=== PATIENT | male | born 1955 | race Caucasian/White ===

== ENCOUNTER 2018-12-25 08:59 | Emergency (ER) | payer BC, SELFPAY ==
[2018-12-25 09:07] VITALS: BP 123/80; PULSE 56; RESP 18; TEMP 36.5; O2SAT 95
--- NOTE | 2018-12-25 09:45 | W.ED.GENAD ---
Discharge Plan Disposition Patient Disposition: HOME Condition: Good Discharge Details Chief Complaint: Laceration Clinical Impression: Puncture wound Primary Care Provider: None,None ED Provider: Katy Haskins Home Meds and New Rx's Prescriptions: No Action No Known Home Meds RF: 0 Discharge Instructions Instructions: Puncture Wound (ED) Additional Instructions: Tetanus updated today. Please monitor area for signs of infection including redness, warmth, drainage, increased pain, fever/chills. If these or other new/worsening symptoms arise please seek care urgently once again. You will be contacted in the next few days regarding follow-up with primary care Medical Decision Making Patient is 63-year-old [id number] male presenting today for evaluation of injury he sustained yesterday. He reports he was pulling up carpet and 1 of the taxi typically hold on the carpet punctured the right middle finger. His primary concern at this time is that his tetanus is not up-to-date. Patiently recently moved here from [place] and also does not have a primary care, hoping to establish. He is having minimal pain at the impact site. Denies any fevers or chills. Plan to update tetanus. I have asked her care according to help facilitate follow-up with primary care. He was given return instructions, particular signs of infection. All his questions and concerns were addressed and he is in agreement this plan HPI General Mode of arrival: ambulatory. Date/Time Provider Initiated Documentation: 12/25/18 09:45. Limitations to Documentation: no limitations. Information obtained by: patient and RN notes reviewed. History of Present Illness 63 year old M presents to the emergency department with the chief complaint of laceration right middle finger, described as mild, with intensity rated at 1. Quality is described as burning (when exposed to alcohol), and is localized to the right and upper extremity. Patient reports no radiation. Patient started experiencing this day(s) (1) and it has been constant. No relieving factors improve symptom(s), Movement worsens symptoms . Patient notes no other symptoms.. Patient did receive the following treatments prior to arrival, none Related Data Home Medications Medication Instructions Recorded Confirmed Unknown [No Known Home Meds] 12/25/18 12/25/18 Allergies Allergy/AdvReac Type Severity Reaction Status Date / Time No Known Allergies Allergy Unverified 12/25/18 09:12 General Stated Complaint: Laceration OTTONIEL: 4 Review of Systems Constitutional Reports as per HPI, Denies chills and Denies fever(s) Musculoskeletal Reports as per HPI Integumentary/Breasts Reports as per HPI Neurologic Reports as per HPI, Denies sensory deficit and Denies paresthesias [facility] Social History Smoking/Tobacco Use Status: Never Alcohol Intake: current Alcohol Intake frequency: 3 or more drinks per day Drug use: Occasionally Substance use type: marijuana Do you feel safe at home: Yes Exam Const General: cooperative, healthy appearing, comfortable, no acute distress and well developed Nutritional Appearance: average body habitus and well nourished Orientation: alert and awake Resp Effort & Inspection: normal respiratory effort, able to speak in complete sentences and no respiratory distress Cardio Rate: regular rate Rhythm: regular rhythm Skin Trauma: puncture (tip of right middle finger, 2mm) Neuro General: alert and awake Cognition: normal cognition Speech: speech normal Gait: normal gait Sensory Exam: no sensory deficits noted Extrem Left upper extremity: normal capillary refill, no joint enlargement and hand Details: neuromotor exam normal, neurosensory exam normal, tendon exam normal, no swelling and puncture wound; abnormal to inspection (puncture wound as above tip of middle finger) Psych Appearance: grossly normal and well kempt Mental Status: mental status grossly normal Speech and Movement: speech and movement normal Course Vital Signs Temperature 36.5 C 12/25/18 09:07 Pulse 56 L 12/25/18 09:07 Respiratory Rate 18 12/25/18 09:07 Blood Pressure 123/80 12/25/18 09:07 Pulse Oximetry 95 12/25/18 09:07 Temperature 36.5 C 12/25/18 09:07 Temperature Source Tympanic 12/25/18 09:07 Pulse 56 L 12/25/18 09:07 Respiratory Rate 18 12/25/18 09:07 Respiratory Effort Non-Labored 12/25/18 09:10 Blood Pressure 123/80 12/25/18 09:07 Blood Pressure Position Sitting 12/25/18 09:07 Pulse Oximetry 95 12/25/18 09:07 Oxygen Delivery Method Room Air 12/25/18 09:07 Oxygen Flow Rate 0 12/25/18 09:07 Pain Level 1 12/25/18 09:07
--- NOTE | 2018-12-25 09:50 | ED.GENADUL_ITS ---
Discharge Plan Disposition Patient Disposition: HOME Condition: Good Discharge Details Chief Complaint: Laceration Clinical Impression: Puncture wound Primary Care Provider: None,None ED Provider: Katy Haskins Home Meds and New Rx's Prescriptions: No Action No Known Home Meds RF: 0 Discharge Instructions Instructions: Puncture Wound (ED) Additional Instructions: Tetanus updated today. Please monitor area for signs of infection including redness, warmth, drainage, increased pain, fever/chills. If these or other new/worsening symptoms arise please seek care urgently once again. You will be contacted in the next few days regarding follow-up with primary care Medical Decision Making Patient is 63-year-old eepbl-ybob-zmxirret male presenting today for evaluation of injury he sustained yesterday. He reports he was pulling up carpet and 1 of the taxi typically hold on the carpet punctured the right middle finger. His primary concern at this time is that his tetanus is not up-to-date. Patiently recently moved here from [place] and also does not have a primary care, hoping to establish. He is having minimal pain at the impact site. Denies any fevers or chills. Plan to update tetanus. I have asked her care according to help facilitate follow-up with primary care. He was given return instructions, particular signs of infection. All his questions and concerns were addressed and he is in agreement this plan HPI General Mode of arrival: ambulatory . Date/Time Provider Initiated Documentation: 12/25/18 09:45 . Limitations to Documentation: no limitations . Information obtained by: patient and RN notes reviewed . History of Present Illness 63 year old M presents to the emergency department with the chief complaint of laceration right middle finger, described as mild, with intensity rated at 1. Quality is described as burning (when exposed to alcohol), and is localized to the right and upper extremity. Patient reports no radiation. Patient started experiencing this day(s) (1) and it has been constant. No relieving factors improve symptom(s), Movement worsens symptoms . Patient notes no other symptoms.. Patient did receive the following treatments prior to arrival, none Related Data Home Medications Medication Instructions Recorded Confirmed Unknown [No Known Home Meds] 12/25/18 12/25/18 Allergies Allergy/AdvReac Type Severity Reaction Status Date / Time No Known Allergies Allergy Unverified 12/25/18 09:12 General Stated Complaint: Laceration OTTONIEL: 4 Review of Systems Constitutional Reports as per HPI, Denies chills and Denies fever(s) Musculoskeletal Reports as per HPI Integumentary/Breasts Reports as per HPI Neurologic Reports as per HPI, Denies sensory deficit and Denies paresthesias COUNT INCLUDES THE [facility] Social History Smoking/Tobacco Use Status: Never Alcohol Intake: current Alcohol Intake frequency: 3 or more drinks per day Drug use: Occasionally Substance use type: marijuana Do you feel safe at home: Yes Exam Const General: cooperative, healthy appearing, comfortable, no acute distress and well developed Nutritional Appearance: average body habitus and well nourished Orientation: alert and awake Resp Effort & Inspection: normal respiratory effort, able to speak in complete sentences and no respiratory distress Cardio Rate: regular rate Rhythm: regular rhythm Skin Trauma: puncture (tip of right middle finger, 2mm) Neuro General: alert and awake Cognition: normal cognition Speech: speech normal Gait: normal gait Sensory Exam: no sensory deficits noted Extrem Left upper extremity: normal capillary refill, no joint enlargement and hand Details: neuromotor exam normal, neurosensory exam normal, tendon exam normal, no swelling and puncture wound; abnormal to inspection (puncture wound as above tip of middle finger) Psych Appearance: grossly normal and well kempt Mental Status: mental status grossly normal Speech and Movement: speech and movement normal Course Vital Signs Temperature 36.5 C 12/25/18 09:07 Pulse 56 L 12/25/18 09:07 Respiratory Rate 18 12/25/18 09:07 Blood Pressure 123/80 12/25/18 09:07 Pulse Oximetry 95 12/25/18 09:07 Temperature 36.5 C 12/25/18 09:07 Temperature Source Tympanic 12/25/18 09:07 Pulse 56 L 12/25/18 09:07 Respiratory Rate 18 12/25/18 09:07 Respiratory Effort Non-Labored 12/25/18 09:10 Blood Pressure 123/80 12/25/18 09:07 Blood Pressure Position Sitting 12/25/18 09:07 Pulse Oximetry 95 12/25/18 09:07 Oxygen Delivery Method Room Air 12/25/18 09:07 Oxygen Flow Rate 0 12/25/18 09:07 Pain Level 1 12/25/18 09:07
== END 2018-12-25 10:12 | disposition home or self-care (01) ==
PROVIDERS: Emergency Provider Physician Assistant
DX: S61.232A Puncture wound without foreign body of right middle finger without damage to nail, initial encounter (principal); W45.8XXA Other foreign body or object entering through skin, initial encounter
CPT/HCPCS: 90471; 99282

== ENCOUNTER 2019-05-19 10:39 | Outpatient (REF) | payer BC, SELFPAY ==
[2019-05-19 12:57] LABS: ALT 34 U/L (16-63); AST 20 U/L (15-37); Albumin 3.8 g/dL (3.4-5.0); Alkaline Phosphatase 112 U/L (46-116); BUN 17 mg/dL (7-18); Bilirubin, Total 0.6 mg/dL (0.2-1.0); CREATININE 1.07 mg/dL (0.70-1.30); Calcium 9.3 mg/dL (8.5-10.1); Calculated LDL 159 mg/dL; Chloride 103 mmol/L (98-107); Cholesterol 243 mg/dL (50-200); Glucose 81 mg/dL (70-100); HDL Cholesterol 70 mg/dL (40-60); Potassium 4.5 mmol/L (3.5-5.1); Sodium 140 mmol/L (136-145); Total Protein 6.9 g/dL (6.4-8.2); Triglyceride 70 mg/dL (30-150)
== END 2019-05-19 10:59 ==
LOC: NCHCN 10:39
PROVIDERS: PCP Specialist/Technologist Athletic Trainer; Visit Provider Specialist/Technologist Athletic Trainer
DX: R73.03 Prediabetes (principal); R94.4 Abnormal results of kidney function studies
CPT/HCPCS: 80053; 80061

== ENCOUNTER 2019-07-23 07:03 | Day surgery (SDC) | payer BC, SELFPAY ==
[2019-07-23 07:11] VITALS: BP 131/81; PULSE 58; RESP 16; TEMP 36.2; O2SAT 99
[2019-07-23] MEDS: Lactated Ringers 1,000 ML 80 ML IV (07:35)
--- NOTE | 2019-07-23 08:55 | W.COLOREPORT ---
Date of service: 07/23/19 Time of Service: 08: Colonoscopy Report Date of procedure: 07/23/19 Pre-op diagnosis general: Colon Cancer Screening Post-op diagnosis procedure note: same (internal Hemorrhoids) Procedure: Colonoscopy with internal hemorrhoid banding Surgeon: Cheryl Martin Anesthesia proc note operative: other (Gneral/ ASA 2/ Jose Alfredo Morales CRNA) Estimated blood loss (mL): 2 Pathology: none sent Complications: None Disposition: same day Indications: 63 y/o male with benign medial history presents for colonoscopy screening pre-op. His last screening was 10+ years ago, which was unremarkable. He denies a family history of colon cancer. He denies any changes in bowel habits. OF note he reports sporadic bleeding and prolapse of internal hemorrhoids which he would like evaluated further. Denies black tarry stools, abdominal pain, diarrhea or constipation. He denies constitutional symptoms. He reports daily use of marijuana through smoking and edibles. Prep: Miralax/Dulcolax Procedure Start Time: : Procedure End Time: 08:48 Retraction Time: 18 minutes Findings: 2 internal hemorrhoids Procedure Description: After informed consent was obtained the patient was taken to the procedure room and placed in a left decubitous position. Monitors were applied and a time out was done. The patients name, date of , procedure, allergies to medications and metal in their body was reviewed. The patient was then sedated. Once sedated and comfortable a rectal exam was done. External exam was normal. Internal exam revealed a slightly relaxed sphincter tone and no palpable masses. There was some mild rectal prolapse. The prostate felt smooth. The scope was then introduced and retro-flexed. Grade 2 internal hemorrhoids were identified. The scope was then advanced to the cecum without difficulty. The TI and appendiceal orifice were identified. The prep was good. The scope was then slowly retracted over 18 minutes back into the rectum. There were no polyps and no diverticula. The 2 internal Hemorrhoids were then banded with the Bandito Endoscopic Ligator ([id number] [id number], REF [id number]). The scope was removed and the patient was woken up and taken back to Same day surgery in stable condition. The patient tolerated the procedure well and there were no immediate complications. Follow up: The patient should follow up in 10 years unless they develop changes in bowel habits or other new gastrointestinal complaints.
--- NOTE | 2019-07-23 09:03 | W.PM.DSUDISC ---
Discharge Plan Disposition Patient Disposition: HOME Condition: Good Discharge Details Reason For Visit: Colon CAncer Screening Attending Provider: Cheryl Martin Primary Care Provider: Gavino Dejesus Home Meds and New Rx's Prescriptions: New lidocaine HCl 2 % jelly 1 applic TP QD-TID PRN (Reason: pain) Qty: 30 RF: 0 Continued acetaminophen [Tylenol Extra Strength] 500 mg tablet 500 mg PO PRN PRNRF: 0 cholecalciferol (vitamin D3) [Vitamin D3] 125 mcg (5,000 unit) Tablet 10,000 mcg PO DAILY RF: 0 Discharge Instructions Instructions: Hemorrhoids (DC), Rubber Band Ligation (DC) Additional Instructions: Findings: Internal hemorrhoids Follow up: 10 years for next colonoscopy Other: Sit is a bathtub with warm water as needed for discomfort Apply lidocaine 2-4 times a day as needed for pain Please call if you develop: fevers >101.5 Nausea or Vomiting Abdominal pain that is not transient DAY SURGERY UNIT POST ENDOSCOPY INSTRUCTIONS 1. Because there will be medication in your system for the next 24 hours, you may feel a little sleepy. Your coordination will be affected. Therefore: a. Do not drive or operate dangerous equipment for 24 hours. b. Do not drink alcohol beverages for 24 hours (not even beer). c. Plan to go home and rest for the day. 2. Generally there are no restrictions on your activity after a day or so has gone by, but you may feel a bit fatigued for a few days. 3 After you arrive home you may have a light meal and return to a normal diet as you can tolerate it without feeling sick to your stomach. 4. After surgery, you may feel pain or discomfort. This should be only transient, but if it persists please contact your doctor. 5. If there are any questions regarding the findings of your procedure, please feel free to contact your doctor. 6. If you are unable to contact your doctor with a problem, contact the hospital at [phone]. 7. Continue all your regular medications unless directed otherwise. I understand the above instructions and have no questions. Signature of Patient or Responsible Adult Escort Date/Time Name of Responsible Adult Escort Signature of Nurse Date/Time Activity:: Activity as Tolerated Diet:: High Fiber diet Discharge Orders Discharge Orders: Discharge Order (Routine); Ordered 07/23/19 Ordered By: Cheryl Martin DS: Diagnosis Discharge Diagnosis (1) Internal hemorrhoids without complication: Status: Acute
[2019-07-23 09:27] VITALS: BP 111/77; PULSE 48; RESP 17; TEMP 36.2; O2SAT 100
== END 2019-07-23 09:53 | disposition home or self-care (01) ==
PROVIDERS: PCP Specialist/Technologist Athletic Trainer; Visit Provider Surgery
PROC: 0DJD8ZZ Inspection of Lower Intestinal Tract, Via Natural or Artificial Opening Endoscopic (ICD-10-PCS; CPT 45378; principal; 2019-07-23 08:00)
PROC: (CPT 45398; 2019-07-23 08:00)
DX: Z12.11 Encounter for screening for malignant neoplasm of colon (principal); K64.1 Second degree hemorrhoids
CPT/HCPCS: 45398; J2001

== ENCOUNTER 2020-03-16 09:03 | Outpatient (REF) | payer BC, SELFPAY ==
[2020-03-16 21:18] LABS: HCT 49.1 % (40.0-50.0); HGB 16.4 g/dL (13.5-17.5); MCH 30.5 pg (27.0-33.0); MCHC 33.4 % (32.0-36.0); MCV 91.4 fL (80-95); MPV 10.9 fL (8.0-11.0); Platelet Count 291 10^3/uL (130-400); RBC 5.37 10^6/uL (4.36-5.78); RDW 13.3 % (11.8-14.1); RDW-SD 45.1 fL; WBC 7.02 10^3/uL (4.4-10.8)
[2020-03-16 21:24] LABS: ALT 23 U/L (16-63); AST 10 U/L (15-37); Alkaline Phosphatase 100 U/L (46-116); BUN 16 mg/dL (7-18); Bilirubin, Total 0.6 mg/dL (0.2-1.0); CREATININE 1.14 mg/dL (0.70-1.30); Calcium 9.1 mg/dL (8.5-10.1); Calculated LDL 139 mg/dL (<100); Chloride 105 mmol/L (98-107); Cholesterol 228 mg/dL (<200); Glucose 92 mg/dL (74-106); HDL Cholesterol 71 mg/dL (40-60); Potassium 4.7 mmol/L (3.5-5.1); Sodium 141 mmol/L (136-145); Total Protein 6.8 g/dL (6.4-8.2); Triglyceride 92 mg/dL (<150)
[2020-03-16 21:39] LABS: Hemoglobin A1C 5.7 % (<5.7)
[2020-03-17 18:26] LABS: PSA, Screening 1.1 ng/mL (0.0-4.5)
== END 2020-03-16 09:23 ==
LOC: NCHCN 09:03
PROVIDERS: PCP Specialist/Technologist Athletic Trainer; Visit Provider Family Medicine
DX: Z00.00 Encounter for general adult medical examination without abnormal findings (principal); R73.03 Prediabetes; Z12.5 Encounter for screening for malignant neoplasm of prostate; Z13.220 Encounter for screening for lipoid disorders
CPT/HCPCS: 80053; 80061; 84153; 85027; 83036

== ENCOUNTER 2020-04-22 00:19 | Outpatient (CLI) | payer BC, SELFPAY ==
--- NOTE | 2020-04-22 | DI.US_ITS ---
EXAM: US AAA SCREENING CLINICAL HISTORY: SCREENING FOR AAA, EX SMOKER,Z87.891 TECHNIQUE: Ultrasound performed using standard protocol. COMPARISON: No exams were available for comparison FINDINGS: Limited ultrasound examination of the abdomen was performed for evaluation abdominal aorta. Abdomina l aorta is of normal diameter, maximal diameter in the mid to distal aorta is about 21 millimeters. No para-aortic fluid collection. Common iliac arteries are within normal limits in diameter bilaterally at about 11 millimeters. IMPRESSION: No evidence of an abdominal aortic aneurysm. DATA REPOSITORY:
== END 2020-04-22 00:39 ==
PROVIDERS: PCP Specialist/Technologist Athletic Trainer; Visit Provider Family Medicine
DX: Z87.891 Personal history of nicotine dependence (principal)
CPT/HCPCS: 76706

== ENCOUNTER 2021-04-04 14:39 | Outpatient (REF) | payer BC, SELFPAY ==
[2021-04-04 21:09] LABS: Hemoglobin A1C 5.6 % (<5.7)
[2021-04-04 21:17] LABS: ALT 24 U/L (16-63); AST 17 U/L (15-37); Alkaline Phosphatase 113 U/L (46-116); Anion Gap 8.4 mmol/L (3-11); BUN 15 mg/dL (7-18); Bilirubin, Total 0.5 mg/dL (0.2-1.0); CO2 28.6 mmol/L (21.0-32.0); Calcium 9.1 mg/dL (8.5-10.1); Chloride 103 mmol/L (98-107); Glucose 85 mg/dL (74-106); Potassium 4.1 mmol/L (3.5-5.1); Sodium 140 mmol/L (136-145); Total Protein 7.1 g/dL (6.4-8.2)
[2021-04-05 18:10] LABS: PSA, Screening 1.9 ng/mL (0.0-4.5)
== END 2021-04-04 14:40 | disposition home or self-care (01) ==
LOC: NCHCN 14:39
PROVIDERS: PCP Specialist/Technologist Athletic Trainer; Visit Provider Family Medicine
DX: E78.5 Hyperlipidemia, unspecified (principal); R73.03 Prediabetes; Z12.5 Encounter for screening for malignant neoplasm of prostate
CPT/HCPCS: 80053; 84153; 83036

== ENCOUNTER 2022-04-07 14:46 | Outpatient (REF) | payer BC, SELFPAY ==
[2022-04-07 19:06] LABS: ALT 32 U/L (16-63); AST 25 U/L (15-37); Albumin 4.2 g/dL (3.4-5.0); Alkaline Phosphatase 99 U/L (46-116); Anion Gap 7.9 mmol/L (3-11); BUN 22 mg/dL (7-18); Bilirubin, Total 0.6 mg/dL (0.2-1.0); CO2 30.1 mmol/L (21.0-32.0); CREATININE 1.3 mg/dL (0.70-1.30); Calcium 9.7 mg/dL (8.5-10.1); Calculated LDL 165 mg/dL (<100); Chloride 102 mmol/L (98-107); Cholesterol 257 mg/dL (<200); Estimated GFR 59.84 (mL/min/1.73m2); Glucose 94 mg/dL (74-106); HDL Cholesterol 75 mg/dL (40-60); Potassium 4.4 mmol/L (3.5-5.1); Sodium 140 mmol/L (136-145); Total Protein 7.6 g/dL (6.4-8.2); Triglyceride 89 mg/dL (<150)
[2022-04-10 10:59] LABS: PSA, Screening 1.5 ng/mL (<=4.5)
== END 2022-04-07 14:47 | disposition home or self-care (01) ==
LOC: NCHCN 14:46
PROVIDERS: PCP Specialist/Technologist Athletic Trainer; Visit Provider Family Medicine
DX: E78.5 Hyperlipidemia, unspecified (principal); Z12.5 Encounter for screening for malignant neoplasm of prostate
CPT/HCPCS: 80053; 80061; 84153

== ENCOUNTER 2023-04-02 18:20 | Outpatient (REF) | payer MEDICARE, BC, SELFPAY ==
[2023-04-02 15:48] LABS: ALT 20 U/L (16-63); AST 15 U/L (15-37); Albumin 3.7 g/dL (3.4-5.0); Alkaline Phosphatase 112 U/L (46-116); Anion Gap 11.1 mmol/L (3-11); BUN 19 mg/dL (7-18); Bilirubin, Total 0.5 mg/dL (0.2-1.0); CO2 24.9 mmol/L (21.0-32.0); CREATININE 1.2 mg/dL (0.70-1.30); Calcium 9.5 mg/dL (8.5-10.1); Calculated LDL 158 mg/dL (<100); Chloride 102 mmol/L (98-107); Cholesterol 240 mg/dL (<200); Estimated GFR 65.46 (mL/min/1.73m2); Glucose 97 mg/dL (74-106); HDL Cholesterol 68 mg/dL (40-60); Potassium 4.5 mmol/L (3.5-5.1); Sodium 138 mmol/L (136-145); Total Protein 6.6 g/dL (6.4-8.2); Triglyceride 73 mg/dL (<150)
[2023-04-02 23:11] LABS: PSA, Screening 1.8 ng/mL (<=4.5)
== END 2023-04-02 18:21 | disposition home or self-care (01) ==
LOC: NCHCN 18:20
PROVIDERS: PCP Specialist/Technologist Athletic Trainer; Visit Provider Family Medicine
DX: Z00.00 Encounter for general adult medical examination without abnormal findings (principal); E78.5 Hyperlipidemia, unspecified; R73.03 Prediabetes; Z12.5 Encounter for screening for malignant neoplasm of prostate
CPT/HCPCS: 80053; 80061; 84153

== ENCOUNTER → 2023-10-10 04:19 | Outpatient (CLI) | payer MEDICARE, BC, SELFPAY ==
--- NOTE | 2023-10-10 10:06 | DI.RAD_ITS ---
Exam(s) XR CHEST 2V PA LATERAL EXAM: XR CHEST 2V PA LATERAL CLINICAL HISTORY: ANGINA PECTORIS I20.9 TECHNIQUE: 2D digital imaging was performed. Two views. COMPARISON: No exams were available for comparison FINDINGS: HEART: Normal size. Aorta: Not dilated. PULMONARY VASCULATURE: Normal. LUNGS: Clear. PLEURAL SPACE: No pleural effusion or pneumothorax. BONE:Unremarkable for age. Soft tissues: Unremarkable. IMPRESSION: No acute abnormality. DATA REPOSITORY: RADIATION DOSE DELIVERED:
== END ==
PROVIDERS: PCP Specialist/Technologist Athletic Trainer; Visit Provider Family Medicine
DX: I20.9 Angina pectoris, unspecified (principal)
CPT/HCPCS: 71046

== ENCOUNTER → 2023-10-25 02:15 | Outpatient (CLI) | payer MEDICARE, BC, SELFPAY ==
--- NOTE | 2023-10-25 | ETT_ITS ---
APPROVED REPORT Exam: Exercise Treadmill Patient Location: Out-Patient Room/Bed: Stress Nurse: Jennifer Gandhi RN Ordering Provider:VENANCIOJules ROSENBERG, Contact Number: [phone] BMI: 26.94 Baseline Rhythm: Sinus Bradycardia Indications: Angina, Medical History Medical History: Former smoker, HLD, anxiety, OA, pre-diabetes Cardiac Medications: None Allergies: NKA Cardiac Risk Factors: Family hx, prediabetes, HLD, former smoker Previous Cardiac Procedures: None Pretest Chest Pain Characteristics: None Exercise History: Physically active Physical Disabilities: None Lung Sounds: Clear to auscultation Heart Sounds: Bradycardia Stress Test Details Test: Exercise stress testing was performed using a Eloy protocol. Rest Stress HR Resting HR Supine: 55 bpm Max Heart Rate (APMHR): 151 bpm Resting HR Standin bpm Target HR (85% APMHR): 128 bpm Max HR Achieved: 129 bpm % of APMHR: 85 Recovery HR: 59 bpm HR response to stress: Normal HR response to stress BP Resting BP Supine: 130/80 mmHg Resting BP Standin/78 mmHg Max BP: 170/80 mmHg Recovery BP: 124/80 mmHg BP response to stress: Normal blood pressure response to stress. ECG Resting ECG: Sinus Bradycardia Ectopy: None Stress ECG: Sinus Tachycardia ST Change: No significant ST segment changes noted Recovery ECG: Sinus Rhythm Recovery ST Change: No significant ST segment changes noted Recovery Arrhythmia: Rare PAC's Clinical Reason for Termination: Target HR Achieved Stress Symptoms: None Exercise duration: 07 min08 sec Highest Stage Reached: Stage 3: 3.4 mph at 14% grade. Exercise capacity: 8.80 METs Angina Score: None Hewitt Treadmill Score: 6.2 Rate Pressure Product: [id number] Stress ECG Conclusion 1. EKG shows left anterior fascicular block 2. Patient exercised on the Eloy protocol and completed a workload of 8.8 METS 3. Normal heart rate and blood pressure response to exercise. Patient achieved 85% of predicted hear t rate for age 4. There was no electrocardiographic evidence of myocardial ischemia 5. There were no significant dysrhythmias Hewitt Treadmill Score is 6.2 which is Low risk. Stress Test Summary STAGE Time (mins) Speed (mph) Grade (%) HR BP SpO2 SYMPTOMS METS Supine 55 130/80 97 Standing 55 122/78 1 3 1.7 10 96 120/80 94 4.5 2 6 2.5 12 113 7 3 9 3.4 14 128 10 1 min recovery 103 170/80 98 3 min recovery 69 158/88 99 6 min recovery 59 124/80 99
== END ==
PROVIDERS: PCP Family Medicine; Visit Provider Family Medicine
DX: I20.9 Angina pectoris, unspecified (principal)
CPT/HCPCS: 93016; 93018; 93017

== ENCOUNTER → 2024-01-16 02:02 | Outpatient (CLI) | payer MEDICARE, BC, SELFPAY ==
--- NOTE | 2024-01-16 | DI.US_ITS ---
Exam(s) US ABDOMEN LIMITED EXAM: US ABDOMEN LIMITED CLINICAL HISTORY: RUQ PAIN,R10.11 TECHNIQUE: Ultrasound abdomen performed using standard protocol. COMPARISON: US US AAA SCREENING from 04/22/2020 FINDINGS: There is no ascites evident. LIVER: There are no hepatic lesions evident nor dilatation of intrahepatic ducts. GALLBLADDER/BILIARY: There are no gallstones. No gallbladder wall edema nor pericholecystic fluid. The common hepatic duct isnot dilated, measuring 3-4mm at the level of leonila hepatis. PANCREAS: There is no evidence of pancreatic mass nor dilatation of the pancreatic duct. RIGHT KIDNEY:No evidence of solid mass, calculus, nor hydronephrosis. No cortical cysts evident. IMPRESSION: 1. No evidence of cholelithiasis nor dilatation of the biliary tree. 2. No other significant ultrasound findings in the right upper quadrant. 3. There is no ascites. DATA REPOSITORY:
--- NOTE | 2024-01-16 | DI.NM_ITS ---
Exam(s) NM HEPATOBILIARY CCK GRP EXAM: NM HEPATOBILIARY CCK GRP CLINICAL HISTORY: RUQ PAIN, R10.11. TECHNIQUE: Injected dose: 4.8 mCi Tc-99 mebrofenin Addition images: 20 minute dynamic during CCK administration. COMPARISON: Ultrasound of 01/16/2024 was reviewed FINDINGS: There is normal uptake and excretion of radiopharmaceutical by the liver and activity is seen within the gallbladder lumen starting at 8 minutes. It extends down the nondilated CBD into the duodenal C- loop. In spines to CCK infusion there is an ejection fraction of only 21 percent demonstrated over 44 minut es of infusion. Lower limits of normal our department is 35 percent IMPRESSION: 1. No evidence of obstruction of the cystic duct to suggest acute cholecystitis. 2. However, there is reduced gallbladder ejection fraction demonstrated response to CCK infusion. Th is is 21 percent which is lower than 35 percent which is the lower limits of normal. This implies an element of gallbladder dysfunction.
[2024-01-16] MEDS: Sincalide 5 MCG VIAL 1 MCG IJ (08:30)
== END ==
PROVIDERS: PCP Family Medicine; Visit Provider Family Medicine
DX: R10.11 Right upper quadrant pain (principal)
CPT/HCPCS: 78227; J2805; 76705

== ENCOUNTER → 2024-02-11 13:46 | Outpatient (BNVA) | payer MEDICARE, BC, SELFPAY | PROVIDERS: PCP Family Medicine; Referring Provider Family Medicine; Visit Provider Surgery | DX: K82.8 Other specified diseases of gallbladder (principal); E78.2 Mixed hyperlipidemia | CPT/HCPCS: 99204 ==

== ENCOUNTER 2024-02-19 07:13 | Day surgery (SDC) | payer MEDICARE, BC, SELFPAY ==
--- NOTE | 2024-02-18 11:29 | W.PM.DSUDISC ---
Date of service: 02/19/24 Time of Service: 12:55 Discharge Plan Disposition Patient Disposition: Home Condition: Good Discharge Details Reason For Visit: gallbladder removal Attending Provider: Aylin Martins Primary Care Provider: America Caro Home Meds and New Rx's Prescriptions: New tramadol 50 mg tablet 50 mg PO Q4H PRNQty: 14 0RF ondansetron 4 mg tablet,disintegrating 4 mg PO Q6H PRNQty: 7 0RF Continued acetaminophen [Tylenol Extra Strength] 500 mg tablet 500 mg PO PRN PRN cholecalciferol (vitamin D3) [Vitamin D3] 125 mcg (5,000 unit) Tablet 10,000 mcg PO DAILY Discharge Instructions Additional Instructions: Care after Gallbladder Surgery -Pain control: ?For the first 72 hours after surgery, take your pain meds continuously, and not just when you have pain.?? Alternate Tylenol 1000mg by mouth every 8 hours, and Ibuprofen 600mg every 6 hours.? Make sure you take ibuprofen with food and not on an empty stomach.? ??Use the tramadol for breakthrough pain- pain that is greater than a 7. ?- Use ICE! Ice really helps to keep the swelling down, and swelling causes pain. ??Twenty minutes on, and then off, continuously for the first 72hours.? After the first 72hrs, you can just use the Tylenol, ibuprofen or Celebrex, and ice, when you have pain.?? If you are taking narcotic pain medication, follow the instructions on the label and do not drive. Pain medications can make you very constipated. Make sure you are moving your bowels daily. If not, take Miralax. - Anesthesia makes you very constipated.? Take a dose of Miralax the morning after surgery. ? Use an ice bag for the first 72 hours. This helps to decrease swelling, which causes pain. It is normal to be more sore/painful and swollen towards the end of the day and first thing in the morning. ? Gallbladder surgery can make you very nauseated; use Zofran for nausea, for the first 24 hours. The nausea generally stops after 24 hours. ? Use Miralax or prune juice to prevent constipation (this is a particular side effect of pain medication and anesthesia). Do not allow yourself to become constipated. ? Avoid fatty or greasy foods; introduce these slowly, with care, after about 1 month. High-fat foods include: ? Foods that are fried, like Armenian fries and potato chips ? High-fat meats, such as simmons, bologna, sausage, ground beef, and ribs, pork products ? High-fat dairy products, such as cheese, ice cream, cream, whole milk, and sour cream ? Pizza ? Foods made with lard or butter ? Creamy soups or sauces ? Meat gravies ? Chocolate ? Oils, such as palm and coconut oil ? Skin of chicken or turkey ? Nuts and nut butters ? Avocadoes ? Start out eating very small, bland amounts of food. Do not take pain pills on an empty stomach. - You will notice purple discoloration around the incisions.? This is the ?skin glue?.? This will wear off on its own.? It is OK to shower after 24hrs.? You do not need to cover the incisions. -You should walk frequently, gradually, increasing the distance. You may climb stairs, just go slowly. ? Do not go swimming or sit in a hot tub for two weeks. ? There are no stitches to remove. ? Do not drive your car x72hrs and then only if you have no pain and can move freely. Do not drive if you are taking pain narcotic pain medications. ? You may resume sexual activity whenever pain and soreness subside, usually in 2 weeks. ? Do no lift anything over 5 lbs. for two weeks. ? You may return to work in one week, or when you feel able, provided you do not have to do any heavy lifting or prolonged standing. ? You should return to Dr. Martins?s office for a post-op appointment about two weeks after surgery. A follow-up should have been scheduled for you already.? If there is not, please call the Surgical [facility] at: [phone] to schedule an appointment. My Medications for pain and nausea are: Tylenol/ibuprofen ?and ultram- for severe pain ?and Zofran-nausea When to Call the Office: ? If the incision becomes red or swollen, or there is more than a little drainage from it. ? If you develop a temperature higher than 100.5 F. ? If your eyes turn yellow ? Vomiting and can?t keep fluids down Stand Alone Forms: Anesthesia Discharge InstMeggan Cox (DSU) Activity:: Above Remove Dressings/Wound Care:: 24 hours Shower/Bathe:: 24 hours Diet:: See above Discharge Orders Discharge Orders: Discharge Order (Routine); Ordered 02/18/24 Ordered By: Aylin Martins DS: Diagnosis Discharge Diagnosis (1) Elevated cholesterol with elevated triglycerides: Status: Acute (2) Biliary dyskinesia: Status: Acute Asessment and Plan: The patient is doing well post-op from their [] surgery.? They are having no nausea or vomiting. They are tolerating liquids and a snack. The pt is not having any chest pain or SOB.? Their pain is adequately controlled. They have been able to urinate.? ?HEENT:? no eye pain/drainage/redness/swelling. Mild sore throat ?Cardio- NSR, no chest pain, BP stable- see VS record ?Pulm: no sob or productive cough. No hemoptysis ?Incision- dressing is c/d/i w/ no excessive bleeding or drainage ?I discussed with the patient the findings at the time of surgery and the patient?s progress. ?We reviewed expectations at home; what the patient could expect for recovery time, and in the post-operative period.? We discussed the importance of walking to avoid blood clots and pneumonia.? We discussed and reviewed the patient's post-operative wound care and dressing needs.?? We reviewed their [place] pain management plan, Rx called to the pharmacy of their choice.? We reviewed activity and limitations-see discharge instructions. We reviewed warning signs, and when to seek medical attention- see d/c instructions.?? Patient was given a postoperative follow-up appointment. Patient verbalized understanding of their postoperative instructions, how do to take care of themselves and their incision, and the pain management plan. Please see discharge instructions.?
--- NOTE | 2024-02-18 11:35 | W.PM.OP ---
Date of service: 02/19/24 Time of Service: 11:22 Operative Note Operative Note DATE OF PROCEDURE: 02/19/24 PRE-OP DIAGNOSIS: Biliary dyskinesia POST-OP DIAGNOSIS: same PROCEDURE: Laparoscopic cholecystectomy SURGEON: Aylin Dunlap TELEPHONE DIRECTORY DELIVERER: Miguel Bueno ANESTHESIA TYPE: Local By Surgeon and General LMA/ETT Refer to Anesthesia Record ESTIMATED BLOOD LOSS: 5 PATHOLOGY: other COMPLICATIONS: None Patient was transported to: PACU Patient's condition: stable Procedure Description: INDICATIONS: The pt is seen at the request of there PCP regarding biliary dyskinesia. The pt has failed outpt conservative medical measures and is here today for laparoscopic cholecystectomy. Informed consent was obtained, explaining risks and benefits of the procedure including but not limited to bleeding, infection, pneumonia, blood clots, possible damage to bowel, bladder, blood vessels, bile ducts, possible open procedure, complications of general anesthesia and other unforetold complications. PROCEDURE: The patient agrees and is brought to the operative room suite and placed in supine position. Pt receives IV ICG preOp to aid w/ bile duct visualization.? Anesthesia was administered per the Department of Anesthesia. The patient did receive IV antibiotics. NG tube and Preston catheter are placed. The patient was prepped and draped in the usual sterile fashion using DuraPrep scrub solution. Pause for the cause was done. 20 mL of 1% buffered lidocaine was used for local anesthetization. A stab incision was made in the umbilicus and the Verres inserted. Drop test was positive and insufflation was begun. When 15 mm of pressure was noted on the monitor, the Veress was removed and #5 port inserted. The camera was inserted through the port and shows no damage to underlying structures. A 10 mm port was then placed in the epigastric position under direct visualization following creation of local field blocks as well as two 5 mm ports in the right upper quadrant. The camera was moved to one of the secondary ports so we could view the umbilical trocar site, and there is are no hernias or adhesions. The gallbladder fundus was grasped and retracted towards the right shoulder. Infundibulum was grasped and retracted laterally. The hepat-duodenal ligament is entered. The cystic duct and artery are dissected out and the most inferior portion of the gallbladder plate is removed from the liver and the critical view of safety was obtained after clearing away all fatty material. Endo Clips were placed across the duct and artery and these structures are divided. The remainder of the gallbladder was excised from the liver bed. The gallbladder was placed in a bag and brought out. Examination of the gallbladder shows indeed the cystic duct and artery to have been divided. The remainder of the abdomen was copiously irrigated with a liter of saline. All saline is removed. There is no bleeding or bile leakage from the liver bed or the clips sites. An EndoClose needle was used to close the 10 mm port site with an 0 Vicryl. All ports and instruments are removed. SPonge and needle counts are correct. Pneumoperitoneum is evacuated and the port sites are monitored to make sure there is no bleeding at the time of desufflation. ??Port sites are irrigated and the skin is closed with 4-0 Monocryl in a running subcuticular fashion. Skin glue sterile dressings are applied. The patient tolerated the procedure well without complications, transferred to the recovery room in stable condition. AYLIN DUNLAP, DO
--- NOTE | 2024-02-18 18:21 | W.ANESPRE ---
General Info Date of Service Date Performed: 02/19/24 Height: 5 ft 3 in Weight: 65.998 kg Body Mass Index (BMI): 25.7 Surgical Procedure: Operation Date: 02/19/24 08:40 Proposed Procedure Side Surgeon p Cholecystectomy Laparoscopic possible Open Aylin Martins DO Meds Allergies and Home Medications Allergies Allergy/AdvReac Type Severity Reaction Status Date / Time No Known Allergies Allergy Verified 02/19/24 08:08 Home Medication ?Medication ?Instructions ?Recorded acetaminophen 500 mg tablet 500 mg PO PRN PRN 06/26/19 (Tylenol Extra Strength) cholecalciferol (vitamin D3) 125 10,000 mcg PO DAILY 07/21/19 mcg (5,000 unit) tablet (Vitamin D3) ondansetron 4 mg disintegrating 4 mg PO Q6H PRN #7 tabs 02/18/24 tablet tramadol 50 mg tablet 50 mg PO Q4H PRN #14 tabs 02/18/24 Current Visit Medications: Current Medications Generic Name Dose Route Start Last Admin Trade Name Kashmirq PRN Reason Stop Dose Admin Acetaminophen 1,000 mg 02/19/24 06:00 Acetaminophen 500 Mg Tab PO 02/19/24 23:59 PREOP DIETER Gabapentin 600 mg 02/19/24 06:00 Gabapentin 300 Mg Cap PO 02/19/24 23:59 PREOP DIETER Ondansetron HCl 4 mg/ Sodium 52 mls @ 200 mls/hr 02/18/24 11:29 Chloride IVPB 03/19/24 11:28 Q6H PRN PRN Ringer's Solution 1,000 mls @ 80 mls/hr 02/19/24 06:00 IV 02/19/24 23:59 INFUSION DIETER Cefazolin Sodium/Dextrose 2 gm in 50 mls @ 100 mls/hr 02/19/24 06:00 Ancef Duplex IVPB 02/19/24 23:59 PREOP DIETER IV Miscellaneous Supplies 1 each 02/19/24 06:00 Iv Access IV 02/19/24 23:59 DIRECTED DIETER Morphine Sulfate 2 mg 02/18/24 11:29 Morphine 4 Mg/Ml Syr IVP 03/19/24 11:28 Q1H PRN PRN Sodium Chloride 0 ml 02/19/24 06:00 Normal Saline Flush 10 Ml Syr IV 02/19/24 23:59 PRN PRN Sodium Chloride 0 ml 02/19/24 06:00 Normal Saline 10 Ml Vial IJ 02/19/24 23:59 DIRECTED PRN Sterile Water 0 ml 02/19/24 06:00 Water,Injection,Sterile 10 Ml Vial IJ 02/19/24 23:59 DIRECTED PRN Tramadol HCl 50 mg 02/18/24 11:29 Tramadol 50 Mg Tab PO 03/19/24 11:28 Q6H PRN PRN Pain PFSH Active Problems Active Problems: Problem Status Onset Code Biliary dyskinesia Acute K82.8 Elevated cholesterol with elevated triglycerides Acute E78.2 Disorder of gallbladder Acute K82.9 Internal hemorrhoids without complication Acute K64.8 Medical History Medical History History of prediabetes Arthritis Anxiety and depression Carpal tunnel syndrome, bilateral Tendonitis, Achilles, right Hemorrhoids History of cigarette smoking (~1977) Surgical History Surgical History History of colonoscopy 06/2020 - negative exam History of tonsillectomy and adenoidectomy History of appendectomy Tobacco Smoking/Tobacco Use Status: Former Tobacco Use Alcohol Alcohol Intake: current Alcohol intake frequency: 3 or more drinks per day Alcohol type: wine Substance Use Substance use: Daily Substance use type: marijuana Vital Signs and Lab Results Vital Signs Most Recent Vital Signs in EMR: Temp Pulse Resp BP Pulse Ox 36.5 C 53 L 16 135/82 99 02/19/24 08:03 02/19/24 08:03 02/19/24 08:03 02/19/24 08:03 02/19/24 08:03 Lab Results Blood Type / Crossmatch: No Data to Display Complete Blood Count: No Data to Display Complete Metabolic Panel: No Data to Display Liver Function Panel: No Data to Display Coagulation Panel: No Data to Display Cardiac Panel: No Data to Display Arterial Blood Gas: No Data to Display Venous Blood Gas: No Data to Display Pancreas Panel: No Data to Display Thyroid Panel: No Data to Display Infectious Disease: No Data to Display Blood Cultures: No Data to Display Toxicology Panel: No Data to Display Imaging and Studies Imaging and Studies Study information below may be from another EMR and interpreted by another provider. Please see original notes in EMR for more complete details. Stress Test Summary: 11/06: LAFB, 8.8 METS, 85% predicted, no ECG ischemia. Anesthesia Assessment and Plan Anesthesia History Personal History: No History of Anesthesia Complications Family History: No Family History of Anesthesia Complications Exercise Tolerance Exercise Tolerance: Metabolic Equivalents>4 Cardiac & Pulmonary Exam Cardiac Exam: Normal S1/S2 Heart Sounds Pulmonary Exam: Clear Bilateral Breath Sounds Implantable Cardiac Device Does patient have a Pacemaker or an ICD?: No Airway Exam Known Difficult Airway: No Mallampati Class: 2 Mouth Opening: Normal (> 3cm) Thyromental Distance: Greater than 3 cm Neck Range of Motion: Full ROM Neck Circumference: Normal Teeth Condition: Normal Dentition ASA Classification ASA Score: ASA 2 Emergency Case?: No NPO Status NPO Status: NPO Clears >2 hours, Solids >8 hours Anesthesia Plan Resuscitation Status: Full Code Anesthesia Technique: General Anesthesia Airway Planned: Endotracheal Tube Monitors Used: Standard Monitors Preoperative Comments:: 68 yo male for lap ki. Sig PMHx: preDM, anxiety/depression. former smoker, daily EtOH/cannabis. Previous Anes - colo, prop, natural airway, no issues.
[2024-02-19] VITALS (14 sets, daily range): BP systolic 88–135; BP diastolic 58–82; PULSE 44–53; RESP 13–27; TEMP 36.3–36.5; O2SAT 93–99; BMI 25.7
[2024-02-19] MEDS: Gabapentin 300 MG CAP 600 MG PO (08:10)
[2024-02-19] MEDS: Acetaminophen 500 MG TAB 1000 MG PO (08:10)
[2024-02-19] MEDS: Lactated Ringers 1,000 ML 80 ML IV (08:27)
[2024-02-19] MEDS: Indocyanine green 25 MG VIAL 5 MG IVP (08:31)
[2024-02-19] MEDS: Normal Saline Flush 10 ML SYR IV (08:34)
[2024-02-19] MEDS: ceFAZolin 2 GM/50 ML BAG IVPB (09:56)
--- NOTE | 2024-02-19 10:40 | GB_PTH ---
PATIENT: Henry Javier LOC: [facility] U#:[id number] AGE/SX: 68/M ROOM: RE02/19/[address]: Aylin Martins : 1955 BED: DIS: 02/19/2024 SPEC #: [id number] RECD: 02/19/24 15:26 STATUS: JODY REQ #: [id number] MAGDA: 02/19/24 10:[address]: Aylin Martins DEPT: Surgical Specimen RECD BY: Isabel Rangel ENTERED: 02/19/24 15:27 SP TYPE: GB OTHR DR: America Caro Tissues: 1 - GALLBLADDER Procedures: GROSS AND MICRO LEVEL 3 Comments: [id number]
[2024-02-19] MEDS: Bupivacaine 0.25% Pres-Free W/EPI 30 ML VIAL (11:01)
--- NOTE | 2024-02-19 11:37 | W.ANESPOSTOP ---
Postoperative Evaluation Date, Time and Location Date Performed: 02/19/24 Time Performed: 11:37 Patient Location: PACU Vital Signs Most Recent Imported Vital Signs: Most Recent Vital Signs Temp Pulse Resp BP Pulse Ox 36.5 C 53 L 16 135/82 99 02/19/24 11:20 02/19/24 08:03 02/19/24 08:03 02/19/24 08:03 02/19/24 08:03 Pain Score Most Recent Pain Score: Most Recent Pain Score Pain Level 0 02/19/24 11:30 Assessment Mental Status: Arousable with meaningful communication Airway and Respiratory Function: Patent airway with normal (patient baseline) respiratory exam Cardiovascular Function: Hemodynamically Stable Hydration Status: Adequately Hydrated Nausea & Vomiting: No Nausea or Vomiting Pain: Pain is tolerable per patient Peripheral Nerve Block: Patient did not receive a nerve block
== END 2024-02-19 13:36 | disposition home or self-care (01) ==
PROVIDERS: PCP Family Medicine; Visit Provider Surgery
PROC: 0FT44ZZ Resection of Gallbladder, Percutaneous Endoscopic Approach (ICD-10-PCS; CPT 47562; principal; 2024-02-19 08:30)
DX: K82.8 Other specified diseases of gallbladder (principal); E78.2 Mixed hyperlipidemia
CPT/HCPCS: 47562; 88304; J0690; J1100; J1885; J2001; J2405; J2704; J3475

== ENCOUNTER → 2024-03-03 12:56 | Outpatient (BNVA) | payer MEDICARE, BC, SELFPAY | PROVIDERS: PCP Family Medicine; Referring Provider Family Medicine; Visit Provider Surgery | DX: Z48.815 Encounter for surgical aftercare following surgery on the digestive system (principal); Z90.49 Acquired absence of other specified parts of digestive tract ==

== ENCOUNTER 2024-03-28 15:52 | Emergency (ER) | payer MEDICARE, BC, SELFPAY ==
[2024-03-28] VITALS (100 sets, daily range): BP systolic 105–121; BP diastolic 69–84; PULSE 88–100; RESP 12–34; TEMP 37.2; O2SAT 94–100
--- NOTE | 2024-03-28 15:45 | RT.EKG_ITS ---
APPROVED REPORT Exam: Resting ECG Reason for Exam: chest pain Patient Location: E HR:98 bpm ECG Measurements Heart Rate 98 AXIS AR 146 P 64 QRSd 97 QRS -51 QT 340 T 66 QTc 436 Conclusion Sinus rhythm...normal P axis, V-rate 60- 99 Inferior infarct, acute...ST>0.10mV, T upright, II III aVF sinus rhythm, left axis, normal intervals, non ischemic
--- NOTE | 2024-03-28 16:15 | DI.CT_ITS ---
Exam(s) CT CHEST PE CTA EXAM: CT CHEST PE CTA CLINICAL HISTORY: pleuritic r sided chest pain recent cholecystectom. TECHNIQUE: Imaging Protocol: Axial CT angiography was performed with multi-slice acquisition and mu lti-planar and/or 3D reconstructions. CONTRAST MATERIAL: Intravenous: Omnipaque 350 contrast volume:65 mL COMPARISON: CR XR CHEST 2V PA LATERAL from 10/10/2023 FINDINGS: Tracheobronchial tree: Patent where visualized. No bronchiectasis. Pulmonary parenchyma: There are multiple pulmonary nodules measuring up to 1 cm in size. The finding s are suspicious for metastatic disease. Atelectasis or scarring is seen in the lung bases. No foca l consolidating infiltrates are seen. Pulmonary Arteries: No evidence of filling defect to suggest pulmonary emboli. Mediastinum and Graciela: There is a large amount of soft tissue seen in the anterior mediastinum measuri ng at least 6.8 x 4.6 cm (series 9, image 24). There is left hilar adenopathy measuring 2 x 1.7 cm ( series 9, image 25). Visualized thyroid gland: Unremarkable. Pleura: No effusion or pneumothorax. Heart: The heart is not dilated. No coronary artery calcifications are seen. There is a moderately la rge pericardial effusion measuring up to 2.3 cm. Aorta: Thoracic aorta non-dilated. Atherosclerotic calcification is seen. There is limited evaluatio n of the thoracic aorta due to the timing of the bolus. Upper abdomen: Status post cholecystectomy. Due to the technique evaluation of the liver is limited . Soft tissues: Unremarkable. Bones: Within normal limits for the patient's age.There is a sclerotic focus in the posterior aspect of the right 7th rib. IMPRESSION: 1. No evidence of pulmonary embolism or thoracic aortic aneurysm. 2. Multiple pulmonary nodules suspicious for metastatic disease. 3. Soft tissue in the anterior mediastinum and left hilum suspicious for thoracic adenopathy. Other causes of an anterior mediastinal mass including a thymic carcinoma should be considered. 4. Moderately large pericardial effusion measuring up to 2.3 cm. 5. Sclerotic focus in the posterior aspect of the right 7th rib. Metastasis should be considered. W hole-body bone scan should be obtained for further evaluation. 6. Findings were discussed with Dr. Cruz at 6:30 p.m. on 03/28/2024. RADIATION DOSE DELIVERED: 70.47mGy.cm Total DLP DATA REPOSITORY: All CT scans at this facility are submitted to the National Radiology Data Registry (NRDR) Dose Index Registry (DIR) with the [employer] ([employer]). RADIATION OPTIMIZATION: All CT scans at this facility use at least one of these dose optimization te chniques: automated exposure control; mA and/or kV adjustment per patient size (includes targeted exa ms where dose is matched to clinical indication); or iterative reconstruction.
--- NOTE | 2024-03-28 16:21 | W.ED.GENAD ---
Discharge Plan Disposition Patient Disposition: Home Condition: Stable Discharge Details Chief Complaint: Chest Pain Clinical Impression: Mediastinal mass, Multiple pulmonary nodules, Pericardial effusion Primary Care Provider: America Caro ED Provider: Lawrence Cruz Home Meds and New Rx's Prescriptions: No Action acetaminophen [Tylenol Extra Strength] 500 mg tablet 500 mg PO PRN PRN cholecalciferol (vitamin D3) [Vitamin D3] 125 mcg (5,000 unit) Tablet 10,000 mcg PO DAILY ibuprofen [Advil] 200 mg tablet 400 mg PO Q8H PRN Discharge Instructions Instructions: Multiple pulmonary nodules, Pericardial Effusion Additional Instructions: Please follow-up with your primary care physician early next week to discuss and plan further testing to determine the nature of your mediastinal mass and pulmonary nodules and pericardial effusion. I have also placed a referral to [facility] oncology team. If you are having any issues obtaining prompt follow-up please call or return to the emergency department. Please return to the emergency department for any worsening symptomatology. HPI General Date/Time Provider Initiated Documentation: 03/28/24 16:07. HPI Narrative: 68-year-old male previously diagnosed with GERD and cholecystitis cholecystectomy performed last month laparoscopically presents with pleuritic right-sided chest pain over the last couple of weeks worse with deep inhalation on the right side upper chest, nonradiating, no diaphoresis nausea vomiting fevers or chills, patient does endorse some night sweats. Had intentional weight loss after some period of prior dietary indiscretion and low physical activity. No leg swelling or pain, no history of thromboembolic disease or coronary disease Related Data Home Medications ?Medication ?Instructions ?Recorded ?Confirmed acetaminophen 500 mg tablet 500 mg PO PRN PRN 06/26/19 03/28/24 (Tylenol Extra Strength) cholecalciferol (vitamin D3) 125 10,000 mcg PO DAILY 07/21/19 03/28/24 mcg (5,000 unit) tablet (Vitamin D3) ibuprofen 200 mg tablet (Advil) 400 mg PO Q8H PRN 03/28/24 03/28/24 Allergies Allergy/AdvReac Type Severity Reaction Status Date / Time No Known Allergies Allergy Verified 03/28/24 16:01 General Stated Complaint: Chest Pain OTTONIEL: 3 Course Vital Signs Vital signs: Vital Signs Temperature 37.2 C 03/28/24 15:54 Pulse 100 H 03/28/24 15:54 Respiratory Rate 12 03/28/24 15:54 Blood Pressure 115/79 03/28/24 15:54 Pulse Oximetry 96 03/28/24 15:54 Temperature 37.2 C 03/28/24 15:54 Temperature Source Oral 03/28/24 15:54 Pulse 100 H 03/28/24 15:54 Respiratory Rate 12 03/28/24 15:54 Blood Pressure 115/79 03/28/24 15:54 Blood Pressure Position Sitting 03/28/24 15:54 Pulse Oximetry 96 03/28/24 15:54 Oxygen Delivery Method Room Air 03/28/24 15:54 Oxygen Flow Rate 0 03/28/24 15:54 Pain Level 6 03/28/24 15:54 Medical Decision Making 68-year-old male previously diagnosed with GERD and cholecystitis cholecystectomy performed last month laparoscopically presents with pleuritic right-sided chest pain over the last couple of weeks worse with deep inhalation on the right side upper chest, nonradiating, no diaphoresis nausea vomiting fevers or chills, patient does endorse some night sweats. Had intentional weight loss after some period of prior dietary indiscretion and low physical activity. No leg swelling or pain, no history of thromboembolic disease or coronary disease. Initial differential pleurisy ACS PE less likely pneumothorax less likely aortic pathology versus costochondritis versus infectious etiology. 18: 46 CT imaging negative for PE however concerning for malignant process with mediastinal mass pericardial effusion and multiple pulmonary nodules. Patient is medically stable no respiratory distress. No clinical evidence of tamponade. Counseled at length regarding imaging findings and possible differential. Patient to follow-up closely with his primary care physician early next week to arrange outpatient malignancy workup. I have also placed a referral to [facility] oncology team. Patient given home care instructions and strict return precautions Quality:SDOH Health Related Social Needs: No Data to Display PFSH All Active Problems (Updated 03/28/24 @ 18:49 by Lawrence Cruz MD) Pericardial effusion (Acute) Multiple pulmonary nodules (Acute) Mediastinal mass (Acute) Biliary dyskinesia (Acute) Elevated cholesterol with elevated triglycerides (Acute) Internal hemorrhoids without complication (Acute) Medical History History of prediabetes Arthritis Anxiety and depression Carpal tunnel syndrome, bilateral Tendonitis, Achilles, right Hemorrhoids History of cigarette smoking (~1977) Surgical History (Updated 02/20/24 @ 08:06 by Ximena Rodriguez) History of laparoscopic cholecystectomy (~02/2024) History of colonoscopy 06/2020 - negative exam History of tonsillectomy and adenoidectomy History of appendectomy Social History Smoking/Tobacco Use Status: Former Tobacco Use Quit Date: 07/16/77 Smoking risk assessment performed?: Yes Alcohol Intake: current Alcohol Intake frequency: 3 or more drinks per day Alcohol type: wine Drug use: Daily Substance use type: marijuana Details: 02/13/24 smoked pot Housing: house Do you feel safe at home: Yes Do you feel safe in your relationship?: Yes
[2024-03-28] MEDS: Aspirin 81 MG CHEW 324 MG CH (16:59)
[2024-03-28 17:01] LABS: Abs Immature Grans 0.04 10^3/uL (0.0-0.06); Absolute Basophil Count 0.02 10^3/uL (0.0-0.2); Absolute Lymphocyte Count 0.85 10^3/uL (1.2-3.4); Absolute Monocyte Count 0.72 10^3/uL (0.1-0.8); Basophils % 0.2 %; Immature Grans % 0.4 %; Lymphocytes % 7.5 %; MCH 27.5 pg (27.0-33.0); MCHC 32.5 % (32.0-36.0); MCV 85 fL (80-95); MPV 9.3 fL (8.0-11.0); Monocytes % 6.4 %; Neutrophils % 85.5 %; Platelet Count 492 10^3/uL (130-400); RBC 4.73 10^6/uL (4.36-5.78); RDW 14.4 % (11.8-14.1); RDW-SD 44.4 fL; WBC 11.28 10^3/uL (4.4-10.8)
[2024-03-28 17:02] LABS: Absolute Neutrophil Count 9.64 10^3/uL (1.2-6.7)
[2024-03-28 17:20] LABS: INR 1.2 (0.9-1.1); PTT Activated 31.2 sec (23.6-32.8); Prothrombin Time 11.5 sec (9.1-11.1)
[2024-03-28 17:24] LABS: ALT 54 U/L (16-63); AST 43 U/L (15-37); Albumin 3.2 g/dL (3.4-5.0); Alkaline Phosphatase 273 U/L (46-116); Anion Gap 7.1 mmol/L (3-11); BUN 26 mg/dL (7-18); Bilirubin, Total 0.69 mg/dL (0.2-1.0); CO2 26.9 mmol/L (21.0-32.0); Calcium 9.7 mg/dL (8.5-10.1); Chloride 98 mmol/L (98-107); Estimated GFR 80.97 (mL/min/1.73m2); Glucose 114 mg/dL (74-106); Lipase 41 U/L (16-77); Magnesium 2.3 mg/dL (1.8-2.4); NT-proBNP 357 pg/mL (<300); Potassium 4.5 mmol/L (3.5-5.1); Sodium 132 mmol/L (136-145); TSH (W/Ref FT4) 2.21 uIU/mL (0.36-3.74); Total Protein 8.3 g/dL (6.4-8.2); Troponin I 6 ng/L (<or=76)
[2024-03-28] MEDS: Omnipaque 350 MG/ML 100 ML BTL IJ (17:37)
[2024-03-28] MEDS: Normal Saline - Diluent 50 ML VIAL IJ (17:37)
[2024-03-28] MEDS: Ketorolac 15 MG/ML VIAL IVP (19:00)
[2024-03-28 19:02] LABS: Troponin I < 4 ng/L (<or=76)
== END 2024-03-28 20:29 | disposition home or self-care (01) ==
PROVIDERS: Emergency Provider Emergency Medicine; PCP Family Medicine
DX: D15.2 Benign neoplasm of mediastinum (principal); R91.8 Other nonspecific abnormal finding of lung field; I31.39 Other pericardial effusion (noninflammatory); Z87.891 Personal history of nicotine dependence
CPT/HCPCS: 36415; 71275; 80053; 83690; 93005; 96374; 99285; 83735; 83880; 84443; 84484; 85025; 85610; 85730; 93010; 99284; J1885; J3490

== ENCOUNTER 2024-04-02 02:29 | Outpatient (CLI) | payer MEDICARE, BC, SELFPAY | END 2024-04-02 02:49 | LOC: DI 02:29 | PROVIDERS: PCP Family Medicine; Visit Provider Family Medicine | DX: I31.39 Other pericardial effusion (noninflammatory) (principal) | CPT/HCPCS: 93306 ==

== ENCOUNTER 2024-05-09 11:45 | Outpatient (CLI) | payer MEDICARE, BC, SELFPAY ==
--- NOTE | 2024-05-09 | DI.CT_ITS ---
Exam(s) CT CHEST W EXAM: CT CHEST W CLINICAL HISTORY: C34.90 Nonsmall cell lung CA,unspecified laterality, New DX of mets lung CA TECHNIQUE: Imaging Protocol: Axial computed tomography images with coronal and sagittal reformatted images were created and reviewed. Computer aided detection (CAD) was utilized. CONTRAST MATERIAL: Intravenous: Omnipaque 350Contrast volume:70 mL. COMPARISON: CT CT CHEST PE CTA from 03/28/2024 FINDINGS: The examination is limited due to patient motion artifact. Tracheobronchial tree: Patent where visualized. No evidence of bronchiectasis. Pulmonary parenchyma: No focal consolidation. There are innumerable pulmonary nodules again seen. T here is a nodule in the medial aspect of the right upper lobe which has shown some increase in size m easuring 9.8 mm on the current examination (series 8, image 48) compared to 7 mm on the prior examina tion (series 11, image 40). No architectural distortion. Mediastinum and Graciela: The mass in the anterior mediastinum has shown interval increase in size. It m easures 8.1 transverse by 5.2 cm AP (series 8, image 61) compared to 6.8 x 4.6 cm on the prior examin ation. The esophagus is unremarkable. Thyroid gland: There is a small 3 mm nodule in the left lobe of the thyroid gland. No follow-up is r ecommended. Pleura: No effusion or pneumothorax. Heart: The heart is not dilated. Mild coronary artery calcification is present. There is a small per icardial effusion measuring up to 5 mm in thickness. Aorta: Thoracic aorta non-dilated. No evidence of dissection. Atherosclerotic calcification is prese nt. Pulmonary arteries: Due to the timing of the bolus, pulmonary artery opacification is suboptimal for evaluation of pulmonary emboli. No large central pulmonary embolism is present. Upper abdomen: Unremarkable. Lymph nodes: No axillary adenopathy. Bones: Within normal limits for the patient's age. No change in appearance of the bones compared to the prior examination. Soft tissues: Unremarkable. IMPRESSION: 1. Multiple pulmonary nodules consistent with metastatic disease. Interval increase in size of a rig ht upper lobe nodule since prior examination. 2. Interval increase in size of the anterior mediastinal mass. RADIATION DOSE DELIVERED: 116.13mGy.cm Total DLP DATA REPOSITORY: All CT scans at this facility are submitted to the National Radiology Data Registry (NRDR) Dose Index Registry (DIR) with the [employer] (ACR). RADIATION OPTIMIZATION: All CT scans at this facility use at least one of these dose optimization te chniques: automated exposure control; mA and/or kV adjustment per patient size (includes targeted exa ms where dose is matched to clinical indication); or iterative reconstruction.
[2024-05-09] MEDS: Omnipaque 350 MG/ML 100 ML BTL 70 ML IJ (14:30)
[2024-05-09] MEDS: Normal Saline - Diluent 50 ML VIAL IJ (14:30)
== END 2024-05-09 12:05 ==
PROVIDERS: PCP Family Medicine; Visit Provider Internal Medicine
DX: C34.91 Malignant neoplasm of unspecified part of right bronchus or lung (principal)
CPT/HCPCS: 71260; J3490

== ENCOUNTER 2024-05-23 01:05 | Outpatient (CLI) | payer MEDICARE, BC, SELFPAY ==
--- OUTSIDE RECORDS SUMMARY | 2024-05-23 01:22 | XMS_ITS | Encounter Summary ---
Author Organization [facility] Address [facility] [place] [address] Care Team Providers Care Car Carder Name Role Phone America Caro MD Primary Care Provider [phone] Reason for Visit * Treatment/Therapy Plan Authorization (Routine) - Authorized Specialty Diagnoses / Procedures Referred By Contac t Referred To Contact Hematology and Oncology Diagnoses Non-small cell lung cancer, unspecified laterality Medication management Procedures TC PALONOSETRON HCL, 25MCG, INJ (ALOXI) TC APREPITANT, 1 MG, INJ TC PEMBROLIZUMAB, 1 MG, INJ TC PACLITAXEL PROTEIN-BOUND PARTICLES, 1MG, INJ TC PACLITAXEL PROTEIN-BOUND PARTICLES (ANDORRAN REGENT), 1 MG, INJ TC CARBOPLATIN, 50MG, INJ (PARAPLATIN) Albania Chahal MD [facility] DR HEMATOLOGY/[place] [address] Alban[place] Chahal MD [facility] DR HEMATOLOGY/[place] [address] Referral ID Status Reason Start Date Expiration Date V isits Requested Visits Authorized [id number] Authorized 05/06/2024 05/06/2025 99 100 Encounter Details Date Type Department Care Team (Late st Contact Info) Description 05/23/2024 9:30 AM EST Infusion Hematology Oncology at [address] [phone] Social History Tobacco Use Types Packs/Day Years Used Date Smoking Tobacco: Former Pipe Passive Smoke Exposure: Past Smokeless Tobacco: Never Comments:Smoke pipe for 10 y ears since 13 years old, Does still smoke pot but is slowing down. Passive Exposure Comments:Second hand smoke since [id number] Alcohol Use Standard Drinks/Week Comments Yes 14 (1 standard drink = 0.6 oz pure alcohol) hardly any for the last month B1300 Health Literacy Answer Date Recor ded How often do you need to hav e someone help you when you read instructions, pamphlets, or other written material from your doctor or pharmacy? Never 05/04/2024 [facility] Utilities Answer Date Recorded In the past 12 months has th e electric, gas, oil, or water company threatened to shut off services in your home? No 05/04/2024 Overall Financial Resource Strain (CARDIA) Answe r Date Recorded How hard is it for you to pa y for the very basics like food, housing, medical care, and heating? Not hard at all 05/04/2024 Hunger Vital Sign Answer Date Recorded Within the past 12 months, y ou worried that your food would run out before you got the money to buy more. Never true 05/04/20 24 Within the past 12 months, t he food you bought just didn't last and you didn't have money to get more. Never true 05/04/2024 PRAPARE - Transportation Answer Date Re corded In the past 12 months, has l ack of transportation kept you from medical appointments or from getting medications? No 04/16 In the past 12 months, has l ack of transportation kept you from meetings, work, or from getting things needed for daily living? No 05/04/2024 Housing Stability Vital Sign Answer Aric e Recorded In the last 12 months, was t here a time when you were not able to pay the mortgage or rent on time? No 05/04/2024 In the past 12 months, how m any times have you moved where you were living? 0 05/04/2024 At any time in the past 12 m [facility], were you homeless or living in a assisted (including now)? No 05/04/2024 Sex and Gender Information Value Date Recorded Sex Assigned at Not on file Gender Identity Not on file Sexual Orientation Not on file documented as of this encounter Plan of Treatment Upcoming Encounters Date Type Department Care Team (Late st Contact Info) Description 05/30/2024 9:00 AM EST Infusion Hematology Oncology at [address] [phone] 06/05/2024 9:15 AM EST Laboratory Appointment Lab at [facility] Hematology Oncology [address] [place] [address] 06/05/2024 10:30 AM EST Office Visit Hematology [place] [phone] Albania Chahal MD [facility] HEMATOLOGY/[place] [address] 06/05/2024 1:00 PM EST Appointment Hematology [place] [phone] 06/26/2024 9:15 AM EST Laboratory Appointment Lab at [facility] Hematology Oncology [address] [place] [address] 06/26/2024 10:30 AM EST Office Visit Hematology [place] [phone] Albania Chahal MD [facility] HEMATOLOGY/[place] [address] 06/26/2024 12:00 PM EST Appointment Hematology [place] [address] 07/17/2024 9:30 AM EST Laboratory Appointment Lab at [facility] Hematology Oncology [address] [place] [phone] 07/17/2024 10:30 AM EST Office Visit Hematology [place] [phone] Albania Chahal MD [facility] DR [place] [address] 07/17/2024 12:00 PM EST Appointment Hematology [place] [address] documented as of this encounter Visit Diagnoses Not on filedocumented in this encounter Care Teams Car Carder Relationship Specialty Start Date End Date America Caro MD [address] [place] [address] PCP - General Family Medicine 03/31/24 documented as of this encounter
--- OUTSIDE RECORDS SUMMARY | 2024-05-23 01:22 | XMS_ITS | Encounter Summary ---
Author Organization [facility] Address [facility] [place] [address] Care Team Providers Care Truck Chauffeur Name Role Phone America Caro MD Primary Care Provider [phone] Encounter Details Date Type Department Care Team (Latest Contact Info) Description 05/09/2024 Travel Social History Tobacco Use Types Packs/Day Years Used Date Smoking Tobacco: Former Pipe Passive Smoke Exposure: Past Smokeless Tobacco: Never Comments:Smoke pipe for 10 y ears since 13 years old, Does still smoke pot but is slowing down. Passive Exposure Comments:Second hand smoke since 5296-1023 Alcohol Use Standard Drinks/Week Comments Yes 14 (1 standard drink = 0.6 oz pure alcohol) hardly any for the last month B1300 Health Literacy Answer Date Recor ded How often do you need to hav e someone help you when you read instructions, pamphlets, or other written material from your doctor or pharmacy? Never 05/04/2024 [facility] Utilities Answer Date Recorded In the past 12 months has [employer], gas, oil, or water [employer] threatened to shut off services in your [...] any time in the past 12 m [facility], were you homeless or living in a assisted (including now)? No 05/04/2024 Sex and Gender Information Value Date Recorded Sex Assigned at Not on file Gender Identity Not on file Sexual Orientation Not on file documented as of this encounter Plan of Treatment Upcoming Encounters Date Type Department Care Team (Late st Contact Info) Description 05/23/2024 9:30 AM EST Infusion Hematology Oncology at [address] [phone] 05/30/2024 9:00 AM EST Infusion Hematology Oncology at [address] [address] 06/05/2024 9:15 AM EST Laboratory Appointment Lab at [facility] [place] On[place] [address] [place] [address] 06/05/2024 10:30 AM EST Office Visit Hematology [place] [address] Albania Chahal MD [facility] HEMATOLOGY/[place] [address] 06/05/2024 1:00 PM EST Appointment Hematology [place] [address] 06/26/2024 9:15 AM EST Laboratory Appointment Lab at [facility] Hematology Oncology [address] [place] [address] 06/26/2024 10:30 AM EST Office Visit Hematology [place] [address] Albania Chahal MD [facility] HEMATOLOGY[place] [address] 06/26/2024 12:00 PM EST Appointment Hematology [place] [address] 07/17/2024 9:30 AM EST Laboratory Appointment Lab at [facility] Hematology Oncology [address] [place] [address] 07/17/2024 10:30 AM EST Office Visit Hematology [place] [address] Albania Chahal MD [facility] HEMATOLOGY[place] [address] 07/17/2024 12:00 PM EST Appointment Hematology [place] [address] documented as of this encounter Visit Diagnoses Not on filedocumented in this encounter Care Teams Truck Chauffeur Relationship Specialty Start Date End Date America Caro MD [address] [place] [address] PCP - General Family Medicine 03/31/24 documented as of this encounter
--- OUTSIDE RECORDS SUMMARY | 2024-05-23 01:22 | XMS_ITS | Encounter Summary ---
[place] [address] Care Team Providers Care Animal Trapper Name Role Phone America Caro MD Primary Care Provider [phone] Encounter Details Date Type Department Care Team (Latest Contact Info) Description 05/15/2024 8:15 AM EDT Laboratory Appointment Lab at [facility] [place] [address] [place] [phone] Non-small cell lung cancer, unspecified laterality; Medication management Social History Tobacco Use Types Packs/Day Years Used Date Smoking Tobacco: Former Pipe Passive Smoke Exposure: Past Smokeless Tobacco: Never Comments:Smoke pipe for 10 y ears since 13 years old, Does still smoke pot but is slowing down. Passive Exposure Comments:Second hand smoke since 1049-1622 Alcohol Use Standard Drinks/Week Comments Yes 14 (1 standard drink = 0.6 oz pure alcohol) hardly any for the last month B1300 Health Literacy Answer Date Recor ded How often do you need to hav e someone help you when you read instructions, pamphlets, or other written material from your doctor or pharmacy? Never 05/04/2024 [facility] Utilities Answer Date Recorded In the past 12 months has e electric, gas, oil, or water company [...] No 05/04/2024 Housing Stability Vital Sign Answer Raic e Recorded In the last 12 months, was t here a time when you were not able to pay the mortgage or rent on time? No 05/04/2024 In the past 12 months, how m any times have you moved where you were living? 0 05/04/2024 At any time in the past 12 m onths, were you homeless or living in a mcc (including now)? No 05/04/2024 Sex and Gender Information Value Date Recorded Sex Assigned at Not on file Gender Identity Not on file Sexual Orientation Not on file documented as of this encounter Plan of Treatment Upcoming Encounters Date Type Department Care Team (Late st Contact Info) Description 05/23/2024 9:30 AM EST Infusion Hematology Oncology at [address] [phone] 05/30/2024 9:00 AM EST Infusion Hematology Oncology at [address] [address] 06/05/2024 9:15 AM EST Laboratory Appointment Lab at [facility] [place] [address] [place] [phone] 06/05/2024 10:30 AM EST Office Visit Hematology [place] [address] Albania Chahal MD [facility] HEMATOLOGY/[place] [address] 06/05/2024 1:00 PM EST Appointment Hematology [place] [address] 06/26/2024 9:15 AM EST Laboratory Appointment Lab at [facility] [place] [address] [place] [address] 06/26/2024 10:30 AM EST Office Visit Hematology [place] [address] Albania Chahal MD [facility] HEMATOLOGY/[place] [address] 06/26/2024 12:00 PM EST Appointment Hematology [place] [address] 07/17/2024 9:30 AM EST Laboratory Appointment Lab at [facility] [place] [place] [address] [place] [address] 07/17/2024 10:30 AM EST Office Visit Hematology [place] [address] Albania Chahal MD [facility] HEMATOLOGY/[place] [address] 07/17/2024 12:00 PM EST Appointment Hematology [place] [address] Pending Results Name Type Priority Associated Diagnoses Date /Time Miscellaneous Lab request Lab Routine Non-small cell lung cancer, unspecified laterality 05/15/2024 8:03 AM EDT documented as of this encounter Procedures Procedure Name Priority Date/Time Associated Diagnosis Comments CBC (WITH DIFF) STAT 05/15/2024 8:03 AM EDT Non-small cell lung cancer, unspecified laterality TSH STAT 05/15/2024 8:03 AM EDT Non-small cell lung cancer, unspecified laterality Medication management T4, FREE STAT 05/15/2024 8:03 AM EDT Non-small cell lung cancer, unspecified laterality Medication management LACTATE DEHYDROGENASE STAT 05/15/2024 8:03 AM EDT Non-small cell lung cancer, unspecified laterality COMPREHENSIVE METABOLIC PANEL STAT 05/15/2024 8:03 AM EDT Non-small cell lung cancer, unspecified laterality documented in this encounter Results * (ABNORMAL) CBC (with Diff) (05/15/2024 8:03 AM EDT) Pathologist [facility] White Blood Cell 7.22 4.00 - 9.50 x10(3)/mc L 05/15/2024 8:19 AM [facility] Red Blood Cell 4.73 4.58 - 5.54 x10(6)/mc L 05/15/2024 8:19 AM [facility] Hemoglobin 12.0(L) 13.7 - 16.5 g/dL 05/15/2024 8:19 AM [facility] Hematocrit 38.4(L) 40.5 - 48.5 % 05/15/2024 8:19 AM [facility] Mean Cell Volume 81.2(L) 82.9 - 93.1 fL 05/15/2024 8:19 AM [facility] Mean Cell Hemoglobin 25.4(L) 27.5 - 32.1 pg 05/15/2024 8:19 AM [facility] Mean Cell Hemoglobin Concentration 31.3(L) 32.0 - 35.7 g/dL 05/15/2024 8:19 AM [facility] Platelet 628(H) 145 - 357 x10(3)/mc L 05/15/2024 8:19 AM [facility] Mean Platelet Volume 8.5 7.6 - 12.9 fL 05/15/2024 8:19 AM [facility] RDW Standard Deviation 47.0(H) 36.0 - 45.0 fL 05/15/2024 8:19 AM [facility] RDW coefficient of variation 15.9(H) 11.4 - 13.8 % 05/15/2024 8:19 AM [facility] NRBC% auto 0.0 % 05/15/2024 8:19 AM [facility] NRBC Absolute <0.01 <0.01 x10(3)/mc L 05/15/2024 8:19 AM [facility] Neutrophil % 75.6 % 05/15/2024 8:19 AM [facility] Neutrophil Absolute (ANC) - Automated 5.46 1.70 - 6.10 x10(3)/mc L 05/15/2024 8:19 AM [facility] Lymph % 15.4 % 05/15/2024 8:19 AM [facility] Lymph Absolute 1.11 0.90 - 3.20 x10(3)/mc L 05/15/2024 8:19 AM [facility] Monocyte % 7.6 % 05/15/2024 8:19 AM [facility] Monocyte Absolute 0.55 0.30 - 0.90 x10(3)/mc L 05/15/2024 8:19 AM [facility] Eos % 0.7 % 05/15/2024 8:19 AM [facility] Eos Absolute 0.05 0.00 - 0.40 x10(3)/mc L 05/15/2024 8:19 AM [facility] Basophil % 0.3 % 05/15/2024 8:19 AM [facility] Baso Absolute <0.04 0.00 - 0.10 x10(3)/mc L 05/15/2024 8:19 AM [facility] Immature Gran % 0.4 % 8:19 AM [facility] Immature Gran Absolute <0.04 0.00 - 0.04 x10(3)/mc L 05/15/2024 8:19 AM EDT [facility] Blood VENOUS BLOOD SPECIMEN / Unknown Venipuncture / Unknown 05/15/2024 8:03 AM EDT 05/15/2024 8:03 AM EDT Albania Schumacher Maicol Dutton MD HEMATOLOGY ORDER [facility] [place] [address] * (ABNORMAL) Comprehensive metabolic panel Non-fasting (05/15/2024 8:03 AM EDT) Glucose 84 65 - 199 mg/dL 05/15/2024 8:52 AM [facility] Comment:Glucose Concentratio n >=200 mg/dL plus symptoms is consistent with Diabetes Mellitus. Blood Urea Nitrogen 17 10 - 20 mg/dL 05/15/2024 8:52 AM T [facility] Creatinine 0.83 0.80 - 1.50 mg/dL 05/15/2024 8:52 AM [facility] Sodium 137 135 - 145 mMol/L 05/15/2024 8:52 AM [facility] Potassium 4.6 3.5 - 5.0 mMol/L 05/15/2024 8:52 AM [facility] Chloride 100 98 - 107 mMol/L 05/15/2024 8:52 [facility] Carbon Dioxide 30 22 - 31 mMol/L 05/15/2024 8:52 AM [facility] Anion Gap 7 5 - 15 mMol/L 05/15/2024 8:52 AM [facility] Calcium 9.9 8.5 - 10.5 mg/dL 05/15/2024 8:52 [facility] Protein, Total 7.9 6.1 - 8.0 g/dL 05/15/2024 8:52 AM [facility] Albumin 3.6 3.2 - 5.2 g/dL 05/15/2024 8:52 AM EDT [facility] Aspartate Aminotransferase 41(H) <=39 unit/L 05/15/2024 8:52 AM EDT [facility] Alanine Aminotransferase 54 0 - 55 unit/L 05/15/2024 8:52 AM EDT [facility] Alkaline Phosphatase 225(H) 40 - 130 unit/L 05/15/2024 8:52 AM EDT [facility] Bilirubin, Total 0.3 <=1.3 mg/dL 05/15/2024 8:52 AM T [facility] Est Glomerular Filtration Rate - Male 94 mL/min/1. 73 m?? 05/15/2024 8:52 AM T [facility] Comment: This patient's estimated GFR was calculated using the 2020 CKD-EPI equation. The estimated GFR can vary from the measured GFR by up to 30% in the absence of rapidly changing kidney function. Assessment of the estimated GFR is not appropriate when creatinine concentrations are rapidly changing. For clinical situations in which a more precise estimate of GFR is necessary, consider alternative methods of GFR estimation such as a 24-hour urine creatinine clearance. Assignment of CKD stage 1 - 5 for patients with an eGFR near the transition point between stages may be based on clinical assessment of muscle mass and symptoms in addition to eGFR. Link: eGFR Calculator [employer] Fasting Status No 05/15/2024 8:52 AM T [facility] Blood VENOUS BLOOD SPECIMEN / Unknown Venipuncture / Unknown 05/15/2024 8:03 AM EDT 05/15/2024 8:03 AM EDT Albania Dutton MD CHEMISTRY ORDERA BLES [facility] [place] [address] * (ABNORMAL) Lactate Dehydrogenase (05/15/2024 8:03 AM EDT) Lactate Dehydrogenase 270(H) 110 - 220 unit/L 05/15/2024 8:52 AM EDT [facility] Blood VENOUS BLOOD SPECIMEN / Unknown Venipuncture / Unknown 05/15/2024 8:03 AM EDT 05/15/2024 8:03 AM EDT Narrative Authorizing Provider Result Levi Dutton MD CHEMISTRY ORDERA BLES Performing Organization Address [facility]/ZIP Co de Phone Number [facility] [place] [address] * (ABNORMAL) TSH (05/15/2024 8:03 AM EDT) Thyroid Stimulating Hormone 6.83(H) 0.27 - 4.20 mcIU/mL 05/15/2024 8:52 AM EDT [facility] Blood VENOUS BLOOD SPECIMEN / Unknown Venipuncture / Unknown 05/15/2024 8:03 AM EDT 05/15/2024 8:03 AM EDT Albania Dutton MD CHEMISTRY ORDERA BLES Performing Organization Address [facility]/ZIP Co de Phone Number [facility] [place] [address] * T4, free (05/15/2024 8:03 AM EDT) Free T4 1.08 0.93 - 1.70 ng/dL 05/15/2024 8:52 AM EDT [facility] Blood VENOUS BLOOD SPECIMEN / Unknown Venipuncture / Unknown 05/15/2024 8:03 AM EDT 05/15/2024 8:03 AM EDT Narrative Authorizing Provider Result Levi Dutton MD CHEMISTRY ORDERA BLES Performing Organization Address City/[facility]/ZIP Co de Phone Number [facility] [place] [address] documented in this encounter Visit Diagnoses Diagnosis Non-small cell lung cancer, unspecified laterality Medication management Encounter for long-term (current) use of other medications documented in this encounter Care Teams Animal Trapper Relationship Specialty Start Date End Date America Caro MD [address] [place] [address] PCP - General Family Medicine 03/31/24 documented as of this encounter
--- OUTSIDE RECORDS SUMMARY | 2024-05-23 01:22 | XMS_ITS | Clinical Summary ---
Author Organization [facility] [place] [address] Care Team Providers Care Motor And Controls Tester Name Role Phone America Rosenberg MD Primary Care Provider [phone] Allergies No known active allergies Medications Medication Sig Dispensed Refills Start Date End Date Status cholecalciferol, Vitamin D3, 25 mcg (1,000 unit) Capsule take 1 capsule po qd. 03/28/2018 Active colchicine (Colcrys) 0.6 mg tablet Take 1 tablet by mouth Daily at Noon. 04/10/2024 Active ibuprofen (Advil) 200 mg tablet Take 200 mg by mouth every 6 hours as needed for Pain. Active acetaminophen (Tylenol) 325 mg tablet Take 650 mg by mouth every 4 hours as needed for Pain. Active furosemide (Lasix) 20 mg tablet Take 20 mg by mouth daily. 04/17/2024 Active prochlorperazine (Compazine) 10 mg tablet Take 1 tablet by mouth every 6 hours as needed for Nausea. 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 Cancer Staging:Clinical:Stage IVB(cN3, cM1c) - Signed by Albania Chahal MD on 05/06/2024 Medication management 05/06/2024 Encounters Date Type Department Care Team Description 05/23/2024 9:30 AM EST Infusion Hematology Oncology at [address] [phone] 05/20/2024 Orders Only [place] [address] Albania Chahal MD Non-small cell cancer of left lung 05/19/2024 Telephone Hematology and Oncology at [place] [phone] Tia Becerra RN 05/16/2024 Travel 05/15/2024 10:00 AM EDT Clinical Support Hematology and Oncology at [place] [phone] [facility] Non-small cell lung cancer, unspecified laterality 05/15/2024 9:00 AM EDT Office Visit Hematology and Oncology at [place] [phone] Albania Chahal MD Non-small cell cancer of right lung 05/15/2024 8:15 AM EDT Laboratory Appointment Lab at [facility] Hematology Oncology [address] [place] [address] Non-small cell lung cancer, unspecified laterality; Medication management 05/15/2024 7:47 AM EDT - 05/15/2024 11:59 PM EDT Hospital Encounter Hematology and Oncology at [place] [phone] Non-small cell lung cancer, unspecified laterality; Medication management Discharge Disposition: Home 05/15/2024 Orders Only [place] [address] Albania Chahal MD Non-small cell lung cancer, unspecified laterality 05/15/2024 Notes Only [place] [address] Fletcher Alvarado, ANALI 05/15/2024 Travel 05/12/2024 Orders Only Hematology and Oncology at [place] [phone] Albania Chahal MD Non-small cell cancer of left lung 05/12/2024 Notes Only [place] [phone] Albania Chahal MD 05/09/2024 4:10 PM EDT Ancillary Procedure Radiology Library at [facility] [address] [place] [phone] America Rosenberg MD 05/09/2024 Orders Only Hematology and Oncology at [place] [address] Albania Chahal MD Non-small cell lung cancer, unspecified laterality 05/09/2024 [place] [address] Anna Reed 05/09/2024 Patient Outreach Hematology and Oncology at [address] Filemon Millan, ANALI 05/09/2024 Notes Only Hematology and Oncology at [place] [phone] Filemon Millan RN 05/09/2024 Travel 05/07/2024 7:41 AM EDT - 05/07/2024 11:59 PM EDT [place] [address] Andrea Freeman MD NSCLC of left lung Discharge Disposition: Home 05/06/2024 1:00 PM EDT Office Visit Hematology and Oncology at [place] [phone] Albania Chahal MD Non-small cell lung cancer, unspecified laterality 05/06/2024 12:00 PM EDT Laboratory Appointment Lab at [facility] Hematology Oncology [address] [place] [address] Non-small cell lung cancer, unspecified laterality 05/06/2024 Patient Outreach Hematology and Oncology at [place] [phone] Filemon Millan, ANALI Establish Care 05/06/2024 Notes Only [place]ology [place]cology [place] [phone] Olga Ceballos, ANALI 05/06/2024 Travel 05/04/2024 Travel 05/01/2024 Telephone Pulmonology at [place] [phone] Andrea Freeman MD 04/24/2024 7:37 AM EDT Anesthesia Event Gastroenterology at [place] [phone] Radha Arshad MD 04/24/2024 7:30 AM EDT - 04/24/2024 8:40 AM EDT Surgery Gastroenterology at [place] [phone] Andrea Freeman MD BRONCH, W ENDOBRONCHIAL ULTRASOUND (EBUS) GUIDED SAMPLING, 3+ NODES (WRVU 4.96) 04/24/2024 6:27 AM EDT - 04/24/2024 9:32 AM EDT Hospital Encounter Gastroenterology at [place] [phone] Andrea Freeman MD Discharge Disposition: Home 04/23/2024 Telephone Pulmonology at [place] [phone] Roseanna Rutledge RN Other (Bronchoscopy instructions) 04/22/2024 [place] [address] Kaela Zayas 04/21/2024 [place] [address] Andrea Freeman MD 04/16/2024 2:40 PM EDT Laboratory Appointment Lab [address] [place] [address] Pleural effusion, bilateral 04/16/2024 12:45 PM EDT - 04/16/2024 11:59 PM EDT Hospital Encounter XRay at [address] [place] [address] Seven Saha MD Pleural effusion, bilateral Discharge Disposition: Home 04/16/2024 10:40 AM EDT Office Visit Pulmonology at [place] [phone] Andrea Freeman MD Pleural effusion, bilateral (Primary Dx); Laboratory procedure 04/16/2024 Travel 04/15/2024 Transcribe Orders eDH Incoming Referrals [phone] America Rosenberg MD Malignant neoplasm of bronchus and lung 04/15/2024 [place] [address] Kaela Zayas 04/14/2024 Transcribe Orders eDH Incoming Referrals [phone] Aemrica Rosenberg MD Other nonspecific abnormal finding of lung field 04/11/2024 9:33 AM EDT - 04/11/2024 11:59 PM EDT Hospital Encounter [place] [phone] America Rosenberg MD Discharge Disposition: Home 04/11/2024 9:33 AM EDT - 04/11/2024 11:59 PM EDT Hospital Encounter [place] [phone] America Rosenberg MD Multiple nodules of lung Discharge Disposition: Home 04/11/2024 Travel 04/09/2024 Travel 04/07/2024 Transcribe Orders eDH Incoming Referrals [phone] America Rosenberg MD Pericardial effusion 04/04/2024 Telephone [place] [phone] Regina Alves 04/02/2024 8:53 AM EDT - 04/02/2024 11:59 PM EDT Hospital Encounter [place] [phone] America Rosenberg MD Pericardial effusion Discharge Disposition: Home 03/31/2024 Transcribe Orders eDH Incoming Referrals [phone] Lawrence Cruz MD Mass of mediastinum 03/28/2024 Ancillary Procedure Radiology Library [place] [facility] [place] [phone] America Rosenberg MD from Last 3 Months Social History Tobacco Use Types Packs/Day Years Used Date Smoking Tobacco: Former Pipe Passive Smoke Exposure: Past Smokeless Tobacco: Never Tobacco Cessation:Counseling Given: Not Answered Comments:Smoke pipe for 10 years since 13 years old, Does still smoke pot but is slowing down. Passive Exposure Comments:Second hand smoke since 9458-1433 Alcohol Use Standard Drinks/Week Comments Yes 14 (1 standard drink = 0.6 oz pure alcohol) hardly any for the last month B1300 Health Literacy Answer Date Recor ded How often do you need to hav e someone help you when you read instructions, pamphlets, or other written material from your doctor or pharmacy? Never 05/04/2024 [facility] Utilities Answer Date Recorded In the past 12 months has th e [employer], gas, oil, or water [employer] threatened to shut off services in your [...] any time in the past 12 m [facility], were you homeless or living in a care home (including now)? No 05/04/2024 Sex and Gender Information Value Date Recorded Sex Assigned at Not on file Gender Identity Not on file Sexual Orientation Not on file Last Filed Vital Signs Vital Sign Reading Time Taken Comments Blood Pressure 119/77 05/15/2024 9:08 AM EDT Pulse 67 05/15/2024 9:08 AM EDT Temperature 36.6 ??C (97.9 ??F) 05/15/2024 9:08 AM ED T Respiratory Rate 17 05/15/2024 9:08 AM EDT Oxygen Saturation 98% 05/15/2024 9:08 AM EDT Inhaled Oxygen Concentration - - Weight 61.7 kg (136 lb 0.4 oz) 05/15/2024 9:08 A M EDT Height 161.6 cm (5' 3.62) 05/15/2024 9:08 AM ED T Body Mass Index 23.63 05/15/2024 9:08 AM EDT Plan of Treatment Upcoming Encounters Date Type Department Care Team (Late st Contact Info) Description 05/23/2024 9:30 AM EST Infusion Hematology Oncology at [address] [phone] 05/30/2024 9:00 AM EST Infusion Hematology Oncology at [address] [phone] 06/05/2024 9:15 AM EST Laboratory Appointment Lab at [facility] Hematology Oncology [address] [place] [address] 06/05/2024 10:30 AM EST Office Visit [place] [address] Albania Chahal MD [facility] HEMATOLOGY/[place] [address] 06/05/2024 1:00 PM EST Appointment [place]ology [place] [address] 06/26/2024 9:15 AM EST Laboratory Appointment Lab at [facility] Hematology Oncology [address] [place] [address] 06/26/2024 10:30 AM EST Office Visit [place] [address] Albania Chahal MD [facility] HEMATOLOGY/[place] [address] 06/26/2024 12:00 PM EST Appointment [place] [address] 07/17/2024 9:30 AM EST Laboratory Appointment Lab at [facility] Hematology Oncology [address] [place] [address] 07/17/2024 10:30 AM EST Office Visit [place] [address] Albania Chahal MD [facility] HEMATOLOGY/[place] [address] 07/17/2024 12:00 PM EST Appointment [place] [address] Health Maintenance Due Date Last Done Comments CT Colonography 1953 Colonoscopy 1953 Colorectal Cancer Screening 1955 FIT DNA 1953 FIT 1953 Sigmoidoscopy (10 year) with FIT yearly 1953 Sigmoidoscopy 1953 Hepatitis C Screening 11/23/1971 Lipid Screening 11/23/1971 Tetanus/Diphtheria/Pertussis Vaccines (1 - Tdap) 1972 Zoster vaccine (1 of 2) 11/23/2003 Advance Directive 2008 AAA Screen 2018 Pneumoccocal Vaccine: 65+ (1 of 1 - PCV) 2018 Covid-19 Vaccine (2023-2 5 season) 2024 Influenza (Flu) vaccine (1 o f 1 - Influenza standard series) 03/16/2024 Diabetes Screening (HgbA1C o r Glucose) Discontinued 05/15/2024, 05/06/2024, 04/16/2024 Procedures Procedure Name Priority Date/Time Associated Diagnosis Comments CBC (WITH DIFF) STAT 05/15/2024 8:03 AM EDT Non-small cell lung cancer, unspecified laterality COMPREHENSIVE METABOLIC PANEL STAT 05/15/2024 8:03 AM EDT Non-small cell lung cancer, unspecified laterality LACTATE DEHYDROGENASE STAT 05/15/2024 8:03 AM EDT Non-small cell lung cancer, unspecified laterality TSH STAT 05/15/2024 8:03 AM EDT Non-small cell lung cancer, unspecified laterality Medication management T4, FREE STAT 05/15/2024 8:03 AM EDT Non-small cell lung cancer, unspecified laterality Medication management FILM LIBRARY STORAGE ONLY CT CHEST Routine 05/09/2024 4:08 PM EDT MRI BRAIN WWO CONTRAST (GENERIC) Routine 05/07/2024 9:14 AM EDT NSCLC of left lung LACTATE DEHYDROGENASE Routine 05/06/2024 12:15 PM EDT Non-small cell lung cancer, unspecified laterality COMPREHENSIVE METABOLIC PANEL Routine 05/06/2024 12:15 PM EDT Non-small cell lung cancer, unspecified laterality CBC (WITH DIFF) Routine 05/06/2024 12:15 PM EDT Non-small cell lung cancer, unspecified laterality CYTOLOGY FNA OTHER THAN THYROID Routine 04/24/2024 8:22 AM EDT CYTOLOGY FNA OTHER THAN THYROID Routine 04/24/2024 8:22 AM EDT CYTOLOGY FNA OTHER THAN THYROID Routine 04/24/2024 8:22 AM EDT CYTOLOGY FNA OTHER THAN THYROID Routine 04/24/2024 8:22 AM EDT CYTOLOGY FNA Routine 04/24/2024 8:22 AM EDT CYTOLOGY FNA Routine 04/24/2024 8:22 AM EDT CYTOLOGY FNA Routine 04/24/2024 8:22 AM EDT CYTOLOGY FNA Routine 04/24/2024 8:22 AM EDT IMMUNOPHENOTYPING FLOW CYTOMETRY (NON-BLOOD) Routine 04/24/2024 8:22 AM EDT [facility] Ebus Guided Sampl 3/> Node Station/Strux ([id number]) 04/24/2024 7:37 AM EDT Lymphadenopathy XR CHEST PA AND LATERAL Routine 04/16/20 1:08 PM EDT Pleural effusion, bilateral COMPREHENSIVE METABOLIC PANEL Routine 04/16/2024 12:47 PM EDT Pleural effusion, bilateral LACTATE DEHYDROGENASE Routine 04/16/2024 12:47 PM EDT Pleural effusion, bilateral CBC (WITH DIFF) Routine 04/16/2024 12:47 PM EDT Pleural effusion, bilateral PATHOLOGY FLUID REVIEW Routine 11:45 AM EDT Pleural effusion, bilateral LACTATE DEHYDROGENASE BODY FLUID Routine 04/16/2024 11:45 AM EDT Laboratory procedure GLUCOSE LEVEL BODY FLUID Routine 11:45 AM EDT Pleural effusion, bilateral IMMUNOPHENOTYPING FLOW CYTOMETRY (NON-BLOOD) Routine 04/16/2024 11:45 AM EDT Pleural effusion, bilateral ALBUMIN LEVEL BODY FLUID Routine 10/02/2 024 11:45 AM EDT Pleural effusion, bilateral PROTEIN LEVEL BODY FLUID Routine 024 11:45 AM EDT Pleural effusion, bilateral CELL COUNT PULMONARY FLUID ([facility]) Routine 04/16/2024 11:45 AM EDT Pleural effusion, bilateral BODY FLUID CULTURE, AEROBIC Routine 04/16/2024 11:45 AM EDT Pleural effusion, bilateral CYTOLOGY NON-BOARDING HOUSE COOK Routine 04/16/2024 10:5 2 AM EDT Pleural effusion, bilateral NM PET CT SKULL BASE TO MID-THIGH ([facility]) Routine 04/11/2024 11:00 AM EDT Multiple nodules of lung POC, GLUCOSE Routine 04/11/2024 9:43 AM EDT ORDS - PROVIDER CARE SCAN 2023 12:00 AM EDT ECHO COMPLETE Routine 04/02/2024 9:55 AM EDT Pericardial effusion ORDS - PROVIDER CARE SCAN 2023 12:00 AM EDT ECHO SCAN (SCAN) 04/02/2024 12:0 0 AM EDT FILM LIBRARY STORAGE ONLY CT CHEST Routine 03/28/2024 12:00 AM EDT from Last 3 Months Results * (ABNORMAL) CBC (with Diff) (05/15/2024 8:03 AM EDT) Only the most recent of3 resultswithin the time period is included. White Blood Cell 7.22 4.00 - 9.50 x10(3)/mc L 05/15/2024 8:19 AM EDT [facility] Red Blood Cell 4.73 4.58 - 5.54 x10(6)/mc L 05/15/2024 8:19 AM [facility] Hemoglobin 12.0(L) 13.7 - 16.5 g/dL 05/15/2024 8:19 AM [facility] Hematocrit 38.4(L) 40.5 - 48.5 % 05/15/2024 8:19 AM [facility] Mean Cell Volume 81.2(L) 82.9 - 93.1 fL 05/15/2024 8:19 AM [facility] Mean Cell Hemoglobin 25.4(L) 27.5 - 32.1 pg 05/15/2024 8:19 AM [facility] Mean Cell Hemoglobin Concentration 31.3(L) 32.0 - 35.7 g/dL 05/15/2024 8:19 AM [facility] Platelet 628(H) 145 - 357 x10(3)/mc L 05/15/2024 8:19 AM [facility] Mean Platelet Volume 8.5 7.6 - 12.9 fL 05/15/2024 8:19 AM [facility] RDW Standard Deviation 47.0(H) 36.0 - 45.0 fL 05/15/2024 8:19 AM [facility] RDW coefficient of variation 15.9(H) 11.4 - 13.8 % 05/15/2024 8:19 AM [facility] NRBC% auto 0.0 % 05/15/2024 8:19 AM [facility] NRBC Absolute <0.01 <0.01 x10(3)/mc L 05/15/2024 8:19 AM [facility] Neutrophil % 75.6 % 05/15/2024 8:19 AM [facility] Neutrophil Absolute (ANC) - Automated 5.46 1.70 - 6.10 x10(3)/mc L 05/15/2024 8:19 AM [facility] Lymph % 15.4 % 05/15/2024 8:19 AM EDT [facility] Lymph Absolute 1.11 0.90 - 3.20 x10(3)/mc L 05/15/2024 8:19 AM EDT [facility] Monocyte % 7.6 % 05/15/2024 8:19 AM EDT [facility] Monocyte Absolute 0.55 0.30 - 0.90 x10(3)/mc L 05/15/2024 8:19 AM EDT [facility] Eos % 0.7 % 05/15/2024 8:19 AM EDT [facility] Eos Absolute 0.05 0.00 - 0.40 x10(3)/mc L 05/15/2024 8:19 AM EDT [facility] Basophil % 0.3 % 05/15/2024 8:19 AM EDT [facility] Baso Absolute <0.04 0.00 - 0.10 x10(3)/mc L 05/15/2024 8:19 AM EDT [facility] Immature Gran % 0.4 % 8:19 AM EDT [facility] Immature Gran Absolute <0.04 0.00 - 0.04 x10(3)/mc L 05/15/2024 8:19 AM EDT [facility] Blood VENOUS BLOOD SPECIMEN / Unknown Venipuncture / Unknown 05/15/2024 8:03 AM EDT 05/15/2024 8:03 AM EDT Albania Dutton MD HEMATOLOGY ORDER [place]BER[place] [facility] [address] * (ABNORMAL) TSH (05/15/2024 8:03 AM EDT) Thyroid Stimulating Hormone 6.83(H) 0.27 - 4.20 mcIU/mL 05/15/2024 8:52 AM EDT [facility] Blood VENOUS BLOOD SPECIMEN / Unknown Venipuncture / Unknown 05/15/2024 8:03 AM EDT 05/15/2024 8:03 AM EDT Albania Dutton MD CHEMISTRY ORDERA BLES Performing Organization Address [facility] Co de Phone Number [facility] [place] [address] * T4, free (05/15/2024 8:03 AM EDT) Free T4 1.08 0.93 - 1.70 ng/dL 05/15/2024 8:52 AM EDT [facility] Blood VENOUS BLOOD SPECIMEN / Unknown Venipuncture / Unknown 05/15/2024 8:03 AM EDT 05/15/2024 8:03 AM EDT Albania Dutton MD CHEMISTRY ORDERA BLES Performing Organization Address [facility] de Phone Number [facility] [place] [address] * (ABNORMAL) Lactate Dehydrogenase (05/15/2024 8:03 AM EDT) Only the most recent of3 resultswithin the time period is included. [facility] Lactate Dehydrogenase 270(H) 110 - 220 unit/L 05/15/2024 8:52 AM EDT [facility] Blood VENOUS BLOOD SPECIMEN / Unknown Venipuncture / Unknown 05/15/2024 8:03 AM EDT 05/15/2024 8:03 AM EDT Albania Dutton MD CHEMISTRY ORDERA BLES Performing Organization Address [facility] de Phone Number [facility] [place] [address] * (ABNORMAL) Comprehensive metabolic panel Non-fasting (05/15/2024 8:03 AM EDT) Only the most recent of3 resultswithin the time period is included. Glucose 84 65 - 199 mg/dL 05/15/2024 8:52 AM [facility] Comment:Glucose Concentratio n >=200 mg/dL plus symptoms is consistent with Diabetes Mellitus. Blood Urea Nitrogen 17 10 - 20 mg/dL 05/15/2024 8:52 AM [facility] Creatinine 0.83 0.80 - 1.50 mg/dL 05/15/2024 8:52 AM [facility] Sodium 137 135 - 145 mMol/L 05/15/2024 8:52 AM [facility] Potassium 4.6 3.5 - 5.0 mMol/L 05/15/2024 8:52 AM [facility] Chloride 100 98 - 107 mMol/L 05/15/2024 8:52 AM [facility] Carbon Dioxide 30 22 - 31 mMol/L 05/15/2024 8:52 AM [facility] Anion Gap 7 5 - 15 mMol/L 05/15/2024 8:52 AM [facility] Calcium 9.9 8.5 - 10.5 mg/dL 05/15/2024 8:52 AM [facility] Protein, Total 7.9 6.1 - 8.0 g/dL 05/15/2024 8:52 AM [facility] Albumin 3.6 3.2 - 5.2 g/dL 05/15/2024 8:52 AM [facility] Aspartate Aminotransferase 41(H) <=39 unit/L 05/15/2024 8:52 AM [facility] Alanine Aminotransferase 54 0 - 55 unit/L 05/15/2024 8:52 AM [facility] Alkaline Phosphatase 225(H) 40 - 130 unit/L 05/15/2024 8:52 AM [facility] Bilirubin, Total 0.3 <=1.3 mg/dL 05/15/2024 8:52 AM [facility] Est Glomerular Filtration Rate - Male 94 mL/min/1. 73 m?? 05/15/2024 8:52 AM EDT [facility] Comment: This patient's estimated GFR [...] Foundation Fasting Status No 05/15/2024 8:52 AM EDT [facility] Blood VENOUS BLOOD SPECIMEN / Unknown Venipuncture / Unknown 05/15/2024 8:03 AM EDT 05/15/2024 8:03 AM EDT Albania Dutton MD CHEMISTRY TARAHA BLEJose Performing Organization Address [facility]/ZIP Co de Phone Number [facility] [place] [address] * Film Library- Storage Only CT Chest (05/09/2024 4:08 PM EDT) Only the most recent of2 resultswithin the time period is included. Narrative RAD - 05/09/2024 4:08 PM EDT This exam is auto-finalizing. It's purpose is for storage only. America Rosenberg MD IMG FILM LIBRARY ORD ERABLES Performing Organization Address [facility]/ZIP Co de Phone Number [place], [place] * MRI Brain wwo Contrast (Generic) (05/07/2024 9:14 AM EDT) WORKSTATION ID [id number] RAD Anatomical Region Laterality Modality Head Magnetic Resonan ce Impressions 05/08/2024 12:31 AM EDT 1. ??No acute infarction, mass or mass effect. 2. ??No abnormal enhancement. 3. ??No evidence of metastatic disease. Thank you for letting us participate in the care of this patient. ??If you are a health care provider and have any questions regarding this report, please contact the number below. ??For patients who have questions please contact the health post acute care registered nurse that requested your imaging first. ? Narrative 05/08/2024 12:31 AM EDT EXAMINATION: MRI BRAIN WWO CONTRAST (GENERIC) CLINICAL HISTORY: Newly diagnosed stage IV NSCLC C34.92, Malignant neoplasm of unspecified part of left bronchus or lung TECHNIQUE: MRI of the brain was performed before and after the intravenous administration of 12cc Dotarem. COMPARISON: None FINDINGS: Ventricles are normal in size. Basal cisterns are patent. No mass effect or midline shift. No abnormal restricted diffusion. No evidence of acute cortical infarction. No vasogenic edema. No significant white matter signal abnormalities. No extra-axial collections. The orbits are unremarkable. No abnormal signal within the paranasal sinuses or mastoid air cells. Normal intracranial intravascular flow voids. No susceptibility related signal loss to suggest microhemorrhage. No abnormal brain parenchymal or meningeal enhancement. Normal marrow space signal. Procedure Note Comse Min MD - 05/08/2024 EXAMINATION: MRI BRAIN WWO CONTRAST (GENERIC) CLINICAL HISTORY: Newly diagnosed stage IV NSCLC C34.92, Malignant neoplasm of unspecified part of left bronchus or lung TECHNIQUE: MRI of the brain was performed before and after the intravenousadministration of 12cc Dotarem. COMPARISON: None FINDINGS: Ventricles are normal in size. Basal cisterns are patent. No mass effector midline shift. No abnormal restricted diffusion. No evidence of acutecortical infarction. No vasogenic edema. No significant white matter signal abnormalities. No extra-axial collections. The orbits are unremarkable.No abnormal signal within the paranasal sinuses or mastoid air cells.Normal intracranial intravascular flow voids. No susceptibility related signalloss to suggest microhemorrhage. No abnormal brain parenchymal or meningealenhancement. Normal marrow space signal. IMPRESSION 1. No acute infarction, mass or mass effect. 2. No abnormal enhancement. 3. No evidence of metastatic disease. Thank you for letting us participate in the care of this patient. If youare a health care provider and have any questions regarding this report,please contact the number below. For patients who have questions please contactthe health post acute care registered nurse that requested your imaging first. Andrea Freeman MD IM MRI ORDERABLES * Immunophenotyping Flow Cytometry (04/24/2024 8:22 AM EDT) Only the most recent of2 resultswithin the time period is included. Final Diagnosis - No phenotypically abnormal T-cell population detected, limited number of B-cells for assessment (see Comment). 04/25/2024 11:54 AM [facility] Signing Pathologist This result has been reviewed by Misbah Hand DO on 04/25/24 at 11:54 AM. 04/25/2024 11:54 AM [facility] Discussion Flow cytometry does not detect certain hematolymphoid malignancies and non-hematolymphoid malignancies. Correlation with pending morphology from the biopsy is recommended. 04/25/2024 11:54 AM [facility] Interpretation B-cells were less than 30 in number, too few for adequate assessment. 04/25/2024 11:54 AM [facility] Lymphocyte % 15.0 % 04/25/2024 11:54 AM [facility] CD3+ % 52.0 % 04/25/2024 11:54 AM [facility] CD19+ % 1.0 % 04/25/2024 11:54 AM [facility] CD56+ % 43.0 % 04/25/2024 11:54 AM [facility] B-Cell:T-Cell Ratio 0.0 04/25/2024 11:54 AM [facility] [place]:Lambda Ratio 1.6 04/25/2024 11:54 AM [facility] CD4:CD8 Ratio 1.0 04/25/2024 11:54 AM [facility] Cell Viability % 68.2 % 04/25/20 11:54 AM [facility] Specimen Processing Cells for immunophenotypic analysis were derived from lung fine needle biopsy. The following markers were assessed: CD2, CD3, CD4, CD5, CD7, CD8, CD10, CD19, CD45, CD56, kappa light chain, and lambda light chain. 04/25/2024 11:54 AM [facility] Disclaimer Flow analysis is an ancillary study. A definite diagnosis requires correlation with the morphologic features of this process and if necessary, correlation with other ancillary studies like immunohistochemist ry, enzyme cytochemistry and/or cyto/molecular genetics. This test was developed and its performance characteristics determined by the Clinical Flow Cytometry Laboratory at [facility]. It has not been cleared or approved by the U.S. Food and Drug Administration. The FDA has determined that such clearance or approval is not necessary. This test is used for clinical purposes. It should not be regarded as investigational or for research. This laboratory is certified under the Clinical Laboratory Improvement Act of 1988 (CLIA) as qualified to perform high complexity clinical laboratory testing. 04/25/2024 11:54 AM [facility] Clinical Information Lung nodules 04/25/2024 11:54 AM [facility] Fine Needle Aspirate STRUCTURE OF LOWER LOBE OF LEFT LUNG / Unknown Non Blood Collection / Unknown 04/24/2024 8:22 AM EDT 04/24/2024 8:42 AM EDT Andrea Freeman MD HEMATOLOGY ORDERABLE S [facility] [place] [address] * (ABNORMAL) Cytology FNA (04/24/2024 8:22 AM EDT) Only the most recent of4 resultswithin the time period is included. Case Report Medical Cytology Report ? Case: [id number] ? Authorizing Provider: ??Andrea Freeman MD ? Collected: ? 04/24/2024821 ? Ordering Location: ? [place] at [facility] [place] Received: ?04/24/2024842 ? Pathologist: ? Kedar Connor MD ? Specimen: ?Lung, Left Lower Lobe ? 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 Cell block was examined. See note. Note: The malignant cells have high nuclear to cytoplasmic ratios, hyperchromatic chromatin and occasional nucleoli and pseudoinclusions. By immunohistochemistry they show strong expression for keratin ([id number]) and squamous markers (p40, CK5) with patchy, weak neuroendocrine marker expression (INSM1). Importantly, the malignant cells show only very rare staining for two additional neuroendocrine markers (synaptophysin, chromogranin) which should be positive in a neuroendocrine carcinoma. The malignant cells also show strong expression of p16 which, although it can be expressed in many carcinomas, raises the possibility of an HPV driven process. Clinical and radiological correlation is recommended. 1:14 PM [facility] Specimen Adequacy Satisfactory for evaluation. 1:14 PM [facility] Addendum PD-L1 Report Tissue: Lung, Left Lower Lobe, EBUS-guided FNA Block: A1 Tumor Proportion Score (TPS): % Expression: 10 Interpretation Table: PD-L1 assay (22C3 pharmDX) for Keytruda Tumor Proportion Score (TPS): <1% PD-L1 Negative >=1% PD-L1 Expression Immunohistochemical assay was performed on paraffin-embedded tissue sections fixed in 10% neutral buffered formalin for 6-72 hours using the polymer system technique with appropriate controls. The assay was performed according to the project product manager's instructions using Anti-PD-L1 (22C3, pharmDX) antibody. 4 1:14 PM [facility] Addendum electronically signed by Kedar Connor MD on 05/14/2024 at 1:14 PM Additional Studies Task ID IHC/Special Stains Result A1-2 TTF1 Negative A1-3 p40 Positive A1-4 Synaptophysin Rare, weak positive A1-5 INSM1 Patchy positive A1-6 CD45 Negative A1-7 Ki-67 Positive >70% A1-8 [id number] Positive A1-9 RB1 Rare positive A1-10 Chromogranin A Rare, weak positive A1-11 CK5 Positive A1-12 NUT Negative A1-13 p16 Positive 1:14 PM EDT [facility] Disclaimer(s) Formalin-fixed, paraffin-embedded tissue sections are studied using the polymer technique with appropriate positive and negative controls. These IHC studies provide the pathologist with adjunctive diagnostic information. Antibody specificity has been verified by testing antibodies on a series of in-house tissues with known immunohistochemical performance characteristics. The clinical interpretation of any antibody positive staining or its absence is evaluated within the context of clinical presentation, morphology, histopathological criteria and other diagnostic tests. 1:14 PM EDT [facility] Clinical Information 68 y.o with mediastinal mass 1:14 PM EDT [facility] Gross Description Received in formalin, approximately 20 mL total volume of cloudy, red fluid with clots. Total preparation: Cell Block: 1. 1:14 PM EDT [facility] Result Note THIS RESULT REQUIR ES PHYSICIAN/MARVIN FOLLOW UP(A) 1:14 PM EDT [facility] Fine Needle Aspirate STRUCTURE OF LOWER LOBE OF LEFT LUNG / Unknown Non Blood Collection / Unknown 04/24/2024 8:22 AM EDT 04/24/2024 8:43 AM EDT Andrea Freeman MD PATHOLOGY/CYTOLOGY O RDERABLES Performing Organization Address City/State/[facility] Co de Phone Number [facility] [place] [address] * XR Chest PA & Lateral (Generic) (04/16/2024 1:08 PM EDT) WORKSTATION ID [id number] DH RAD Anatomical Region Laterality Modality Chest N/A Digital Radiogra phy Impressions 04/16/2024 1:44 PM EDT Trace posterior pleural effusions. No pneumothorax. Thank you for letting us participate in the care of this patient. ??If you are a health care provider and have any questions regarding this report, please contact the number below. ??For patients who have questions please contact the health post acute care registered nurse that requested your imaging first. ? Electronically signed by: JOSE ROBERTO CHAPIN MD, [facility] ([phone]), at 04/16/2024 1:44 PM Narrative 04/16/2024 1:44 PM EDT EXAMINATION: XR CHEST PA AND LATERAL (GENERIC) CLINICAL HISTORY: s/p left thoracentesis J90, Pleural effusion, not elsewhere classified TECHNIQUE: PA and lateral views of the chest COMPARISON: PET-CT, 04/11/2024 FINDINGS: There is blunting of the posterior costophrenic angles representing trace pleural effusions. There is no pneumothorax. The cardiac silhouette is normal in size. The pulmonary vascularity is within normal limits. Subsegmental atelectasis is present in the lung bases. Procedure Note Jose Roberto Chapin MD - 04/16/2024 EXAMINATION: XR CHEST PA AND LATERAL (GENERIC) CLINICAL HISTORY: s/p left thoracentesis J90, Pleural effusion, not elsewhere classified TECHNIQUE: PA and lateral views of the chest COMPARISON: PET-CT, 04/11/2024 FINDINGS: There is blunting of the posterior costophrenic angles representingtrace pleural effusions. There is no pneumothorax. The cardiac silhouette is normal in size. The pulmonary vascularity iswithin normal limits. Subsegmental atelectasis is present in the lung bases. IMPRESSION Trace posterior pleural effusions. No pneumothorax. Thank you for letting us participate in the care of this patient. If youare a health care provider and have any questions regarding this report,please contact the number below. For patients who have questions please contactthe health post acute care registered nurse that requested your imaging first. Seven Saha MD IMG DX ORDERABLES * Pathology Fluid Review (04/16/2024 11:45 AM EDT) Pathology Interpretation Abnormal cells suspicious for malignancy . Cytology review recommended. This study is optimal for evaluation of abnormal lymphocytic infiltrates and blasts in fluid specimens. For metastatic nonlymphoid malignancies like carcinomas, subtle involvement, ??especially cases with unknown primary disease, ??the specimens are optimally reviewed by cytology evaluation where further work-up with immunostains can be performed for a more definitive diagnosis. 04/17/2024 1:08 PM EDT [facility] Pathology Slide Review 04/17/2024 1:08 PM EDT [facility] Signing Pathologist This result has been reviewed by TERRY JEAN-BAPTISTE MD on 04/17/24 at 1:08 PM. 04/17/2024 1:08 PM EDT [facility] Body Fluid LEFT PLEURAL FLUID / Unknown 04/16/2024 11:45 AM EDT 04/16/2024 1:21 PM EDT Seven Saha MD BODY FLUIDS AND STOO LS ORDERABLES [facility] [place] [address] * (ABNORMAL) Cell Count Pulmonary Fluid ([facility]) (04/16/2024 11:45 AM EDT) Color, Fld [place] 04/16/2024 2:06 PM EDT [facility] Appearance, PF Slightly Cloudy 04/16/2024 2:06 PM EDT [facility] Seg PF Count 43 % 04/16/2024 2:06 PM EDT [facility] Lymph PF Count 34 % 04/16/2024 2:06 PM EDT [facility] Macrophage PF Count 23 % 04/16/2024 2:06 PM EDT [facility] WBC Count, PF 1,093(H) <500 Cells 04/16/2024 2:06 PM EDT [facility] Comment: All body fluid results should always be interpreted in light of the total clinical presentation of the patient, including clinical history, data from additional tests and other appropriate information. FLUID DIFF COUNT 200 04/16/20 24 2:06 PM EDT [facility] Body Fluid LEFT PLEURAL FLUID / Unknown 04/16/2024 11:45 AM EDT 04/16/2024 1:21 PM EDT Seven Saha MD BODY FLUIDS AND STOO LS ORDERABLES Performing Organization Address [facility] Co de Phone Number [facility] [place] [address] * Body Fluid Culture, Aerobic (04/16/2024 11:45 AM EDT) Body Fluid Culture No growth 04/20/2024 9:44 AM EDT [facility] Gram Stain Cytocentrifuge Gram Stain performed 04/20/2024 9:44 AM EDT [facility] Gram Stain Neutrophils seen 04/20/20 9:44 AM EDT [facility] Gram Stain No microorganisms seen 04/20/2024 9:44 AM EDT [facility] Body Fluid LEFT PLEURAL FLUID / Unknown 04/16/2024 11:45 AM EDT 04/16/2024 1:21 PM EDT Seven Saha MD MICROBIOLOGY - GENER AL ORDERABLES Performing Organization Address City/[facility]/ZIP Co de Phone Number [facility] [place] [address] * Protein Level Body Fluid (04/16/2024 11:45 AM EDT) Protein, Fluid 3.6 g/dL 04/16/2024 2:00 PM EDT [facility] Comment:Reference intervals are unavailable for this test in body fluids. Comparison of this result with the concentration in blood serum or plasma is recommended. This test has not been cleared by the [place] FDA. Performance characteristics of this test for the analysis of body fluids were determined by [facility] in accordance with CLIA requirements. This laboratory is qualified under CLIA to perform high-complexity testing. Body Fluid Source Pleural Fluid, Left 04/16/2024 2:00 PM EDT [facility] Body Fluid LEFT PLEURAL FLUID / Unknown 04/16/2024 11:45 AM EDT 04/16/2024 1:21 PM EDT Seven aSha MD BODY FLUIDS AND STOO LS ORDERABLES Performing Organization Address [facility] Co de Phone Number [facility] [place] [address] * Lactate Dehydrogenase Body Fluid (04/16/2024 11:45 AM EDT) Lactate Dehydrogenase, Fluid 246 unit/L 04/16/2024 2:00 PM EDT [facility] Comment:Reference intervals are unavailable for this test in body fluids. Comparison of this result with the concentration in blood serum or plasma is recommended. This test has not been cleared by the [place] FDA. Performance characteristics of this test for the analysis of body fluids were determined by [facility] in accordance with CLIA requirements. This laboratory is qualified under CLIA to perform high-complexity testing. Body Fluid Source Pleural Fluid, Left 04/16/2024 2:00 PM EDT [facility] Body Fluid LEFT PLEURAL FLUID / Unknown 04/16/2024 11:45 AM EDT 04/16/2024 1:21 PM EDT Andrea Freeman MD BODY FLUIDS AND STOO LS ORDERABLES Performing Organization Address City/[facility]/ZIP Co de Phone Number [facility] [place] [address] * Glucose Level Body Fluid (04/16/2024 11:45 AM EDT) Glucose, Fluid 107 mg/dL 04/16/2024 2:00 PM EDT [facility] Body Fluid Source Pleural Fluid, Left 04/16/2024 2:00 PM EDT [facility] Body Fluid LEFT PLEURAL FLUID / Unknown 04/16/2024 11:45 AM EDT 04/16/2024 1:21 PM EDT Narrative [facility] - 04/16/2024 2:00 PM EDT Reference intervals are unavailable for this test in body fluids. Comparison of this result with the concentration in blood, serum, or plasma is recommended. This test has not been cleared by the [place] FDA. Performance characteristics of this test for the analysis of body fluids were determined by [facility] in accordance with CLIA requirements. This laboratory is qualified under CLIA to perform high-complexity testing. Seven Saha MD BODY FLUIDS AND STOO LS ORDERABLES Performing Organization Address [facility]/ZIP Co de Phone Number [facility] [place] [address] * Albumin Level Body Fluid (04/16/2024 11:45 AM EDT) Albumin, Fluid 2.1 g/dL 04/16/2024 2:00 PM EDT [facility] Comment:Reference intervals are unavailable for this test in body fluids. Comparison of this result with the concentration in blood serum or plasma is recommended. This test has not been cleared by the [place] FDA. Performance characteristics of this test for the analysis of body fluids were determined by [facility] in accordance with CLIA requirements. This laboratory is qualified under CLIA to perform high-complexity testing. Body Fluid Source Pleural Fluid, Left 04/16/2024 2:00 PM EDT [facility] Body Fluid LEFT PLEURAL FLUID / Unknown 04/16/2024 11:45 AM EDT 04/16/2024 1:21 PM EDT Seven Saha MD BODY FLUIDS AND STOO LS ORDERABLES Performing Organization Address [facility]/ZIP Co de Phone Number [facility] [place] [address] * Cytology Non-BOARDING HOUSE COOK (04/16/2024 10:52 AM EDT) Case Report Medical Cytology Report ? Case: [id number] ? Authorizing Provider: ??Seven Saha MD ? Collected: ? 04/16/2024 1052 ? Ordering Location: ? [place]ology [place] [facility] ?Received: ?04/16/2024 1311 ? Pathologist: ? Jose Luis Matute MD ? Specimen: ?Pleural Fluid, Left ? 04/18/2024 5:16 PM EDT [facility] Specimen Source Pleural Fluid, Left 04/18/2024 5:16 PM EDT [facility] Final Diagnosis Negative for malignancy 04/18/2024 5:16 PM EDT [facility] Diagnosis Discussion Predominantly reactive mesothelial cells, macrophages, neutrophils, and lymphocytes present. No overtly cytologically malignant cells seen. Cell block was examined. 04/18/2024 5:16 PM EDT [facility] Specimen Adequacy Satisfactory for evaluation. 04/18/2024 5:16 PM EDT [facility] Additional Studies Task ID IHC/Special Stains Result A2-2 Calretinin Positive in mesothelial cells A2-3 CEA Barren Negative A2-4 CD68 Positive in macrophages 04/18/2024 5:16 PM EDT [facility] Disclaimer(s) Formalin-fixed, paraffin-embedded tissue sections are studied using the polymer technique with appropriate positive and negative controls. These IHC studies provide the pathologist with adjunctive diagnostic information. Antibody specificity has been verified by testing antibodies on a series of in-house tissues with known immunohistochemical performance characteristics. The clinical interpretation of any antibody positive staining or its absence is evaluated within the context of clinical presentation, morphology, histopathological criteria and other diagnostic tests. 04/18/2024 5:16 PM EDT [facility] Clinical Information Mediastinal mass 04/18/2024 5:16 PM EDT [facility] Gross Description Received fresh, approximately 90 mL total volume of cloudy, red fluid with light flecks. Total preparation: ThinPrep: 1 and Cell Block: 1. 04/18/2024 5:16 PM EDT [facility] Result Note Routine 04/18/2024 5:16 PM EDT [facility] Body Fluid LEFT PLEURAL FLUID / Unknown 04/16/2024 10:52 AM EDT 04/16/2024 1:11 PM EDT Seven Saha MD PATHOLOGY/CYTOLOGY O RDERABLES [facility] [place] [address] * NM PET CT Skull Base to Mid-thigh (04/11/2024 11:00 AM EDT) WORKSTATION ID [id number] DH RAD Anatomical Region Laterality Modality Positron Emissio n Tomography (PET) Impressions 04/14/2024 3:40 PM EDT 1. ??Large FDG avid anterior mediastinal mass, highly suspicious for malignancy, with small cell lung cancer the leading differential. Thymic carcinoma and lymphoma are also in the differential. 2. ??FDG avid pericardial thickening with large pericardial effusion, highly suspicious for pericardial metastases, with a reactive versus malignant pericardial effusion. 3. ??Right supraclavicular, right paratracheal, subcarinal, and bilateral hilar erica metastases. 4. ??Multiple FDG avid subcentimeter lung nodules, highly suspicious for pulmonary metastases. 5. ??Osseous metastases in the left sacral ala and likely also in right anterolateral ribs 3 and 4. 6. ??New moderate left and small right pleural effusions. 7. ??Findings were communicated with Dr. America Rosenberg at 2:40 PM on 04/14/24. I have personally reviewed the image(s) and the resident's interpretation and agree with the findings, Rishabh Cohen MD at 04/14/2024 3:40 PM Thank you for letting us participate in the care of this patient. ??If you are a health care provider and have any questions regarding this report, please contact the number below. ??For patients who have questions please contact the health post acute care registered nurse that requested your imaging first. ? Narrative 04/14/2024 3:40 PM EDT EXAMINATION: NM PET CT STANDARD SKULL BASE TO MID-THIGH CLINICAL HISTORY: multiple nodules of lung; other nonspecific abnormal finding of lung field R91.8, Other nonspecific abnormal finding of lung field TECHNIQUE: Following IV injection of 05-htfsps-0-deoxyglucose (FDG) a standard uptake of approximately 60 minutes, a noncontrast CT scan followed by a PET scan were acquired from the base of the skull to mid thighs. The noncontrast CT was used for anatomic localization and photon attenuation correction of the PET scan. Blood glucose level: 76 (mg/dL) FDG dose: 10.1 mCi Mean liver SUV: 1.6 COMPARISON: CT chest 03/28/2024. FINDINGS: HEAD/NECK: Normal activity in all soft tissue regions of the neck and visualized lower head. No adenopathy. CHEST: Mildly FDG avid bilateral multilobar subcentimeter nodules, and additional smaller CT visualized bilateral pulmonary nodules that are likely below the sensitivity of PET. Heterogeneously FDG avid mass centered in the anterior mediastinum with SUV max of 9.5 (image 87). Additional FDG avid right supraclavicular, right upper and lower paratracheal, subcarinal, and left greater than right hilar adenopathy. Patchy areas of FDG avid pericardial thickening, most notable along the anterior pericardium (for example axial image 102-114). Large pericardial effusion, unchanged from CT of 03/28/2024. Small right and moderate left pleural effusions, new from CT of 03/28/2024. Subsegmental left lower lobe atelectasis. Aortic calcifications. ABDOMEN/PELVIS: Normal activity in all soft tissue regions. No adenopathy. Cholecystectomy. SKELETON/EXTREMITIES: FDG avid lytic lesion of the left upper sacral ala with cortical breakthrough at the SI joint (images 184-190). Small FDG avid lesions in the right anterolateral ribs 3 and 4 (axial images 83 and 85), with no CT correlate. Mildly increased marrow activity in the remainder of the axial and proximal appendicular skeleton, favored reactive marrow Procedure Note Rishabh Cohen MD - 04/14/2024 EXAMINATION: [place] PET CT STANDARD SKULL BASE TO MID-THIGH CLINICAL HISTORY: multiple nodules of lung; other nonspecific abnormalfinding of lung field R91.8, Other nonspecific abnormal finding of lung field TECHNIQUE: Following IV injection of 06-nbugzx-5-deoxyglucose (FDG) astandard uptake of approximately 60 minutes, a noncontrast CT scan followed by aPET scan were acquired from the base of the skull to mid thighs. The noncontrast CTwas used for anatomic localization and photon attenuation correction of thePET scan. Blood glucose level: 76 (mg/dL) FDG dose: 10.1 mCi Mean liver SUV: 1.6 COMPARISON: CT chest 03/28/2024. FINDINGS: HEAD/NECK: Normal activity in all soft tissue regions of the neck and visualizedlower head. No adenopathy. CHEST: Mildly FDG avid bilateral multilobar subcentimeter nodules, andadditional smaller CT visualized bilateral pulmonary nodules that are likely belowthe sensitivity of PET. Heterogeneously FDG avid mass centered in the anterior mediastinum withSUV max of 9.5 (image 87). Additional FDG avid right supraclavicular, right upper and lowerparatracheal, subcarinal, and left greater than right hilar adenopathy. Patchy areas of FDG avid pericardial thickening, most notable along theanterior pericardium (for example axial image 102-114). Large pericardial effusion, unchanged from CT of 03/28/2024. Small right and moderate left pleural effusions, new from CT of03/28/2024. Subsegmental left lower lobe atelectasis. Aortic calcifications. ABDOMEN/PELVIS: Normal activity in all soft tissue regions. No adenopathy. Cholecystectomy. SKELETON/EXTREMITIES: FDG avid lytic lesion of the left upper sacral ala with corticalbreakthrough at the SI joint (images 184-190). Small FDG avid lesions in the right anterolateral ribs 3 and 4 (axialimages 83 and 85), with no CT correlate. Mildly increased marrow activity in the remainder of the axial andproximal appendicular skeleton, favored reactive marrow IMPRESSION 1. Large FDG avid anterior mediastinal mass, highly suspicious formalignancy, with small cell lung cancer the leading differential. Thymic carcinomaand lymphoma are also in the differential. 2. FDG avid pericardial thickening with large pericardial effusion,highly suspicious for pericardial metastases, with a reactive versus malignant pericardial effusion. 3. Right supraclavicular, right paratracheal, subcarinal, and bilateralhilar erica metastases. 4. Multiple FDG avid subcentimeter lung nodules, highly suspicious for pulmonary metastases. 5. Osseous metastases in the left sacral ala and likely also in right anterolateral ribs 3 and 4. 6. New moderate left and small right pleural effusions. 7. Findings were communicated with Dr. America Rosenberg at 2:40 PM on04/14/24. I have personally reviewed the image(s) and the resident's interpretationand agree with the findings, Rishabh Cohen MD at 04/14/2024 3:40 PM Thank you for letting us participate in the care of this patient. If youare a health care provider and have any questions regarding this report,please contact the number below. For patients who have questions please contactthe health post acute care registered nurse that requested your imaging first. America Rosneberg MD IMG PET ORDERABLES * POC, GLUCOSE (04/11/2024 9:43 AM EDT) Glucometer, POC 76 65 - 199 mg/dL 04/11/2024 9:43 AM EDT [facility] Comment:Supplemental ranges: <140 mg/dL before meals <180 mg/dL all other times of the day. Blood CAPILLARY BLOOD / Unknown 04/11/2024 9:43 AM EDT 04/11/2024 9:43 AM EDT America Rosenberg MD POINT OF CARE TEST O RDERABLES [facility] [address] * Scan Doc: [facility] - Provider Care (04/03/2024 12:00 AM EDT) Only the most recent of2 resultswithin the time period is included. Narrative 04/03/2024 12:00 AM EDT Ordered by an unspecified provider. Scanning Provider MEDIA MGR SCAN EXT O RDR/RSLT * ECHO COMPLETE (04/02/2024 9:55 AM EDT) EF 60 HEARTLAB SYSTEM Anatomical Region Laterality Modality Other 04/02/2024 7:48 AM EDT Narrative 04/02/2024 10:17 AM EDT [address] [place] [address] ? Echocardiogram Report Name: BRANDEE ARGELIA Gary ?Study Date: 04/02/2024 07:48 AMBP: 121/69 mmHg : 1955 ? Height: 160 cm ? Account: [id number] Age: 68 yrs ? Weight: 63 kg Gender: Male ?BSA: 1.7 m2 Ordering Physician: AMERICA ROSENBERG Referring Physician: AMERICA ROSENBERG Performed By: JOSEPH Reason For Study: Pericardial Effusion Exam Location: [facility]. Interpretation Summary -There is a moderate pericardial effusion. The pericardial effusion is circumferential but largest anteiorly. Fibrinous strands are present in the pericardial effusion. There is no echocardiographic tamponade. -Left ventricular systolic function is normal. Left ventricular ejection fraction is estimated visually at 60%. There are no segmental wall motion abnormalities. -The right ventricle is of normal size. Right ventricular systolic function is normal. -No significant valve disease. -No comparison study is available. Procedure Complete-[id number]. Satisfactory quality. Left Ventricle Left ventricle is of normal size. Wall thickness is normal. Left ventricular systolic function is normal. Left ventricular ejection fraction is estimated visually at 60%. There are no segmental wall motion abnormalities. Right Ventricle The right ventricle is of normal size. Right ventricular systolic function is normal. Left Atrium The left atrium is normal. There is no evidence for a patent foramen ovale. Right Atrium The right atrium is normal. Aortic Valve The aortic valve is structurally normal. There is no aortic stenosis. There is trace aortic regurgitation. Mitral Valve The mitral valve is structurally normal. There is no mitral stenosis. There is trace mitral regurgitation. Tricuspid Valve The tricuspid valve is structurally normal. There is no tricuspid stenosis. There is mild tricuspid regurgitation. Pulmonic Valve The pulmonic valve appears to be structurally normal. There is no valvular pulmonic stenosis. There is trace pulmonic valve regurgitation. Great Arteries The aortic root is of normal size. No abnormalities are identified. Ascending aorta is normal in size. Venous Inferior vena cava is dilated. Inferior vena cava collapse less than 50% with respiration. Pericardium/Pleural There is a moderate pericardial effusion. The pericardial effusion is circumferential. Fibrinous strands are present in the pericardial effusion. There is no evidence of hemodynamic compromise. Hemodynamics The peak right ventricular systolic pressure is 28.3 mmHg . There is Grade I LV diastolic dysfunction (abnormal relaxation with normal left ventricular filling pressure). ? 2D Measurements ? Volumes ?IVSd: 0.99 cm ?LA Volume Index: ?LVIDd: 3.9 cm ?LVIDs: 2.6 cm ?27.8 ml/m2 ?LVPWd: 1.0 cm ?SV(LVOT): 68.1 ml ? LV Stroke Volume: 68.1 ml ?RWT: 0.52 {ratio} ?SI(LVOT): 41.1 ml/m2 ?LV mass(C)d: 119.6 grams ?LV mass(C)dI: 72.2 grams/m2 ?Ao root diam: 3.2 cm ?Ao root diam index: 1.9 ?asc Aorta Diam: 3.2 cm ?LVOT diam: 2.0 cm ?TAPSE_phl: 1.3 cm Doppler LV V1 VTI: 21.5 cm LVOT max Velocity: 112.6 cm/sec Ao V2 VTI: 29.6 cm Ao Max: 133.1 cm/sec Ao valve max: 7.1 mmHg Ao valve mean: 4.5 mmHg MV E max robel: 81.8 cm/sec MV A max robel: 72.1 cm/sec MV E/A: 1.1 MV dec time: 0.22 sec MV mean P.4 mmHg Lat Peak E' Robel: 8.7 cm/sec E/e' (lat): 9.4 Med Peak E' Robel: 8.7 cm/sec E/e' (med): 9.4 E/e' Average: 9.4 MARGOT(I,D): 2.3 cm2 Dimensionless index Aov: 0.73 AI P1/2t: 490.1 msec TR max robel: 225.4 cm/sec RVSP(TR): 28.3 mmHg Procedure Note Sabino Ortiz MD - 04/02/2024 [address] [place] [address] Echocardiogram Report Name: ARGELIA IRVIN Study Date:04/02/2024 07:48 AMBP: 121/69 mmHg : 1955 Height: 160 cm Account: [id number] Age: 68 yrs Weight: 63 kg Gender: Male BSA: 1.7 m2 Ordering Physician: AMERICA ROSENBERG Referring Physician: AMERICA ROSENBERG Performed By: JOSEPH Reason For Study: Pericardial Effusion Exam Location: [facility]. Interpretation Summary -There is a moderate pericardial effusion. The pericardial effusion is circumferential but largest anteiorly. Fibrinous strands are present inthe pericardial effusion. There is no echocardiographic tamponade. -Left ventricular systolic function is normal. Left ventricular ejectionfraction is estimated visually at 60%. There are no segmental wall motionabnormalities. -The right ventricle is of normal size. Right ventricular systolicfunction is normal. -No significant valve disease. -No comparison study is available. Procedure Complete-[id number]. Satisfactory quality. Left Ventricle Left ventricle is of normal size. Wall thickness is normal. Leftventricular systolic function is normal. Left ventricular ejection fraction isestimated visually at 60%. There are no segmental wall motion abnormalities. Right Ventricle The right ventricle is of normal size. Right ventricular systolic functionis normal. Left Atrium The left atrium is normal. There is no evidence for a patent foramenovale. Right Atrium The right atrium is normal. Aortic Valve The aortic valve is structurally normal. There is no aortic stenosis.There is trace aortic regurgitation. Mitral Valve The mitral valve is structurally normal. There is no mitral stenosis.There is trace mitral regurgitation. Tricuspid Valve The tricuspid valve is structurally normal. There is no tricuspidstenosis. There is mild tricuspid regurgitation. Pulmonic Valve The pulmonic valve appears to be structurally normal. There is novalvular pulmonic stenosis. There is trace pulmonic valve regurgitation. Great Arteries The aortic root is of normal size. No abnormalities are identified.Ascending aorta is normal in size. Venous Inferior vena cava is dilated. Inferior vena cava collapse less than 50%with respiration. Pericardium/Pleural There is a moderate pericardial effusion. The pericardial effusion is circumferential. Fibrinous strands are present in the pericardialeffusion. There is no evidence of hemodynamic compromise. Hemodynamics The peak right ventricular systolic pressure is 28.3 mmHg . There is GradeI LV diastolic dysfunction (abnormal relaxation with normal left ventricularfilling pressure). 2D Measurements Volumes IVSd: 0.99 cm LA VolumeIndex: LVIDd: 3.9 cm LVIDs: 2.6 cm 27.8 ml/m2 LVPWd: 1.0 cm SV(LVOT): 68.1ml LV Stroke Volume:68.1 ml RWT: 0.52 {ratio} SI(LVOT): 41.1ml/m2 LV mass(C)d: 119.6 grams LV mass(C)dI: 72.2 grams/m2 Ao root diam: 3.2 cm Ao root diam index: 1.9 asc Aorta Diam: 3.2 cm LVOT diam: 2.0 cm TAPSE_phl: 1.3 cm Doppler LV V1 VTI: 21.5 cm LVOT max Velocity: 112.6 cm/sec Ao V2 VTI: 29.6 cm Ao Max: 133.1 cm/sec Ao valve max: 7.1 mmHg Ao valve mean: 4.5 mmHg MV E max robel: 81.8 cm/sec MV A max robel: 72.1 cm/sec MV E/A: 1.1 MV dec time: 0.22 sec MV mean P.4 mmHg Lat Peak E' Robel: 8.7 cm/sec E/e' (lat): 9.4 Med Peak E' Robel: 8.7 cm/sec E/e' (med): 9.4 E/e' Average: 9.4 MARGOT(I,D): 2.3 cm2 Dimensionless index Aov: 0.73 AI P1/2t: 490.1 msec TR max robel: 225.4 cm/sec RVSP(TR): 28.3 mmHg America Rosenberg MD ECHO ORDERABLES * Scan Doc: Echo (04/02/2024 12:00 AM EDT) Anatomical Region Laterality Modality Cardiac Other Narrative 04/02/2024 12:00 AM EDT Ordered by an unspecified provider. Scanning Provider MEDIA MGR SCAN EXT O RDR/RSLT from Last 3 Months Care Teams Motor And Controls Tester Relationship Specialty Start Date End Date America Rosenberg MD [address] [place] [address] PCP - General Family Medicine 03/31/24
--- OUTSIDE RECORDS SUMMARY | 2024-05-23 01:22 | XMS_ITS | Encounter Summary ---
Author Organization [facility] [place] [address] Care Team Providers Care Field Artillery Radar Operator Name Role Phone America Caro MD Primary Care Provider [phone] Reason for Visit * Treatment/Therapy Plan Authorization (Routine) - Authorized Specialty Diagnoses / Procedures Referred By Contac t Referred To Contact Hematology and Oncology Diagnoses Non-small cell lung cancer, unspecified laterality Medication management Procedures TC PALONOSETRON HCL, 25MCG, INJ (ALOXI) TC APREPITANT, 1 MG, INJ TC PEMBROLIZUMAB, 1 MG, INJ TC PACLITAXEL PROTEIN-BOUND PARTICLES, 1MG, INJ TC PACLITAXEL PROTEIN-BOUND PARTICLES (SAMMARINESE REGENT), 1 MG, INJ TC CARBOPLATIN, 50MG, INJ (PARAPLATIN) Albania Chahal MD [facility] [address] HEMATOLOGY/[place] [address] Albania Chahal MD [facility] [address] HEMATOLOGY/[place] [address] Referral ID Status Reason Start Date Expiration Date V isits Requested Visits Authorized [id number] Authorized 05/06/2024 05/06/2025 99 100 Encounter Details Date Type Department Care Team (Latest Contact Info) Description 05/15/2024 7:47 AM EDT - 05/15/2024 11:59 PM EDT Hospital Encounter Hematology [place] [address] Non-small cell lung cancer, unspecified laterality; Medication management Discharge Disposition: Home Social History Tobacco Use Types Packs/Day Years Used Date Smoking Tobacco: Former Pipe Passive Smoke Exposure: Past Smokeless Tobacco: Never Comments:Smoke pipe for 10 y ears since 13 years old, Does still smoke pot but is slowing down. Passive Exposure Comments:Second hand smoke since 1548-4077 Alcohol Use Standard Drinks/Week Comments Yes 14 (1 standard drink = 0.6 oz pure alcohol) hardly any for the last month B1300 Health Literacy Answer Date Recor ded How often do you need to hav e someone help you when you read instructions, pamphlets, or other written material from your doctor or pharmacy? Never 05/04/2024 [facility] Utilities Answer Date Recorded In the [...] any time in the past [facility], were you homeless or living in a senior care (including now)? No 05/04/2024 Sex and Gender Information Value Date Recorded Sex Assigned at Not on file Gender Identity Not on file Sexual Orientation Not on file documented as of this encounter Medications at Time of Discharge Medication Sig Dispensed Refills Start Date End Date prochlorperazine (Compazine) 10 mg tablet Take 1 tablet by mouth every 6 hours as needed for Nausea. 15 tablet 05/15/2024 furosemide (Lasix) 20 mg tablet Take 20 mg by mouth daily. 04/17/2024 cholecalciferol, Vitamin D3, 25 mcg (1,000 unit) Capsule take 1 capsule po qd. 03/28/2018 colchicine (Colcrys) 0.6 mg tablet Take 1 tablet by mouth Daily at Noon. 04/10/2024 ibuprofen (Advil) 200 mg tablet Take 200 mg by mouth every 6 hours as needed for Pain. acetaminophen (Tylenol) 325 mg tablet Take 650 mg by mouth every 4 hours as needed for Pain. documented as of this encounter Progress Notes * Linette Coleman RN - 05/15/2024 1:36 PM EDT Patient Name: Henry Javier Patient Age: 68 y.o. Birthdate: 1955 Admit date: 05/15/2024 Attending Physician: No att. providers found Henry Javier, 68 y.o. male with diagnosis of 1. Non-small cell lung cancer, unspecified laterality 2. Medication management is here for chemotherapy infusion of Keytruda, Abraxane, and Carboplatin. PROTOCOL: N/a CYCLE: 1 WEEK: N/a DAY: 1 Treatment start time: 1330 Treatment end time: 1536 S: Pt. offers no complaints at this time. O: Chemotherapy orders independently verified for correct drug name, route and dosage per patient'sheight, weight and BSA by this RN and onsite pharmacist REACTIONS (DESCRIPTION, TIME, INTERVENTION AND EFFECTIVENESS) None reported A: Pt. Tolerated treatment well. Henry Javier confirms that all questions and issues have been addressed. P: Return to clinic per protocol Teaching Instructions Reinforced: Please be sure to drink 24-48 ounces of fluid daily (8-10 cups) Perform oral care (brushing, mouth rinse, etc) three to four times daily Inspect the skin for new cuts/bumps/bruises/rashes daily Protect skin from sun exposure & wear sunscreen when outdoors (SPF 30 minimum) Take measures to prevent infection (such as frequent handwashing for 20-30 seconds, avoiding loved ones if they are ill, and social distancing in public) Follow food safety guidelines (No self-served bars or salads, thoroughly wash fruits & vegetables, no raw meat, ensure meat is cooked well, adhere to best-by dates). Eat as well as you can, prioritizing healthy fruits, vegetables, and protein. Remain active even through fatigue, this can help your energy levels increase. Take your time to get acclimated from sitting to standing Take your temperature daily. Please call with a fever of 100.4 or greater & wait to take medicine for fever until speaking to an oncologist Report any significant constipation/diarrhea (constipation greater than 2 days, or diarrhea greaterthan 3 episodes in a day) documented in this encounter Miscellaneous Notes * Addendum Note - Shannan Tellez RN - 05/15/2024 11:59 PM EDTEncounter addended by: Shannan Tellez, RN on: 05/16/2024 2:31 PM Actions taken: MAR administration edited documented in this encounter Plan of Treatment Upcoming Encounters Date Type Department Care Team (Late st Contact Info) Description 05/23/2024 9:30 AM EST Infusion Hematology Oncology at [address] [address] 05/30/2024 9:00 AM EST Infusion Hematology Oncology at [address] [address] 06/05/2024 9:15 AM EST Laboratory Appointment [place] [facility] [place] [address] [place] [address] 06/05/2024 10:30 AM EST Office Visit Hematology [place] [address] [place]ia Chahal MD [facility] HEMATOLOGY/[place] [address] 06/05/2024 1:00 PM EST Appointment Hematology [place] [address] 06/26/2024 9:15 AM EST Laboratory Appointment Lab at [address] [address] 06/26/2024 10:30 AM EST Office Visit Hematology [place] [address] Albania Chahal MD [facility] HEMATOLOGY/[place] [address] 06/26/2024 12:00 PM EST Appointment Hematology [place] [address] 07/17/2024 9:30 AM EST Laboratory Appointment Lab at [address] [address] 07/17/2024 10:30 AM EST Office Visit Hematology [place] [address] Albania Chahal MD [facility] HEMATOLOGY[place] [address] 07/17/2024 12:00 PM EST Appointment Hematology [place] [address] documented as of this encounter Results * T4, free (05/15/2024 8:03 AM EDT) [facility] Free T4 1.08 0.93 - 1.70 ng/dL 05/15/2024 8:52 AM EDT [facility] Blood VENOUS BLOOD SPECIMEN / Unknown Venipuncture / Unknown 05/15/2024 8:03 AM EDT 05/15/2024 8:03 AM EDT Albania Dutton MD CHEMISTRY ORDERA BLES Performing Organization Address [facility] Co de Phone Number [facility] [place] [address] * (ABNORMAL) TSH (05/15/2024 8:03 AM EDT) Thyroid Stimulating Hormone 6.83(H) 0.27 - 4.20 mcIU/mL 05/15/2024 8:52 AM EDT [facility] Blood VENOUS BLOOD SPECIMEN / Unknown Venipuncture / Unknown 05/15/2024 8:03 AM EDT 05/15/2024 8:03 AM EDT Albania Dutton MD CHEMISTRY ORDERA BLES Performing Organization Address [facility] de Phone Number [facility] [place] [address] * (ABNORMAL) Lactate Dehydrogenase (05/15/2024 8:03 AM EDT) Lactate Dehydrogenase 270(H) 110 - 220 unit/L 05/15/2024 8:52 AM EDT [facility] Blood VENOUS BLOOD SPECIMEN / Unknown Venipuncture / Unknown 05/15/2024 8:03 AM EDT 05/15/2024 8:03 AM EDT Albania Dutton MD CHEMISTRY ORDERA BLES Performing Organization Address [facility] Co de Phone Number [facility] [place] [address] * (ABNORMAL) Comprehensive metabolic panel Non-fasting (05/15/2024 8:03 AM EDT) Glucose 84 65 - 199 mg/dL 05/15/2024 8:52 AM EDT [facility] Comment:Glucose Concentratio n >=200 mg/dL plus symptoms is consistent with Diabetes Mellitus. Blood Urea Nitrogen 17 10 - 20 mg/dL 05/15/2024 8:52 AM [facility] Creatinine 0.83 0.80 - 1.50 mg/dL 05/15/2024 8:52 AM [facility] Sodium 137 135 - 145 mMol/L 05/15/2024 8:52 AM [facility] Potassium 4.6 3.5 - 5.0 mMol/L 05/15/2024 8:52 AM [facility] Chloride 100 98 - 107 mMol/L 05/15/2024 8:52 AM [facility] Carbon Dioxide 30 22 - 31 mMol/L 05/15/2024 8:52 AM [facility] Anion Gap 7 5 - 15 mMol/L 05/15/2024 8:52 AM [facility] Calcium 9.9 8.5 - 10.5 mg/dL 05/15/2024 8:52 AM [facility] Protein, Total 7.9 6.1 - 8.0 g/dL 05/15/2024 8:52 AM [facility] Albumin 3.6 3.2 - 5.2 g/dL 05/15/2024 8:52 AM [facility] Aspartate Aminotransferase 41(H) <=39 unit/L 05/15/2024 8:52 AM [facility] Alanine Aminotransferase 54 0 - 55 unit/L 05/15/2024 8:52 AM [facility] Alkaline Phosphatase 225(H) 40 - 130 unit/L 05/15/2024 8:52 AM [facility] Bilirubin, Total 0.3 <=1.3 mg/dL 05/15/2024 8:52 AM [facility] Est Glomerular Filtration Rate - Male 94 mL/min/1. 73 m?? 05/15/2024 8:52 AM [facility] Comment: This patient's estimated GFR was [...] Fasting Status No 05/15/2024 8:52 AM EDT [facility] Blood VENOUS BLOOD SPECIMEN / Unknown Venipuncture / Unknown 05/15/2024 8:03 AM EDT 05/15/2024 8:03 AM EDT Albania Dutton MD CHEMISTRY ORDERA BLES [facility] [place] [address] * (ABNORMAL) CBC (with Diff) (05/15/2024 8:03 AM EDT) White Blood Cell 7.22 4.00 - 9.50 x10(3)/mc L 05/15/2024 8:19 AM [facility] Red Blood Cell 4.73 4.58 - 5.54 x10(6)/mc L 05/15/2024 8:19 AM [facility] Hemoglobin 12.0(L) 13.7 - 16.5 g/dL 05/15/2024 8:19 AM [facility] Hematocrit 38.4(L) 40.5 - 48.5 % 05/[facility] Mean Cell Volume 81.2(L) 82.9 - [...] % 0.3 % 05/15/2024 8:19 AM EDT [facility] Baso Absolute <0.04 0.00 - 0.10 x10(3)/mc L 05/15/2024 8:19 AM EDT [facility] Immature Gran % 0.4 % 8:19 AM EDT [facility] Immature Gran Absolute <0.04 0.00 - 0.04 x10(3)/mc L 05/15/2024 8:19 AM EDT [facility] Blood VENOUS BLOOD SPECIMEN / Unknown Venipuncture / Unknown 05/15/2024 8:03 AM EDT 05/15/2024 8:03 AM EDT [place] Winsome Dutton MD HEMATOLOGY ORDER [facility] [place] [address] documented in this encounter Visit Diagnoses Diagnosis Non-small cell lung cancer, unspecified laterality Medication management Encounter for long-term (current) use of other medications documented in this encounter Administered Medications Inactive Administered Medications - up to 3 most recent administrations Medication Order MAR Action Action Date Dose Rate Site aprepitant (Cinvanti) (7.2 mg/mL) injection emulsion 130 mg 130 mg, Intravenous, Administer over 2 Minutes, ONCE, 1 dose, On Cherelle 05/15/24 at 1315, Alternative administration of IV push over 2 minutes is a recommendation from the senior recruiter. Administer prior to chemotherapy., Routine Given 05/15/2024 1:44 PM EDT 130 mg CARBOplatin (Paraplatin) 572 mg in dextrose 5% 307.2 mL infusion 572 mg (rounded from 572.4 mg, Target AUC = 6), Intravenous, ONCE, 1 dose, On Cherelle 05/15/24 at 1515, Administer over 30 Minutes, Warning Vesicant/Irritant Medication New Bag 05/15/2024 3:11 PM EDT 572 mg 614.4 mL/hr dexAMETHasone (Decadron) tablet 10 mg 10 mg, Oral, ONCE, 1 dose, On Cherelle 05/15/24 at 1315, Administer prior to chemotherapy, Routine Given 05/15/2024 1:44 PM EDT 10 mg PACLitaxeL albumin-bound (Abraxane) injection 164 mg 164 mg (100 mg/m2/dose ? 1.64 m2 Treatment Plan BSA from Recorded weight), Intravenous, ONCE, 1 dose, On Cherelle 05/15/24 at 1445, Administer over 30 Minutes, Line primed with drug. Final product is a Suspension: resuspend by MILD agitation. Warning Vesicant/Irritant Medication New Bag 05/15/2024 2:32 PM EDT 164 mg 65.6 mL/hr palonosetron (Aloxi) (0.05 mg/mL) injection 0.25 mg 0.25 mg, Intravenous, ONCE, 1 dose, On Cherelle 05/15/24 at 1315, Administer over 30 seconds. Administer prior to chemotherapy., Routine Given 05/15/2024 1:44 PM EDT 0.25 mg pembrolizumab (Keytruda) 200 mg in sodium chloride 0.9% 108 mL infusion 200 mg, Intravenous, ONCE, 1 dose, On Cherelle 05/15/24 at 1415, Administer over 30 Minutes, Flush Line with NS after each dose, This agent is restricted to outpatient use. Is this drug being given as an outpatient? Yes New Bag 05/15/2024 1:52 PM EDT 200 mg 216 mL/hr documented in this encounter Care Teams Field Artillery Radar Operator Relationship Specialty Start Date End Date America Caro MD [address] [place] [address] PCP - General Family Medicine 03/31/24 documented as of this encounter
--- OUTSIDE RECORDS SUMMARY | 2024-05-23 01:22 | XMS_ITS | Encounter Summary ---
Author Organization [facility] Address [facility] [place] [address] Care Team Providers Care Collection Clerk Name Role Phone America Caro MD Primary Care Provider [phone] Encounter Details Date Type Department Care Team (Latest Contact Info) Description 05/16/2024 Travel Social History Tobacco Use Types Packs/Day Years Used Date Smoking Tobacco: Former Pipe Passive Smoke Exposure: Past Smokeless Tobacco: Never Comments:Smoke pipe for 10 y ears since 13 years old, Does still smoke pot but is slowing down. Passive Exposure Comments:Second hand smoke since 1910-8871 Alcohol Use Standard Drinks/Week Comments Yes 14 (1 standard drink = 0.6 oz pure alcohol) hardly any for the last month B1300 Health Literacy Answer Date Recor ded How often do you need to hav e someone help you when you read instructions, pamphlets, or other written material from your doctor or pharmacy? Never 05/04/2024 [facility] Utilities Answer Date Recorded In the past 12 months has [employer], gas, oil, or water Appointedd threatened to shut off services in your [...] any time in the past 12 m [facility], were you homeless or living in a retirement (including now)? No 05/04/2024 Sex and Gender Information Value Date Recorded Sex Assigned at Not on file Gender Identity Not on file Sexual Orientation Not on file documented as of this encounter Plan of Treatment Upcoming Encounters Date Type Department Care Team (Late st Contact Info) Description 05/23/2024 9:30 AM EST Infusion Hematology Oncology at [address] [address] 05/30/2024 9:00 AM EST Infusion Hematology Oncology at [address] [address] 06/05/2024 9:15 AM EST Laboratory Appointment Lab at [facility] [place] [address] [place] [address] 06/05/2024 10:30 AM EST Office Visit Hematology [place] [address] Albania Chahal MD [facility] HEMATOLOGY/[place] [address] 06/05/2024 1:00 PM EST Appointment Hematology [place] [address] 06/26/2024 9:15 AM EST Laboratory Appointment Lab at [facility] [place]ology On[place] [address] [place] [address] 06/26/2024 10:30 AM EST Office Visit Hematology [place] [address] Albania Chahal MD [facility] HEMATOLOGY/[place] [address] 06/26/2024 12:00 PM EST Appointment Hematology [place] [address] 07/17/2024 9:30 AM EST Laboratory Appointment Lab at [facility] [place]ematology Oncology [address] [place] [address] 07/17/2024 10:30 AM EST Office Visit Hematology [place] [address] Albania Chahal MD [facility] HEMATOLOGY/[place] [address] 07/17/2024 12:00 PM EST Appointment Hematology [place] [address] documented as of this encounter Visit Diagnoses Not on filedocumented in this encounter Care Teams Collection Clerk Relationship Specialty Start Date End Date America Caro MD [address] [place] [address] PCP - General Family Medicine 03/31/24 documented as of this encounter
--- OUTSIDE RECORDS SUMMARY | 2024-05-23 01:22 | XMS_ITS | Encounter Summary ---
[place] [address] Care Team Providers Care Algology Teacher Name Role Phone America Caro MD Primary Care Provider [phone] Encounter Details Date Type Department Care Team (Late st Contact Info) Description 05/09/2024 Notes Only H[place]ology [place] [address] Filemon Millan, RN Social History Tobacco Use Types Packs/Day Years Used Date Smoking Tobacco: Former Pipe Passive Smoke Exposure: Past Smokeless Tobacco: Never Comments:Smoke pipe for 10 y ears since 13 years old, Does still smoke pot but is slowing down. Passive Exposure Comments:Second hand smoke since 8692-8929 Alcohol Use Standard Drinks/Week Comments Yes 14 (1 standard drink = 0.6 oz pure alcohol) hardly any for the last month B1300 Health Literacy Answer Date Recor ded How often do you need to hav e someone help you when you read instructions, pamphlets, or other written material from your doctor or pharmacy? Never 05/04/2024 [facility] Utilities Answer Date Recorded In the past [...] any time in the past 12 m [place], were you homeless or living in a residential (including now)? No 05/04/2024 Sex and Gender Information Value Date Recorded Sex Assigned at Not on file Gender Identity Not on file Sexual Orientation Not on file documented as of this encounter Plan of Treatment Upcoming Encounters Date Type Department Care Team (Late st Contact Info) Description 05/23/2024 9:30 AM EST Infusion Hematology Oncology at [address] [address] 05/30/2024 9:00 AM EST Infusion Hematology Oncology at [address] [address] 06/05/2024 9:15 AM EST Laboratory [place] [facility] [place] [address] [place] [address] 06/05/2024 10:30 AM EST Office Visit Hematology [place] [address] Albania Chahal MD [facility] HEMATOLOGY/[place] [address] 06/05/2024 1:00 PM EST Appointment Hematology [place] [address] 06/26/2024 9:15 AM EST Laboratory Appointment Lab at [facility] [place] [address] [place] [address] 06/26/2024 10:30 AM EST Office Visit [place]ematology [place] [address] Albania Chahal MD [facility] [place]ATOLOGY/[place] [address] 06/26/2024 12:00 PM EST Appointment H[place] [address] 07/17/2024 9:30 AM EST Laboratory Appointment Lab at [facility] [place] [address] [address] 07/17/2024 10:30 AM EST Office Visit [place] [address] Albania Chahal MD [facility] HEMATOLOGY/[place] [address] 07/17/2024 12:00 PM EST Appointment Hematology [place] [address] documented as of this encounter Visit Diagnoses Not on filedocumented in this encounter Care Teams Algology Teacher Relationship Specialty Start Date End Date America Caro MD [address] [place] [address] PCP - General Family Medicine 03/31/24 documented as of this encounter
--- OUTSIDE RECORDS SUMMARY | 2024-05-23 01:22 | XMS_ITS | Encounter Summary ---
Author Organization [facility] Address [facility] [place] [address] Care Team Providers Care Inside Sales Name Role Phone America Caro MD Primary Care Provider [phone] Encounter Details Date Type Department Care Team (Late st Contact Info) Description 05/12/2024 Notes Only Hematology [place] [address] Albania Chahal MD [facility] DR HEMATOLOGY/[place] [address] Social History Tobacco Use Types Packs/Day Years Used Date Smoking Tobacco: Former Pipe Passive Smoke Exposure: Past Smokeless Tobacco: Never Comments:Smoke pipe for 10 y ears since 13 years old, Does still smoke pot but is slowing down. Passive Exposure Comments:Second hand smoke since 8604-6575 Alcohol Use Standard Drinks/Week Comments Yes 14 (1 standard drink = 0.6 oz pure alcohol) hardly any for the last month B1300 Health Literacy Answer Date Recor ded How often do you need to hav e someone help you when you read instructions, pamphlets, or other written material from your doctor or pharmacy? Never 05/04/2024 [facility] Utilities Answer Date Recorded In the [...] money to buy more. Never true 05/04/20 Within the past 12 months, t he [...] any time in the past 12 m [facility], were you homeless or living in a group home (including now)? No 05/04/2024 Sex and Gender Information Value Date Recorded Sex Assigned at Not on file Gender Identity Not on file Sexual Orientation Not on file documented as of this encounter Progress Notes * Albania Chahal MD - 05/12/2024 11:11 AM EDT Images from the original note were not included. No actionable mutation was found in liquid biopsy: [id number], TP53, ANNIKA. Pending PD-L1 status report. Albania Milian M.D. Medical Oncology Pager # [phone] 05/12/24, 11:11 AM [facility] [place] [address] documented in this encounter Plan of Treatment Upcoming Encounters Date Type Department Care Team (Late st Contact Info) Description 05/23/2024 9:30 AM EST Infusion Hematology Oncology at [address] [phone] 05/30/2024 9:00 AM EST Infusion Hematology Oncology at [address] [address] 06/05/2024 9:15 AM EST Laboratory Appointment Lab at [facility] [place] [address] [place] [address] 06/05/2024 10:30 AM EST Office Visit Hematology [place] [address] Albania Chahal MD [facility] HEMATOLOGY[place] [address] 06/05/2024 1:00 PM EST Appointment Hematology [place] [address] 06/26/2024 9:15 AM EST Laboratory Appointment Lab at [facility] Hematology Oncology [address] [place] [address] 06/26/2024 10:30 AM EST Office Visit [place]ematology [place] [address] Albania Chahal MD [facility] HEMATOLOGY[place] [address] 06/26/2024 12:00 PM EST Appointment Hematology [place] [address] 07/17/2024 9:30 AM EST Laboratory Appointment Lab at [facility] Hematology Oncology [address] [place] [address] 07/17/2024 10:30 AM EST Office Visit Hematology [place] [address] Albania Chahal MD [facility] [address] CARTWRIGHT/[place] [address] 07/17/2024 12:00 PM EST Appointment Hematology [place] [address] documented as of this encounter Visit Diagnoses Not on filedocumented in this encounter Care Teams Inside Sales Relationship Specialty Start Date End Date America Caro MD [address] [place] [address] PCP - General Family Medicine 03/31/24 documented as of this encounter
--- OUTSIDE RECORDS SUMMARY | 2024-05-23 01:22 | XMS_ITS | Encounter Summary ---
Author Organization [facility] [place] [address] Care Team Providers Care Fruit Trimmer Name Role Phone America Caro MD Primary Care Provider [phone] Encounter Details Date Type Department Care Team (Late st Contact Info) Description 05/15/2024 Notes Only Hematology [place] [address] Fletcher Alvarado RN Social History Tobacco Use Types Packs/Day Years Used Date Smoking Tobacco: Former Pipe Passive Smoke Exposure: Past Smokeless Tobacco: Never Comments:Smoke pipe for 10 y ears since 13 years old, Does still smoke pot but is slowing down. Passive Exposure Comments:Second hand smoke since 4757-7462 Alcohol Use Standard Drinks/Week Comments Yes 14 (1 standard drink = 0.6 oz pure alcohol) hardly any for the last month B1300 Health Literacy Answer Date Recor ded How often do you need to hav e someone help you when you read instructions, pamphlets, or other written material from your doctor or pharmacy? Never 05/04/2024 [facility] Utilities Answer Date Recorded In the [...] were you homeless or living in a detention (including now)? No 05/04/2024 Sex and Gender Information Value Date Recorded Sex Assigned at Not on file Gender Identity Not on file Sexual Orientation Not on file documented as of this encounter Progress Notes * Fletcher Alvarado RN - 05/15/2024 1:04 PM EDT Documentation of Informed Consent to Participate in Clinical Trial STUDY [id number]: Immune profiling for cancer immunotherapy response Patient was seen in Hematology-Oncology clinic on 05/15/24. Patient was offered the opportunity to participate in study [id number]. Study protocol reviewed with patient, including description of study purpose, potential risks and benefits, voluntary nature or participation, and requirements of participation. Discussed confidentiality of patient???s private health information as specified in consent form. Patient informed that he may discontinue study involvement at any time; informed that declining to participate or discontinuing study treatment will not compromise his access to treatment options or care at this institution. Mr. Javier was given written informed consent form to read and review. He was given adequate time toreview all information, and to ask questions and review concerns, all of which were answered to hissatisfaction. Patient verbalized understanding of this protocol and consented for lab draws on study [id number]. Consent form was signed and dated by patient and myself. Written informed consent was obtained prior to any study procedures being conducted. A copy of the signed consent form was given to patient. Original signed IC form added to study binder. documented in this encounter Plan of Treatment Upcoming Encounters Date Type Department Care Team (Late st Contact Info) Description 05/23/2024 9:30 AM EST Infusion Hematology Oncology at [address] [address] 05/30/2024 9:00 AM EST Infusion Hematology Oncology at [address] [address] 06/05/2024 9:15 AM EST Laboratory Appointment Lab at [facility] Hematology Oncology [address] [place] [address] 06/05/2024 10:30 AM EST Office Visit Hematology [place] [address] Albania Chahal MD [facility] [place] [address] 06/05/2024 1:00 PM EST Appointment Hematology [place] [address] 06/26/2024 9:15 AM EST Laboratory Appointment Lab at [facility] Hematology Oncology [address] [place] [address] 06/26/2024 10:30 AM EST Office Visit Hematology [place] [address] Albania Chahal MD [facility] HEMATOLOGY[place] [address] 06/26/2024 12:00 PM EST Appointment Hematology [place] [address] 07/17/2024 9:30 AM EST Laboratory Appointment Lab at [facility] Hematology Oncology [address] [place] [address] 07/17/2024 10:30 AM EST Office Visit Hematology [place] [address] Albania Chahal MD [facility] [place]OLOG[place] [address] 07/17/2024 12:00 PM EST Appointment Hematology [place] [address] documented as of this encounter Visit Diagnoses Not on filedocumented in this encounter Care Teams Fruit Trimmer Relationship Specialty Start Date End Date America Caro MD [address] [place] [address] PCP - General Family Medicine 03/31/24 documented as of this encounter
--- OUTSIDE RECORDS SUMMARY | 2024-05-23 01:22 | XMS_ITS | Encounter Summary ---
Author Organization [facility] Address [facility] [place] [address] Care Team Providers Care Pharmacognosy Teacher Name Role Phone America Caro MD Primary Care Provider [phone] Encounter Details Date Type Department Care Team (Late st Contact Info) Description 05/20/2024 Orders Only [place] [address] Albania Chahal MD [facility] [address] [place]ATOLOGY/[place] [address] Non-small cell cancer of left lung Social History Tobacco Use Types Packs/Day Years Used Date Smoking Tobacco: Former Pipe Passive Smoke Exposure: Past Smokeless Tobacco: Never Comments:Smoke pipe for 10 y ears since 13 years old, Does still smoke pot but is slowing down. Passive Exposure Comments:Second hand smoke since 2918-4508 Alcohol Use Standard Drinks/Week Comments Yes 14 (1 standard drink = 0.6 oz pure alcohol) hardly any for the last month B1300 Health Literacy Answer Date Recor ded How often do you need to hav e someone help you when you read instructions, pamphlets, or other written material from your doctor or pharmacy? Never 05/04/2024 [facility] Utilities Answer Date Recorded In the [...] any time in the past 12 m [facility], were you homeless or living in a detention (including now)? No 05/04/2024 Sex and Gender Information Value Date Recorded Sex Assigned at Not on file Gender Identity Not on file Sexual Orientation Not on file documented as of this encounter Progress Notes * Albania Chahal MD - 05/20/2024 9:40 AM EST I called Mr. Javier to let him know that I have added the additional stains suggested by the oncologist from [facility]. I have received the report and will be discussing in detailed during our next visit. documented in this encounter Plan of Treatment Upcoming Encounters Date Type Department Care Team (Late st Contact Info) Description 05/23/2024 9:30 AM EST Infusion Hematology Oncology at [address] [address] 05/30/2024 9:00 AM EST Infusion Hematology Oncology at [address] [address] 06/05/2024 9:15 AM EST Laboratory Appointment Lab at [facility] Hematology Oncology [address] [place] [address] 06/05/2024 10:30 AM EST Office Visit [place] [address] Albania Chahal MD [facility] HEMATOLOGY/[place] [address] 06/05/2024 1:00 PM EST Appointment Hematology [place] [address] 06/26/2024 9:15 AM EST Laboratory Appointment Lab at [facility] Hematology Oncology [address] [place] [address] 06/26/2024 10:30 AM EST Office Visit Hematology [place] [address] Albania Chahal MD [facility] HEMATOLOGY[place] [address] 06/26/2024 12:00 PM EST Appointment Hematology [place] [address] 07/17/2024 9:30 AM EST Laboratory Appointment Lab at [facility] Hematology Oncology [address] [place] [address] 07/17/2024 10:30 AM EST Office Visit [place] [address] Albania Chahal MD [facility] DR CARTWRIGHT/[place] [address] 07/17/2024 12:00 PM EST Appointment [place] [address] Scheduled Orders Name Type Priority Associated Diagnoses Orde r Schedule Anatomical Pathology Additional Testing Pathology/Cytol ogy Routine Non-small cell cancer of left lung Ordered: 05/20/2024 documented as of this encounter Visit Diagnoses Diagnosis Non-small cell cancer of left lung documented in this encounter Care Teams Pharmacognosy Teacher Relationship Specialty Start Date End Date America Caro MD [address] [place] [address] PCP - General Family Medicine 03/31/24 documented as of this encounter
--- OUTSIDE RECORDS SUMMARY | 2024-05-23 01:22 | XMS_ITS | Encounter Summary ---
[place] [address] Care Team Providers Care Manager Battery Name Role Phone America Caro MD Primary Care Provider [phone] Encounter Details Date Type Department Care Team (Late st Contact Info) Description 05/09/2024 Notes [place] [address] Anna Reed Social History Tobacco Use Types Packs/Day Years Used Date Smoking Tobacco: Former Pipe Passive Smoke Exposure: Past Smokeless Tobacco: Never Comments:Smoke pipe for 10 y ears since 13 years old, Does still smoke pot but is slowing down. Passive Exposure Comments:Second hand smoke since 3978-9651 Alcohol Use Standard Drinks/Week Comments Yes 14 (1 standard drink = 0.6 oz pure alcohol) hardly any for the last month B1300 Health Literacy Answer Date Recor ded How often do you need to hav e someone help you when you read instructions, pamphlets, or other written material from your doctor or pharmacy? Never 05/04/2024 [facility] Utilities Answer Date Recorded In the past [...] any time in the past 12 m [facility], were you homeless or living in a longterm (including now)? No 05/04/2024 Sex and Gender Information Value Date Recorded Sex Assigned at Not on file Gender Identity Not on file Sexual Orientation Not on file documented as of this encounter Progress Notes * Anna Reed - 05/09/2024 10:48 AM EDTSumtabitha: Financial Counselor Mr. Javier has been referred to me by Filemon Millan RN, on May 08, 2025. I contacted the patient today and went over Medicare and [employer] Federal supplement insurance benefits. The patient understood that Medicare will pay 80% after the annual deductible has been met and that [employer] will pay the reminder 20% as long as the [id number] maximum has been met. The patient was also advised that [employer] has previously done away with the [id number] maximum for ret iree patients. Financial Assistance was offered to the patient, but at this time, the patient declined. The patient did not have any questions or concerns at this time. My contact information was given to the patient should he need financial assistance or have any questions. The patient was made aware that I will check on him in a month. documented in this encounter Plan of Treatment Upcoming Encounters Date Type Department Care Team (Late st Contact Info) Description 05/23/2024 9:30 AM EST Infusion Hematology Oncology at [address] [address] 05/30/2024 9:00 AM EST Infusion Hematology Oncology at [address] [address] 06/05/2024 9:15 AM EST Laboratory Appointment Lab at [facility] [place]ematology Oncology [address] [place] [address] 06/05/2024 10:30 AM EST Office Visit Hematology [place] [address] Albania Chahal MD [facility] HEMATOLOGY[place] [address] 06/05/2024 1:00 PM EST Appointment Hematology [place] [address] 06/26/2024 9:15 AM EST Laboratory Appointment Lab at [facility] Hematology Oncology [address] [place] [address] 06/26/2024 10:30 AM EST Office Visit Hematology [place] [address] Albania Chahal MD [facility] DR CARTWRIGHT/[place] [address] 06/26/2024 12:00 PM EST Appointment Hematology [place] [address] 07/17/2024 9:30 AM EST Laboratory Appointment Lab at [facility] Hematology Oncology [address] [place] [address] 07/17/2024 10:30 AM EST Office Visit Hematology [place] [address] Albania Chahal MD [facility] HEMATOLOGY/[place] [address] 07/17/2024 12:00 PM EST Appointment Hematology [place] [address] documented as of this encounter Visit Diagnoses Not on filedocumented in this encounter Care Teams Manager Battery Relationship Specialty Start Date End Date America Caro MD [address] [place] [address] PCP - General Family Medicine 03/31/24 documented as of this encounter
--- OUTSIDE RECORDS SUMMARY | 2024-05-23 01:22 | XMS_ITS | Encounter Summary ---
Author Organization Counts Include [facility] Address [facility] [place] [address] Care Team Providers Care Burial Vault Deliverer And Installer Name Role Phone America Caro MD Primary Care Provider [phone] Encounter Details Date Type Department Care Team (Latest Contact Info) Description 05/15/2024 Travel Social History Tobacco Use Types Packs/Day Years Used Date Smoking Tobacco: Former Pipe Passive Smoke Exposure: Past Smokeless Tobacco: Never Comments:Smoke pipe for 10 y ears since 13 years old, Does still smoke pot but is slowing down. Passive Exposure Comments:Second hand smoke since [id number] Alcohol Use Standard Drinks/Week Comments Yes 14 (1 standard drink = 0.6 oz pure alcohol) hardly any for the last month B1300 Health Literacy Answer Date Recor ded How often do you need to hav e someone help you when you read instructions, pamphlets, or other written material from your doctor or pharmacy? Never 05/04/2024 [facility] Utilities Answer Date Recorded In the past 12 months has [employer], gas, oil, or water [employer] threatened to shut off services in your [...] any time in the past 12 m [facility], were you homeless or living in a custodial (including now)? No 05/04/2024 Sex and Gender Information Value Date Recorded Sex Assigned at Not on file Gender Identity Not on file Sexual Orientation Not on file documented as of this encounter Plan of Treatment Upcoming Encounters Date Type Department Care Team (Late st Contact Info) Description 05/23/2024 9:30 AM EST Infusion Hematology Oncology at [address] [address] 05/30/2024 9:00 AM EST Infusion Hematology Oncology at [address] [address] 06/05/2024 9:15 AM EST Laboratory Appointment Lab at [facility] Hematology Oncology [address] [place] [address] 06/05/2024 10:30 AM EST Office Visit Hematology [place] [address] Albania Chahal MD [facility] HEMATOLOGY/[place] [address] 06/05/2024 1:00 PM EST Appointment Hematology [place] [address] 06/26/2024 9:15 AM EST Laboratory Appointment Lab at [facility] Hematology Oncology [address] [place] [address] 06/26/2024 10:30 AM EST Office Visit Hematology [place] [address] Albania Chahal MD [facility] HEMATOLOGY[place] [address] 06/26/2024 12:00 PM EST Appointment Hematology [place] [address] 07/17/2024 9:30 AM EST Laboratory Appointment Lab at [facility] Hematology Oncology [address] [place] [address] 07/17/2024 10:30 AM EST Office Visit Hematology [place] [address] Albania Chahal MD [facility] HEMATOLOGY[place] [address] 07/17/2024 12:00 PM EST Appointment Hematology [place] [address] documented as of this encounter Visit Diagnoses Not on filedocumented in this encounter Care Teams Burial Vault Deliverer And Installer Relationship Specialty Start Date End Date America Caro MD [address] [place] [address] PCP - General Family Medicine 03/31/24 documented as of this encounter
--- OUTSIDE RECORDS SUMMARY | 2024-05-23 01:22 | XMS_ITS | Encounter Summary ---
Author Organization [facility] Address [facility] [place] [address] Care Team Providers Care Complaint Manager Name Role Phone America Caro MD Primary Care Provider [phone] Reason for Visit * Reason Comments Follow-up Encounter Details Date Type Department Care Team (Late st Contact Info) Description 05/15/2024 9:00 AM EDT Office Visit Hematology [place] [address] Albania Chahal MD [facility] HEMATOLOGY/[place] [address] Non-small cell cancer of right lung Social History Tobacco Use Types Packs/Day Years Used Date Smoking Tobacco: Former Pipe Passive Smoke Exposure: Past Smokeless Tobacco: Never Comments:Smoke pipe for 10 y ears since 13 years old, Does still smoke pot but is slowing down. Passive Exposure Comments:Second hand smoke since 3767-2754 Alcohol Use Standard Drinks/Week Comments Yes 14 (1 standard drink = 0.6 oz pure alcohol) hardly any for the last month B1300 Health Literacy Answer Date Recor ded How often do you need to hav e someone help you when you read instructions, pamphlets, or other written material from your doctor or pharmacy? Never 05/04/2024 [facility] Utilities Answer Date Recorded In the [...] any time in the past 12 m [facility], were you homeless or living in a group home (including now)? No 05/04/2024 Sex and Gender Information Value Date Recorded Sex Assigned at Not on file Gender Identity Not on file Sexual Orientation Not on file documented as of this encounter Last Filed Vital Signs Vital Sign Reading [...] Mass Index 23.63 05/15/2024 9:08 AM EDT documented in this encounter Progress Notes * Albania Chahal MD - 05/15/2024 9:00 AM EDT Images from the original note were not included. FOLLOW-UP THORACIC ONCOLOGY VISIT Reason for consult: New diagnosis of squamous cell carcinoma Referred by: Dr. Andrea Freeman HISTORY OF PRESENT ILLNESS: Henry Javier is a 68 y.o. with new diagnosis of squamous cell carcinoma of the lung. ONCOLOGY HISTORY: Mr. Javier first reported chest pain in April 2023. His initial cardiac evaluation and chest X-raywere normal. However, the pain persisted, leading his primary care physician to order a repeat chest X-ray and treadmill stress test in October 2023, which also came back normal. He was treated empirically with a one-month course of proton pump inhibitors for suspected GERD. Subsequently, he underwent a HIDA scan and a cholecystectomy on 02/19/2024, which resulted in some improvement. Two weeks post-surgery, he experienced a recurrence of symptoms, now including bilateral supraclavicular pain. On 03/28/2024, a CT scan of the chest conducted in the ED revealed a mediastinal mass, multiple pulmonary nodules, and a large pericardial effusion. An echocardiogram showed moderate pericardial effusion without signs of tamponade, and his left ventricular systolic function was normal, estimated at 60%. On 04/11/2024, Mr. Javier had a PET CT scan that showed a large FDG-avid anterior mediastinal mass with multiple lung nodules, pericardial thickening, and a significant pericardial effusion, raising high suspicion for pericardial metastases. The scan also indicated metastases to the right supraclavicular, right paratracheal, subcarinal, and bilateral hilar lymph nodes, along with osseous metastases in the left sacral ala and likely in the right anterolateral ribs 3 and 4. Additionally, new moderate left and small right pleural effusions were noted. He underwent a left- sided thoracentesis on April 16, 2024, which yielded negative results for malignancy, revealing predominantly reactive mesothelial cells, macrophages, neutrophils, and lymphocytes. A total of 750 mL of serosanguinous pleural fluid was successfully removed. Given these findings, he proceeded with bronchoscopy and EBUS on April 24, 2024, without complications. 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 TTF-1 negative, p40 positive, 16 positive, Ki-67 positive more than 70%-, chromogranin A rare, weak positive, synaptophysin rare, weak positive. Stations 4R, and 7 lymph nodes were positive for malignancy. Station 11R was negative for malignancy. Brain MRI (05/07/2024) negative for disease. Henry Javier comes for the first time to thoracic oncology clinic on 05/06/2024. 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 Station 11R negative FDG-avid anterior mediastinal mass with multiple lung nodules, pericardial thickening with pericardial effusion, right supraclavicular, right paratracheal, subcarinal, and bilateral hilar lymph nodes, along with osseous metastases in the left sacral ala and likely in the right anterolateral ribs 3 and 4 Moderate left pleural effusions s/p thoracentesis on 04/16/2024 (750 cc) PD-L1 level TPS 10% Molecular panel pending (ordered on 05/05/2024) Liquid biopsy (05/06/2024) PIK3CA, TP53, ANNIKA CURRENT TREATMENT: 05/15/2024 C1D1 Carboplatin, Abraxane, pembrolizumab Interval history: Mr. Javier comes for consideration of his first infusion treatment. There are not major changes since his last visit. He continues active, walking his dog around his house. His left-sided chest pain remains stable with NSAIDs and Tylenol; while he still experiences some pain, it is better controlledfollowing treatment for his pericarditis. This is improved. His appetite has decreased, and his weig ht is stable, since last visit, at 136 pounds. He often feels tired and has been taking more naps than usual, but he can still care for himself and complete his daily activities. He has experienced constipation over the last few days but denies any diarrhea, abdominal pain, nausea, or vomiting. He reports no headaches, visual changes, tingling, or numbness. He denies fever, chills. REVIEW OF SYSTEMS: As per HPI. A 12 point [id number] was obtained. Symptoms as explained in the HPI. PAST MEDICAL HISTORY: Pericarditis diagnosed in March 2024 treated with colchicine, ibuprofen and Tylenol Carpal tunnel syndrome PAST SURGICAL HISTORY: Tonsillectomy and appendectomy at early age Cholecystectomy in 2023 MEDICATIONS: Current Outpatient Medications on File Prior to Visit Medication Sig Dispense Refill furosemide (Lasix) 20 mg tablet Take 20 mg by mouth daily. cholecalciferol, Vitamin D3, 25 mcg (1,000 unit) Capsule take 1 capsule po qd. colchicine (Colcrys) 0.6 mg tablet Take 1 tablet by mouth Daily at Noon. ibuprofen (Advil) 200 mg tablet Take 200 mg by mouth every 6 hours as needed for Pain. acetaminophen (Tylenol) 325 mg tablet Take 650 mg by mouth every 4 hours as needed for Pain. No current facility-administered medications on file prior to visit. ALLERGIES: No Known Allergies FAMILY HISTORY: His sister was diagnosed with advanced lung cancer at age 55 and ultimately from the disease (smoker). His half-sister in her 60s from a brain tumor. His niece was diagnosed with esophageal cancer at age 62 (smoker). SOCIAL HISTORY Personal: Single. He has a lot of friends, and family support particularly from his nephew, and nephew's . 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 Alcohol: He drank heavily for a long time until about six months ago, consuming about half a bottleof wine each day. He likes to collect wine. Tobacco: Formed pipe smoker from ages [age] years old (1-2 pipes a day). He has smoked marijuana regularly, stating that he used it in heavy quantities at some point in the past. He has never smoked tobacco. PHYSICAL EXAM Patient Vitals for the past 24 hrs: Temp Pulse Resp BP SpO2 05/15/24 0908 36.6 ??C (97.9 ??F) 67 17 119/77 98 % GENERAL: Henry Javier appears well and is in no acute distress. ENT: Oral pharynx clear. NECK: Supple without adenopathy. CARDIAC: Regular rate and rhythm without S3,S4 or murmurs. LUNGS: Diminished breath sounds. No wheezing or coarse sounds. Good entrance of air in the bases! ABDOMEN: Soft and non-tender. EXTREMITIES: No edema. SKIN: No bruises or petechiae. NEUROLOGICAL: Alert and oriented to person, place and time. MUSCULOSKELETAL: No spinal or chest wall tenderness. LABORATORY STUDIES: CBC, anemia with Hb at 12.0, and platelet count at 628K CMP SHAWNA increased at 225, AST 41 LDH stable at 270 (elevated) TSH high at 6.83, and free T4 normal at 1.08 RADIOLOGY STUDIES REVIEWED: CT scan of the chest 05/09/2024: Multiple pulmonary nodules with increased size of the right upper lobe nodule and anterior mediastinal mass. Brain MRI 05/07/2024: IMPRESSION 1. No acute infarction, mass or mass effect. 2. No abnormal enhancement. 3. No evidence of metastatic disease. PET CT scan: 1. Large FDG avid anterior mediastinal mass, highly suspicious for malignancy. 2. FDG avid pericardial thickening with large pericardial effusion, highly suspicious for pericardial metastases, with a reactive versus malignant pericardial effusion. 3. Right supraclavicular, right paratracheal, subcarinal, and bilateral hilar erica metastases. 4. Multiple FDG avid subcentimeter lung nodules, highly suspicious for pulmonary metastases. 5. Osseous metastases in the left sacral ala and likely also in right anterolateral ribs 3 and 4. 6. New moderate left and small right pleural effusions. ASSESSMENT: Henry Javier is a 68 y.o. 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 Station 11R negative FDG-avid anterior mediastinal mass with multiple lung nodules, pericardial thickening with pericardial effusion, right supraclavicular, right paratracheal, subcarinal, and bilateral hilar lymph nodes, along with osseous metastases in the left sacral ala and likely in the right anterolateral ribs 3 and 4 Moderate left pleural effusions s/p thoracentesis on 04/16/2024 (750 cc) Brain MRI negative for disease PD-L1 level TPS 10% Molecular panel pending (ordered on 05/05/2024) Liquid biopsy (05/06/2024) PIK3CA, TP53, ANNIKA I discussed with the patient the diagnosis, pathology results, imaging findings, and tumor staging,including how these factors impact prognosis and treatment options. In brief, Mr. Javier initially presented with chest pain, prompting further investigation that ultimately revealed pericarditis, along with a large FDG-avid mediastinal mass, multiple pulmonary nodules, lymph nodes, and osseous lesions indicative of metastatic disease. His initial symptoms appear to be more closely related to the pericarditis rather than the lung cancer. I question whether the FDG avidity observed in the heart reflects acute inflammation or true metastatic disease to the pericardium. Regardless, he was diagnosed with squamous cell carcinoma of the lung, affecting both lungs, mediastinal lymph nodes, ribs, and sacrum, leading to a classification of stage IV disease. 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 Basaloid squamous cell carcinoma is a rare histological variant of lung cancer, and currently, treatment for basaloid squamous cell carcinoma follows the conventional guidelines for squamous cell carcinoma. I outline that the goals of the treatment is to control disease while maintaining an acceptable quality of life. I mentioned that systemic treatment can help achieve these goals, but it is crucial to consider both the benefits and limitations of each treatment option. Since his last visit, we learned that his tumor does not harbor an actionable mutation and its PD-L1 status is 10%. His brain MRI did not show intracranial disease, and his updated CT scan showed increased size of the right upper lobe and anterior mediastinal mass, which is not surprising. Considering this information, we will proceed with [id number] with carboplatin, Abraxane, and pembrolizumab. Overall, Mr. Javier has a good performance status (ECOG of 1) and appears well-suited for cancer treatment. I briefly went over the logistics of cancer treatment. We reviewed the general side effects of cancer treatment including immune-related side effects. I noted that he has anemia, and depending on treatment response, we might keep treatment for 2 weeks and 1 week off. A balance between side effects and benefits from treatment must be kept. I reviewed the potential risks of chemotherapy and emphasized the importance of considering these alongside the patient???s individual goals and preferences for quality of life. I noted that we will meet regularly to check for toxicities, with physical exam and blood work-up. We plan a staging CT scan after 2 cycles of treatment. If he develops a side effect, we can treat with symptomatic measures or dose-reduced her medication without losing efficacy. I also discussed prognosis. In anticipation of his cancer treatment, I recommend he keeps actively physically and optimizing his nutrition. He has a good support from friends and his nephew, who is here with him today. Other: Left-side pleural effusion, stable He underwent thoracentesis on 04/16/2024, s/p [address] Freeman performed the procedure. No indication for immediate procedure now. His breathing is stable today. Pericarditis with large pleural effusion, stable He was found with large pericardial effusion, treated with colchicine, ibuprofen and Tylenol. His pain has improved but still have some residual pain. PET CT showed pericardial thickening which couldrepresent pericarditis vs malignancy. ECHo with normal EF of 60%. Cardiology on board. Bone mets We will start denosumab in his next cycle every 3 weeks. He had a dental cleaning 2-3 weeks ago. There are not over contraindication for this. He agrees with the plan. Pharmacy will provide teaching today. RECOMMENDATIONS: He is okay to proceed with C1D1 of carboplatin, Abraxane, and pembrolizumab, with infusions scheduled for Day 1 at [facility] and standalone infusions on Days [address] [facility]. He has anemia and upon treatment response, I would consider to dose-reducing accordingly. Another option would be to proceed with 2 weeks of treatment and 1 week off. Bone metastasis: Plan to start denosumab 120 mg every 3 weeks. Avoid invasive dental procedures. Last dental cleaning 2-3 weeks ago. There is no need for a therapeutic thoracentesis at this time, as his breathing is stable during this visit. Continue treatment for pericarditis as directed by the supervisor finishing room. [facility] I spent 30 minutes in the total care of this patient including review of records and imaging, [id number] consultation and counseling, interpretation of studies, coordination of care and documentation. Albania Milian M.D. Thoracic Oncology Pager # [phone] 05/15/24, 9:26 AM [facility] documented in this encounter Plan of Treatment Upcoming Encounters Date Type Department Care Team (Late st Contact Info) Description 05/23/2024 9:30 AM EST Infusion Hematology Oncology at [address] [address] 05/30/2024 9:00 AM EST Infusion Hematology Oncology at [address] [address] 06/05/2024 9:15 AM EST Laboratory Appointment Lab at [facility] Hematology Oncology [address] [place] [address] 06/05/2024 10:30 AM EST Office Visit Hematology [place] [address] Albania Chahal MD [facility] HEMATOLOGY/[place] [address] 06/05/2024 1:00 PM EST Appointment Hematology [place] [address] 06/26/2024 9:15 AM EST Laboratory Appointment Lab at [facility] Hematology Oncology [address] [place] [address] 06/26/2024 10:30 AM EST Office Visit Hematology [place] [address] Albania Chahal MD [facility] DR [facility]/[place] [address] 06/26/2024 12:00 PM EST Appointment Hematology [place] [address] 07/17/2024 9:30 AM EST Laboratory Appointment Lab at [facility] Hematology Oncology [address] [place] [address] 07/17/2024 10:30 AM EST Office Visit Hematology [place] [address] Albania Chahal MD [facility] HEMATOLOGY/[place] [address] 07/17/2024 12:00 PM EST Appointment Hematology [place] [address] documented as of this encounter Visit Diagnoses Diagnosis Non-small cell cancer of right lung documented in this encounter Care Teams Complaint Manager Relationship Specialty Start Date End Date America Caro MD [address] [place] [address] PCP - General Family Medicine 03/31/24 documented as of this encounter
--- OUTSIDE RECORDS SUMMARY | 2024-05-23 01:22 | XMS_ITS | Encounter Summary ---
Author Organization Formerly [facility] [place] [address] Care Team Providers Care Chisel Mortiser Operator Name Role Phone America Caro MD Primary Care Provider [phone] Encounter Details Date Type Department Care Team (Late st Contact Info) Description 05/09/2024 4:10 PM EDT Ancillary Procedure Radiology Library at [facility] [place] [phone] America Caro MD [address] [place] [address] Social History Tobacco Use Types Packs/Day Years Used Date Smoking Tobacco: Former Pipe Passive Smoke Exposure: Past Smokeless Tobacco: Never Comments:Smoke pipe for 10 y ears since 13 years old, Does still smoke pot but is slowing down. Passive Exposure Comments:Second hand smoke since 1859-7091 Alcohol Use Standard Drinks/Week Comments Yes 14 (1 standard drink = 0.6 oz pure alcohol) hardly any for the last month B1300 Health Literacy Answer Date Recor ded How often do you need to hav e someone help you when you read instructions, pamphlets, or other written material from your doctor or pharmacy? Never 05/04/2024 [facility] Utilities Answer Date Recorded In the past 12 months has e electric, gas, oil, or water [employer] threatened to shut off services in your [...] any time in the past 12 m [facility], were you homeless or living in a halfway (including now)? No 05/04/2024 Sex and Gender Information Value Date Recorded Sex Assigned at Not on file Gender Identity Not on file Sexual Orientation Not on file documented as of this encounter Plan of Treatment Upcoming Encounters Date Type Department Care Team (Late st Contact Info) Description 05/23/2024 9:30 AM EST Infusion Hematology Oncology at [address] [address] 05/30/2024 9:00 AM EST Infusion Hematology Oncology at [address] [address] 06/05/2024 9:15 AM EST Laboratory Appointment Lab at [facility] Hematology Oncology [address] [place] [address] 06/05/2024 10:30 AM EST Office Visit [place] [address] Albania Chahal MD [facility] [place]EMATOLOGY/[place] [address] 06/05/2024 1:00 PM EST Appointment Hematology [place] [address] 06/26/2024 9:15 AM EST Laboratory Appointment Lab at [facility] Hematology [address] [address] 06/26/2024 10:30 AM EST Office Visit [place]ology [place] [address] Albania Chahal MD [facility] HEMATOLOGY/[place] [address] 06/26/2024 12:00 PM EST Appointment Hematology [place] [address] 07/17/2024 9:30 AM EST Laboratory Appointment Lab at [facility] Hematology [address] [address] 07/17/2024 10:30 AM EST Office Visit [place]ematology [place] [address] Albania Chahal MD [facility] HEMATOLOGY[place] [address] 07/17/2024 12:00 PM EST Appointment [place]ematology [place] [address] documented as of this encounter Procedures Procedure Name Priority Date/Time Associated Diagnosis Comments FILM LIBRARY STORAGE ONLY CT CHEST Routine 05/09/2024 4:08 PM EDT documented in this encounter Results * Film Library- Storage Only CT Chest (05/09/2024 4:08 PM EDT) Narrative [facility] - 05/09/2024 4:08 PM EDT This exam is auto-finalizing. It's purpose is for storage only. America Caro MD IMG FILM LIBRARY ORD ERABLES [facility] [place], [place] documented in this encounter Visit Diagnoses Not on filedocumented in this encounter Care Teams Chisel Mortiser Operator Relationship Specialty Start Date End Date America Caro MD [address] [place] [address] PCP - General Family Medicine 03/31/24 documented as of this encounter
--- OUTSIDE RECORDS SUMMARY | 2024-05-23 01:22 | XMS_ITS | Encounter Summary ---
[place] [address] Care Team Providers Care Assembler Final Name Role Phone America aCro MD Primary Care Provider [phone] Encounter Details Date Type Department Care Team (Late st Contact Info) Description 05/09/2024 Patient Outreach Hematology [place] [phone] Filemon Millan, RN Social History Tobacco Use Types Packs/Day Years Used Date Smoking Tobacco: Former Pipe Passive Smoke Exposure: Past Smokeless Tobacco: Never Comments:Smoke pipe for 10 y ears since 13 years old, Does still smoke pot but is slowing down. Passive Exposure Comments:Second hand smoke since 9003-3623 Alcohol Use Standard Drinks/Week Comments Yes 14 [...] any time in the past 12 m [facility], were you homeless or living in a senior living (including now)? No 05/04/2024 Sex and Gender Information Value Date Recorded Sex Assigned at Not on file Gender Identity Not on file Sexual Orientation Not on file documented as of this encounter Progress Notes * Filemon Millan RN - 05/09/2024 10:27 AM EDT TC to patient to discuss distress screening. He is having pain that is interrupting sleep. He did discuss this discomfort with Dr. Milian while he was here. He is taking tylenol, ibuprofen, and colchicine with some relief. Dr. Milian believes that the pain is related to his pericarditis vs cancer. Patient will contact his link knitting machine operator, Dr. Zavala, at [facility] to discuss. He has an appointment scheduled for early June, but will work on moving that up and knows to call manager operations for assistance if he is unable to do so. documented in this encounter Plan of Treatment Upcoming Encounters Date Type Department Care Team (Late st Contact Info) Description 05/23/2024 9:30 AM EST Infusion Hematology Oncology at [address] [address] 05/30/2024 9:00 AM EST Infusion Hematology Oncology at [address] [address] 06/05/2024 9:15 AM EST Laboratory Appointment Lab at [facility] Hematology Oncology [address] [place] [address] 06/05/2024 10:30 AM EST Office Visit Hematology [place] [address] Albania Chahal MD [facility] HEMATOLOGY/[place] [address] 06/05/2024 1:00 PM EST Appointment Hematology [place] [address] 06/26/2024 9:15 AM EST Laboratory Appointment Lab at [facility] Hematology Oncology [address] [place] [address] 06/26/2024 10:30 AM EST Office Visit Hematology [place] [address] Albania Chahal MD [facility] HEMATOLOGY[place] [address] 06/26/2024 12:00 PM EST Appointment Hematology [place] [address] 07/17/2024 9:30 AM EST Laboratory Appointment Lab at [facility] Hematology Oncology [address] [place] [address] 07/17/2024 10:30 AM EST Office Visit Hematology [place] [address] Albania Chahal MD [facility] DR [place] [address] 07/17/2024 12:00 PM EST Appointment Hematology [place] [address] documented as of this encounter Visit Diagnoses Not on filedocumented in this encounter Care Teams Assembler Final Relationship Specialty Start Date End Date America Caro MD [address] [place] [address] PCP - General Family Medicine 03/31/24 documented as of this encounter
--- OUTSIDE RECORDS SUMMARY | 2024-05-23 01:22 | XMS_ITS | Encounter Summary ---
Author Organization [facility] [place] [address] Care Team Providers Care Commercial Real Estate Broker Name Role Phone America Caro MD Primary Care Provider [phone] Encounter Details Date Type Department Care Team (Late st Contact Info) Description 05/19/2024 Telephone Hematology [place] [address] Tia Becerra, RN Social History Tobacco Use Types Packs/Day Years Used Date Smoking Tobacco: Former Pipe Passive Smoke Exposure: Past Smokeless Tobacco: Never Comments:Smoke pipe for 10 y ears since 13 years old, Does still smoke pot but is slowing down. Passive Exposure Comments:Second hand smoke since 1150-2336 Alcohol Use Standard Drinks/Week Comments Yes 14 (1 standard drink = 0.6 oz pure alcohol) hardly any for the last month B1300 Health Literacy Answer Date Recor ded How often do you need to hav e someone help you when you read instructions, pamphlets, or other written material from your doctor or pharmacy? Never 05/04/2024 [facility] Utilities Answer Date Recorded In [...] time in the past 12 m [facility], were you homeless or living in a custodial (including now)? No 05/04/2024 Sex and Gender Information Value Date Recorded Sex Assigned at Not on file Gender Identity Not on file Sexual Orientation Not on file documented as of this encounter Miscellaneous Notes * Telephone Encounter - Tia Becerra RN - 05/19/2024 7:46 AM EST Request from provider: Please call the patient on Sunday to follow-up on him after his first infusion (check for toxicities for chemoIO). Chemotherapy Follow-up Call Placed call to patient to assess tolerance of first time chemotherapy treatment. Regimen received: Carbo/abraxane/pembro Date of treatment: 05/15/2024 Assessment: Symptom Present (yes[y]/no[n]/ stable[s] from baseline) Additional information/Assessment GI Nausea Mild nausea & took compazine with good effect Vomiting No Nausea medication Yes Compazine with good effect Tolerating diet Yes Maintaining fluid intake (indicate volume) Yes Bowel movements regular Yes Diarrhea Denies Mouth sores Denies General Pain (0 none - 10 high) No c/o pain or discomfort Using pain medications Fever Afebrile with not noted chills or rigors. Checking temperature, Neuro Level of fatigue (0 - 5) A little more fatigued than he would like to be. This has been an ongoing issue & not new. Still getting out & walking the dog. Falls No Numbness/tingling in arms/legs Denies Cognitive changes A/O x 3 Skin Skin changes Denies any rashes or itching Pinpoint red dots Other s/s of bleeding No IV site/VAD problems Musculoskeletal Joint swelling or tenderness Denies Arthralgias or myalgias Denies Voiding problems Voiding without difficulty Color and quality of urine Clear yellow urine Cardio-pulmonary Shortness of breath No increased shortness of breath or difficulty breathing. Chest pain Denies Swelling in legs Denies Calf pain or tenderness Denies Cough (productive/non-productive) Denies Psychosocial Coping Need prescription renewals Other issues : Had review with [facility]. ? Squamous cell cancer vs thymic cancer & different recommendations based in. Pt will send a copy of the report via [employer] & let him know I would get this to Dr. Milian. Education provided: Plan: Reinforced to patient/care-color buffer to call facility 05/02 with any new/worsening signs and symptoms orconcerns or questions. Phone number provided. Pt verbalized understanding and is in agreement with plan. documented in this encounter Plan of Treatment Upcoming Encounters Date Type Department Care Team (Late st Contact Info) Description 05/23/2024 9:30 AM EST Infusion Hematology Oncology at [address] [address] 05/30/2024 9:00 AM EST Infusion Hematology Oncology at [address] [address] 06/05/2024 9:15 AM EST Laboratory Appointment Lab at [facility] [place]ology Oncology [address] [place] [address] 06/05/2024 10:30 AM EST Office Visit Hematology [place] [address] Albania Chahal MD [facility] HEMATOLOGY/[place] [address] 06/05/2024 1:00 PM EST Appointment Hematology [place] [address] 06/26/2024 9:15 AM EST Laboratory Appointment Lab at [facility] Hematology [address] [address] 06/26/2024 10:30 AM EST Office Visit Hematology [place] [address] Albania Chahal MD [facility] HEMATOLOGY/[place] [address] 06/26/2024 12:00 PM EST Appointment Hematology [place] [address] 07/17/2024 9:30 AM EST Laboratory Appointment Lab at [address] [address] 07/17/2024 10:30 AM EST Office Visit Hematology [place] [address] Albania Chahal MD [facility] HEMATOLOGY[place] [address] 07/17/2024 12:00 PM EST Appointment Hematology [place] [address] documented as of this encounter Visit Diagnoses Not on filedocumented in this encounter Care Teams Commercial Real Estate Broker Relationship Specialty Start Date End Date America Caro MD [address] [place] [address] PCP - General Family Medicine 03/31/24 documented as of this encounter
--- OUTSIDE RECORDS SUMMARY | 2024-05-23 01:22 | XMS_ITS | Encounter Summary ---
Author Organization [facility] Address [facility] [place] [address] Care Team Providers Care Market Editor Name Role Phone America Caro MD Primary Care Provider Encounter Details Date Type Department Care Team (Late st Contact Info) Description 05/09/2024 Orders Only Hematology [place] [address] Albania Chahal MD [facility] DR HEMATOLOGY[place] [address] Non-small cell lung cancer, unspecified laterality Social History Tobacco Use Types Packs/Day Years Used Date Smoking Tobacco: Former Pipe Passive Smoke Exposure: Past Smokeless Tobacco: Never Comments:Smoke pipe for 10 y ears since 13 years old, Does still smoke pot but is slowing down. Passive Exposure Comments:Second hand smoke since 4333-9422 Alcohol Use Standard Drinks/Week Comments Yes 14 (1 standard drink = 0.6 oz pure alcohol) hardly any for the last month B1300 Health Literacy Answer Date Recor ded How often do you need to hav e someone help you when you read instructions, pamphlets, or other written material from your doctor or pharmacy? Never 05/04/2024 [facility] Utilities Answer Date Recorded In the past [...] any time in the past 12 m [facility], were you homeless or living in a skilled nursing (including now)? No 05/04/2024 Sex and Gender Information Value Date Recorded Sex Assigned at Not on file Gender Identity Not on file Sexual Orientation Not on file documented as of this encounter Plan of Treatment Upcoming Encounters Date Type Department Care Team (Late st Contact Info) Description 05/23/2024 9:30 AM EST Infusion Hematology Oncology at [address] [address] 05/30/2024 9:00 AM EST Infusion Hematology Oncology at [address] [address] 06/05/2024 9:15 AM EST Laboratory Appointment Lab at [facility] Hematology Oncology [address] [place] [address] 06/05/2024 10:30 AM EST Office Visit Hematology [place] [address] Albania Chahal MD [facility] HEMATOLOGY[place] [address] 06/05/2024 1:00 PM EST Appointment Hematology [place] [address] 06/26/2024 9:15 AM EST Laboratory Appointment Lab at [facility] Hematology [address] [address] 06/26/2024 10:30 AM EST Office Visit Hematology [place] [address] Albania Chahal MD [facility] HEMATOLOGY[place] [address] 06/26/2024 12:00 PM EST Appointment Hematology [place] [address] 07/17/2024 9:30 AM EST Laboratory Appointment Lab at [facility] Hematology Oncology [address] [place] [address] 07/17/2024 10:30 AM EST Office Visit [place]ematology [place] [address] Albania Chhaal MD [facility] HEMATOLOGY[place] [address] 07/17/2024 12:00 PM EST Appointment Hematology [place] [address] Pending Results Name Type Priority Associated Diagnoses Date /Time Miscellaneous Lab request Lab Routine Non-small cell lung cancer, unspecified laterality 05/15/2024 8:03 AM EDT Scheduled Orders Name Type Priority Associated Diagnoses Orde r Schedule Miscellaneous Lab request Lab Routine Non-small cell lung cancer, unspecified laterality Expected: 05/15/2024, Expires: 06/09/2024 documented as of this encounter Visit Diagnoses Diagnosis Non-small cell lung cancer, unspecified laterality documented in this encounter Care Teams Market Editor Relationship Specialty Start Date End Date America Caro MD [address] [place] [address] PCP - General Family Medicine 03/31/24 documented as of this encounter
--- OUTSIDE RECORDS SUMMARY | 2024-05-23 01:22 | XMS_ITS | Encounter Summary ---
Author Organization [facility] [place] [address] Care Team Providers Care Bacteriologist Dairy Name Role Phone America Caro MD Primary Care Provider [phone] Reason for Referral * Diagnostic Test (Routine) - Closed Specialty Diagnoses / Procedures Referred By Contac t Referred To Contact Radiology Diagnoses NSCLC of left lung Procedures MRI Brain wwo Contrast (Generic) Andrea Freeman MD [facility] [place] [address] [place] [address] Referral ID Status Reason Start Date Expiration Date V isits Requested Visits Authorized [id number] Closed Specialty Service Requested 05/01/2024 10/30/2025 1 1 Reason for Visit * Diagnostic Test (Routine) - Closed Specialty Diagnoses / Procedures Referred By Contac t Referred To Contact Radiology Diagnoses NSCLC of left lung Procedures MRI Brain wwo Contrast (Generic) Andrea Freeman MD [facility] [address] [place] [address] Referral ID Status Reason Start Date Expiration Date V isits Requested Visits Authorized [id number] Closed Specialty Service Requested 05/01/2024 10/30/2025 1 1 Encounter Details Date Type Department Care Team (Latest Contact Info) Description 05/07/2024 7:41 AM EDT - 05/07/2024 11:59 PM EDT Hospital Encounter MRI at [facility] [place] [phone] Andrea Freeman MD [facility] [place] [address] NSCLC of left lung Discharge Disposition: Home Social History Tobacco Use Types Packs/Day Years Used Date Smoking Tobacco: Former Pipe Passive Smoke Exposure: Past Smokeless Tobacco: Never Comments:Smoke pipe for 10 y ears since 13 years old, Does still smoke pot but is slowing down. Passive Exposure Comments:Second hand smoke since 1156-8801 Alcohol Use Standard Drinks/Week Comments Yes 14 (1 standard drink = 0.6 oz pure alcohol) hardly any for the last month B1300 Health Literacy Answer Date Recor ded How often do you need to hav e someone help you when you read instructions, pamphlets, or other written material from your doctor or pharmacy? Never 05/04/2024 [facility] Utilities Answer Date Recorded In the [...] any time in the past 12 m [facility], were you homeless or living in a fpc (including now)? No 05/04/2024 Sex and Gender Information Value Date Recorded Sex Assigned at Not on file Gender Identity Not on file Sexual Orientation Not on file documented as of this encounter Medications at Time of Discharge Medication Sig Dispensed Refills Start Date End Date furosemide (Lasix) 20 mg tablet Take 20 [...] for Pain. documented as of this encounter Plan of Treatment Upcoming Encounters Date Type Department Care Team (Late st Contact Info) Description 05/23/2024 9:30 AM EST Infusion Hematology Oncology at [address] [address] 05/30/2024 9:00 AM EST Infusion Hematology Oncology at [address] [address] 06/05/2024 9:15 AM EST Laboratory Appointment Lab at [facility] Hematology Oncology [address] [place] [address] 06/05/2024 10:30 AM EST Office Visit Hematology [place] [address] Albania Chahal MD [facility] HEMATOLOGY[place] [address] 06/05/2024 1:00 PM EST Appointment Hematology [place] [phone] 06/26/2024 9:15 AM EST Laboratory Appointment Lab at [facility] Hematology Oncology [address] [place] [address] 06/26/2024 10:30 AM EST Office Visit Hematology [place] [address] Albania Chahal MD [facility] [place]EMATOLOGY[place] [address] 06/26/2024 12:00 PM EST Appointment Hematology [place] [address] 07/17/2024 9:30 AM EST Laboratory Appointment Lab at [facility] Hematology Oncology [address] [place] [address] 07/17/2024 10:30 AM EST Office Visit Hematology [place] [address] Albania Chahal MD [facility] [place]EMATOLOGY[place] [address] 07/17/2024 12:00 PM EST Appointment Hematology [place] [address] documented as of this encounter Procedures Procedure Name Priority Date/Time Associated Diagnosis Comments MRI BRAIN WWO CONTRAST (GENERIC) Routine 05/07/2024 9:14 AM EDT NSCLC of left lung documented in this encounter Results * MRI Brain wwo Contrast (Generic) (05/07/2024 9:14 AM EDT) WORKSTATION ID [id number] [facility] Anatomical Region Laterality Modality Head Magnetic Resonan [...] who have questions please contact the health child care assistant that requested your imaging first. ? Narrative [...] enhancement. Normal marrow space signal. Procedure Note Cosme Min MD - 05/08/2024 EXAMINATION: MRI BRAIN [...] patients who have questions please contactthe health child care assistant that requested your imaging first. Andrea Freeman MD IMG MRI ORDERABLES documented in this encounter Visit Diagnoses Diagnosis NSCLC of left lung documented in this encounter Administered Medications Inactive Administered Medications - up to 3 most recent administrations Medication Order MAR Action Action Date Dose Rate Site gadoterate meglumine (Dotarem) (0.5 mMol/mL) injection solution 0-100 mL 0-100 mL, Intravenous, ONCE PRN, 1 dose, Starting on Sun05/07/24 at 0914, Until Sun05/07/24 at 0850, Per Protocol, Radiology Contrast, Routine Given 05/07/2024 8:50 AM EDT 12 mLs documented in this encounter Care Teams Bacteriologist Dairy Relationship Specialty Start Date End Date America Caro MD [address] [place] [address] PCP - General Family Medicine 03/31/24 documented as of this encounter
--- OUTSIDE RECORDS SUMMARY | 2024-05-23 01:22 | XMS_ITS | Encounter Summary ---
Author Organization [facility] Address [facility] [place] [address] Care Team Providers Care Account Officer Name Role Phone America Caro MD Primary Care Provider [phone] Encounter Details Date Type Department Care Team (Late st Contact Info) Description 05/12/2024 Orders Only Hematology [place] [address] Albania Chahal MD [facility] DR HEMATOLOGY/[place] [address] Non-small cell cancer of left lung Social History Tobacco Use Types Packs/Day Years Used Date Smoking Tobacco: Former Pipe Passive Smoke Exposure: Past Smokeless Tobacco: Never Comments:Smoke pipe for 10 y ears since 13 years old, Does still smoke pot but is slowing down. Passive Exposure Comments:Second hand smoke since 4378-8506 Alcohol Use Standard Drinks/Week Comments Yes 14 (1 standard drink = 0.6 oz pure alcohol) hardly any for the last month B1300 Health Literacy Answer Date Recor ded How often do you need to hav e someone help you when you read instructions, pamphlets, or other written material from your doctor or pharmacy? Never 05/04/2024 [facility] Utilities Answer Date Recorded [...] any time in the past [address] [facility], were you homeless or living in [...] 9:30 AM EST Infusion Hematology Oncology at [address] [address] 05/30/2024 9:00 AM EST Infusion Hematology Oncology at [address] [address] 06/05/2024 9:15 AM EST Laboratory Appointment Lab at [facility] Hematology Oncology [address] [place] [address] 06/05/2024 10:30 AM EST Office Visit Hematology [place] [address] Albania Chahal MD [facility] HEMATOLOGY/[place] [address] 06/05/2024 1:00 PM EST Appointment Hematology [place] [address] 06/26/2024 9:15 AM EST Laboratory Appointment Lab at [address] [address] 06/26/2024 10:30 AM EST Office Visit Hematology [place] [address] Albania Chahal MD [facility] HEMATOLOGY/[place] [address] 06/26/2024 12:00 PM EST Appointment Hematology [place] [address] 07/17/2024 9:30 AM EST Laboratory Appointment Lab at [facility] Hematology [address] [address] 07/17/2024 10:30 AM EST Office Visit Hematology [place] [address] Albania Chahal MD [facility] HEMATOLOGY/[place] [address] 07/17/2024 12:00 PM EST Appointment Hematology [place] [address] Scheduled Orders Name Type Priority Associated Diagnoses Orde r Schedule CBC (with Diff) Lab STAT Non-small cell cancer of left lung Expected: 05/13/2024, Expires: 11/12/2024 Comprehensive metabolic panel Non-fasting Lab STAT Non-small cell cancer of left lung Expected: 05/12/2024, Expires: 11/11/2024 Lactate Dehydrogenase Lab STAT Non-small cell cancer of left lung Expected: 05/12/2024, Expires: 11/11/2024 documented as of this encounter Visit Diagnoses Diagnosis Non-small cell cancer of left lung documented in this encounter Care Teams Account Officer Relationship Specialty Start Date End Date America Caro MD [address] [place] [address] PCP - General Family Medicine 03/31/24 documented as of this encounter
--- OUTSIDE RECORDS SUMMARY | 2024-05-23 01:22 | XMS_ITS | Encounter Summary ---
[place] [address] Care Team Providers Care Exhibit Builder Name Role Phone America Caro MD Primary Care Provider [phone] Encounter Details Date Type Department Care Team (Latest Contact Info) Description 05/15/2024 10:00 AM EDT Clinical Support [place]ematology [place] [id number] Bart Saunders, [facility] Non-small cell lung cancer, unspecified laterality Social History Tobacco Use Types Packs/Day Years Used Date Smoking Tobacco: Former Pipe Passive Smoke Exposure: Past Smokeless Tobacco: Never Comments:Smoke pipe for 10 y ears since 13 years old, Does still smoke pot but is slowing down. Passive Exposure Comments:Second hand smoke since [id number] Alcohol Use Standard Drinks/Week Comments Yes 14 (1 standard drink = 0.6 oz pure alcohol) hardly any for the last month B1300 Health Literacy Answer Date Recor ded How often do you need to hav e someone help you when you read instructions, pamphlets, or other written material from your doctor or pharmacy? Never 05/04/[address] [facility] Utilities Answer Date Recorded In the [...] time in the past 12 m [facility], were you homeless or living in a custodial (including now)? No 05/04/2024 Sex and Gender Information Value Date Recorded Sex Assigned at Not on file Gender Identity Not on file Sexual Orientation Not on file documented as of this encounter Progress Notes * Bart Saunders, [facility] - 05/15/2024 10:00 AM EDT PATIENT ID: Henry Javier is a 68 y.o. male with Stage IV squamous cell lung carcinoma who presents today for chemotherapy teaching and is accompanied by his nephew, Miguel. The plan is for Carboplatin/Abraxane/Pembrolizumab for 4-6 cycles. The following information was reviewed with the patient and Miguel. Antitumor Therapy Schedule: Pembrolizumab given on Day 1 of a 21 day cycle, infuses over 30 min. Carboplatin given on Day 1 of a 21 day cycle, infuses over 30 min Abraxane given on Days 1, 8 and 15 of a 21 day cycle, infuses over 30 min. Denosumab on Day 1 of each cycle Pre-medications: Anti-emetics prior to each dose of chemotherapy Laboratory Tests: Check blood counts, kidney and liver function, electrolytes prior to each dose of chemotherapy. Possible Side Effects include, but are not limited to: Carboplatin: The most common side effects include decrease in blood counts (decrease in white bloodcells, red blood cells and platelets resulting in increased risk of infection, anemia and bleeding), nausea and vomiting, taste changes, decreased appetite, constipation (or less likely diarrhea), fatigue. Less common side effects include infusion reaction, mouth sores, kidney dysfunction, electrolyte abnormalities, ringing in the ears or hearing loss. Abraxane: The most common potential side effects include: Decrease in blood counts (decrease in white blood cells, red blood cells and platelets, resulting in increased risk of infection, anemia and bleeding), infusion reactions, nausea/vomiting, hair loss, peripheral neuropathy, muscle aches/bone pain, fatigue. Less common side effect is diarrhea. Pembrolizumab: The most common potential side effects are fatigue, decreased appetite, itching, joint pain, nausea, and anemia. It is important to be aware of the potential immune-mediated toxicities, including pneumonitis, colitis, hepatitis, rash, neuropathy, and endocrinopathies. Call immediately if any change in breathing, 3 or more loose or watery stools in 24 hrs (do not take imodium), rash, profound fatigue, headaches or vision changes. Prompt treatment may be required with high dose steroids. Medications: the following prescriptions should be picked up before starting treatment: Prochlorperazine 10 mg oral every 6 hours as needed for nausea Calcium 600 mg twice daily and vitamin D 400 IU twice daily Plan: Henry Javier was given written information regarding chemotherapy regimen, side effects and management strategies. He was given an opportunity to ask questions and verbalized understanding of the information and treatment plan. No barriers to learning were identified. He was counseled on how to call for any further questions or concerns. Chemotherapy is scheduled to begin on 05/15/2024 Testing/Diagnostics Baseline blood work was reviewed and is adequate for treatment Chest CT every 2 cycles to assess response Supportive Care: CINV Risk Assessment: Age < 50 years: No History of morning sickness during : N/A Prone to motion sickness: No History of prior chemotherapy: No History of anxiety: Not terribly High pretreatment expectation of severe nausea: No Antiemetics were reviewed with and Henry understands how and when to take the medications prescribed Fertility: N/A Smoking cessation: No Chemotherapy exposure precautions were reviewed Advance Directives: Pt states he has one but does not have it on file with DH and will bring it in 40 of this 60 minute face to face encounter was spent in counseling, education and coordination of care. documented in this encounter Plan of Treatment Upcoming Encounters Date Type Department Care Team (Late st Contact Info) Description 05/23/2024 9:30 AM EST Infusion Hematology Oncology at [address] [address] 05/30/2024 9:00 AM EST Infusion Hematology Oncology at [address] [address] 06/05/2024 9:15 AM EST Laboratory Appointment Lab at [facility] Hematology Oncology [address] [place] [address] 06/05/2024 10:30 AM EST Office Visit Hematology [place] [address] Albania Chahal MD [facility] [place]ATOLOGY/[place] [address] 06/05/2024 1:00 PM EST Appointment Hematology [place] [address] 06/26/2024 9:15 AM EST Laboratory Appointment Lab at [facility] Hematology Oncology [address] [place] [address] 06/26/2024 10:30 AM EST Office Visit [place]ematology [place] [address] Albania Chahal MD [facility] HEMATOLOGY/[place] [address] 06/26/2024 12:00 PM EST Appointment Hematology [place] [address] 07/17/2024 9:30 AM EST Laboratory Appointment Lab at [facility] Hematology Oncology [address] [place] [address] 07/17/2024 10:30 AM EST Office Visit [place]ematology [place] [address] Albania Chahal MD [facility] [place]EMATOLOGY/[place] [address] 07/17/2024 12:00 PM EST Appointment [place]ematology [place] [address] documented as of this encounter Visit Diagnoses Diagnosis Non-small cell lung cancer, unspecified laterality documented in this encounter Care Teams Exhibit Builder Relationship Specialty Start Date End Date America Caro MD [address] [place] [address] PCP - General Family Medicine 03/31/24 documented as of this encounter
--- OUTSIDE RECORDS SUMMARY | 2024-05-23 01:22 | XMS_ITS ---
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 BCN AMB ONC NONSMALL CELL LUNG CANCER - CARBOplatin / PACLitaxeL ALBUMIN- BOUND (ABRAXANE) (100 mg/m2 (Days 1, 8 & 15) every 21 days) / PEMBROLIZUMAB* Plan Start Date:05/15/2024 Plan Provider:Albania Chahal MD Linked Problems Non-small cell lung cancer, unspecified lateralityMedication management Treatment Medications Current Day (Day 8 , Cycle 1 - Planned for 05/23/2024) Next Day (Day 15, Cycle 1 - Planned for 05/29/2024) CARBOplatin (Paraplatin) in 150 mL infusionPACLitaxeL albumin-bound (Abraxane)pembrolizumab (Keytruda) in sodium chloride 0.9% 100 mL infusionpembrolizumab (Keytruda) Recon Soln PACLitaxeL albumin-bound (Abraxane) injection 164 mg PACLitaxeL albumin-bound (Abraxane) injection 164 mg Past Plans No past plan information found. Radiation Treatments * No radiation treatments are documented for this patient in [facility]. Treatments may have been administered in another system.
--- OUTSIDE RECORDS SUMMARY | 2024-05-23 01:22 | XMS_ITS | Encounter Summary ---
Author Organization [facility] Address [facility] [place] [address] Care Team Providers Care Entry Level Name Role Phone America Caro MD Primary Care Provider [phone] Encounter Details Date Type Department Care Team (Late st Contact Info) Description 05/15/2024 Orders Only Hematology [place] [address] Albania Chahal MD [facility] DR HEMATOLOGY/[place] [address] Non-small cell lung cancer, unspecified laterality Social History Tobacco Use Types Packs/Day Years Used Date Smoking Tobacco: Former Pipe Passive Smoke Exposure: Past Smokeless Tobacco: Never Comments:Smoke pipe for 10 y ears since 13 years old, Does still smoke pot but is slowing down. Passive Exposure Comments:Second hand smoke since [id number] Alcohol Use Standard Drinks/Week Comments Yes 14 (1 standard drink = 0.6 oz pure alcohol) hardly any for the last month B1300 Health Literacy Answer Date Recor ded How often do you need to hav e someone help you when you read instructions, pamphlets, or other written material from your doctor or pharmacy? Never 05/04/2024 [facility] Utilities Answer Date Recorded In [...] any time in the past 12 m [facility], were you homeless or living in a chcf (including now)? No 05/04/2024 Sex and Gender Information Value Date Recorded Sex Assigned at Not on file Gender Identity Not on file Sexual Orientation Not on file documented as of this encounter Plan of Treatment Upcoming Encounters Date Type Department Care Team (Late st Contact Info) Description 05/23/2024 9:30 AM EST Infusion Hematology Oncology at [address] [address] 05/30/2024 9:00 AM EST Infusion Hematology Oncology at [address] [address] 06/05/2024 9:15 AM EST Laboratory Appointment Lab at [facility] Hematology Oncology [address] [place] [address] 06/05/2024 10:30 AM EST Office Visit Hematology [place] [address] Albania Chahal MD [facility] HEMATOLOGY[place] [address] 06/05/2024 1:00 PM EST Appointment Hematology [place] [address] 06/26/2024 9:15 AM EST Laboratory Appointment Lab at [facility] Hematology [address] [address] 06/26/2024 10:30 AM EST Office Visit Hematology [place] [address] Albania Chahal MD [facility] HEMATOLOGY[place] [address] 06/26/2024 12:00 PM EST Appointment Hematology [place] [address] 07/17/2024 9:30 AM EST Laboratory Appointment Lab at [facility] Hematology Oncology [address] [place] [address] 07/17/2024 10:30 AM EST Office Visit Hematology [place] [address] Albania Chahal MD [facility] HEMATOLOGY[place] [address] 07/17/2024 12:00 PM EST Appointment Hematology [place] [address] Scheduled Orders Name Type Priority Associated Diagnoses Orde r Schedule Miscellaneous Lab request Lab Routine Non-small cell lung cancer, unspecified laterality Every 3 weeks for 9 Occurrences starting 05/15/2024 until 05/15/2025 documented as of this encounter Visit Diagnoses Diagnosis Non-small cell lung cancer, unspecified laterality documented in this encounter Care Teams Entry Level Relationship Specialty Start Date End Date America Caro MD [address] [place] [address] PCP - General Family Medicine 03/31/24 documented as of this encounter
--- OUTSIDE RECORDS SUMMARY | 2024-05-23 01:23 | XMS_ITS | Encounter Summary ---
[place] [address] Care Team Providers Care Yeast Stacker Name Role Phone America Caro MD Primary Care Provider [phone] Reason for Referral * Diagnostic Test (Routine) - Authorized Specialty Diagnoses / Procedures Referred By Contac t Referred To Contact Radiology Diagnoses Non-small cell lung cancer, unspecified laterality Procedures CT Chest w Contrast Albania Chahal MD [facility] DR HEMATOLOGY/[place] [address] Referral ID Status Reason Start Date Expiration Date Visits Requested Visits Authorized [id number] Authorized Specialty Service Requested 11/04/2025 1 1 Reason for Visit * Reason Comments Advice Only * Consultation (Urgent) - Authorized Specialty Diagnoses / Procedures Referred By Contac t Referred To Contact Hematology and Oncology Diagnoses Malignant neoplasm of bronchus and lung HAS LARGE PERICARDIAL EFFUSION America Caro MD [address] [place] [address] [facility]c [address] [place] [address] Referral ID Status Reason Start Date Expiration Date Visits Requested Visits Authorized [id number] Authorized Consult, Test & Treat PCP Updated and/or Approved 04/14/2024 10/12/2024 6 6 Encounter Details Date Type Department Care Team (Late st Contact Info) Description 05/06/2024 1:00 PM EDT Office Visit Hematology and Oncology at [facility] [place] [id number] Albania Chahal MD [facility] HEMATOLOGY/[place] [address] Non-small cell lung cancer, unspecified laterality Social History Tobacco Use Types Packs/Day Years Used Date Smoking Tobacco: Former Pipe Passive Smoke Exposure: Past Smokeless Tobacco: Never Comments:Smoke pipe for 10 y ears since 13 years old, Does still smoke pot but is slowing down. Passive Exposure Comments:Second hand smoke since [id number] Alcohol Use Standard Drinks/Week Comments Yes 14 (1 standard drink = 0.6 oz pure alcohol) hardly any for the last month B1300 Health Literacy Answer Date Recor ded How often do you need to hav e someone help you when you read instructions, pamphlets, or other written material from your doctor or pharmacy? Never 05/04/2024 [facility] Utilities Answer Date Recorded In the [...] Sign Reading Time Taken Comments Blood Pressure 146/93 05/06/2024 12:24 PM EDT notified provider Pulse 75 05/06/2024 12:24 PM EDT Temperature 36.4 ??C (97.5 ??F) 05/06/2024 1 2:24 PM EDT Respiratory Rate 18 05/06/2024 12:2 4 PM EDT Oxygen Saturation 99% 05/06/2024 12: 24 PM EDT Inhaled Oxygen Concentration - - Weight 60.1 kg (132 lb 7.9 oz) 05/06/2024 12:24 PM EDT Height 161.6 cm (5' 3.62) 05/06/2024 1 2:24 PM EDT Body Mass Index 23.01 05/06/2024 12:24 PM EDT documented in this encounter Progress Notes * Albania Chahal MD - 05/06/2024 1:00 PM EDT Images from the original note were not included. NEW THORACIC ONCOLOGY CONSULT Reason for consult: New diagnosis of squamous [...] malignancy. Station 11R was negative for malignancy. Henry Javier comes for the first time to thoracic oncology clinic on 05/06/2024. Mr. Javier reports that his breathing has improved since his pleural tap. Previously, he could walk his dog for 3 miles but had to take multiple breaks right before the procedure. Now, he feels he canwalk without difficulty and is able to climb stairs. He developed a cough after his bronchoscopy, but it has since subsided. His left-sided chest pain remains stable with NSAIDs and Tylenol; while todd experiences some pain, it is better controlled following treatment for his pericarditis. His appetite has decreased, but he is managing to eat three meals a day and is avoiding fats after his cholecystectomy. He has lost about 28 pounds over the past year, partly due to an intentional exercise routine. He often feels tired and has been taking more naps than usual, but he can still care for himself and complete his daily activities. He has experienced constipation over the last few days but denies any diarrhea, abdominal pain, nausea, or vomiting. Additionally, he reports no headaches, visual changes, tingling, or numbness. REVIEW OF SYSTEMS: As per HPI. A 12 point [id number] was obtained. Symptoms as explained in the [...] . 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 Alcohol: He drank heavily for a long [...] 24 hrs: Temp Pulse Resp BP SpO2 05/06/24 1224 36.4 ??C (97.5 ??F) 75 18 (!) 146/93 99 % GENERAL: Henry Javier appears well and is in no acute distress. ENT: Oral pharynx clear. NECK: Supple without adenopathy. CARDIAC: Regular rate and rhythm without S3,S4 or murmurs. LUNGS: Diminished breath sounds. No wheezing or coarse sounds. ABDOMEN: Soft and non-tender. EXTREMITIES: No edema. SKIN: No bruises or petechiae. NEUROLOGICAL: Alert and oriented to person, place and time. MUSCULOSKELETAL: No spinal or chest wall tenderness. LABORATORY STUDIES: CBC, mild anemia with Hb at 12.9, and platelet count at 689K. CMP mild low Na at 133. SHAWNA down from 419 to 265. LDH stable at 257 (elevated). RADIOLOGY STUDIES REVIEWED: PET CT scan: 1. Large FDG avid [...] thoracentesis on 04/16/2024 (750 cc) PD-L1 level pending (ordered on 05/05/2024) Molecular panel pending (ordered on 05/05/2024) Liquid biopsy pending (ordered on 05/06/2024) I discussed with the patient the diagnosis, [...] rare histological variant of lung cancer, and some literature suggests that this subtype is associated with a poorer prognosis compared to other forms of non- small cell lung cancer. However, this is a rare entity and currently, treatment for basaloid squamous cell carcinoma follows the conventional guidelines for squamous cell carcinoma. I outline that the goals of the treatment is to control disease while maintaining an acceptable quality oflife. I mentioned that systemic treatment can help achieve these goals, but it is crucial to consider both the benefits and limitations of each treatment option. For metastatic disease, current recommendations are based on the presence of activating tumor's genomic alterations and tumor PD-L1 status. Should no actionable alterations be found, early initiationof chemoimmunotherapy could be beneficial. His PD-L1 status, and next-generation sequencing to identify any tumor route driver alterations were ordered yesterday (04/22/2024). Results are expected within the next three weeks. To expedite his evaluation, I obtained a liquid biopsy today and expect the results next week. He has a history of no use of tobacco, however the fact that this is basaloid SCC, isless likely that his tumor harbor a targetable mutation. Therefore, I anticipate a therapy plan with carboplatin, Abraxane, and pembrolizumab in that clinical scenario. We also discussed the possibility of not having treatment. Mr. Javier is interested in pursuing cancer treatment. Overall, Mr. Javier has a good performance status (ECOG of 1) and appears well- suited for cancer treatment. I briefly went over the logistics of cancer treatment. I would favor to start systemic treatment with carboplatin (Day 1), Abraxane (Days 1, 8, and 15), and pembrolizumab (Day 1). We reviewed the general side effects of cancer treatment including immune-related side effects. A balance between side effects and benefits from treatment must be kept. I reviewed the potential risks of chemotherapy and emphasized the importance of considering these alongside the patient???s individual goals and preferences for quality of life. I noted that we will meet regularly to check for toxicities, withphysical exam and blood work-up. If he develops a side effect, we can treat with symptomatic measures or dose-reduced her medication without losing efficacy. I also discussed prognosis. In anticipation of his cancer treatment, I recommend he keeps actively physically and optimizing his nutrition. He has a good support from friends. Other: Left-side pleural effusion: He underwent thoracentesis on 04/16/2024, s/p [address] Freeman performed the procedure. No indication for immediate procedure now. His breathing is stable today. Pericarditis with large pleural effusion: He was found with large pericardial effusion, treated with colchicine, ibuprofen and Tylenol. His pain has improved but still have some residual pain. PET CT showed pericardial thickening which couldrepresent pericarditis vs malignancy. ECHo with normal EF of 60%. Cardiology on board. RECOMMENDATIONS: I ordered PD-L1 status, a molecular panel, and a liquid biopsy today. Results from the liquid biopsy will be available in one week. I plan to start him on carboplatin, Abraxane, and pembrolizumab, with infusions scheduled for Day 1 at [facility] and Days 8 and 15 at [facility]. I will arrange for an updated CT scan of his chest with contrast before starting treatment, as the last scan was performed about 1.5 months ago. A brain MRI is scheduled for 05/07/2024 to complete the staging. There is no need for a therapeutic thoracentesis at this time, as his breathing is stable during this visit. Continue treatment for pericarditis as directed by the metal machine setter. I spent 60 minutes in the total care of this patient including review of records and imaging, [id number] consultation and counseling, interpretation of studies, coordination of care and documentation. Albania Milian M.D. Thoracic Oncology Pager # [phone] 05/06/24, 2:47 PM [facility] documented in this encounter Plan of Treatment Upcoming Encounters Date Type Department Care Team (Late st Contact Info) Description 05/23/2024 9:30 AM EST Infusion Hematology Oncology at [address] [phone] 05/30/2024 9:00 AM EST Infusion Hematology Oncology at [address] [phone] 06/05/2024 9:15 AM EST Laboratory Appointment Lab at [facility] Hematology [address] [address] 06/05/2024 10:30 AM EST Office Visit H[place]ology [place] [address] Albania Chahal MD [facility] HEMATOLOGY/[place] [address] 06/05/2024 1:00 PM EST Appointment Hematology [place] [address] 06/26/2024 9:15 AM EST Laboratory Appointment Lab at [facility] Hematology Oncology [address] [place] [address] 06/26/2024 10:30 AM EST Office Visit [place]ology [place] [address] Albania Chahal MD [facility] HEMATOLOGY/[place] [address] 06/26/2024 12:00 PM EST Appointment Hematology [place] [address] 07/17/2024 9:30 AM EST Laboratory Appointment Lab at [facility] Hematology Oncology [address] [place] [id number] 07/17/2024 10:30 AM EST Office Visit [place]ology [place] [address] Albania hCahal MD [facility] DR HEMATOLOGY/[place] [address] 07/17/2024 12:00 PM EST Appointment [place]ology [place] [address] Pending Results Name Type Priority Associated Diagnoses Date /Time Miscellaneous Lab request Lab Routine Non-small cell lung cancer, unspecified laterality 05/06/2024 12:14 PM EDT Scheduled Orders Name Type Priority Associated Diagnoses Orde r Schedule Anatomical Pathology Additional Testing Pathology/Cytolo gy Routine Non-small cell lung cancer, unspecified laterality Ordered: 05/05/2024 Miscellaneous Lab request Lab Routine Non-small cell lung cancer, unspecified laterality Expected: 05/06/2024, Expires: 11/05/2024 CT Chest w Contrast Imaging Routine Non-small cell lung cancer, unspecified laterality Expected: 05/06/2024, Expires: 11/05/2024 Anatomical Pathology Additional Testing Pathology/Cytolo gy Routine Non-small cell lung cancer, unspecified laterality Ordered: 05/06/2024 documented as of this encounter Results * (ABNORMAL) Lactate Dehydrogenase (05/06/2024 12:15 PM EDT) Lactate Dehydrogenase 257(H) 110 - 220 unit/L 05/06/2024 1:06 PM EDT [facility] Blood VENOUS BLOOD SPECIMEN / Unknown Venipuncture / Unknown 05/06/2024 12:15 PM EDT 05/06/2024 12:15 PM EDT Albania Dutton MD CHEMISTRY ORDERA BLES [facility] [place] [address] * (ABNORMAL) Comprehensive metabolic panel Non-fasting (05/06/2024 12:15 PM EDT) Glucose 97 65 - 199 mg/dL 05/06/2024 1:18 PM EDT [facility] Comment:Glucose Concentratio n >=200 mg/dL plus symptoms is consistent with Diabetes Mellitus. Blood Urea Nitrogen 19 10 - 20 mg/dL 05/06/2024 1:18 PM EDT [facility] Creatinine 0.79(L) 0.80 - 1.50 mg/dL 05/06/2024 1:18 PM EDT [facility] Sodium 133(L) 135 - 145 mMol/L 05/06/2024 1:18 PM EDT [facility] Potassium 4.9 3.5 - 5.0 mMol/L 05/06/2024 1:18 PM EDT [facility] Chloride 96(L) 98 - 107 mMol/L 05/06/2024 1:18 PM EDT [facility] Carbon Dioxide 27 22 - 31 mMol/L 05/06/2024 1:18 PM EDT [facility] Anion Gap 10 5 - 15 mMol/L 05/06/2024 1:18 PM EDT [facility] Calcium 9.8 8.5 - 10.5 mg/dL 05/06/2024 1:18 PM EDT [facility] Protein, Total 8.4(H) 6.1 - 8.0 g/dL 05/06/2024 1:18 PM EDT [facility] Albumin 3.9 3.2 - 5.2 g/dL 05/06/2024 1:18 PM EDT [facility] Aspartate Aminotransferase 33 <=39 unit/L 05/06/2024 1:18 PM EDT [facility] Alanine Aminotransferase 34 0 - 55 unit/L 05/06/2024 1:18 PM EDT [facility] Alkaline Phosphatase 265(H) 40 - 130 unit/L 05/06/2024 1:18 PM EDT [facility] Bilirubin, Total 0.4 <=1.3 mg/dL 05/06/2024 1:18 PM EDT [facility] Est Glomerular Filtration Rate - Male 96 mL/min/1. 73 m?? 05/06/2024 1:18 PM EDT [facility] Comment: This patient's estimated GFR [...] Calculator [employer] Fasting Status No 05/06/2024 1:18 PM EDT [facility] Blood VENOUS BLOOD SPECIMEN / Unknown Venipuncture / Unknown 05/06/2024 12:15 PM EDT 05/06/2024 12:15 PM EDT Albania Dutton MD CHEMISTRY ORDERA BLES [facility] [place] [address] * (ABNORMAL) CBC (with Diff) (05/06/2024 12:15 PM EDT) White Blood Cell 9.45 4.00 - 9.50 x10(3)/mc L 05/06/2024 12:33 PM EDT [facility] Red Blood Cell 4.99 4.58 - 5.54 x10(6)/mc L 05/06/2024 12:33 PM EDT [facility] Hemoglobin 12.9(L) 13.7 - 16.5 g/dL 05/06/2024 12:33 PM [facility] Hematocrit 40.2(L) 40.5 - 48.5 % 05/06/2024 12:33 PM [facility] Mean Cell Volume 80.6(L) 82.9 - 93.1 fL 05/06/2024 12:33 PM [facility] Mean Cell Hemoglobin 25.9(L) 27.5 - 32.1 pg 05/06/2024 12:33 PM [facility] Mean Cell Hemoglobin Concentration 32.1 32.0 - 35.7 g/dL 05/06/2024 12:33 PM [facility] Platelet 689(H) 145 - 357 x10(3)/mc L 05/06/2024 12:33 PM [facility] Mean Platelet Volume 8.5 7.6 - 12.9 fL 05/06/2024 12:33 PM [facility] RDW Standard Deviation 44.5 36.0 - 45.0 fL 05/06/2024 12:33 PM [facility] RDW coefficient of variation 15.2(H) 11.4 - 13.8 % 05/06/2024 12:33 PM [facility] NRBC% auto 0.0 % 05/06/2024 12:33 PM [facility] NRBC Absolute <0.01 <0.01 x10(3)/mc L 05/06/2024 12:33 PM [facility] Neutrophil % 81.1 % 05/06/2024 12:33 PM [facility] Neutrophil Absolute (ANC) - Automated 7.65(H) 1.70 - 6.10 x10(3)/mc L 05/06/2024 12:33 PM [facility] Lymph % 11.6 % 05/06/2024 12:33 PM [facility] Lymph Absolute 1.10 0.90 - 3.20 x10(3)/mc L 05/06/2024 12:33 PM [facility] Monocyte % 6.2 % 05/06/2024 12:33 PM EDT [facility] Monocyte Absolute 0.59 0.30 - 0.90 x10(3)/mc L 05/06/2024 12:33 PM EDT [facility] Eos % 0.2 % 05/06/2024 12:33 PM EDT [facility] Eos Absolute <0.04 0.00 - 0.40 x10(3)/mc L 05/06/2024 12:33 PM EDT [facility] Basophil % 0.4 % 05/06/2024 12:33 PM EDT [facility] Baso Absolute 0.04 0.00 - 0.10 x10(3)/mc L 05/06/2024 12:33 PM EDT [facility] Immature Gran % 0.5 % 12:33 PM EDT [facility] Immature Gran Absolute 0.05(H) 0.00 - 0.04 x10(3)/mc L 05/06/2024 12:33 PM EDT [facility] Blood VENOUS BLOOD SPECIMEN / Unknown Venipuncture / Unknown 05/06/2024 12:15 PM EDT 05/06/2024 12:15 PM EDT Albania Dutton MD HEMATOLOGY ORDER [facility] [place] [address] documented in this encounter Visit Diagnoses Diagnosis Non-small cell lung cancer, unspecified laterality documented in this encounter Care Teams Yeast Stacker Relationship Specialty Start Date End Date America Caro MD [address] [place] [address] PCP - General Family Medicine 03/31/24 documented as of this encounter
--- OUTSIDE RECORDS SUMMARY | 2024-05-23 01:23 | XMS_ITS | Encounter Summary ---
[facility] Organization [facility] [place] [address] Care Team Providers Care [employer] Developer Name Role Phone America Caro MD Primary Care Provider [phone] Encounter Details Date Type Department Care Team (Latest Contact Info) Description 04/16/2024 2:40 PM EDT Laboratory Appointment Lab [address] [place] [address] Pleural effusion, bilateral Social History Tobacco Use Types Packs/Day Years Used Date Smoking Tobacco: Former Pipe Passive Smoke Exposure: Past Smokeless Tobacco: Never Comments:Smoke pipe for 10 y ears since 13 years old, Does still smoke pot but is slowing down. Passive Exposure Comments:Second hand smoke since [id number] Sex and Gender Information Value Date Recorded Sex Assigned at Not on file Gender Identity Not on file Sexual Orientation Not on file documented as of this encounter Plan of Treatment Upcoming Encounters Date Type Department Care Team (Late st Contact Info) Description 05/23/2024 9:30 AM EST Infusion Hematology Oncology at [address] [phone] 05/30/2024 9:00 AM EST Infusion Hematology Oncology at [address] [address] 06/05/2024 9:15 AM EST Laboratory Appointment Lab at [facility] Hematology Oncology [address] [phone] 06/05/2024 10:30 AM EST Office Visit Hematology [place] [address] [place]ia Chahal MD [facility] HEMATOLOGY/[place] [address] 06/05/2024 1:00 PM EST Appointment Hematology [place] [address] 06/26/2024 9:15 AM EST Laboratory Appointment Lab at [facility] Hematology Oncology [address] [place] [address] 06/26/2024 10:30 AM EST Office Visit Hematology [place] [phone] Albania Chahal MD [facility] DR CARTWRIGHT/[place] [address] 06/26/2024 12:00 PM EST Appointment Hematology [place] [address] 07/17/2024 9:30 AM EST Laboratory Appointment Lab at [facility] Hematology [address] [address] 07/17/2024 10:30 AM EST Office Visit Hematology [place] [address] [place]ia Chahal MD [facility] HEMATOLOGY/[place] [address] 07/17/2024 12:00 PM EST Appointment Hematology [place] [address] documented as of this encounter Procedures Procedure Name Priority Date/Time Associated Diagnosis Comments CBC (WITH DIFF) Routine 04/16/2024 12:47 PM EDT Pleural effusion, bilateral LACTATE DEHYDROGENASE Routine 04/16/2024 12:47 PM EDT Pleural effusion, bilateral COMPREHENSIVE METABOLIC PANEL Routine 04/16/2024 12:47 PM EDT Pleural effusion, bilateral documented in this encounter Results * (ABNORMAL) Comprehensive metabolic panel Non-fasting (04/16/2024 12:47 PM EDT) Glucose 97 65 - 199 mg/dL 04/16/2024 1:32 PM [facility] Comment:Glucose Concentratio n >=200 mg/dL plus symptoms is consistent with Diabetes Mellitus. Blood Urea Nitrogen 14 10 - 20 mg/dL 04/16/2024 1:32 PM [facility] Creatinine 0.71(L) 0.80 - 1.50 mg/dL 04/16/2024 1:32 PM [facility] Sodium 140 135 - 145 mMol/L 04/16/2024 1:32 PM [facility] Potassium 4.1 3.5 - 5.0 mMol/L 04/16/2024 1:32 PM [facility] Chloride 103 98 - 107 mMol/L 04/16/2024 1:32 PM [facility] Carbon Dioxide 27 22 - 31 mMol/L 04/16/2024 1:32 PM [facility] Anion Gap 10 5 - 15 mMol/L 04/16/2024 1:32 PM [facility] Calcium 9.0 8.5 - 10.5 mg/dL 04/16/2024 1:32 PM [facility] Protein, Total 7.1 6.1 - 8.0 g/dL 04/16/2024 1:32 PM [facility] Albumin 3.5 3.2 - 5.2 g/dL 04/16/2024 1:32 PM [facility] Aspartate Aminotransferase 27 <=39 unit/L 04/16/2024 1:32 PM [facility] Alanine Aminotransferase 30 0 - 55 unit/L 04/16/2024 1:[address] [facility] Alkaline Phosphatase 419(H) 40 - 130 unit/L 04/16/2024 1:[address] [facility] Bilirubin, Total 0.5 <=1.3 mg/dL 04/16/2024 1:[address] [facility] Est Glomerular Filtration Rate - Male 99 mL/min/1. 73 m?? 04/16/2024 1:[address] [facility] Comment: This patient's estimated GFR [...] Calculator [employer] Fasting Status No 04/16/2024 1:[address] [facility] Blood VENOUS BLOOD SPECIMEN / Unknown Venipuncture / Unknown 04/16/2024 12:47 PM EDT 04/16/2024 12:47 PM EDT Seven Saha MD CHEMISTRY ORDERABLES [facility] [place] [address] * (ABNORMAL) Lactate Dehydrogenase (04/16/2024 12:47 PM EDT) Lactate Dehydrogenase 275(H) 110 - 220 unit/L 04/16/2024 1:[address] [facility] Blood VENOUS BLOOD SPECIMEN / Unknown Venipuncture / Unknown 04/16/2024 12:47 PM EDT 04/16/2024 12:47 PM EDT Seven Saha MD CHEMISTRY ORDERABLES [facility] [place] [address] * (ABNORMAL) CBC (with Diff) (04/16/2024 12:47 PM EDT) White Blood Cell 8.36 4.00 - 9.50 x10(3)/mc L 04/16/2024 1:[address] [facility] Red Blood Cell 4.54(L) 4.58 - 5.54 x10(6)/mc L 04/16/2024 1:[address] [facility] Hemoglobin 12.1(L) 13.7 - 16.5 g/dL 04/16/2024 1:[address] [facility] Hematocrit 37.5(L) 40.5 - 48.5 % 04/16/2024 1:[address] [facility] Mean Cell Volume 82.6(L) 82.9 - 93.1 fL 04/16/2024 1:[address] [facility] Mean Cell Hemoglobin 26.7(L) 27.5 - 32.1 pg 04/16/2024 1:[address] [facility] Mean Cell Hemoglobin Concentration 32.3 32.0 - 35.7 g/dL 04/16/2024 1:[address] [facility] Platelet 725(H) 145 - 357 x10(3)/mc L 04/16/2024 1:[address] [facility] Mean Platelet Volume 8.5 7.6 - 12.9 fL 04/16/2024 1:[address] [facility] RDW Standard Deviation 45.0 36.0 - 45.0 fL [facility] coefficient of variation 14.9(H) 11.4 - 13.8 % 04/16[facility]2024 [facility] NRBC% auto 0.0 % 04/16[facility]2024 [facility] NRBC Absolute <0.01 <0.01 x10(3)/mc L 04/16/2024 1:[address] [facility] Neutrophil % 77.2 % 04/16/2024 1:[address] [facility] Neutrophil Absolute (ANC) - Automated 6.46(H) 1.70 - 6.10 x10(3)/mc L 04/16/2024 1:[address] [facility] Lymph % 14.0 % 04/16/2024 1:[address] [facility] Lymph Absolute 1.17 0.90 - 3.20 x10(3)/mc L 04/16/2024 1:[address] [facility] Monocyte % 7.2 % 04/16/2024 1:[address] [facility] Monocyte Absolute 0.60 0.30 - 0.90 x10(3)/mc L 04/16/2024 1:[address] [facility] Eos % 0.5 % 04/16/2024 1:[address] [facility] Eos Absolute 0.04 0.00 - 0.40 x10(3)/mc L 04/16/2024 1:[address] [facility] Basophil % 0.4 % 04/16/2024 1:[address] [facility] Baso Absolute <0.04 0.00 - 0.10 x10(3)/mc L 04/16/2024 1:[address] [facility] Immature Gran % 0.7 % 1:[address] [facility] Immature Gran Absolute 0.06(H) 0.00 - 0.04 x10(3)/mc L 04/16/2024 1:[address] [facility] Blood VENOUS BLOOD SPECIMEN / Unknown Venipuncture / Unknown 04/16/2024 12:47 PM EDT 04/16/2024 12:47 PM EDT Seven Saha MD HEMATOLOGY ORDERABLE S [facility] [place] [address] documented in this encounter Visit Diagnoses Diagnosis Pleural effusion, bilateral Unspecified pleural effusion documented in this encounter Care Teams [employer] Developer Relationship Specialty Start Date End Date America Caro MD [address] [place] [address] PCP - General Family Medicine 03/31/24 documented as of this encounter
--- OUTSIDE RECORDS SUMMARY | 2024-05-23 01:23 | XMS_ITS | Encounter Summary ---
Author Organization [facility] Address [facility] [place] [address] Care Team Providers Care Vending Machine Repairer Name Role Phone America Caro MD Primary Care Provider [phone] Encounter Details Date Type Department Care Team (Latest Contact Info) Description 04/24/2024 6:27 AM EDT - 04/24/2024 9:32 AM EDT Hospital En[place] [address] BackerAndrea MD [facility] [place] [address] Discharge Disposition: Home Social History Tobacco Use Types Packs/Day Years Used Date Smoking Tobacco: Former Pipe Passive Smoke Exposure: Past Smokeless Tobacco: Never Comments:Smoke pipe for 10 y ears since 13 years old, Does still smoke pot but is slowing down. Passive Exposure Comments:Second hand smoke since 5988-2471 Alcohol Use Standard Drinks/Week Comments Yes 14 (1 standard drink = 0.6 oz pure alcohol) hardly any for the last month Sex and Gender Information Value Date Recorded Sex Assigned at Not on file Gender Identity Not on file Sexual Orientation Not on file documented as of this encounter Last Filed Vital Signs Vital Sign Reading Time Taken Comments Blood Pressure 89/62 04/24/2024 9:10 AM EDT Pulse 72 04/24/2024 7:08 AM EDT Temperature 36.4 ??C (97.5 ??F) 04/24/2024 8:35 AM ED T Respiratory Rate 20 04/24/2024 9:10 AM EDT Oxygen Saturation 95% 04/24/2024 9:10 AM EDT Inhaled Oxygen Concentration - - Weight 62.6 kg (138 lb) 04/24/2024 7:08 AM EDT Height 160 cm (5' 3) 04/24/2024 7:08 AM EDT Body Mass Index 24.45 04/24/2024 7:08 AM EDT documented in this encounter Discharge Instructions * Discharge Instructions* Sarah Feldman RN - 04/24/2024 8:35 AM EDT Bronchoscopy: What to Expect at Home Your Recovery Bronchoscopy lets your doctor look at your airway through a tube called a bronchoscope. Afterward, you may feel tired for 1 or 2 days. Your mouth may feel very dry for several hours after the procedure. You may also have a sore throat and a hoarse voice for a few days. Sucking on throat lozenges orgargling with warm salt water may help soothe your sore throat. If a sample of tissue (biopsy) was taken, you may spit up a small amount of blood or have bloody saliva. This is normal. This care sheet gives you a general idea about how long it will take for you to recover. But each person recovers at a different pace. Follow the steps below to get better as quickly as possible. How can you care for yourself at home? Activity Rest when you feel tired. Getting enough sleep will help you recover. Avoid strenuous activities, such as bicycle riding, jogging, weight lifting, or aerobic exercise, until your doctor says it is okay. Diet You can eat your normal diet. If your stomach is upset, try bland, low-fat foods like plain rice, broiled chicken, toast, and yogurt. If it is painful to swallow, start out with cold drinks, flavored ice pops, and ice cream. Next, try soft foods like pudding, yogurt, canned or cooked fruit, scrambled eggs, and mashed potatoes. Avoid eating hard or scratchy foods like chips or raw vegetables. Avoid orange or tomato juice and otheracidic foods that can sting the throat. Drink plenty of fluids to avoid becoming dehydrated (unless your doctor tells you not to). Medicines Take pain medicines exactly as directed. If the doctor gave you a prescription medicine for pain, take it as prescribed. If you are not taking a prescription pain medicine, ask your doctor if you can take an bmyx-tbd-rhfybtx medicine. If you think your pain medicine is making you sick to your stomach: Take your medicine after meals (unless your doctor has told you not to). Ask your doctor for a different pain medicine. If your doctor prescribed antibiotics, take them as directed. Do not stop taking them just because you feel better. You need to take the full course of antibiotics. Follow-up care is a small part of your treatment and safety. Be sure to make and go to all appointments, and call your doctor if you are having problems. It's also a good idea to know your test resultsand keep a list of the medicines you take. When should you call for help? Call 911 anytime you think you may need emergency care. For example, call if: You passed out (lost consciousness). You have sudden chest pain and shortness of breath. You cough up large amounts of bright red blood. You have severe pain in your chest. You have severe trouble breathing. Call your doctor now or seek immediate medical care if: You cough up more than a few tablespoons of blood. You have pain that does not get better after you take pain medicine. You have a fever over 100??F. You still sound hoarse after a few days. You have bubbles under the skin around the collarbone. These may crackle and pop when you press on them. Watch closely for changes in your health, and be sure to contact your doctor if you have any problems. Where can you learn more? Visit our health information library at [email or web address]. You can also view health information on Mailsuite, your personal patient account. Log in or sign uptoday. Enter S288 in the search box to learn more about Bronchoscopy: What to Expect at Home. Current as of: December 22, 2018 Content Version: 12.2 ?? 3183-6014 [employer]. Care instructions adapted under license by [facility]. If you have questions about a medical condition or this instruction, always ask your healthcare professional. [employer] disclaims any warranty or liability for your use of this information. documented in this encounter Medications at Time of Discharge [...] as of this encounter Progress Notes * Sarah Feldman RN - 04/24/2024 9:28 AM EDT Patient alert and oriented, vital signs stable. Reviewed discharge instructions; patient and nephewverbalized understanding. Copy of instruction sheet with contact numbers for questions/concerns. Pain assessment documented. Patient escorted out of department via wheelchair with nephew. documented in this encounter H&P Notes * Andrea Freeman MD - 04/23/2024 8:45 PM EDT Interventional Pulmonology Pre-Procedure History & Physical SECTION OF PULMONARY/CRITICAL CARE MEDICIE Procedure: Bronchoscopy, endobronchial ultrasound (EBUS) and biopsy Reason for procedure: Lung mass See last note from Dr. Freeman PHYSICAL EXAM: To be reassessed at time of procedure Assessment & Plan: Consent to be signed Proceed with procedure as stated Andrea Freeman MD, 04/23/2024, 8:45 PM Interventional Pulmonology Section of Pulmonary & Critical Care Pager: [phone] documented in this encounter Miscellaneous Notes * Op Note - Andrea Freeman MD - 04/24/2024 7:50 AM EDT Images from the original note were not included. INTERVENTIONAL PULMONOLOGY PROCEDURE NOTE SECTION OF PULMONARY & CRITICAL CARE MEDICINE Patient Name: Henry Javier Patient Patient : 1955 Procedure Date: 04/24/2024 Procedure(s): A flexible bronchoscopy Airway examination EBUS-TBNA (4 sites(s)) Therapeutic suctioning Chest ultrasound with interpretation Procedure Location: Endoscopy unit Indication: Lung mass Attending(s) of Record: Andrea Freeman MD Others Present: None Medications: General Anesthesia - See anesthesia flowsheet for details Sedation Time: Per anesthesia care provider Time Out: Performed The patient's medical record has been reviewed. The indication for the procedure was reviewed. The necessary history and physical examination was performed and reviewed. The risks, benefits and alternatives of the procedure were discussed with the patient in detail and he had the opportunity to askquestions. I discussed in particular the potential minor and major complications. All questions were answered to the best of my ability. Informed consent was obtained. The proposed procedure and the patient's identification were verified prior to the procedure by the physician and the nurse. After clinical evaluation and reviewing the indication, risks, alternatives, and benefits of the procedure the patient was deemed to be in satisfactory condition to undergo the procedure. Procedure Descriptions: Airway Examination: A P2 Science EB-580S (5.3 mm) flexible bronchoscope was used for the procedure. The bronchoscope was inserted through the endotracheal tube and inspection undertaken. A complete airway examination was performed from the distal trachea to the subsegmental level in each lobe of both lungs. Pertinent findings include normal bronchial anatomy and no endobronchial lesions. There is erythema of the mucosa overlying the posterior membrane of the distal LMSt bronchus just proximal to the LC2 raymond (this is radiographically in the distribution of the known FDG avid LLL nodule which was biopsied [see below]). . EBUS-TBNA (4 sites): The P2 Science EBUS (EB-530US) scope was inserted, lymph node inspection undertaken and transbronchial needle aspiration obtained from the following sites using the Olympus ViziShot-2 FLEX 19 gauge TBNA needle: 1) Station 11Rs(superior) (5-10 mm) with 3 passes obtained with MARIA INES absent. 2) Station 4R (5-10 mm) with 3 passes obtained with MARIA INES absent. 3) Station 7 (>10 mm ) with 3 passes obtained with MARIA INES absent. 4) The LLL nodule was identified (>10 mm ) with 6 passes (including 1 pass for flow) obtained with MARIA INES absent. Abundant material was collected in 10% neutral buffered formalin and RPMI medium and sent for cytology review and flow cytometry . Note, all mediastinal, hilar, lobar and segmental stations are evaluated during the procedure and those not listed were not biopsied due to small lymph node diameter, positive MARIA INES on higher erica staging, alternative diagnosis or inability to continue with the procedure. Specifically, Station 4L was <5 mm. Therapeutic Suctioning (92293): A significant portion of operative time was spent clearing out the airway of debris, blood and secretions prior to or during the intervention. Chest Ultrasound with Interpretation (50433/modifier 26): The patient was placed in a supine position and a bilateral lateral (limited) chest qwala-uz-sgcj ultrasound was performed. No pleural effusion was identified on lateral inspection of the right and left chest. The diaphragm, heart and lung tissue were clearly visualized. More posterior collections are not ruled out. Any disposable equipment was visually inspected and deemed to be intact immediately post procedure. Estimated Blood Loss: 5 mL Complications: None Relevant Pictures Erythema of mucosa along posterior membrane of distal LMSt bronchus (in distribution of known LLL nodule) EBUS-TBNA LLL nodule No appreciable L pleural effusion on lateral chest exam Recommendations: Successful flexible bronchoscopy and EBUS-TBNA (4 site(s)) Await pending results in the next 3-5 business days Follow-up with referring provider as previously arranged Andrea Freeman MD, 04/24/2024, 8:23 AM Interventional Pulmonology Section of Pulmonary & Critical Care Pager: [phone] documented in this encounter Plan of Treatment Upcoming Encounters Date Type Department Care Team (Late st Contact Info) Description 05/23/2024 9:30 AM EST Infusion Hematology Oncology at [address] [address] 05/30/2024 9:00 AM EST Infusion Hematology Oncology at [address] [address] 06/05/2024 9:15 AM EST Laboratory Appointment Lab at [facility] Hematology Oncology [address] [place] [address] 06/05/2024 10:30 AM EST Office Visit Hematology [place] [address] Albania Chahal MD [facility] HEMATOLOGY/[place] [address] 06/05/2024 1:00 PM EST Appointment Hematology [place] [address] 06/26/2024 9:15 AM EST Laboratory Appointment Lab at [facility] Hematology Oncology [address] [place] [address] 06/26/2024 10:30 AM EST Office Visit Hematology [place] [address] Albania Chahal MD [facility] HEMATOLOGY/[place] [address] 06/26/2024 12:00 PM EST Appointment Hematology [place] [address] 07/17/2024 9:30 AM EST Laboratory Appointment Lab at [facility] Hematology [address] [address] 07/17/2024 10:30 AM EST Office Visit Hematology [place] [address] Albania Chahal MD [facility] DR [facility]/[place] [address] 07/17/2024 12:00 PM EST Appointment Hematology [place] [address] documented as of this encounter Procedures Procedure Name Priority Date/Time Associated Diagnosis Comments IMMUNOPHENOTYPING FLOW CYTOMETRY (NON-BLOOD) Routine 04/24/2024 8:22 AM EDT CYTOLOGY FNA [...] THAN THYROID Routine 04/24/2024 8:22 AM EDT [facility]bus Guided Sampl 3/> Node Station/Strux (12232) 04/24/2024 7:37 AM EDT Lymphadenopathy documented in this encounter Results * (ABNORMAL) Cytology FNA (04/24/2024 8:22 AM EDT) Case Report Medical Cytology Report ? Case: [id number] ? Authorizing Provider: ??Andrea Freeman MD ? Collected: ? 04/24/2024821 ? Ordering Location: ? Gastroenterology at [facility] ?? Received: ?04/24/2024842 ? Pathologist: ? Kedar Connor MD ? Specimen: ?Lung, Left Lower Lobe ? 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 Cell block was examined. See note. Note: The malignant cells have high nuclear to cytoplasmic ratios, hyperchromatic chromatin and occasional nucleoli and pseudoinclusions. By immunohistochemistry they show strong expression for keratin ([id number]) and squamous markers (p40, CK5) with patchy, [...] and radiological correlation is recommended. 1:14 PM EDT [facility] Specimen Adequacy Satisfactory for evaluation. 1:14 PM EDT [facility] Addendum PD-L1 Report Tissue: Lung, Left [...] The assay was performed according to the gate cutter's instructions using Anti-PD-L1 (22C3, pharmDX) antibody. 1:14 PM [facility] Addendum electronically signed by Kedar Connor MD on 05/14/2024 at 1:14 PM Additional Studies Task ID IHC/Special Stains Result A1-2 TTF1 Negative A1-3 p40 Positive A1-4 Synaptophysin Rare, weak positive A1-5 INSM1 Patchy positive A1-6 CD45 Negative A1-7 Ki-67 Positive >70% A1-8 [id number] Positive A1-9 RB1 Rare positive A1-10 Chromogranin A Rare, weak positive A1-11 CK5 Positive A1-12 NUT Negative A1-13 p16 Positive 1:14 PM [facility] Disclaimer(s) Formalin-fixed, paraffin-embedded tissue sections are [...] criteria and other diagnostic tests. 1:14 PM [facility] Clinical Information 68 y.o with mediastinal mass 1:14 PM [facility] Gross Description Received in formalin, approximately 20 mL total volume of cloudy, red fluid with clots. Total preparation: Cell Block: 1. 1:14 PM [facility] Result Note THIS RESULT REQUIR ES PHYSICIAN/MARVIN FOLLOW UP(A) 1:14 PM [facility] Fine Needle Aspirate STRUCTURE OF LOWER LOBE OF LEFT LUNG / Unknown Non Blood Collection / Unknown 04/24/2024 8:22 AM EDT 04/24/2024 8:43 AM EDT Andrea Freeman MD PATHOLOGY/CYTOLOGY O RDERABLES [facility] [place] [address] * (ABNORMAL) Cytology FNA (04/24/2024 8:22 AM EDT) Case Report Medical Cytology Report ? Case: [id number] ? Authorizing Provider: ??Andrea Freeman MD ? Collected: ? 04/24/2024821 ? Ordering Location: ? Gastroenterology at [facility] ?? Received: ?04/24/202443 ? Pathologist: ? Kedar Connor MD ? Specimen: ?Lymph Node, Station 7 ? 05/01/2024 12:53 PM EDT [facility] Specimen Source Lymph Node, Station 7, EBUS-guided FNA 05/01/2024 12:53 PM EDT [facility] Final Diagnosis Positive for malignancy 05/01/2024 12:53 PM EDT [facility] Diagnosis Discussion Poorly differentiated carcinoma. See [id number] for complete characterization. Cell block was examined. 05/01/2024 12:53 PM EDT [facility] Specimen Adequacy Satisfactory for evaluation. 05/01/2024 12:53 PM EDT [facility] Clinical Information 68 y.o with mediastinal mass 05/01/2024 12:53 PM EDT [facility] Gross Description Received in formalin, approximately 20 mL total volume of cloudy, pink fluid with clots. Total preparation: Cell Block: 1. 05/01/2024 12:53 PM EDT [facility] Result Note THIS RESULT REQUIRES PHYSICIAN/MARVIN FOLLOW UP(A) 05/01/2024 12:53 PM EDT [facility] Fine Needle Aspirate (Lymph Node, Station 7) Non Blood Collection / Unknown 04/24/2024 8:22 AM EDT 04/24/2024 8:43 AM EDT Andrea Freeman MD PATHOLOGY/CYTOLOGY O RDERABLES [facility] [place] [address] * (ABNORMAL) Cytology FNA (04/24/2024 8:22 AM EDT) Case Report Medical Cytology Report ? Case: [id number] ? Authorizing Provider: ??Andrea Freeman MD ? Collected: ? 04/24/2024821 ? Ordering Location: ? Gastroenterology at [facility] ?? Received: ?04/24/2024844 ? Pathologist: ? Kedar Connor MD ? Specimen: ?Lymph Node, Station 4R ? 05/01/2024 12:57 PM EDT [facility] Specimen Source Lymph Node, Station 4R, EBUS-guided FNA 05/01/2024 12:57 PM EDT [facility] Final Diagnosis Suspicious for malignancy 05/01/2024 12:57 PM [facility] Diagnosis Discussion There is a single cluster of highly atypical epithelioid cells which are morphologically similar to the malignant cells see in [id number]. The background contains lymphoid tissue. Cell block was examined. 05/01/2024 12:57 PM T [facility] Specimen Adequacy Satisfactory for evaluation. 05/01/2024 12:57 PM T [facility] Clinical Information 68 y.o with mediastinal mass 05/01/2024 12:57 PM T [facility] Gross Description Received in formalin, approximately 25 mL total volume of clear, pink fluid with clots. Total preparation: Cell Block: 1. 05/01/2024 12:57 PM [facility] Result Note THIS RESULT REQUIRES PHYSICIAN/MARVIN FOLLOW UP(A) 05/01/2024 12:57 PM EDT [facility] Fine Needle Aspirate (Lymph Node, Station 4R) Non Blood Collection / Unknown 04/24/2024 8:22 AM EDT 04/24/2024 8:45 AM EDT Andrea Freeman MD PATHOLOGY/CYTOLOGY O RDERABLES [facility] [place] [address] * Cytology FNA (04/24/2024 8:22 AM EDT) Case Report Medical Cytology Report ? Case: [id number] ? Authorizing Provider: ??Andrea Freeman MD ? Collected: ? 04/24/2024821 ? Ordering Location: ? Gastroenterology at [facility] ?? Received: ?04/24/2024 08 ? Pathologist: ? Kedar Connor MD ? Specimen: ?Lymph Node, Station 11R ? 05/01/2024 12:54 PM EDT [facility] Specimen Source Lymph Node, Station 11R, EBUS-guided FNA 05/01/2024 12:54 PM EDT [facility] Final Diagnosis Negative for malignancy 05/01/2024 12:54 PM EDT [facility] Diagnosis Discussion Consistent with benign lymph node sampling. Cell block was examined. 05/01/2024 12:54 PM EDT [facility] Specimen Adequacy Satisfactory for evaluation. 05/01/2024 12:54 PM EDT [facility] Clinical Information 68 y.o with mediastinal mass 05/01/2024 12:54 PM EDT [facility] Gross Description Received in formalin, approximately 20 mL total volume of cloudy, red fluid with clots. Total preparation: Cell Block: 1. 05/01/2024 12:54 PM EDT [facility] Result Note Routine 05/01/2024 12:54 PM EDT [facility] Fine Needle Aspirate (Lymph Node, Station 11R) Non Blood Collection / Unknown 04/24/2024 8:22 AM EDT 04/24/2024 8:44 AM EDT Andrea Freeman MD PATHOLOGY/CYTOLOGY O RDERABLES [facility] [place] [address] * Immunophenotyping Flow Cytometry (04/24/2024 8:22 AM EDT) Final Diagnosis - No phenotypically abnormal T-cell population detected, limited number of B-cells for assessment (see Comment). 04/25/2024 11:54 AM EDT [facility] Signing Pathologist This result has been reviewed by Misbah Hand DO on 04/25/24 at 11:54 AM. 04/25/2024 11:54 AM EDT [facility] Discussion Flow cytometry does not detect certain hematolymphoid malignancies and non-hematolymphoid malignancies. Correlation with pending morphology from the biopsy is recommended. 04/25/2024 11:54 AM EDT [facility] Interpretation B-cells were less than 30 in number, too few for adequate assessment. 04/25/2024 11:54 AM [facility] Lymphocyte % 15.0 % 04/25/2024 11:54 AM [facility] CD3+ % 52.0 % 04/25/2024 11:54 AM [facility] CD19+ % 1.0 % 04/25/2024 11:54 AM [facility] CD56+ % 43.0 % 04/25/2024 11:54 AM [facility] B-Cell:T-Cell Ratio 0.0 04/25/2024 11:54 AM [facility] [place]:Lambda Ratio 1.6 04/25/2024 11:54 AM [facility] CD4:CD8 Ratio 1.0 04/25/2024 11:54 AM [facility] Cell Viability % 68.2 % 04/25/20 11:54 AM [facility] Specimen Processing Cells for immunophenotypic analysis were derived from lung fine needle biopsy. The following markers were assessed: CD2, CD3, CD4, CD5, CD7, CD8, CD10, CD19, CD45, CD56, kappa light chain, and lambda light chain. 04/25/2024 11:54 AM [facility] Disclaimer Flow analysis is an ancillary study. A definite diagnosis requires correlation with the morphologic features of this process and if necessary, correlation with other ancillary studies like immunohistochemist ry, enzyme cytochemistry and/or cyto/molecular genetics. This test was developed and its performance characteristics determined by the Clinical Flow Cytometry Laboratory at [facility]. It has not been cleared or approved [...] complexity clinical laboratory testing. 04/25/2024 11:54 AM [facility] Clinical Information Lung nodules 04/25/2024 11:54 AM EDT [facility] Fine Needle Aspirate STRUCTURE OF LOWER LOBE OF LEFT LUNG / Unknown Non Blood Collection / Unknown 04/24/2024 8:22 AM EDT 04/24/2024 8:42 AM EDT Andrea Freeman MD HEMATOLOGY ORDERABLE S [facility] [place] [address] documented in this encounter Visit Diagnoses Not on filedocumented in this encounter Administered Medications Inactive Administered Medications - up to 3 most recent administrations Medication Order MAR Action Action Date Dose Rate Site lactated ringers infusion 100 mL/hr, Intravenous, CONTINUOUS, Starting on Cherelle 04/24/24 at 0730, Until Cherelle 04/24/24 at 0900, Endoscopy (Day of Procedure) Restarted 04/24/2024 7:34 AM EDT New Bag 04/24/2024 7:22 AM EDT 100 mL/hr 100 mL/hr documented in this encounter Active and Recently Administered Medications Times are shown in EDT. Continuous Medication Order 04/22/2024 04/23/2024 04/24/2024 lactated ringers infusion (CANCELED) 100 mL/hr, Intravenous, CONTINUOUS, Starting on Cherelle 04/24/24 at 0730, Until Cherelle 04/24/24 at 0900, Endoscopy (Day of Procedure) 0722 (New Bag - Prov ider: Rosamaria Garcia RN)0733 (Paused - Provider: Joann Dalton CRNA - Comment: Switch to gravity)0734 (Restarted - Provider: Joann Dalton CRNA)0808 (Anesthesia Volume Adjustment - Provider: Joann Dalton CRNA)0819 (Anesthesia Volume Adjustment - Provider: Joann Dalton CRNA) documented in this encounter Care Teams Vending Machine Repairer Relationship Specialty Start Date End Date America Caro MD [address] [place] [address] PCP - General Family Medicine 03/31/24 documented as of this encounter
--- OUTSIDE RECORDS SUMMARY | 2024-05-23 01:23 | XMS_ITS | Encounter Summary ---
Author Organization Formerly [facility] [place] [address] Care Team Providers Care Rfid Specialist Name Role Phone America Caro MD Primary Care Provider [phone] Encounter Details Date Type Department Care Team (Late st Contact Info) Description 04/21/2024 [place]phone [place] [address] Andrea Freeman MD [facility] [place] [address] Social History Tobacco Use Types Packs/Day Years Used Date Smoking Tobacco: Former Pipe Passive Smoke Exposure: Past Smokeless Tobacco: Never Comments:Smoke pipe for 10 y ears since 13 years old, Does still smoke pot but is slowing down. Passive Exposure Comments:Second hand smoke since 5929-0116 Sex and Gender Information Value Date Recorded Sex Assigned at Not on file Gender Identity Not on file Sexual Orientation Not on file documented as of this encounter Miscellaneous Notes * Telephone Encounter - Andrea Freeman MD - 04/21/2024 1:19 PM EDT Images from the original note were not included. Interventional Pulmonology Telephone Encounter: I called Mr. Henry Javier on 04/21/2024 at 1:19 PM. We discussed the results from his recent thoracentesis which was ultimately negative for malignant cells. He understands we remain very concernedfor the possibility of metastatic disease with potential leading etiologies including primary lung cancer and lymphoma. He does feel meaningfully improved following his thoracentesis and the effect has not waned. He understands that the effusions may recur over the coming days and we discussed options including indwelling pleural catheter versus pleurodesis. He understands we suspect malignant pericardial effusion (seeing [place]ology [place] [facility] [place] and that if his dyspnea worsens he would need urgent evaluation to ensure the pericardial effusion is not expanding/requiring pericardial drain placement and admission. I reviewed his case today with our thoracic surgery team to discuss the role of going straight to VATS with pleural biopsies +/- wedge resection of a peripheral BALDOMERO nodule +/-anterior mediastinal mass biopsy +/- pleurodesis versus starting with bronchoscopy with EBUS-TBNA of the FDG avid LLL nodule abutting the superior segment bronchus. Our surgeons favor starting with the bronchoscopy which we will arrange for hopefully this week. His L pleural effusion can be re-evaluated with ultrasound at that time. If EBUS is non-diagnostic, then surgery would be the next step. Mr. Javier is in agreement with this plan. He was provided ample time to ask questions which were answered to his liking. Andrea Freeman MD, 04/21/2024, 1:19 PM Interventional Pulmonology Section of Pulmonary & Critical Care Pager: [phone] documented in this encounter Plan of Treatment Upcoming Encounters Date Type Department Care Team (Late st Contact Info) Description 05/23/2024 9:30 AM EST Infusion Hematology Oncology at [address] [address] 05/30/2024 9:00 AM EST Infusion Hematology Oncology at [address] [address] 06/05/2024 9:15 AM EST Laboratory Appointment Lab at [facility] Hematology Oncology [address] [place] [address] 06/05/2024 10:30 AM EST Office Visit Hematology [place] [address] Albania Chahal MD [facility] HEMATOLOGY/[place] [address] 06/05/2024 1:00 PM EST Appointment Hematology [place] [address] 06/26/2024 9:15 AM EST Laboratory Appointment Lab at [facility] Hematology Oncology [address] [place] [address] 06/26/2024 10:30 AM EST Office Visit Hematology [place] [address] Albania Chahal MD [facility] HEMATOLOGY/[place] [address] 06/26/2024 12:00 PM EST Appointment Hematology [place] [address] 07/17/2024 9:30 AM EST Laboratory Appointment Lab at [facility] Hematology Oncology [address] [place] [address] 07/17/2024 10:30 AM EST Office Visit Hematology [place] [address] Albania Chahal MD [facility] HEMATOLOGY/[place] [address] 07/17/2024 12:00 PM EST Appointment Hematology [place] [address] documented as of this encounter Visit Diagnoses Not on filedocumented in this encounter Care Teams Rfid Specialist Relationship Specialty Start Date End Date America Caro MD [address] [place] [address] PCP - General Family Medicine 03/31/24 documented as of this encounter
--- OUTSIDE RECORDS SUMMARY | 2024-05-23 01:23 | XMS_ITS | Encounter Summary ---
Author Organization [facility] [place] [address] Care Team Providers Care Foreign Car Mechanic Name Role Phone America Caro MD Primary Care Provider [phone] Encounter Details Date Type Department Care Team (Late st Contact Info) Description 04/24/2024 7:30 AM EDT - 04/24/2024 8:40 AM EDT Surgery [place] [address] BackerAndrea MD [facility] [place] [address] BRONCH, W ENDOBRONCHIAL ULTRASOUND (EBUS) GUIDED SAMPLING, 3+ NODES (WRVU 4.96) Social History Tobacco Use Types Packs/Day Years Used Date Smoking Tobacco: Former Pipe Passive Smoke Exposure: Past Smokeless Tobacco: Never Comments:Smoke pipe for 10 y ears since 13 years old, Does still smoke pot but is slowing down. Passive Exposure Comments:Second hand smoke since 1654-9833 Alcohol Use Standard Drinks/Week Comments Yes 14 (1 standard drink = 0.6 oz pure alcohol) hardly any for the last month Sex and Gender Information Value Date Recorded Sex Assigned at Not on file Gender Identity Not on file Sexual Orientation Not on file documented as of this encounter Last Filed Vital Signs Vital Sign Reading Time Taken Comments Blood Pressure 94/60 04/24/2024 8:40 AM EDT Pulse 72 04/24/2024 7:08 AM EDT Temperature 36.4 ??C (97.5 ??F) 04/24/2024 8:35 AM ED T Respiratory Rate 20 04/24/2024 8:40 AM EDT Oxygen Saturation 99% 04/24/2024 8:40 AM EDT Inhaled Oxygen Concentration - - Weight 62.6 kg (138 lb) 04/24/2024 7:08 AM EDT Height 160 cm (5' 3) 04/24/2024 7:08 AM EDT Body Mass Index 24.45 04/24/2024 7:08 AM EDT documented in this encounter Discharge Instructions * Discharge Instructions* Sarah Feldman, RN - 04/24/2024 8:35 AM EDT Bronchoscopy: [...] your doctor if you can take an yfqa-uts-wsggnva medicine. If you think your pain medicine [...] more? Visit our health information library at [email or web address]. You can also view health information on [employer], your personal patient account. Log in or sign uptoday. Enter S288 in the search box to learn more about Bronchoscopy: What to Expect at Home. Current as of: December 22, 2018 Content Version: 12.2 ?? 0629-4667 [employer]. Care instructions adapted under license by [facility]. If you have questions about a medical condition or this instruction, always ask your healthcare professional. [employer] disclaims any warranty or liability for your [...] Section of Pulmonary & Critical Care Pager: [phone] documented in this encounter Miscellaneous Notes * [...] the procedure. Procedure Descriptions: Airway Examination: A [employer] EB-580S (5.3 mm) flexible bronchoscope was used [...] [see below]). . EBUS-TBNA (4 sites): The [employer] EBUS (EB-530US) scope was inserted, lymph node [...] Station 4L was <5 mm. Therapeutic Suctioning (05084): A significant portion of operative time was spent clearing out the airway of debris, blood and secretions prior to or during the intervention. Chest Ultrasound with Interpretation (29128/modifier 26): The patient was placed in a supine position and a bilateral lateral (limited) chest cmiir-cy-mipu ultrasound was performed. No pleural effusion was [...] Section of Pulmonary & Critical Care Pager: [phone] documented in this encounter Plan of Treatment Upcoming Encounters Date Type Department Care Team (Late st Contact Info) Description 05/23/2024 9:30 AM EST Infusion Hematology Oncology at [address] [address] 05/30/2024 9:00 AM EST Infusion Hematology Oncology at [address] [address] 06/05/2024 9:15 AM EST Laboratory Appointment Lab at [facility] Hematology Oncology [address] [place] [address] 06/05/2024 10:30 AM EST Office Visit Hematology [place] [phone] Albania Chahal MD [facility] HEMATOLOGY/[place] [address] 06/05/2024 1:00 PM EST Appointment Hematology [place] [phone] 06/26/2024 9:15 AM EST Laboratory Appointment Lab at [facility] Hematology Oncology [address] [place] [address] 06/26/2024 10:30 AM EST Office Visit Hematology [place] [phone] Albania Chahal MD [facility] HEMATOLOGY[place] [address] 06/26/2024 12:00 PM EST Appointment Hematology [place] [address] 07/17/2024 9:30 AM EST Laboratory Appointment Lab at [facility] Hematology Oncology [address] [place] [address] 07/17/2024 10:30 AM EST Office Visit Hematology [place] [address] Ablania Chahal MD [facility] [address] [place] [address] 07/17/2024 12:00 PM EST Appointment Hematology [place] [phone] documented as of this encounter Procedures Procedure [...] THAN THYROID Routine 04/24/2024 8:22 AM EDT [facility] Ebus Guided Sampl 3/> Node Station/Strux (84421) 04/24/2024 7:37 AM EDT Lymphadenopathy documented in this encounter Results * (ABNORMAL) Cytology FNA (04/24/2024 8:22 AM EDT) Case Report Medical Cytology Report ? Case: [id number] ? Authorizing Provider: ??Andrea Freeman MD ? Collected: ? 04/24/2024821 ? Ordering Location: ? Gastroenterology at [facility] ?? Received: ?04/24/2024842 ? Pathologist: ? Kedar Connor MD ? Specimen: ?Lung, Left Lower Lobe ? 1:[address] [facility] Specimen Source Lung, Left Lower Lobe, EBUS-guided FNA 1:[address] [facility] Final Diagnosis Positive for malignancy 1:[address] 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 Cell block was examined. See note. Note: The malignant cells have high nuclear to cytoplasmic ratios, hyperchromatic chromatin and occasional nucleoli and pseudoinclusions. By immunohistochemistry they show strong expression for keratin ([id number]) and squamous markers (p40, CK5) with patchy, [...] radiological correlation is recommended. 1:[address] [facility] Specimen Adequacy Satisfactory for evaluation. 1:[address] [facility] Addendum PD-L1 Report Tissue: Lung, [...] The assay was performed according to the vice chair's instructions using Anti-PD-L1 (22C3, pharmDX) antibody. 4 1:[address] [facility] Addendum electronically signed by Kedar Connor MD on 05/14/2024 at 1:14 PM Additional Studies Task ID IHC/Special Stains Result A1-2 TTF1 Negative A1-3 p40 Positive A1-4 Synaptophysin Rare, weak positive A1-5 INSM1 Patchy positive A1-6 CD45 Negative A1-7 Ki-67 Positive >70% A1-8 [id number] Positive A1-9 RB1 Rare positive A1-10 Chromogranin A Rare, weak positive A1-11 CK5 Positive A1-12 NUT Negative A1-13 p16 Positive 4 1:[address] [facility] Disclaimer(s) Formalin-fixed, paraffin-embedded tissue sections [...] morphology, histopathological criteria and other diagnostic tests. 4 1:[address] [facility] Clinical Information 68 y.o with mediastinal mass 4 1:[address] [facility] Gross Description Received in formalin, approximately 20 mL total volume of cloudy, red fluid with clots. Total preparation: Cell Block: 1. 4 1:[address] [facility] Result Note THIS RESULT REQUIR ES PHYSICIAN/MARVIN FOLLOW UP(A) 4 1:[address] [facility] Fine Needle Aspirate STRUCTURE OF LOWER LOBE OF LEFT LUNG / Unknown Non Blood Collection / Unknown 04/24/2024 8:22 AM EDT 04/24/2024 8:43 AM EDT Andrea Freeman MD PATHOLOGY/CYTOLOGY O RDERABLES [facility] [place] [address] * (ABNORMAL) Cytology FNA (04/24/2024 8:22 AM EDT) Case Report Medical Cytology Report ? Case: [id number] ? Authorizing Provider: ??Andrea Freeman MD ? Collected: ? 04/24/2024821 ? Ordering Location: ? Gastroenterology at [facility] ?? Received: ?04/24/2024842 ? Pathologist: ? Kedar Connor MD ? Specimen: ?Lymph Node, Station 7 ? 05/01/2024 12:[address] [facility] Specimen Source Lymph Node, Station 7, EBUS-guided FNA 05/01/2024 12:[address] [facility] Final Diagnosis Positive for malignancy 05/01/2024 12:[address] [facility] Diagnosis Discussion Poorly differentiated carcinoma. See [id number] for complete characterization. Cell block was examined. 05/01/2024 12:[address] [facility] Specimen Adequacy Satisfactory for evaluation. 05/01/2024 12:[address] [facility] Clinical Information 68 y.o with mediastinal mass 05/01/2024 12:[address] [facility] Gross Description Received in formalin, approximately 20 mL total volume of cloudy, pink fluid with clots. Total preparation: Cell Block: 1. 05/01/2024 12:[address] [facility] Result Note THIS RESULT REQUIRES PHYSICIAN/MARVIN FOLLOW UP(A) 05/01/2024 12:[address] [facility] Fine Needle Aspirate (Lymph Node, Station 7) Non Blood Collection / Unknown 04/24/2024 8:22 AM EDT 04/24/2024 8:43 AM EDT Andrea Freeman MD PATHOLOGY/CYTOLOGY O RDERABLES [facility] [address] * (ABNORMAL) Cytology FNA (04/24/2024 8:22 AM EDT) Case Report Medical Cytology Report ? Case: [id number] ? Authorizing Provider: ??nAdrea Freeman MD ? Collected: ? 04/24/2024 0822 ? Ordering Location: ? Gastroenterology at [facility] ?? Received: ?04/24/2024 0845 ? Pathologist: ? Kedar Connor MD ? Specimen: ?Lymph Node, Station 4R ? 05/01/2024 12:[address] [facility] Specimen Source Lymph Node, Station 4R, EBUS-guided FNA 05/01/2024 12:[address] [facility] Final Diagnosis Suspicious for malignancy 05/01/2024 12:[address] [facility] Diagnosis Discussion There is a single cluster of highly atypical epithelioid cells which are morphologically similar to the malignant cells see in [id number]. The background contains lymphoid tissue. Cell block was examined. 05/01/2024 12:[address] [facility] Specimen Adequacy Satisfactory for evaluation. 05/01/2024 12:[address] [facility] Clinical Information 68 y.o with mediastinal mass 05/01/2024 12:[address] [facility] Gross Description Received in formalin, approximately 25 mL total volume of clear, pink fluid with clots. Total preparation: Cell Block: 1. 05/01/2024 12:[address] [facility] Result Note THIS RESULT REQUIRES PHYSICIAN/MARVIN FOLLOW UP(A) 05/01/2024 12:[address] [facility] Fine Needle Aspirate (Lymph Node, Station 4R) Non Blood Collection / Unknown 04/24/2024 8:22 AM EDT 04/24/2024 8:45 AM EDT Andrea Freeman MD PATHOLOGY/CYTOLOGY O RDERABLES [facility] [place] [address] * Cytology FNA (04/24/2024 8:22 AM EDT) Case Report Medical Cytology Report ? Case: [id number] ? Authorizing Provider: ??Andrea Freeman MD ? Collected: ? 04/24/2024821 ? Ordering Location: ? Gastroenterology at [facility] ?? Received: ?04/24/2024843 ? Pathologist: ? Kedar Connor MD ? Specimen: ?Lymph Node, Station 11R ? 05/01/2024 12:[address] [facility] Specimen Source Lymph Node, Station 11R, EBUS-guided FNA 05/01/2024 12:[address] [facility] Final Diagnosis Negative for malignancy 05/01/2024 12:[address] [facility] Diagnosis Discussion Consistent with benign lymph node sampling. Cell block was examined. 05/01/2024 12:[address] [facility] Specimen Adequacy Satisfactory for evaluation. 05/01/2024 12:[address] [facility] Clinical Information 68 y.o with mediastinal mass 05/01/2024 12:[address] [facility] Gross Description Received in formalin, approximately 20 mL total volume of cloudy, red fluid with clots. Total preparation: Cell Block: 1. 05/01/2024 12:[address] [facility] Result Note Routine 05/01/2024 12:[address] [facility] Fine Needle Aspirate (Lymph Node, Station 11R) Non Blood Collection / Unknown 04/24/2024 8:22 AM EDT 04/24/2024 8:44 AM EDT Andrea Freeman MD PATHOLOGY/CYTOLOGY O RDERABLES [facility] [address] * Immunophenotyping Flow Cytometry (04/24/2024 8:22 AM EDT) Final Diagnosis - No phenotypically abnormal T-cell population detected, limited number of B-cells for assessment (see Comment). 04/25/2024 11:[address] [facility] Signing Pathologist This result has been reviewed by Misbah Hand DO on 04/25/24 at 11:54 AM. 04/25/2024 11:[address] [facility] Discussion Flow cytometry does not detect certain hematolymphoid malignancies and non-hematolymphoid malignancies. Correlation with pending morphology from the biopsy is recommended. 04/25/2024 11:[address] [facility] Interpretation B-cells were less than 30 in number, too few for adequate assessment. 04/25/2024 11:[address] [facility] Lymphocyte % 15.0 % 04/25/2024 11:[address] [facility] CD3+ % 52.0 % 04/25/2024 11:[address] [facility] CD19+ % 1.0 % 04/25/2024 11:[address] [facility] CD56+ % 43.0 % 04/25/2024 11:[address] [facility] B-Cell:T-Cell Ratio 0.0 04/25/2024 11:[address] [facility] Millen:Lambda Ratio 1.6 04/25/2024 11:[address] [facility] CD4:CD8 Ratio 1.0 04/25/2024 11:[address] [facility] Cell Viability % 68.2 % 04/25/20 11:[address] [facility] Specimen Processing Cells for immunophenotypic analysis were derived from lung fine needle biopsy. The following markers were assessed: CD2, CD3, CD4, CD5, CD7, CD8, CD10, CD19, CD45, CD56, kappa light chain, and lambda light chain. 04/25/2024 11:[address] [facility] Disclaimer Flow analysis is an ancillary study. A definite diagnosis requires correlation with the morphologic features of this process and if necessary, correlation with other ancillary studies like immunohistochemist ry, enzyme cytochemistry and/or cyto/molecular genetics. This test was developed and its performance characteristics determined by the Clinical Flow Cytometry Laboratory at [facility]. It has not been cleared or approved [...] complexity clinical laboratory testing. 04/25/2024 11:[address] [facility] Clinical Information Lung nodules 04/25/2024 11:[address] [facility] Fine Needle Aspirate STRUCTURE OF LOWER LOBE OF LEFT LUNG / Unknown Non Blood Collection / Unknown 04/24/2024 8:22 AM EDT 04/24/2024 8:42 AM EDT Andrea Freeman MD HEMATOLOGY ORDERABLE S [facility] [place] [address] documented in this encounter Visit Diagnoses Diagnosis Lymphadenopathy Enlargement of lymph nodes documented in this encounter Administered Medications Inactive [...] CRNA) documented in this encounter Care Teams Foreign Car Mechanic Relationship Specialty Start Date End Date America Caro MD [address] [place] [address] PCP - General Family Medicine 03/31/24 documented as of this encounter
--- OUTSIDE RECORDS SUMMARY | 2024-05-23 01:23 | XMS_ITS | Encounter Summary ---
Author Organization [facility] Address [facility] [place] [address] Care Team Providers Care Process Line Operator Name Role Phone America Caro MD Primary Care Provider [phone] Encounter Details Date Type Department Care Team (Latest Contact Info) Description 04/16/2024 12:45 PM EDT - 04/16/2024 11:59 PM EDT Hospital Encounter XRay at [address] [place] [address] Seven Saha MD [facility] [place] [address] Pleural effusion, bilateral Discharge Disposition: Home Social History Tobacco Use Types Packs/Day Years Used Date Smoking Tobacco: Former Pipe Passive Smoke Exposure: Past Smokeless Tobacco: Never Comments:Smoke pipe for 10 y ears since 13 years old, Does still smoke pot but is slowing down. Passive Exposure Comments:Second hand smoke since 1832-9846 Sex and Gender Information Value Date Recorded Sex Assigned at Not on file Gender Identity Not on file Sexual Orientation Not on file documented as of this encounter Medications at Time of Discharge Medication Sig Dispensed Refills Start Date End Date cholecalciferol, Vitamin D3, 25 mcg (1,000 unit) [...] 9:30 AM EST Infusion Hematology Oncology at [address] [address] 05/30/2024 9:00 AM EST Infusion Hematology Oncology at [address] [address] 06/05/2024 9:15 AM EST Laboratory Appointment Lab at [facility] Hematology Oncology [address] [place] [address] 06/05/2024 10:30 AM EST Office Visit Hematology [place] [address] Albania Chahal MD [facility] HEMATOLOGY/[place] [address] 06/05/2024 1:00 PM EST Appointment Hematology [place] [address] 06/26/2024 9:15 AM EST Laboratory Appointment Lab at [facility] Hematology Oncology [address] [place] [address] 06/26/2024 10:30 AM EST Office Visit Hematology [place] [address] Albania Chahal MD [facility] HEMATOLOGY[place] [address] 06/26/2024 12:00 PM EST Appointment Hematology [place] [address] 07/17/2024 9:30 AM EST Laboratory Appointment Lab at [facility] Hematology Oncology [address] [place] [address] 07/17/2024 10:30 AM EST Office Visit Hematology [place] [address] Albania Chahal MD [facility] HEMATOLOGY/[place] [address] 07/17/2024 12:00 PM EST Appointment Hematology and Oncology at [facility] [place] [phone] documented as of this encounter Procedures Procedure Name Priority Date/Time Associated Diagnosis Comments XR CHEST PA AND LATERAL Routine 04/16/2024 1:08 PM EDT Pleural effusion, bilateral documented in this encounter Results * XR Chest PA & Lateral (Generic) (04/16/2024 1:08 PM EDT) WORKSTATION ID [id number] RAD Anatomical Region Laterality Modality Chest N/A Digital Radiogra phy Impressions 04/16/2024 1:44 PM EDT Trace posterior pleural effusions. No pneumothorax. Thank you for letting us participate in the care of this patient. ??If you are a health care provider and have any questions regarding this report, please contact the number below. ??For patients who have questions please contact the health managed care manager that requested your imaging first. ? Electronically signed by: JOSE ROBERTO CHAPIN MD, [facility] ([phone]), at 04/16/2024 1:44 PM Narrative 04/16/2024 1:44 [...] patients who have questions please contactthe health managed care manager that requested your imaging first. Electronically signed by: JOSE ROBERTO CHAPIN MD, [facility]([phone]), at 04/16/2024 1:44 PM Seven Saha MD IMG DX ORDERABLES documented in this encounter Visit Diagnoses Diagnosis Pleural effusion, bilateral Unspecified pleural effusion documented in this encounter Care Teams Process Line Operator Relationship Specialty Start Date End Date America Caro MD [address] [place] [address] PCP - General Family Medicine 03/31/24 documented as of this encounter
--- OUTSIDE RECORDS SUMMARY | 2024-05-23 01:23 | XMS_ITS | Encounter Summary ---
Author Organization [facility] Address [facility] [place] [address] Care Team Providers Care City Planner Name Role Phone America Caro MD Primary Care Provider [phone] Encounter Details Date Type Department Care Team (Latest Contact Info) Description 05/04/2024 Travel Social History Tobacco Use Types Packs/Day Years Used Date Smoking Tobacco: Former Pipe Passive Smoke Exposure: Past Smokeless Tobacco: Never Comments:Smoke pipe for 10 y ears since 13 years old, Does still smoke pot but is slowing down. Passive Exposure Comments:Second hand smoke since 3882-8177 Alcohol Use Standard Drinks/Week Comments Yes 14 (1 standard drink = 0.6 oz pure alcohol) hardly any for the last month B1300 Health Literacy Answer Date Recor ded How often do you need to hav e someone help you when you read instructions, pamphlets, or other written material from your doctor or pharmacy? Never 05/04/2024 [facility] Utilities Answer Date Recorded In the past 12 months has [employer], gas, oil, or water [employer] threatened to shut off services in your [...] time in the past 12 m [place], were you homeless or living in a [place] health care facility (including now)? No 05/04/2024 Sex and Gender Information Value Date Recorded Sex Assigned at Not on file Gender Identity Not on file Sexual Orientation Not on file documented as of this encounter Plan of Treatment Upcoming Encounters Date Type Department Care Team (Late st Contact Info) Description 05/23/2024 9:30 AM EST Infusion Hematology Oncology at [address] [address] 05/30/2024 9:00 AM EST Infusion Hematology Oncology at [address] [address] 06/05/2024 9:15 AM EST Laboratory Appointment Lab at [facility] Hematology Oncology [address] [place] [address] 06/05/2024 10:30 AM EST Office Visit Hematology [place] [address] Albania Chahal MD [facility] HEMATOLOGY[place] [address] 06/05/2024 1:00 PM EST Appointment [place]ology [place] [address] 06/26/2024 9:15 AM EST Laboratory Appointment Lab at [facility] Hematology Oncology [address] [place] [address] 06/26/2024 10:30 AM EST Office Visit [place]ology [place] [address] Albania Chahal MD [facility] HEMATOLOGY[place] [address] 06/26/2024 12:00 PM EST Appointment H[place]ology [place] [address] 07/17/2024 9:30 AM EST Laboratory Appointment Lab at [facility] Hematology Oncology [address] [place] [address] 07/17/2024 10:30 AM EST Office Visit [place] [address] Albania Chahal MD [facility] HEMATOLOGY[place] [address] 07/17/2024 12:00 PM EST Appointment [place] [address] documented as of this encounter Visit Diagnoses Not on filedocumented in this encounter Care Teams City Planner Relationship Specialty Start Date End Date America Caro MD [address] [place] [address] PCP - General Family Medicine 03/31/24 documented as of this encounter
--- OUTSIDE RECORDS SUMMARY | 2024-05-23 01:23 | XMS_ITS | Encounter Summary ---
[place] [address] Care Team Providers Care Residential Mortgage Manager Name Role Phone America Caro MD Primary Care Provider [phone] Encounter Details Date Type Department Care Team (Latest Contact Info) Description 05/06/2024 12:00 PM EDT Laboratory Appointment Lab at [facility] Hematology Oncology [address] [place] [address] Non-small cell lung cancer, unspecified laterality Social History Tobacco Use Types Packs/Day Years Used Date Smoking Tobacco: Former Pipe Passive Smoke Exposure: Past Smokeless Tobacco: Never Comments:Smoke pipe for 10 y ears since 13 years old, Does still smoke pot but is slowing down. Passive Exposure Comments:Second hand smoke since 7068-3358 Alcohol Use Standard Drinks/Week Comments Yes 14 (1 standard drink = 0.6 oz pure alcohol) hardly any for the last month B1300 Health Literacy Answer Date Recor ded How often do you need to hav e someone help you when you read instructions, pamphlets, or other written material from your doctor or pharmacy? Never 05/04/2024 [facility] Utilities Answer Date Recorded In the past 12 months has [employer], gas, oil, or water company threatened [...] 9:30 AM EST Infusion Hematology Oncology at [address] [address] 05/30/2024 9:00 AM EST Infusion Hematology Oncology at [address] [address] 06/05/2024 9:15 AM EST Laboratory Appointment Lab at [facility] Hematology Oncology [address] [place] [address] 06/05/2024 10:30 AM EST Office Visit Hematology [place] [address] [facility] HEMATOLOGY/[place] [address] 06/05/2024 1:00 PM EST Appointment Hematology [place] [address] 06/26/2024 9:15 AM EST Laboratory Appointment Lab at [facility] Hematology Oncology [address] [place] [address] 06/26/2024 10:30 AM EST Office Visit Hematology [place] [address] [facility] HEMATOLOGY/[place] [address] 06/26/2024 12:00 PM EST Appointment Hematology [place] [address] 07/17/2024 9:30 AM EST Laboratory Appointment Lab at [facility] Hematology Oncology [address] [place] [address] 07/17/2024 10:30 AM EST Office Visit Hematology [place] [address] [facility] HEMATOLOGY/[place] [address] 07/17/2024 12:00 PM EST Appointment Hematology [place] [address] Pending Results Name Type Priority Associated Diagnoses Date /Time Miscellaneous Lab request Lab Routine Non-small cell lung cancer, unspecified laterality 05/06/2024 12:14 PM EDT documented as of this encounter Procedures Procedure Name Priority Date/Time Associated Diagnosis Comments CBC (WITH DIFF) Routine 05/06/2024 12:15 PM EDT Non-small cell lung cancer, unspecified laterality LACTATE DEHYDROGENASE Routine 05/06/2024 12:15 PM EDT Non-small cell lung cancer, unspecified laterality COMPREHENSIVE METABOLIC PANEL Routine 05/06/2024 12:15 PM EDT Non-small cell lung cancer, unspecified laterality documented in this encounter Results * (ABNORMAL) Lactate Dehydrogenase (05/06/2024 12:15 PM EDT) Lactate Dehydrogenase 257(H) 110 - 220 unit/L 05/06/2024 1:06 PM EDT [facility] Blood VENOUS BLOOD SPECIMEN / Unknown Venipuncture / Unknown 05/06/2024 12:15 PM EDT 05/06/2024 12:15 PM EDT Albania Schumacher Maicol Dutton MD CHEMISTRY ORDERA BLES [facility] [place] [address] * (ABNORMAL) Comprehensive metabolic panel Non-fasting (05/06/2024 12:15 PM EDT) Glucose 97 65 - 199 mg/dL 05/06/2024 1:18 PM EDT [facility] Comment:Glucose Concentratio n >=200 mg/dL plus symptoms is consistent with Diabetes Mellitus. Blood Urea Nitrogen 19 10 - 20 mg/dL 05/06/2024 1:18 PM EDT [facility] Creatinine 0.79(L) 0.80 - 1.50 mg/dL 05/06/2024 1:18 PM EDT [facility] Sodium 133(L) 135 - 145 mMol/L 05/06/2024 1:18 PM EDT [facility] Potassium 4.9 3.5 - 5.0 mMol/L 05/06/2024 1:18 PM EDT [facility] Chloride 96(L) 98 - 107 mMol/L 05/06/2024 1:18 PM EDT [facility] Carbon Dioxide 27 22 - 31 mMol/L 05/06/2024 1:18 PM EDT [facility] Anion Gap 10 5 - 15 mMol/L 05/06/2024 1:18 PM EDT [facility] Calcium 9.8 8.5 - 10.5 mg/dL 05/06/2024 1:18 PM EDT [facility] Protein, Total 8.4(H) 6.1 - 8.0 g/dL 05/06/2024 1:18 PM EDT [facility] Albumin 3.9 3.2 - 5.2 g/dL 05/06/2024 1:18 PM EDT [facility] Aspartate Aminotransferase 33 <=39 unit/L 05/06/2024 1:18 PM EDT [facility] Alanine Aminotransferase 34 0 - 55 unit/L 05/06/2024 1:18 PM EDT [facility] Alkaline Phosphatase 265(H) 40 - 130 unit/L 05/06/2024 1:18 PM EDT [facility] Bilirubin, Total 0.4 <=1.3 mg/dL [facility]/06[facility]24 [facility] Est Glomerular Filtration Rate - Male 96 mL/min/1. 73 m?? 05/06/2024 1:18 PM EDT [facility] Comment: This patient's estimated GFR [...] Fasting Status No 05/06/2024 1:18 PM EDT [facility] Blood VENOUS BLOOD SPECIMEN / Unknown Venipuncture / Unknown 05/06/2024 12:15 PM EDT 05/06/2024 12:15 PM EDT Albania Dutton MD CHEMISTRY ORDERA BLES [facility] [place] [address] * (ABNORMAL) CBC (with Diff) (05/06/2024 12:15 PM EDT) White Blood Cell 9.45 4.00 - 9.50 x10(3)/mc L 05/06/2024 12:33 PM EDT [facility] Red Blood Cell 4.99 4.58 - 5.54 x10(6)/mc L 05/06/2024 12:33 PM [facility] Hemoglobin 12.9(L) 13.7 - 16.5 g/dL 05/06/2024 12:33 PM [facility] Hematocrit 40.2(L) 40.5 - 48.5 % 05/06/2024 12:33 PM [facility] Mean Cell Volume 80.6(L) 82.9 - 93.1 fL 05/06/2024 12:33 PM [facility] Mean Cell Hemoglobin 25.9(L) 27.5 - 32.1 pg 05/06/2024 12:33 PM [facility] Mean Cell Hemoglobin Concentration 32.1 32.0 - 35.7 g/dL 05/06/2024 12:33 PM [facility] Platelet 689(H) 145 - 357 x10(3)/mc L 05/06/2024 12:33 PM [facility] Mean Platelet Volume 8.5 7.6 - 12.9 fL 05/06/2024 12:33 PM [facility] RDW Standard Deviation 44.5 36.0 - 45.0 fL 05/06/2024 12:33 PM [facility] RDW coefficient of variation 15.2(H) 11.4 - 13.8 % 05/06/2024 12:33 PM [facility] NRBC% auto 0.0 % 05/06/2024 12:33 PM [facility] NRBC Absolute <0.01 <0.01 x10(3)/mc L 05/06/2024 12:33 PM EDT [facility] Neutrophil % 81.1 % 05/06/2024 12:33 PM EDT [facility] Neutrophil Absolute (ANC) - Automated 7.65(H) 1.70 - 6.10 x10(3)/mc L 05/06/2024 12:33 PM EDT [facility] Lymph % 11.6 % 05/06/2024 12:33 PM EDT [facility] Lymph Absolute 1.10 0.90 - 3.20 x10(3)/mc L 05/06/2024 12:33 PM EDT [facility] Monocyte % 6.2 % 05/06/2024 12:33 PM EDT [facility] Monocyte Absolute 0.59 0.30 - 0.90 x10(3)/mc L 05/06/2024 12:33 PM EDT [facility] Eos % 0.2 % 05/06/2024 12:33 PM EDT [facility] Eos Absolute <0.04 0.00 - 0.40 x10(3)/mc L 05/06/2024 12:33 PM EDT [facility] Basophil % 0.4 % 05/06/2024 12:33 PM EDT [facility] Baso Absolute 0.04 0.00 - 0.10 x10(3)/mc L 05/06/2024 12:33 PM EDT [facility] Immature Gran % 0.5 % 12:33 PM EDT [facility] Immature Gran Absolute 0.05(H) 0.00 - 0.04 x10(3)/mc L 05/06/2024 12:33 PM EDT [facility] Blood VENOUS BLOOD SPECIMEN / Unknown Venipuncture / Unknown 05/06/2024 12:15 PM EDT 05/06/2024 12:15 PM EDT Albania Dutton MD HEMATOLOGY ORDER [facility] [place] [address] documented in this encounter Visit Diagnoses Diagnosis Non-small cell lung cancer, unspecified laterality documented in this encounter Care Teams Residential Mortgage Manager Relationship Specialty Start Date End Date America Caro MD [address] [place] [address] PCP - General Family Medicine 03/31/24 documented as of this encounter
--- OUTSIDE RECORDS SUMMARY | 2024-05-23 01:23 | XMS_ITS | Encounter Summary ---
Author [place] [address] Care Team Providers Care Plastic Technician Name Role Phone America Caro MD Primary Care Provider [phone] Reason for Referral * Diagnostic Test (Routine) - Closed Specialty Diagnoses / Procedures Referred By Contac t Referred To Contact Radiology Diagnoses Multiple nodules of lung Procedures NM PET CT Skull Base to Mid-thigh America Caro MD [address] [place] [address] [place] [address] Referral ID Status Reason Start Date Expiration Date V isits Requested Visits Authorized [id number] Closed Specialty Service Requested 04/03/2024 10/01/2025 1 1 Reason for Visit * Diagnostic Test (Routine) - Closed Specialty Diagnoses / Procedures Referred By Contac t Referred To Contact Radiology Diagnoses Multiple nodules of lung Procedures NM PET CT Skull Base to Mid-thigh America Caro MD [address] [place] [address] [place] [address] Referral ID Status Reason Start Date Expiration Date V isits Requested Visits Authorized [id number] Closed Specialty Service Requested 04/03/2024 10/01/2025 1 1 Encounter Details Date Type Department Care Team (Latest Contact Info) Description 04/11/2024 9:33 AM EDT - 04/11/2024 11:59 PM EDT Hospital Encounter [place] [address] America Caro MD [address] [place] [address] Multiple nodules of lung Discharge Disposition: Home Social History Tobacco Use Types Packs/Day Years Used Date Smoking Tobacco: Never Assessed Sex and Gender Information Value Date Recorded [...] tablet by mouth Daily at Noon. 04/10/2024 documented as of this encounter Plan of Treatment Upcoming Encounters Date Type Department Care Team (Late st Contact Info) Description 05/23/2024 9:30 AM EST Infusion Hematology Oncology at [address] [address] 05/30/2024 9:00 AM EST Infusion Hematology Oncology at [address] [address] 06/05/2024 9:15 AM EST Laboratory Appointment Lab at [facility] Hematology Oncology [address] [place] [address] 06/05/2024 10:30 AM EST Office Visit Hematology [place] [address] Albania Chahal MD [facility] HEMATOLOGY[place] [address] 06/05/2024 1:00 PM EST Appointment Hematology [place] [address] 06/26/2024 9:15 AM EST Laboratory Appointment Lab at [facility] Hematology Oncology [address] [place] [address] 06/26/2024 10:30 AM EST Office Visit Hematology [place] [address] Albania Chahal MD [facility] [place]OLOGY/[place] [address] 06/26/2024 12:00 PM EST Appointment Hematology [place] [address] 07/17/2024 9:30 AM EST Laboratory Appointment Lab at [facility] Hematology [address] [address] 07/17/2024 10:30 AM EST Office Visit Hematology [place] [address] Albania Chahal MD [facility] HEMATOLOGY[place] [address] 07/17/2024 12:00 PM EST Appointment Hematology [place] [address] documented as of this encounter Procedures Procedure Name Priority Date/Time Associated Diagnosis Comments NM PET CT SKULL BASE TO MID-THIGH ([facility]) Routine 04/11/2024 11:00 AM EDT Multiple nodules of lung documented in this encounter Results * NM PET CT Skull Base to Mid-thigh (04/11/2024 11:00 AM EDT) WORKSTATION ID [id number] [facility] Anatomical Region Laterality Modality Positron Emissio n [...] 7. ??Findings were communicated with Dr. America Caro at 2:40 PM on 04/14/24. I have [...] who have questions please contact the health rn acute care that requested your imaging first. ? Narrative 04/14/2024 3:40 PM EDT EXAMINATION: NM PET CT STANDARD SKULL BASE TO MID-THIGH CLINICAL HISTORY: multiple nodules of lung; other nonspecific abnormal finding of lung field R91.8, Other nonspecific abnormal finding of lung field TECHNIQUE: Following IV injection of 28-feniwq-0-deoxyglucose (FDG) a standard uptake of approximately 60 [...] Note Rishabh Cohen MD - 04/14/2024 EXAMINATION: NM PET CT STANDARD SKULL BASE TO MID-THIGH CLINICAL HISTORY: multiple nodules of lung; other nonspecific abnormalfinding of lung field R91.8, Other nonspecific abnormal finding of lung field TECHNIQUE: Following IV injection of 90-qiqfyj-6-deoxyglucose (FDG) astandard uptake of approximately 60 minutes, [...] 7. Findings were communicated with Dr. America Caro at 2:40 PM on04/14/24. I have personally reviewed the image(s) and the resident's interpretationand agree with the findings, Rishabh Cohen MD at 04/14/2024 3:40 PM Thank you for letting us participate in the care of this patient. If youare a health care provider and have any questions regarding this report,please contact the number below. For patients who have questions please contactthe health rn acute care that requested your imaging first. America Caro MD IMG PET ORDERABLES documented in this encounter Visit Diagnoses Diagnosis Multiple nodules of lung Other nonspecific abnormal finding of lung field documented in this encounter Administered Medications Inactive Administered Medications - up to 3 most recent administrations Medication Order MAR Action Action Date Dose Rate Site fludeoxyglucose (F-18) FDG injection 0-20 mCi 0-20 mCi, Intravenous, ONCE PRN, 1 dose, Starting on Sun04/11/24 at 0952, Until Sun04/11/24 at 0950, Per Protocol, Radiology Contrast, Routine Given 04/11/2024 9:50 AM EDT 10.1 mCi Right Arm documented in this encounter Care Teams Plastic Technician Relationship Specialty Start Date End Date America Caro MD [address] [place] [address] PCP - General Family Medicine 03/31/24 documented as of this encounter
--- OUTSIDE RECORDS SUMMARY | 2024-05-23 01:23 | XMS_ITS | Encounter Summary ---
Author Organization [facility]ly [facility], Later [facility] Address [facility] [place] [address] Care Team Providers Care Squadron Worker Name Role Phone America Caro MD Primary Care Provider [phone] Encounter Details Date Type Department Care Team (Latest Contact Info) Description 05/06/2024 Travel Social History Tobacco Use Types Packs/Day Years Used Date Smoking Tobacco: Former Pipe Passive Smoke Exposure: Past Smokeless Tobacco: Never Comments:Smoke pipe for 10 y ears since 13 years old, Does still smoke pot but is slowing down. Passive Exposure Comments:Second hand smoke since 5635-5544 Alcohol Use Standard Drinks/Week Comments Yes 14 (1 standard drink = 0.6 oz pure alcohol) hardly any for the last month B1300 Health Literacy Answer Date Recor ded How often do you need to hav e someone help you when you read instructions, pamphlets, or other written material from your doctor or pharmacy? Never 05/04/2024 [facility] Utilities Answer Date Recorded In the past 12 months has [employer], gas, oil, or water [employer] threatened to shut off services in your [...] any time in the past 12 m [facility], were you homeless or living in a usp (including now)? No 05/04/2024 Sex and Gender Information Value Date Recorded Sex Assigned at Not on file Gender Identity Not on file Sexual Orientation Not on file documented as of this encounter Plan of Treatment Upcoming Encounters Date Type Department Care Team (Late st Contact Info) Description 05/23/2024 9:30 AM EST Infusion Hematology Oncology at [address] [address] 05/30/2024 9:00 AM EST Infusion Hematology Oncology at [address] [address] 06/05/2024 9:15 AM EST Laboratory Appointment Lab at [facility] Hematology Oncology [address] [place] [address] 06/05/2024 10:30 AM EST Office Visit Hematology [place] [address] Albania Chahal MD [facility] HEMATOLOGY/[place] [address] 06/05/2024 1:00 PM EST Appointment Hematology [place] [address] 06/26/2024 9:15 AM EST Laboratory Appointment Lab at [facility] Hematology Oncology [address] [place] [address] 06/26/2024 10:30 AM EST Office Visit Hematology [place] [address] Albania Chahal MD [facility] HEMATOLOGY[place] [address] 06/26/2024 12:00 PM EST Appointment Hematology [place] [address] 07/17/2024 9:30 AM EST Laboratory Appointment Lab at [facility] Hematology Oncology [address] [place] [address] 07/17/2024 10:30 AM EST Office Visit Hematology [place] [address] Albania Chahal MD [facility] HEMATOLOGY[place] [address] 07/17/2024 12:00 PM EST Appointment Hematology [place] [address] documented as of this encounter Visit Diagnoses Not on filedocumented in this encounter Care Teams Squadron Worker Relationship Specialty Start Date End Date America Caro MD [address] [place] [address] PCP - General Family Medicine 03/31/24 documented as of this encounter
--- OUTSIDE RECORDS SUMMARY | 2024-05-23 01:23 | XMS_ITS | Encounter Summary ---
Author Organization [facility] [place] [address] Care Team Providers Care Hot Sealing Machine Operator Name Role Phone America Caro MD Primary Care Provider [phone] Reason for Visit * Reason Onset Date Comments Other 04/23/2024 Bronchoscopy ins tructions Encounter Details Date Type Department Care Team (Late st Contact Info) Description 04/23/2024 Telephone [place] [phone] Roseanna Rutledge RN Other (Bronchoscopy instructions) Social History Tobacco Use Types Packs/Day Years Used Date Smoking Tobacco: Former Pipe Passive Smoke Exposure: Past Smokeless Tobacco: Never Comments:Smoke pipe for 10 y ears since 13 years old, Does still smoke pot but is slowing down. Passive Exposure Comments:Second hand smoke since 8799-0480 Sex and Gender Information Value Date Recorded Sex Assigned at Not on file Gender Identity Not on file Sexual Orientation Not on file documented as of this encounter Miscellaneous Notes * Telephone Encounter - Roseanna Rutledge RN - 04/23/2024 9:43 AM EDT Made scheduled call to review instructions prior to interventional pulmonary procedure: [x] Informed patient of date, time, and location of procedure or pre-procedure imaging or tests as applicable. Scheduled bronchoscopy with EBUS on 04/24/2024 at 7:30 in Endo under [facility] with Dr. Freeman. Arrive at 4T at 6:30 to check in. Procedure is scheduled for 60 minutes. [x] Informed patient they must have concrete mixer truck driver who accompanies them into and to drive pt home safelyafter the procedure. Cornelius Miguel -Masking is now optional if you do not have COVID/ pulmonary symptoms but masks will continue to still be available at all entrance locations and throughout the building. [x] Reviewed home oxygen or ventilation use: [x] Patient not on home ventilator or oxygen [] Patient is on home oxygen and/or ventilator (document amount and type of oxygen device): [x] Patient confirms they will bring necessary supplies for transport to and from [] Patient identifies this potential supply issue: Will document and contact their DME for assistance. [x] Medication review: Confirm any new medications since last seen in Pulmonary. Only need to review blood thinners, insulin and rescue inhaler. [] Patient has rescue inhaler (e.g., albuterol) and will bring to procedure [x] Anticoagulation and anti-platelet therapy reviewed: [x] No anticoagulation or anti-platelet therapy [] Patient will hold anticoagulation or anti-platelet therapy as directed (See IP job aid for standard instructions or MD note for special instructions) [x] Insulin use reviewed: [x] No insulin therapy [] Patient taking insulin: Instructed to take half of long acting dose, and NOT take short acting dose morning of procedure [x] Patient understands they are to take all other medications the day of procedure unless specifically addressed 5. [x] NPO instructions reviewed with patient: -Do not have anything to eat/ no solid food after midnight tonight. -Pt permitted to have any amount of clear liquids up to two hours before scheduled procedure. -Clear liquid allowed are: water, shahid eulalia, apple juice, black coffee or tea. Sugar or sugar substitutes are fine in coffee or tea, however pt not permitted to have any dairy products (or dairy substitutes) after midnight- No milk, cream, or creamers. -Okay to take small sips of water to take allowed medications within 2 hours of the procedure. -Failure to abide to these dietary instructions may result in cancellation of procedure. 6. [x] COVID screening [x] Patient denies current symptoms or exposures as per most recent COVID Screening Job Aid 7. Other questions addressed during this call: N/A ALEXANDR Payan, RN Pulmonary [facility] Pager: [phone] documented in this encounter Plan of Treatment Upcoming Encounters Date Type Department Care Team (Late st Contact Info) Description 05/23/2024 9:30 AM EST Infusion Hematology Oncology at [address] [address] 05/30/2024 9:00 AM EST Infusion Hematology Oncology at [address] [address] 06/05/2024 9:15 AM EST Laboratory Appointment Lab at [facility] Oncology [address] [place] [address] 06/05/2024 10:30 AM EST Office Visit Hematology [place] [address] Albania Chahal MD [facility] HEMATOLOGY/[place] [address] 06/05/2024 1:00 PM EST Appointment Hematology [place] [address] 06/26/2024 9:15 AM EST Laboratory Appointment Lab at [facility] [place] Oncology [address] [place] [address] 06/26/2024 10:30 AM EST Office Visit Hematology [place] [address] Albania Chahal MD [facility] HEMATOLOGY[place] [address] 06/26/2024 12:00 PM EST Appointment Hematology [place] [address] 07/17/2024 9:30 AM EST Laboratory Appointment Lab at [facility] Hematology Oncology [address] [place] [address] 07/17/2024 10:30 AM EST Office Visit Hematology [place] [address] Albania Chahal MD [facility] DR HEMATOLOGY/[place] [address] 07/17/2024 12:00 PM EST Appointment Hematology [place] [address] documented as of this encounter Visit Diagnoses Not on filedocumented in this encounter Care Teams Hot Sealing Machine Operator Relationship Specialty Start Date End Date America Caro MD [address] [place] [address] PCP - General Family Medicine 03/31/24 documented as of this encounter
--- OUTSIDE RECORDS SUMMARY | 2024-05-23 01:23 | XMS_ITS | Encounter Summary ---
[place] [address] Care Team Providers Care Wood Milling Machine Hand Name Role Phone America Caro MD Primary Care Provider [phone] Reason for Visit * Reason Onset Date Comments Establish Care 05/06/2024 Encounter Details Date Type Department Care Team (Late st Contact Info) Description 05/06/2024 Patient Outreach Hematology [place] [phone] Filemon Millan, RN Establish Care Social History Tobacco Use Types Packs/Day Years Used Date Smoking Tobacco: Former Pipe Passive Smoke Exposure: Past Smokeless Tobacco: Never Comments:Smoke pipe for 10 y ears since 13 years old, Does still smoke pot but is slowing down. Passive Exposure Comments:Second hand smoke since 6566-9209 Alcohol Use Standard Drinks/Week Comments Yes 14 (1 standard drink = 0.6 oz pure alcohol) hardly any for the last month B1300 Health Literacy Answer Date Recor ded How often do you need to hav e someone help you when you read instructions, pamphlets, or other written material from your doctor or pharmacy? Never 05/04/2024 [facility] Utilities Answer Date Recorded In the [...] Progress Notes * Filemon Millan RN - 05/06/2024 1:54 PM EDT [facility] Oncology Nurse Navigation Patient Intake & Care Plan Met with Henry Gary Concepicon 'Adams' a 68 y.o. diagnosed with non-small cell lung cancer to assess for nurse navigation services. Introduced the role of Thoracic Navigator as a point of contact for communication between different disciplines and a traffic coordinator of timely access to care and resources. Reviewed symptoms, PMH, lifestyle choices, and patient understanding of plan of care. Assessed for transportation, financial, social, and practical barriers to care. Physical/Nutritional/Emotional: Twan complains of chest pain, currently moderately controlled withtylenol and ibuprofen. The pain does interfere with his sleep, causing some fatigue and lethargy for the past few weeks. Otherwise he is doing well. He smoked a pipe may years ago, but since moving to [place] has been a heavy marijuana smoker. He recently switched to edibles. Lifestyle/Living arrangements/Social: Adams lives in [place], [place]. He has a bird dog who has a lot of energy and keeps Bill active. He moved to [place] from [place] 5 years ago. He is very close with his nephew and family who live nearby, and has some good friends and neighbors. In his free time Adams does some bird hunting and plays iris music on the flute and accordion. Transportation: Adams is closer to [facility] but is also fine driving to [place] for some treatment. He will see how things go and decide. 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 Medicare and [employer] insurance. Gave patient navigator contact information, advised to call for assistance coordinating care or with any questions or concerns. Outlined main ancillary services available to help support patient, including Social Work, Palliative Care, Psycho Onc, Nutrition and PT. Patient prefers treatment in [facility] or [place]. PLAN: Guardant [address] chest in [facility] for treatment PDL1 pending ONN to follow Thoracic Oncology Nurse Navigator is ALEXANDR Weldon, RN. documented in this encounter Plan of Treatment Upcoming Encounters Date Type Department Care Team (Late st Contact Info) Description 05/23/2024 9:30 AM EST Infusion Hematology Oncology at [address] [address] 05/30/2024 9:00 AM EST Infusion Hematology Oncology at [address] [address] 06/05/2024 9:15 AM EST Laboratory Appointment Lab at [facility] [place] On[place] [address] [place] [address] 06/05/2024 10:30 AM EST Office Visit Hematology [place] [address] Albania Chahal MD [facility] HEMATOLOGY[place] [address] 06/05/2024 1:00 PM EST Appointment Hematology [place] [address] 06/26/2024 9:15 AM EST Laboratory Appointment Lab at [address] [address] 06/26/2024 10:30 AM EST Office Visit Hematology [place] [address] Albania Chahal MD [facility] HEMATOLOGY[place] [address] 06/26/2024 12:00 PM EST Appointment Hematology [place] [address] 07/17/2024 9:30 AM EST Laboratory Appointment Lab at [address] [address] 07/17/2024 10:30 AM EST Office Visit Hematology [place] [address] Albania Chahal MD [facility] HEMATOLOGY[place] [address] 07/17/2024 12:00 PM EST Appointment Hematology [place] [address] documented as of this encounter Visit Diagnoses Not on filedocumented in this encounter Care Teams Wood Milling Machine Hand Relationship Specialty Start Date End Date America Caro MD [address] [place] [address] PCP - General Family Medicine 03/31/24 documented as of this encounter
--- OUTSIDE RECORDS SUMMARY | 2024-05-23 01:23 | XMS_ITS | Encounter Summary ---
Author Organization [facility] [place] [address] Care Team Providers Care Foundry Molder Name Role Phone America Caro MD Primary Care Provider [phone] Encounter Details Date Type Department Care Team (Late st Contact Info) Description 04/15/2024 [place] [phone] Kaela Zayas Social History Tobacco Use Types Packs/Day Years [...] 9:30 AM EST Infusion Hematology Oncology at [address] [address] 05/30/2024 9:00 AM EST Infusion Hematology Oncology at [address] [address] 06/05/2024 9:15 AM EST Laboratory Appointment Lab at [facility] [place] On[place] [address] [place] [address] 06/05/2024 10:30 AM EST Office Visit Hematology [place] [address] Albania Chahal MD [facility] HEMATOLOGY[place] [address] 06/05/2024 1:00 PM EST Appointment Hematology [place] [address] 06/26/2024 9:15 AM EST Laboratory Appointment Lab at [facility] [place] [address] [address] 06/26/2024 10:30 AM EST Office Visit Hematology and Oncology at [place] [phone] Albania Chahal MD [facility] HEMATOLOGY/[place] [address] 06/26/2024 12:00 PM EST Appointment Hematology [place] [address] 07/17/2024 9:30 AM EST Laboratory Appointment Lab at [facility] [place] [address] [address] 07/17/2024 10:30 AM EST Office Visit Hematology [place] [address] Albania Chahal MD [facility] HEMATOLOGY[place] [address] 07/17/2024 12:00 PM EST Appointment Hematology [place] [address] documented as of this encounter Visit Diagnoses Not on filedocumented in this encounter Care Teams Foundry Molder Relationship Specialty Start Date End Date America Caro MD [address] [place] [address] PCP - General Family Medicine 03/31/24 documented as of this encounter
--- OUTSIDE RECORDS SUMMARY | 2024-05-23 01:23 | XMS_ITS | Encounter Summary ---
Author Organization [facility] [place] [address] Care Team Providers Care Forensic Investigator Name Role Phone America Caro MD Primary Care Provider [phone] Encounter Details Date Type Department Care Team (Latest Contact Info) Description 04/11/2024 Travel Social History Tobacco Use Types Packs/Day [...] 9:30 AM EST Infusion Hematology Oncology at [address] [address] 05/30/2024 9:00 AM EST Infusion Hematology Oncology at [address] [address] 06/05/2024 9:15 AM EST Laboratory Appointment Lab at [facility] Hematology Oncology [address] [place] [address] 06/05/2024 10:30 AM EST Office Visit [place]ematology [place] [address] Albania Chahal MD [facility] HEMATOLOGY[place] [address] 06/05/2024 1:00 PM EST Appointment Hematology [place] [address] 06/26/2024 9:15 AM EST Laboratory Appointment Lab at [facility] Hematology Oncology [address] [place] [address] 06/26/2024 10:30 AM EST Office Visit [place]ematology [place] [address] Albania Chahal MD [facility] [place]EMATOLOGY[place] [address] 06/26/2024 12:00 PM EST Appointment Hematology [place] [address] 07/17/2024 9:30 AM EST Laboratory Appointment Lab at [facility] Hematology Oncology [address] [place] [address] 07/17/2024 10:30 AM EST Office Visit Hematology [place] [address] Albania Chahal MD [facility] [place]ATOLOGY[place] [address] 07/17/2024 12:00 PM EST Appointment [place]ematology [place] [address] documented as of this encounter Visit Diagnoses Not on filedocumented in this encounter Care Teams Forensic Investigator Relationship Specialty Start Date End Date America Caro MD [address] [place] [address] PCP - General Family Medicine 03/31/24 documented as of this encounter
--- OUTSIDE RECORDS SUMMARY | 2024-05-23 01:23 | XMS_ITS | Encounter Summary ---
Author Organization [facility] [place] [address] Care Team Providers Care Associate Financial Advisor Name Role Phone America Caro MD Primary Care Provider [phone] Reason for Referral * Diagnostic Test (Routine) - Closed Specialty Diagnoses / Procedures Referred By Contac t Referred To Contact Radiology Diagnoses NSCLC of left lung Procedures MRI Brain wwo Contrast (Generic) Andrea Freeman MD [facility] [address] [place] [address] Referral ID Status Reason Start Date Expiration Date V isits Requested Visits Authorized [id number] Closed Specialty Service Requested 05/01/2024 10/30/2025 1 1 Encounter Details Date Type Department Care Team (Late st Contact Info) Description 05/01/2024 Telephone [place] [address] Andrea Freeman MD [facility] [place] [address] Social History Tobacco Use Types Packs/Day Years Used Date Smoking Tobacco: Former Pipe Passive Smoke Exposure: Past Smokeless Tobacco: Never Comments:Smoke pipe for 10 y ears since 13 years old, Does still smoke pot but is slowing down. Passive Exposure Comments:Second hand smoke since 2148-0331 Alcohol Use Standard Drinks/Week Comments Yes 14 (1 standard drink = 0.6 oz pure alcohol) hardly any for the last month Sex and Gender Information Value Date Recorded Sex Assigned at Not on file Gender Identity Not on file Sexual Orientation Not on file documented as of this encounter Miscellaneous Notes * Telephone Encounter - Andrea Freeman MD - 05/01/2024 1:21 PM EDT Images from the original note were not included. Interventional Pulmonology Telephone Encounter: I called Mr. Henry Javier on 05/01/2024 at 1:23 PM. 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 The plan is for referral to medical oncology. In regards to his pleural effusion, the improvement in dyspnea garnered following his initial thoracentesis with us has not yet waned and he will call us should his dyspnea recur in the future. MR morgan ordered to finalize his staging. He was provided ample time to ask questions which were answered to his liking. Home Phone [phone] Andrea Freeman MD, 05/01/2024, 1:23 PM Interventional Pulmonology Section of Pulmonary & Critical Care Pager: [phone] documented in this encounter Plan of Treatment Upcoming Encounters Date Type Department Care Team (Late st Contact Info) Description 05/23/2024 9:30 AM EST Infusion Hematology Oncology at [address] [address] 05/30/2024 9:00 AM EST Infusion Hematology Oncology at [address] [address] 06/05/2024 9:15 AM EST Laboratory Appointment Lab at [facility] Hematology Oncology [address] [place] [address] 06/05/2024 10:30 AM EST Office Visit Hematology [place] [address] Albania Chahal MD [facility] HEMATOLOGY/[place] [address] 06/05/2024 1:00 PM EST Appointment Hematology [place] [address] 06/26/2024 9:15 AM EST Laboratory Appointment Lab at [facility] Hematology Oncology [address] [place] [address] 06/26/2024 10:30 AM EST Office Visit Hematology [place] [address] Albania Chahal MD [facility] HEMATOLOGY/[place] [address] 06/26/2024 12:00 PM EST Appointment Hematology [place] [address] 07/17/2024 9:30 AM EST Laboratory Appointment Lab at [address] [address] 07/17/2024 10:30 AM EST Office Visit Hematology [place] [address] Albania Chahal MD [facility] HEMATOLOGY[place] [address] 07/17/2024 12:00 PM EST Appointment Hematology [place] [address] documented as of this encounter Results * MRI Brain wwo Contrast (Generic) (05/07/2024 9:14 AM EDT) WORKSTATION ID [id number] [facility] Anatomical Region Laterality Modality Head Magnetic Resonan [...] who have questions please contact the health care worker that requested your imaging first. ? Electronically signed by: Cosme Min MD, [facility] ([phone]), at 05/08/2024 12:31 AM Narrative 05/08/2024 12:31 AM EDT EXAMINATION: MRI [...] patients who have questions please contactthe health care worker that requested your imaging first. Electronically signed by: Cosme Min MD, [facility]([phone]), at 05/08/2024 12:31 AM Andrea Freeman MD IMG MRI ORDERABLES documented in this encounter Visit Diagnoses Diagnosis NSCLC of left lung NSCLC of left lung documented in this encounter Care Teams Associate Financial Advisor Relationship Specialty Start Date End Date America Caro MD [address] [place] [address] PCP - General Family Medicine 03/31/24 documented as of this encounter
--- OUTSIDE RECORDS SUMMARY | 2024-05-23 01:23 | XMS_ITS | Encounter Summary ---
[place] [address] Care Team Providers Care Manager Core Name Role Phone America Caro MD Primary Care Provider [phone] Reason for Referral * Consultation (Urgent) - Authorized Specialty Diagnoses / Procedures Referred By Contac t Referred To Contact Pulmonology Diagnoses Other nonspecific abnormal finding of lung field Multiple lung nodules America Caro MD [address] [place] [address] [facility] Pulmonology [address] [place] [phone] Referral ID Status Reason Start Date Expiration Date Visits Requested Visits Authorized [id number] Authorized Consult, Test & Treat PCP Updated and/or Approved 03/31/2024 03/30/2025 6 6 Encounter Details Date Type Department Care Team (Latest Contact Info) Description 04/14/2024 Transcribe Orders eDH Incoming Referrals [phone] America Caro MD [address] [place] [address] Other nonspecific abnormal finding of lung field Social History Tobacco Use Types Packs/Day Years [...] 9:30 AM EST Infusion Hematology Oncology at [address] [address] 05/30/2024 9:00 AM EST Infusion Hematology Oncology at [address] [address] 06/05/2024 9:15 AM EST Laboratory Appointment Lab at [facility] Hematology Oncology [address] [place] [address] 06/05/2024 10:30 AM EST Office Visit Hematology [place] [address] Albania Chahal MD [facility] HEMATOLOGY/[place] [address] 06/05/2024 1:00 PM EST Appointment Hematology [place] [address] 06/26/2024 9:15 AM EST Laboratory Appointment Lab at [facility] Hematology Oncology [address] [place] [address] 06/26/2024 10:30 AM EST Office Visit Hematology [place] [address] Albania Chahal MD [facility] [address] [place] [address] 06/26/2024 12:00 PM EST Appointment Hematology [place] [address] 07/17/2024 9:30 AM EST Laboratory Appointment Lab at [facility] Hematology Oncology [address] [place] [address] 07/17/2024 10:30 AM EST Office Visit Hematology [place] [address] Albania Chahal MD [facility] HEMATOLOGY/[place] [address] 07/17/2024 12:00 PM EST Appointment Hematology [place] [address] Scheduled Referrals Name Type Priority Associated Diagnoses Orde r Schedule Referral to Pulmonology Outpatient Referral Routine Other nonspecific abnormal finding of lung field Ordered: 04/14/2024 documented as of this encounter Visit Diagnoses Diagnosis Other nonspecific abnormal finding of lung field documented in this encounter Care Teams Manager Core Relationship Specialty Start Date End Date America Caro MD [address] [place] [address] PCP - General Family Medicine 03/31/24 documented as of this encounter
--- OUTSIDE RECORDS SUMMARY | 2024-05-23 01:23 | XMS_ITS | Encounter Summary ---
[place] [address] Care Team Providers Care Electrical Electronics Engineer Name Role Phone America Caro MD Primary Care Provider [phone] Reason for Referral * Consultation (Urgent) - Authorized Specialty Diagnoses / Procedures Referred By Contac t Referred To Contact Hematology and Oncology Diagnoses Malignant neoplasm of bronchus and lung HAS LARGE PERICARDIAL EFFUSION America Caro MD [address] [place] [address] [facility] Hem Onc [address] [place] [address] Referral ID Status Reason Start Date Expiration Date Visits Requested Visits Authorized [id number] Authorized Consult, Test & Treat PCP Updated and/or Approved 04/14/2024 10/12/2024 6 6 Encounter Details Date Type Department Care Team (Latest Contact Info) Description 04/15/2024 Transcribe Orders eDH Incoming Referrals [phone] America Caro MD [address] [place] [address] Malignant neoplasm of bronchus and lung Social History Tobacco Use Types Packs/Day [...] 9:30 AM EST Infusion Hematology Oncology at [address] [address] 05/30/2024 9:00 AM EST Infusion Hematology Oncology at [address] [address] 06/05/2024 9:15 AM EST Laboratory Appointment Lab at [facility] Hematology Oncology [address] [place] [address] 06/05/2024 10:30 AM EST Office Visit Hematology [place] [address] Albania Chahal MD [facility] HEMATOLOGY[place] [address] 06/05/2024 1:00 PM EST Appointment Hematology [place] [address] 06/26/2024 9:15 AM EST Laboratory Appointment Lab at [facility] Hematology Oncology [address] [place] [address] 06/26/2024 10:30 AM EST Office Visit Hematology [place] [address] Albania Chahal MD [facility] HEMATOLOGY[place] [address] 06/26/2024 12:00 PM EST Appointment Hematology [place] [address] 07/17/2024 9:30 AM EST Laboratory Appointment Lab at [facility] Hematology Oncology [address] [place] [address] 07/17/2024 10:30 AM EST Office Visit Hematology [place] [address] Albania Chahal MD [facility] HEMATOLOGY/[place] [address] 07/17/2024 12:00 PM EST Appointment H[place]ology [place] [address] Scheduled Referrals Name Type Priority Associated Diagnoses Order Schedule Referral to Hematology and Oncology Outpatient Referral Routine Malignant neoplasm of bronchus and lung Ordered: 04/15/2024 documented as of this encounter Visit Diagnoses Diagnosis Malignant neoplasm of bronchus and lung Malignant neoplasm of bronchus and lung, unspecified site documented in this encounter Care Teams Electrical Electronics Engineer Relationship Specialty Start Date End Date America Caro MD [address] [place] [address] PCP - General Family Medicine 03/31/24 documented as of this encounter
--- OUTSIDE RECORDS SUMMARY | 2024-05-23 01:23 | XMS_ITS | Encounter Summary ---
Author Organization [facility] [place] [address] Care Team Providers Care Grinder Carbon Plant Name Role Phone America Caro MD Primary Care Provider [phone] Encounter Details Date Type Department Care Team (Latest Contact Info) Description 04/09/2024 Travel Social History Tobacco Use Types Packs/Day [...] 9:30 AM EST Infusion Hematology Oncology at [address] [address] 05/30/2024 9:00 AM EST Infusion Hematology Oncology at [address] [address] 06/05/2024 9:15 AM EST Laboratory Appointment Lab at [facility] [place] [address] [place] [address] 06/05/2024 10:30 AM EST Office Visit Hematology [place] [address] Albania Chahal MD [facility] HEMATOLOGY[place] [address] 06/05/2024 1:00 PM EST Appointment Hematology [place] [address] 06/26/2024 9:15 AM EST Laboratory Appointment Lab at [facility] [place]ology Oncology [address] [place] [address] 06/26/2024 10:30 AM EST Office Visit Hematology [place] [address] Albania Chahal MD [facility] HEMATOLOGY/[place] [address] 06/26/2024 12:00 PM EST Appointment Hematology [place] [address] 07/17/2024 9:30 AM EST Laboratory Appointment Lab at [facility] [place]ematology Oncology [address] [place] [address] 07/17/2024 10:30 AM EST Office Visit Hematology [place] [address] Albania Chahal MD [facility] [place]EMATOLOGY/[place] [address] 07/17/2024 12:00 PM EST Appointment Hematology [place] [address] documented as of this encounter Visit Diagnoses Not on filedocumented in this encounter Care Teams Grinder Carbon Plant Relationship Specialty Start Date End Date America Caro MD [address] [place] [address] PCP - General Family Medicine 03/31/24 documented as of this encounter
--- OUTSIDE RECORDS SUMMARY | 2024-05-23 01:23 | XMS_ITS | Encounter Summary ---
Author Organization [facility] Address [facility] [place] [address] Care Team Providers Care Churn Driller Name Role Phone America Caro MD Primary Care Provider [phone] Encounter Details Date Type Department Care Team (Late st Contact Info) Description 04/24/2024 7:37 AM EDT Anesthesia Event [place] [address] Radha Arshad MD [facility] [place] [address] Anesthesia Record Procedure Summary Procedure Name Responsible Anesthesiologist Anesthesia Start Time Anesthesia Stop Time BRONCH, W ENDOBRONCHIAL ULTRASOUND (EBUS) GUIDED SAMPLING, 3+ NODES (WRVU 4.96) Radha Arshad MD 04/24/24 0737 04/24/24 0839 Events Date Time Event Comment 04/24/2024 0715 0734 AN Verify 0737 Start 0737 An Start Data 0745 An Induction 0747 An Intubation 0748 Anesthesia Ready 0823 Extubation/LMA Out 0831 an stop data 0839 Recovery or ICU Handoff Delisa ent care was transferred to the destination unit staff after review of the patient's medical history, current anesthetic/surgical status and plan, according to the Provider Handoff Checklist. 0839 Stop Meds Name Total lidocaine IV 50 mg propofoL 290 mg propofol INF 273.88 mg succinylcholine 100 mg PHENYLephrine 800 mcg ondansetron 4 mg ePHEDrine 15 mg lactated ringers infusion 600 mL * Agents Name O2 Air N2O Sevoflurane (et) O2 Auxiliary Flowmeter 1 * Blood No blood administrations on file. Lines, Drains, and Airways Type Details Placement Removal PIV 04/24/24; 721; ycys-lgg-cttznx catheter system; 20 gauge; median cubital vein (antecubital fossa), right; ANALI DIAL; distraction; 0; no longer indicated, catheter/device intact; 04/24/24; 92204/24/24721 by Rosamaria Garcia RN 04/24/24922 by Sarah Feldman RN ETT Mask Ventilation: Ea sy (1); ETT Type: Cuffed, Oral; ETT Size: 8.5 mm; Nguyễn Blade: 2; Notes: Asleep, Pre-O2, Stylette; Attempts: 1; Laryngoscopy Grade: 1; ETT Placement Verified By: Auscultation, Capnometry, Visual; Secured at Teeth: 23 cm; Inserted by: Sha; Removal Date: 04/24/24; Removal Time: 82204/24/24 07 by Joann Dalton CRNA 04/24/24 08 by Joann Dalton TEXTILE MACHINE MAINTENANCE MECHANIC documented in this encounter Social History Tobacco Use Types Packs/Day Years Used Date Smoking Tobacco: Former Pipe Passive Smoke Exposure: Past Smokeless Tobacco: Never Comments:Smoke pipe for 10 y ears since 13 years old, Does still smoke pot but is slowing down. Passive Exposure Comments:Second hand smoke since 9650-6723 Alcohol Use Standard Drinks/Week Comments Yes 14 (1 standard drink = 0.6 oz pure alcohol) hardly any for the last month Sex and Gender Information Value Date Recorded Sex Assigned at Not on file Gender Identity Not on file Sexual Orientation Not on file documented as of this encounter OR Notes * Anesthesia Postprocedure Evaluation - Radha Arshad MD - 04/24/2024 9:07 AM EDT Department of Anesthesiology Post-procedure Note Patient: Henry Javier Procedure Summary Date: 04/24/24 Room / Location: [facility] END[facility] 1 / [facility] Anesthesia Start: 736 Anesthesia Stop: 838 Procedure: BRONCH, W ENDOBRONCHIAL ULTRASOUND (EBUS) GUIDED SAMPLING, 3+ NODES (WRVU 4.96) Diagnosis: Lymphadenopathy (Lymphadenopathy/ Bronch with EBUS/ GA/ Bakcer) Surgeons: Andrea Freeman MD Responsible Provider: Radha Arshad MD Anesthesia Type: general ASA Status: 3 All Anesthesia Providers: Anesthesiologist: Radha Arshad MD TEXTILE MACHINE MAINTENANCE MECHANIC: Joann Dalton CRNA Vitals Value Taken Time BP 89/61 04/24/24 0900 Temp 36.4 ??C (97.5 ??F) 04/24/24 0835 Pulse Resp 20 04/24/24 0850 SpO2 92 % 04/24/24 0906 Pain Level 0 04/24/24 0850 Vitals shown include unfiled device data. Patient Location: PACU/[facility] Level of Consciousness: Awake and Alert Pain Management: Satisfactory Analgesia PONV: None Cardiovascular Status: At Baseline and Hemodynamically Stable Respiratory Status: At Baseline and Room Air Postoperative Fluid Status: Intravascular EUvolemia Possible Anesthetic Complications: NONE apparent at time of evaluation Final Primary Anesthesia Type: General (The anesthetic type performed was the same as planned.) Comments: Radha Arshad MD * Anesthesia Preprocedure Evaluation - Radha Arshad MD - 04/24/2024 7:49 AM EDT Pre-Anesthesia Evaluation for: Henry Javier a 68 y.o. male. Procedure(s): BRONCH, W ENDOBRONCHIAL ULTRASOUND (EBUS) GUIDED SAMPLING, 3+ NODES (WRVU 4.96) There are no problems to display for this patient. History reviewed. No pertinent past medical history. History reviewed. No pertinent surgical history. Social History Tobacco Use Smoking status: Former Types: Pipe Passive exposure: Past (Second hand smoke since 2771-9282) Smokeless tobacco: Never Tobacco comments: Smoke pipe for 10 years since 13 years old, Does still smoke pot but is slowing down. Substance Use Topics Alcohol use: Yes Alcohol/week: 14.0 standard drinks of alcohol Types: 14 Glasses of wine per week Comment: hardly any for the last month Social History Substance and Sexual Activity Drug Use Yes Frequency: 2.0 times per week Types: Marijuana No Known Allergies Medications: MAR and/or home medications have been reviewed. Physical Exam: Preprocedure Vitals Current as of 04/24/24 0737 BP: 121/84 Pulse: 72 Resp: 18 SpO2: 98 Temp: 36.7 ??C (98 ??F) Height: 160 cm (5' 3) (04/24/24) Weight: 62.6 kg (138 lb) (04/24/24) BMI: 24.44 IBW: 56.9 kg (125 lb 6.4 oz) Last edited 04/24/24 0708 by JAYRO Airway Assessment: Mallampati: II TM distance: >3 FB Neck ROM: full Cardiovascular Assessment: Rhythm: regular Rate: normal Pulmonary Assessment: unlabored breathing Dental Assessment: - normal exam Misc Assessment: IV access: Peripheral line Last Filed Perioperative Cognitive Screening None Anesthesia Plan: ASA 3 general, with a(n) intravenous induction Patient interviewed and examined. Henry Javier is a 68 y.o. patient who presents for bronchoscopy and EBUS guided biopsy of mediastinal mass. Has had a large associated pericardial effusion and pleural effusion. PMH otherwise significant for: Cannabis use - edibles a few times per week Regular EtOH - 2 glasses of wine daily Current BMI 24 No history of anesthetic complications or family history of major anesthetic complications. Appropriately NPO. Exercise tolerance > 4 METS (2 flights of stairs easily). Denies chest pain. No recent respiratory infections, fevers. Medications, allergies, labs reviewed Interpretation Summary -There is a moderate pericardial [...] valve disease. -No comparison study is available. Plan for general anesthesia with endotracheal intubation, standard ASA monitors, to endo SD following procedure. All patient questions related to anesthetic care answered at this time. Anesthesia consent obtainedwith discussion of indications, benefits, risks, and alternatives. The patient demonstrated adequate understanding and acknowledged these risks and wishes to proceed. Radha Arshad MD Attending Anesthesiologist Pager [phone] 04/24/24 Informed Consent: Anesthetic plan and risks discussed with patient. Plan discussed with TEXTILE MACHINE MAINTENANCE MECHANIC and attending. Anesthesia Screening documented in this encounter Plan of Treatment Upcoming Encounters Date Type Department Care Team (Late st Contact Info) Description 05/23/2024 9:30 AM EST Infusion Hematology Oncology at [address] [address] 05/30/2024 9:00 AM EST Infusion Hematology Oncology at [address] [address] 06/05/2024 9:15 AM EST Laboratory Appointment Lab at [facility] [place]ology Oncology [address] [place] [address] 06/05/2024 10:30 AM EST Office Visit Hematology [place] [address] Albania Chahal MD [facility] HEMATOLOGY/[place] [address] 06/05/2024 1:00 PM EST Appointment Hematology [place] [address] 06/26/2024 9:15 AM EST Laboratory Appointment Lab at [facility] Hematology Oncology [address] [place] [address] 06/26/2024 10:30 AM EST Office Visit Hematology [place] [address] Albania Chahal MD [facility] HEMATOLOGY[place] [address] 06/26/2024 12:00 PM EST Appointment Hematology [place] [address] 07/17/2024 9:30 AM EST Laboratory Appointment Lab at [facility] Hematology Oncology [address] [place] [address] 07/17/2024 10:30 AM EST Office Visit Hematology [place] [address] Albania Chahal MD [facility] HEMATOLOGY/[place] [address] 07/17/2024 12:00 PM EST Appointment Hematology [place] [address] documented as of this encounter Visit Diagnoses Not on filedocumented in this encounter Administered Medications Inactive Administered Medications - up to 3 most recent administrations Medication Order MAR Action Action Date Dose Rate Site ePHEDrine sulfate (5 mg/mL) multi-dose injection Intravenous, PRN, Starting on Cherelle 04/24/24 at 0817, Until Cherelle 04/24/24 at 0839, Anesthesia Intra-op, Routine Given 04/24/2024 8:19 AM EDT 10 mg Given 04/24/2024 8:16 AM EDT 5 mg lactated ringers infusion 100 mL/hr, Intravenous, CONTINUOUS, Starting on Cherelle 04/24/24 at 0730, Until Cherelle 04/24/24 at 0900, Endoscopy (Day of Procedure) Restarted 04/24/2024 7:34 AM EDT New Bag 04/24/2024 7:22 AM EDT 100 mL/hr 100 mL/hr lidocaine (pf) (Xylocaine) (20 mg/mL) 2% injection syringe Intravenous, PRN, Starting on Cherelle 04/24/24 at 0745, Until Cherelle 04/24/24 at 0839, Anesthesia Intra-op, Routine Given 04/24/2024 7:45 AM EDT 50 mg ondansetron (pf) (Zofran) (2 mg/mL) injection Intravenous, PRN, Starting on Cherelle 04/24/24 at 0808, Until Cherelle 04/24/24 at 0839, Anesthesia Intra-op, Routine Given 04/24/2024 8:08 AM EDT 4 mg PHENYLephrine (Troy-Synephrine) (10 mg/mL) injection Intravenous, PRN, Starting on Cherelle 04/24/24 at 0758, Until Cherelle 04/24/24 at 0839, Anesthesia Intra-op, Routine Given 04/24/2024 8:13 AM EDT 80 mcg Given 04/24/2024 8:10 AM EDT 80 mcg Given 04/24/2024 8:06 AM EDT 160 mcg propofoL (Diprivan) (10 mg/mL) infusion Intravenous, CONTINUOUS PRN, Starting on Cherelle 04/24/24 at 0748, Until Cherelle 04/24/24 at 0839, Anesthesia Intra-op, Routine Rate/Dose Change 04/24/2024 8:17 AM EDT 75 mcg/kg/min 28.17 mL/hr Rate/Dose Change 04/24/2024 8:10 AM EDT 100 mcg/kg/min 37. 56 mL/hr Rate/Dose Change 04/24/2024 8:06 AM EDT 125 mcg/kg/min 46. 95 mL/hr propofoL (Diprivan) 10 mg/mL bolus injection (Anesthesia) Intravenous, PRN, Starting on Cherelle 04/24/24 at 0745, Until Cherelle 04/24/24 at 0839, Anesthesia Intra-op Given 04/24/2024 8:02 AM EDT 30 mg Given 04/24/2024 7:55 AM EDT 30 mg Given 04/24/2024 7:54 AM EDT 30 mg succinylcholine (Anectine;Quelicin) (20 mg/mL) injection Intravenous, PRN, Starting on Cherelle 04/24/24 at 0745, Until Cherelle 04/24/24 at 0839, Anesthesia Intra-op, Routine Given 04/24/2024 7:45 AM EDT 100 mg documented in this encounter Care Teams Churn Driller Relationship Specialty Start Date End Date America Caro MD [address] [place] [address] PCP - General Family Medicine 03/31/24 documented as of this encounter
--- OUTSIDE RECORDS SUMMARY | 2024-05-23 01:23 | XMS_ITS | Encounter Summary ---
[place] [address] Care Team Providers Care Dianetic Counselor Name Role Phone America Caro MD Primary Care Provider Reason for Visit * Diagnostic Test (Routine) - Closed Specialty Diagnoses / Procedures Referred By Contac t Referred To Contact Radiology Diagnoses Multiple nodules of lung Procedures NM PET CT Skull Base to Mid-thigh America Caro MD [address] [place] [address] [place] [address] Referral ID Status Reason Start Date Expiration Date V isits Requested Visits Authorized [id number] Closed Specialty Service Requested 04/03/2024 10/01/2025 1 1 Encounter Details Date Type Department Care Team (Latest Contact Info) Description 04/11/2024 9:33 AM EDT - 04/11/2024 11:59 PM EDT Hospital Encounter [place] [address] America Caro MD [address] [place] [address] Discharge Disposition: Home Social History Tobacco Use [...] 9:30 AM EST Infusion Hematology Oncology at [address] [address] 05/30/2024 9:00 AM EST Infusion Hematology Oncology at [address] [address] 06/05/2024 9:15 AM EST Laboratory Appointment [place] [facility] [place] [address] [place] [address] 06/05/2024 10:30 AM EST Office Visit [place] [address] Albania Chahal MD [facility] HEMATOLOGY[place] [address] 06/05/2024 1:00 PM EST Appointment Hematology [place] [address] 06/26/2024 9:15 AM EST Laboratory Appointment Lab [place] [facility] [place] [address] [place] [address] 06/26/2024 10:30 AM EST Office Visit [place]ematology [place] [address] Albania Chahal MD [facility] HEMATOLOGY[place] [address] 06/26/2024 12:00 PM EST Appointment Hematology [place] [address] 07/17/2024 9:30 AM EST Laboratory Appointment Lab at [facility] [place]ology Oncology [address] [place] [address] 07/17/2024 10:30 AM EST Office Visit [place]ematology [place] [address] Albania Chahal MD [facility] HEMATOLOGY/[place] [address] 07/17/2024 12:00 PM EST Appointment [place]ematology [place] [address] documented as of this encounter Procedures Procedure Name Priority Date/Time Associated Diagnosis Comments NM PET CT SKULL BASE TO MID-THIGH ([facility]) Routine 04/11/2024 11:00 AM EDT Multiple nodules of lung POC, GLUCOSE Routine 04/11/2024 9:43 AM EDT documented in this encounter Results * POC, GLUCOSE (04/11/2024 9:43 AM EDT) Glucometer, POC 76 65 - 199 mg/dL 04/11/2024 9:43 AM EDT [facility] Comment:Supplemental ranges: <140 mg/dL before meals <180 mg/dL all other times of the day. Blood CAPILLARY BLOOD / Unknown 04/11/2024 9:43 AM EDT 04/11/2024 9:43 AM EDT America Caro MD POINT OF CARE TEST O RDERABLES [facility] [place] [address] documented in this encounter Visit Diagnoses Not on filedocumented in this encounter Care Teams Dianetic Counselor Relationship Specialty Start Date End Date America Caro MD [address] [place] [address] PCP - General Family Medicine 9/16/24 documented as of this encounter
--- OUTSIDE RECORDS SUMMARY | 2024-05-23 01:23 | XMS_ITS | Encounter Summary ---
[place] [address] Care Team Providers Care Heel Finisher Name Role Phone America Caro MD Primary Care Provider [phone] Reason for Referral * Consultation (Routine) - Authorized Specialty Diagnoses / Procedures Referred By Contac t Referred To Contact Cardiology Diagnoses Pericardial effusion R sided CP. Echo w/ moderate pericardial effusion, CT shows thickening of mediastinum & lung nodules (referred to Pulm). PMH recent cholecystectomy America Caro MD [address] [place] [address] [facility] Cardiology [address] [place] [phone] Referral ID Status Reason Start Date Expiration Date Visits Requested Visits Authorized [id number] Authorized Consult, Test & Treat 04/07/2024 04/07/2025 1 1 Encounter Details Date Type Department Care Team (Latest Contact Info) Description 04/07/2024 Transcribe Orders eDH Incoming Referrals [phone] America Caro MD [address] [place] [address] Pericardial effusion Social History Tobacco Use Types Packs/Day Years [...] 9:30 AM EST Infusion Hematology Oncology at [address] [address] 05/30/2024 9:00 AM EST Infusion Hematology Oncology at [address] [address] 06/05/2024 9:15 AM EST Laboratory Appointment Lab at [facility] Hematology Oncology [address] [place] [address] 06/05/2024 10:30 AM EST Office Visit Hematology [place] [address] Albania Chahal MD [facility] [place]ATOLOG[place] [address] 06/05/2024 1:00 PM EST Appointment Hematology [place] [address] 06/26/2024 9:15 AM EST Laboratory Appointment Lab at [facility] Hematology Oncology [address] [place] [address] 06/26/2024 10:30 AM EST Office Visit Hematology [place] [address] Albania Chahal MD [facility] [place]ATOLOG[place] [address] 06/26/2024 12:00 PM EST Appointment Hematology [place] [address] 07/17/2024 9:30 AM EST Laboratory Appointment Lab at [facility] Hematology Oncology [address] [place] [address] 07/17/2024 10:30 AM EST Office Visit Hematology [place] [address] Albania Chahal MD [facility] [place]EMATOLOG[place] [address] 07/17/2024 12:00 PM EST Appointment Hematology [place] [address] Scheduled Referrals Name Type Priority Associated Diagnoses Order Schedule Referral to Cardiology Outpatient Referral Routine Pericardial effusion Ordered: 04/07/2024 documented as of this encounter Visit Diagnoses Diagnosis Pericardial effusion Unspecified disease of pericardium documented in this encounter Care Teams Heel Finisher Relationship Specialty Start Date End Date America Caro MD [address] [place] [id number] PCP - General Family Medicine 03/31/24 documented as of this encounter
--- OUTSIDE RECORDS SUMMARY | 2024-05-23 01:23 | XMS_ITS | Encounter Summary ---
Author Organization formerly [place] [address] Care Team Providers Care Linux Admin Engineer Name Role Phone America Caro MD Primary Care Provider [phone] Encounter Details Date Type Department Care Team (Late Contact Info) Description 04/22/2024 Telephone [place] [phone] Kaela Zayas Social History Tobacco Use Types Packs/Day Years Used Date Smoking Tobacco: Former Pipe Passive Smoke Exposure: Past Smokeless Tobacco: Never Comments:Smoke pipe for 10 y ears since 13 years old, Does still smoke pot but is slowing down. Passive Exposure Comments:Second hand smoke since 0087-7326 Sex and Gender Information Value Date Recorded Sex Assigned at Not on file Gender Identity Not on file Sexual Orientation Not on file documented as of this encounter Plan of Treatment Upcoming Encounters Date Type Department Care Team (Late Contact Info) Description 05/23/2024 9:30 AM EST Infusion Hematology Oncology at [address] [address] 05/30/2024 9:00 AM EST Infusion Hematology Oncology at [address] [address] 06/05/2024 9:15 AM EST Laboratory App[place]ment [place] [facility] [place] [address] [place] [address] 06/05/2024 10:30 AM EST Office Visit Hematology [place] [address] Albania Chahal MD [facility] HEMATOLOGY/[place] [address] 06/05/2024 1:00 PM EST Appointment Hematology [place] [address] 06/26/2024 9:15 AM EST Laboratory App[place]ment [place] [facility] [place] [address] [place] [address] 06/26/2024 10:30 AM EST Office Visit Hematology [place] [address] Albania Chahal MD [facility] HEMATOLOGY[place] [address] 06/26/2024 12:00 PM EST Appointment Hematology [place] [address] 07/17/2024 9:30 AM EST Laboratory Appointment [place] [facility] [place] [address] [address] 07/17/2024 10:30 AM EST Office Visit Hematology [place] [address] Albania Chahal MD [facility] HEMATOLOGY[place] [address] 07/17/2024 12:00 PM EST Appointment Hematology [place] [address] documented as of this encounter Visit Diagnoses Not on filedocumented in this encounter Care Teams Linux Admin Engineer Relationship Specialty Start Date End Date America Caro MD [address] [place] [address] PCP - General Family Medicine 03/31/24 documented as of this encounter
--- OUTSIDE RECORDS SUMMARY | 2024-05-23 01:23 | XMS_ITS | Encounter Summary ---
[place] [address] Care Team Providers Care Patient Safety Tech Name Role Phone America Caro MD Primary Care Provider [phone] Encounter Details Date Type Department Care Team (Late st Contact Info) Description 04/04/2024 Telephone [place] [address] Regina Alves Social History Tobacco Use Types Packs/Day Years Used Date Smoking Tobacco: Never Assessed B1300 Health Literacy Answer Date Recor ded How often do you need to hav e someone help you when you read instructions, pamphlets, or other written material from your doctor or pharmacy? Never 05/04/2024 [facility] Utilities Answer Date Recorded In the [...] were you homeless or living in a prison (including now)? No 05/04/2024 Sex and Gender Information Value Date Recorded Sex Assigned at Not on file Gender Identity Not on file Sexual Orientation Not on file documented as of this encounter Plan of Treatment Upcoming Encounters Date Type Department Care Team (Late st Contact Info) Description 05/23/2024 9:30 AM EST Infusion Hematology Oncology at [address] [address] 05/30/2024 9:00 AM EST Infusion Hematology Oncology at [address] [address] 06/05/2024 9:15 AM EST Laboratory Appointment Lab at [facility] On[place] [address] [place] [address] 06/05/2024 10:30 AM EST Office Visit Hematology [place] [address] Albania Chahal MD [facility] HEMATOLOGY[place] [address] 06/05/2024 1:00 PM EST Appointment Hematology [place] [address] 06/26/2024 9:15 AM EST Laboratory Appointment Lab at [facility] [place]ology Oncology [address] [place] [address] 06/26/2024 10:30 AM EST Office Visit Hematology [place] [address] Albania Chahal MD [facility] [place]EMATOLOGY[place] [address] 06/26/2024 12:00 PM EST Appointment Hematology [place] [address] 07/17/2024 9:30 AM EST Laboratory Appointment Lab at [facility] Hematology Oncology [address] [place] [address] 07/17/2024 10:30 AM EST Office Visit Hematology [place] [address] Albania Chahal MD [facility] HEMATOLOGY[place] [address] 07/17/2024 12:00 PM EST Appointment Hematology [place] [address] documented as of this encounter Visit Diagnoses Not on filedocumented in this encounter Care Teams Patient Safety Tech Relationship Specialty Start Date End Date America Caro MD [address] [place] [address] PCP - General Family Medicine 03/31/24 documented as of this encounter
--- OUTSIDE RECORDS SUMMARY | 2024-05-23 01:23 | XMS_ITS | Encounter Summary ---
Author Organization Formerly [facility] Address [facility] [place] [address] Care Team Providers Care Vp Software Support Name Role Phone America Caro MD Primary Care Provider [phone] Reason for Visit * Reason Comments Establish Care * Consultation (Urgent) - Authorized Specialty Diagnoses / Procedures Referred By Contac t Referred To Contact Pulmonology Diagnoses Other nonspecific abnormal finding of lung field Multiple lung nodules America Caro MD [address] [place] [address] [facility] Pulmonology [address] [place] [phone] Referral ID Status Reason Start Date Expiration Date Visits Requested Visits Authorized [id number] Authorized Consult, Test & Treat PCP Updated and/or Approved 03/31/2024 03/30/2025 6 6 Encounter Details Date Type Department Care Team (Late st Contact Info) Description 04/16/2024 10:40 AM EDT Office [place] [address] Andrea Freeman MD [facility] [place] [address] Pleural effusion, bilateral (Primary Dx); Laboratory procedure Social History Tobacco Use Types Packs/Day Years Used Date Smoking Tobacco: Former Pipe Passive Smoke Exposure: Past Smokeless Tobacco: Never Tobacco Cessation:Counseling Given: Not Answered Comments:Smoke pipe for 10 years since 13 years old, Does still smoke pot but is slowing down. Passive Exposure Comments:Second hand smoke since [id number] Sex and Gender Information Value Date Recorded Sex Assigned at Not on file Gender Identity Not on file Sexual Orientation Not on file documented as of this encounter Last Filed Vital Signs Vital Sign Reading Time Taken Comments Blood Pressure 116/83 04/16/2024 10:28 AM EDT Pulse 66 04/16/2024 10:28 AM EDT Temperature 36.1 ??C (97 ??F) 04/16/2024 10:28 AM EDT Respiratory Rate 18 04/16/2024 10:28 AM EDT Oxygen Saturation 98% 04/16/2024 10:28 AM EDT Inhaled Oxygen Concentration - - Weight 66.7 kg (147 lb) 04/16/2024 10:28 AM EDT Height 160 cm (5' 3) 04/16/2024 10:28 AM EDT Body Mass Index 26.04 04/16/2024 10:28 AM EDT documented in this encounter Progress Notes * Jess Denise MD - 04/16/2024 10:40 AM EDT Images from the original note were not included. INTERVENTIONAL PULMONOLOGY OUTPATIENT CONSULT NOTE SECTION OF PULMONARY & CRITICAL CARE MEDICINE PATIENT NAME: Henry Javier : 1955 MEDICAL RECORD: [id number] PRIMARY CARE PHYSICIAN: America Caro MD REFERRING PROVIDER: [place] [address] I have been asked to see Henry Javier in consultation at the request of America Caro for the evaluation and management of multiple pulmonary nodules, a pleural effusion, and mediastinal mass . History of Present Illness: Mr. Henry Javier is a 68 y.o. gentleman without significant past medical history. He states thatback in April 2023 he was out on a hunting trip and woke up with with acute chest pain prompting ED presentaiton to [facility]. He underwent cardiac eval and CXR which was unremarkable. Continuedon his trip with intermittent chest pain which he attributed to GERD and muscle soreness from shooting. Since, he has had intermittent chest pain without provoking or alleviating factors other than occasionally pleuritic and raised the subject with his PCP who ordered imaging, normal CXR in October. Additional thought of GERD with one month of omeprazole and maybe some aid. In addition to a possible post prandial component, he underwent HIDA followed by laparoscopic choleystectomy 02/18 and found some improvement. Recurrence of his symptoms two week post op and at his follow up mentioned with suspected ongoing post operative recovery and follow up in one month. It progressed to bilateral clavicular pain, thus ED presentation and initial CT chest. Since has felt more SOB over the past two weeks with PET scan on 04/11. He has also seen cardiology for pericardial effusion who suspect pericarditis component to his pain now on colchicine and ibuprofen. He remains active but has new limitations previously walking 3-5 miles a day but now will need to rest after a mile especially if out with a neighbor and talking. Climbed the stairs with SOB today where in the past year he was able to walk and due outdoor labor without limits. 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 He had a sister and niece with lung cancer, both smokers. He denies personal cancer history or prior radiation. 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 Denies carcinogenic exposure occupationally. Formed pipe smoker form agers [age] (1-2 pipes a day) and has been smoking marijuana regularly since high school just transitioned to edibles. Review of Systems: A 12 point ROS was negative aside from as listed in the HPI. Past Medical History: There is no problem list on file for this patient. Medications: Prior to Admission medications Not on File Objective: Patient Vitals for the past 24 hrs: Temp Pulse Resp BP SpO2 04/16/24 1028 36.1 ??C (97 ??F) 66 18 116/83 98 % General: This is a 68 y.o. male, well appearing, ambulated into clinic off supplemental oxygen HEENT: Moist mucous membranes, sclera are white Neck: Supple, trachea is midline, no gross deformity Lymphatics: No obvious lymphadenopathy Cardiovascular: Nl s1/s2, rrr, audible despite effusion on imaging, without LE edema Respiratory: Clear to auscultation bilaterally with decreased bibasilar breath sounds GI: soft, nt, nd Extremities: no LE edema noted, no clubbing Family History: Sister and niece with lung cancer Social History: Smoking status: Former pipe smoker Smoking history: N/A- 1-2 pipes per day for 10 years EtOH: None Other drugs: Reports none 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 PET 04/11/2024: New bilateral pleural effusions L>R since 03/28/2024 with FDG avid mediastinal mass. FDG avid pericardial thickening with large pericardia effusion R supraclavicular, R paratracheal, subcarinal, and bilateral hilar lymphadenopathy Multiple FDG avid subcentimeter lung nodules Osseous metastasis in L sacral and likely R ribs 3 and 4 Echo 04/02/2024: Interpretation Summary -There is a moderate pericardial [...] valve disease. -No comparison study is available. Assessment: Mr. Henry Javier is a pleasant 68 y.o. gentleman who has been sent to me for consultation in regards to mediastinal mass, pericardial effusion, pulmonary nodules, and pleural effusion. Ongoing chest pain for the past year with recent SOB and new CT chest demonstrating mediastinal mass, pulmonarynodules, and large pericardial effusion 03/28. PET 04/11 with further identification of abnormalities with FDG avid mediastinal mass, pulmonary nodules, pericardium and concern for osseus metastasis and lymphadenopathy with new bilateral pleural effusions since 03/28 CT chest. His initial impression was that this definitively states he has lung carcer. Discussed that he may, but here is no way to know definitely and in the presence of a mediastinal mass, there is equal consideration for thymic, thy roid, or lymphomatoid origin. Overall relayed that his imaging is concerning for malignancy regardless of origin and progressing with new pleural effusions just in the past two weeks. Discussed the ability to do a thoracentesis today to send for studies including LDH, protein, albumin, glucose, culture, cell count cytology and flow cytometry. He agreed and will proceed with throa, see sperate procedure note for details. Discussed other methods for sampling pending thoracentesis results and possible staging by EBUS if warranted. Also raised the subject of an MRI venus should this be pulmonary in origin. The patient's performance status using the ECOG assessment tool is 0 (fully active, no res trictions), decreased stamina compared to prior though. Mr. Henry Javier was provided ample timeto ask questions which were answered to his liking. Recommendations: Thoracentesis today with LDH, protein, albumin, glucose, culture, cell count cytology and flow cytometry Further sampling pending thoracentesis results Discussed possible staging by EBUS if warranted Note to be sent to America Caro MD Follow-up with me at time of pending phone call to discuss next steps in management Jess Denise MD Pulmonary and Critical Care PGY-5 Pager [phone] 04/16/2024 8:26 AM * BackerAndrea MD - 04/16/2024 10:40 AM EDT I have seen the patient in person and reviewed the fellow's below stated history and I agree with the details as written. The assessment and plan were formulated in discussion with me and I agree with them as documented. In addition, Mr. Javier was sent to us for evaluation of abnormal chest imaging. He has experienced extensive chest wall pain for the last year and more recent fatigue (without additional respiratory or constitutional symptoms). He had a remote tobacco history but smokes THC regularly and has a family history of lung cancer. His first time cross-sectional chest imaging from last month demonstratesa dominant FDG anterior mediastinal mass, multiple FDG avid bilateral pulmonary nodules, FDG avid mediastinal lymphadenopathy, FDG avid pericardial thickening w/ large pericardial effusion, L>R pleural effusions and FDG avid osseous metastases. The effusions are new on a 04/11/24 PET/CT and not present on 03/28/24 CT chest imaging. His imaging is highly concerning for metastatic disease with thedifferential being broad and including primary lung cancer, thymic malignancy and lymphoproliferative disease not ruled out. He has not had an MR brain. The plan for today is to move forward with diag nostic/therapeutic thoracentesis in clinic (see separate note). If non- diagnostic, the LLL FDG avidnodule should be amenable to bronchoscopy with linear EBUS. We did discuss the role of surgical biopsy of the anterior mediastinal mass in select cases. He understands he may require an MR brain depending upon final histology. No role for referral to oncology until a diagnosis is secured. Andrea Freeman MD, 04/16/2024, 10:52 AM Interventional Pulmonology Section of Pulmonary & Critical Care Pager: [phone] documented in this encounter Procedure Notes * Seven Saha MD - 04/16/2024 10:40 AM EDTProcedure(s): THORACENTESIS, NEEDLE OR CATHETER; WITH IMAGE GUIDANCE Pre-Procedure Diagnose(s): Pleural effusion Post-Procedure Diagnose(s): Pleural effusion Images from the original note were not included. INTERVENTIONAL PULMONOLOGY PROCEDURE NOTE SECTION OF PULMONARY & CRITICAL CARE MEDICINE Patient Name: Henry Javier Patient Patient : 1955 Procedure Date: 04/16/2024 Procedure(s): Thoracentesis with US guidance (Left chest) Procedure Location: Pulmonary clinic () Indication: Pleural effusion Attending(s) of Record: Seven Saha MD Others Present: Jess Denise MD Medications: Lidocaine 1% without Epi 10 mL subcutaneous Sedation Time: N/A Time Out: Performed The patient's medical record [...] condition to undergo the procedure. Procedure Descriptions: Thoracentesis with Ultrasound Guidance (24371): The patient was placed in an upright seated position. An ultrasound examination of the left chest was performed and a moderate was identified. The diaphragm, heart and lung tissue were clearly visualized. An appropriate site for pleural access was marked on the superior margin of the rib; the site was cleaned and draped in usual sterile fashion. 10 mL of 1% Lidocaine were used for local anesthesia. A 4 mm incision was made and an 8F thoracentesis catheter over 18 gauge needle was inserted into the left pleural space without difficulty. A total of 750 mL of serosanguinous pleural fluid was removed without difficulty. Drainage was discontinued after the development of chest discomfort. Fluid was sent for chemistries, culture, and cytology. A post-procedure ultrasound was not performed. The patient tolerated the procedure well and a post-procedure radiograph has been ordered. The Myrio Pleura-Seal thoracentesis kit was used for this procedure. Any disposable equipmentwas visually inspected and deemed to be intact immediately post procedure. Estimated Blood Loss: <5 mL Complications: None Relevant Pictures Recommendations: Successful left thoracentesis with US guidance A post-procedural chest radiograph has been ordered Await pending results in the next 3-5 business days Follow-up with referring provider as previously arranged Seven Saha MD. 04/16/2024, 12:23 PM Interventional Pulmonology Section of Pulmonary & Critical Care Pager: [phone] documented in this encounter Plan of Treatment Upcoming Encounters Date Type Department Care Team (Late st Contact Info) Description 05/23/2024 9:30 AM EST Infusion Hematology Oncology at [address] [phone] 05/30/2024 9:00 AM EST Infusion Hematology Oncology at [address] [phone] 06/05/2024 9:15 AM EST Laboratory Appointment Lab at [facility] Hematology Oncology [address] [place] [address] 06/05/2024 10:30 AM EST Office Visit Hematology [place] [address] Albania Chahal MD [facility] HEMATOLOGY/[place] [address] 06/05/2024 1:00 PM EST Appointment Hematology [place] [address] 06/26/2024 9:15 AM EST Laboratory Appointment Lab at [facility] Hematology Oncology [address] [place] [address] 06/26/2024 10:30 AM EST Office Visit Hematology [place] [phone] [place]ia Chahal MD [facility] HEMATOLOGY/[place] [address] 06/26/2024 12:00 PM EST Appointment Hematology [place] [address] 07/17/2024 9:30 AM EST Laboratory Appointment Lab at [address] [address] 07/17/2024 10:30 AM EST Office Visit Hematology [place] [address] Albania Chahal MD [facility] [address] [facility]/[place] [address] 07/17/2024 12:00 PM EST Appointment Hematology [place] [address] documented as of this encounter Procedures Procedure Name Priority Date/Time Associated Diagnosis Comments IMMUNOPHENOTYPING FLOW CYTOMETRY (NON-BLOOD) Routine 04/16/2024 11:45 AM EDT Pleural effusion, bilateral PATHOLOGY FLUID REVIEW Routine 11:45 AM EDT Pleural effusion, bilateral CELL COUNT PULMONARY FLUID ([facility]) Routine 04/16/2024 11:45 AM EDT Pleural effusion, bilateral BODY FLUID CULTURE, AEROBIC Routine 04/16/2024 11:45 AM EDT Pleural effusion, bilateral PROTEIN LEVEL BODY FLUID Routine 11:45 AM EDT Pleural effusion, bilateral LACTATE DEHYDROGENASE BODY FLUID Routine 04/16/2024 11:45 AM EDT Laboratory procedure GLUCOSE LEVEL BODY FLUID Routine 11:45 AM EDT Pleural effusion, bilateral ALBUMIN LEVEL BODY FLUID Routine 11:45 AM EDT Pleural effusion, bilateral CYTOLOGY NON-WINDOWS SECURITY ANALYST Routine 04/16/2024 10:5 2 AM EDT Pleural effusion, bilateral documented in this encounter Results * XR Chest PA & Lateral (Generic) (04/16/2024 1:08 PM EDT) WORKSTATION ID [id number] RAD Anatomical Region Laterality Modality Chest N/A Digital Radiogra phy Impressions 04/16/2024 1:44 PM EDT Trace posterior pleural effusions. No pneumothorax. Thank you for letting us participate in the care of this patient. ??If you are a health care provider and have any questions regarding this report, please contact the number below. ??For patients who have questions please contact the health transitional care manager that requested your imaging first. ? Electronically signed by: JOSE ROBERTO CHAPIN MD, [facility] ([phone]), at 04/16/2024 1:44 PM Narrative 04/16/2024 1:44 [...] patients who have questions please contactthe health transitional care manager that requested your imaging first. Electronically signed by: JOSE ROBERTO CHAPIN MDH[facility]([phone]), at 04/16/2024 1:44 PM Seven Saha MD IMG DX ORDERABLES * (ABNORMAL) Comprehensive metabolic panel Non-fasting (04/16/2024 12:47 PM EDT) Glucose 97 65 - 199 mg/dL 04/16/2024 1:32 PM EDT [facility] Comment:Glucose Concentratio n >=200 mg/dL plus symptoms is consistent with Diabetes Mellitus. Blood Urea Nitrogen 14 10 - 20 mg/dL 04/16/2024 1:[address] [facility] Creatinine 0.71(L) 0.80 - 1.50 mg/dL 04/16/2024 1:[address] [facility] Sodium 140 135 - 145 mMol/L 04/16/2024 1:[address] [facility] Potassium 4.1 3.5 - 5.0 mMol/L 04/16/2024 1:[address] [facility] Chloride 103 98 - 107 mMol/L 04/16/2024 1:[address] [facility] Carbon Dioxide 27 22 - 31 mMol/L 04/16/2024 1:[address] [facility] Anion Gap 10 5 - 15 mMol/L 04/16/2024 1:[address] [facility] Calcium 9.0 8.5 - 10.5 mg/dL 04/16/2024 1:[address] [facility] Protein, Total 7.1 6.1 - 8.0 g/dL 04/16/2024 1:[address] [facility] Albumin 3.5 3.2 - 5.2 g/dL 04/16/2024 1:[address] [facility] Aspartate Aminotransferase 27 <=39 unit/L 04/16/2024 1:[address] [facility] Alanine Aminotransferase 30 0 - 55 unit/L 04/16/2024 1:[address] [facility] Alkaline Phosphatase 419(H) 40 - 130 unit/L 04/16/2024 1:[address] [facility] Bilirubin, Total 0.5 <=1.3 mg/dL 04/16/2024 1:[address] [facility] Est Glomerular Filtration Rate - Male 99 mL/min/1. 73 m?? 04/16/2024 1:[address] [facility] Comment: This patient's estimated GFR [...] Fasting Status No 04/16/2024 1:32 PM EDT [facility] Blood VENOUS BLOOD SPECIMEN / Unknown Venipuncture / Unknown 04/16/2024 12:47 PM EDT 04/16/2024 12:47 PM EDT Seven Saha MD CHEMISTRY ORDERABLES Performing Organization Address City/[facility]/ZIP Co de Phone Number [facility] [place] [address] * (ABNORMAL) Lactate Dehydrogenase (04/16/2024 12:47 PM EDT) Lactate Dehydrogenase 275(H) 110 - 220 unit/L 04/16/2024 1:32 PM EDT [facility] Blood VENOUS BLOOD SPECIMEN / Unknown Venipuncture / Unknown 04/16/2024 12:47 PM EDT 04/16/2024 12:47 PM EDT Seven Saha MD CHEMISTRY ORDERABLES Performing Organization Address City/[facility]/ZIP Co de Phone Number [facility] [place] [address] * (ABNORMAL) CBC (with Diff) (04/16/2024 12:47 PM EDT) White Blood Cell 8.36 4.00 - 9.50 x10(3)/mc L 04/16/2024 1:04 PM EDT [facility] Red Blood Cell 4.54(L) 4.58 - 5.54 x10(6)/mc L 04/16/2024 1:04 PM EDT [facility] Hemoglobin 12.1(L) 13.7 - 16.5 g/dL 04/16/2024 1:[address] [facility] Hematocrit 37.5(L) 40.5 - 48.5 % 04/16/2024 1:[address] [facility] Mean Cell Volume 82.6(L) 82.9 - 93.1 fL 04/16/2024 1:[address] [facility] Mean Cell Hemoglobin 26.7(L) 27.5 - 32.1 pg 04/16/2024 1:[address] [facility] Mean Cell Hemoglobin Concentration 32.3 32.0 - 35.7 g/dL 04/16/2024 1:[address] [facility] Platelet 725(H) 145 - 357 x10(3)/mc L 04/16/2024 1:[address] [facility] Mean Platelet Volume 8.5 7.6 - 12.9 fL 04/16/2024 1:[address] [facility] RDW Standard Deviation 45.0 36.0 - 45.0 fL 04/16/2024 1:[address] [facility] RDW coefficient of variation 14.9(H) 11.4 - 13.8 % 04/16/2024 1:[address] [facility] NRBC% auto 0.0 % 04/16/2024 1:[address] [facility] NRBC Absolute <0.01 <0.01 x10(3)/mc L 04/16/2024 1:[address] [facility] Neutrophil % 77.2 % 04/16/2024 1:[address] [facility] Neutrophil Absolute (ANC) - Automated 6.46(H) 1.70 - 6.10 x10(3)/mc L 04/16/2024 1:[address] [facility] Lymph % 14.0 % 04/16/2024 1:[address] [facility] Lymph Absolute 1.17 0.90 - 3.20 x10(3)/mc L 04/16/2024 1:04 PM EDT [facility] Monocyte % 7.2 % 04/16/2024 1:04 PM EDT [facility] Monocyte Absolute 0.60 0.30 - 0.90 x10(3)/mc L 04/16/2024 1:04 PM EDT [facility] Eos % 0.5 % 04/16/2024 1:04 PM EDT [facility] Eos Absolute 0.04 0.00 - 0.40 x10(3)/mc L 04/16/2024 1:04 PM EDT [facility] Basophil % 0.4 % 04/16/2024 1:04 PM EDT [facility] Baso Absolute <0.04 0.00 - 0.10 x10(3)/mc L 04/16/2024 1:04 PM EDT [facility] Immature Gran % 0.7 % 1:04 PM EDT [facility] Immature Gran Absolute 0.06(H) 0.00 - 0.04 x10(3)/mc L 04/16/2024 1:04 PM EDT [facility] Blood VENOUS BLOOD SPECIMEN / Unknown Venipuncture / Unknown 04/16/2024 12:47 PM EDT 04/16/2024 12:47 PM EDT Seven Saha MD HEMATOLOGY ORDERABLE S [facility] [place] [address] * Pathology Fluid Review (04/16/2024 11:45 AM [...] more definitive diagnosis. 04/17/2024 1:08 PM EDT [facility] Pathology Slide Review 04/17/2024 1:08 PM EDT [facility] Signing Pathologist This result has been reviewed by TERRY JEAN-BAPTISTE MD on 04/17/24 at 1:08 PM. 04/17/2024 1:08 PM EDT [facility] Body Fluid LEFT PLEURAL FLUID / Unknown 04/16/2024 11:45 AM EDT 04/16/2024 1:21 PM EDT Seven Saha MD BODY FLUIDS AND STOO LS ORDERABLES Performing Organization Address [facility] Co de Phone Number [facility] [place] [address] * Lactate Dehydrogenase Body Fluid (04/16/2024 11:45 AM EDT) Lactate Dehydrogenase, Fluid 246 unit/L 04/16/2024 2:00 PM EDT [facility] Comment:Reference intervals are unavailable for this test in body fluids. Comparison of this result with the concentration in blood serum or plasma is recommended. This test has not been cleared by the [place] FDA. Performance characteristics of this test for the analysis of body fluids were determined by [facility] in accordance with CLIA requirements. This laboratory is qualified under CLIA to perform high-complexity testing. Body Fluid Source Pleural Fluid, Left 04/16/2024 2:00 PM EDT [facility] Body Fluid LEFT PLEURAL FLUID / Unknown 04/16/2024 11:45 AM EDT 04/16/2024 1:21 PM EDT Andrea Freeman MD BODY FLUIDS AND STOO LS ORDERABLES Performing Organization Address [facility]/ZIP Co de Phone Number [facility] [place] [address] * Immunophenotyping Flow Cytometry (04/16/2024 11:45 AM EDT) Final Diagnosis - No monotypic B-cell population or phenotypically abnormal T-cell population is detected. 04/17/2024 12:[address] [facility] Signing Pathologist This result has been reviewed by Jim Forrest MD on 04/17/24 at 12:48 PM. 04/17/2024 12:[address] [facility] Interpretation No monotypic B-cell population detected. The T-cell CD4:CD8 ratio is 3.7:1, and no specific calderon-T-cell marker aberrancies are detected. 04/17/2024 12:[address] [facility] Lymphocyte % 30.3 % 04/17/2024 12:[address] [facility] Monocyte % 11.8 % 04/17/2024 12:[address] [facility] Granulocyte % 32.6 % 04/17/2024 12:[address] [facility] CD45 DIM % 0.4 % 04/17/2024 12:[address] [facility] LABORATORY CD3+ % 64.0 % 04/17/2024 12:[address] [facility] CD19+ % 8.0 % 04/17/2024 12:[address] [facility] CD56+ % 26.0 % 04/17/2024 12:[address] [facility] B-Cell:T-Cell Ratio 0.1 04/17/2024 12:[address] [facility] [place]:Lambda Ratio 0.9 04/17/2024 12:[address] [facility] CD4:CD8 Ratio 3.7 04/17/2024 12:[address] [facility] Cell Viability % 98.5 % 04/17/20 12:[address] [facility] Specimen Processing Cells for immunophenotypic analysis were derived from pleural fluid. The following markers were assessed: CD2, CD3, CD4, CD5, CD7, CD8, CD10, CD19, CD45, CD56, kappa light chain, and lambda light chain. 04/17/2024 12:48 PM EDT [facility] Disclaimer Flow analysis is an ancillary study. A definite diagnosis requires correlation with the morphologic features of this process and if necessary, correlation with other ancillary studies like immunohistochemist ry, enzyme cytochemistry and/or cyto/molecular genetics. This test was developed and its performance characteristics determined by the Clinical Flow Cytometry Laboratory at [facility]. It has not been cleared or approved [...] to perform high complexity clinical laboratory testing. 04/17/2024 12:48 PM EDT [facility] Body Fluid LEFT PLEURAL FLUID / Unknown 04/16/2024 11:45 AM EDT 04/16/2024 1:21 PM EDT Seven Saha MD HEMATOLOGY ORDERABLE S [facility] [place] [address] * Albumin Level Body Fluid (04/16/2024 11:45 AM EDT) Albumin, Fluid 2.1 g/dL 04/16/2024 2:00 PM EDT [facility] Comment:Reference intervals are unavailable for this test in body fluids. Comparison of this result with the concentration in blood serum or plasma is recommended. This test has not been cleared by the [place] FDA. Performance characteristics of this test for the analysis of body fluids were determined by [facility] in accordance with CLIA requirements. This laboratory is qualified under CLIA to perform high-complexity testing. Body Fluid Source Pleural Fluid, Left 04/16/2024 2:00 PM EDT [facility] Body Fluid LEFT PLEURAL FLUID / Unknown 04/16/2024 11:45 AM EDT 04/16/2024 1:21 PM EDT Seven Saha MD BODY FLUIDS AND STOO LS ORDERABLES Performing Organization Address City/[facility]/ZIP Co de Phone Number [facility] [place] [address] * Body Fluid Culture, Aerobic (04/16/2024 11:45 AM EDT) Body Fluid Culture No growth 04/20/2024 9:44 AM EDT [facility] Gram Stain Cytocentrifuge Gram Stain performed 04/20/2024 9:44 AM EDT [facility] Gram Stain Neutrophils seen 04/20/20 9:44 AM EDT [facility] Gram Stain No microorganisms seen 04/20/2024 9:44 AM EDT [facility] Body Fluid LEFT PLEURAL FLUID / Unknown 04/16/2024 11:45 AM EDT 04/16/2024 1:21 PM EDT Seven Saha MD MICROBIOLOGY - GENER AL ORDERABLES Performing Organization Address [facility]/ZIP Co de Phone Number [facility] [place] [address] * Glucose Level Body Fluid (04/16/2024 11:45 AM EDT) Glucose, Fluid 107 mg/dL 04/16/2024 2:00 PM EDT [facility] Body Fluid Source Pleural Fluid, Left 04/16/2024 2:00 PM EDT [facility] Body Fluid LEFT PLEURAL FLUID / Unknown 04/16/2024 11:45 AM EDT 04/16/2024 1:21 PM EDT Narrative [facility] - 04/16/2024 2:00 PM EDT Reference intervals are unavailable for this test in body fluids. Comparison of this result with the concentration in blood, serum, or plasma is recommended. This test has not been cleared by the [place] FDA. Performance characteristics of this test for the analysis of body fluids were determined by [facility] in accordance with CLIA requirements. This laboratory is qualified under CLIA to perform high-complexity testing. Seven Saha MD BODY FLUIDS AND STOO LS ORDERABLES Performing Organization Address [facility] Co de Phone Number [facility] [place] [place] [address] * Protein Level Body Fluid (04/16/2024 11:45 AM EDT) Protein, Fluid 3.6 g/dL 04/16/2024 2:00 PM EDT [facility] Comment:Reference intervals are unavailable for this test in body fluids. Comparison of this result with the concentration in blood serum or plasma is recommended. This test has not been cleared by the [place] FDA. Performance characteristics of this test for the analysis of body fluids were determined by [facility] in accordance with CLIA requirements. This laboratory is qualified under CLIA to perform high-complexity testing. Body Fluid Source Pleural Fluid, Left 04/16/2024 2:00 PM EDT [facility] Body Fluid LEFT PLEURAL FLUID / Unknown 04/16/2024 11:45 AM EDT 04/16/2024 1:21 PM EDT Seven Saha MD BODY FLUIDS AND STOO LS ORDERABLES Performing Organization Address [facility] Co de Phone Number [facility] [place] [address] * (ABNORMAL) Cell Count Pulmonary Fluid ([facility]) (04/16/2024 11:45 AM EDT) Color, [place]ld [place] 04/16/2024 2:06 PM EDT [facility] Appearance, PF Slightly Cloudy 04/16/2024 2:06 PM EDT [facility] Seg PF Count 43 % 04/16/2024 2:06 PM EDT [facility] Lymph PF Count 34 % 04/16/2024 2:06 PM EDT [facility] Macrophage PF Count 23 % 04/16/2024 2:06 PM EDT [facility] WBC Count, PF 1,093(H) <500 Cells 04/16/2024 2:06 PM EDT [facility] Comment: All body fluid results should always be interpreted in light of the total clinical presentation of the patient, including clinical history, data from additional tests and other appropriate information. FLUID DIFF COUNT 200 04/16/20 24 2:06 PM EDT [facility] Body Fluid LEFT PLEURAL FLUID / Unknown 04/16/2024 11:45 AM EDT 04/16/2024 1:21 PM EDT Seven Saha MD BODY FLUIDS AND STOO LS ORDERABLES [facility] [place] [address] * Cytology Non-WINDOWS SECURITY ANALYST (04/16/2024 10:52 AM EDT) Case Report Medical Cytology Report ? Case: [id number] ? Authorizing Provider: ??Seven Saha MD ? Collected: ? 04/16/2024 1052 ? Ordering Location: ? Pulmonology at [facility] ?Received: ?04/16/2024 1311 ? Pathologist: ? Jose Luis Matute MD ? Specimen: ?Pleural Fluid, Left ? 04/18/2024 5:[address] [facility] Specimen Source Pleural Fluid, Left 04/18/2024 5:[address] [facility] Final Diagnosis Negative for malignancy 04/18/2024 5:[address] [facility] Diagnosis Discussion Predominantly reactive mesothelial cells, macrophages, neutrophils, and lymphocytes present. No overtly cytologically malignant cells seen. Cell block was examined. 04/18/2024 5:[address] [facility] Specimen Adequacy Satisfactory for evaluation. 04/18/2024 5:[address] [facility] Additional Studies Task ID IHC/Special Stains Result A2-2 Calretinin Positive in mesothelial cells A2-3 CEA [place] Negative A2-4 CD68 Positive in macrophages 04/18/2024 5:[address] [facility] Disclaimer(s) [...] and other diagnostic tests. 04/18/2024 5:[address] [facility] Clinical Information Mediastinal mass 04/18/2024 5:[address] [facility] Gross Description Received fresh, approximately 90 mL total volume of cloudy, red fluid with light flecks. Total preparation: ThinPrep: 1 and Cell Block: 1. 04/18/2024 5:[address] [facility] Result Note Routine 04/18/2024 5:[address] [facility] Body Fluid LEFT PLEURAL FLUID / Unknown 04/16/2024 10:52 AM EDT 04/16/2024 1:11 PM EDT Seven Saha MD PATHOLOGY/CYTOLOGY O RDERABLES Performing Organization Address City/State/[facility] Co de Phone Number [facility] [place] [address] documented in this encounter Visit Diagnoses Diagnosis Pleural effusion, bilateral- Primary Unspecified pleural effusion Laboratory procedure Laboratory examination, unspecified Pleural effusion, bilateral Unspecified pleural effusion documented in this encounter Care Teams Vp Software Support Relationship Specialty Start Date End Date America Caro MD [address] [place] [address] PCP - General Family Medicine 03/31/24 documented as of this encounter
--- OUTSIDE RECORDS SUMMARY | 2024-05-23 01:23 | XMS_ITS | Encounter Summary ---
Author Organization [facility] [place] [address] Care Team Providers Care Underwear Finisher Name Role Phone America Caro MD Primary Care Provider [phone] Encounter Details Date Type Department Care Team (Latest Contact Info) Description 04/16/2024 Travel Social History Tobacco Use Types Packs/Day Years Used Date Smoking Tobacco: Former Pipe Passive Smoke Exposure: Past Smokeless Tobacco: Never Comments:Smoke pipe for 10 y ears since 13 years old, Does still smoke pot but is slowing down. Passive Exposure Comments:Second hand smoke since 0244-9103 Sex and Gender Information Value Date Recorded Sex Assigned at Not on file Gender Identity Not on file Sexual Orientation Not on file documented as of this encounter Plan of Treatment Upcoming Encounters Date Type Department Care Team (Late st Contact Info) Description 05/23/2024 9:30 AM EST Infusion Hematology Oncology at [address] [address] 05/30/2024 9:00 AM EST Infusion Hematology Oncology at [address] [address] 06/05/2024 9:15 AM EST Laboratory Appointment Lab at [facility] Hematology Oncology [address] [place] [address] 06/05/2024 10:30 AM EST Office Visit Hematology [place] [address] Albania Chahal MD [facility] HEMATOLOGY/[place] [address] 06/05/2024 1:00 PM EST Appointment Hematology and Oncology at [place] [phone] 06/26/2024 9:15 AM EST Laboratory Appointment Lab at [address] [address] 06/26/2024 10:30 AM EST Office Visit Hematology and Oncology at [place] [phone] Albania Chahal MD [facility] HEMATOLOGY/[place] [address] 06/26/2024 12:00 PM EST Appointment Hematology [place] [address] 07/17/2024 9:30 AM EST Laboratory Appointment Lab at [address] [address] 07/17/2024 10:30 AM EST Office Visit Hematology and Oncology at [place] [phone] Albania Chahal MD [facility] HEMATOLOGY/[place] [address] 07/17/2024 12:00 PM EST Appointment Hematology [place] [address] documented as of this encounter Visit Diagnoses Not on filedocumented in this encounter Care Teams Underwear Finisher Relationship Specialty Start Date End Date America Caro MD [address] [place] [address] PCP - General Family Medicine 03/31/24 documented as of this encounter
--- OUTSIDE RECORDS SUMMARY | 2024-05-23 01:23 | XMS_ITS | Encounter Summary ---
[place] [address] Care Team Providers Care Dimethylaniline Sulfator Operator Name Role Phone America Caro MD Primary Care Provider Encounter Details Date Type Department Care Team (Late st Contact Info) Description 05/06/2024 Notes Only Hematology [place] [phone] Olga Ceballos RN Social History Tobacco Use Types Packs/Day Years Used Date Smoking Tobacco: Former Pipe Passive Smoke Exposure: Past Smokeless Tobacco: Never Comments:Smoke pipe for 10 y ears since 13 years old, Does still smoke pot but is slowing down. Passive Exposure Comments:Second hand smoke since 1804-4153 Alcohol Use Standard Drinks/Week Comments Yes 14 (1 standard drink = 0.6 oz pure alcohol) hardly any for the last month B1300 Health Literacy Answer Date Recor ded How often do you need to hav e someone help you when you read instructions, pamphlets, or other written material from your doctor or pharmacy? Never 05/04/2024 [facility] Utilities Answer Date Recorded In the [...] any time in the past 12 m [facility], were you homeless or living in a care home (including now)? No 05/04/2024 Sex and Gender Information Value Date Recorded Sex Assigned at Not on file Gender Identity Not on file Sexual Orientation Not on file documented as of this encounter Progress Notes * Olga Ceballos RN - 05/06/2024 12:48 PM EDT Test requisition form, pt demographics/insurance and lab specimens collected and shipped to [facility]. FedEx: [id number]. documented in this encounter Plan of Treatment Upcoming Encounters Date Type Department Care Team (Late st Contact Info) Description 05/23/2024 9:30 AM EST Infusion Hematology Oncology at [address] [address] 05/30/2024 9:00 AM EST Infusion Hematology Oncology at [address] [address] 06/05/2024 9:15 AM EST Laboratory Appointment Lab at [facility] Hematology Oncology [address] [place] [address] 06/05/2024 10:30 AM EST Office Visit Hematology [place] [address] Albania Chahal MD [facility] HEMATOLOGY[place] [address] 06/05/2024 1:00 PM EST Appointment Hematology and Oncology at [place] [phone] 06/26/2024 9:15 AM EST Laboratory Appointment Lab at [facility] Hematology Oncology [address] [place] [address] 06/26/2024 10:30 AM EST Office Visit Hematology and Oncology at [address] [place]ia Chahal MD [facility] HEMATOLOGY[place] [address] 06/26/2024 12:00 PM EST Appointment Hematology [place] [address] 07/17/2024 9:30 AM EST Laboratory Appointment Lab at [facility] [place] [address] 07/17/2024 10:30 AM EST Office Visit Hematology and Oncology at [place] [phone] Albania Chahal MD [facility] HEMATOLOGY[place] [address] 07/17/2024 12:00 PM EST Appointment Hematology and Oncology at [place] [address] documented as of this encounter Visit Diagnoses Not on filedocumented in this encounter Care Teams Dimethylaniline Sulfator Operator Relationship Specialty Start Date End Date America Caro MD [address] [place] [address] PCP - General Family Medicine 03/31/24 documented as of this encounter
--- OUTSIDE RECORDS SUMMARY | 2024-05-23 01:24 | XMS_ITS | Encounter Summary ---
[place] [address] Care Team Providers Care Scooter Mechanic Name Role Phone Venancio Caro MD Primary Care Provider [phone] Reason for Referral * Diagnostic Test (Routine) - Closed Specialty Diagnoses / Procedures Referred By Contac t Referred To Contact Cardiology Diagnoses Pericardial effusion Procedures Mobile Echo Venancio Caro MD [address] [place] [address] [facility] [place] [address] Referral ID Status Reason Start Date Expiration Date V isits Requested Visits Authorized [id number] Closed Specialty Service Requested 04/02/2024 04/02/2025 1 1 Reason for Visit * Diagnostic Test (Routine) - Closed Specialty Diagnoses / Procedures Referred By Contac t Referred To Contact Cardiology Diagnoses Pericardial effusion Procedures Mobile Echo Venancio Caro MD [address] [place] [address] [facility] [place] [address] Referral ID Status Reason Start Date Expiration Date V isits Requested Visits Authorized [id number] Closed Specialty Service Requested 04/02/2024 04/02/2025 1 1 Encounter Details Date Type Department Care Team (Latest Contact Info) Description 04/02/2024 8:53 AM EDT - 04/02/2024 11:59 PM EDT Hospital Encounter [place] [address] Venancio Caro MD [address] [place] [address] Pericardial effusion Discharge Disposition: Home Social History Tobacco Use [...] Capsule take 1 capsule po qd. 03/28/2018 documented as of this encounter Plan of Treatment Upcoming Encounters Date Type Department Care Team (Late st Contact Info) Description 05/23/2024 9:30 AM EST Infusion Hematology Oncology at [address] [address] 05/30/2024 9:00 AM EST Infusion Hematology Oncology at [address] [address] 06/05/2024 9:15 AM EST Laboratory Appointment Lab at [facility] Hematology Oncology [address] [place] [address] 06/05/2024 10:30 AM EST Office Visit Hematology [place] [address] Albania Chahal MD [facility] HEMATOLOGY[place] [address] 06/05/2024 1:00 PM EST Appointment Hematology [place] [address] 06/26/2024 9:15 AM EST Laboratory Appointment Lab at [facility] Hematology Oncology [address] [place] [address] 06/26/2024 10:30 AM EST Office Visit Hematology [place] [phone] Albania Chahal MD [facility] HEMATOLOGY/[place] [address] 06/26/2024 12:00 PM EST Appointment Hematology [place] [address] 07/17/2024 9:30 AM EST Laboratory Appointment Lab at [facility] Hematology [address] [address] 07/17/2024 10:30 AM EST Office Visit Hematology [place] [phone] Albania Chahal MD [facility] HEMATOLOGY/[place] [address] 07/17/2024 12:00 PM EST Appointment Hematology [place] [phone] documented as of this encounter Procedures Procedure Name Priority Date/Time Associated Diagnosis Comments ECHO COMPLETE Routine 04/02/2024 9:55 AM EDT Pericardial effusion documented in this encounter Results * ECHO COMPLETE (04/02/2024 9:55 AM EDT) EF 60 [facility] Anatomical Region Laterality Modality Other 04/02/2024 7:48 AM EDT Narrative 04/02/2024 10:17 AM EDT 1 [place] [address] ? Echocardiogram Report Name: HENRY IRVIN ?Study Date: 04/02/2024 07:48 AMBP: 121/69 mmHg : 1955 ? Height: 160 cm ? Account: [id number] Age: 68 yrs ? Weight: 63 kg Gender: Male ?BSA: 1.7 m2 Ordering Physician: VENANCIO CARO Referring Physician: VENANCIO CARO Performed By: JOSEPH Reason For Study: Pericardial Effusion Exam Location: [facility]. Interpretation Summary -There is a moderate pericardial [...] disease. -No comparison study is available. Procedure Complete-[id number]. Satisfactory quality. Left Ventricle Left ventricle is [...] Note Sabino Ortiz MD - 04/02/2024 1 [place] [address] Echocardiogram Report Name: HENRY IRVIN Study Date:04/02/2024 07:48 AMBP: 121/69 mmHg : 1955 Height: 160 cm Account: [id number] Age: 68 yrs Weight: 63 kg Gender: Male BSA: 1.7 m2 Ordering Physician: VENANCIO CARO Referring Physician: VENANCIO CARO Performed By: JOSEPH Reason For Study: Pericardial Effusion Exam Location: [facility]. Interpretation Summary -There is a moderate pericardial [...] disease. -No comparison study is available. Procedure Complete-40729. Satisfactory quality. Left Ventricle Left ventricle is [...] max robel: 225.4 cm/sec RVSP(TR): 28.3 mmHg Venancio Caro MD ECHO ORDERABLES documented in this encounter Visit Diagnoses Diagnosis Pericardial effusion Unspecified disease of pericardium documented in this encounter Care Teams Scooter Mechanic Relationship Specialty Start Date End Date Venancio Caro MD [address] [place] [address] PCP - General Family Medicine 03/31/24 documented as of this encounter
--- OUTSIDE RECORDS SUMMARY | 2024-05-23 01:24 | XMS_ITS | Encounter Summary ---
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 Lawrence Cruz MD [address] [place] [address] [place] [address] [facility] [address] [place] [phone] Referral ID Status Reason Start Date Expiration Date V isits Requested Visits Authorized [id number] Closed Consult, Test & Treat PCP Updated and/or Approved 03/31/2024 03/31/2025 6 6 Encounter Details Date Type Department Care Team (Late st Contact Info) Description 03/31/2024 Transcribe Orders eDH Incoming Referrals [phone] Lawrence Cruz MD [address] [place] [address] [place] [address] Mass of mediastinum Social History Tobacco Use Types Packs/Day Years [...] 9:30 AM EST Infusion Hematology Oncology at [address] [address] 05/30/2024 9:00 AM EST Infusion Hematology Oncology at [address] [address] 06/05/2024 9:15 AM EST Laboratory Appointment Lab at [facility] Hematology Oncology [address] [place] [address] 06/05/2024 10:30 AM EST Office Visit Hematology [place] [phone] Albania Chahal MD [facility] HEMATOLOGY[place] [address] 06/05/2024 1:00 PM EST Appointment Hematology [place] [address] 06/26/2024 9:15 AM EST Laboratory Appointment Lab at [facility] Hematology Oncology [address] [place] [address] 06/26/2024 10:30 AM EST Office Visit Hematology [place] [address] Albania Chahal MD [facility] HEMATOLOGY[place] [address] 06/26/2024 12:00 PM EST Appointment Hematology [place] [address] 07/17/2024 9:30 AM EST Laboratory Appointment Lab at [facility] Hematology Oncology [address] [place] [address] 07/17/2024 10:30 AM EST Office Visit Hematology [place] [address] Albania Chahal MD [facility] HEMATOLOGY[place] [address] 07/17/2024 12:00 PM EST Appointment Hematology [place] [address] Scheduled Referrals Name Type Priority Associated Diagnoses Orde r Schedule Referral to Hematology and Oncology Outpatient Referral Urgent Mass of mediastinum Ordered: 03/31/2024 documented as of this encounter Visit Diagnoses Diagnosis Mass of mediastinum Swelling, mass, or lump in chest documented in this encounter Care Teams Greenhouse Superintendent Relationship Specialty Start Date End Date America Caro MD [address] [place] [address] PCP - General Family Medicine 03/31/24 documented as of this encounter
--- OUTSIDE RECORDS SUMMARY | 2024-05-23 01:24 | XMS_ITS | Encounter Summary ---
Author Organization Formerly [facility] [place] [address] Care Team Providers Care Sports Statistician Name Role Phone Unavailable Primary Care Provider Unavailabl e Encounter Details Date Type Department Care Team (Late st Contact Info) Description 03/28/2024 Ancillary Procedure Radiology Library at [facility] [place] [address] America Caro MD [address] [place] [address] Social History Tobacco Use Types Packs/Day Years [...] 9:30 AM EST Infusion Hematology Oncology at [address] [address] 05/30/2024 9:00 AM EST Infusion Hematology Oncology at [address] [address] 06/05/2024 9:15 AM EST Laboratory Appointment Lab at [facility] Hematology Oncology [address] [place] [address] 06/05/2024 10:30 AM EST Office Visit Hematology [place] [address] Albania Chahal MD [facility] [place] [address] 06/05/2024 1:00 PM EST Appointment Hematology [place] [address] 06/26/2024 9:15 AM EST Laboratory Appointment Lab at [address] [address] 06/26/2024 10:30 AM EST Office Visit Hematology [place] [address] Albania Chahal MD [facility] HEMATOLOGY/[place] [address] 06/26/2024 12:00 PM EST Appointment Hematology [place] [address] 07/17/2024 9:30 AM EST Laboratory Appointment Lab at [address] [address] 07/17/2024 10:30 AM EST Office Visit Hematology [place] [address] Albania Chahal MD [facility] [address] [place] [address] 07/17/2024 12:00 PM EST Appointment Hematology [place] [address] documented as of this encounter Procedures Procedure Name Priority Date/Time Associated Diagnosis Comments FILM LIBRARY STORAGE ONLY CT CHEST Routine 03/28/2024 12:00 AM EDT documented in this encounter Results * Film Library- Storage Only CT Chest (03/28/2024 12:00 AM EDT) Narrative [facility] - 04/02/2024 10:44 AM EDT This exam is auto-finalizing. It's purpose is for storage only. America Caro MD IM FILM LIBRARY ORD ERABLES Performing Organization Address City/State/[facility] Co de Phone Number [place], [place] documented in this encounter Visit Diagnoses Not on filedocumented in this encounter
--- OUTSIDE RECORDS SUMMARY | 2024-05-23 01:24 | XMS_ITS | Continuity of Care Document ---
Author Name Christa Reddy Address [address] [address] Organization Unknown Address [address] [address] Medications No known medications Problems No known problems
[2024-05-23 08:36] LABS: Abs Immature Grans 0.06 10^3/uL (0.0-0.06); Absolute Basophil Count 0.03 10^3/uL (0.0-0.2); Absolute Eosinophil Count 0.08 10^3/uL (0.0-0.7); Absolute Lymphocyte Count 0.82 10^3/uL (1.2-3.4); Absolute Monocyte Count 0.41 10^3/uL (0.1-0.8); Absolute Neutrophil Count 4.75 10^3/uL (1.2-6.7); Basophils % 0.5 %; Eosinophils % 1.3 %; HCT 35.3 % (40.0-50.0); HGB 11.3 g/dL (13.5-17.5); Lymphocytes % 13.3 %; MCH 25.3 pg (27.0-33.0); MCV 79 fL (80-95); MPV 8.5 fL (8.0-11.0); Monocytes % 6.7 %; Neutrophils % 77.2 %; Platelet Count 449 10^3/uL (130-400); RBC 4.46 10^6/uL (4.36-5.78); RDW 15.9 % (11.8-14.1); RDW-SD 45.3 fL; WBC 6.15 10^3/uL (4.4-10.8)
[2024-05-23 08:53] LABS: ALT 73 U/L (16-63); AST 35 U/L (15-37); Albumin 2.7 g/dL (3.4-5.0); Alkaline Phosphatase 305 U/L (46-116); Anion Gap 7.5 mmol/L (3-11); BUN 25 mg/dL (7-18); Bilirubin, Total 0.54 mg/dL (0.2-1.0); CO2 30.5 mmol/L (21.0-32.0); Calcium 9.5 mg/dL (8.5-10.1); Chloride 100 mmol/L (98-107); Estimated GFR 80.97 (mL/min/1.73m2); Glucose 117 mg/dL (74-106); LDH 191 U/L (85-227); Potassium 3.7 mmol/L (3.5-5.1); Sodium 138 mmol/L (136-145)
== END 2024-05-23 01:06 | disposition home or self-care (01) ==
PROVIDERS: PCP Family Medicine; Visit Provider Internal Medicine
DX: C34.92 Malignant neoplasm of unspecified part of left bronchus or lung (principal)
CPT/HCPCS: 36415; 80053; 83615; 85025

== ENCOUNTER 2024-05-28 11:23 | Outpatient (CLI) | payer MEDICARE, BC, SELFPAY ==
[2024-05-28 10:15] LABS: Abs Immature Grans 0.03 10^3/uL (0.0-0.06); Absolute Basophil Count 0.04 10^3/uL (0.0-0.2); Absolute Eosinophil Count 0.07 10^3/uL (0.0-0.7); Absolute Monocyte Count 0.43 10^3/uL (0.1-0.8); Absolute Neutrophil Count 2.29 10^3/uL (1.2-6.7); Eosinophils % 1.8 %; HCT 33.9 % (40.0-50.0); HGB 10.7 g/dL (13.5-17.5); Immature Grans % 0.8 %; Lymphocytes % 25.9 %; MCH 25.4 pg (27.0-33.0); MCHC 31.6 % (32.0-36.0); MCV 81 fL (80-95); MPV 8.5 fL (8.0-11.0); Monocytes % 11.1 %; Neutrophils % 59.4 %; Platelet Count 512 10^3/uL (130-400); RBC 4.21 10^6/uL (4.36-5.78); RDW 16.3 % (11.8-14.1); RDW-SD 46.7 fL; WBC 3.86 10^3/uL (4.4-10.8)
[2024-05-28 10:33] LABS: ALT 48 U/L (16-63); AST 28 U/L (15-37); Albumin 2.6 g/dL (3.4-5.0); Alkaline Phosphatase 262 U/L (46-116); Anion Gap 8.6 mmol/L (3-11); BUN 21 mg/dL (7-18); Bilirubin, Total 0.26 mg/dL (0.2-1.0); CO2 29.4 mmol/L (21.0-32.0); CREATININE 0.9 mg/dL (0.70-1.30); Calcium 9.2 mg/dL (8.5-10.1); Chloride 104 mmol/L (98-107); Estimated GFR 91.88 (mL/min/1.73m2); Glucose 86 mg/dL (74-106); LDH 144 U/L (85-227); Potassium 3.7 mmol/L (3.5-5.1); Sodium 142 mmol/L (136-145); Total Protein 7.6 g/dL (6.4-8.2)
--- OUTSIDE RECORDS SUMMARY | 2024-05-28 11:30 | XMS_ITS ---
Author Organization 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 [place] [place], [facility] Every 4 Weeks* Plan Start Date:06/05/2024 Plan [...] lateralityMedication management Treatment Medications Current Day (Day 1 5, Cycle 1 - Planned for 05/30/2024) Next Day (Day 1, Cycle 2 - Planned for 06/05/2024) CARBOplatin (Paraplatin) in 150 mL infusionPACLitaxeL albumin-bound (Abraxane)pembrolizumab (Keytruda) in sodium chloride 0.9% 100 mL infusionpembrolizumab (Keytruda) Recon Soln PACLitaxeL albumin-bound (Abraxane) injection 164 mg CARBOplatin (Paraplatin) 594 mg in dextrose 5% 309.4 mL infusionPACLitaxeL albumin-bound (Abraxane) injection 164 mgpembrolizumab (Keytruda) 200 mg in sodium chloride 0.9% 108 mL infusion Past Plans No past plan information found. Radiation Treatments * No radiation treatments are documented for this patient in [facility]. Treatments may have been administered in another system.
--- OUTSIDE RECORDS SUMMARY | 2024-05-28 11:31 | XMS_ITS | Encounter Summary ---
Author Organization [facility] [place] [address] Care Team Providers Care Obstetrics Teacher Name Role Phone America Caro MD Primary Care Provider Encounter Details Date Type Department Care Team (Late st Contact Info) Description 05/26/2024 Telephone Hematology [place] [address] Tia Becerra, RN Social History Tobacco Use Types Packs/Day Years Used Date Smoking Tobacco: Former Pipe Passive Smoke Exposure: Past Smokeless Tobacco: Never Comments:Smoke pipe for 10 y ears since 13 years old, Does still smoke pot but is slowing down. Passive Exposure Comments:Second hand smoke since 4737-4391 Alcohol Use Standard Drinks/Week Comments Yes 14 (1 standard drink = 0.6 oz pure alcohol) hardly any for the last month B1300 Health Literacy Answer Date Recor ded How often do you need to hav e someone help you when you read instructions, pamphlets, or other written material from your doctor or pharmacy? Never 05/04/2024 [facility] Utilities Answer Date Recorded In [...] any time in the past 12 m [facility], were you homeless or living in a senior care (including now)? No 05/04/2024 Sex and Gender Information Value Date Recorded Sex Assigned at Not on file Gender Identity Not on file Sexual Orientation Not on file documented as of this encounter Miscellaneous Notes * Telephone Encounter - Tia Becerra RN - 05/26/2024 7:27 AM EST Images from the original note were not included. Follow-up: Call pt 05/26 to assess rash & effectiveness of kenalog cream Request from provider: My pt is having a bilateral rash under the armpits (photo in the chart). I am holding 2nd infusion today, and prescribe a topical steroid cream. This is not itchy or painful, he does not have SOB. I would like to please ask you to follow-up on him this Sunday. If the rash is still present, it would be nice to have him to upload a photo. I am reaching out to the derm, to have him see them, in case this is getting worse. My main worrisome is that this rash becomes severe, and he needs p.o./IV steroid treatment, thanks. Oncology Diagnosis: Squamous cell ca of lung Current Treatment: S/P cycle # 1 carbo/abraxane/pembro 05/15- Day 8 held today d/t rash T/C to patient: Call place to pt to assess rash. States it is overall looking better. Over the weekend it has spread a little bit onto forearms & upper thighs but overall noticeably faded. No blisters or open areas & is not painful at all. No rash on palms of hands or soles of feet & denies any sores in his mouth. Has some mild itching but it is tolerable. Has not needed to take any benadryl. Using kenalog cream to affected areas as ordered which has definitely helped. He has not heard anything from dermatology about an appt. He is scheduled for infusion in [facility] on 05/29 & is asking if he will get chemo that day as scheduled. Advised I would [facility]. No further intervention at this time. OK to proceed with infusion in [facility] on 05/29 & then RTC 06/05. Call placed to pt with plan. Let him know Dr. Milian has been updated & there is no further intervention needed at this time. Plan is to proceed with infusion 05/29 in [facility]. Pt to then RTC 06/[address] Milian. Instructed to continue to monitor rash & to call back to clinic if rash does notcontinue to improve or worsens. Pt verbalized understanding and agreement and knows to call clinic with any concerns and/or questions. documented in this encounter Plan of Treatment Upcoming Encounters Date Type Department Care Team (Late st Contact Info) Description 05/30/2024 9:00 AM EST Infusion Hematology Oncology at [address] [address] 06/05/2024 9:15 AM EST Laboratory Appointment Lab at [facility] Hematology Oncology [address] [place] [phone] 06/05/2024 10:30 AM EST Office Visit Hematology [place] [address] Albania Chahal MD [facility] HEMATOLOGY[place] [address] 06/05/2024 1:00 PM EST Hospital Encounter Hematology [place] [phone] 06/05/2024 2:00 PM EST Clinical Support Hematology and Oncology at [place] [phone] Aniya Saab, [place] [facility] [place] [address] 06/26/2024 9:15 AM EST Laboratory Appointment Lab at [facility] Hematology Oncology [address] [place] [phone] 06/26/2024 10:30 AM EST Office Visit Hematology [place] [phone] Albania Chahal MD [facility] [place]EMATOLOGY/[place] [address] 06/26/2024 12:00 PM EST Appointment Hematology [place] [phone] 07/17/2024 9:30 AM EST Laboratory Appointment Lab at [facility] Hematology Oncology [address] [place] [phone] 07/17/2024 10:30 AM EST Office Visit Hematology [place] [phone] Albania Chahal MD [facility] [place]EMATOLOGY[place] [address] 07/17/2024 12:00 PM EST Appointment Hematology [place] [phone] documented as of this encounter Visit Diagnoses Not on filedocumented in this encounter Care Teams Obstetrics Teacher Relationship Specialty Start Date End Date America Caro MD [address] [place] [address] PCP - General Family Medicine 03/31/24 documented as of this encounter
--- OUTSIDE RECORDS SUMMARY | 2024-05-28 11:31 | XMS_ITS | Encounter Summary ---
Author Organization [facility] Address [facility] [place] [address] Care Team Providers Care Roll Examiner Name Role Phone America Caro MD Primary Care Provider [phone] Reason for Referral * Consultation (Urgent) - Authorized Specialty Diagnoses / Procedures Referred By Contac t Referred To Contact Dermatology Diagnoses Skin rash Albania Chahal MD [facility] [address] HEMATOLOGY/[place] [address] [facility] Dermatology [address] [place] [address] Referral ID Status Reason Start Date Expiration Date Visits Requested Visits Authorized [id number] Authorized Consult, Test & Treat 05/23/2024 05/23/2025 1 1 Encounter Details Date Type Department Care Team (Late st Contact Info) Description 05/23/2024 Orders Only Hematology [place] [address] Albania Chahal MD [facility] DR HEMATOLOGY/ONCOLOGY [place], [place] [phone] Skin rash Social History Tobacco Use Types Packs/Day Years Used Date Smoking Tobacco: Former Pipe Passive Smoke Exposure: Past Smokeless Tobacco: Never Comments:Smoke pipe for 10 y ears since 13 years old, Does still smoke pot but is slowing down. Passive Exposure Comments:Second hand smoke since 6433-2900 Alcohol Use Standard Drinks/Week Comments Yes 14 (1 standard drink = 0.6 oz pure alcohol) hardly any for the last month B1300 Health Literacy Answer Date Recor ded How often do you need to hav e someone help you when you read instructions, pamphlets, or other written material from your doctor or pharmacy? Never 05/04/2024 [facility] Utilities Answer Date Recorded In [...] Progress Notes * Albania Chahal MD - 05/23/2024 9:58 AM EST Mr. Javier presented today to [facility] to have his C1D8 of Abraxane infusion. He was noted with acute onset of rash located bilaterally in his armpits. This is not itchy, and it seems like there are not other parts affected. He denies worsening of shortness of breath. The etiology of this rash remains unclear, but the appearance suggests a drug reaction eruption. I am holding his treatment today, and remain expectant about the evolution of the rash (photos in Media). I prescribed a medium potency steroid cream and sent a referral for derma at [facility]. I am also directly reaching out to the derm colleagues from the [facility] clinic to have their insights. We advised him that if thisis getting worse (new sites of rash with worsening of the skin lesions), and/or his SOB is progressively worse, he might need to the ED for oral/IV treatment with steroids. Albania Milian M.D. Medical Oncology Pager # [phone] 05/23/24, 10:21 [place] [address] documented in this encounter Plan of Treatment Upcoming Encounters Date Type Department Care Team (Late st Contact Info) Description 05/30/2024 9:00 AM EST Infusion Hematology Oncology at [address] [address] 06/05/2024 9:15 AM EST Laboratory Appointment Lab at [facility] Hematology Oncology [address] [place] [phone] 06/05/2024 10:30 AM EST Office Visit Hematology [place] [address] Albania Chahal MD [facility] HEMATOLOGY[place] [address] 06/05/2024 1:00 PM EST Hospital Encounter Hematology [place] [address] 06/05/2024 2:00 PM EST Clinical Support Hematology [place] [address] Aniya Saab, [place] [facility] [place] [address] 06/26/2024 9:15 AM EST Laboratory Appointment Lab at [facility] Hematology Oncology [address] [place] [phone] 06/26/2024 10:30 AM EST Office Visit Hematology and Oncology at [place] [phone] Albania Chahal MD [facility] HEMATOLOGY/[place] [address] 06/26/2024 12:00 PM EST Appointment Hematology [place] [address] 07/17/2024 9:30 AM EST Laboratory Appointment Lab at [facility] Hematology Oncology [address] [place] [phone] 07/17/2024 10:30 AM EST Office Visit Hematology [place] [address] Albania Chahal MD [facility] HEMATOLOGY[place] [address] 07/17/2024 12:00 PM EST Appointment Hematology [place] [address] Scheduled Referrals Name Type Priority Associated Diagnoses Order Schedule Referral to Dermatology Outpatient Referral Urgent Skin rash Ordered: 05/23/2024 documented as of this encounter Visit Diagnoses Diagnosis Skin rash Rash and other nonspecific skin eruption documented in this encounter Care Teams Roll Examiner Relationship Specialty Start Date End Date America Caro MD [address] [place] [address] PCP - General Family Medicine 03/31/24 documented as of this encounter
--- OUTSIDE RECORDS SUMMARY | 2024-05-28 11:31 | XMS_ITS | Encounter Summary ---
Author [facility] [place] [address] Care Team Providers Care Ethnoarchaeology Professor Name Role Phone America Caro MD Primary Care Provider [phone] Encounter Details Date Type Department Care Team (Late st Contact Info) Description 05/23/2024 Telephone Hematology [place] [address] Tia Becerra, RN Social History Tobacco Use Types Packs/Day Years Used Date Smoking Tobacco: Former Pipe Passive Smoke Exposure: Past Smokeless Tobacco: Never Comments:Smoke pipe for 10 y ears since 13 years old, Does still smoke pot but is slowing down. Passive Exposure Comments:Second hand smoke since 4964-9441 Alcohol Use Standard Drinks/Week Comments Yes 14 (1 standard drink = 0.6 oz pure alcohol) hardly any for the last month B1300 Health Literacy Answer Date Recor ded How often do you need to hav e someone help you when you read instructions, pamphlets, or other written material from your doctor or pharmacy? Never 05/04/2024 [facility] Utilities Answer Date Recorded In the [...] any time in the past 12 m [facility], were you homeless or living in a chcf (including now)? No 05/04/2024 Sex and Gender Information Value Date Recorded Sex Assigned at Not on file Gender Identity Not on file Sexual Orientation Not on file documented as of this encounter Miscellaneous Notes * Telephone Encounter - Tia Becerra RN - 05/23/2024 3:43 PM EST Message received from admin secretary stating pt was on the line reporting that his rash which he had discussed with provider earlier today was now itchy where it had not been itchy initially. Oncology Diagnosis: Squamous cell ca of lung Current Treatment: S/P cycle # 1 carbo/abraxane/pembro 05/15- Day 8 held today d/t rash T/C to patient: Spoke to pt who states that the rash doesn't look any worse than it did previously but it is now itchy which is a change from this morning. He has not yet picked up the kenalog cream from the pharmacy but plans to pick it up before the pharmacy closes today. States the rash is not painful & itching is currently manageable but he wants to make sure he knows what to do if itching worsens & to make sure Dr. Milian is aware. States rash is not painful, there do not appear to be any vesicles, blisters or open areas. He is worried that the kenalog cream won't be ready before the pharmacy closes for the evening & is asking what he can use. If needed he could apply hydrocortisone cream to affected areas 2-3 times/day until he gets the kenalog cream.Recommended benadryl 25 mg po per package instructions as needed for itching. Discussed drowsiness as side effect of benadryl & instructed to only take if he does not have to drive or use heavy machinery. Instructed to call back if rash continues to spread, does not improve, itching worsens, he develops open skin lesions or drainage, pain or fever. Reminded that there is a provider precast concrete ironworker over the weekend & explained how to reach precast concrete ironworker provider on off hours. Triage nurse to call pt next week to assess rash. Pt in agreement with plan and knows to call clinic with any concerns and/or questions. Updated Dr. Milian with above who is in agreement with plan. documented in this encounter Plan of Treatment Upcoming Encounters Date Type Department Care Team (Late st Contact Info) Description 05/30/2024 9:00 AM EST Infusion Hematology Oncology at [address] [address] 06/05/2024 9:15 AM EST Laboratory Appointment Lab at [facility] Hematology Oncology [address] [place] [phone] 06/05/2024 10:30 AM EST Office Visit Hematology [place] [phone] Albania Chahal MD [facility] HEMATOLOGY/[place] [address] 06/05/2024 1:00 PM EST Hospital Encounter Hematology [place] [phone] 06/05/2024 2:00 PM EST Clinical Support Hematology [place] [phone] [facility] [address] 06/26/2024 9:15 AM EST Laboratory Appointment Lab at [facility] Hematology Oncology [address] [place] [phone] 06/26/2024 10:30 AM EST Office Visit Hematology [place] [address] Albania Chahal MD [facility] HEMATOLOGY/[place] [address] 06/26/2024 12:00 PM EST Appointment Hematology [place] [address] 07/17/2024 9:30 AM EST Laboratory Appointment Lab at [facility] Hematology Oncology [address] [place] [phone] 07/17/2024 10:30 AM EST Office Visit Hematology [place] [address] Albania Chahal MD [facility] HEMATOLOGY/[place] [address] 07/17/2024 12:00 PM EST Appointment Hematology [place] [address] documented as of this encounter Visit Diagnoses Not on filedocumented in this encounter Care Teams Ethnoarchaeology Professor Relationship Specialty Start Date End Date America Caro MD [address] [place] [address] PCP - General Family Medicine 03/31/24 documented as of this encounter
--- OUTSIDE RECORDS SUMMARY | 2024-05-28 11:31 | XMS_ITS | Encounter Summary ---
Author Organization [facility] Address [facility] [place] [address] Care Team Providers Care Ware Finisher Name Role Phone America Caro MD Primary Care Provider [phone] Encounter Details Date Type Department Care Team (Late st Contact Info) Description 05/28/2024 Orders Only Hematology [place] [address] Albania Chahal MD [facility] DR HEMATOLOGY/[place] [address] Non-small cell lung cancer, unspecified laterality Social History Tobacco Use Types Packs/Day Years Used Date Smoking Tobacco: Former Pipe Passive Smoke Exposure: Past Smokeless Tobacco: Never Comments:Smoke pipe for 10 y ears since 13 years old, Does still smoke pot but is slowing down. Passive Exposure Comments:Second hand smoke since 8101-6870 Alcohol Use Standard Drinks/Week Comments Yes 14 (1 standard drink = 0.6 oz pure alcohol) hardly any for the last month B1300 Health Literacy Answer Date Recor ded How often do you need to hav e someone help you when you read instructions, pamphlets, or other written material from your doctor or pharmacy? Never 05/04/2024 [facility] Utilities Answer Date Recorded In [...] any time in the past 12 m [facility], were you homeless or living [...] 9:00 AM EST Infusion Hematology Oncology at [address] [phone] 06/05/2024 9:15 AM EST Laboratory Appointment Lab at [facility] Hematology Oncology [address] [place] [phone] 06/05/2024 10:30 AM EST Office Visit Hematology [place] [phone] Albania Chahal MD [facility] HEMATOLOGY[place] [address] 06/05/2024 1:00 PM EST Hospital Encounter Hematology [place] [address] 06/05/2024 2:00 PM EST Clinical Support Hematology [place] [address] Aniya Saab, [place] [facility] [place] [address] 06/26/2024 9:15 AM EST Laboratory Appointment Lab at [facility] Hematology Oncology [address] [place] [phone] 06/26/2024 10:30 AM EST Office Visit Hematology [place] [address] Albania Chahal MD [facility] HEMATOLOGY[place] [address] 06/26/2024 12:00 PM EST Appointment Hematology [place] [address] 07/17/2024 9:30 AM EST Laboratory Appointment Lab at [facility] Hematology Oncology [address] [place] [phone] 07/17/2024 10:30 AM EST Office Visit Hematology [place] [address] Albania Chahal MD [facility] HEMATOLOGY[place] [address] 07/17/2024 12:00 PM EST Appointment Hematology [place] [address] Scheduled Orders Name Type Priority Associated Diagnoses Orde r Schedule CBC (with Diff) Lab Routine Non-small cell lung cancer, unspecified laterality Expected: 05/28/2024, Expires: 11/27/2024 Comprehensive metabolic panel Non-fasting Lab Routine Non-small cell lung cancer, unspecified laterality Expected: 05/28/2024, Expires: 11/27/2024 documented as of this encounter Visit Diagnoses Diagnosis Non-small cell lung cancer, unspecified laterality documented in this encounter Care Teams Ware Finisher Relationship Specialty Start Date End Date America Caro MD [address] [place] [address] PCP - General Family Medicine 03/31/24 documented as of this encounter
--- OUTSIDE RECORDS SUMMARY | 2024-05-28 11:32 | XMS_ITS | Encounter Summary ---
Author Organization [facility] Address [facility] [place] [address] Care Team Providers Care Sorter Packer Name Role Phone America Caro MD Primary Care Provider [phone] Encounter Details Date Type Department Care Team (Late st Contact Info) Description 05/20/2024 Orders Only Hematology [place] [address] Albania Chahal MD [facility] DR HEMATOLOGY/[place] [address] Non-small cell cancer of left lung Social History Tobacco Use Types Packs/Day Years Used Date Smoking Tobacco: Former Pipe Passive Smoke Exposure: Past Smokeless Tobacco: Never Comments:Smoke pipe for 10 y ears since 13 years old, Does still smoke pot but is slowing down. Passive Exposure Comments:Second hand smoke since 3256-7169 Alcohol Use Standard Drinks/Week Comments Yes 14 (1 standard drink = 0.6 oz pure alcohol) hardly any for the last month B1300 Health Literacy Answer Date Recor ded How often do you need to hav e someone help you when you read instructions, pamphlets, or other written material from your doctor or pharmacy? Never 05/04/2024 [facility] Utilities Answer Date Recorded In the [...] in the past 12 m [facility], were you homeless or living in a long term (including now)? No 05/04/2024 Sex and Gender Information Value Date Recorded Sex Assigned at Not on file Gender Identity Not on file Sexual Orientation Not on file documented as of this encounter Progress Notes * Albania Chahal MD - 05/20/2024 9:40 AM EST I called Mr. Javier to let him know that I have added the additional stains suggested by the oncologist from [facility]. I have received the report and will be discussing in detailed during our next visit. documented in this encounter Plan of Treatment Upcoming Encounters Date Type Department Care Team (Late st Contact Info) Description 05/30/2024 9:00 AM EST Infusion Hematology Oncology at [address] [address] 06/05/2024 9:15 AM EST Laboratory Appointment Lab at [facility] Hematology Oncology [address] [place] [phone] 06/05/2024 10:30 AM EST Office Visit Hematology [place] [address] Albania Chahal MD [facility] HEMATOLOGY/[place] [address] 06/05/2024 1:00 PM EST Hospital Encounter Hematology and Oncology at [place] [phone] 06/05/2024 2:00 PM EST Clinical Support Hematology and Oncology at [place] [phone] [facility] [place] [address] 06/26/2024 9:15 AM EST Laboratory Appointment Lab at [facility] Hematology Oncology [address] [place] [phone] 06/26/2024 10:30 AM EST Office Visit Hematology and Oncology at [place] [phone] Albania Chahal MD [facility] HEMATOLOGY/[place] [address] 06/26/2024 12:00 PM EST Appointment Hematology [place] [address] 07/17/2024 9:30 AM EST Laboratory Appointment Lab at [facility] Hematology Oncology [address] [place] [phone] 07/17/2024 10:30 AM EST Office Visit Hematology [place] [phone] Albania Chahal MD [facility] [address] [place] [address] 07/17/2024 12:00 PM EST Appointment Hematology [place] [address] Scheduled Orders Name Type Priority Associated Diagnoses Orde r Schedule Anatomical Pathology Additional Testing Pathology/Cytol ogy Routine Non-small cell cancer of left lung Ordered: 05/20/2024 documented as of this encounter Visit Diagnoses Diagnosis Non-small cell cancer of left lung documented in this encounter Care Teams Sorter Packer Relationship Specialty Start Date End Date America Caro MD [address] [place] [address] PCP - General Family Medicine 03/31/24 documented as of this encounter
--- OUTSIDE RECORDS SUMMARY | 2024-05-28 11:33 | XMS_ITS | Encounter Summary ---
Author Organization [facility] Address [facility] [place] [address] Care Team Providers Care Fourdrinier Machine Operator Name Role Phone America Caro MD Primary Care Provider [phone] Encounter Details Date Type Department Care Team (Latest Contact Info) Description 05/16/2024 Travel Social History Tobacco Use Types Packs/Day Years Used Date Smoking Tobacco: Former Pipe Passive Smoke Exposure: Past Smokeless Tobacco: Never Comments:Smoke pipe for 10 y ears since 13 years old, Does still smoke pot but is slowing down. Passive Exposure Comments:Second hand smoke since 2787-2706 Alcohol Use Standard Drinks/Week Comments Yes 14 (1 standard drink = 0.6 oz pure alcohol) hardly any for the last month B1300 Health Literacy Answer Date Recor ded How often do you need to hav e someone help you when you read instructions, pamphlets, or other written material from your doctor or pharmacy? Never 05/04/[address] [facility] Utilities Answer Date Recorded In the past 12 months has [employer], gas, oil, or water [employer] threatened to shut off services in your [...] any time in the past 12 m [facility], were you homeless or living in a half-way (including now)? No 05/04/2024 Sex and Gender Information Value Date Recorded Sex Assigned at Not on file Gender Identity Not on file Sexual Orientation Not on file documented as of this encounter Plan of Treatment Upcoming Encounters Date Type Department Care Team (Late st Contact Info) Description 05/30/2024 9:00 AM EST Infusion Hematology Oncology at [address] [address] 06/05/2024 9:15 AM EST Laboratory Appointment Lab at [facility] Hematology Oncology [address] [place] [phone] 06/05/2024 10:30 AM EST Office Visit Hematology [place] [phone] Albania Chahal MD [facility] HEMATOLOGY[place] [address] 06/05/2024 1:00 PM EST Hospital Encounter Hematology [place] [phone] 06/05/2024 2:00 PM EST Clinical Support Hematology [place] [phone] [facility] [place] [address] 06/26/2024 9:15 AM EST Laboratory Appointment Lab at [facility] Hematology Oncology [address] [place] [phone] 06/26/2024 10:30 AM EST Office Visit Hematology [place] [address] Albania Chahal MD [facility] HEMATOLOGY/[place] [address] 06/26/2024 12:00 PM EST Appointment Hematology [place] [address] 07/17/2024 9:30 AM EST Laboratory Appointment Lab at [facility] Hematology Oncology [address] [place] [phone] 07/17/2024 10:30 AM EST Office Visit Hematology [place] [address] Albania Chahal MD [facility] HEMATOLOGY[place] [address] 07/17/2024 12:00 PM EST Appointment Hematology [place] [address] documented as of this encounter Visit Diagnoses Not on filedocumented in this encounter Care Teams Fourdrinier Machine Operator Relationship Specialty Start Date End Date America Caro MD [address] [place] [address] PCP - General Family Medicine 03/31/24 documented as of this encounter
--- OUTSIDE RECORDS SUMMARY | 2024-05-28 11:34 | XMS_ITS | Encounter Summary ---
Author Organization [facility] Address [facility] [place] [address] Care Team Providers Care Suture Gauger Name Role Phone America Caro MD Primary Care Provider [phone] Encounter Details Date Type Department Care Team (Latest Contact Info) Description 05/15/2024 Travel Social History Tobacco Use Types Packs/Day Years Used Date Smoking Tobacco: Former Pipe Passive Smoke Exposure: Past Smokeless Tobacco: Never Comments:Smoke pipe for 10 y ears since 13 years old, Does still smoke pot but is slowing down. Passive Exposure Comments:Second hand smoke since 7815-5319 Alcohol Use Standard Drinks/Week Comments Yes 14 (1 standard drink = 0.6 oz pure alcohol) hardly any for the last month B1300 Health Literacy Answer Date Recor ded How often do you need to hav e someone help you when you read instructions, pamphlets, or other written material from your doctor or pharmacy? Never 05/04/2024 [facility] Utilities Answer Date Recorded In the past 12 months has [employer], gas, oil, or water [employer] threatened to shut off services in your [...] any time in the past 12 m [facility], were you homeless or living in [...] AM EST Infusion Hematology Oncology at [address] [address] 06/05/2024 9:15 AM EST Laboratory Appointment Lab at [facility] Hematology Oncology [address] [place] [phone] 06/05/2024 10:30 AM EST Office Visit Hematology [place] [phone] Albania Chahal MD [facility] [place] [address] 06/05/2024 1:00 PM EST Hospital Encounter Hematology [place] [phone] 06/05/2024 2:00 PM EST Clinical Support Hematology [place] [phone] [facility] [place] [address] 06/26/2024 9:15 AM EST Laboratory Appointment Lab at [facility] Hematology Oncology [address] [place] [phone] 06/26/2024 10:30 AM EST Office Visit Hematology [place] [address] Albania Chahal MD [facility] [place] [address] 06/26/2024 12:00 PM EST Appointment Hematology [place] [address] 07/17/2024 9:30 AM EST Laboratory Appointment Lab at [facility] Hematology Oncology [address] [place] [phone] 07/17/2024 10:30 AM EST Office Visit Hematology [place] [address] Albania Chahal MD [facility] HEMATOLOGY[place] [address] 07/17/2024 12:00 PM EST Appointment Hematology [place] [address] documented as of this encounter Visit Diagnoses Not on filedocumented in this encounter Care Teams Suture Gauger Relationship Specialty Start Date End Date America Caro MD [address] [place] [address] PCP - General Family Medicine 03/31/24 documented as of this encounter
--- OUTSIDE RECORDS SUMMARY | 2024-05-28 11:34 | XMS_ITS | Encounter Summary ---
[place] [address] Care Team Providers Care Senior Compliance Analyst Name Role Phone America Caro MD Primary Care Provider [phone] Encounter Details Date Type Department Care Team (Latest Contact Info) Description 05/15/2024 10:00 AM EDT Clinical Support Hematology [place] [phone] Bart Saunders, [facility] Non-small cell lung cancer, unspecified laterality Social History Tobacco Use Types Packs/Day Years Used Date Smoking Tobacco: Former Pipe Passive Smoke Exposure: Past Smokeless Tobacco: Never Comments:Smoke pipe for 10 y ears since 13 years old, Does still smoke pot but is slowing down. Passive Exposure Comments:Second hand smoke since 8796-5163 Alcohol Use Standard Drinks/Week Comments Yes 14 [...] any time in the past 12 m [facility], were you homeless or living in a residential (including now)? No 05/04/2024 Sex and Gender Information Value Date Recorded Sex Assigned at Not on file Gender Identity Not on file Sexual Orientation Not on file documented as of this encounter Progress Notes * Bart Saunders, [facility] - 05/15/2024 10:00 AM EDT PATIENT ID: [...] 9:00 AM EST Infusion Hematology Oncology at [address] [address] 06/05/2024 9:15 AM EST Laboratory Appointment Lab at [facility] Hematology Oncology [address] [place] [phone] 06/05/2024 10:30 AM EST Office Visit Hematology [place] [phone] Albania Chahal MD [facility] HEMATOLOGY[place] [address] 06/05/2024 1:00 PM EST Hospital Encounter Hematology [place] [phone] 06/05/2024 2:00 PM EST Clinical Support Hematology [place] [phone] Aniya Saab, [facility] [place] [address] 06/26/2024 9:15 AM EST Laboratory Appointment Lab at [facility] Hematology Oncology [address] [place] [phone] 06/26/2024 10:30 AM EST Office Visit Hematology [place] [phone] Albania Chahal MD [facility] DR CARTWRIGHT[place] [address] 06/26/2024 12:00 PM EST Appointment Hematology [place] [phone] 07/17/2024 9:30 AM EST Laboratory Appointment Lab at [facility] Hematology Oncology [address] [place] [phone] 07/17/2024 10:30 AM EST Office Visit Hematology [place] [address] Albania Chahal MD [facility] DR [place]EMATOLOGY/[place] [address] 07/17/2024 12:00 PM EST Appointment Hematology [place] [address] documented as of this encounter Visit Diagnoses Diagnosis Non-small cell lung cancer, unspecified laterality documented in this encounter Care Teams Senior Compliance Analyst Relationship Specialty Start Date End Date America Caro MD [address] [place] [address] PCP - General Family Medicine 03/31/24 documented as of this encounter
--- OUTSIDE RECORDS SUMMARY | 2024-05-28 11:34 | XMS_ITS | Encounter Summary ---
Author Organization [facility] Address [facility] [place] [address] Care Team Providers Care Gauge And Weigh Machine Operator Name Role Phone America Caro MD Primary Care Provider [phone] Reason for Visit * Reason Comments Follow-up Encounter Details Date Type Department Care Team (Late st Contact Info) Description 05/15/2024 9:00 AM EDT Office Visit Hematology [place] [address] Albania Chahal MD [facility] HEMATOLOGY/[place] [address] Non-small cell cancer of right lung Social History Tobacco Use Types Packs/Day Years Used Date Smoking Tobacco: Former Pipe Passive Smoke Exposure: Past Smokeless Tobacco: Never Comments:Smoke pipe for 10 y ears since 13 years old, Does still smoke pot but is slowing down. Passive Exposure Comments:Second hand smoke since 2877-0832 Alcohol Use Standard Drinks/Week Comments Yes 14 [...] time in the past 12 m [facility], were you homeless or living in a mcfp (including now)? No 05/04/2024 Sex and Gender [...] SYSTEMS: As per HPI. A 12 point [id number]-jmfweiq was obtained. Symptoms as explained in the [...] . 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 Alcohol: He drank heavily for a long [...] Considering this information, we will proceed with citzrvpt-og-ravh with carboplatin, Abraxane, and pembrolizumab. Overall, Mr. [...] with infusions scheduled for Day 1 at [facility] and standalone infusions on Days [address] [facility]. He has anemia and upon treatment response, [...] treatment for pericarditis as directed by the book cleaner. [facility] I spent 30 minutes in the total care of this patient including review of records and imaging, lnki-ql-ajbn consultation and counseling, interpretation of studies, coordination of care and documentation. Albania Milian M.D. Thoracic Oncology Pager # [phone] 05/15/24, 9:26 AM [facility] documented in this encounter Plan of Treatment Upcoming Encounters Date Type Department Care Team (Late st Contact Info) Description 05/30/2024 9:00 AM EST Infusion Hematology Oncology at [address] [address] 06/05/2024 9:15 AM EST Laboratory Appointment Lab at [facility] Hematology Oncology [address] [place] [phone] 06/05/2024 10:30 AM EST Office Visit Hematology [place] [address] Albania Chahal MD [facility] HEMATOLOGY[place] [address] 06/05/2024 1:00 PM EST Hospital Encounter Hematology [place] [address] 06/05/2024 2:00 PM EST Clinical Support Hematology [place] [phone] Aniya Saab, [facility] [place] [address] 06/26/2024 9:15 AM EST Laboratory Appointment Lab at [facility] Hematology Oncology [address] [place] [phone] 06/26/2024 10:30 AM EST Office Visit Hematology [place] [address] Albania Chahal MD [facility] HEMATOLOGY[place] [address] 06/26/2024 12:00 PM EST Appointment Hematology [place] [address] 07/17/2024 9:30 AM EST Laboratory Appointment Lab at [facility] Hematology Oncology [address] [place] [phone] 07/17/2024 10:30 AM EST Office Visit Hematology [place] [address] Albania Chahal MD [facility] HEMATOLOGY/[place] [address] 07/17/2024 12:00 PM EST Appointment Hematology [place] [address] documented as of this encounter Visit Diagnoses Diagnosis Non-small cell cancer of right lung documented in this encounter Care Teams Gauge And Weigh Machine Operator Relationship Specialty Start Date End Date America Caro MD [address] [place] [address] PCP - General Family Medicine 03/31/24 documented as of this encounter
--- OUTSIDE RECORDS SUMMARY | 2024-05-28 11:34 | XMS_ITS | Encounter Summary ---
Author Organization [facility] [place] [address] Care Team Providers Care Ultrasound Tester Name Role Phone America Caro MD Primary Care Provider [phone] Encounter Details Date Type Department Care Team (Late st Contact Info) Description 05/15/2024 Notes Only Hematology [place] [phone] Fletcher Alvarado RN Social History Tobacco Use Types Packs/Day Years Used Date Smoking Tobacco: Former Pipe Passive Smoke Exposure: Past Smokeless Tobacco: Never Comments:Smoke pipe for 10 y ears since 13 years old, Does still smoke pot but is slowing down. Passive Exposure Comments:Second hand smoke since 0899-1462 Alcohol Use Standard Drinks/Week Comments Yes 14 (1 standard drink = 0.6 oz pure alcohol) hardly any for the last month B1300 Health Literacy Answer Date Recor ded How often do you need to hav e someone help you when you read instructions, pamphlets, or other written material from your doctor or pharmacy? Never 05/04/2024 [facility] Utilities Answer Date Recorded In [...] were you homeless or living in a correction (including now)? No 05/04/2024 Sex and Gender Information Value Date Recorded Sex Assigned at Not on file Gender Identity Not on file Sexual Orientation Not on file documented as of this encounter Progress Notes * Fletcher Alvarado RN - 05/15/2024 1:04 PM EDT Documentation of Informed Consent to Participate in Clinical Trial STUDY [id number]: Immune profiling for cancer immunotherapy response Patient was seen in Hematology-Oncology clinic on 05/15/24. Patient was offered the opportunity to participate in study [id number]. Study protocol reviewed with patient, including description [...] and consented for lab draws on study [id number]. Consent form was signed and dated by [...] 9:00 AM EST Infusion Hematology Oncology at [address] [address] 06/05/2024 9:15 AM EST Laboratory Appointment Lab at [facility] Hematology Oncology [address] [place] [phone] 06/05/2024 10:30 AM EST Office Visit Hematology [place] [phone] Albania Chahal MD [facility] HEMATOLOGY[place] [address] 06/05/2024 1:00 PM EST Hospital Encounter Hematology [place] [phone] 06/05/2024 2:00 PM EST Clinical Support Hematology [place] [phone] Aniya Saab, [facility] [place] [address] 06/26/2024 9:15 AM EST Laboratory Appointment Lab at [facility] Hematology Oncology [address] [place] [phone] 06/26/2024 10:30 AM EST Office Visit Hematology [place] [phone] Albania Chahal MD [facility] DR CARTWRIGHT/[place] [address] 06/26/2024 12:00 PM EST Appointment Hematology [place] [phone] 07/17/2024 9:30 AM EST Laboratory Appointment Lab at [facility] Hematology Oncology [address] [place] [phone] 07/17/2024 10:30 AM EST Office Visit Hematology [place] [address] Albania Chahal MD [facility] DR [place]EMATOLOGY/[place] [address] 07/17/2024 12:00 PM EST Appointment Hematology [place] [address] documented as of this encounter Visit Diagnoses Not on filedocumented in this encounter Care Teams Ultrasound Tester Relationship Specialty Start Date End Date America Caro MD [address] [place] [address] PCP - General Family Medicine 03/31/24 documented as of this encounter
--- OUTSIDE RECORDS SUMMARY | 2024-05-28 11:34 | XMS_ITS | Encounter Summary ---
[place] [address] Care Team Providers Care Director Of Market Intelligence Name Role Phone America Caro MD Primary Care Provider [phone] Encounter Details Date Type Department Care Team (Latest Contact Info) Description 05/15/2024 8:15 AM EDT Laboratory Appointment Lab at [facility] Hematology Oncology [address] [place] [phone] Non-small cell lung cancer, unspecified laterality; Medication management Social History Tobacco Use Types Packs/Day Years Used Date Smoking Tobacco: Former Pipe Passive Smoke Exposure: Past Smokeless Tobacco: Never Comments:Smoke pipe for 10 y ears since 13 years old, Does still smoke pot but is slowing down. Passive Exposure Comments:Second hand smoke since 6452-8079 Alcohol Use Standard Drinks/Week Comments Yes 14 (1 standard drink = 0.6 oz pure alcohol) hardly any for the last month B1300 Health Literacy Answer Date Recor ded How often do you need to hav e someone help you when you read instructions, pamphlets, or other written material from your doctor or pharmacy? Never 05/04/2024 [facility] Utilities Answer Date Recorded In the [...] AM EST Infusion Hematology Oncology at [address] [phone] 06/05/2024 9:15 AM EST Laboratory Appointment Lab at [facility] Hematology Oncology [address] [place] [phone] 06/05/2024 10:30 AM EST Office Visit Hematology [place] [address] Albania Chahal MD [facility] HEMATOLOGY/[place] [address] 06/05/2024 1:00 PM EST Hospital Encounter Hematology [place] [address] 06/05/2024 2:00 PM EST Clinical Support Hematology [place] [address] Aniya Saab, [place] [facility] [place] [address] 06/26/2024 9:15 AM EST Laboratory Appointment Lab at [facility] Hematology Oncology [address] [place] [phone] 06/26/2024 10:30 AM EST Office Visit Hematology [place] [address] Albania Chahal MD [facility] HEMATOLOGY/[place] [address] 06/26/2024 12:00 PM EST Appointment Hematology [place] [address] 07/17/2024 9:30 AM EST Laboratory Appointment Lab at [facility] Hematology Oncology [address] [place] [phone] 07/17/2024 10:30 AM EST Office Visit [place]ematology [place] [address] Albania Chahal MD [facility] HEMATOLOGY/[place] [address] 07/17/2024 12:00 PM EST Appointment [place]ematology [place] [address] Pending Results Name Type Priority Associated Diagnoses [...] - 9.50 x10(3)/mc L 05/15/2024 8:19 AM [facility] Red Blood Cell 4.73 4.58 - 5.54 x10(6)/mc L 05/15/2024 8:19 AM [facility] Hemoglobin 12.0(L) 13.7 - 16.5 g/dL 05/15/2024 8:19 AM [facility] Hematocrit 38.4(L) 40.5 - 48.5 % 05/15/2024 8:19 AM [facility] Mean Cell Volume 81.2(L) 82.9 - 93.1 fL 05/15/2024 8:19 AM [facility] Mean Cell Hemoglobin 25.4(L) 27.5 - 32.1 pg 05/15/2024 8:19 AM [facility] Mean Cell Hemoglobin Concentration 31.3(L) 32.0 - 35.7 g/dL 05/15/2024 8:19 AM [facility] Platelet 628(H) 145 - 357 x10(3)/mc L 05/15/2024 8:19 AM [facility] Mean Platelet Volume 8.5 7.6 - 12.9 fL 05/15/2024 8:19 AM [facility] RDW Standard Deviation 47.0(H) 36.0 - 45.0 fL 05/15/2024 8:19 AM [facility] RDW coefficient of variation 15.9(H) 11.4 - 13.8 % 05/15/2024 8:19 AM [facility] NRBC% auto 0.0 % 05/15/2024 8:19 AM [facility] NRBC Absolute <0.01 <0.01 x10(3)/mc L 05/15/2024 8:19 AM [facility] Neutrophil % 75.6 % 05/15/2024 8:19 AM [facility] Neutrophil Absolute (ANC) - Automated 5.46 1.70 - 6.10 x10(3)/mc L 05/15/2024 8:19 AM [facility] Lymph % 15.4 % 05/15/2024 8:19 AM [facility] Lymph Absolute 1.11 0.90 - 3.20 x10(3)/mc L 05/15/2024 8:19 AM [facility] Monocyte % 7.6 % 05/15/2024 8:19 AM [facility] Monocyte Absolute 0.55 0.30 - 0.90 x10(3)/mc L 05/15/2024 8:19 AM [facility] Eos % 0.7 % 05/15/2024 8:19 AM [facility] Eos Absolute 0.05 0.00 - 0.40 x10(3)/mc L 05/15/2024 8:19 AM [facility] Basophil % 0.3 % 05/15/2024 8:19 AM [facility] Baso Absolute <0.04 0.00 - 0.10 x10(3)/mc L 05/15/2024 8:19 AM [facility] Immature Gran % 0.4 % 8:19 AM EDT [facility] Immature Gran Absolute <0.04 0.00 - 0.04 x10(3)/mc L 05/15/2024 [facility] Blood VENOUS BLOOD SPECIMEN / Unknown Venipuncture / Unknown 05/15/2024 8:03 AM EDT 05/15/2024 8:03 AM EDT Albania Dutton MD HEMATOLOGY ORDER [facility] [place] [address] * (ABNORMAL) Comprehensive metabolic panel Non-fasting (05/15/2024 8:03 AM EDT) Glucose 84 65 - 199 mg/dL 05/15/2024 8:52 AM EDT [facility] Comment:Glucose Concentratio n >=200 mg/dL plus symptoms is consistent with Diabetes Mellitus. Blood Urea Nitrogen 17 10 - 20 mg/dL 05/15/2024 8:52 AM [facility] Creatinine 0.83 0.80 - 1.50 mg/dL 05/15/2024 8:52 AM [facility] Sodium 137 135 - 145 mMol/L 05/15/2024 8:52 AM [facility] Potassium 4.6 3.5 - 5.0 mMol/L 05/15/2024 8:52 AM [facility] Chloride 100 98 - 107 mMol/L 05/15/2024 8:52 AM [facility] Carbon Dioxide 30 22 - 31 mMol/L 05/15/2024 8:[facility] Anion Gap 7 5 - 15 mMol/L 05/15/2024 8:52 AM [facility] Calcium 9.9 8.5 - 10.5 mg/dL 05/15/2024 8:[facility] Protein, Total 7.9 6.1 - 8.0 g/dL 05/15/2024 8:52 AM EDT [facility] Albumin 3.6 3.2 - 5.2 g/dL 05/15/2024 8:52 AM EDT [facility] Aspartate Aminotransferase 41(H) <=39 unit/L 05/15/2024 8:52 AM EDT [facility] Alanine Aminotransferase 54 0 - 55 unit/L 05/15/2024 8:52 AM EDT [facility] Alkaline Phosphatase 225(H) 40 - 130 unit/L 05/15/2024 8:52 AM T [facility] Bilirubin, Total 0.3 <=1.3 mg/dL 05/15/2024 8:52 AM [facility] Est Glomerular Filtration Rate - Male 94 mL/min/1. 73 m?? 05/15/2024 8:52 AM [facility] Comment: This patient's estimated GFR [...] Fasting Status No 05/15/2024 8:52 AM EDT [facility] Blood VENOUS BLOOD SPECIMEN / Unknown Venipuncture / Unknown 05/15/2024 8:03 AM EDT 05/15/2024 8:03 AM EDT Albania Dutton MD CHEMISTRY ORDERA BLES [facility] [place] [address] * (ABNORMAL) Lactate Dehydrogenase (05/15/2024 8:03 AM EDT) Lactate Dehydrogenase 270(H) 110 - 220 unit/L 05/15/2024 8:52 AM EDT [facility] Blood VENOUS BLOOD SPECIMEN / Unknown Venipuncture / Unknown 05/15/2024 8:03 AM EDT 05/15/2024 8:03 AM EDT Albania Dutton MD CHEMISTRY ORDERA BLES Performing Organization Address City/[facility]/ZIP Co de Phone Number [facility] [place] [address] * (ABNORMAL) TSH (05/15/2024 8:03 AM EDT) Thyroid Stimulating Hormone 6.83(H) 0.27 - 4.20 mcIU/mL 05/15/2024 8:52 AM EDT [facility] Blood VENOUS BLOOD SPECIMEN / Unknown Venipuncture / Unknown 05/15/2024 8:03 AM EDT 05/15/2024 8:03 AM EDT Albania Dutton MD CHEMISTRY ORDERA BLES Performing Organization Address [facility] Co de Phone Number [facility] [place] [address] * T4, free (05/15/2024 8:03 AM EDT) Free T4 1.08 0.93 - 1.70 ng/dL 05/15/2024 8:52 AM EDT [facility] Blood VENOUS BLOOD SPECIMEN / Unknown Venipuncture / Unknown 05/15/2024 8:03 AM EDT 05/15/2024 8:03 AM EDT Narrative Authorizing Provider Result Levi Dutton MD CHEMISTRY ORDERA BLES Performing Organization Address City/[facility] Co de Phone Number [facility] [place] [address] documented in this encounter Visit Diagnoses Diagnosis Non-small cell lung cancer, unspecified laterality Medication management Encounter for long-term (current) use of other medications documented in this encounter Care Teams Director Of Market Intelligence Relationship Specialty Start Date End Date America Caro MD [address] [place] [address] PCP - General Family Medicine 03/31/24 documented as of this encounter
--- OUTSIDE RECORDS SUMMARY | 2024-05-28 11:35 | XMS_ITS | Encounter Summary ---
Author Organization [facility] [address] Care Team Providers Care Clin Nurse Spec Name Role Phone America Caro MD Primary Care Provider [phone] Reason for Referral * Diagnostic Test (Routine) - Closed Specialty Diagnoses / Procedures Referred By Contac t Referred To Contact Radiology Diagnoses NSCLC of left lung Procedures MRI Brain wwo Contrast (Generic) Andrea Freeman MD [facility] [place] [address] [place] [address] Referral ID Status Reason Start Date Expiration Date V isits Requested Visits Authorized [id number] Closed Specialty Service Requested 05/01/2024 10/30/2025 1 1 Reason for Visit * Diagnostic Test (Routine) - Closed Specialty Diagnoses / Procedures Referred By Contac t Referred To Contact Radiology Diagnoses NSCLC of left lung Procedures MRI Brain wwo Contrast (Generic) Andrea Freeman MD [facility] [place] [address] [place] [address] Referral ID Status Reason Start Date Expiration Date V isits Requested Visits Authorized [id number] Closed Specialty Service Requested 05/01/2024 10/30/2025 1 1 Encounter Details Date Type Department Care Team (Latest Contact Info) Description 05/07/2024 7:41 AM EDT - 05/07/2024 11:59 PM EDT Hospital Encounter MRI at [facility] [phone] Andrea Freeman MD [facility] [place] [address] NSCLC of left lung Discharge Disposition: Home Social History Tobacco Use Types Packs/Day Years Used Date Smoking Tobacco: Former Pipe Passive Smoke Exposure: Past Smokeless Tobacco: Never Comments:Smoke pipe for 10 y ears since 13 years old, Does still smoke pot but is slowing down. Passive Exposure Comments:Second hand smoke since 8679-4213 Alcohol Use Standard Drinks/Week Comments Yes 14 (1 standard drink = 0.6 oz pure alcohol) hardly any for the last month B1300 Health Literacy Answer Date Recor ded How often do you need to hav e someone help you when you read instructions, pamphlets, or other written material from your doctor or pharmacy? Never 05/04/2024 [facility] Utilities Answer Date Recorded In the [...] 9:00 AM EST Infusion Hematology Oncology at [address] [phone] 06/05/2024 9:15 AM EST Laboratory Appointment Lab at [facility] Hematology Oncology [address] [place] [phone] 06/05/2024 10:30 AM EST Office Visit Hematology [place] [address] Albania Chahal MD [facility] HEMATOLOGY[place] [address] 06/05/2024 1:00 PM EST Hospital Encounter Hematology [place] [address] 06/05/2024 2:00 PM EST Clinical Support Hematology [place] [address] Aniya Saab, [place] [facility] [place] [address] 06/26/2024 9:15 AM EST Laboratory Appointment Lab at [facility] Hematology Oncology [address] [place] [phone] 06/26/2024 10:30 AM EST Office Visit Hematology [place] [address] Albania Chahal MD [facility] [place] [address] 06/26/2024 12:00 PM EST Appointment Hematology [place] [address] 07/17/2024 9:30 AM EST Laboratory Appointment Lab at [facility] Hematology Oncology [address] [place] [phone] 07/17/2024 10:30 AM EST Office Visit Hematology [place] [address] Albania Chahal MD [facility] HEMATOLOGY[place] [address] 07/17/2024 12:00 PM EST Appointment Hematology [place] [address] documented as of this encounter Procedures Procedure Name Priority Date/Time Associated Diagnosis Comments MRI BRAIN WWO CONTRAST (GENERIC) Routine 05/07/2024 9:14 AM EDT NSCLC of left lung documented in this encounter Results * MRI Brain wwo Contrast (Generic) (05/07/2024 9:14 AM EDT) WORKSTATION ID [id number] RAD Anatomical Region Laterality Modality Head Magnetic [...] who have questions please contact the health health care assistant that requested your imaging first. [...] patients who have questions please contactthe health health care assistant that requested your imaging first. Andrea Freeman MD [facility] MRI ORDERABLES documented in this encounter Visit [...] mLs documented in this encounter Care Teams Clin Nurse Spec Relationship Specialty Start Date End Date America Caro MD [address] [place] [address] PCP - General Family Medicine 03/31/24 documented as of this encounter
--- OUTSIDE RECORDS SUMMARY | 2024-05-28 11:35 | XMS_ITS | Encounter Summary ---
Author Organization [facility] Address [facility] [place] [address] Care Team Providers Care [employer] Name Role Phone America Caro MD Primary Care Provider [phone] Encounter Details Date Type Department Care Team (Latest Contact Info) Description 05/06/2024 Travel Social History Tobacco Use Types Packs/Day Years Used Date Smoking Tobacco: Former Pipe Passive Smoke Exposure: Past Smokeless Tobacco: Never Comments:Smoke pipe for 10 y ears since 13 years old, Does still smoke pot but is slowing down. Passive Exposure Comments:Second hand smoke since 1701-4983 Alcohol Use Standard Drinks/Week Comments Yes 14 (1 standard drink = 0.6 oz pure alcohol) hardly any for the last month B1300 Health Literacy Answer Date Recor ded How often do you need to hav e someone help you when you read instructions, pamphlets, or other written material from your doctor or pharmacy? Never 05/04/2024 [facility] Utilities Answer Date Recorded In the past 12 months has [employer], gas, oil, or water [employer] threatened to shut off services in your [...] any time in the past 12 m [facility], were you homeless or living in [...] 9:00 AM EST Infusion Hematology Oncology at [address] [address] 06/05/2024 9:15 AM EST Laboratory Appointment Lab at [facility] Hematology Oncology [address] [place] [phone] 06/05/2024 10:30 AM EST Office Visit Hematology [place] [phone] Albania Chahal MD [facility] HEMATOLOGY/[place] [address] 06/05/2024 1:00 PM EST Hospital Encounter Hematology [place] [phone] 06/05/2024 2:00 PM EST Clinical Support [place]ematology [place] [phone] [facility] [place] [address] 06/26/2024 9:15 AM EST Laboratory Appointment Lab at [facility] Hematology Oncology [address] [place] [phone] 06/26/2024 10:30 AM EST Office Visit Hematology [place] [address] Albania Chahal MD [facility] HEMATOLOGY/[place] [address] 06/26/2024 12:00 PM EST Appointment Hematology [place] [address] 07/17/2024 9:30 AM EST Laboratory Appointment Lab at [facility] Hematology Oncology [address] [place] [phone] 07/17/2024 10:30 AM EST Office Visit Hematology [place] [address] Albania Chahal MD [facility] HEMATOLOGY[place] [address] 07/17/2024 12:00 PM EST Appointment Hematology [place] [address] documented as of this encounter Visit Diagnoses Not on filedocumented in this encounter Care Teams [employer] Relationship Specialty Start Date End Date America Caro MD [address] [place] [address] PCP - General Family Medicine 03/31/24 documented as of this encounter
--- OUTSIDE RECORDS SUMMARY | 2024-05-28 11:35 | XMS_ITS | Encounter Summary ---
Author Organization [facility] [address] Care Team Providers Care Social Worker Clinical Name Role Phone America Caro MD Primary Care Provider [phone] Reason for Referral * Diagnostic Test (Routine) - Closed Specialty Diagnoses / Procedures Referred By Contac t Referred To Contact Radiology Diagnoses NSCLC of left lung Procedures MRI Brain wwo Contrast (Generic) Andrea Freeman MD [facility] [place] [address] [place] [address] Referral ID Status Reason Start Date Expiration Date V isits Requested Visits Authorized [id number] Closed Specialty Service Requested 05/01/2024 10/30/2025 1 1 Encounter Details Date Type Department Care Team (Late st Contact Info) Description 05/01/2024 [place] [address] Andrea Freeman MD [facility] [place] [address] Social History Tobacco Use Types Packs/Day Years Used Date Smoking Tobacco: Former Pipe Passive Smoke Exposure: Past Smokeless Tobacco: Never Comments:Smoke pipe for 10 y ears since 13 years old, Does still smoke pot but is slowing down. Passive Exposure Comments:Second hand smoke since 1252-6430 Alcohol Use Standard Drinks/Week Comments Yes 14 [...] Pulmonology Telephone Encounter: I called Mr. Henry Javeir on 05/01/2024 at 1:23 PM. We discussed [...] were answered to his liking. Home Phone [phone] Andrea Freeman MD, 05/01/2024, 1:23 PM Interventional Pulmonology Section of Pulmonary & Critical Care Pager: [phone] documented in this encounter Plan of Treatment Upcoming Encounters Date Type Department Care Team (Late st Contact Info) Description 05/30/2024 9:00 AM EST Infusion Hematology Oncology at [address] [phone] 06/05/2024 9:15 AM EST Laboratory Appointment Lab at [facility] Hematology Oncology [address] [place] [phone] 06/05/2024 10:30 AM EST Office Visit Hematology [place] [address] Albania Chahal MD [facility] [place]ATOLOGY[place] [address] 06/05/2024 1:00 PM EST Hospital Encounter Hematology [place] [address] 06/05/2024 2:00 PM EST Clinical Support Hematology [place] [address] [facility] [place] [address] 06/26/2024 9:15 AM EST Laboratory Appointment Lab at [facility] Hematology Oncology [address] [place] [phone] 06/26/2024 10:30 AM EST Office Visit Hematology [place] [phone] Albania Chahal MD [facility] HEMATOLOGY/[place] [address] 06/26/2024 12:00 PM EST Appointment Hematology [place] [phone] 07/17/2024 9:30 AM EST Laboratory Appointment Lab at [facility] Hematology Oncology [address] [place] [phone] 07/17/2024 10:30 AM EST Office Visit Hematology [place] [phone] Albania Chahal MD [facility] HEMATOLOGY/[place] [address] 07/17/2024 12:00 PM EST Appointment Hematology [place] [phone] documented as of this encounter Results * MRI Brain wwo Contrast (Generic) (05/07/2024 9:14 AM EDT) [employer] WORKSTATION ID [id number] DH RAD Anatomical Region Laterality Modality Head Magnetic [...] have questions please contact the health care taker that requested your imaging first. ? Electronically signed by: Cosme Min MD, [facility] ([phone]), at 05/08/2024 12:31 AM Narrative 05/08/2024 12:31 [...] who have questions please contactthe health care taker that requested your imaging first. Electronically signed by: Cosme Min MD, [facility]([phone]), at 05/08/2024 12:31 AM Andrea Freeman MD IMG MRI ORDERABLES documented in this encounter Visit Diagnoses Diagnosis NSCLC of left lung NSCLC of left lung documented in this encounter Care Teams Social Worker Clinical Relationship Specialty Start Date End Date America Caro MD [address] [place] [address] PCP - General Family Medicine 03/31/24 documented as of this encounter
--- OUTSIDE RECORDS SUMMARY | 2024-05-28 11:35 | XMS_ITS | Encounter Summary ---
[place] [address] Care Team Providers Care Truck Cleaner Name Role Phone America Caro MD Primary Care Provider [phone] Reason for Visit * Reason Onset Date Comments Establish Care 05/06/2024 Encounter Details Date Type Department Care Team (Late st Contact Info) Description 05/06/2024 Patient Outreach [place] [phone] Filemon Millan, RN Establish Care Social History Tobacco Use Types Packs/Day Years Used Date Smoking Tobacco: Former Pipe Passive Smoke Exposure: Past Smokeless Tobacco: Never Comments:Smoke pipe for 10 y ears since 13 years old, Does still smoke pot but is slowing down. Passive Exposure Comments:Second hand smoke since 6477-8815 Alcohol Use Standard Drinks/Week Comments Yes 14 (1 standard drink = 0.6 oz pure alcohol) hardly any for the last month B1300 Health Literacy Answer Date Recor ded How often do you need to hav e someone help you when you read instructions, pamphlets, or other written material from your doctor or pharmacy? Never 05/04/2024 [facility] Utilities Answer Date Recorded In the [...] were you homeless or living in a fdc (including now)? No 05/04/2024 Sex and Gender Information Value Date Recorded Sex Assigned at Not on file Gender Identity Not on file Sexual Orientation Not on file documented as of this encounter Progress Notes * Filemon Millan RN - 05/06/2024 1:54 PM EDT [facility] Oncology Nurse Navigation Patient Intake & Care Plan Met with Henry Gary Concepcion 'Adams' a 68 y.o. diagnosed with non-small cell lung cancer to assess for nurse navigation services. Introduced the role of Thoracic Navigator as a point of contact for communication between different disciplines and a collection manager of timely access to care and resources. [...] may years ago, but since moving to [place] has been a heavy marijuana smoker. He recently switched to edibles. Lifestyle/Living arrangements/Social: Adams lives in [place], [place]. He has a bird dog who has a lot of energy and keeps Bill active. He moved to [place] from [place] 5 years ago. He is very close with his nephew and family who live nearby, and has some good friends and neighbors. In his free time Adams does some bird hunting and plays iris music on the flute and accordion. Transportation: Adams is closer to [facility] but is also fine driving to [place] for some treatment. He will see how things go and decide. 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 Medicare and [employer] insurance. Gave patient navigator contact information, advised to call for assistance coordinating care or with any questions or concerns. Outlined main ancillary services available to help support patient, including Social Work, Palliative Care, Psycho Onc, Nutrition and PT. Patient prefers treatment in [facility] or [place]. PLAN: [employer] [address] chest in [facility] for treatment PDL1 pending ONN to follow Thoracic Oncology Nurse Navigator is ALEXANDR Weldon, RN. documented in this encounter Plan of Treatment Upcoming Encounters Date Type Department Care Team (Late st Contact Info) Description 05/30/2024 9:00 AM EST Infusion Hematology Oncology at [address] [address] 06/05/2024 9:15 AM EST Laboratory Appointment Lab at [facility] Hematology Oncology [address] [place] [phone] 06/05/2024 10:30 AM EST Office Visit [place]ematology [place] [address] Albania Chahal MD [facility] HEMATOLOGY/[place] [address] 06/05/2024 1:00 PM EST Hospital Encounter Hematology [place] [address] 06/05/2024 2:00 PM EST Clinical Support [place]ematology [place] [address] Aniya Saab, [place] [facility] [place] [address] 06/26/2024 9:15 AM EST Laboratory Appointment Lab at [facility] Hematology Oncology [address] [place] [phone] 06/26/2024 10:30 AM EST Office Visit Hematology and Oncology at [place] [phone] Albania Chahal MD [facility] HEMATOLOGY/[place] [address] 06/26/2024 12:00 PM EST Appointment Hematology [place] [address] 07/17/2024 9:30 AM EST Laboratory Appointment Lab at [facility] Hematology [address] [phone] 07/17/2024 10:30 AM EST Office Visit [place]ematology [place] [address] Albania Chahal MD [facility] HEMATOLOGY[place] [address] 07/17/2024 12:00 PM EST Appointment [place]ematology [place] [address] documented as of this encounter Visit Diagnoses Not on filedocumented in this encounter Care Teams Truck Cleaner Relationship Specialty Start Date End Date America Caro MD [address] [place] [address] PCP - General Family Medicine 03/31/24 documented as of this encounter
--- OUTSIDE RECORDS SUMMARY | 2024-05-28 11:35 | XMS_ITS | Encounter Summary ---
Author Organization [facility] Address [facility] [place] [address] Care Team Providers Care Facility Maintenance Manager Name Role Phone America Caro MD Primary Care Provider [phone] Encounter Details Date Type Department Care Team (Late st Contact Info) Description 05/09/2024 Orders Only Hematology [place] [address] Albania Chahal MD [facility] [address] [place]ATOLOGY/[place] [address] Non-small cell lung cancer, unspecified laterality Social History Tobacco Use Types Packs/Day Years Used Date Smoking Tobacco: Former Pipe Passive Smoke Exposure: Past Smokeless Tobacco: Never Comments:Smoke pipe for 10 y ears since 13 years old, Does still smoke pot but is slowing down. Passive Exposure Comments:Second hand smoke since 2714-2460 Alcohol Use Standard Drinks/Week Comments Yes 14 (1 standard drink = 0.6 oz pure alcohol) hardly any for the last month B1300 Health Literacy Answer Date Recor ded How often do you need to hav e someone help you when you read instructions, pamphlets, or other written material from your doctor or pharmacy? Never 05/04/2024 [facility] Utilities Answer Date Recorded In the [...] any time in the past 12 m [facility], were you homeless or living in a snf (including now)? No 05/04/2024 Sex and Gender Information Value Date Recorded Sex Assigned at Not on file Gender Identity Not on file Sexual Orientation Not on file documented as of this encounter Plan of Treatment Upcoming Encounters Date Type Department Care Team (Late st Contact Info) Description 05/30/2024 9:00 AM EST Infusion Hematology Oncology at [address] [address] 06/05/2024 9:15 AM EST Laboratory Appointment Lab at [facility] Hematology Oncology [address] [place] [phone] 06/05/2024 10:30 AM EST Office Visit Hematology [place] [phone] Albania Chahal MD [facility] HEMATOLOGY/[place] [address] 06/05/2024 1:00 PM EST Hospital Encounter Hematology [place] [address] 06/05/2024 2:00 PM EST Clinical Support [place] [address] Aniya Saab, [place] [facility] [place] [address] 06/26/2024 9:15 AM EST Laboratory Appointment Lab at [facility] Hematology Oncology [address] [place] [phone] 06/26/2024 10:30 AM EST Office Visit Hematology [place] [address] Albania Chahal MD [facility] [place]ATOLOGY/[place] [address] 06/26/2024 12:00 PM EST Appointment Hematology [place] [address] 07/17/2024 9:30 AM EST Laboratory Appointment Lab at [facility] Hematology Oncology [address] [place] [phone] 07/17/2024 10:30 AM EST Office Visit [place]ematology [place] [address] Albania Chahal MD [facility] HEMATOLOGY[place] [address] 07/17/2024 12:00 PM EST Appointment Hematology [place] [address] Pending Results Name Type Priority Associated Diagnoses [...] laterality documented in this encounter Care Teams Facility Maintenance Manager Relationship Specialty Start Date End Date America Caro MD [address] [place] [address] PCP - General Family Medicine 03/31/24 documented as of this encounter
--- OUTSIDE RECORDS SUMMARY | 2024-05-28 11:35 | XMS_ITS | Encounter Summary ---
[place] [address] Care Team Providers Care Coal Deliverer Name Role Phone America Caro MD Primary Care Provider [phone] Encounter Details Date Type Department Care Team (Late st Contact Info) Description 05/09/2024 Patient Outreach Hematology [place] [phone] Filemon Millan, RN Social History Tobacco Use Types Packs/Day Years Used Date Smoking Tobacco: Former Pipe Passive Smoke Exposure: Past Smokeless Tobacco: Never Comments:Smoke pipe for 10 y ears since 13 years old, Does still smoke pot but is slowing down. Passive Exposure Comments:Second hand smoke since 3349-1292 Alcohol Use Standard Drinks/Week Comments Yes 14 (1 standard drink = 0.6 oz pure alcohol) hardly any for the last month B1300 Health Literacy Answer Date Recor ded How often do you need to hav e someone help you when you read instructions, pamphlets, or other written material from your doctor or pharmacy? Never 05/04/2024 [facility] Utilities Answer Date Recorded In [...] pericarditis vs cancer. Patient will contact his cro, Dr. Zavala, at [facility] to discuss. He has an appointment scheduled for early June, but will work on moving that up and knows to call [employer] assembly line worker for assistance if he is unable to do so. documented in this encounter Plan of Treatment Upcoming Encounters Date Type Department Care Team (Late st Contact Info) Description 05/30/2024 9:00 AM EST Infusion Hematology Oncology at [address] [address] 06/05/2024 9:15 AM EST Laboratory Appointment Lab at [facility] Hematology Oncology [address] [place] [phone] 06/05/2024 10:30 AM EST Office Visit Hematology and Oncology at [place] [phone] Albania Chahal MD [facility] HEMATOLOGY/[place] [address] 06/05/2024 1:00 PM EST Hospital Encounter Hematology [place] [phone] 06/05/2024 2:00 PM EST Clinical Support Hematology and Oncology at [place] [phone] [facility] [place] [address] 06/26/2024 9:15 AM EST Laboratory Appointment Lab at [facility] Hematology Oncology [address] [place] [phone] 06/26/2024 10:30 AM EST Office Visit Hematology [place] [phone] Albania Chahal MD [facility] [address] [place] [address] 06/26/2024 12:00 PM EST Appointment Hematology [place] [phone] 07/17/2024 9:30 AM EST Laboratory Appointment Lab at [facility] Hematology Oncology [address] [place] [phone] 07/17/2024 10:30 AM EST Office Visit Hematology [place] [phone] Albania Chahal MD [facility] HEMATOLOGY/[place] [address] 07/17/2024 12:00 PM EST Appointment Hematology [place] [address] documented as of this encounter Visit Diagnoses Not on filedocumented in this encounter Care Teams Coal Deliverer Relationship Specialty Start Date End Date America Caro MD [address] [place] [address] PCP - General Family Medicine 03/31/24 documented as of this encounter
--- OUTSIDE RECORDS SUMMARY | 2024-05-28 11:35 | XMS_ITS | Encounter Summary ---
Author Organization [facility] Address [facility] [place] [address] Care Team Providers Care Loaders Name Role Phone America Caro MD Primary Care Provider [phone] Encounter Details Date Type Department Care Team (Latest Contact Info) Description 05/09/2024 Travel Social History Tobacco Use Types Packs/Day Years Used Date Smoking Tobacco: Former Pipe Passive Smoke Exposure: Past Smokeless Tobacco: Never Comments:Smoke pipe for 10 y ears since 13 years old, Does still smoke pot but is slowing down. Passive Exposure Comments:Second hand smoke since 4590-5296 Alcohol Use Standard Drinks/Week Comments Yes 14 (1 standard drink = 0.6 oz pure alcohol) hardly any for the last month B1300 Health Literacy Answer Date Recor ded How often do you need to hav e someone help you when you read instructions, pamphlets, or other written material from your doctor or pharmacy? Never 05/04/[address] [facility] Utilities Answer Date Recorded In the past 12 months has [email or web address], gas, oil, or water [email or web address] threatened to shut off services in your [...] any time in the past 12 m [facility], were you homeless or living in [...] AM EST Infusion Hematology Oncology at [address] [address] 06/05/2024 9:15 AM EST Laboratory Appointment Lab at [facility] Hematology Oncology [address] [place] [phone] 06/05/2024 10:30 AM EST Office Visit Hematology [place] [phone] Albania Chahal MD [facility] HEMATOLOGY/[place] [address] 06/05/2024 1:00 PM EST Hospital Encounter Hematology [place] [phone] 06/05/2024 2:00 PM EST Clinical Support Hematology [place] [phone] [facility] [place] [address] 06/26/2024 9:15 AM EST Laboratory Appointment Lab at [facility] Hematology Oncology [address] [place] [phone] 06/26/2024 10:30 AM EST Office Visit Hematology [place] [address] Albania Chahal MD [facility] HEMATOLOGY[place] [address] 06/26/2024 12:00 PM EST Appointment Hematology [place] [address] 07/17/2024 9:30 AM EST Laboratory Appointment Lab at [facility] Hematology Oncology [address] [place] [phone] 07/17/2024 10:30 AM EST Office Visit Hematology [place] [address] Albania Chahal MD [facility] HEMATOLOGY/[place] [address] 07/17/2024 12:00 PM EST Appointment Hematology [place] [address] documented as of this encounter Visit Diagnoses Not on filedocumented in this encounter Care Teams Loaders Relationship Specialty Start Date End Date America Caro MD [address] [place] [address] PCP - General Family Medicine 03/31/24 documented as of this encounter
--- OUTSIDE RECORDS SUMMARY | 2024-05-28 11:35 | XMS_ITS | Encounter Summary ---
[place] [address] Care Team Providers Care Budget Analyst Name Role Phone America Caro MD Primary Care Provider [phone] Reason for Referral * Diagnostic Test (Routine) - Authorized Specialty Diagnoses / Procedures Referred By Contac t Referred To Contact Radiology Diagnoses Non-small cell lung cancer, unspecified laterality Procedures CT Chest w Contrast Albania Chahal MD [facility] DR HEMATOLOGY/[place] [address] Referral ID Status Reason Start Date Expiration Date Visits Requested Visits Authorized [id number] Authorized Specialty Service Requested 4 11/04/2025 1 1 Reason for Visit * Reason Comments Advice Only * Consultation (Urgent) - Authorized Specialty Diagnoses / Procedures Referred By Contac t Referred To Contact Hematology and Oncology Diagnoses Malignant neoplasm of bronchus and lung HAS LARGE PERICARDIAL EFFUSION America Caro MD [address] [place] [address] [facility] Hem Onc [address] [place] [address] Referral ID Status Reason Start Date Expiration Date Visits Requested Visits Authorized [id number] Authorized Consult, Test & Treat PCP Updated and/or Approved 04/14/2024 10/12/2024 6 6 Encounter Details Date Type Department Care Team (Late st Contact Info) Description 05/06/2024 1:00 PM EDT Office Visit Hematology and Oncology at [facility] [place] [phone] Albania Chahal MD [facility] HEMATOLOGY/[place] [address] Non-small cell lung cancer, unspecified laterality Social History Tobacco Use Types Packs/Day Years Used Date Smoking Tobacco: Former Pipe Passive Smoke Exposure: Past Smokeless Tobacco: Never Comments:Smoke pipe for 10 y ears since 13 years old, Does still smoke pot but is slowing down. Passive Exposure Comments:Second hand smoke since 9909-0329 Alcohol Use Standard Drinks/Week Comments Yes 14 (1 standard drink = 0.6 oz pure alcohol) hardly any for the last month B1300 Health Literacy Answer Date Recor ded How often do you need to hav e someone help you when you read instructions, pamphlets, or other written material from your doctor or pharmacy? Never 05/04/2024 [facility] Utilities Answer Date Recorded In [...] SYSTEMS: As per HPI. A 12 point [id number] was obtained. Symptoms as explained in the [...] . 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 Alcohol: He drank heavily for a long [...] and next-generation sequencing to identify any tumor limb driver alterations were ordered yesterday (04/22/2024). Results [...] with infusions scheduled for Day 1 at [facility] and Days 8 and 15 at [facility]. I will arrange for an [...] treatment for pericarditis as directed by the gun fitter. I spent 60 minutes in the total care of this patient including review of records and imaging, [id number] consultation and counseling, interpretation of studies, coordination of care and documentation. Ablania Milian M.D. Thoracic Oncology Pager # [phone] 05/06/24, 2:47 PM [facility] documented in this encounter Plan of Treatment Upcoming Encounters Date Type Department Care Team (Late st Contact Info) Description 05/30/2024 9:00 AM EST Infusion Hematology Oncology at [address] [phone] 06/05/2024 9:15 AM EST Laboratory Appointment Lab at [facility] Hematology Oncology [address] [place] [phone] 06/05/2024 10:30 AM EST Office Visit [place] [address] Albania Chahal MD [facility] HEMATOLOGY[place] [address] 06/05/2024 1:00 PM EST Hospital Encounter [place]ology [place] [address] 06/05/2024 2:00 PM EST Clinical Support [place] [address] Aniya Saab, KEATON [facility] [place] [address] 06/26/2024 9:15 AM EST Laboratory Appointment Lab at [facility] Hematology Oncology [address] [place] [phone] 06/26/2024 10:30 AM EST Office Visit [place] [address] Albania Chahal MD [facility] HEMATOLOGY/[place] [address] 06/26/2024 12:00 PM EST Appointment [place]ology [place] [address] 07/17/2024 9:30 AM EST Laboratory Appointment Lab at [facility] Hematology Oncology [address] [place] [phone] 07/17/2024 10:30 AM EST Office Visit [place] [phone] Albania Chahal MD [facility] HEMATOLOGY/[place] [address] 07/17/2024 12:00 PM EST Appointment [place]ology [place] [phone] Pending Results Name Type Priority Associated Diagnoses [...] - 220 unit/L 05/06/2024 1:06 PM EDT [facility] Blood VENOUS BLOOD SPECIMEN / Unknown Venipuncture / Unknown 05/06/2024 12:15 PM EDT 05/06/2024 12:15 PM EDT Albania Schumacher Maicol Dutton MD CHEMISTRY ORDERA BLES [facility] [place] [address] * (ABNORMAL) Comprehensive metabolic panel Non-fasting (05/06/2024 12:15 PM EDT) Glucose 97 65 - 199 mg/dL 05/06/2024 1:18 PM EDT [facility] Comment:Glucose Concentratio n >=200 mg/dL plus symptoms is consistent with Diabetes Mellitus. Blood Urea Nitrogen 19 10 - 20 mg/dL 05/06/2024 1:18 PM EDT [facility] Creatinine 0.79(L) 0.80 - 1.50 mg/dL 05/06/2024 1:18 PM EDT [facility] Sodium 133(L) 135 - 145 mMol/L 05/06/2024 1:18 PM EDT [facility] Potassium 4.9 3.5 - 5.0 mMol/L 05/06/2024 1:18 PM EDT [facility] Chloride 96(L) 98 - 107 mMol/L 05/06/2024 1:18 PM EDT [facility] Carbon Dioxide 27 22 - 31 mMol/L 05/06/2024 1:18 PM EDT [facility] Anion Gap 10 5 - 15 mMol/L 05/06/2024 1:18 PM EDT [facility] Calcium 9.8 8.5 - 10.5 mg/dL 05/06/2024 1:18 PM EDT [facility] Protein, Total 8.4(H) 6.1 - 8.0 g/dL 05/06/2024 1:18 PM EDT [facility] Albumin 3.9 3.2 - 5.2 g/dL 05/06/2024 1:18 PM EDT [facility] Aspartate Aminotransferase 33 <=39 unit/L 05/06/2024 1:18 PM EDT [facility] Alanine Aminotransferase 34 0 - 55 unit/L 05/06/2024 1:18 PM EDT [facility] Alkaline Phosphatase 265(H) 40 - 130 unit/L 05/06/2024 1:18 PM EDT [facility] Bilirubin, Total 0.4 <=1.3 mg/dL 05/06/2024 1:18 PM EDT [facility] Est Glomerular Filtration Rate - Male 96 mL/min/1. 73 m?? 05/06/2024 1:18 PM EDT [facility] Comment: This [...] Fasting Status No 05/06/2024 1:18 PM EDT [facility] Blood VENOUS BLOOD SPECIMEN / Unknown Venipuncture / Unknown 05/06/2024 12:15 PM EDT 05/06/2024 12:15 PM EDT Albania Dutton MD CHEMISTRY ORDERA BLES [facility] [place] [address] * (ABNORMAL) CBC (with Diff) (05/06/2024 12:15 PM EDT) White Blood Cell 9.45 4.00 - 9.50 x10(3)/mc L 05/06/2024 12:33 PM EDT [facility] Red Blood Cell 4.99 4.58 - 5.54 x10(6)/mc L 05/06/2024 12:33 PM [facility] Hemoglobin 12.9(L) 13.7 - 16.5 g/dL 05/06/2024 12:33 PM [facility] Hematocrit 40.2(L) 40.5 - 48.5 % 05/06/2024 12:33 PM [facility] Mean Cell Volume 80.6(L) 82.9 - 93.1 fL 05/06/2024 12:33 PM [facility] Mean Cell Hemoglobin 25.9(L) 27.5 - 32.1 pg 05/06/2024 12:33 PM [facility] Mean Cell Hemoglobin Concentration 32.1 32.0 - 35.7 g/dL 05/06/2024 12:33 PM [facility] Platelet 689(H) 145 - 357 x10(3)/mc L 05/06/2024 12:33 PM [facility] Mean Platelet Volume 8.5 7.6 - 12.9 fL 05/06/2024 12:33 PM [facility] RDW Standard Deviation 44.5 36.0 - 45.0 fL 05/06/2024 12:33 PM [facility] RDW coefficient of variation 15.2(H) 11.4 - 13.8 % 05/06/2024 12:33 PM [facility] NRBC% auto 0.0 % 05/06/2024 12:33 PM [facility] NRBC Absolute <0.01 <0.01 x10(3)/mc L 05/06/2024 12:33 PM [facility] Neutrophil % 81.1 % 05/06/2024 12:33 PM [facility] Neutrophil Absolute (ANC) - Automated 7.65(H) 1.70 - 6.10 x10(3)/mc L 05/06/2024 12:33 PM [facility] Lymph % 11.6 % 05/06/2024 12:33 PM [facility] Lymph Absolute 1.10 0.90 - 3.20 x10(3)/mc L 05/06/2024 12:33 PM EDT [facility] Monocyte % 6.2 % 05/06/2024 12:33 PM EDT [facility] Monocyte Absolute 0.59 0.30 - 0.90 x10(3)/mc L 05/06/2024 12:33 PM EDT [facility] Eos % 0.2 % 05/06/2024 12:33 PM EDT [facility] Eos Absolute <0.04 0.00 - 0.40 x10(3)/mc L 05/06/2024 12:33 PM EDT [facility] Basophil % 0.4 % 05/06/2024 12:33 PM EDT [facility] Baso Absolute 0.04 0.00 - 0.10 x10(3)/mc L 05/06/2024 12:33 PM EDT [facility] Immature Gran % 0.5 % 12:33 PM EDT [facility] Immature Gran Absolute 0.05(H) 0.00 - 0.04 x10(3)/mc L 05/06/2024 12:33 PM EDT [facility] Blood VENOUS BLOOD SPECIMEN / Unknown Venipuncture / Unknown 05/06/2024 12:15 PM EDT 05/06/2024 12:15 PM EDT Albania Dutton MD HEMATOLOGY ORDER HERBERTH [facility] [place] [address] documented in this encounter Visit Diagnoses Diagnosis Non-small cell lung cancer, unspecified laterality documented in this encounter Care Teams Budget Analyst Relationship Specialty Start Date End Date America Caro MD [address] [place] [address] PCP - General Family Medicine 03/31/24 documented as of this encounter
--- OUTSIDE RECORDS SUMMARY | 2024-05-28 11:35 | XMS_ITS | Encounter Summary ---
Author Organization [facility] [place] [address] Care Team Providers Care Composite Bond Technician Name Role Phone America Caro MD Primary Care Provider [phone] Encounter Details Date Type Department Care Team (Late st Contact Info) Description 05/09/2024 4:10 PM EDT Ancillary Procedure Radiology Library at [facility] [place] [phone] America Caro MD [address] [place] [address] Social History Tobacco Use Types Packs/Day Years Used Date Smoking Tobacco: Former Pipe Passive Smoke Exposure: Past Smokeless Tobacco: Never Comments:Smoke pipe for 10 y ears since 13 years old, Does still smoke pot but is slowing down. Passive Exposure Comments:Second hand smoke since 0324-5242 Alcohol Use Standard Drinks/Week Comments Yes 14 (1 standard drink = 0.6 oz pure alcohol) hardly any for the last month B1300 Health Literacy Answer Date Recor ded How often do you need to hav e someone help you when you read instructions, pamphlets, or other written material from your doctor or pharmacy? Never 05/04/2024 [facility] Utilities Answer Date Recorded In the past 12 months has e electric, gas, oil, or water [employer] threatened to shut off services in your [...] time in the past 12 m [facility], were you homeless or living in [...] AM EST Infusion Hematology Oncology at [address] [address] 06/05/2024 9:15 AM EST Laboratory Appointment Lab at [facility] Hematology Oncology [address] [place] [phone] 06/05/2024 10:30 AM EST Office Visit [place] [address] Albania Chahal MD [facility] HEMATOLOGY[place] [address] 06/05/2024 1:00 PM EST Hospital Encounter [place] [address] 06/05/2024 2:00 PM EST Clinical Support [place] [address] Aniya Saab, KE[place] [facility] [place] [address] 06/26/2024 9:15 AM EST Laboratory Appointment Lab at [facility] Hematology Oncology [address] [place] [phone] 06/26/2024 10:30 AM EST Office Visit [place] [address] Albania Chahal MD [facility] [place]EMATOLOGY/[place] [address] 06/26/2024 12:00 PM EST Appointment [place] [address] 07/17/2024 9:30 AM EST Laboratory Appointment Lab at [facility] Hematology Oncology [address] [place] [phone] 07/17/2024 10:30 AM EST Office Visit [place] [address] Albania Chahal MD [facility] [place]ATOLOGY/[place] [address] 07/17/2024 12:00 PM EST Appointment [place] [address] documented as of this encounter Procedures Procedure Name Priority Date/Time Associated Diagnosis Comments FILM LIBRARY STORAGE ONLY CT CHEST Routine 05/09/2024 4:08 PM EDT documented in this encounter Results * Film Library- Storage Only CT Chest (05/09/2024 4:08 PM EDT) Narrative [facility] - 05/09/2024 4:08 PM EDT This exam is auto-finalizing. It's purpose is for storage only. America Caro MD IM FILM LIBRARY ORD ERABLES [place], [place] documented in this encounter Visit Diagnoses Not on filedocumented in this encounter Care Teams Composite Bond Technician Relationship Specialty Start Date End Date America Caro MD [address] [place] [address] PCP - General Family Medicine 03/31/24 documented as of this encounter
--- OUTSIDE RECORDS SUMMARY | 2024-05-28 11:35 | XMS_ITS | Encounter Summary ---
Author Organization [facility] Address [facility] [place] [address] Care Team Providers Care Apprentice Electrician Name Role Phone America Caro MD Primary Care Provider [phone] Encounter Details Date Type Department Care Team (Late st Contact Info) Description 05/12/2024 Notes Only Hematology [place] [address] Albania Chahal MD [facility] DR HEMATOLOGY/[place] [address] Social History Tobacco Use Types Packs/Day Years Used Date Smoking Tobacco: Former Pipe Passive Smoke Exposure: Past Smokeless Tobacco: Never Comments:Smoke pipe for 10 y ears since 13 years old, Does still smoke pot but is slowing down. Passive Exposure Comments:Second hand smoke since 6146-5075 Alcohol Use Standard Drinks/Week Comments Yes 14 [...] any time in the past 12 m [facility], were you homeless or living in [...] Albania Milian M.D. Medical Oncology Pager # [phone] 05/12/24, 11:11 AM [facility] [place] [address] documented in this encounter Plan of Treatment Upcoming Encounters Date Type Department Care Team (Late st Contact Info) Description 05/30/2024 9:00 AM EST Infusion Hematology Oncology at [address] [phone] 06/05/2024 9:15 AM EST Laboratory Appointment Lab at [facility] Hematology Oncology [address] [place] [phone] 06/05/2024 10:30 AM EST Office Visit Hematology [place] [phone] Albania Chahal MD [facility] HEMATOLOGY/[place] [address] 06/05/2024 1:00 PM EST Hospital Encounter Hematology [place] [phone] 06/05/2024 2:00 PM EST Clinical Support Hematology [place] [phone] [facility] [place] [address] 06/26/2024 9:15 AM EST Laboratory Appointment Lab at [facility] Hematology Oncology [address] [place] [phone] 06/26/2024 10:30 AM EST Office Visit Hematology [place] [phone] Albania Chahal MD [facility] [address] [place] [address] 06/26/2024 12:00 PM EST Appointment Hematology [place] [phone] 07/17/2024 9:30 AM EST Laboratory Appointment Lab at [facility] Hematology Oncology [address] [place] [phone] 07/17/2024 10:30 AM EST Office Visit Hematology [place] [phone] Albania Chahal MD [facility] [place] [address] 07/17/2024 12:00 PM EST Appointment Hematology [place] [address] documented as of this encounter Visit Diagnoses Not on filedocumented in this encounter Care Teams Apprentice Electrician Relationship Specialty Start Date End Date America Caro MD [address] [place] [address] PCP - General Family Medicine 03/31/24 documented as of this encounter
--- OUTSIDE RECORDS SUMMARY | 2024-05-28 11:35 | XMS_ITS | Encounter Summary ---
[place] [address] Care Team Providers Care Manufacturers Representative Name Role Phone America Caro MD Primary Care Provider [phone] Encounter Details Date Type Department Care Team (Latest Contact Info) Description 05/06/2024 12:00 PM EDT Laboratory Appointment Lab at [facility] Hematology Oncology [address] [place] [phone] Non-small cell lung cancer, unspecified laterality Social History Tobacco Use Types Packs/Day Years Used Date Smoking Tobacco: Former Pipe Passive Smoke Exposure: Past Smokeless Tobacco: Never Comments:Smoke pipe for 10 y ears since 13 years old, Does still smoke pot but is slowing down. Passive Exposure Comments:Second hand smoke since 6104-9632 Alcohol Use Standard Drinks/Week Comments Yes 14 (1 standard drink = 0.6 oz pure alcohol) hardly any for the last month B1300 Health Literacy Answer Date Recor ded How often do you need to hav e someone help you when you read instructions, pamphlets, or other written material from your doctor or pharmacy? Never 05/04/2024 [facility] Utilities Answer Date Recorded In the [...] 9:00 AM EST Infusion Hematology Oncology at [address] [phone] 06/05/2024 9:15 AM EST Laboratory Appointment Lab at [facility] Hematology Oncology [address] [place] [phone] 06/05/2024 10:30 AM EST Office Visit Hematology [place] [address] Albania Chahal MD [facility] HEMATOLOGY/[place] [address] 06/05/2024 1:00 PM EST Hospital Encounter Hematology [place] [address] 06/05/2024 2:00 PM EST Clinical Support Hematology [place] [address] Aniya Saab, [place] [facility] [place] [address] 06/26/2024 9:15 AM EST Laboratory Appointment Lab at [facility] Hematology Oncology [address] [place] [phone] 06/26/2024 10:30 AM EST Office Visit Hematology [place] [address] Albania Chahal MD [facility] HEMATOLOGY/[place] [address] 06/26/2024 12:00 PM EST Appointment Hematology [place] [address] 07/17/2024 9:30 AM EST Laboratory Appointment Lab at [facility] Hematology Oncology [address] [place] [phone] 07/17/2024 10:30 AM EST Office Visit Hematology [place] [address] Albania Chahal MD [facility] HEMATOLOGY/[place] [address] 07/17/2024 12:00 PM EST Appointment Hematology [place] [address] Pending Results Name Type Priority Associated Diagnoses [...] - 220 unit/L 05/06/2024 1:06 PM EDT [facility] Blood VENOUS BLOOD SPECIMEN / Unknown Venipuncture / Unknown 05/06/2024 12:15 PM EDT 05/06/2024 12:15 PM EDT Albania Dutton MD CHEMISTRY ORDERA BLES [facility] [place] [address] * (ABNORMAL) Comprehensive metabolic panel Non-fasting (05/06/2024 12:15 PM EDT) Glucose 97 65 - 199 mg/dL 05/06/2024 1:18 PM EDT [facility] Comment:Glucose Concentratio n >=200 mg/dL plus symptoms is consistent with Diabetes Mellitus. Blood Urea Nitrogen 19 10 - 20 mg/dL 05/06/2024 1:18 PM EDT [facility] Creatinine 0.79(L) 0.80 - 1.50 mg/dL 05/06/2024 1:18 PM EDT [facility] Sodium 133(L) 135 - 145 mMol/L 05/06/2024 1:18 PM EDT [facility] Potassium 4.9 3.5 - 5.0 mMol/L 05/06/2024 1:18 PM EDT [facility] Chloride 96(L) 98 - 107 mMol/L 05/06/2024 1:18 PM EDT [facility] Carbon Dioxide 27 22 - 31 mMol/L 05/06/2024 1:18 PM EDT [facility] Anion Gap 10 5 - 15 mMol/L 05/06/2024 1:18 PM [facility] Calcium 9.8 8.5 - 10.5 mg/dL 05/06/2024 1:18 PM [facility] Protein, Total 8.4(H) 6.1 - 8.0 g/dL 05/06/2024 1:18 PM [facility] Albumin 3.9 3.2 - 5.2 g/dL 05/06/2024 1:18 PM [facility] Aspartate Aminotransferase 33 <=39 unit/L 05/06/2024 1:18 PM [facility] Alanine Aminotransferase 34 0 - 55 unit/L 05/06/2024 1:18 PM [facility] Alkaline Phosphatase 265(H) 40 - 130 unit/L 05/06/2024 1:18 PM [facility] Bilirubin, Total 0.4 <=1.3 mg/dL 05/06/2024 1:18 PM [facility] Est Glomerular Filtration Rate - Male 96 mL/min/1. 73 m?? 05/06/2024 1:18 PM [facility] Comment: This patient's estimated GFR [...] Foundation Fasting Status No 05/06/2024 1:18 PM [facility] Blood VENOUS BLOOD SPECIMEN / Unknown Venipuncture / Unknown 05/06/2024 12:15 PM EDT 05/06/2024 12:15 PM EDT Albania Dutton MD CHEMISTRY ORDERA BLES [facility] [place] [address] * (ABNORMAL) CBC (with Diff) (05/06/2024 12:15 PM EDT) White Blood Cell 9.45 4.00 - 9.50 x10(3)/mc L 05/06/2024 12:33 PM EDT [facility] Red Blood Cell 4.99 4.58 - 5.54 x10(6)/mc L 05/06/2024 12:33 PM EDT [facility] Hemoglobin 12.9(L) 13.7 - 16.5 g/dL 05/06/2024 12:33 PM EDT [facility] Hematocrit 40.2(L) 40.5 - 48.5 % 05/06/2024 12:33 PM EDT [facility] Mean Cell Volume 80.6(L) 82.9 - 93.1 fL 05/06/2024 12:33 PM EDT [facility] Mean Cell Hemoglobin 25.9(L) 27.5 - 32.1 pg 05/06/2024 12:33 PM EDT [facility] Mean Cell Hemoglobin Concentration 32.1 32.0 - 35.7 g/dL 05/06/2024 12:33 PM EDT [facility] Platelet 689(H) 145 - 357 x10(3)/mc L 05/06/2024 12:33 PM EDT [facility] Mean Platelet Volume 8.5 7.6 - 12.9 fL 05/06/2024 12:33 PM EDT [facility] RDW Standard Deviation 44.5 36.0 - 45.0 fL 05/06/2024 12:33 PM EDT [facility] RDW coefficient of variation 15.2(H) 11.4 - 13.8 % 05/06/2024 12:33 PM EDT [facility] NRBC% auto 0.0 % 05/06/2024 12:33 PM [facility] NRBC Absolute <0.01 <0.01 x10(3)/mc L 05/06/2024 12:33 PM [facility] Neutrophil % 81.1 % 05/06/2024 12:33 PM [facility] Neutrophil Absolute (ANC) - Automated 7.65(H) 1.70 - 6.10 x10(3)/mc L 05/06/2024 12:33 PM [facility] Lymph % 11.6 % 05/06/2024 12:33 PM [facility] Lymph Absolute 1.10 0.90 - 3.20 x10(3)/mc L 05/06/2024 12:33 PM [facility] Monocyte % 6.2 % 05/06/2024 12:33 PM [facility] Monocyte Absolute 0.59 0.30 - 0.90 x10(3)/mc L 05/06/2024 12:33 PM [facility] Eos % 0.2 % 05/06/2024 12:33 PM [facility] Eos Absolute <0.04 0.00 - 0.40 x10(3)/mc L 05/06/2024 12:33 PM [facility] Basophil % 0.4 % 05/06/2024 12:33 PM [facility] Baso Absolute 0.04 0.00 - 0.10 x10(3)/mc L 05/06/2024 12:33 PM [facility] Immature Gran % 0.5 % 12:33 PM [facility] Immature Gran Absolute 0.05(H) 0.00 - 0.04 x10(3)/mc L 05/06/2024 12:33 PM [facility] Blood VENOUS BLOOD SPECIMEN / Unknown Venipuncture / Unknown 05/06/2024 12:15 PM EDT 05/06/2024 12:15 PM EDT Albania Dutton MD [place] [address] documented in this encounter Visit Diagnoses Diagnosis Non-small cell lung cancer, unspecified laterality documented in this encounter Care Teams Manufacturers Representative Relationship Specialty Start Date End Date America Caro MD [address] [place] [phone] PCP - General Family Medicine 03/31/24 documented as of this encounter
--- OUTSIDE RECORDS SUMMARY | 2024-05-28 11:35 | XMS_ITS | Encounter Summary ---
[place] [address] Care Team Providers Care Seat Maker Name Role Phone America Caro MD Primary Care Provider [phone] Encounter Details Date Type Department Care Team (Late st Contact Info) Description 05/06/2024 Notes Only Hematology [place] [phone] Olga Ceballos RN Social History Tobacco Use Types Packs/Day Years Used Date Smoking Tobacco: Former Pipe Passive Smoke Exposure: Past Smokeless Tobacco: Never Comments:Smoke pipe for 10 y ears since 13 years old, Does still smoke pot but is slowing down. Passive Exposure Comments:Second hand smoke since 9777-1611 Alcohol Use Standard Drinks/Week Comments Yes 14 (1 standard drink = 0.6 oz pure alcohol) hardly any for the last month B1300 Health Literacy Answer Date Recor ded How often do you need to hav e someone help you when you read instructions, pamphlets, or other written material from your doctor or pharmacy? Never 05/04/2024 [facility] Utilities Answer Date Recorded In [...] and lab specimens collected and shipped to [facility]. FedEx: [id number]. documented in this encounter Plan of Treatment Upcoming Encounters Date Type Department Care Team (Late st Contact Info) Description 05/30/2024 9:00 AM EST Infusion Hematology Oncology at [address] [phone] 06/05/2024 9:15 AM EST Laboratory Appointment Lab at [facility] Hematology Oncology [address] [place] [phone] 06/05/2024 10:30 AM EST Office Visit Hematology [place] [address] Albania Chahal MD [facility] HEMATOLOGY[place] [address] 06/05/2024 1:00 PM EST Hospital Encounter Hematology and Oncology at [place] [phone] 06/05/2024 2:00 PM EST Clinical Support Hematology and Oncology at [place] [phone] Aniya Saab, KE[place] [facility] [place] [place] [address] 06/26/2024 9:15 AM EST Laboratory Appointment Lab at [facility] Hematology Oncology [address] [place] [phone] 06/26/2024 10:30 AM EST Office Visit Hematology [place] [address] Albania Chahal MD [facility] HEMATOLOGY[place] [address] 06/26/2024 12:00 PM EST Appointment Hematology [place] [address] 07/17/2024 9:30 AM EST Laboratory Appointment Lab at [facility] Hematology Oncology [address] [place] [phone] 07/17/2024 10:30 AM EST Office Visit Hematology [place] [address] Albania Chahal MD [facility] HEMATOLOGY[place] [address] 07/17/2024 12:00 PM EST Appointment Hematology [place] [address] documented as of this encounter Visit Diagnoses Not on filedocumented in this encounter Care Teams Seat Maker Relationship Specialty Start Date End Date America Caro MD [address] [place] [address] PCP - General Family Medicine 03/31/24 documented as of this encounter
--- OUTSIDE RECORDS SUMMARY | 2024-05-28 11:35 | XMS_ITS | Encounter Summary ---
[place] [address] Care Team Providers Care Thermodynamics Professor Name Role Phone America Caro MD Primary Care Provider [phone] Encounter Details Date Type Department Care Team (Late st Contact Info) Description 05/09/2024 Notes Only Hematology [place] [phone] Filemon Millan, RN Social History Tobacco Use Types Packs/Day Years Used Date Smoking Tobacco: Former Pipe Passive Smoke Exposure: Past Smokeless Tobacco: Never Comments:Smoke pipe for 10 y ears since 13 years old, Does still smoke pot but is slowing down. Passive Exposure Comments:Second hand smoke since 3907-3149 Alcohol Use Standard Drinks/Week Comments Yes 14 (1 standard drink = 0.6 oz pure alcohol) hardly any for the last month B1300 Health Literacy Answer Date Recor ded How often do you need to hav e someone help you when you read instructions, pamphlets, or other written material from your doctor or pharmacy? Never 05/04/2024 [facility] Utilities Answer Date Recorded In the [...] AM EST Infusion Hematology Oncology at [address] [phone] 06/05/2024 9:15 AM EST Laboratory Appointment Lab at [facility] Hematology Oncology [address] [place] [phone] 06/05/2024 10:30 AM EST Office Visit Hematology [place] [address] Albania Chahla MD [facility] HEMATOLOGY/[place] [address] 06/05/2024 1:00 PM EST Hospital Encounter Hematology [place] [address] 06/05/2024 2:00 PM EST Clinical Support Hematology [place] [phone] Aniya Saab, KE[place]ON [facility] [place] [address] 06/26/2024 9:15 AM EST Laboratory Appointment Lab at [facility] Hematology Oncology [address] [place] [phone] 06/26/2024 10:30 AM EST Office Visit Hematology [place] [address] Albania Chahal MD [facility] HEMATOLOGY/[place] [address] 06/26/2024 12:00 PM EST Appointment Hematology [place] [address] 07/17/2024 9:30 AM EST Laboratory Appointment Lab at [facility] Hematology Oncology [address] [place] [phone] 07/17/2024 10:30 AM EST Office Visit Hematology [place] [address] Albania Chahal MD [facility] HEMATOLOGY/[place] [address] 07/17/2024 12:00 PM EST Appointment Hematology and Oncology at [place] [phone] documented as of this encounter Visit Diagnoses Not on filedocumented in this encounter Care Teams Thermodynamics Professor Relationship Specialty Start Date End Date America Caro MD [address] [place] [address] PCP - General Family Medicine 03/31/24 documented as of this encounter
--- OUTSIDE RECORDS SUMMARY | 2024-05-28 11:35 | XMS_ITS | Encounter Summary ---
[place] [address] Care Team Providers Care Mathematical Engineer Name Role Phone America Caro MD Primary Care Provider [phone] Encounter Details Date Type Department Care Team (Late st Contact Info) Description 05/09/2024 Notes [place] [address] Anna Reed Social History Tobacco Use Types Packs/Day Years Used Date Smoking Tobacco: Former Pipe Passive Smoke Exposure: Past Smokeless Tobacco: Never Comments:Smoke pipe for 10 y ears since 13 years old, Does still smoke pot but is slowing down. Passive Exposure Comments:Second hand smoke since 1215-3283 Alcohol Use Standard Drinks/Week Comments Yes 14 (1 standard drink = 0.6 oz pure alcohol) hardly any for the last month B1300 Health Literacy Answer Date Recor ded How often do you need to hav e someone help you when you read instructions, pamphlets, or other written material from your doctor or pharmacy? Never 05/04/2024 [facility] Utilities Answer Date Recorded In [...] any time in the past 12 m [facility], were you homeless or living [...] the reminder 20% as long as the [id number] maximum has been met. The patient was also advised that [employer] has previously done away with the [id number] maximum for ret iree patients. Financial Assistance [...] AM EST Infusion Hematology Oncology at [address] [phone] 06/05/2024 9:15 AM EST Laboratory Appointment Lab at [facility] Hematology Oncology [address] [place] [phone] 06/05/2024 10:30 AM EST Office Visit H[place]ology [place] [phone] Albania Chahal MD [facility] HEMATOLOGY/[place] [address] 06/05/2024 1:00 PM EST Hospital Encounter Hematology [place] [address] 06/05/2024 2:00 PM EST Clinical Support [place] [phone] Aniya Saab, [place] [facility] [place] [address] 06/26/2024 9:15 AM EST Laboratory Appointment Lab at [facility] Hematology Oncology [address] [place] [phone] 06/26/2024 10:30 AM EST Office Visit [place]ematology [place] [address] Albania Chahal MD [facility] DR [place] [address] 06/26/2024 12:00 PM EST Appointment Hematology [place] [address] 07/17/2024 9:30 AM EST Laboratory Appointment Lab at [facility] Hematology Oncology [address] [place] [phone] 07/17/2024 10:30 AM EST Office Visit [place]ematology [place] [address] Albania Chahal MD [facility] HEMATOLOGY/[place] [address] 07/17/2024 12:00 PM EST Appointment Hematology [place] [phone] documented as of this encounter Visit Diagnoses Not on filedocumented in this encounter Care Teams Mathematical Engineer Relationship Specialty Start Date End Date America Caro MD [address] [place] [address] PCP - General Family Medicine 03/31/24 documented as of this encounter
--- OUTSIDE RECORDS SUMMARY | 2024-05-28 11:35 | XMS_ITS | Encounter Summary ---
Author Organization [facility] Address [facility] [place] [address] Care Team Providers Care Van Helper Name Role Phone America Caro MD Primary Care Provider [phone] Encounter Details Date Type Department Care Team (Latest Contact Info) Description 05/04/2024 Travel Social History Tobacco Use Types Packs/Day Years Used Date Smoking Tobacco: Former Pipe Passive Smoke Exposure: Past Smokeless Tobacco: Never Comments:Smoke pipe for 10 y ears since 13 years old, Does still smoke pot but is slowing down. Passive Exposure Comments:Second hand smoke since 8127-7272 Alcohol Use Standard Drinks/Week Comments Yes 14 (1 standard drink = 0.6 oz pure alcohol) hardly any for the last month B1300 Health Literacy Answer Date Recor ded How often do you need to hav e someone help you when you read instructions, pamphlets, or other written material from your doctor or pharmacy? Never 05/04/2024 [facility] Utilities Answer Date Recorded In the past 12 months has [employer], gas, oil, or water [employer] threatened to shut off services in your [...] time in the past 12 m [facility], were you homeless or living in a [...] AM EST Infusion Hematology Oncology at [address] [phone] 06/05/2024 9:15 AM EST Laboratory Appointment Lab at [facility] Hematology Oncology [address] [place] [phone] 06/05/2024 10:30 AM EST Office Visit Hematology [place] [phone] Albania Chahal MD [facility] HEMATOLOGY/[place] [address] 06/05/2024 1:00 PM EST Hospital Encounter Hematology [place] [phone] 06/05/2024 2:00 PM EST Clinical Support Hematology [place] [phone] [facility] [place] [address] 06/26/2024 9:15 AM EST Laboratory Appointment Lab at [facility] Hematology Oncology [address] [place] [phone] 06/26/2024 10:30 AM EST Office Visit Hematology [place] [address] Albania Chahal MD [facility] HEMATOLOGY/[place] [address] 06/26/2024 12:00 PM EST Appointment Hematology [place] [address] 07/17/2024 9:30 AM EST Laboratory Appointment Lab at [facility] Hematology Oncology [address] [place] [phone] 07/17/2024 10:30 AM EST Office Visit Hematology [place] [address] Albania Chahal MD [facility] HEMATOLOGY[place] [address] 07/17/2024 12:00 PM EST Appointment Hematology [place] [phone] documented as of this encounter Visit Diagnoses Not on filedocumented in this encounter Care Teams Van Helper Relationship Specialty Start Date End Date America Caro MD [address] [place] [address] PCP - General Family Medicine 03/31/24 documented as of this encounter
--- OUTSIDE RECORDS SUMMARY | 2024-05-28 11:36 | XMS_ITS | Encounter Summary ---
Author Organization [facility] Address [facility] [place] [address] Care Team Providers Care Singer And Unloader Name Role Phone America Caro MD Primary Care Provider [phone] Encounter Details Date Type Department Care Team (Late st Contact Info) Description 04/24/2024 7:37 AM EDT Anesthesia [place] [address] Radha Arshad MD [facility] DR [place] [address] Anesthesia Record Procedure Summary Procedure Name Responsible [...] Type Details Placement Removal PIV 04/24/24; 721; tqls-mcg-oklzny catheter system; 20 gauge; median cubital vein [...] Dalton CRNA 04/24/24 08 by Joann Dalton LONG CHAIN DYEING MACHINE OPERATOR documented in this encounter Social History Tobacco Use Types Packs/Day Years Used Date Smoking Tobacco: Former Pipe Passive Smoke Exposure: Past Smokeless Tobacco: Never Comments:Smoke pipe for 10 y ears since 13 years old, Does still smoke pot but is slowing down. Passive Exposure Comments:Second hand smoke since 6937-2035 Alcohol Use Standard Drinks/Week Comments Yes 14 [...] Procedure Summary Date: 04/24/24 Room / [facility] Anesthesia Start: 736 Anesthesia Stop: 838 Procedure: BRONCH, W ENDOBRONCHIAL ULTRASOUND (EBUS) GUIDED SAMPLING, 3+ NODES (WRVU 4.96) Diagnosis: Lymphadenopathy (Lymphadenopathy/ Bronch with EBUS/ GA/ Bakcer) Surgeons: Andrea Freeman MD Responsible Provider: Radha Arshad MD Anesthesia Type: general ASA Status: 3 All Anesthesia Providers: Anesthesiologist: Radha Arshad MD LONG CHAIN DYEING MACHINE OPERATOR: Joann Dalton CRNA Vitals Value Taken Time BP 89/61 04/24/24 0900 Temp 36.4 ??C (97.5 ??F) 04/24/24 0835 Pulse Resp 20 04/24/24 0850 SpO2 92 % 04/24/24 0906 Pain Level 0 04/24/24 0850 Vitals shown include unfiled device data. Patient Location: PACU/[facility] Level of Consciousness: Awake and Alert Pain [...] Passive exposure: Past (Second hand smoke since 0023-8305) Smokeless tobacco: Never Tobacco comments: Smoke pipe [...] proceed. Radha Arshad MD Attending Anesthesiologist Pager [phone] 04/24/24 Informed Consent: Anesthetic plan and risks discussed with patient. Plan discussed with LONG CHAIN DYEING MACHINE OPERATOR and attending. Anesthesia Screening documented in this encounter Plan of Treatment Upcoming Encounters Date Type Department Care Team (Late st Contact Info) Description 05/30/2024 9:00 AM EST Infusion Hematology Oncology at [address] [phone] 06/05/2024 9:15 AM EST Laboratory Appointment Lab at [facility] Hematology Oncology [address] [place] [phone] 06/05/2024 10:30 AM EST Office Visit [place]ematology [place] [address] Albania Chahal MD [facility] HEMATOLOGY/[place] [address] 06/05/2024 1:00 PM EST Hospital Encounter [place]ematology [place] [address] 06/05/2024 2:00 PM EST Clinical Support [place]ematology [place] [address] [facility] [place] [address] 06/26/2024 9:15 AM EST Laboratory Appointment Lab at [facility] Hematology Oncology [address] [place] [phone] 06/26/2024 10:30 AM EST Office Visit [place]ematology [place] [address] Albania Chahal MD [facility] [address] [place] [address] 06/26/2024 12:00 PM EST Appointment [place]ematology [place] [address] 07/17/2024 9:30 AM EST Laboratory Appointment Lab at [facility] Hematology Oncology [address] [place] [phone] 07/17/2024 10:30 AM EST Office Visit Hematology [place] [address] Albania Chahal MD [facility] HEMATOLOGY[place] [address] 07/17/2024 12:00 PM EST Appointment [place]ematology [place] [address] documented as of this encounter [...] mg documented in this encounter Care Teams Singer And Unloader Relationship Specialty Start Date End Date America Caro MD [address] [place] [address] PCP - General Family Medicine 03/31/24 documented as of this encounter
--- OUTSIDE RECORDS SUMMARY | 2024-05-28 11:36 | XMS_ITS | Encounter Summary ---
Author Organization [facility] Address [facility] [place] [address] Care Team Providers Care Search Advertising Strategist Name Role Phone America Caro MD Primary Care Provider [phone] Encounter Details Date Type Department Care Team (Latest Contact Info) Description 04/24/2024 6:27 AM EDT - 04/24/2024 9:32 AM EDT Hospital Encounter [place] [address] BackerAndrea MD [facility] [place] [address] Discharge Disposition: Home Social History Tobacco Use Types Packs/Day Years Used Date Smoking Tobacco: Former Pipe Passive Smoke Exposure: Past Smokeless Tobacco: Never Comments:Smoke pipe for 10 y ears since 13 years old, Does still smoke pot but is slowing down. Passive Exposure Comments:Second hand smoke since 6202-6162 Alcohol Use Standard Drinks/Week Comments Yes 14 [...] your doctor if you can take an gqcv-vfm-qaqapbo medicine. If you think your pain medicine [...] more? Visit our health information library at [email or web address]. You can also view health information on [employer], your personal patient account. Log in or sign uptoday. Enter S288 in the search box to learn more about Bronchoscopy: What to Expect at Home. Current as of: December 22, 2018 Content Version: 12.2 ?? 3160-4008 [employer]. Care instructions adapted under license by [facility]. If you have questions about a medical condition or this instruction, always ask your healthcare professional. [employer] disclaims any warranty or liability for your [...] Section of Pulmonary & Critical Care Pager: [phone] documented in this encounter Miscellaneous Notes * [...] the procedure. Procedure Descriptions: Airway Examination: A [employer] EB-580S (5.3 mm) flexible bronchoscope was [...] [see below]). . EBUS-TBNA (4 sites): The [employer] EBUS (EB-530US) scope was inserted, lymph [...] Station 4L was <5 mm. Therapeutic Suctioning (18882): A significant portion of operative time was spent clearing out the airway of debris, blood and secretions prior to or during the intervention. Chest Ultrasound with Interpretation (76830/modifier 26): The patient was placed in a supine position and a bilateral lateral (limited) chest ljtne-pl-efnk ultrasound was performed. No pleural effusion was [...] Section of Pulmonary & Critical Care Pager: [phone] documented in this encounter Plan of Treatment Upcoming Encounters Date Type Department Care Team (Late st Contact Info) Description 05/30/2024 9:00 AM EST Infusion Hematology Oncology at [address] [phone] 06/05/2024 9:15 AM EST Laboratory Appointment Lab at [facility] Hematology Oncology [address] [place] [phone] 06/05/2024 10:30 AM EST Office Visit Hematology [place] [address] Albania Chahal MD [facility] HEMATOLOGY/[place] [address] 06/05/2024 1:00 PM EST Hospital Encounter Hematology and Oncology at [place] [phone] 06/05/2024 2:00 PM EST Clinical Support Hematology [place] [address] Aniya Saab, [facility] [place] [address] 06/26/2024 9:15 AM EST Laboratory Appointment Lab at [facility] Hematology Oncology [address] [place] [phone] 06/26/2024 10:30 AM EST Office Visit Hematology [place] [address] Albania Chahal MD [facility] HEMATOLOGY[place] [address] 06/26/2024 12:00 PM EST Appointment Hematology [place] [phone] 07/17/2024 9:30 AM EST Laboratory Appointment Lab at [facility] Hematology Oncology [address] [place] [phone] 07/17/2024 10:30 AM EST Office Visit Hematology [place] [phone] Albania Chahal MD [facility] DR CARTWRIGHT/[place] [address] 07/17/2024 12:00 PM EST Appointment Hematology [place] [phone] documented as of this encounter Procedures Procedure [...] THAN THYROID Routine 04/24/2024 8:22 AM EDT [facility] Ebus Guided Sampl 3/> Node Station/Strux (67756) 04/24/2024 7:37 AM EDT Lymphadenopathy documented in this encounter Results * (ABNORMAL) Cytology FNA (04/24/2024 8:22 AM EDT) Case Report Medical Cytology Report ? Case: [id number] ? Authorizing Provider: ??Andrea Freeman MD ? Collected: ? 04/24/2024 0822 ? Ordering Location: ? Gastroenterology at [facility] ?? Received: ?04/24/2024 0843 ? Pathologist: ? Kedar Connor MD ? Specimen: ?Lung, Left Lower Lobe ? 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 Cell block was examined. See note. Note: The malignant cells have high nuclear to cytoplasmic ratios, hyperchromatic chromatin and occasional nucleoli and pseudoinclusions. By immunohistochemistry they show strong expression for keratin (GCQGW461) and squamous markers (p40, CK5) with patchy, [...] process. Clinical and radiological correlation is recommended. 10:07 AM [facility] Specimen Adequacy Satisfactory for evaluation. 10:07 AM [facility] Addendum 2 Additional immunohistochemical testing reveals that the malignant cells are positive for PAX8 and CD117 and negative for CD5. 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 10:07 AM [facility] Addendum electronically signed by Kedar Connor MD on 05/27/2024 at 10:07 AM Addendum PD-L1 Report Tissue: Lung, Left Lower [...] The assay was performed according to the professor of fine art's instructions using Anti-PD-L1 (22C3, pharmDX) antibody. 10:07 AM [facility] Addendum electronically signed by Kedar Connor MD on 05/14/2024 at 1:14 PM Additional Studies Task ID IHC/Special Stains Result A1-2 TTF1 Negative A1-3 p40 Positive A1-4 Synaptophysin Rare, weak positive A1-5 INSM1 Patchy positive A1-6 CD45 Negative A1-7 Ki-67 Positive >70% A1-8 [id number] Positive A1-9 RB1 Rare positive A1-10 Chromogranin A Rare, weak positive A1-11 CK5 Positive A1-12 NUT Negative A1-13 p16 Positive 10:07 AM [facility] Disclaimer(s) Formalin-fixed, paraffin-embedded tissue [...] morphology, histopathological criteria and other diagnostic tests. 10:07 AM [facility] Clinical Information 68 y.o with mediastinal mass 10:07 AM [facility] Gross Description Received in formalin, approximately 20 mL total volume of cloudy, red fluid with clots. Total preparation: Cell Block: 1. 10:07 AM EST [facility] Result Note THIS RESULT REQUIR ES PHYSICIAN/MARVIN FOLLOW UP(A) 10:07 AM EST [facility] Fine Needle Aspirate STRUCTURE OF LOWER LOBE OF LEFT LUNG / Unknown Non Blood Collection / Unknown 04/24/2024 8:22 AM EDT 04/24/2024 8:43 AM EDT Andrea Freeman MD PATHOLOGY/CYTOLOGY O RDERABLES [facility] [place] [address] * (ABNORMAL) Cytology FNA (04/24/2024 8:22 AM EDT) Case Report Medical Cytology Report ? Case: [id number] ? Authorizing Provider: ??Andrea Freeman MD ? Collected: ? 04/24/2024821 ? Ordering Location: ? Gastroenterology at [facility] ?? Received: ?04/24/2024842 ? Pathologist: ? Kedar Connor MD ? Specimen: ?Lymph Node, Station 7 ? 05/01/2024 12:53 PM EDT [facility] Specimen Source Lymph Node, Station 7, EBUS-guided FNA 05/01/2024 12:53 PM EDT [facility] Final Diagnosis Positive for malignancy 05/01/2024 12:53 PM EDT [facility] Diagnosis Discussion Poorly differentiated carcinoma. See [id number] for complete characterization. Cell block was examined. 05/01/2024 12:53 PM EDT [facility] Specimen Adequacy Satisfactory for evaluation. 05/01/2024 12:53 PM EDT [facility] Clinical Information 68 y.o with mediastinal mass 05/01/2024 12:53 PM EDT [facility] Gross Description Received in formalin, approximately 20 mL total volume of cloudy, pink fluid with clots. Total preparation: Cell Block: 1. 05/01/2024 12:53 PM EDT [facility] Result Note THIS RESULT REQUIRES PHYSICIAN/MARVIN FOLLOW UP(A) 05/01/2024 12:53 PM EDT [facility] Fine Needle Aspirate (Lymph Node, Station 7) Non Blood Collection / Unknown 04/24/2024 8:22 AM EDT 04/24/2024 8:43 AM EDT Andrea Freeman MD PATHOLOGY/CYTOLOGY O RDERABLES [facility] [address] * (ABNORMAL) Cytology FNA (04/24/2024 8:22 AM EDT) Case Report Medical Cytology Report ? Case: [id number] ? Authorizing Provider: ??Andrea Freeman MD ? Collected: ? 04/24/2024821 ? Ordering Location: ? Gastroenterology at [facility] ?? Received: ?04/24/202445 ? Pathologist: ? Kedar Connor MD ? Specimen: ?Lymph Node, Station 4R ? 05/01/2024 12:57 PM EDT [facility] Specimen Source Lymph Node, Station 4R, EBUS-guided FNA 05/01/2024 12:57 PM EDT [facility] Final Diagnosis Suspicious for malignancy 05/01/2024 12:57 PM EDT [facility] Diagnosis Discussion There is a single cluster of highly atypical epithelioid cells which are morphologically similar to the malignant cells see in [id number]. The background contains lymphoid tissue. Cell block was examined. 05/01/2024 12:57 PM EDT [facility] Specimen Adequacy Satisfactory for evaluation. 05/01/2024 12:57 PM EDT [facility] Clinical Information 68 y.o with mediastinal mass 05/01/2024 12:57 PM EDT [facility] Gross Description Received in formalin, approximately 25 mL total volume of clear, pink fluid with clots. Total preparation: Cell Block: 1. 05/01/2024 12:57 PM EDT [facility] Result Note THIS RESULT REQUIRES PHYSICIAN/MARVIN FOLLOW UP(A) 05/01/2024 12:57 PM EDT [facility] Fine Needle Aspirate (Lymph Node, Station 4R) Non Blood Collection / Unknown 04/24/2024 8:22 AM EDT 04/24/2024 8:45 AM EDT Andrea Freeman MD PATHOLOGY/CYTOLOGY O RDERABLES Performing Organization Address City/State/[facility] Co de Phone Number [facility] [place] [address] * Cytology FNA (04/24/2024 8:22 AM EDT) Case Report Medical Cytology Report ? Case: [id number] ? Authorizing Provider: ??Andrea Freeman MD ? Collected: ? 04/24/2024821 ? Ordering Location: ? Gastroenterology at [facility] ?? Received: ?04/24/202444 ? Pathologist: ? Kedar Connor MD ? Specimen: ?Lymph Node, Station 11R ? 05/01/2024 12:54 PM EDT [facility] Specimen Source Lymph Node, Station 11R, EBUS-guided FNA 05/01/2024 12:54 PM EDT [facility] Final Diagnosis Negative for malignancy 05/01/2024 12:54 PM EDT [facility] Diagnosis Discussion Consistent with benign lymph node sampling. Cell block was examined. 05/01/2024 12:54 PM EDT [facility] Specimen Adequacy Satisfactory for evaluation. 05/01/2024 12:54 PM EDT [facility] Clinical Information 68 y.o with mediastinal mass 05/01/2024 12:54 PM EDT [facility] Gross Description Received in formalin, approximately 20 mL total volume of cloudy, red fluid with clots. Total preparation: Cell Block: 1. 05/01/2024 12:54 PM EDT [facility] Result Note Routine 05/01/2024 12:54 PM EDT [facility] Fine Needle Aspirate (Lymph Node, Station 11R) Non Blood Collection / Unknown 04/24/2024 8:22 AM EDT 04/24/2024 8:44 AM EDT Andrea Freeman MD PATHOLOGY/CYTOLOGY O RDERABLES [facility] [place] [address] * Immunophenotyping Flow Cytometry (04/24/2024 8:22 AM EDT) Final Diagnosis - No phenotypically abnormal T-cell population detected, limited number of B-cells for assessment (see Comment). 04/25/2024 11:54 AM EDT [facility] Signing Pathologist This result has been reviewed by Misbah Hand DO on 04/25/24 at 11:54 AM. 04/25/2024 11:54 AM [facility] Discussion Flow cytometry does not detect certain hematolymphoid malignancies and non-hematolymphoid malignancies. Correlation with pending morphology from the biopsy is recommended. 04/25/2024 11:54 AM [facility] Interpretation B-cells were less than 30 in number, too few for adequate assessment. 04/25/2024 11:54 AM [facility] Lymphocyte % 15.0 % 04/25/2024 11:54 AM [facility] CD3+ % 52.0 % 04/25/2024 11:54 AM [facility] CD19+ % 1.0 % 04/25/2024 11:54 AM [facility] CD56+ % 43.0 % 04/25/2024 11:54 AM [facility] B-Cell:T-Cell Ratio 0.0 04/25/2024 11:54 AM [facility] [place]:Lambda Ratio 1.6 04/25/2024 11:54 AM [facility] CD4:CD8 Ratio 1.0 04/25/2024 11:54 AM [facility] Cell Viability % 68.2 % 04/25/20 11:54 AM [facility] Specimen Processing Cells for immunophenotypic analysis were derived from lung fine needle biopsy. The following markers were assessed: CD2, CD3, CD4, CD5, CD7, CD8, CD10, CD19, CD45, CD56, kappa light chain, and lambda light chain. 04/25/2024 11:54 AM [facility] Disclaimer Flow analysis is an ancillary study. A definite diagnosis requires correlation with the morphologic features of this process and if necessary, correlation with other ancillary studies like immunohistochemist ry, enzyme cytochemistry and/or cyto/molecular genetics. This test was developed and its performance characteristics determined by the Clinical Flow Cytometry Laboratory at [facility]. It has not been cleared or [...] complexity clinical laboratory testing. 04/25/2024 11:54 AM EDT [facility] Clinical Information Lung nodules 04/25/2024 11:54 AM EDT [facility] Fine Needle Aspirate STRUCTURE OF LOWER LOBE OF LEFT LUNG / Unknown Non Blood Collection / Unknown 04/24/2024 8:22 AM EDT 04/24/2024 8:42 AM EDT Andrea Freeman MD HEMATOLOGY ORDERABLE S [facility] [place] [address] documented in this encounter Visit Diagnoses Not [...] 04/24/24 at 0900, Endoscopy (Day of Procedure) 07 (New Bag - Prov ider: Rosamaria Garcia RN)0733 (Paused - Provider: Joann Dalton CRNA - Comment: Switch to gravity)0734 (Restarted - Provider: Joann Dalton CRNA)0808 (Anesthesia Volume Adjustment - Provider: Joann Dalton CRNA)0819 (Anesthesia Volume Adjustment - Provider: Joann Dalton CRNA) documented in this encounter Care Teams Search Advertising Strategist Relationship Specialty Start Date End Date America Caro MD [address] [place] [id number] PCP - General Family Medicine 03/31/24 documented as of this encounter
--- OUTSIDE RECORDS SUMMARY | 2024-05-28 11:36 | XMS_ITS | Encounter Summary ---
Author Organization [facility] [address] Care Team Providers Care Centerless Grinder Tender Name Role Phone America Caro MD Primary Care Provider [phone] Encounter Details Date Type Department Care Team (Late Contact Info) Description 04/22/2024 Telephone [place] [phone] Kaela Zayas Social History Tobacco Use Types Packs/Day Years Used Date Smoking Tobacco: Former Pipe Passive Smoke Exposure: Past Smokeless Tobacco: Never Comments:Smoke pipe for 10 y ears since 13 years old, Does still smoke pot but is slowing down. Passive Exposure Comments:Second hand smoke since 9424-7191 Sex and Gender Information Value Date Recorded Sex Assigned at Not on file Gender Identity Not on file Sexual Orientation Not on file documented as of this encounter Plan of Treatment Upcoming Encounters Date Type Department Care Team ([facility] Contact Info) Description 05/30/2024 9:00 AM EST Infusion Hematology Oncology at [address] [phone] 06/05/2024 9:15 AM EST Laboratory Appointment Lab at [facility] Hematology Oncology [address] [place] [phone] 06/05/2024 10:30 AM EST Office Visit Hematology [place] [phone] Albania Chahal MD [facility] HEMATOLOGY/[place], [place] [phone] 06/05/2024 1:00 PM EST Hospital Encounter Hematology and Oncology at [place] [address] 06/05/2024 2:00 PM EST Clinical Support Hematology and Oncology at [place] [address] Aniya Saab, [facility] [place] [address] 06/26/2024 9:15 AM EST Laboratory Appointment Lab at [facility] Hematology Oncology [address] [place], [place] [phone] 06/26/2024 10:30 AM EST Office Visit Hematology and Oncology at [place] [phone] Albania Chahal MD [facility] HEMATOLOGY/[place] [address] 06/26/2024 12:00 PM EST Appointment Hematology [place] [phone] 07/17/2024 9:30 AM EST Laboratory Appointment Lab at [facility] Hematology Oncology [address] [place] [phone] 07/17/2024 10:30 AM EST Office Visit Hematology [place] [address] Albania Chahal MD [facility] HEMATOLOGY/[place] [address] 07/17/2024 12:00 PM EST Appointment Hematology [place] [phone] documented as of this encounter Visit Diagnoses Not on filedocumented in this encounter Care Teams Centerless Grinder Tender Relationship Specialty Start Date End Date America Caro MD [address] [place] [id number] PCP - General Family Medicine 03/31/24 documented as of this encounter
--- OUTSIDE RECORDS SUMMARY | 2024-05-28 11:36 | XMS_ITS | Encounter Summary ---
Author Organization [facility] [place] [address] Care Team Providers Care Bander And Cellophaner Helper Machine Name Role Phone America Caro MD Primary Care Provider [phone] Encounter Details Date Type Department Care Team (Late st Contact Info) Description 04/21/2024 [place] [address] Andrea Freeman MD [facility] [place] [address] Social History Tobacco Use Types Packs/Day Years Used Date Smoking Tobacco: Former Pipe Passive Smoke Exposure: Past Smokeless Tobacco: Never Comments:Smoke pipe for 10 y ears since 13 years old, Does still smoke pot but is slowing down. Passive Exposure Comments:Second hand smoke since 4514-5692 Sex and Gender Information Value Date Recorded [...] suspect malignant pericardial effusion (seeing cardiology at [facility] for this) and that if his dyspnea [...] questions which were answered to his liking. Adnrea Freeman MD, 04/21/2024, 1:19 PM Interventional Pulmonology Section of Pulmonary & Critical Care Pager: [phone] documented in this encounter Plan of Treatment Upcoming Encounters Date Type Department Care Team (Late st Contact Info) Description 05/30/2024 9:00 AM EST Infusion Hematology Oncology at [address] [phone] 06/05/2024 9:15 AM EST Laboratory Appointment Lab at [facility] Hematology Oncology [address] [place] [phone] 06/05/2024 10:30 AM EST Office Visit [place]ematology [place] [address] Albania Chahal MD [facility] HEMATOLOGY/[place] [address] 06/05/2024 1:00 PM EST Hospital Encounter [place]ematology [place] [address] 06/05/2024 2:00 PM EST Clinical Support [place]ematology [place] [address] Aniya Saab, [facility] [place] [address] 06/26/2024 9:15 AM EST Laboratory Appointment Lab at [facility] Hematology Oncology [address] [place] [phone] 06/26/2024 10:30 AM EST Office Visit Hematology and Oncology at [place] [phone] Albania Chahal MD [facility] [place]OLOGY/[place] [address] 06/26/2024 12:00 PM EST Appointment [place]ematology [place] [address] 07/17/2024 9:30 AM EST Laboratory Appointment Lab at [facility] Hematology Oncology [address] [place] [phone] 07/17/2024 10:30 AM EST Office Visit [place]ology [place] [address] Albania Chahal MD [facility] HEMATOLOGY/[place] [address] 07/17/2024 12:00 PM EST Appointment [place]ematology [place] [phone] documented as of this encounter Visit Diagnoses Not on filedocumented in this encounter Care Teams Bander And Cellophaner Helper Machine Relationship Specialty Start Date End Date America Caro MD [address] [place] [address] PCP - General Family Medicine 03/31/24 documented as of this encounter
--- OUTSIDE RECORDS SUMMARY | 2024-05-28 11:36 | XMS_ITS | Encounter Summary ---
Author Organization [facility] Address [facility] [place] [address] Care Team Providers Care Research Soil Scientist Name Role Phone America Caro MD Primary Care Provider [phone] Encounter Details Date Type Department Care Team (Late st Contact Info) Description 04/24/2024 7:30 AM EDT - 04/24/2024 8:40 AM EDT Surgery [place] [address] BackerAndrea MD [facility] [place] [address] BRONCH, W ENDOBRONCHIAL ULTRASOUND (EBUS) GUIDED SAMPLING, 3+ NODES (WRVU 4.96) Social History Tobacco Use Types Packs/Day Years Used Date Smoking Tobacco: Former Pipe Passive Smoke Exposure: Past Smokeless Tobacco: Never Comments:Smoke pipe for 10 y ears since 13 years old, Does still smoke pot but is slowing down. Passive Exposure Comments:Second hand smoke since 5577-0733 Alcohol Use Standard Drinks/Week Comments Yes 14 [...] your doctor if you can take an ptvv-rxl-xacmiib medicine. If you think your pain medicine [...] more? Visit our health information library at [email or web address]. You can also view health information on [employer], your personal patient account. Log in or sign uptoday. Enter S288 in the search box to learn more about Bronchoscopy: What to Expect at Home. Current as of: December 22, 2018 Content Version: 12.2 ?? 8926-0248 [employer]. Care instructions adapted under license by [facility]. If you have questions about a medical condition or this instruction, always ask your healthcare professional. [employer] disclaims any warranty or liability for your [...] Section of Pulmonary & Critical Care Pager: [phone] documented in this encounter Miscellaneous Notes * [...] the procedure. Procedure Descriptions: Airway Examination: A Prosetta EB-580S (5.3 mm) flexible bronchoscope was used [...] [see below]). . EBUS-TBNA (4 sites): The Prosetta EBUS (EB-530US) scope was inserted, lymph node [...] Station 4L was <5 mm. Therapeutic Suctioning (93417): A significant portion of operative time was spent clearing out the airway of debris, blood and secretions prior to or during the intervention. Chest Ultrasound with Interpretation (89902/modifier 26): The patient was placed in a supine position and a bilateral lateral (limited) chest sjuyc-dd-qfko ultrasound was performed. No pleural effusion was [...] Section of Pulmonary & Critical Care Pager: [phone] documented in this encounter Plan of Treatment Upcoming Encounters Date Type Department Care Team (Late st Contact Info) Description 05/30/2024 9:00 AM EST Infusion Hematology Oncology at [address] [phone] 06/05/2024 9:15 AM EST Laboratory Appointment Lab at [facility] Hematology Oncology [address] [place] [phone] 06/05/2024 10:30 AM EST Office Visit Hematology [place] [address] Albania Chahal MD [facility] HEMATOLOGY/[place] [address] 06/05/2024 1:00 PM EST Hospital Encounter Hematology [place] [phone] 06/05/2024 2:00 PM EST Clinical Support Hematology [place] [phone] Aniya Saab RD [facility] [place] [place] [address] 06/26/2024 9:15 AM EST Laboratory Appointment Lab at [facility] Hematology Oncology [address] [place] [phone] 06/26/2024 10:30 AM EST Office Visit Hematology [place] [address] Albania Chahal MD [facility] DR CARTWRIGHT/[place] [address] 06/26/2024 12:00 PM EST Appointment Hematology [place] [address] 07/17/2024 9:30 AM EST Laboratory Appointment Lab at [facility] Hematology Oncology [address] [place] [phone] 07/17/2024 10:30 AM EST Office Visit Hematology [place] [address] Albania Chahal MD [facility] DR CARTWRIGHT/[place] [address] 07/17/2024 12:00 PM EST Appointment Hematology [place] [phone] documented as of this encounter Procedures Procedure [...] THAN THYROID Routine 04/24/2024 8:22 AM EDT [facility] Ebus Guided Sampl 3/> Node Station/Strux (36560) 04/24/2024 7:37 AM EDT Lymphadenopathy documented in this encounter Results * (ABNORMAL) Cytology FNA (04/24/2024 8:22 AM EDT) Case Report Medical Cytology Report ? Case: [id number] ? Authorizing Provider: ??Andrea Freeman MD ? Collected: ? 04/24/2024 0822 ? Ordering Location: ? Gastroenterology at [facility] ?? Received: ?04/24/2024 0843 ? Pathologist: ? Kedar Connor MD ? Specimen: ?Lung, Left Lower Lobe ? 10:07 AM [facility] Specimen Source Lung, Left Lower Lobe, EBUS-guided FNA 10:07 AM [facility] Final Diagnosis Positive for malignancy 10:07 AM 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 Cell block was examined. See note. Note: The malignant cells have high nuclear to cytoplasmic ratios, hyperchromatic chromatin and occasional nucleoli and pseudoinclusions. By immunohistochemistry they show strong expression for keratin ([id number]) and squamous markers (p40, CK5) with patchy, [...] and radiological correlation is recommended. 10:07 AM [facility] Specimen Adequacy Satisfactory for evaluation. 10:07 AM [facility] Addendum 2 Additional immunohistochemical testing reveals that the malignant cells are positive for PAX8 and CD117 and negative for CD5. 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 10:07 AM [facility] Addendum electronically signed by Kedar [...] The assay was performed according to the applique cutter's instructions using Anti-PD-L1 (22C3, pharmDX) antibody. 10:07 AM [facility] Addendum electronically signed by Kedar Connor MD on 05/14/2024 at 1:14 PM Additional Studies Task ID IHC/Special Stains Result A1-2 TTF1 Negative A1-3 p40 Positive A1-4 Synaptophysin Rare, weak positive A1-5 INSM1 Patchy positive A1-6 CD45 Negative A1-7 Ki-67 Positive >70% A1-8 [id number] Positive A1-9 RB1 Rare positive A1-10 Chromogranin A Rare, weak positive A1-11 CK5 Positive A1-12 NUT Negative A1-13 p16 Positive 10:07 AM [facility] Disclaimer(s) Formalin-fixed, paraffin-embedded tissue sections [...] criteria and other diagnostic tests. 10:07 AM [facility] Clinical Information 68 y.o with mediastinal mass 10:07 AM [facility] Gross Description Received in formalin, approximately 20 mL total volume of cloudy, red fluid with clots. Total preparation: Cell Block: 1. 4 10:07 AM [facility] Result Note THIS RESULT REQUIR ES PHYSICIAN/MARVIN FOLLOW UP(A) 10:07 AM [facility] Fine Needle Aspirate STRUCTURE OF LOWER LOBE OF LEFT LUNG / Unknown Non Blood Collection / Unknown 04/24/2024 8:22 AM EDT 04/24/2024 8:43 AM EDT Andrea Freeman MD PATHOLOGY/CYTOLOGY O RDERABLES Performing Organization Address City/State/[facility] Co de Phone Number [facility] [place] [address] * (ABNORMAL) Cytology FNA (04/24/2024 8:22 AM EDT) Case Report Medical Cytology Report ? Case: [id number] ? Authorizing Provider: ??Andrea Freeman MD ? Collected: ? 04/24/2024821 ? Ordering Location: ? Gastroenterology at [facility] ?? Received: ?04/24/2024842 ? Pathologist: ? Kedar Connor MD ? Specimen: ?Lymph Node, Station 7 ? 05/01/2024 12:[address] [facility] Specimen Source Lymph Node, Station 7, EBUS-guided FNA 05/01/2024 12:[address] [facility] Final Diagnosis Positive for malignancy 05/01/2024 12:[address] [facility] Diagnosis Discussion Poorly differentiated carcinoma. See [id number] for complete characterization. Cell block was examined. [...] PATHOLOGY/CYTOLOGY O RDERABLES [facility] [place] [address] * (ABNORMAL) Cytology FNA (04/24/2024 8:22 AM EDT) Case Report Medical Cytology Report ? Case: [id number] ? Authorizing Provider: ??Andrea Freeman MD ? Collected: ? 04/24/2024 0822 ? Ordering Location: ? Gastroenterology at [facility] ?? Received: ?04/24/2024 0845 ? Pathologist: ? Kedar Connor MD ? Specimen: ?Lymph Node, Station 4R ? 05/01/2024 12:[address] [facility] Specimen Source Lymph Node, Station 4R, EBUS-guided FNA 05/01/2024 12:[address] [facility] Final Diagnosis Suspicious for malignancy 05/01/2024 12:[address] [facility] Diagnosis Discussion There is a single cluster of highly atypical epithelioid cells which are morphologically similar to the malignant cells see in [id number]. The background contains lymphoid tissue. Cell block was examined. 05/01/2024 12:[address] [facility] Specimen Adequacy Satisfactory for evaluation. 05/01/2024 12:[address] [facility] Clinical Information 68 y.o with mediastinal mass 05/01/2024 12:[address] [facility] Gross Description Received in formalin, approximately 25 mL total volume of clear, pink fluid with clots. Total preparation: Cell Block: 1. 05/01/2024 12:[address] [facility] Result Note THIS RESULT REQUIRES PHYSICIAN/MARVIN FOLLOW UP(A) 05/01/2024 12:[address] [facility] Fine Needle Aspirate (Lymph Node, Station 4R) Non Blood Collection / Unknown 04/24/2024 8:22 AM EDT 04/24/2024 8:45 AM EDT Andrea Freeman MD PATHOLOGY/CYTOLOGY O RDERABLES Performing Organization Address City/State/[facility] Co de Phone Number [facility] [place] [address] * Cytology FNA (04/24/2024 8:22 AM EDT) Case Report Medical Cytology Report ? Case: [id number] ? Authorizing Provider: ??Andrea Freeman MD ? Collected: ? 04/24/2024821 ? Ordering Location: ? Gastroenterology at [facility] ?? Received: ?04/24/202444 ? Pathologist: ? Kedar [...] PATHOLOGY/CYTOLOGY O RDERABLES [facility] [place] [address] * Immunophenotyping Flow Cytometry (04/24/2024 8:22 AM EDT) Final Diagnosis - No phenotypically abnormal T-cell population detected, limited number of B-cells for assessment (see Comment). 04/25/2024 11:[address] [facility] Signing Pathologist This result has been reviewed by Misbah Hand DO on 04/25/24 at 11:54 AM. 04/25/2024 11:54 AM [facility] Discussion Flow cytometry does not detect certain hematolymphoid malignancies and non-hematolymphoid malignancies. Correlation with pending morphology from the biopsy is recommended. 04/25/2024 11:54 AM [facility] Interpretation B-cells were less than 30 in number, too few for adequate assessment. 04/25/2024 11:54 AM [facility] Lymphocyte % 15.0 % 04/25/2024 11:54 AM [facility] CD3+ % 52.0 % 04/25/2024 11:54 AM [facility] CD19+ % 1.0 % 04/25/2024 11:54 AM [facility] CD56+ % 43.0 % 04/25/2024 11:54 AM [facility] B-Cell:T-Cell Ratio 0.0 04/25/2024 11:54 AM [facility] [place]:Lambda Ratio 1.6 04/25/2024 11:54 AM [facility] CD4:CD8 Ratio 1.0 04/25/2024 11:54 AM [facility] Cell Viability % 68.2 % 04/25/20 11:54 AM [facility] Specimen Processing Cells for immunophenotypic analysis were derived from lung fine needle biopsy. The following markers were assessed: CD2, CD3, CD4, CD5, CD7, CD8, CD10, CD19, CD45, CD56, kappa light chain, and lambda light chain. 04/25/2024 11:54 AM [facility] Disclaimer Flow analysis is an ancillary study. A definite diagnosis requires correlation with the morphologic features of this process and if necessary, correlation with other ancillary studies like immunohistochemist ry, enzyme cytochemistry and/or cyto/molecular genetics. This test was developed and its performance characteristics determined by the Clinical Flow Cytometry Laboratory at [facility]. It has not been cleared or [...] clinical laboratory testing. 04/25/2024 11:[address] [facility] Clinical Information Lung nodules 04/25/2024 11:[address] [facility] Fine Needle Aspirate STRUCTURE OF LOWER LOBE OF LEFT LUNG / Unknown Non Blood Collection / Unknown 04/24/2024 8:22 AM EDT 04/24/2024 8:42 AM EDT Andrea Freeman MD HEMATOLOGY ORDERABLE S Performing Organization Address City/State/[facility] Co de Phone Number [facility] [place] [address] documented in this encounter Visit Diagnoses Diagnosis [...] CRNA) documented in this encounter Care Teams Research Soil Scientist Relationship Specialty Start Date End Date America Caro MD [address] [place] [address] PCP - General Family Medicine 03/31/24 documented as of this encounter
--- OUTSIDE RECORDS SUMMARY | 2024-05-28 11:37 | XMS_ITS | Encounter Summary ---
Author Organization [facility] Address [facility] [place] [address] Care Team Providers Care Sports Intern Name Role Phone America Caro MD Primary Care Provider [phone] Encounter Details Date Type Department Care Team (Latest Contact Info) Description 04/16/2024 12:45 PM EDT - 04/16/2024 11:59 PM EDT Hospital Encounter XRay at [address] [place] [address] Seven Saha MD [facility] [address] Pleural effusion, bilateral Discharge Disposition: Home Social History Tobacco Use Types Packs/Day Years Used Date Smoking Tobacco: Former Pipe Passive Smoke Exposure: Past Smokeless Tobacco: Never Comments:Smoke pipe for 10 y ears since 13 years old, Does still smoke pot but is slowing down. Passive Exposure Comments:Second hand smoke since 3078-9620 Sex and Gender Information Value Date Recorded [...] AM EST Infusion Hematology Oncology at [address] [phone] 06/05/2024 9:15 AM EST Laboratory Appointment Lab at [facility] Hematology Oncology [address] [place] [phone] 06/05/2024 10:30 AM EST Office Visit Hematology [place] [address] Albania Chahal MD [facility] HEMATOLOGY/[place] [address] 06/05/2024 1:00 PM EST Hospital Encounter Hematology [place] [address] 06/05/2024 2:00 PM EST Clinical Support [place]ematology [place] [address] Aniya Saab, [facility] [place] [address] 06/26/2024 9:15 AM EST Laboratory Appointment Lab at [facility] Hematology Oncology [address] [place] [phone] 06/26/2024 10:30 AM EST Office Visit [place]ematology [place] [address] Albania Chahal MD [facility] DR CARTWRIGHT/[place] [address] 06/26/2024 12:00 PM EST Appointment Hematology [place] [address] 07/17/2024 9:30 AM EST Laboratory Appointment Lab at [facility] Hematology Oncology [address] [place] [phone] 07/17/2024 10:30 AM EST Office Visit [place]ematology [place] [address] Albania Chahal MD [facility] HEMATOLOGY/[place] [address] 07/17/2024 12:00 PM EST Appointment Hematology [place] [address] documented as of this encounter Procedures Procedure Name Priority Date/Time Associated Diagnosis Comments XR CHEST PA AND LATERAL Routine 04/16/2024 1:08 PM EDT Pleural effusion, bilateral documented in this encounter Results * XR Chest PA & Lateral (Generic) (04/16/2024 1:08 PM EDT) WORKSTATION ID [id number] RAD Anatomical Region Laterality Modality Chest N/A Digital Radiogra phy Impressions 04/16/2024 1:44 PM EDT Trace posterior pleural effusions. No pneumothorax. Thank you for letting us participate in the care of this patient. ??If you are a health care provider and have any questions regarding this report, please contact the number below. ??For patients who have questions please contact the health critical care educator that requested your imaging first. ? Electronically signed by: JOSE ROBERTO FRANCES MD, [facility] ([phone]), at 04/16/2024 1:44 PM Narrative 04/16/2024 1:44 [...] the lung bases. Procedure Note Jose Roberto Frances MD - 04/16/2024 EXAMINATION: XR CHEST PA [...] patients who have questions please contactthe health critical care educator that requested your imaging first. Electronically signed by: JOSE ROBERTO FRANCES MD, [facility]([phone]), at 04/16/2024 1:44 PM Seven Saha MD IMG DX ORDERABLES documented in this encounter Visit Diagnoses Diagnosis Pleural effusion, bilateral Unspecified pleural effusion documented in this encounter Care Teams Sports Intern Relationship Specialty Start Date End Date America Caro MD [address] [place] [address] PCP - General Family Medicine 03/31/24 documented as of this encounter
--- OUTSIDE RECORDS SUMMARY | 2024-05-28 11:37 | XMS_ITS | Encounter Summary ---
Author Organization [facility] Address [facility] [place] [address] Care Team Providers Care Casting Inspector Name Role Phone America Caro MD Primary Care Provider [phone] Reason for Visit * Reason Comments Establish Care * Consultation (Urgent) - Authorized Specialty Diagnoses / Procedures Referred By Contac t Referred To Contact Pulmonology Diagnoses Other nonspecific abnormal finding of lung field Multiple lung nodules America Caro MD [address] [place] [address] [facility] Pulmonology [address] [place] [phone] Referral ID Status Reason Start Date Expiration Date Visits Requested Visits Authorized [id number] Authorized Consult, Test & Treat PCP Updated and/or Approved 03/31/2024 03/30/2025 6 6 Encounter Details Date Type Department Care Team (Late st Contact Info) Description 04/16/2024 10:40 AM EDT Office [place] [phone] Andrea Freeman MD [facility] [place] [address] Pleural effusion, bilateral (Primary Dx); Laboratory procedure Social History Tobacco Use Types Packs/Day Years Used Date Smoking Tobacco: Former Pipe Passive Smoke Exposure: Past Smokeless Tobacco: Never Tobacco Cessation:Counseling Given: Not Answered Comments:Smoke pipe for 10 years since 13 years old, Does still smoke pot but is slowing down. Passive Exposure Comments:Second hand smoke since [id number] Sex and Gender Information Value Date Recorded [...] NAME: Henry Javier : 1955 MEDICAL RECORD: [id number] PRIMARY CARE PHYSICIAN: America Caro MD REFERRING [place]ER: [place] [address] I have been asked to see Henry [...] acute chest pain prompting ED presentaiton to [facility]. He underwent cardiac eval and CXR which [...] or prior radiation. 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 Denies carcinogenic exposure occupationally. 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 Procedure Descriptions: Thoracentesis with Ultrasound Guidance (78824): The patient was placed in an upright [...] a post-procedure radiograph has been ordered. The [employer] Pleura-Seal thoracentesis kit was used for this [...] Care Pager: [phone] documented in this encounter Plan of Treatment Upcoming Encounters Date Type Department Care Team (Late st Contact Info) Description 05/30/2024 9:00 AM EST Infusion Hematology Oncology at [address] [phone] 06/05/2024 9:15 AM EST Laboratory Appointment Lab at [facility] Hematology Oncology [address] [place] [phone] 06/05/2024 10:30 AM EST Office Visit Hematology [place] [address] Albania Chahal MD [facility] HEMATOLOGY/[place] [address] 06/05/2024 1:00 PM EST Hospital Encounter Hematology [place] [phone] 06/05/2024 2:00 PM EST Clinical Support Hematology [place] [phone] Aniya Saab, [facility] [place] [address] 06/26/2024 9:15 AM EST Laboratory Appointment Lab at [facility] Hematology Oncology [address] [place] [phone] 06/26/2024 10:30 AM EST Office Visit Hematology [place] [phone] Albania Chahal MD [facility] HEMATOLOGY/[place] [address] 06/26/2024 12:00 PM EST Appointment Hematology [place] [phone] 07/17/2024 9:30 AM EST Laboratory Appointment Lab at [facility] Hematology Oncology [address] [place] [phone] 07/17/2024 10:30 AM EST Office Visit Hematology [place] [address] Albania Chahal MD [facility] [place] [address] 07/17/2024 12:00 PM EST Appointment Hematology [place] [address] documented as of this encounter Procedures Procedure Name Priority Date/Time Associated Diagnosis Comments IMMUNOPHENOTYPING FLOW CYTOMETRY (NON-BLOOD) Routine 04/16/2024 11:45 AM EDT Pleural effusion, bilateral PATHOLOGY FLUID REVIEW Routine 11:45 AM EDT Pleural effusion, bilateral CELL COUNT PULMONARY FLUID (MH) Routine 04/16/2024 11:45 AM EDT Pleural effusion, [...] 11:45 AM EDT Pleural effusion, bilateral CYTOLOGY NON-LINE CREWMAN Routine 04/16/2024 10:5 2 AM EDT Pleural effusion, bilateral documented in this encounter Results * XR Chest PA & Lateral (Generic) (04/16/2024 1:08 PM EDT) WORKSTATION ID [id number] DH RAD Anatomical Region Laterality Modality Chest N/A Digital Radiogra phy Impressions 04/16/2024 1:44 PM EDT Trace posterior pleural effusions. No pneumothorax. Thank you for letting us participate in the care of this patient. ??If you are a health care provider and have any questions regarding this report, please contact the number below. ??For patients who have questions please contact the health customer care team coach that requested your imaging first. ? Electronically signed by: JOSE ROBERTO CHAPIN MD, [facility] ([phone]), at 04/16/2024 1:44 PM Narrative 04/16/2024 1:44 [...] patients who have questions please contactthe health customer care team coach that requested your imaging first. Electronically signed by: JOSE ROBERTO CHAPIN MD, [facility]([phone]), at 04/16/2024 1:44 PM Seven Saha MD IMG DX ORDERABLES * (ABNORMAL) Comprehensive metabolic panel Non-fasting (04/16/2024 12:47 PM EDT) Glucose 97 65 - 199 mg/dL 04/16/2024 1:[address] [facility] Comment:Glucose Concentratio n >=200 mg/dL [...] Fasting Status No 04/16/2024 1:[address] [facility] Blood VENOUS BLOOD SPECIMEN / Unknown Venipuncture / Unknown 04/16/2024 12:47 PM EDT 04/16/2024 12:47 PM EDT Seven Saha MD CHEMISTRY ORDERABLES Performing Organization Address City/[facility]/ZIP Co de Phone Number [facility] [place] [address] * (ABNORMAL) Lactate Dehydrogenase (04/16/2024 12:47 PM EDT) Pathologist [facility] Lactate Dehydrogenase 275(H) 110 - 220 unit/L 04/16/2024 1:[address] [facility] Blood VENOUS BLOOD SPECIMEN / Unknown Venipuncture / Unknown 04/16/2024 12:47 PM EDT 04/16/2024 12:47 PM EDT Seven Saha MD CHEMISTRY ORDERABLES [facility] [place] [address] * (ABNORMAL) CBC (with Diff) (04/16/2024 12:47 PM EDT) White Blood Cell 8.36 4.00 - 9.50 x10(3)/mc L 04/16/2024 1:[address] [facility] Red Blood Cell 4.54(L) 4.58 - 5.54 x10(6)/mc L 04/16/2024 1:[address] [facility] Hemoglobin 12.1(L) 13.7 - 16.5 [...] % 14.0 % 04/16/2024 1:[address] [facility] Lymph Absolute 1.17 0.90 - 3.20 x10(3)/mc L 04/16/2024 1:[address] [facility] Monocyte % 7.2 % 04/16/2024 1:[address] [facility] Monocyte Absolute 0.60 0.30 - 0.90 x10(3)/mc L 04/16/2024 1:[address] [facility] Eos % 0.5 % 04/16/2024 1:[address] [facility] Eos Absolute 0.04 0.00 - 0.40 x10(3)/mc L 04/16/2024 1:[address] [facility] Basophil % 0.4 % 04/16/2024 1:[address] [facility] Baso Absolute <0.04 0.00 - 0.10 x10(3)/mc L 04/16/2024 1:[address] [facility] Immature Gran % 0.7 % 1:[address] [facility] Immature Gran Absolute 0.06(H) 0.00 - 0.04 x10(3)/mc L 04/16/2024 1:[address] [facility] Blood VENOUS BLOOD SPECIMEN / Unknown Venipuncture / Unknown 04/16/2024 12:47 PM EDT 04/16/2024 12:47 PM EDT Seven Saha MD HEMATOLOGY ORDERABLE S [facility] [place] [address] * Pathology Fluid Review (04/16/2024 11:45 AM [...] more definitive diagnosis. 04/17/2024 1:[address] [facility] Pathology Slide Review 04/17/2024 1:[address] [facility] Signing Pathologist This result has been reviewed by TERRY JEAN-BAPTISTE MD on 04/17/24 at 1:08 PM. 04/17/2024 1:[address] [facility] Body Fluid LEFT PLEURAL FLUID / Unknown 04/16/2024 11:45 AM EDT 04/16/2024 1:21 PM EDT Seven Saha MD BODY FLUIDS AND STOO LS ORDERABLES Performing Organization Address [facility]/ZIP Co de Phone Number [facility] [place] [address] * Lactate Dehydrogenase Body Fluid (04/16/2024 11:45 AM EDT) Lactate Dehydrogenase, Fluid 246 unit/L 04/16/2024 2:[address] [facility] Comment:Reference intervals are unavailable for this test in body fluids. Comparison of this result with the concentration in blood serum or plasma is recommended. This test has not been cleared by the [place] FDA. Performance characteristics of this test for the analysis of body fluids were determined by [facility] in accordance with CLIA requirements. This laboratory is qualified under CLIA to perform high-complexity testing. Body Fluid Source Pleural Fluid, Left 04/16/2024 2:[address] [facility] Body Fluid LEFT PLEURAL FLUID / Unknown 04/16/2024 11:45 AM EDT 04/16/2024 1:21 PM EDT Andrea Freeman MD BODY FLUIDS AND STOO LS ORDERABLES Performing Organization Address [facility]/ZIP Co de Phone Number [facility] [place] [address] * Immunophenotyping Flow Cytometry (04/16/2024 11:45 AM EDT) Final Diagnosis - No monotypic B-cell population or phenotypically abnormal T-cell population is detected. 04/17/2024 12:[address] [facility] Signing Pathologist This result has been reviewed by Jim Forrest MD on 04/17/24 at 12:48 PM. 04/17/2024 12:[address] [facility] Interpretation No monotypic B-cell population detected. The T-cell CD4:CD8 ratio is 3.7:1, and no specific calderon-T-cell marker aberrancies are detected. 04/17/2024 12:[address] [facility] Lymphocyte % 30.3 % 04/17/2024 12:[address] [facility] Monocyte % 11.8 % 04/17/2024 12:[address] [facility] Granulocyte % 32.6 % 04/17/2024 12:[address] [facility] CD45 DIM % 0.4 % 04/17/2024 12:[facility] CD3+ % 64.0 % 04/17/2024 12:48 PM [facility] CD19+ % 8.0 % 04/17/2024 12:48 PM [facility] CD56+ % 26.0 % 04/17/2024 12:[address] [facility] B-Cell:T-Cell Ratio 0.1 04/17/2024 12:48 PM [facility] [place]:Lambda Ratio 0.9 04/17/2024 12:48 PM [facility] CD4:CD8 Ratio 3.7 04/17/2024 12:[address] [facility] Cell Viability % 98.5 % 04/17/20 12:48 PM [facility] Specimen Processing Cells for immunophenotypic analysis were derived from pleural fluid. The following markers were assessed: CD2, CD3, CD4, CD5, CD7, CD8, CD10, CD19, CD45, CD56, kappa light chain, and lambda light chain. 04/17/2024 12:[address] [facility] Disclaimer Flow analysis is an ancillary study. A definite diagnosis requires correlation with the morphologic features of this process and if necessary, correlation with other ancillary studies like immunohistochemist ry, enzyme cytochemistry and/or cyto/molecular genetics. This test was developed and its performance characteristics determined by the Clinical Flow Cytometry Laboratory at [facility]. It has not been cleared or [...] clinical laboratory testing. 04/17/2024 12:[address] [facility] Body Fluid LEFT PLEURAL FLUID / Unknown 04/16/2024 11:45 AM EDT 04/16/2024 1:21 PM EDT Seven Saha MD HEMATOLOGY ORDERABLE S [facility] [place] [address] * Albumin Level Body Fluid (04/16/2024 11:45 AM EDT) Albumin, Fluid 2.1 g/dL 04/16/2024 2:[address] [facility] Comment:Reference intervals are unavailable for this test in body fluids. Comparison of this result with the concentration in blood serum or plasma is recommended. This test has not been cleared by the [place] FDA. Performance characteristics of this test for the analysis of body fluids were determined by [facility] in accordance with CLIA requirements. This laboratory is qualified under CLIA to perform high-complexity testing. Body Fluid Source Pleural Fluid, Left 04/16/2024 2:[address] [facility] Body Fluid LEFT PLEURAL FLUID / Unknown 04/16/2024 11:45 AM EDT 04/16/2024 1:21 PM EDT Seven Saha MD BODY FLUIDS AND STOO LS ORDERABLES Performing Organization Address [facility] Co de Phone Number [facility] [place] [address] * Body Fluid Culture, Aerobic (04/16/2024 11:45 AM EDT) Body Fluid Culture No growth 04/20/2024 9:[address] [facility] Gram Stain Cytocentrifuge Gram Stain performed 04/20/2024 9:[address] [facility] Gram Stain Neutrophils seen 04/20/20 9:[address] [facility] Gram Stain No microorganisms seen 04/20/2024 9:[address] [facility] Body Fluid LEFT PLEURAL FLUID / Unknown 04/16/2024 11:45 AM EDT 04/16/2024 1:21 PM EDT Seven Saha MD MICROBIOLOGY - GENER AL ORDERABLES Performing Organization Address [facility]/ZIP Co de Phone Number [facility] [place] [address] * Glucose Level Body Fluid (04/16/2024 11:45 AM EDT) Glucose, Fluid 107 mg/dL 04/16/2024 2:[address] [facility] Body Fluid Source Pleural Fluid, Left 04/16/2024 2:[address] [facility] Body Fluid LEFT PLEURAL FLUID / Unknown 04/16/2024 11:45 AM EDT 04/16/2024 1:[address] [facility] - 04/16/2024 2:00 PM EDT Reference intervals are unavailable for this test in body fluids. Comparison of this result with the concentration in blood, serum, or plasma is recommended. This test has not been cleared by the [place] FDA. Performance characteristics of this test for the analysis of body fluids were determined by [facility] in accordance with CLIA requirements. This laboratory is qualified under CLIA to perform high-complexity testing. Seven Saha MD BODY FLUIDS AND STOO LS ORDERABLES Performing Organization Address [facility]/ZIP Co de Phone Number [facility] [place] [address] * Protein Level Body Fluid (04/16/2024 11:45 AM EDT) Protein, Fluid 3.6 g/dL 04/16/2024 2:[address] [facility] Comment:Reference intervals are unavailable for this test in body fluids. Comparison of this result with the concentration in blood serum or plasma is recommended. This test has not been cleared by the [place] FDA. Performance characteristics of this test for the analysis of body fluids were determined by [facility] in accordance with CLIA requirements. This laboratory is qualified under CLIA to perform high-complexity testing. Body Fluid Source Pleural Fluid, Left 04/16/2024 2:[address] [facility] Body Fluid LEFT PLEURAL FLUID / Unknown 04/16/2024 11:45 AM EDT 04/16/2024 1:21 PM EDT Seven Saha MD BODY FLUIDS AND STOO LS ORDERABLES Performing Organization Address City/[facility]/ZIP Co de Phone Number [facility] [place] [address] * (ABNORMAL) Cell Count Pulmonary Fluid ([facility]) (04/16/2024 11:45 AM EDT) Color, Fld [place] 04/16/2024 2:[address] [facility] Appearance, PF Slightly Cloudy 04/16/2024 2:[address] [facility] Seg PF Count 43 % 04/16/2024 2:[address] [facility] Lymph PF Count 34 % 04/16/2024 2:[address] [facility] Macrophage PF Count 23 % 04/16/2024 2:[address] [facility] WBC Count, PF 1,093(H) <500 Cells 04/16/2024 2:[address] [facility] Comment: All body fluid results should always be interpreted in light of the total clinical presentation of the patient, including clinical history, data from additional tests and other appropriate information. FLUID DIFF COUNT 200 04/16/20 24 2:[address] [facility] Body Fluid LEFT PLEURAL FLUID / Unknown 04/16/2024 11:45 AM EDT 04/16/2024 1:21 PM EDT Seven Saha MD BODY FLUIDS AND STOO LS ORDERABLES Performing Organization Address City/State/[facility] Co de Phone Number [facility] [place] [address] * Cytology Non-LINE CREWMAN (04/16/2024 10:52 AM EDT) Case Report Medical Cytology Report ? Case: [id number] ? Authorizing Provider: ??Seven Saha MD ? Collected: ? 04/16/2024 1052 ? Ordering Location: ? Pulmonology at [facility] ?Received: ?04/16/2024 1311 ? Pathologist: ? Jose [...] Calretinin Positive in mesothelial cells A2-3 CEA [place] Negative A2-4 CD68 Positive in macrophages 04/18/2024 [...] Cell Block: 1. 04/18/2024 5:[address] [facility] Result Note Routine 04/18/2024 5:[address] [facility] Body Fluid LEFT PLEURAL FLUID / Unknown 04/16/2024 10:52 AM EDT 04/16/2024 1:11 PM EDT Seven Saha MD PATHOLOGY/CYTOLOGY O RDERARYANN Performing Organization Address City/State/[facility] Co de Phone Number [facility] [place] [address] documented in this encounter Visit Diagnoses Diagnosis Pleural effusion, bilateral- Primary Unspecified pleural effusion Laboratory procedure Laboratory examination, unspecified Pleural effusion, bilateral Unspecified pleural effusion documented in this encounter Care Teams Casting Inspector Relationship Specialty Start Date End Date America Caro MD [address] [place] [address] PCP - General Family Medicine 03/31/24 documented as of this encounter
--- OUTSIDE RECORDS SUMMARY | 2024-05-28 11:37 | XMS_ITS | Encounter Summary ---
Author Organization [facility] [place] [address] Care Team Providers Care Drivability Technician Name Role Phone America Caro MD Primary Care Provider [phone] Encounter Details Date Type Department Care Team (Latest Contact Info) Description 04/16/2024 Travel Social History Tobacco Use Types Packs/Day Years Used Date Smoking Tobacco: Former Pipe Passive Smoke Exposure: Past Smokeless Tobacco: Never Comments:Smoke pipe for 10 y ears since 13 years old, Does still smoke pot but is slowing down. Passive Exposure Comments:Second hand smoke since 0810-8763 Sex and Gender Information Value Date Recorded Sex Assigned at Not on file Gender Identity Not on file Sexual Orientation Not on file documented as of this encounter Plan of Treatment Upcoming Encounters Date Type Department Care Team (Late st Contact Info) Description 05/30/2024 9:00 AM EST Infusion Hematology Oncology at [address] [phone] 06/05/2024 9:15 AM EST Laboratory Appointment Lab at [facility] Hematology Oncology [address] [place] [phone] 06/05/2024 10:30 AM EST Office Visit Hematology [place] [address] Albania Chahal MD [facility] HEMATOLOGY[place] [address] 06/05/2024 1:00 PM EST Hospital Encounter Hematology [place] [address] 06/05/2024 2:00 PM EST Clinical Support [place] [address] Aniya Saab, [facility] [place] [address] 06/26/2024 9:15 AM EST Laboratory Appointment Lab at [facility] Hematology Oncology [address] [place] [phone] 06/26/2024 10:30 AM EST Office Visit Hematology [place] [address] Albania Chahal MD [facility] HEMATOLOGY/[place] [address] 06/26/2024 12:00 PM EST Appointment Hematology [place] [address] 07/17/2024 9:30 AM EST Laboratory Appointment Lab at [facility] Hematology [address] [address] 07/17/2024 10:30 AM EST Office Visit [place]ology [place] [address] Albania Chahal MD [facility] HEMATOLOGY/[place] [address] 07/17/2024 12:00 PM EST Appointment [place]ematology [place] [address] documented as of this encounter Visit Diagnoses Not on filedocumented in this encounter Care Teams Drivability Technician Relationship Specialty Start Date End Date America Caro MD [address] [place] [address] PCP - General Family Medicine 03/31/24 documented as of this encounter
--- OUTSIDE RECORDS SUMMARY | 2024-05-28 11:38 | XMS_ITS | Encounter Summary ---
[place] [address] Care Team Providers Care Airport Utility Worker Name Role Phone America Caro MD Primary Care Provider [phone] Reason for Visit * Diagnostic Test (Routine) - Closed Specialty Diagnoses / Procedures Referred By Contac t Referred To Contact Radiology Diagnoses Multiple nodules of lung Procedures NM PET CT Skull Base to Mid-thigh America Caro MD [address] [place] [address] [place] [address] Referral ID Status Reason Start Date Expiration Date V isits Requested Visits Authorized [id number] Closed Specialty Service Requested 04/03/2024 10/01/2025 1 1 Encounter Details Date Type Department Care Team (Latest Contact Info) Description 04/11/2024 9:33 AM EDT - 04/11/2024 11:59 PM EDT Hospital Encounter [place] [address] America Caro MD [address] [place] [address] Discharge Disposition: Home Social History [...] 9:00 AM EST Infusion Hematology Oncology at [address] [address] 06/05/2024 9:15 AM EST Laboratory Appointment Lab at [facility] Hematology Oncology [address] [place] [phone] 06/05/2024 10:30 AM EST Office Visit Hematology [place] [phone] Albania Chahal MD [facility] HEMATOLOGY/[place] [address] 06/05/2024 1:00 PM EST Hospital Encounter Hematology [place] [phone] 06/05/2024 2:00 PM EST Clinical Support Hematology [place] [phone] [facility] [place] [address] 06/26/2024 9:15 AM EST Laboratory Appointment Lab at [facility] Hematology Oncology [address] [place] [phone] 06/26/2024 10:30 AM EST Office Visit Hematology [place] [phone] Albania Chahal MD [facility] DR CARTWRIGHT/[place] [address] 06/26/2024 12:00 PM EST Appointment Hematology [place] [address] 07/17/2024 9:30 AM EST Laboratory Appointment Lab at [facility] Hematology Oncology [address] [place] [phone] 07/17/2024 10:30 AM EST Office Visit Hematology [place] [address] Albania Chahal MD [facility] HEMATOLOGY/[place] [address] 07/17/2024 12:00 PM EST Appointment Hematology [place] [address] documented as of this encounter [...] TEST O RDERABLES [facility] [place] [address] documented in this encounter Visit Diagnoses Not on filedocumented in this encounter Care Teams Airport Utility Worker Relationship Specialty Start Date End Date America Caro MD [address] [place] [address] PCP - General Family Medicine 03/31/24 documented as of this encounter
--- OUTSIDE RECORDS SUMMARY | 2024-05-28 11:38 | XMS_ITS | Encounter Summary ---
Author Organization Formerly [facility] [place] [address] Care Team Providers Care Manager Renewable Energy Name Role Phone America Caro MD Primary Care Provider [phone] Encounter Details Date Type Department Care Team [...] AM EST Infusion Hematology Oncology at [address] [phone] 06/05/2024 9:15 AM EST Laboratory Appointment Lab at [facility] Hematology Oncology [address] [place] [phone] 06/05/2024 10:30 AM EST Office Visit Hematology [place] [address] Albania Chahal MD [facility] HEMATOLOGY[place] [address] 06/05/2024 1:00 PM EST Hospital Encounter Hematology [place] [address] 06/05/2024 2:00 PM EST Clinical Support [place]emat[place] [address] Aniya Saab, [facility] [place] [address] 06/26/2024 9:15 AM EST Laboratory Appointment Lab at [facility] Hematology Oncology [address] [place] [phone] 06/26/2024 10:30 AM EST Office Visit Hematology [place] [address] Albania Chahal MD [facility] HEMATOLOGY/[place] [address] 06/26/2024 12:00 PM EST Appointment Hematology [place] [address] 07/17/2024 9:30 AM EST Laboratory Appointment Lab at [facility] Hematology Oncology [address] [place] [phone] 07/17/2024 10:30 AM EST Office Visit Hematology [place] [address] Albania Chahal MD [facility] [place]ATOLOGY/[place] [address] 07/17/2024 12:00 PM EST Appointment Hematology and Oncology at [place] [phone] documented as of this encounter Visit Diagnoses Not on filedocumented in this encounter Care Teams Manager Renewable Energy Relationship Specialty Start Date End Date America Caro MD [address] [place] [address] PCP - General Family Medicine 03/31/24 documented as of this encounter
--- OUTSIDE RECORDS SUMMARY | 2024-05-28 11:38 | XMS_ITS | Encounter Summary ---
Author Organization [facility] [place] [address] Care Team Providers Care Optometric Technician Name Role Phone America Caro MD Primary Care Provider [phone] Encounter Details Date Type Department Care Team [...] 9:00 AM EST Infusion Hematology Oncology at [address] [phone] 06/05/2024 9:15 AM EST Laboratory Appointment Lab at [facility] Hematology Oncology [address] [place] [phone] 06/05/2024 10:30 AM EST Office Visit Hematology [place] [address] Albania Chahal MD [facility] HEMATOLOGY/[place] [address] 06/05/2024 1:00 PM EST Hospital Encounter Hematology [place] [address] 06/05/2024 2:00 PM EST Clinical Support H[place] [address] Aniya Saab, [facility] [place] [address] 06/26/2024 9:15 AM EST Laboratory Appointment Lab at [facility] Hematology Oncology [address] [place] [phone] 06/26/2024 10:30 AM EST Office Visit Hematology [place] [address] Albania Chahal MD [facility] HEMATOLOGY/[place] [address] 06/26/2024 12:00 PM EST Appointment Hematology [place] [address] 07/17/2024 9:30 AM EST Laboratory Appointment Lab at [facility] Hematology Oncology [address] [place] [phone] 07/17/2024 10:30 AM EST Office Visit Hematology [place] [address] Albania Chahal MD [facility] HEMATOLOGY/[place] [address] 07/17/2024 12:00 PM EST Appointment Hematology and Oncology at [place] [phone] documented as of this encounter Visit Diagnoses Not on filedocumented in this encounter Care Teams Optometric Technician Relationship Specialty Start Date End Date America Caro MD [address] [place] [address] PCP - General Family Medicine 03/31/24 documented as of this encounter
--- OUTSIDE RECORDS SUMMARY | 2024-05-28 11:38 | XMS_ITS | Encounter Summary ---
[place] [address] Care Team Providers Care Doctor Chiropractic Name Role Phone America Caro MD Primary Care Provider [phone] Reason for Referral * Diagnostic Test (Routine) - Closed Specialty Diagnoses / Procedures Referred By Contac t Referred To Contact Radiology Diagnoses Multiple nodules of lung Procedures NM PET CT Skull Base to Mid-thigh America Caro MD [address] [place] [address] [place] [address] Referral ID Status Reason Start Date Expiration Date V isits Requested Visits Authorized [id number] Closed Specialty Service Requested 04/03/2024 10/01/2025 1 1 Reason for Visit * Diagnostic Test (Routine) - Closed Specialty Diagnoses / Procedures Referred By Contac t Referred To Contact Radiology Diagnoses Multiple nodules of lung Procedures NM PET CT Skull Base to Mid-thigh America Caro MD [address] [place] [address] [place] [address] Referral ID Status Reason Start Date Expiration Date V isits Requested Visits Authorized [id number] Closed Specialty Service Requested 04/03/2024 10/01/2025 1 1 Encounter Details Date Type Department Care Team (Latest Contact Info) Description 04/11/2024 9:33 AM EDT - 04/11/2024 11:59 PM EDT Hospital Encounter Nuclear Medicine at [place] [phone] America Caro MD [address] [place] [address] Multiple nodules of lung Discharge Disposition: Home [...] AM EST Infusion Hematology Oncology at [address] [phone] 06/05/2024 9:15 AM EST Laboratory Appointment Lab at [facility] Hematology Oncology [address] [place] [phone] 06/05/2024 10:30 AM EST Office Visit Hematology [place] [phone] Albania Chahal MD [facility] HEMATOLOGY[place] [address] 06/05/2024 1:00 PM EST Hospital Encounter Hematology [place] [phone] 06/05/2024 2:00 PM EST Clinical Support Hematology [place] [phone] Aniya Saab, [facility] [place] [address] 06/26/2024 9:15 AM EST Laboratory Appointment Lab at [facility] Hematology Oncology [address] [place] [phone] 06/26/2024 10:30 AM EST Office Visit Hematology [place] [address] Albania Chahal MD [facility] HEMATOLOGY[place] [address] 06/26/2024 12:00 PM EST Appointment Hematology [place] [address] 07/17/2024 9:30 AM EST Laboratory Appointment Lab at [facility] Hematology Oncology [address] [place] [phone] 07/17/2024 10:30 AM EST Office Visit Hematology [place] [address] Albania Chahal MD [facility] HEMATOLOGY[place] [address] 07/17/2024 12:00 PM EST Appointment Hematology [place] [address] documented as of this encounter Procedures Procedure Name Priority Date/Time Associated Diagnosis Comments NM PET CT SKULL BASE TO MID-THIGH (LCSR) Routine 04/11/2024 11:00 AM EDT Multiple nodules of lung documented in this encounter Results * NM PET CT Skull Base to Mid-thigh (04/11/2024 11:00 AM EDT) Whatever Signature WORKSTATION ID [id number] RAD Anatomical Region Laterality Modality Positron Emissio [...] resident's interpretation and agree with the findings, iRshabh Cohen MD at 04/14/2024 3:40 PM Thank you for letting us participate in the care of this patient. ??If you are a health care provider and have any questions regarding this report, please contact the number below. ??For patients who have questions please contact the health property caretaker that requested your imaging first. ? Electronically signed by: Rishabh Cohen MD, [facility] ([phone]), at 04/14/2024 3:40 PM Narrative 04/14/2024 3:40 PM EDT EXAMINATION: NM PET CT STANDARD SKULL BASE TO MID-THIGH CLINICAL HISTORY: multiple nodules of lung; other nonspecific abnormal finding of lung field R91.8, Other nonspecific abnormal finding of lung field TECHNIQUE: Following IV injection of 15-glepxv-2-deoxyglucose (FDG) a standard uptake of approximately 60 [...] lung field TECHNIQUE: Following IV injection of 29-iynsic-1-deoxyglucose (FDG) astandard uptake of approximately 60 minutes, [...] patients who have questions please contactthe health property caretaker that requested your imaging first. Electronically signed by: Rishabh Cohen MD, [facility]([phone]), at 04/14/2024 3:40 PM America Caro MD IMG PET ORDERABLES documented [...] Arm documented in this encounter Care Teams Doctor Chiropractic Relationship Specialty Start Date End Date America Caro MD [address] [place] [address] PCP - General Family Medicine 03/31/24 documented as of this encounter
--- OUTSIDE RECORDS SUMMARY | 2024-05-28 11:38 | XMS_ITS | Encounter Summary ---
[place] [address] Care Team Providers Care Wood Tile Installation Helper Name Role Phone America Caor MD Primary Care Provider [phone] Reason for Referral * Consultation (Urgent) - Authorized Specialty Diagnoses / Procedures Referred By Contac t Referred To Contact Pulmonology Diagnoses Other nonspecific abnormal finding of lung field Multiple lung nodules America Caro MD [address] [place] [address] [facility] Pulmonology [address] [place] [phone] Referral ID Status Reason Start Date Expiration Date Visits Requested Visits Authorized [id number] Authorized Consult, Test & Treat PCP Updated and/or Approved 03/31/2024 03/30/2025 6 6 Encounter Details Date Type Department Care Team (Latest Contact Info) Description 04/14/2024 Transcribe Orders eDH Incoming Referrals [phone] America Caro MD [address] [place] [address] Other nonspecific abnormal finding of [...] 9:00 AM EST Infusion Hematology Oncology at [address] [address] 06/05/2024 9:15 AM EST Laboratory Appointment Lab at [facility] Hematology Oncology [address] [place] [phone] 06/05/2024 10:30 AM EST Office Visit [place] [phone] Albania Chahal MD [facility] HEMATOLOGY[place] [address] 06/05/2024 1:00 PM EST Hospital Encounter [place] [phone] 06/05/2024 2:00 PM EST Clinical Support [place] [phone] Aniya Saab, [facility] [place] [address] 06/26/2024 9:15 AM EST Laboratory Appointment Lab at [facility] Hematology Oncology [address] [place] [phone] 06/26/2024 10:30 AM EST Office Visit [place] [address] Albania Chahal MD [facility] HEMATOLOGY[place] [address] 06/26/2024 12:00 PM EST Appointment [place] [address] 07/17/2024 9:30 AM EST Laboratory Appointment Lab at [facility] Hematology Oncology [address] [place] [phone] 07/17/2024 10:30 AM EST Office Visit [place] [address] Albania Chahal MD [facility] HEMATOLOGY/[place] [address] 07/17/2024 12:00 PM EST Appointment [place] [address] Scheduled Referrals Name Type Priority Associated Diagnoses Orde r Schedule Referral to Pulmonology Outpatient Referral Routine Other nonspecific abnormal finding of lung field Ordered: 04/14/2024 documented as of this encounter Visit Diagnoses Diagnosis Other nonspecific abnormal finding of lung field documented in this encounter Care Teams Wood Tile Installation Helper Relationship Specialty Start Date End Date America aCro MD [address] [place] [address] PCP - General Family Medicine 03/31/24 documented as of this encounter
--- OUTSIDE RECORDS SUMMARY | 2024-05-28 11:38 | XMS_ITS | Encounter Summary ---
[place] [address] Care Team Providers Care Third Helper Name Role Phone America Caro MD Primary Care Provider [phone] Reason for Referral * Consultation (Routine) - Authorized Specialty Diagnoses / Procedures Referred By Contac t Referred To Contact Cardiology Diagnoses Pericardial effusion R sided CP. Echo w/ moderate pericardial effusion, CT shows thickening of mediastinum & lung nodules (referred to Pulm). PMH recent cholecystectomy America Caro MD [address] [place] [address] [facility] [address] [place] [phone] Referral ID Status Reason Start Date Expiration Date Visits Requested Visits Authorized [id number] Authorized Consult, Test & Treat 04/07/2024 04/07/2025 1 1 Encounter Details Date Type Department Care Team (Latest Contact Info) Description 04/07/2024 Transcribe Orders eDH Incoming Referrals [phone] America Caro MD [address] [place] [address] Pericardial effusion Social History Tobacco [...] 9:00 AM EST Infusion Hematology Oncology at [address] [phone] 06/05/2024 9:15 AM EST Laboratory Appointment Lab at [facility] [place] Oncology [address] [place] [phone] 06/05/2024 10:30 AM EST Office Visit Hematology [place] [phone] Albania Chahal MD [facility] HEMATOLOGY[place] [address] 06/05/2024 1:00 PM EST Hospital Encounter Hematology [place] [address] 06/05/2024 2:00 PM EST Clinical Support Hematology [place] [address] Aniya Saab, [facility] [place] [place] [address] 06/26/2024 9:15 AM EST Laboratory Appointment Lab at [facility] Hematology Oncology [address] [place] [phone] 06/26/2024 10:30 AM EST Office Visit Hematology [place] [address] Albania Chahal MD [facility] DR CARTWRIGHT/[place] [address] 06/26/2024 12:00 PM EST Appointment Hematology [place] [address] 07/17/2024 9:30 AM EST Laboratory Appointment Lab at [facility] Hematology Oncology [address] [place] [phone] 07/17/2024 10:30 AM EST Office Visit Hematology [place] [address] Albania Chahal MD [facility] HEMATOLOGY/[place] [address] 07/17/2024 12:00 PM EST Appointment Hematology [place] [address] Scheduled Referrals Name Type Priority Associated Diagnoses Order Schedule Referral to Cardiology Outpatient Referral Routine Pericardial effusion Ordered: 04/07/2024 documented as of this encounter Visit Diagnoses Diagnosis Pericardial effusion Unspecified disease of pericardium documented in this encounter Care Teams Third Helper Relationship Specialty Start Date End Date America Caro MD [address] [place] [address] PCP - General Family Medicine 03/31/24 documented as of this encounter
--- OUTSIDE RECORDS SUMMARY | 2024-05-28 11:38 | XMS_ITS | Encounter Summary ---
Author Organization Formerly [facility] [place] [address] Care Team Providers Care Career Center Advisor Name Role Phone America Caro MD Primary Care Provider [phone] Encounter Details Date Type Department Care Team (Late st Contact Info) Description 04/15/2024 [place] [phone] Kaela Zayas Social History Tobacco Use Types [...] AM EST Infusion Hematology Oncology at [address] [address] 06/05/2024 9:15 AM EST Laboratory Appointment Lab at [facility] Hematology Oncology [address] [place] [phone] 06/05/2024 10:30 AM EST Office Visit Hematology [place] [phone] Albania Chahal MD [facility] HEMATOLOGY[place] [address] 06/05/2024 1:00 PM EST Hospital Encounter Hematology [place] [phone]16 06/05/2024 2:00 PM EST Clinical Support Hematology [place] [address] Aniya Saab, [facility] [place] [address] 06/26/2024 9:15 AM EST Laboratory Appointment Lab at [facility] [place] [address] [address] 06/26/2024 10:30 AM EST Office Visit Hematology and Oncology at [place] [phone] Albania Chahal MD [facility] [place]ATOLOGY/[place] [address] 06/26/2024 12:00 PM EST Appointment H[place] [address] 07/17/2024 9:30 AM EST Laboratory Appointment Lab at [address] [address] 07/17/2024 10:30 AM EST Office Visit Hematology [place] [address] Albania Chahal MD [facility] HEMATOLOGY[place] [address] 07/17/2024 12:00 PM EST Appointment Hematology [place] [address] documented as of this encounter Visit Diagnoses Not on filedocumented in this encounter Care Teams Career Center Advisor Relationship Specialty Start Date End Date America Caro MD [address] [place] [address] PCP - General Family Medicine 03/31/24 documented as of this encounter
--- OUTSIDE RECORDS SUMMARY | 2024-05-28 11:39 | XMS_ITS | Encounter Summary ---
Author Organization [facility] [place] [address] Care Team Providers Care Supervisor Leaf Spring Repair Name Role Phone Unavailable Primary Care Provider Unavailabl e Encounter Details Date Type Department Care Team (Late st Contact Info) Description 03/28/2024 Ancillary Procedure Radiology Library at [facility] [place] [address] America Caro MD [address] [place] [address] Social History Tobacco Use Types Packs/Day Years [...] AM EST Infusion Hematology Oncology at [address] [phone] 06/05/2024 9:15 AM EST Laboratory Appointment Lab at [facility] Hematology Oncology [address] [place] [phone] 06/05/2024 10:30 AM EST Office Visit [place]ematology [place] [phone] Albania Chahal MD [facility] HEMATOLOGY/[place] [address] 06/05/2024 1:00 PM EST Hospital Encounter [place]ematology [place] [address] 06/05/2024 2:00 PM EST Clinical Support [place] [address] Aniya Saab, [facility] [place] [address] 06/26/2024 9:15 AM EST Laboratory Appointment Lab at [facility] Hematology Oncology [address] [place] [phone] 06/26/2024 10:30 AM EST Office Visit [place] [address] Albania Chahal MD [facility] HEMATOLOGY[place] [address] 06/26/2024 12:00 PM EST Appointment [place] [address] 07/17/2024 9:30 AM EST Laboratory Appointment Lab at [facility] Hematology Oncology [address] [place] [phone] 07/17/2024 10:30 AM EST Office Visit [place] [address] Albania Chahal MD [facility] HEMATOLOGY/[place] [address] 07/17/2024 12:00 PM EST Appointment [place] [address] documented as of this encounter Procedures Procedure Name Priority Date/Time Associated Diagnosis Comments FILM LIBRARY STORAGE ONLY CT CHEST Routine 03/28/2024 12:00 AM EDT documented in this encounter Results * Film Library- Storage Only CT Chest (03/28/2024 12:00 AM EDT) Narrative [facility] - 04/02/2024 10:44 AM EDT This exam is auto-finalizing. It's purpose is for storage only. America Caro MD IMG FILM LIBRARY ORD ERABLES [place], [place] documented in this encounter Visit Diagnoses Not on filedocumented in this encounter
--- OUTSIDE RECORDS SUMMARY | 2024-05-28 11:39 | XMS_ITS | Encounter Summary ---
[place] [address] Care Team Providers Care Early Childhood Associate Name Role Phone Venancio Caro MD Primary Care Provider [phone] Reason for Referral * Diagnostic Test (Routine) - Closed Specialty Diagnoses / Procedures Referred By Contac t Referred To Contact Cardiology Diagnoses Pericardial effusion Procedures Mobile Echo Venancio Caro MD [address] [place] [address] [facility] [place] [address] Referral ID Status Reason Start Date Expiration Date V isits Requested Visits Authorized [id number] Closed Specialty Service Requested 04/02/2024 04/02/2025 1 1 Reason for Visit * Diagnostic Test (Routine) - Closed Specialty Diagnoses / Procedures Referred By Contac t Referred To Contact Cardiology Diagnoses Pericardial effusion Procedures Mobile Echo Venancio Caro MD [address] [place] [address] [facility] [place] [address] Referral ID Status Reason Start Date Expiration Date V isits Requested Visits Authorized [id number] Closed Specialty Service Requested 04/02/2024 04/02/2025 1 1 Encounter Details Date Type Department Care Team (Latest Contact Info) Description 04/02/2024 8:53 AM EDT - 04/02/2024 11:59 PM EDT Hospital Encounter [place] [phone] Venancio Caro MD [address] [place] [address] Pericardial effusion Discharge Disposition: Home Social History [...] AM EST Infusion Hematology Oncology at [address] [phone] 06/05/2024 9:15 AM EST Laboratory Appointment Lab at [facility] Hematology Oncology [address] [place] [phone] 06/05/2024 10:30 AM EST Office Visit [place] [phone] Albania Chahal MD [facility] HEMATOLOGY/[place] [address] 06/05/2024 1:00 PM EST Hospital Encounter [place]ology [place] [phone] 06/05/2024 2:00 PM EST Clinical Support [place]emat[place] [phone] [facility] [place] [address] 06/26/2024 9:15 AM EST Laboratory Appointment Lab at [facility] Hematology Oncology [address] [place] [address] 06/26/2024 10:30 AM EST Office Visit [place] [address] Albania Chahal MD [facility] HEMATOLOGY[place] [address] 06/26/2024 12:00 PM EST Appointment [place] [phone] 07/17/2024 9:30 AM EST Laboratory Appointment Lab at [facility] Hematology Oncology [address] [place] [phone] 07/17/2024 10:30 AM EST Office Visit [place] [phone] Albania Chahal MD [facility] HEMATOLOGY[place] [address] 07/17/2024 12:00 PM EST Appointment [place] [address] documented as of this encounter Procedures Procedure Name Priority Date/Time Associated Diagnosis Comments ECHO COMPLETE Routine 04/02/2024 9:55 AM EDT Pericardial effusion documented in this encounter Results * ECHO COMPLETE (04/02/2024 9:55 AM EDT) EF 60 HEARTLAB SYSTEM Anatomical Region Laterality Modality Other 04/02/2024 7:48 AM EDT Narrative 04/02/2024 10:17 AM EDT 1 [place] [address] ? Echocardiogram Report Name: HENRY IRVIN ?Study Date: 04/02/2024 07:48 AMBP: 121/69 mmHg : 1955 ? Height: 160 cm ? Account: [id number] Age: 68 yrs ? Weight: 63 kg Gender: Male ?BSA: 1.7 m2 Ordering Physician: VENANCIO CARO Referring Physician: VENANCIO CARO Performed By: JOSEPH Reason For Study: Pericardial Effusion Exam Location: [facility]. Interpretation Summary -There is a [...] disease. -No comparison study is available. Procedure Complete-[id number]. Satisfactory quality. Left Ventricle Left ventricle is [...] Note Sabino Ortiz MD - 04/02/2024 1 [place] [address] Echocardiogram Report Name: HENRY IRVIN Study Date:04/02/2024 07:48 AMBP: 121/69 mmHg : 1955 Height: 160 cm Account: [id number] Age: 68 yrs Weight: 63 kg Gender: Male BSA: 1.7 m2 Ordering Physician: VENANCIO CARO Referring Physician: VENANCIO CARO Performed By: JOSEPH Reason For Study: Pericardial Effusion Exam Location: [facility]. Interpretation Summary -There is a [...] disease. -No comparison study is available. Procedure Complete-[id number]. Satisfactory quality. Left Ventricle Left ventricle is [...] pericardium documented in this encounter Care Teams Early Childhood Associate Relationship Specialty Start Date End Date Venancio Caro MD [address] [place] [phone] PCP - General Family Medicine 03/31/24 documented as of this encounter
--- OUTSIDE RECORDS SUMMARY | 2024-05-28 11:39 | XMS_ITS | Encounter Summary ---
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 Lawrence Cruz MD [address] [place] [address] [place] [address] [facility] [address] [place] [phone] Referral ID Status Reason Start Date Expiration Date V isits Requested Visits Authorized [id number] Closed Consult, Test & Treat PCP Updated and/or Approved 03/31/2024 03/31/2025 6 6 Encounter Details Date Type Department Care Team (Late st Contact Info) Description 03/31/2024 Transcribe Orders eDH Incoming Referrals [phone] Lawrence Cruz MD [address] [place] [address] [place] [address] Mass of mediastinum Social History [...] 9:00 AM EST Infusion Hematology Oncology at [address] [phone] 06/05/2024 9:15 AM EST Laboratory Appointment Lab at [facility] [place]ology Oncology [address] [place] [phone] 06/05/2024 10:30 AM EST Office Visit Hematology [place] [phone] Albania Chahal MD [facility] [place] [address] 06/05/2024 1:00 PM EST Hospital Encounter Hematology [place] [phone] 06/05/2024 2:00 PM EST Clinical Support Hematology [place] [phone] Aniya Saab, [facility] [place] [address] 06/26/2024 9:15 AM EST Laboratory Appointment Lab at [facility] [place] [address] [place] [phone] 06/26/2024 10:30 AM EST Office Visit [place]ematology [place] [address] Albania Chahal MD [facility] [place] [address] 06/26/2024 12:00 PM EST Appointment Hematology [place] [phone] 07/17/2024 9:30 AM EST Laboratory Appointment Lab at [facility] [place] [address] [place] [phone] 07/17/2024 10:30 AM EST Office Visit [place]ematology [place] [address] Albania Chahal MD [facility] [place]ATOLOGY[place] [address] 07/17/2024 12:00 PM EST Appointment Hematology [place] [phone] Scheduled Referrals Name Type Priority Associated Diagnoses Orde r Schedule Referral to Hematology and Oncology Outpatient Referral Urgent Mass of mediastinum Ordered: 03/31/2024 documented as of this encounter Visit Diagnoses Diagnosis Mass of mediastinum Swelling, mass, or lump in chest documented in this encounter Care Teams Press Box Custodian Relationship Specialty Start Date End Date America Caro MD [address] [place] [address] PCP - General Family Medicine 03/31/24 documented as of this encounter
== END 2024-05-28 11:24 | disposition home or self-care (01) ==
LOC: LBO 11:28
PROVIDERS: PCP Family Medicine; Visit Provider Internal Medicine
DX: C34.92 Malignant neoplasm of unspecified part of left bronchus or lung (principal)
CPT/HCPCS: 36415; 80053; 83615; 85025

== ENCOUNTER 2024-07-23 03:32 | Outpatient (CLI) | payer MEDICARE, BC, SELFPAY ==
--- NOTE | 2024-07-23 14:30 | DI.US_ITS ---
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 Ejection fraction is 60%. Wall motion is n ormal Normal right ventricular size and function Both atria are normal in size. The atrial septum is thin and hypermobile Trileaflet aortic valve with trace regurgitation Estimated right ventricular systolic pressure is 26 mmHg Ascending aorta measures 3.8 cm There is no pericardial effusion Wall motion Left Ventricle The left ventricle is normal size. The left ventricular systolic function is normal. The left ventric ular ejection fraction is within the normal range. There is normal left ventricular wall thickness. T here is normal LV segmental wall motion. There is no ventricular septal defect visualized. LVEF is 60 %. Right Ventricle The right ventricle is normal size. The right ventricular systolic function is normal. Atria The left atrium size is normal. The right atrium size is normal. Atrial septal aneurysm is present. Aortic Valve The aortic valve is normal in structure. Aortic valve is trileaflet. There is no aortic valvular sten osis. Trace aortic regurgitation. Mitral Valve The mitral valve is normal in structure. No evidence of mitral valve stenosis. Trace mitral regurgita tion. Tricuspid Valve The tricuspid valve is normal in structure. There is no tricuspid valve stenosis. Mild tricuspid regu rgitation. The RVSP is 25.7 mmHg. Pulmonic Valve The pulmonary valve is normal in structure. There is no pulmonic valvular stenosis. Trace pulmonic re gurgitation. Great Vessels The aortic root is normal in size. The ascending aorta is mildly dilated. Aortic arch is normal in ca liber. IVC is normal in size and collapses >50% with inspiration. Pericardium There is no pericardial effusion. 2D Dimensions IVSD d PLAX 1.00 cm M: 0.6-1.2 Ao Root d 3.21 cm M: 3.1 - 3.7 LVPW d PLAX 1.05 cm M: 0.6 - 1.2 Ao Asc Diam d 3.83 cm M: 2.6 - 3.4 LVID d PLAX 4.21 cm M: 4.2 - 5.8 LVDs 2.88 cm M: 2.5 - 4.0 LV EF Teichholz 59.8 % FS 31.51 % LV EDV (Teich) 79.0 mL LV ESV (Teich) 31.8 mL M-Mode TAPSE 2.23 cm (M/F) >1.7 Auto EF LV EDV A4C 87.9 mL LV EDV A2C 92.2 mL LV EDV BP 90.6 mL LV ESV A4C 37.7 mL LV ESV A2C 37.3 mL LV ESV BP 37.7 mL LVEF(%) A4C 57.1 % LVEF(%) A2C 59.6 % LVEF(%) BP 58.3 % LV SV A4C 50.2 ml LV SV A2C 54.9 ml LV SV BP 52.8 ml LV CO A4C 2.9 L/min LV CO A2C 3.1 L/min LV CO BP 3.0 L/min HR A4C 57.31 BPM HR A2C 56.34 BPM LV EDV Index (BP) LA Volume LA Length A4C 4.3 cm LA Length A2C 5.2 cm LA Area A4C s 11.44 cm2 LA Area A2C s 14.72 cm2 LA Vol A4C A-L 25.97 mL LA Vol A2C A-L 35.24 mL LA Vol Biplane A-L 33.4 mL LA Vol/BSA A4C A-L LA Vol/BSA A2C A-L LA Vol/BSA BP A-L 19.5 mL/m2 LA Vol A4C MOD 24.3 mL LA Vol A2C MOD 32.3 mL LA Vol BP MOD 30.9 mL RA Volume RA Area A4C 13.1 cm2 RA ESV A4C (A-L) 26.4mL RA Vol/BSA A4C A-L RA Length A4C 5.5 cm RA ESV A4C (MOD) 25.2mL LV Diastology MV E' medial 0.067 (>0.07 m/s) MV E Vmax 0.68 (0.4-1.3 m/s) MV E/E' MED 10.18 (<14) MV A Vmax 0.90 (0.4-1.3 m/s) MV E' lateral 0.103 (>0.1 m/s) E/A Ratio 0.8 MV E/E' LAT 6.64 (<14) MV E' Average 0.085 m/s MV E/E'(average) 8.03 Aortic Valve AoV Vmax 1.19 m/s LVOT Vmax 1.07 m/s AoV Peak Grad 26.6 mmHg LVOT Peak Grad 4.6 mmHg AoV Area (Vmax) 2.67 cm2 LVOT VTI 0.235 m AoV VTI 0.290 m LVOT Mean Grad 2.2 mmHg AoV Mean Robel. 0.90 m/s LVOT SV 70.22 mL AoV Mean Grad 3.6 mmHg LVOT Diam s 1.95 cm AoV Area (VTI) 2.42 cm2 AV Regurg Peak Gr. 5.69 mmHg Velocity Ratio 0.90 AR Decel [place] 1.7m/sec2 AR DT 2067 msec AR PHT 599 msec AR Vmax 3.44 m/s Mitral Valve MV DT 198 (160-240 msec) MV Vmax TIPS 0.79 m/s MV Mean Grad 0.7 (<2mmHg) MV VTI 0.282 m Pulmonary Valve PV Vmax 0.76 (0.5-1.5 m/s) RVOT Vmax 0.59 m/s PV Peak Grad 2.3 mmHg RVOT Peak Gr. 1.4 mmHg PV Mean Robel 0.53 m/s RVOT VTI 0.137 m PV Mean Grad 1.3 mmHg RVOT Mean Gr. 0.8 mmHg Tricuspid Valve RA Pressure 3.00 mmHg TR Vmax 2.38 m/s TV S' 0.10 m/s TR Peak Grad 22.7 mmHg RVSP (TR) 25.7 mmHg
== END 2024-07-23 03:52 ==
LOC: DI 03:33
PROVIDERS: PCP Family Medicine; Visit Provider Student in an Organized Health Care Education/Training Program
DX: I31.31 Malignant pericardial effusion in diseases classified elsewhere (principal); I35.0 Nonrheumatic aortic (valve) stenosis
CPT/HCPCS: 93306

== ENCOUNTER 2024-08-04 01:35 | Outpatient (CLI) | payer MEDICARE, BC, SELFPAY ==
--- NOTE | 2024-08-04 | DI.CT_ITS ---
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 TECHNIQUE: Imaging Protocol: Axial computed tomography images with coronal and sagittal reformatted images were created and reviewed CONTRAST MATERIAL: Intravenous: Omnipaque 350 Contrast volume:100 ml Oral: Yes. Oral contrast was also administered for bowel opacification. COMPARISON: CT CT CHEST W from 05/09/2024 FINDINGS: CHEST: LUNGS: There has been significant improvement. The multiple bilateral pulmonary nodules are no longe r evident. There are also no infiltrates nor pleural effusions. No findings in the trachea and main stem bronchi.. MEDIASTINUM: The previously present large heterogeneous anterior mediastinal mass has significantly d ecreased and although there is still significant density within the anterior mediastinal fat, this ma y be related to post therapeutic change and the anterior mediastinal fat presently is not expanded as was previously the case and the mass interdigitation between the ascending aorta and IVC is no longe r present. There is also no significant pericardial thickening at this time.Is no hilar or adenopath y. No obvious adenopathy in the anterior mediastinal fat and subcarinal region. However, there is an enhancing lymph node immediately anterior to the lower esophagus measuring 1.0 x 0.7 cm. (Series 10/i mage 20). This does not appear to been previously evident on CT scan of 05/09/2024. CARDIAC: Heart size normal there is no pericardial thickening, as was previously evident.Caliber of t he thoracic aorta is within normal limits. OSSEOUS: No significant osseous lesions.No fractures. ABDOMEN: GI: There is no ascites. There is abundant fecal material noted throughout the colon and the colon is mildly-moderately distended, this having the appearance of constipation. However, the oral contrast has reached the right-side of the colon by the time of image acquisition and small bowel loops exhibi t normal diameters with no evidence of small-bowel obstruction. No abnormal mesenteric masses evident . LIVER: There are no focal hepatic lesions nor dilatation of intrahepatic ducts. GALLBLADDER/BILIARY: Gallbladder surgically absent. CBD is not dilated. PANCREAS: No evidence of pancreatic mass nor dilatation of the pancreatic duct. SPLEEN: Spleen is not enlarged. There are no intrasplenic lesions. Splenic and portal veins are carrion nt. ADRENALS: There are no significant adrenal masses. KIDNEYS: No calculi nor hydronephrosis. No solid renal masses. No cysts evident. ABDOMINAL AORTA: Abdominal aorta is not enlarged. LYMPH NODES: There is a 10 x 7 mm enhancing lymph node anterior to the lower his, just above the GE j unction. There is no obvious mass nor hiatal hernia in the lower esophagus. ABDOMINAL WALL: No evidence of significant anterior abdominal wall nor inguinal hernia. PELVIS: LYMPH NODES: There is no intrapelvic nor inguinal adenopathy. GI: Appendix is difficult to identify as an independent structure. However, there is no evidence of o bvious acute appendicitis. no evidence of sigmoid diverticulitis. URINARY BLADDER: Bladder base indented by enlarged prostate gland. Bladder wall thickness is normal. There are no radiopaque calculi in the bladder lumen. Pelvic ureters are not dilated. REPRODUCTIVE: Prostate gland is enlarged, measuring approximately 4.5 cm wide by 5.2 cm AP by 5 cm cr aniocaudal. OSSEOUS: There are multiple lucent areas within the bilateral iliac bones of the pelvis, not associat ed with cortical destruction nor expansion but nevertheless cannot exclude metastatic bone lesions. S imilar findings are not seen in the sacrum. There is a small lucency in the central aspect of L4 vert ebral body measuring approximately 0.5 x 0.5 cm. IMPRESSION: 1. There is been very significant improvement in the appearance of the chest. All of the previously p resent bilateral lung nodules have resolved there are no nodules or infiltrates evident in either raul g field and there are no pleural effusions. 2. The large mediastinal mass has significantly decreased in size and the anterior mediastinal fat no w has resumed more normal triangular configuration. There is also no longer interdigitation of the ma ss between the ascending thoracic aorta and IVC, as was previously evident on CT scan of 05/09/2024. There is also no longer abnormal thickening of the pericardium. The anterior mediastinal fat is unifo rmly dense. This may be related to treated mass, possible radiation changes, or a combination of both . 3. There is a single enhancing lymph node now evident just anterior to the lower esophagus above the GE junction, this measuring 10 x 7 mm. This does not appear to have been present on the CT scan of th e of 05/09/2024. Therefore may be significant. 4. There are few lucencies within both iliac bones of pelvis which are non expansile and noted associ ated with cortical disruption. Nevertheless, cannot exclude the possibly that these are possibly lyti c metastatic osseous lesions. Recommend follow-up whole body nuclear bone scan. 5. prostate gland is enlarged and indents the bladder base. RADIATION DOSE DELIVERED: 339.86mGy.cm Total DLP DATA REPOSITORY: All CT scans at this facility are submitted to the National Radiology Data Registry (NRDR) Dose Index Registry (DIR) with the [employer] (ACR). RADIATION OPTIMIZATION: All CT scans at this facility use at least one of these dose optimization te chniques: automated exposure control; mA and/or kV adjustment per patient size (includes targeted exa ms where dose is matched to clinical indication); or iterative reconstruction.
[2024-08-04] MEDS: Barium Sulfate 2% W/V-Berry Smoothie 450 ML BTL PO ×2 (11:02→11:03)
[2024-08-04] MEDS: Omnipaque 350 MG/ML 100 ML BTL IJ (13:07)
[2024-08-04] MEDS: Normal Saline - Diluent 50 ML VIAL IJ (13:08)
== END 2024-08-04 01:55 ==
LOC: DI 01:35
PROVIDERS: PCP Family Medicine; Visit Provider Internal Medicine
DX: C37 Malignant neoplasm of thymus (principal)
CPT/HCPCS: 74177; 71260; J3490

== ENCOUNTER 2024-08-22 01:14 | Outpatient (CLI) | payer MEDICARE, BC, SELFPAY ==
--- OUTSIDE RECORDS SUMMARY | 2024-08-22 01:16 | XMS_ITS | Encounter Summary ---
Author Organization [facility] Address [facility] [place] [address] Care Team Providers Care Bag Printer Name Role Phone America Caro MD Primary Care Provider [phone] Encounter Details Date Type Department Care Team (Latest Contact Info) Description 07/24/2024 Travel Social History Tobacco Use Types Packs/Day Years Used Date Smoking Tobacco: Former Pipe Passive Smoke Exposure: Past Smokeless Tobacco: Never Comments:Smoke pipe for 10 y ears since 13 years old, Does still smoke pot but is slowing down. Passive Exposure Comments:Second hand smoke since 5307-7369 Alcohol Use Standard Drinks/Week Comments Yes 14 (1 standard drink = 0.6 oz pure alcohol) hardly any for the last month B1300 Health Literacy Answer Date Recor ded How often do you need to hav e someone help you when you read instructions, pamphlets, or other written material from your doctor or pharmacy? Never 05/04/2024 [facility] Utilities Answer Date Recorded In the past 12 months has [employer], gas, oil, or water [employer] threatened to shut off services in your [...] time in the past 12 m [facility], were you homeless or living in a mcfp (including now)? No 05/04/2024 Sex and Gender Information Value Date Recorded Sex Assigned at Not on file Gender Identity Not on file Sexual Orientation Not on file documented as of this encounter Plan of Treatment Upcoming Encounters Date Type Department Care Team (Late st Contact Info) Description 08/22/2024 9:00 AM EST Infusion Hematology Oncology at [address] [phone] 08/26/2024 11:30 AM EST Telephone Hematology [place] [phone] [facility] [place] [address] 09/11/2024 8:30 AM EST Laboratory Appointment Lab at [facility] Hematology Oncology [address] [place] [phone] 09/11/2024 9:30 AM EST Office Visit Hematology [place] [phone] Albania Chahal MD [facility] [place]ATOLOGY[place] [address] 09/11/2024 11:00 AM EST Appointment Hematology [place] [phone] 10/02/2024 7:45 AM EDT Laboratory Appointment Lab at [facility] Hematology Oncology [address] [place] [phone] 10/02/2024 9:[address] [place] [phone] Albania Chahal MD [facility] HEMATOLOGY[place] [address] 10/02/2024 10:30 AM EDT Office Visit Hematology [place] [phone] Albania Chahal MD [facility] HEMATOLOGY[place] [address] 10/02/2024 12:00 PM EDT Appointment Hematology and Oncology at [place] [phone] documented as of this encounter Visit Diagnoses Not on filedocumented in this encounter Care Teams Bag Printer Relationship Specialty Start Date End Date America Caro MD [address] [place] [address] PCP - General Family Medicine 03/31/24 documented as of this encounter
--- OUTSIDE RECORDS SUMMARY | 2024-08-22 01:16 | XMS_ITS | Encounter Summary ---
Author Organization [facility] Address [facility] [place] [address] Care Team Providers Care Usps Letter Carrier Name Role Phone America Caro MD Primary Care Provider [phone] Encounter Details Date Type Department Care Team (Latest Contact Info) Description 07/18/2024 Travel Social History Tobacco Use Types Packs/Day Years Used Date Smoking Tobacco: Former Pipe Passive Smoke Exposure: Past Smokeless Tobacco: Never Comments:Smoke pipe for 10 y ears since 13 years old, Does still smoke pot but is slowing down. Passive Exposure Comments:Second hand smoke since 4665-8538 Alcohol Use Standard Drinks/Week Comments Yes 14 (1 standard drink = 0.6 oz pure alcohol) hardly any for the last month B1300 Health Literacy Answer Date Recor ded How often do you need to hav e someone help you when you read instructions, pamphlets, or other written material from your doctor or pharmacy? Never 05/04/2024 [facility] Utilities Answer Date Recorded In the past 12 months has [employer], gas, oil, or water [employer] threatened to shut off services in your [...] any time in the past 12 m [facility], were you homeless or living [...] AM EST Infusion Hematology Oncology at [address] [phone] 08/26/2024 11:30 AM EST Telephone [place]ematology [place] [phone] [facility] [place] [address] 09/11/2024 8:30 AM EST Laboratory Appointment Lab at [facility] Hematology Oncology [address] [place] [phone] 09/11/2024 9:30 AM EST Office Visit Hematology [place] [phone] Albania Chahal MD [facility] [place]EMATOLOGY/[place] [address] 09/11/2024 11:00 AM EST Appointment Hematology [place] [phone] 10/02/2024 7:45 AM EDT Laboratory Appointment Lab at [facility] Hematology Oncology [address] [place] [phone] 10/02/2024 9:[address] [place] [phone] Albania Chahal MD [facility] HEMATOLOGY[place] [address] 10/02/2024 10:30 AM EDT Office Visit Hematology [place] [phone] Albania Chahal MD [facility] HEMATOLOGY[place] [address] 10/02/2024 12:00 PM EDT Appointment Hematology and Oncology at [place] [phone] documented as of this encounter Visit Diagnoses Not on filedocumented in this encounter Care Teams Usps Letter Carrier Relationship Specialty Start Date End Date America Caro MD [address] [place] [address] PCP - General Family Medicine 03/31/24 documented as of this encounter
--- OUTSIDE RECORDS SUMMARY | 2024-08-22 01:16 | XMS_ITS | Encounter Summary ---
Author Organization [facility] Address [facility] [place] [address] Care Team Providers Care Nuclear Control Operator Name Role Phone America Caro MD Primary Care Provider [phone] Reason for Visit * Reason Comments Follow-up Encounter Details Date Type Department Care Team (Late st Contact Info) Description 06/26/2024 8:00 AM EST Office Visit Hematology [place] [address] Albania Chahal MD [facility] HEMATOLOGY/[place] [address] Thymic carcinoma; Medication management Social History Tobacco Use Types Packs/Day Years Used Date Smoking Tobacco: Former Pipe Passive Smoke Exposure: Past Smokeless Tobacco: Never Comments:Smoke pipe for 10 y ears since 13 years old, Does still smoke pot but is slowing down. Passive Exposure Comments:Second hand smoke since [id number] Alcohol Use Standard Drinks/Week Comments Yes 14 (1 standard drink = 0.6 oz pure alcohol) hardly any for the last month B1300 Health Literacy Answer Date Recor ded How often do you need to hav e someone help you when you read instructions, pamphlets, or other written material from your doctor or pharmacy? Never 05/04/2024 [facility] Utilities Answer Date Recorded In [...] any time in the past 12 m [facility], were you homeless or living in a fpc (including now)? No 05/04/2024 Sex and Gender Information Value Date Recorded Sex Assigned at Not on file Gender Identity Not on file Sexual Orientation Not on file documented as of this encounter Last Filed Vital Signs Vital Sign Reading Time Taken Comments Blood Pressure 111/75 06/26/2024 7:50 AM EST Pulse 64 06/26/2024 7:50 AM EST Temperature 36.2 ??C (97.1 ??F) 06/26/2024 7:50 AM ES T Respiratory Rate 18 06/26/2024 7:50 AM EST Oxygen Saturation 97% 06/26/2024 7:50 AM EST Inhaled Oxygen Concentration - - Weight 65.2 kg (143 lb 12.8 oz) 06/26/2024 7:50 AM EST Height 161.6 cm (5' 3.62) 06/26/2024 7:50 AM ES T Body Mass Index 24.98 06/26/2024 7:50 AM EST documented in this encounter Progress Notes * Albania Chahal MD - 06/26/2024 8:00 AM EST Images from the original note were not included. FOLLOW-UP THORACIC ONCOLOGY VISIT Reason for consult: Thymic carcinoma Referred by: Dr. Andrea Freeman HISTORY OF PRESENT ILLNESS: Henry Javier is a 68 y.o. with new diagnosis of thymic carcinoma. ONCOLOGY HISTORY: Mr. Javier first reported chest [...] to thoracic oncology clinic on 05/06/2024. 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 Station [...] 04/16/2024 (750 cc) PD-L1 level TPS 10% NGS not enough tissue (ordered on 05/06/2024) Liquid biopsy (05/06/2024) PIK3CA, TP53, ANNIKA Initial biopsy read as poorly differentiated carcinoma, SCC with basaloid features, left lung mass,morphologically similar HPV related SCC, additional IHC were run per advised from 2nd opinion. The definitive diagnosis was thymic carcinoma. Patient was treated with 1 cycle of carboplatin, nab-paclitaxel, and pembrolizumab CURRENT TREATMENT: 05/15/2024 C1D1 Carboplatin, nab-paclitaxel, pembrolizumab 05/22/2024 C1D8 Hold nab-paclitaxel due to generalized rash attributed to pembrolizumab 05/29/2024 C1D15 nab-paclitaxel infusion 06/05/2024 Denosumab + 98.5 cc of ramicirumab, stopped infusion due to grade 21 infusion-related reaction (allergic reaction: hives, itchiness, normal BP, no respiratory symptoms) 06/26/2024 C1D1 carboplatin, paclitaxel without ramicirumab + denosumab (infusions delayed per patient's preference and infusion availability) Interval history: Mr. Javier was scheduled to start first infusion of ramicirumab and after some cc of infusion he developed an acute allergic reaction. The infusion was cancelled and his infusion was rescheduled. Patient comes today for first cycle of carboplatin and Taxol. He states that he recovered well from his reaction. He did not experience any other symptoms at home. His energy levels have improved, allowing for better performance of daily activities. His left-side chest pain is now better controlled, he has not taken any pain medication (no ibuprofen or Tylenol). He remains in colchicine. There is no pain with deep breathing, or breathing changes. He denies headaches, tingling or numbness. His bowel m ovements are normal, with no diarrhea or constipation. Appetite has increased and is much improved.His weight is 143 pounds. He denies swelling of the legs. He denies fever, chills. REVIEW OF SYSTEMS: As per HPI. A 12 point [id number] was obtained. Symptoms as explained in the HPI. PAST MEDICAL HISTORY: Pericarditis diagnosed in March 2024 treated with colchicine, ibuprofen and Tylenol Carpal tunnel syndrome PAST SURGICAL HISTORY: Tonsillectomy and appendectomy at early age Cholecystectomy in 2023 MEDICATIONS: Current Outpatient Medications on File Prior to Visit Medication Sig Dispense Refill cholecalciferol, Vitamin D3, 25 mcg (1,000 unit) Capsule take 1 capsule po qd. colchicine (Colcrys) 0.6 mg tablet Take 1 tablet by mouth Daily at Noon. acetaminophen (Tylenol) 325 mg tablet Take 650 mg by mouth every 4 hours as needed for Pain. triamcinolone (Kenalog) 0.1 % Cream Apply topically 2 times daily. 30 g 0 prochlorperazine (Compazine) 10 mg tablet Take 1 tablet by mouth every 6 hours as needed for Nausea. (Patient not taking: Reported on 06/26/2024) 15 tablet 0 furosemide (Lasix) 20 mg tablet Take 20 mg by mouth daily. ibuprofen (Advil) 200 mg tablet Take 200 mg by mouth every 6 hours as needed for Pain. No current facility-administered medications on file prior to visit. ALLERGIES: Allergies Allergen Reactions Ramucirumab Hives and Itching After 98.5mL of Ramurcirumab, pt reported itching. Pt had hives and redness on bilateral upper arms, lower abdomen, upper back, bilateral flank. Hives itching and redness moved down arms and back, upabdomen and was noted on knees. (See note from 06/05/24) FAMILY HISTORY: His sister was diagnosed with [...] . 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 Alcohol: He drank heavily for a long [...] 24 hrs: Temp Pulse Resp BP SpO2 06/26/24 0750 36.2 ??C (97.1 ??F) 64 18 111/75 97 % GENERAL: Henry Javier appears well and is in no acute distress. ENT: Oral pharynx clear. NECK: Supple without adenopathy. CARDIAC: Regular rate and rhythm without S3,S4 or murmurs. LUNGS: Diminished breath sounds. No wheezing or coarse sounds. Good entrance of air in the bases ABDOMEN: Soft and non-tender. EXTREMITIES: No edema. SKIN: No bruises or petechiae. Rash over bilateral axillar area improved compared with the photos taken 2 weeks ago. NEUROLOGICAL: Alert and oriented to person, place and time. MUSCULOSKELETAL: No spinal or chest wall tenderness. LABORATORY STUDIES: CBC, anemia with Hb at 13.4 near to normal, normal WBC and platelet count CMP SHAWNA down to 162 LDH stable at 144 05/15/2024: TSH high at 6.83, and free T4 normal at 1.08, added TSH level today RADIOLOGY STUDIES REVIEWED: CT scan of the chest 05/09/2024: Multiple pulmonary nodules with increased size of the right upper lobe nodule and anterior mediastinal mass. Decrease of pericardial fluid. Brain MRI 05/07/2024: IMPRESSION 1. 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 Station [...] 04/16/2024 (750 cc) PD-L1 level TPS 10% NGS not enough tissue (ordered on 05/06/2024) Liquid biopsy (05/06/2024) PIK3CA, TP53, ANNIKA Initial biopsy read as poorly differentiated carcinoma, SCC with basaloid features, left lung mass,morphologically similar HPV related SCC, additional IHC were run per advised from 2nd opinion. The definitive diagnosis was thymic carcinoma. Patient was treated with 1 cycle of carboplatin, nab-paclitaxel, and pembrolizumab I discussed with the patient the diagnosis, pathology results, imaging findings, and tumor staging,including how these factors impact prognosis and treatment options. In brief, Mr. Javier initially presented with chest pain, prompting further investigation that ultimately revealed pericarditis, along with a large FDG-avid mediastinal mass, multiple pulmonary nodules, lymph nodes, and osseous lesions indicative of metastatic disease. 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 His disease was affecting bothlungs, pericardium, mediastinal lymph nodes, ribs, and sacrum, leading to a classification of stageIV disease. He received a remote second opinion at [facility], where, based on his radiographic findings, it was suggested that his disease might represent thymic carcinoma rather than non-small cell lung cancer. We were instructed to perform additional IHC stains, including PAX, CD117, CD5, and FOXN1, to help confirm the diagnosis. I contacted our Pathology department, which performed all of the testing except for FOXN1, as it is not available in-house. The new pathology results, showing PAX and CD117 positivity and CD5 negativity, confirmed the diagnosis of thymic carcinoma. The pathologist issued an addendum to the report. During this process, the patient was started on carboplatin, nab-paclitaxel, and pembrolizumab. He developed a rash right after his first infusion attributed to immunotherapy that subsided with topical steroid. Given the updated pathology results, the recommended treatment plan is to continue carboplatin, switch nab- paclitaxel to paclitaxel, discontinue pembrolizumab (due to insufficient evidence for its use in this setting), and consider initiating ramucirumab. Pembrolizumab is usually preferred for second lines. This treatment decision was made based on the phase II RELEVENT trial, which showed the important activity of ramucirumab added to carboplatin and paclitaxel in previously untreated advanced thymic ca. The study met its primary endpoint with an MURRELL of 80% (95% CI 63.1% to 91.6%), and a DCR of 100% (95% CI 90% to 100%). After a median follow-up of 31.6 months, median ZOILA was 15.5 months (95% CI 12.5-50.8 months) and median PFS and OS were 18.1 months (95% CI 10.8-52.3 months) and 43.1 months (95% CI 31.9 months-not estimated), respectively. [[place] Oncol. 2023;35(9):817-826.] The patient was planned to start treatment and after the first 98.5 cc of ramicirumab, the patient developed a allergy mainly including hives and severe itchiness in his upper and lower extremities, chest and abdomen. His blood pressure was normal and he did not develop shortness of breath or tongue swelling. He was given 10 mg of dexamethasone as pre-med, and 10 mg after the reaction, in addition to Benadryl and Pepcid. This eventually subsided. Considering that he is at high risk of infusion reaction, we plan to start with carboplatin and Taxol infusion during cycle 1. His infusions have been delayed considering the patient's preference (due to holidays) and the infusion availability. Cancer Center at [facility] did not feel comfortable providing treatment there, therefore we arrangeinfusion for today. I noted that we should avoid delays for the future and we should continue on treatment. We plan to re challenge for cycle 2 with ramicirumab. I reviewed the protocol with the pharm acist and we are increasing the dose of dexamethasone and Benadryl to be given at least an hour before the infusion. The rate of infusion of ramicirumab will be decreased to 50% as well. Henry agrees with this plan. We will obtain a CT scan imaging after the 2 cycles of current treatment (~08/04/2023). Overall, Mr. Javier has a good performance status (ECOG of 0), he did well with his first cycle, andappears well-suited for cancer treatment. I briefly went over the logistics of cancer treatment. A balance between side effects and benefits from treatment must be kept. I reviewed the potential risks of chemotherapy and emphasized the importance of considering these alongside the patient???s individual goals and preferences for quality of life. I recommend he keeps actively physically and [...] pericardial thickening which couldrepresent pericarditis vs malignancy. Echo with normal EF of 60%. Second opinion at [facility] advised todiscuss about pericardiocentesis. Cardiology on board. His last CT scan showed improvement of pericardial fluid. He is using now only the colchicine. Bone mets (sacrum, ribs) Started on denosumab every 3 weeks. Advised to start calcium and vitamin D. He had a dental cleaning in April 2024. There are not over contraindication for this. I reviewed side effects of this medication including osteonecrosis of the jaw. He agrees with the plan. First dose on 06/05/2024. SHAWNA trending down. RECOMMENDATIONS: He is okay to proceed with C1D1 of carboplatin, and paclitaxel today. We are holding ramicurumab during this cycle, and plan to add it to his second cycle with a pre-medication regimen. Cycles shouldbe scheduled early in the morning. Plan to obtain a staging imaging after 2 cycles of treatment at [facility] in the . Bone metastasis: Started on denosumab 120 mg every 3 weeks. Advised to start calcium and vitamin D. There is no need for a therapeutic thoracentesis at this time, as his breathing is stable during this visit. Continue treatment for pericarditis as directed by the woodworker. There is not overt indication of pericardiocentesis to this point. Improving. Plan to premedicate for next visit: Increase dexamethasone to 20 mg IV to be given an hour before the infusion. Provide 25 mg IV of Benadryl 30 minutes before the infusion. Ramicirumab: Grade 2: Reduce r?m??irumab infusion rate by 50%. If he presents an allergic reaction after this premedication. I will explore the possibility of using bevacizumab. Next appointments: 07/18 C2D1 Labs, visit with me, infusion (carbo, Taxol, ramicirumab). I am working with my team to put all the appointment on the same day 08/07 C4D1 Labs, visit with me, infusion (carbo, Taxol, ramicirumab), staging CT scan couple of days before at [facility] I spent 30 minutes in the total care of this patient including review of records and imaging, [id number] consultation and counseling, interpretation of studies, coordination of care and documentation. Albania Milian M.D. Thoracic Oncology Pager # [phone] 06/26/24, 8:57 AM [facility] documented in this encounter Plan of Treatment Upcoming Encounters Date Type Department Care Team (Late st Contact Info) Description 08/22/2024 9:00 AM EST Infusion Hematology Oncology at [address] [phone] 08/26/2024 11:30 AM EST Telephone Hematology [place] [address] Aniya Saab, [facility] [place] [address] 09/11/2024 8:30 AM EST Laboratory Appointment Lab at [facility] Hematology Oncology [address] [place] [phone] 09/11/2024 9:30 AM EST Office Visit Hematology [place] [address] Albania Chahal MD [facility] HEMATOLOGY[place] [address] 09/11/2024 11:00 AM EST Appointment Hematology [place] [phone] 10/02/2024 7:45 AM EDT Laboratory Appointment Lab at [facility] Hematology Oncology [address] [place] [phone] 10/02/2024 9:[address] [place] [phone] Albania Chahal MD [facility] HEMATOLOGY[place] [address] 10/02/2024 10:30 AM EDT Office Visit Hematology [place] [address] Albania Chahal MD [facility] HEMATOLOGY[place] [address] 10/02/2024 12:00 PM EDT Appointment Hematology [place] [phone] documented as of this encounter Procedures Procedure Name Priority Date/Time Associated Diagnosis Comments TSH Add-On 06/26/2024 6:56 AM EST Thymic carcinoma Medication management documented in this encounter Results * TSH (06/26/2024 6:56 AM EST) Thyroid Stimulating Hormone 3.58 0.27 - 4.20 mcIU/mL 06/26/2024 9:50 AM EST [facility] Blood VENOUS BLOOD SPECIMEN / Unknown Venipuncture / Unknown 06/26/2024 6:56 AM EST 06/26/2024 7:04 AM EST Albania Dutton MD CHEMISTRY ORDERA BLES Performing Organization Address City/State/[facility] Co de Phone Number [facility] [place] [phone] documented in this encounter Visit Diagnoses Diagnosis Thymic carcinoma Malignant neoplasm of thymus Medication management Encounter for long-term (current) use of other medications documented in this encounter Care Teams Nuclear Control Operator Relationship Specialty Start Date End Date America Caro MD [address] [place] [address] PCP - General Family Medicine 03/31/24 documented as of this encounter
--- OUTSIDE RECORDS SUMMARY | 2024-08-22 01:16 | XMS_ITS | Encounter Summary ---
Author Organization [facility] [place] [address] Care Team Providers Care Folded Cloth Taper Name Role Phone America Caro MD Primary Care Provider [phone] Encounter Details Date Type Department Care Team (Late st Contact Info) Description 08/04/2024 Ancillary Procedure Radiology Library at [facility] [place] [phone] America Caro MD [address] [place] [address] Social History Tobacco Use Types Packs/Day Years Used Date Smoking Tobacco: Former Pipe Passive Smoke Exposure: Past Smokeless Tobacco: Never Comments:Smoke pipe for 10 y ears since 13 years old, Does still smoke pot but is slowing down. Passive Exposure Comments:Second hand smoke since 8017-8453 Alcohol Use Standard Drinks/Week Comments Yes 14 (1 standard drink = 0.6 oz pure alcohol) hardly any for the last month B1300 Health Literacy Answer Date Recor ded How often do you need to hav e someone help you when you read instructions, pamphlets, or other written material from your doctor or pharmacy? Never 05/04/2024 [facility] Utilities Answer Date Recorded In the past 12 months has [employer], gas, oil, or water [employer] threatened to shut off services in your [...] time in the past [address] [facility], were you homeless or living [...] AM EST Infusion Hematology Oncology at [address] [phone] 08/26/2024 11:30 AM EST Telephone Hematology [place] [phone] [facility] [place] [address] 09/11/2024 8:30 AM EST Laboratory Appointment Lab [place] [facility] [place] [address] [place] [phone] 09/11/2024 9:30 AM EST Office Visit Hematology [place] [phone] Albania Chahal MD [facility] HEMATOLOGY/[place] [address] 09/11/2024 11:00 AM EST Appointment Hematology [place] [address] 10/02/2024 7:45 AM EDT Laboratory Appointment Lab [place] [facility] [place] [address] [place] [phone] 10/02/2024 9:[address] [place] [phone] Albania Chahal MD [facility] HEMATOLOGY/[place] [address] 10/02/2024 10:30 AM EDT Office Visit Hematology [place] [phone] Albania Chahal MD [facility] HEMATOLOGY/[place] [address] 10/02/2024 12:00 PM EDT Appointment Hematology [place] [address] documented as of this encounter Procedures Procedure Name Priority Date/Time Associated Diagnosis Comments FILM LIBRARY STORAGE ONLY CT CHEST ABDOMEN PELVIS Routine 08/04/2024 12:00 AM EST documented in this encounter Results * Film Library- Storage Only CT Chest Abdomen Pelvis (08/04/2024 12:00 AM EST) Narrative [facility] - 08/05/2024 4:51 AM EST This exam is auto-finalizing. It's purpose is for storage only. America Caro MD IMG FILM LIBRARY ORD ERABLES [place], [place] documented in this encounter Visit Diagnoses Not on filedocumented in this encounter Care Teams Folded Cloth Taper Relationship Specialty Start Date End Date America Caro MD [address] [place] [address] PCP - General Family Medicine 03/31/24 documented as of this encounter
--- OUTSIDE RECORDS SUMMARY | 2024-08-22 01:16 | XMS_ITS | Encounter Summary ---
[place] [address] Care Team Providers Care Sound Recording Technician Name Role Phone America Caro MD Primary Care Provider [phone] Encounter Details Date Type Department Care Team (Latest Contact Info) Description 07/18/2024 7:45 AM EST Laboratory Appointment Lab at [facility] Hematology Oncology [address] [place] [phone] Non-small cell lung cancer, unspecified laterality; Thymic carcinoma Social History Tobacco Use Types Packs/Day Years Used Date Smoking Tobacco: Former Pipe Passive Smoke Exposure: Past Smokeless Tobacco: Never Comments:Smoke pipe for 10 y ears since 13 years old, Does still smoke pot but is slowing down. Passive Exposure Comments:Second hand smoke since 3300-8299 Alcohol Use Standard Drinks/Week Comments Yes 14 (1 standard drink = 0.6 oz pure alcohol) hardly any for the last month B1300 Health Literacy Answer Date Recor ded How often do you need to hav e someone help you when you read instructions, pamphlets, or other written material from your doctor or pharmacy? Never 05/04/2024 [facility] Utilities Answer Date Recorded In [...] 9:00 AM EST Infusion Hematology Oncology at [address] [phone] 08/26/2024 11:30 AM EST Telephone Hematology [place] [phone] [facility] [place] [address] 09/11/2024 8:30 AM EST Laboratory Appointment Lab at [facility] Hematology Oncology [address] [place] [phone] 09/11/2024 9:30 AM EST Office Visit Hematology [place] [phone] Albania Chahal MD [facility] HEMATOLOGY/[place] [address] 09/11/2024 11:00 AM EST Appointment Hematology [place] [phone] 10/02/2024 7:45 AM EDT Laboratory Appointment Lab at [facility] Hematology Oncology [address] [place] [phone] 10/02/2024 9:[address] [place] [phone] Albania Chahal MD [facility] HEMATOLOGY/[place] [address] 10/02/2024 10:30 AM EDT Office Visit Hematology [place] [phone] Albania Chahal MD [facility] HEMATOLOGY/[place] [address] 10/02/2024 12:00 PM EDT Appointment Hematology [place] [phone] documented as of this encounter Procedures Procedure Name Priority Date/Time Associated Diagnosis Comments URINALYSIS DIPSTICK STAT 07/18/2024 7 :48 AM EST Thymic carcinoma CBC (WITH DIFF) STAT 07/18/2024 7:45 AM EST Thymic carcinoma MAGNESIUM STAT 07/18/2024 7:45 AM EST Thymic carcinoma LACTATE DEHYDROGENASE STAT 07/18/2024 7:45 AM EST Thymic carcinoma COMPREHENSIVE METABOLIC PANEL STAT 07/18/2024 7:45 AM EST Thymic carcinoma documented in this encounter Results * Urinalysis Dipstick (07/18/2024 7:48 AM EST) Pathologist [facility] Glucose, Urine Dipstick Negative Negative 07/18/2024 8:00 AM [facility] Protein, Urine Dipstick Negative Negative 07/18/2024 8:00 AM [facility] Bilirubin, Urine Dipstick Negative Negative 07/18/2024 8:00 AM [facility] Comment:Clinical correlation required for positive Urine Bilirubin results as false positive may occur with some drugs and drug related products. If a false positive is suspected a serum total bilirubin should be considered if clinically indicated. Urobilinogen, Urine Dipstick Normal Normal, 0.2 mg/dL, 1.0 mg/dL 07/18/2024 8:00 AM [facility] pH, Urine (dipstick) 6.0 5.0 - 8.0 07/18/2024 8:00 AM [facility] Blood, Urine Dipstick Negative Negative 07/18/2024 8:00 AM [facility] Ketone, Urine Dipstick Negative Negative 07/18/2024 8:00 AM [facility] Nitrite, Urine Dipstick Negative Negative 07/18/2024 8:00 AM [facility] Leukocytes, Urine Dipstick Negative Negative 07/18/2024 8:00 AM [facility] Specific [place] Urine Automated 1.020 1.005 - 1.030 07/18/2024 8:00 AM [facility] Appearance, Urine Dipstick Clear Clear 07/18/2024 8:00 AM [facility] Color, Urine Dipstick Yellow Yellow, Dark Yellow 07/18/2024 8:00 AM [facility] CULTURE ADDED? 07/18/2024 8:00 AM [facility] Urine URINE SPECIMEN OBTAINED BY CLEAN CATCH PROCEDURE / Unknown Non Blood Collection / Unknown 07/18/2024 7:48 AM EST 07/18/2024 7:54 AM EST Albania Dutton MD URINE ORDERABLES [facility] [place] [address] * Magnesium (07/18/2024 7:45 AM EST) Magnesium 0.97 0.69 - 1.07 mMol/L 07/18/2024 8:[address] [facility] Blood VENOUS BLOOD SPECIMEN / Unknown Venipuncture / Unknown 07/18/2024 7:45 AM EST 07/18/2024 7:54 AM EST Narrative Authorizing Provider Result Levi Dutton MD CHEMISTRY ORDERA BLES Performing Organization Address City/[facility]/ZIP Co de Phone Number [facility] [place] [address] * Lactate Dehydrogenase (07/18/2024 7:45 AM EST) Lactate Dehydrogenase 176 110 - 220 unit/L 07/18/2024 8:[address] [facility] Blood VENOUS BLOOD SPECIMEN / Unknown Venipuncture / Unknown 07/18/2024 7:45 AM EST 07/18/2024 7:54 AM EST Albania Dutton MD CHEMISTRY ORDERA BLES Performing Organization Address City/[facility]/ZIP Co de Phone Number [facility] [place] [address] * (ABNORMAL) Comprehensive metabolic panel Non-fasting (07/18/2024 7:45 AM EST) Glucose 95 65 - 199 mg/dL 07/18/2024 8:[address] [facility] Comment:Glucose Concentratio n >=200 mg/dL plus symptoms is consistent with Diabetes Mellitus. Blood Urea Nitrogen 17 10 - 20 mg/dL 07/18/2024 8:[address] [facility] Creatinine 1.00 0.80 - 1.50 mg/dL 07/18/2024 8:[address] [facility] Sodium 139 135 - 145 mMol/L 07/18/2024 8:38 AM [facility] Potassium 4.5 3.5 - 5.0 mMol/L 07/18/2024 8:38 AM [facility] Chloride 104 98 - 107 mMol/L 07/18/2024 8:38 AM [facility] Carbon Dioxide 27 22 - 31 mMol/L 07/18/2024 8:38 AM [facility] Anion Gap 8 5 - 15 mMol/L 07/18/2024 8:38 AM [facility] Calcium 9.6 8.5 - 10.5 mg/dL 07/18/2024 8:38 AM [facility] Protein, Total 7.5 6.1 - 8.0 g/dL 07/18/2024 8:38 AM [facility] Albumin 4.3 3.2 - 5.2 g/dL 07/18/2024 8:38 AM [facility] Aspartate Aminotransferase 25 <=39 unit/L 07/18/2024 8:38 AM [facility] Alanine Aminotransferase 26 0 - 55 unit/L 07/18/2024 8:38 AM [facility] Alkaline Phosphatase 133(H) 40 - 130 unit/L 07/18/2024 8:38 AM [facility] Bilirubin, Total 0.3 <=1.3 mg/dL 07/18/2024 8:38 AM [facility] Est Glomerular Filtration Rate - Male 81 mL/min/1. 73 m?? 07/18/2024 8:38 AM [facility] Comment: This patient's estimated GFR [...] Calculator [employer] Fasting Status No 07/18/2024 8:38 AM [facility] Blood VENOUS BLOOD SPECIMEN / Unknown Venipuncture / Unknown 07/18/2024 7:45 AM EST 07/18/2024 7:54 AM EST Albania Dutton MD CHEMISTRY ORDERA BLES [facility] [place] [address] * (ABNORMAL) CBC (with Diff) (07/18/2024 7:45 AM EST) White Blood Cell 5.43 4.00 - 9.50 x10(3)/mc L 07/18/2024 8:11 AM [facility] Red Blood Cell 5.09 4.58 - 5.54 x10(6)/mc L 07/18/2024 8:11 AM [facility] Hemoglobin 13.8 13.7 - 16.5 g/dL 07/18/2024 8:11 AM [facility] Hematocrit 44.0 40.5 - 48.5 % 07/18/2024 8:11 AM [facility] Mean Cell Volume 86.4 82.9 - 93.1 fL 07/18/2024 8:11 AM [facility] Mean Cell Hemoglobin 27.1(L) 27.5 - 32.1 pg 07/18/2024 8:11 AM [facility] Mean Cell Hemoglobin Concentration 31.4(L) 32.0 - 35.7 g/dL 07/18/2024 8:11 AM [facility] Platelet 304 145 - 357 x10(3)/mc L 07/18/2024 8:11 AM [facility] Mean Platelet Volume 8.6 7.6 - 12.9 fL 07/18/2024 8:11 AM [facility] RDW Standard Deviation 73.9(H) 36.0 - 45.0 fL 07/18/2024 8:11 AM [facility] RDW coefficient of variation 23.8(H) 11.4 - 13.8 % 07/18/2024 8:11 AM [facility] NRBC% auto 0.0 % 07/18/2024 8:11 AM [facility] NRBC Absolute <0.01 <0.01 x10(3)/mc L 07/18/2024 8:11 AM [facility] Neutrophil % 61.9 % 07/18/2024 8:11 AM [facility] Neutrophil Absolute (ANC) - Automated 3.36 1.70 - 6.10 x10(3)/mc L 07/18/2024 8:11 AM [facility] Lymph % 24.3 % 07/18/2024 8:11 AM [facility] Lymph Absolute 1.32 0.90 - 3.20 x10(3)/mc L 07/18/2024 8:11 AM [facility] Monocyte % 10.1 % 07/18/2024 8:11 AM [facility] Monocyte Absolute 0.55 0.30 - 0.90 x10(3)/mc L 07/18/2024 8:11 AM [facility] Eos % 1.5 % 07/18/2024 8:11 AM [facility] Eos Absolute 0.08 0.00 - 0.40 x10(3)/mc L 07/18/2024 8:11 AM [facility] Basophil % 1.5 % 07/18/2024 8:11 AM [facility] Baso Absolute 0.08 0.00 - 0.10 x10(3)/mc L 07/18/2024 8:11 AM [facility] Immature Gran % 0.7 % 8:11 AM [facility] Immature Gran Absolute 0.04 0.00 - 0.04 x10(3)/mc L 07/18/2024 8:[address] [facility] Blood VENOUS BLOOD SPECIMEN / Unknown Venipuncture / Unknown 07/18/2024 7:45 AM EST 07/18/2024 7:54 AM EST [place] L Maicol Dutton MD HEMATOLOGY ORDER [facility] [place] [address] documented in this encounter Visit Diagnoses Diagnosis Non-small cell lung cancer, unspecified laterality Thymic carcinoma Malignant neoplasm of thymus documented in this encounter Care Teams Sound Recording Technician Relationship Specialty Start Date End Date America Caro MD [address] [place] [address] PCP - General Family Medicine 03/31/24 documented as of this encounter
--- OUTSIDE RECORDS SUMMARY | 2024-08-22 01:16 | XMS_ITS | Encounter Summary ---
Author Organization [facility] [place] [address] Care Team Providers Care Fire Support Specialist Name Role Phone America Caro MD Primary Care Provider [phone] Reason for Visit * Treatment/Therapy Plan Authorization (Routine) - Authorized Specialty Diagnoses / Procedures Referred By Contac t Referred To Contact Hematology and Oncology Diagnoses Thymic carcinoma Medication management Procedures INFUSION Albania Chahal MD [facility] DR HEMATOLOGY/[place] [address] [phone] Referral ID Status Reason Start Date Expiration Date V isits Requested Visits Authorized [id number] Authorized 05/30/2024 05/30/2025 1 102 Encounter Details Date Type Department Care Team (Late st Contact Info) Description 08/22/2024 9:00 AM EST Infusion Hematology Oncology at [address] [phone] Social History Tobacco Use Types Packs/Day Years Used Date Smoking Tobacco: Former Pipe Passive Smoke Exposure: Past Smokeless Tobacco: Never Comments:Smoke pipe for 10 y ears since 13 years old, Does still smoke pot but is slowing down. Passive Exposure Comments:Second hand smoke since 1433-2792 Alcohol Use Standard Drinks/Week Comments Yes 14 (1 standard drink = 0.6 oz pure alcohol) hardly any for the last month B1300 Health Literacy Answer Date Recor ded How often do you need to hav e someone help you when you read instructions, pamphlets, or other written material from your doctor or pharmacy? Never 05/04/2024 [facility] Utilities Answer Date Recorded In [...] any time in the past 12 m [facility], were you homeless or living in a long term (including now)? No 05/04/2024 Sex and Gender Information Value Date Recorded Sex Assigned at Not on file Gender Identity Not on file Sexual Orientation Not on file documented as of this encounter Plan of Treatment Upcoming Encounters Date Type Department Care Team (Late st Contact Info) Description 08/26/2024 11:30 AM EST Telephone Hematology [place] [phone] Aniya Saab, [facility] [place] [address] 09/11/2024 8:30 AM EST Laboratory Appointment Lab [place] [facility] [place] On[place] [address] [place] [phone] 09/11/2024 9:30 AM EST Office Visit Hematology [place] [address] Albania Chahal MD [facility] HEMATOLOGY/[place] [address] 09/11/2024 11:00 AM EST Appointment Hematology [place] [phone] 10/02/2024 7:45 AM EDT Laboratory Appointment Lab at [facility] [place] [address] [phone] 10/02/2024 9:[address] [place] [address] Albania Chahal MD [facility] HEMATOLOGY/[place] [address] 10/02/2024 10:30 AM EDT Office Visit Hematology [place] [address] Albania Chahal MD [facility] HEMATOLOGY/[place] [address] 10/02/2024 12:00 PM EDT Appointment Hematology [place] [address] documented as of this encounter Visit Diagnoses Not on filedocumented in this encounter Care Teams Fire Support Specialist Relationship Specialty Start Date End Date America Caro MD [address] [place] [address] PCP - General Family Medicine 03/31/24 documented as of this encounter
--- OUTSIDE RECORDS SUMMARY | 2024-08-22 01:16 | XMS_ITS | Encounter Summary ---
Author Organization [facility] Address [facility] [place] [address] Care Team Providers Care Regrind Mill Operator Name Role Phone America Caro MD Primary Care Provider [phone] Encounter Details Date Type Department Care Team (Late st Contact Info) Description 08/19/2024 Orders Only [place]ematology [place] [address] Albania Chahal MD [facility] DR HEMATOLOGY/[place] [address] Social History Tobacco Use Types Packs/Day Years Used Date Smoking Tobacco: Former Pipe Passive Smoke Exposure: Past Smokeless Tobacco: Never Comments:Smoke pipe for 10 y ears since 13 years old, Does still smoke pot but is slowing down. Passive Exposure Comments:Second hand smoke since 9760-4535 Alcohol Use Standard Drinks/Week Comments Yes 14 (1 standard drink = 0.6 oz pure alcohol) hardly any for the last month B1300 Health Literacy Answer Date Recor ded How often do you need to hav e someone help you when you read instructions, pamphlets, or other written material from your doctor or pharmacy? Never 05/04/2024 [facility] Utilities Answer Date Recorded In [...] AM EST Infusion Hematology Oncology at [address] [phone] 08/26/2024 11:30 AM EST Telephone [place]ematology [place] [address] [facility] [place] [address] 09/11/2024 8:30 AM EST Laboratory Appointment Lab at [facility] Hematology Oncology [address] [place] [phone] 09/11/2024 9:30 AM EST Office Visit Hematology [place] [phone] Albania Chahal MD [facility] HEMATOLOGY/[place] [address] 09/11/2024 11:00 AM EST Appointment Hematology [place] [address] 10/02/2024 7:45 AM EDT Laboratory Appointment Lab at [facility] Hematology Oncology [address] [place] [phone] 10/02/2024 9:[address] [place] [address] Albania Chahal MD [facility] HEMATOLOGY/[place] [address] 10/02/2024 10:30 AM EDT Office Visit Hematology and Oncology at [place] [phone] Albania Chahal MD [facility] HEMATOLOGY/[place] [address] 10/02/2024 12:00 PM EDT Appointment Hematology [place] [address] documented as of this encounter Visit Diagnoses Not on filedocumented in this encounter Care Teams Regrind Mill Operator Relationship Specialty Start Date End Date America Caro MD [address] [place] [address] PCP - General Family Medicine 03/31/24 documented as of this encounter
--- OUTSIDE RECORDS SUMMARY | 2024-08-22 01:16 | XMS_ITS | Encounter Summary ---
Author Organization [facility] Address [facility] [place] [address] Care Team Providers Care Financial Systems Manager Name Role Phone America Caro MD Primary Care Provider [phone] Encounter Details Date Type Department Care Team (Late st Contact Info) Description 07/01/2024 Orders Only [place] [address] Albania Chahal MD [facility] DR HEMATOLOGY/[place] [address] Social History Tobacco Use Types Packs/Day Years Used Date Smoking Tobacco: Former Pipe Passive Smoke Exposure: Past Smokeless Tobacco: Never Comments:Smoke pipe for 10 y ears since 13 years old, Does still smoke pot but is slowing down. Passive Exposure Comments:Second hand smoke since 2167-7713 Alcohol Use Standard Drinks/Week Comments Yes 14 (1 standard drink = 0.6 oz pure alcohol) hardly any for the last month B1300 Health Literacy Answer Date Recor ded How often do you need to hav e someone help you when you read instructions, pamphlets, or other written material from your doctor or pharmacy? Never 05/04/2024 [facility] Utilities Answer Date Recorded In [...] any time in the past 12 m [facility], were you homeless or living in a [...] Infusion Hematology Oncology at [address] [address] 08/26/2024 11:30 AM EST Telephone [place] [address] [facility] [place] [place] [address] 09/11/2024 8:30 AM EST Laboratory Appointment Lab at [facility] Hematology Oncology [address] [place] [phone] 09/11/2024 9:30 AM EST Office Visit [place] [phone] Albania Chahal MD [facility] [place] [address] 09/11/2024 11:00 AM EST Appointment [place] [address] 10/02/2024 7:45 AM EDT Laboratory Appointment Lab at [facility] Hematology Oncology [address] [place] [phone] 10/02/2024 9:[address] [place] [place] [address] Albania Chahal MD [facility] [place]OLOG[place] [address] 10/02/2024 10:30 AM EDT Office Visit Hematology and Oncology at [place] [phone] Albania Chahal MD [facility] [place]OLOG[place] [address] 10/02/2024 12:00 PM EDT Appointment [place]ology [place] [address] documented as of this encounter Visit Diagnoses Not on filedocumented in this encounter Care Teams Financial Systems Manager Relationship Specialty Start Date End Date America Caro MD [address] [place] [address] PCP - General Family Medicine 03/31/24 documented as of this encounter
--- OUTSIDE RECORDS SUMMARY | 2024-08-22 01:16 | XMS_ITS | Encounter Summary ---
Author Organization [facility] Address [facility] [place] [address] Care Team Providers Care Home Service Technician Name Role Phone America Caro MD Primary Care Provider Encounter Details Date Type Department Care Team (Latest Contact Info) Description 07/03/2024 Travel Social History Tobacco Use Types Packs/Day Years Used Date Smoking Tobacco: Former Pipe Passive Smoke Exposure: Past Smokeless Tobacco: Never Comments:Smoke pipe for 10 y ears since 13 years old, Does still smoke pot but is slowing down. Passive Exposure Comments:Second hand smoke since 3730-9792 Alcohol Use Standard Drinks/Week Comments Yes 14 (1 standard drink = 0.6 oz pure alcohol) hardly any for the last month B1300 Health Literacy Answer Date Recor ded How often do you need to hav e someone help you when you read instructions, pamphlets, or other written material from your doctor or pharmacy? Never 05/04/2024 [facility] Utilities Answer Date Recorded In the past 12 months has [employer], gas, oil, or water [employer] threatened to shut off services in your [...] in the past 12 m [facility], were you homeless or living in [...] AM EST Infusion Hematology Oncology at [address] [address] 08/26/2024 11:30 AM EST Telephone Hematology [place] [phone] [facility] [place] [address] 09/11/2024 8:30 AM EST Laboratory Appointment Lab at [facility] Hematology Oncology [address] [place] [phone] 09/11/2024 9:30 AM EST Office Visit Hematology [place] [phone] Albania Chahal MD [facility] HEMATOLOGY/[place] [address] 09/11/2024 11:00 AM EST Appointment Hematology [place] [phone] 10/02/2024 7:45 AM EDT Laboratory Appointment Lab at [facility] Hematology Oncology [address] [place] [phone] 10/02/2024 9:[address] [place] [phone] Albania Chahal MD [facility] HEMATOLOGY[place] [address] 10/02/2024 10:30 AM EDT Office Visit Hematology [place] [phone] Albania Chahal MD [facility] HEMATOLOGY[place] [address] 10/02/2024 12:00 PM EDT Appointment Hematology and Oncology at [place] [phone] documented as of this encounter Visit Diagnoses Not on filedocumented in this encounter Care Teams Home Service Technician Relationship Specialty Start Date End Date America Caro MD [address] [place] [address] PCP - General Family Medicine 03/31/24 documented as of this encounter
--- OUTSIDE RECORDS SUMMARY | 2024-08-22 01:16 | XMS_ITS | Clinical Summary ---
Author Organization [facility] Address [facility] [place] [address] Care Team Providers Care Principal Trainer Name Role Phone America Caro MD Primary Care Provider [phone] Allergies Active Allergy Reactions Criticality Noted Date Comments Ramucirumab Hives,Itching Medium 06/05/2024 After 98.5mL of Ramurcirumab, pt reported itching. Pt had hives and redness on bilateral upper arms, lower abdomen, upper back, bilateral flank. Hives itching and redness moved down arms and back, up abdomen and was noted on knees. (See note from 06/05/24) See note from 07/18/2024 for second reaction. Medications Medication Sig Dispensed Refills Start Date End Date Status cholecalciferol, Vitamin D3, 25 mcg (1,000 unit) Capsule take 1 capsule po qd. 03/28/2018 Active colchicine (Colcrys) 0.6 mg tablet Take 1 tablet by mouth Daily at Noon. 04/10/2024 Active acetaminophen (Tylenol) 325 mg tablet Take 650 mg by mouth every 4 hours as needed for Pain. Active furosemide (Lasix) 20 mg tablet Take 20 mg by mouth daily. 04/17/2024 Active hydrOXYzine (Atarax) 10 mg tablet Take orally 10 mg at night, can take up to 2 pills (20 mg) 30 tablet 5 07/04/2024 Active triamcinolone (Kenalog) 0.1 % Cream Apply thin amount topically twice daily to trunk and extremities x 14 days, take week off, repeat if needed for rash 453.6 g 2 07/04/2024 Active prochlorperazine (Compazine) 10 mg tablet Take 1 tablet by mouth every 6 hours as needed for Nausea. 15 tablet 07/18/2024 Active senna (Senokot) 8.6 mg tablet Take 2 tablets by mouth daily. 60 tablet 11 07/24/2024 Active polyethylene glycoL (Miralax) 17 gram oral powder packet Take 17 g by mouth daily. 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 Cancer Staging:Clinical:Stage IVB(cN3, cM1c) - Signed by Albania Chahal MD on 05/06/2024 Encounters Date Type Department Care Team Description 08/22/2024 9:00 AM EST Infusion Hematology Oncology at [address] [phone] 08/21/2024 Travel 08/19/2024 9:00 AM EST TH Visit (TeleHealth) [place] [address] Albania Chahal MD Thymic carcinoma 08/19/2024 Orders Only [place]emat[place] [address] Albania Chahal MD 08/04/2024 Ancillary Procedure Radiology Library at [facility] [place] [address] America Caro MD 07/25/2024 Orders Only [place] [address] Albania Chahal MD Thymic carcinoma 07/24/2024 7:43 AM EST - 07/24/2024 11:59 PM EST Hospital Encounter [place]emat[place] [address] Thymic carcinoma Discharge Disposition: Home 07/24/2024 Orders Only Hematology and Oncology at [place] [phone] Albania Chahal MD 07/24/2024 Orders Only [place] [address] Albania Chahal MD Thymic carcinoma 07/24/2024 Travel 07/22/2024 Telephone [place]ematology [place] [phone] Tia Becerra RN 07/18/2024 9:00 AM EST Office Visit [place]ematology [place] [phone] Albania Chahal MD Thymic carcinoma 07/18/2024 7:45 AM EST Laboratory Appointment Lab at [facility] Hematology Oncology [address] [place] [phone] Non-small cell lung cancer, unspecified laterality; Thymic carcinoma 07/18/2024 7:33 AM EST - 07/18/2024 11:59 PM EST Hospital Encounter [place] [phone] Thymic carcinoma; Medication management Discharge Disposition: Home 07/18/2024 Travel 07/17/2024 Telephone [place] [address] Rose Roe, ANALI 07/15/2024 Travel 07/03/2024 11:00 AM EST Office Visit Dermatology at [facility] [address] [place] [phone] Chrystal Garza MD Morbilliform rash 07/03/2024 Travel 07/01/2024 Orders Only [place] [address] Albania Chahal MD 07/01/2024 Telephone Hematology and Oncology at [place] [phone] Rose Roe, ANALI 06/26/2024 9:30 AM EST Clinical Support Hematology and Oncology at [place] [phone] Non-small cell cancer of left lung 06/26/2024 8:00 AM EST Office Visit [place] [phone] Albania Chahal MD Thymic carcinoma; Medication management 06/26/2024 7:00 AM EST Laboratory Appointment Lab at [facility] Hematology [address] [phone] Thymic carcinoma; Non-small cell lung cancer, unspecified laterality 06/26/2024 6:46 AM EST - 06/26/2024 11:59 PM EST Hospital Encounter [place] [address] Thymic carcinoma Discharge Disposition: Home 06/26/2024 Travel 06/20/2024 Travel 06/17/2024 Notes Only [place] [phone] Anna Reed 06/06/2024 Telephone Hematology and Oncology at [place] [phone] Tali Barnard, RN 06/05/2024 2:00 PM EST Clinical Support [place] [address] Thymic carcinoma 06/05/2024 10:30 AM EST Office Visit Hematology and Oncology at [place] [phone] Albania Chahal MD Thymic carcinoma; Medication management 06/05/2024 9:15 AM EST Laboratory Appointment Lab at [facility] Hematology Oncology [address] [place] [address] Thymic carcinoma; Non-small cell lung cancer, unspecified laterality 06/05/2024 9:07 AM EST - 06/05/2024 11:59 PM EST Hospital Encounter Hematology and Oncology at [place] [phone] Thymic carcinoma Discharge Disposition: Home 06/05/2024 Unscheduled Encounter Hematology and Oncology at [place] [phone] Albania Chahal MD Thymic carcinoma 06/05/2024 Travel 06/04/2024 Travel 06/02/2024 Telephone Hematology and Oncology at [place] [phone] Tia Becerra, RN 05/30/2024 9:00 AM EST Infusion Hematology Oncology at [address] [phone] Non-small cell lung cancer, unspecified laterality 05/30/2024 External Results Hematology and Oncology at [place] [phone] Sharon Roman, RN 05/30/2024 Travel 05/28/2024 Telephone Hematology and Oncology at [place] [phone] Rose Roe, ANALI 05/28/2024 Orders Only Hematology and Oncology at [place] [phone] Albania Chahal MD Non-small cell lung cancer, unspecified laterality 05/27/2024 9:30 AM EST Laboratory [place] [address] 05/26/2024 Telephone [place]ology [place] [address] Tia Becerra, RN 05/23/2024 Telephone [place]ology [place] [address] Tia Becerra, RN 05/23/2024 Orders Only Hematology and Oncology at [facility] [address] [place] [address] Albania Chahal MD Skin rash 05/23/2024 Travel from Last 3 Months Social History Tobacco Use Types Packs/Day Years Used Date Smoking Tobacco: Former Pipe Passive Smoke Exposure: Past Smokeless Tobacco: Never Tobacco Cessation:Counseling Given: Not Answered Comments:Smoke pipe for 10 years since 13 years old, Does still smoke pot but is slowing down. Passive Exposure Comments:Second hand smoke since 8109-1254 Alcohol Use Standard Drinks/Week Comments Yes 14 (1 standard drink = 0.6 oz pure alcohol) hardly any for the last month B1300 Health Literacy Answer Date Recor ded How often do you need to hav e someone help you when you read instructions, pamphlets, or other written material from your doctor or pharmacy? Never 05/04/2024 [facility] Utilities Answer Date Recorded In the past 12 months has th e [employer], gas, oil, or water [employer] threatened to shut off services in your [...] any time in the past 12 m [facility], were you homeless or living in a longterm (including now)? No 05/04/2024 Sex and Gender Information Value Date Recorded Sex Assigned at Not on file Gender Identity Not on file Sexual Orientation Not on file Last Filed Vital Signs Vital Sign Reading Time Taken Comments Blood Pressure 134/90 07/24/2024 8:14 AM EST Pulse 59 07/24/2024 8:14 AM EST Temperature 36.2 ??C (97.1 ??F) 07/24/2024 8:14 AM ES T Respiratory Rate 16 07/24/2024 8:14 AM EST Oxygen Saturation 96% 07/24/2024 8:14 AM EST Inhaled Oxygen Concentration - - Weight 65.4 kg (144 lb 3.2 oz) 07/24/2024 8:14 A M EST Height 161.2 cm (5' 3.47) 07/24/2024 8:14 AM ES T Body Mass Index 25.17 07/24/2024 8:14 AM EST Plan of Treatment Upcoming Encounters Date Type Department Care Team (Late st Contact Info) Description 08/22/2024 9:00 AM EST Infusion Hematology Oncology at [address] [phone] 08/26/2024 11:30 AM EST Telephone [place]emat[place] [phone] [facility] [place] [address] 09/11/2024 8:30 AM EST Laboratory Appointment Lab at [facility] Hematology Oncology [address] [place] [phone] 09/11/2024 9:30 AM EST Office Visit [place] [phone] Albania Chahal MD [facility] HEMATOLOGY/[place] [address] 09/11/2024 11:00 AM EST Appointment Hematology [place] [address] 10/02/2024 7:45 AM EDT Laboratory Appointment Lab at [facility] Hematology Oncology [address] [place] [phone] 10/02/2024 9:[address] [place] [phone] Albania Chahal MD [facility] HEMATOLOGY/[place] [address] 10/02/2024 10:30 AM EDT Office Visit [place]ematology [place] [phone] Albania Chahal MD [facility] HEMATOLOGY/[place] [address] 10/02/2024 12:00 PM EDT Appointment [place]ology [place] [phone] Health Maintenance Due Date Last Done Comments CT Colonography 1953 Colonoscopy 1953 Colorectal Cancer Screening 1953 FIT DNA 1953 FIT 1953 Sigmoidoscopy (10 year) with FIT yearly 1953 Sigmoidoscopy 1953 Hepatitis C Screening 11/23/1971 Lipid Screening 11/23/1971 Tetanus/Diphtheria/Pertussis Vaccines (1 - Tdap) 1972 Pneumoccocal Vaccine: 50+ (1 of 1 - PCV) 11/23/2003 Zoster vaccine (1 of 2) 11/23/2003 AAA Screen 2018 Covid-19 Vaccine ( - 2023-2 5 season) 2024 Influenza (Flu) vaccine (1 o f 1 - Influenza standard series) 03/16/2024 Diabetes Screening (HgbA1C o r Glucose) 07/24/2027 07/24/2024, 07/18/2024, 06/26/2024, Additional history exists Procedures Procedure Name Priority Date/Time Associated Diagnosis Comments FILM LIBRARY STORAGE ONLY CT CHEST ABDOMEN PELVIS Routine 08/04/2024 12:00 AM EST DIAGNOSTIC RADIOLOGY SCAN 08/04/2024 12:00 AM EST COMPREHENSIVE METABOLIC PANEL Routine 07/24/2024 8:31 AM EST Thymic carcinoma CBC (WITH DIFF) Routine 07/24/2024 8:31 AM EST Thymic carcinoma MAGNESIUM STAT 07/24/2024 8:31 AM EST Thymic carcinoma URINALYSIS DIPSTICK STAT 07/18/2024 7 :48 AM EST Thymic carcinoma MAGNESIUM STAT 07/18/2024 7:45 AM EST Thymic carcinoma LACTATE DEHYDROGENASE STAT 07/18/2024 7:45 AM EST Thymic carcinoma COMPREHENSIVE METABOLIC PANEL STAT 07/18/2024 7:45 AM EST Thymic carcinoma CBC (WITH DIFF) STAT 07/18/2024 7:45 AM EST Thymic carcinoma TSH Add-On 06/26/2024 6:56 AM EST Thymic carcinoma Medication management SCAN, PERIPHERAL BLOOD KARINA 6:56 AM EST Thymic carcinoma CBC (WITH DIFF) STAT 06/26/2024 6:56 AM EST Thymic carcinoma COMPREHENSIVE METABOLIC PANEL STAT 06/26/2024 6:56 AM EST Thymic carcinoma LACTATE DEHYDROGENASE STAT 06/26/2024 6:56 AM EST Thymic carcinoma URINALYSIS DIPSTICK STAT 06/26/2024 6 :56 AM EST Thymic carcinoma MAGNESIUM STAT 06/26/2024 6:56 AM EST Thymic carcinoma URINALYSIS DIPSTICK STAT 06/05/2024 1 0:10 AM EST Thymic carcinoma CBC (WITH DIFF) STAT 06/05/2024 9:15 AM EST Thymic carcinoma COMPREHENSIVE METABOLIC PANEL STAT 06/05/2024 9:15 AM EST Thymic carcinoma LACTATE DEHYDROGENASE STAT 06/05/2024 9:15 AM EST Thymic carcinoma MAGNESIUM STAT 06/05/2024 9:15 AM EST Thymic carcinoma EXTERNAL LAB CBC CMP THYROID RESULTS PANEL Routine 05/28/2024 9:58 AM EST LAB SCAN 05/28/2024 12:00 AM EST from Last 3 Months Results * Scan Doc: Diagnostic Radiology (08/04/2024 12:00 AM EST) Anatomical Region Laterality Modality Other Narrative 08/04/2024 12:00 AM EST Ordered by an unspecified provider. Scanning Provider MEDIA MGR SCAN EXT O RDR/RSLT * Film Library- Storage Only CT Chest Abdomen Pelvis (08/04/2024 12:00 AM EST) Narrative RAD - 08/05/2024 4:51 AM EST This exam is auto-finalizing. It's purpose is for storage only. America Caro MD [facility] FILM LIBRARY ORD ERABLES [facility] [place] * (ABNORMAL) CBC (with Diff) (07/24/2024 8:31 AM EST) Only the most recent of4 resultswithin the time period is included. White Blood Cell 5.92 4.00 - 9.50 x10(3)/mc L 07/24/2024 9:06 AM EST [facility] Red Blood Cell 5.13 4.58 - 5.54 x10(6)/mc L 07/24/2024 9:06 AM [facility] Hemoglobin 14.4 13.7 - 16.5 g/dL 07/24/2024 9:06 AM [facility] Hematocrit 44.7 40.5 - 48.5 % 07/24/2024 9:06 AM [facility] Mean Cell Volume 87.1 82.9 - 93.1 fL 07/24/2024 9:06 AM [facility] Mean Cell Hemoglobin 28.1 27.5 - 32.1 pg 07/24/2024 9:06 AM [facility] Mean Cell Hemoglobin Concentration 32.2 32.0 - 35.7 g/dL 07/24/2024 9:06 AM [facility] Platelet 239 145 - 357 x10(3)/mc L 07/24/2024 9:06 AM [facility] Mean Platelet Volume 10.5 7.6 - 12.9 fL 07/24/2024 9:06 AM [facility] RDW Standard Deviation 73.5(H) 36.0 - 45.0 fL 07/24/2024 9:06 AM [facility] RDW coefficient of variation 23.7(H) 11.4 - 13.8 % 07/24/2024 9:06 AM [facility] NRBC% auto 0.0 % 07/24/2024 9:06 AM [facility] NRBC Absolute <0.01 <0.01 x10(3)/mc L 07/24/2024 9:06 AM [facility] Neutrophil % 64.5 % 07/24/2024 9:06 AM [facility] Neutrophil Absolute (ANC) - Automated 3.82 1.70 - 6.10 x10(3)/mc L 07/24/2024 9:06 AM [facility] Lymph % 24.2 % 07/24/2024 9:06 AM [facility] Lymph Absolute 1.43 0.90 - 3.20 x10(3)/mc L 07/24/2024 9:06 AM [facility] Monocyte % 8.6 % 07/24/2024 9:06 AM [facility] Monocyte Absolute 0.51 0.30 - 0.90 x10(3)/mc L 07/24/2024 9:06 AM [facility] Eos % 1.7 % 07/24/2024 9:06 AM [facility] Eos Absolute 0.10 0.00 - 0.40 x10(3)/mc L 07/24/2024 9:06 AM [facility] Basophil % 0.7 % 07/24/2024 9:06 AM [facility] Baso Absolute 0.04 0.00 - 0.10 x10(3)/mc L 07/24/2024 9:06 AM [facility] Immature Gran % 0.3 % 9:06 AM [facility] Immature Gran Absolute <0.04 0.00 - 0.04 x10(3)/mc L 07/24/2024 9:06 AM [facility] Blood VENOUS BLOOD SPECIMEN / Unknown Venipuncture / Unknown 07/24/2024 8:31 AM EST 07/24/2024 8:42 AM EST Albaina Dutton MD HEMATOLOGY ORDER HERBERTH [facility] [place] [address] * Magnesium (07/24/2024 8:31 AM EST) Only the most recent of4 resultswithin the time period is included. Magnesium 1.04 0.69 - 1.07 mMol/L 07/24/2024 9:20 AM [facility] Blood VENOUS BLOOD SPECIMEN / Unknown Venipuncture / Unknown 07/24/2024 8:31 AM EST 07/24/2024 8:42 AM EST Albania Dutton MD CHEMISTRY ORDERA BLES [facility] [place] [address] * (ABNORMAL) Comprehensive metabolic panel Non-fasting (07/24/2024 8:31 AM EST) Only the most recent of4 resultswithin the time period is included. Glucose 78 65 - 199 mg/dL 07/24/2024 9:20 AM [facility] Comment:Glucose Concentratio n >=200 mg/dL plus symptoms is consistent with Diabetes Mellitus. Blood Urea Nitrogen 16 10 - 20 mg/dL 07/24/2024 9:20 AM [facility] Creatinine 0.89 0.80 - 1.50 mg/dL 07/24/2024 9:20 AM [facility] Sodium 137 135 - 145 mMol/L 07/24/2024 9:20 AM [facility] Potassium 4.3 3.5 - 5.0 mMol/L 07/24/2024 9:20 AM [facility] Chloride 101 98 - 107 mMol/L 07/24/2024 9:20 AM [facility] Carbon Dioxide 25 22 - 31 mMol/L 07/24/2024 9:20 AM [facility] Anion Gap 11 5 - 15 mMol/L 07/24/2024 9:20 AM [facility] Calcium 9.4 8.5 - 10.5 mg/dL 07/24/2024 9:20 AM [facility] Protein, Total 7.6 6.1 - 8.0 g/dL 07/24/2024 9:20 AM [facility] Albumin 4.2 3.2 - 5.2 g/dL 07/24/2024 9:20 AM [facility] Aspartate Aminotransferase 28 <=39 unit/L 07/24/2024 9:20 AM [facility] Alanine Aminotransferase 22 0 - 55 unit/L 07/24/2024 9:20 AM [facility] Alkaline Phosphatase 134(H) 40 - 130 unit/L 07/24/2024 9:20 AM [facility] Bilirubin, Total 0.4 <=1.3 mg/dL 07/24/2024 9:20 AM [facility] Est Glomerular Filtration Rate - Male 92 mL/min/1. 73 m?? 07/24/2024 9:20 AM [facility] Comment: This [...] Calculator [employer] Fasting Status No 07/24/2024 9:20 AM [facility] Blood VENOUS BLOOD SPECIMEN / Unknown Venipuncture / Unknown 07/24/2024 8:31 AM EST 07/24/2024 8:42 AM EST Albania Dutton MD CHEMISTRY ORDERA BLES [facility] [place] [address] * Urinalysis Dipstick (07/18/2024 7:48 AM EST) Only the most recent of3 resultswithin the time period is included. Glucose, Urine Dipstick Negative Negative 07/18/2024 8:00 AM EST [facility] Protein, Urine Dipstick Negative Negative 07/18/2024 8:00 AM [facility] Bilirubin, Urine Dipstick Negative Negative 07/18/2024 8:00 AM [facility] Comment:Clinical correlation required for positive Urine Bilirubin results as false positive may occur with some drugs and drug related products. If a false positive is suspected a serum total bilirubin should be considered if clinically indicated. Urobilinogen, Urine Dipstick Normal Normal, 0.2 mg/dL, 1.0 mg/dL 07/18/2024 8:00 AM [facility] pH, Urine (dipstick) 6.0 5.0 - 8.0 07/18/2024 8:00 AM [facility] Blood, Urine Dipstick Negative Negative 07/18/2024 8:00 AM [facility] Ketone, Urine Dipstick Negative Negative 07/18/2024 8:00 AM [facility] Nitrite, Urine Dipstick Negative Negative 07/18/2024 8:00 AM [facility] Leukocytes, Urine Dipstick Negative Negative 07/18/2024 8:00 AM [facility] Specific [place] Urine Automated 1.020 1.005 - 1.030 07/18/2024 8:00 AM [facility] Appearance, Urine Dipstick Clear Clear 07/18/2024 8:00 AM [facility] Color, Urine Dipstick Yellow Yellow, Dark Yellow 07/18/2024 8:00 AM [facility] CULTURE ADDED? 07/18/2024 8:00 AM [facility] Urine URINE SPECIMEN OBTAINED BY CLEAN CATCH PROCEDURE / Unknown Non Blood Collection / Unknown 07/18/2024 7:48 AM EST 07/18/2024 7:54 AM EST Narrative Authorizing Provider Result Levi Dutton MD URINE ORDERABLES [facility] [place] [address] * Lactate Dehydrogenase (07/18/2024 7:45 AM EST) Only the most recent of3 resultswithin the time period is included. Lactate Dehydrogenase 176 110 - 220 unit/L 07/18/2024 8:38 AM EST [facility] Blood VENOUS BLOOD SPECIMEN / Unknown Venipuncture / Unknown 07/18/2024 7:45 AM EST 07/18/2024 7:54 AM EST Albania Dutton MD CHEMISTRY ORDERA BLES Performing Organization Address [facility] Co de Phone Number [facility] [place] [address] * Scan, Peripheral Blood (06/26/2024 6:56 AM EST) RBC Morphology Abnormal 06/26/2024 7:38 AM [facility] Platelet Estimate Normal Normal 06/26/2024 7:38 AM EST [facility] Macrocyte 1-5 /HPF 06/26/2024 7:38 AM EST [facility] Microcyte 1-5 /HPF 06/26/2024 7:38 AM EST [facility] Ovalocytes 1-5 /HPF 06/26/2024 7:38 AM EST [facility] Blood VENOUS BLOOD SPECIMEN / Unknown Venipuncture / Unknown 06/26/2024 6:56 AM EST 06/26/2024 7:04 AM EST Albania Dutton MD HEMATOLOGY ORDER HERBERTH Performing Organization Address City/[facility] Co de Phone Number [facility] [place] [address] * TSH (06/26/2024 6:56 AM EST) Thyroid Stimulating Hormone 3.58 0.27 - 4.20 mcIU/mL 06/26/2024 9:50 AM EST [facility] Blood VENOUS BLOOD SPECIMEN / Unknown Venipuncture / Unknown 06/26/2024 6:56 AM EST 06/26/2024 7:04 AM EST Albania Dutton MD CHEMISTRY TARAHA RYANN [facility] [place] [address] * (ABNORMAL) CBC / CMP / Thyroid External Results (05/28/2024 9:58 AM EST) WBC - External 3.86 RBC - External 4.21 Hemoglobin - External 10.7 Hematocrit - External 33.9 Platelets - External 512 Neutr ABS (ANC) - External 2.29 Sodium - External 142 Potassium - External 3.7 Chloride - External 104 CO2 - External 29.4 Blood Urea Nitrogen - External 21 Creatinine - External 0.9 EGFR - External 91.88 Glucose Lvl - External 86 Calcium - External 9.2 Protein, Total - External 7.6 Albumin - External 2.6 Total Bilirubin - External 0.26 Alk Phos - External 262 AST (SGOT) - External 28 ALT (SGPT) - External 48 LDH - External 144 05/28/2024 9:58 AM EST Historical Provider EXTERNAL LAB SURINDER VENCES * Scan Doc: Lab (05/28/2024 12:00 AM EST) Narrative 05/28/2024 12:00 AM EST Ordered by an unspecified provider. Scanning Provider MEDIA MGR SCAN EXT O RDR/RSLT from Last 3 Months Advance Directives Documents on File Type Date Recorded Patient Overnight Houseperson Expl anation Advance Directives and Living Will 05/29/2024 9:05 AM Health Care Agwnt, Treatment Wishes, Agent as Guardian Care Teams Principal Trainer Relationship Specialty Start Date End Date America Caro MD [address] [place] [address] PCP - General Family Medicine 03/31/24
--- OUTSIDE RECORDS SUMMARY | 2024-08-22 01:16 | XMS_ITS | Encounter Summary ---
Author Organization [facility] Address [facility] [place] [address] Care Team Providers Care New Car Salesperson Name Role Phone America Caro MD Primary Care Provider [phone] Encounter Details Date Type Department Care Team (Late st Contact Info) Description 07/24/2024 Orders Only Hematology [place] [address] Albania Chahal MD [facility] DR HEMATOLOGY/[place] [address] Thymic carcinoma Social History Tobacco Use Types Packs/Day Years Used Date Smoking Tobacco: Former Pipe Passive Smoke Exposure: Past Smokeless Tobacco: Never Comments:Smoke pipe for 10 y ears since 13 years old, Does still smoke pot but is slowing down. Passive Exposure Comments:Second hand smoke since 0427-7913 Alcohol Use Standard Drinks/Week Comments Yes 14 (1 standard drink = 0.6 oz pure alcohol) hardly any for the last month B1300 Health Literacy Answer Date Recor ded How often do you need to hav e someone help you when you read instructions, pamphlets, or other written material from your doctor or pharmacy? Never 05/04/2024 [facility] Utilities Answer Date Recorded In the past [...] time in the past 12 m [facility], were you homeless or living in a nursing home (including now)? No 05/04/2024 Sex and Gender Information Value Date Recorded Sex Assigned at Not on file Gender Identity Not on file Sexual Orientation Not on file documented as of this encounter Plan of Treatment Upcoming Encounters Date Type Department Care Team (Late st Contact Info) Description 08/22/2024 9:00 AM EST Infusion Hematology Oncology at [address] [address] 08/26/2024 11:30 AM EST Telephone Hematology [place] [address] [facility] [place] [address] 09/11/2024 8:30 AM EST Laboratory Appointment Lab at [facility] Hematology Oncology [address] [place] [phone] 09/11/2024 9:30 AM EST Office Visit Hematology [place] [phone] Albania Chahal MD [facility] HEMATOLOGY/[place] [address] 09/11/2024 11:00 AM EST Appointment Hematology [place] [phone] 10/02/2024 7:45 AM EDT Laboratory Appointment Lab at [facility] Hematology Oncology [address] [place] [phone] 10/02/2024 9:[address] [place] [phone] Albania Chahal MD [facility] HEMATOLOGY/[place] [address] 10/02/2024 10:30 AM EDT Office Visit Hematology [place] [phone] Albania Chahal MD [facility] HEMATOLOGY[place] [address] 10/02/2024 12:00 PM EDT Appointment Hematology [place] [phone] documented as of this encounter Results * (ABNORMAL) Comprehensive metabolic panel Non-fasting (07/24/2024 8:31 AM EST) [facility] Glucose 78 65 - 199 mg/dL 07/24/2024 9:20 AM EST [facility] Comment:Glucose Concentratio n >=200 mg/dL plus symptoms is consistent with Diabetes Mellitus. Blood Urea Nitrogen 16 10 - 20 mg/dL 07/24/2024 9:20 AM EST [facility] Creatinine 0.89 0.80 - 1.50 mg/dL 07/24/2024 9:20 AM EST [facility] Sodium 137 135 - 145 mMol/L 07/24/2024 9:20 AM [facility] Potassium 4.3 3.5 - 5.0 mMol/L 07/24/2024 9:20 AM [facility] Chloride 101 98 - 107 mMol/L 07/24/2024 9:20 AM [facility] Carbon Dioxide 25 22 - 31 mMol/L 07/24/2024 9:20 AM [facility] Anion Gap 11 5 - 15 mMol/L 07/24/2024 9:20 AM [facility] Calcium 9.4 8.5 - 10.5 mg/dL 07/24/2024 9:20 AM [facility] Protein, Total 7.6 6.1 - 8.0 g/dL 07/24/2024 9:20 AM [facility] Albumin 4.2 3.2 - 5.2 g/dL 07/24/2024 9:20 AM [facility] Aspartate Aminotransferase 28 <=39 unit/L 07/24/2024 9:20 AM [facility] Alanine Aminotransferase 22 0 - 55 unit/L 07/24/2024 9:20 AM [facility] Alkaline Phosphatase 134(H) 40 - 130 unit/L 07/24/2024 9:20 AM [facility] Bilirubin, Total 0.4 <=1.3 mg/dL 07/24/2024 9:20 AM [facility] Est Glomerular Filtration Rate - Male 92 mL/min/1. 73 m?? 07/24/2024 9:20 AM [facility] Comment: This patient's estimated GFR [...] Foundation Fasting Status No 07/24/2024 9:20 AM [facility] Blood VENOUS BLOOD SPECIMEN / Unknown Venipuncture / Unknown 07/24/2024 8:31 AM EST 07/24/2024 8:42 AM EST Albania Dutton MD CHEMISTRY ORDERA BLES [facility] [place] [address] * (ABNORMAL) CBC (with Diff) (07/24/2024 8:31 AM EST) White Blood Cell 5.92 4.00 - 9.50 x10(3)/mc L 07/24/2024 9:06 AM [facility] Red Blood Cell 5.13 4.58 - 5.54 x10(6)/mc L 07/24/2024 9:06 AM [facility] Hemoglobin 14.4 13.7 - 16.5 g/dL 07/24/2024 9:06 AM [facility] Hematocrit 44.7 40.5 - 48.5 % 07/24/2024 9:06 AM [facility] Mean Cell Volume 87.1 82.9 - 93.1 fL 07/24/2024 9:06 AM [facility] Mean Cell Hemoglobin 28.1 27.5 - 32.1 pg 07/24/2024 9:06 AM [facility] Mean Cell Hemoglobin Concentration 32.2 32.0 - 35.7 g/dL 07/24/2024 9:06 AM [facility] Platelet 239 145 - 357 x10(3)/mc L 07/24/2024 9:06 AM [facility] Mean Platelet Volume 10.5 7.6 - 12.9 fL 07/24/2024 9:06 AM [facility] RDW Standard Deviation 73.5(H) 36.0 - 45.0 fL 07/24/2024 9:06 AM [facility] RDW coefficient of variation 23.7(H) 11.4 - 13.8 % 07/24/2024 9:06 AM [facility] NRBC% auto 0.0 % 07/24/2024 9:06 AM [facility] NRBC Absolute <0.01 <0.01 x10(3)/mc L 07/24/2024 9:06 AM [facility] Neutrophil % 64.5 % 07/24/2024 9:06 AM [facility] Neutrophil Absolute (ANC) - Automated 3.82 1.70 - 6.10 x10(3)/mc L 07/24/2024 9:06 AM [facility] Lymph % 24.2 % 07/24/2024 9:06 AM [facility] Lymph Absolute 1.43 0.90 - 3.20 x10(3)/mc L 07/24/2024 9:06 AM [facility] Monocyte % 8.6 % 07/24/2024 9:06 AM [facility] Monocyte Absolute 0.51 0.30 - 0.90 x10(3)/mc L 07/24/2024 9:06 AM [facility] Eos % 1.7 % 07/24/2024 9:06 AM [facility] Eos Absolute 0.10 0.00 - 0.40 x10(3)/mc L 07/24/2024 9:06 AM [facility] Basophil % 0.7 % 07/24/2024 9:06 AM [facility] Baso Absolute 0.04 0.00 - 0.10 x10(3)/mc L 07/24/2024 9:06 AM [facility] Immature Gran % 0.3 % 9:06 AM [facility] Immature Gran Absolute <0.04 0.00 - 0.04 x10(3)/mc L 07/24/2024 9:06 AM EST [facility] Blood VENOUS BLOOD SPECIMEN / Unknown Venipuncture / Unknown 07/24/2024 8:31 AM EST 07/24/2024 8:42 AM EST Albania Dutton MD HEMATOLOGY ORDER [facility] [place] [phone] documented in this encounter Visit Diagnoses Diagnosis Thymic carcinoma Malignant neoplasm of thymus documented in this encounter Care Teams New Car Salesperson Relationship Specialty Start Date End Date America Caro MD [address] [place] [address] PCP - General Family Medicine 03/31/24 documented as of this encounter
--- OUTSIDE RECORDS SUMMARY | 2024-08-22 01:16 | XMS_ITS | Encounter Summary ---
Author Organization [facility] Address [facility] [place] [address] Care Team Providers Care Software Manager Name Role Phone America Caro MD Primary Care Provider [phone] Encounter Details Date Type Department Care Team (Late st Contact Info) Description 07/24/2024 Orders Only Hematology [place] [address] Albania Chahal MD [facility] DR HEMATOLOGY/[place] [address] Social History Tobacco Use Types Packs/Day Years Used Date Smoking Tobacco: Former Pipe Passive Smoke Exposure: Past Smokeless Tobacco: Never Comments:Smoke pipe for 10 y ears since 13 years old, Does still smoke pot but is slowing down. Passive Exposure Comments:Second hand smoke since 7003-2057 Alcohol Use Standard Drinks/Week Comments Yes 14 [...] AM EST Infusion Hematology Oncology at [address] [address] 08/26/2024 11:30 AM EST Telephone Hematology [place] [address] [facility] [place] [address] 09/11/2024 8:30 AM EST Laboratory Appointment Lab at [facility] Hematology Oncology [address] [place] [phone] 09/11/2024 9:30 AM EST Office Visit Hematology [place] [phone] Albania Chahal MD [facility] HEMATOLOGY/[place] [address] 09/11/2024 11:00 AM EST Appointment Hematology [place] [address] 10/02/2024 7:45 AM EDT Laboratory Appointment Lab at [facility] Hematology Oncology [address] [place] [phone] 10/02/2024 9:[address] [place] [address] Albania Chahal MD [facility] HEMATOLOGY/[place] [address] 10/02/2024 10:30 AM EDT Office Visit Hematology and Oncology at [place] [phone] Albania Chahal MD [facility] HEMATOLOGY/[place] [address] 10/02/2024 12:00 PM EDT Appointment Hematology [place] [address] documented as of this encounter Visit Diagnoses Not on filedocumented in this encounter Care Teams Software Manager Relationship Specialty Start Date End Date America Caro MD [address] [place] [address] PCP - General Family Medicine 03/31/24 documented as of this encounter
--- OUTSIDE RECORDS SUMMARY | 2024-08-22 01:16 | XMS_ITS | Encounter Summary ---
Author Organization [facility] [place] [address] Care Team Providers Care Lead Javascript Developer Name Role Phone America Caro MD Primary Care Provider [phone] Encounter Details Date Type Department Care Team (Late st Contact Info) Description 07/17/2024 Telephone Hematology [place] [address] Rose Roe, RN Social History Tobacco Use Types Packs/Day Years Used Date Smoking Tobacco: Former Pipe Passive Smoke Exposure: Past Smokeless Tobacco: Never Comments:Smoke pipe for 10 y ears since 13 years old, Does still smoke pot but is slowing down. Passive Exposure Comments:Second hand smoke since 1800-9219 Alcohol Use Standard Drinks/Week Comments Yes 14 (1 standard drink = 0.6 oz pure alcohol) hardly any for the last month B1300 Health Literacy Answer Date Recor ded How often do you need to hav e someone help you when you read instructions, pamphlets, or other written material from your doctor or pharmacy? Never 05/04/2024 [facility] Utilities Answer Date Recorded In the [...] any time in the past 12 m [facility], were you homeless or living in a correction (including now)? No 05/04/2024 Sex and Gender Information Value Date Recorded Sex Assigned at Not on file Gender Identity Not on file Sexual Orientation Not on file documented as of this encounter Miscellaneous Notes * Telephone Encounter - Rose Roe RN - 07/17/2024 8:41 AM EST Received message from social secretary: Henry called with a question of should he have a feeder driver home after his treatment on 07/18. He is having trouble securing transportation. He can be reached at [phone] Milian, pt will be receiving benadryl as a pre-med and should have a ride. T/C to patient: He is having difficulty finding a ride for tomorrow due to family illness and car issues. He understands needing a ride home after receiving benadryl and will work on driving himself to [facility] and having somebody come up after treatment to pick him up. Plan is that he will call scheduling if he needs to reschedule. Otherwise he has figured out his ride situation and will be here tomorrow AM as scheduled. documented in this encounter Plan of Treatment Upcoming Encounters Date Type Department Care Team (Renetta st Contact Info) Description 08/22/2024 9:00 AM EST Infusion Hematology Oncology at [address] [phone] 08/26/2024 11:30 AM EST Telephone [place]ematology [place] [phone] Aniya Saab, [facility] [place] [address] 09/11/2024 8:30 AM EST Laboratory Appointment Lab at [facility] Hematology Oncology [address] [place] [phone] 09/11/2024 9:30 AM EST Office Visit H[place]ology [place] [phone] Albania Chahal MD [facility] HEMATOLOGY/[place] [address] 09/11/2024 11:00 AM EST Appointment Hematology [place] [phone] 10/02/2024 7:45 AM EDT Laboratory Appointment Lab at [facility] Hematology Oncology [address] [place] [phone] 10/02/2024 9:[address] [place] [place] [phone] Albania Chahal MD [facility] HEMATOLOGY/[place] [address] 10/02/2024 10:30 AM EDT Office Visit Hematology [place] [phone] Albania Chahal MD [facility] HEMATOLOGY/[place] [address] 10/02/2024 12:00 PM EDT Appointment Hematology [place] [phone] documented as of this encounter Visit Diagnoses Not on filedocumented in this encounter Care Teams Lead Javascript Developer Relationship Specialty Start Date End Date America Caro MD [address] [place] [address] PCP - General Family Medicine 03/31/24 documented as of this encounter
--- OUTSIDE RECORDS SUMMARY | 2024-08-22 01:16 | XMS_ITS | Encounter Summary ---
Author Organization [facility] Address [facility] [place] [address] Care Team Providers Care Data Analytics Architect Name Role Phone America Caro MD Primary Care Provider [phone] Encounter Details Date Type Department Care Team (Latest Contact Info) Description 07/15/2024 Travel Social History Tobacco Use Types Packs/Day Years Used Date Smoking Tobacco: Former Pipe Passive Smoke Exposure: Past Smokeless Tobacco: Never Comments:Smoke pipe for 10 y ears since 13 years old, Does still smoke pot but is slowing down. Passive Exposure Comments:Second hand smoke since 4170-1414 Alcohol Use Standard Drinks/Week Comments Yes 14 (1 standard drink = 0.6 oz pure alcohol) hardly any for the last month B1300 Health Literacy Answer Date Recor ded How often do you need to hav e someone help you when you read instructions, pamphlets, or other written material from your doctor or pharmacy? Never 05/04/2024 [facility] Utilities Answer Date Recorded In the past 12 months has [employer], gas, oil, or water [employer] threatened to shut off services in your [...] time in the past 12 m [facility], were you homeless or living [...] 9:00 AM EST Infusion Hematology Oncology at [address] [address] 08/26/2024 11:30 AM EST Telephone Hematology [place] [phone] [facility] [place] [address] 09/11/2024 8:30 AM EST Laboratory Appointment Lab at [facility] Hematology Oncology [address] [place] [phone] 09/11/2024 9:30 AM EST Office Visit Hematology [place] [phone] Albania Chahal MD [facility] [place]EMATOLOGY/[place] [address] 09/11/2024 11:00 AM EST Appointment Hematology [place] [phone] 10/02/2024 7:45 AM EDT Laboratory Appointment Lab at [facility] Hematology Oncology [address] [place] [phone] 10/02/2024 9:[address] [place] [phone] Albania Chahal MD [facility] HEMATOLOGY[place] [address] 10/02/2024 10:30 AM EDT Office Visit Hematology [place] [phone] Albania Chahal MD [facility] HEMATOLOGY[place] [address] 10/02/2024 12:00 PM EDT Appointment Hematology and Oncology at [place] [phone] documented as of this encounter Visit Diagnoses Not on filedocumented in this encounter Care Teams Data Analytics Architect Relationship Specialty Start Date End Date America Caro MD [address] [place] [address] PCP - General Family Medicine 03/31/24 documented as of this encounter
--- OUTSIDE RECORDS SUMMARY | 2024-08-22 01:16 | XMS_ITS | Encounter Summary ---
Author Organization [facility] [place] [address] Care Team Providers Care Display Screen Fabricator Name Role Phone America Caro MD Primary Care Provider [phone] Encounter Details Date Type Department Care Team (Late st Contact Info) Description 07/01/2024 Telephone Hematology [place] [phone] Rose Roe, RN Social History Tobacco Use Types Packs/Day Years Used Date Smoking Tobacco: Former Pipe Passive Smoke Exposure: Past Smokeless Tobacco: Never Comments:Smoke pipe for 10 y ears since 13 years old, Does still smoke pot but is slowing down. Passive Exposure Comments:Second hand smoke since 4033-5057 Alcohol Use Standard Drinks/Week Comments Yes 14 (1 standard drink = 0.6 oz pure alcohol) hardly any for the last month B1300 Health Literacy Answer Date Recor ded How often do you need to hav e someone help you when you read instructions, pamphlets, or other written material from your doctor or pharmacy? Never 05/04/2024 [facility] Utilities Answer Date Recorded In the past [...] time in the past [address] [facility], were you homeless or living in a fci (including now)? No 05/04/2024 Sex and Gender Information Value Date Recorded Sex Assigned at Not on file Gender Identity Not on file Sexual Orientation Not on file documented as of this encounter Miscellaneous Notes * Telephone Encounter - Rose Roe RN - 07/01/2024 9:52 AM EST Received message from clinical secretary: Henry called and reports last night he had another skin reaction and now has a rash on his torso and upper legs. He applied cortisone and says it has helped. 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 Received C1D1 carbo/taxol on 06/26. Also denosumab SC Ramucirumab held due to previous reaction and requiring pre-meds. T/C to patient: He reports a rash that started last night and involves bilateral torso, abd, upper arms and thighs.Very similar to previous rash. Itchy and red but not blistered, peeling, burning. Using OTC cortisone cream with some effect. Did use a prescription cream when this occurred before.Plans on taking diphenhydramine at bedtime tonight Also reports some N/T and joint pain in hands/wrists. Plans on taking tylenol for comfort. Mild nausea x 2-3 days following chemo but took antiemetics with good effect. Denies fevers, chills, elimination issues, N/V. Plan: Will make provider aware and contact pt with recs. Continue with current comfort measures. Addendum: Call to pt with Dr Milian's recs, script for triamcinolone cream sent to pts rx. To be used bid. He will pick this up today and is going to take benadryl PO tonight to help with pruritus. He agrees to call us in 1-2 days if rash worsens or does not respond and Dr Milian will start low dose of steroid.He also knows to call sooner if blisters, pain, peeling occur. Scheduling to make derm appointment. Pt aware that he may hear from either derm or our scheduling team. He agrees with above plan. documented in this encounter Plan of Treatment Upcoming Encounters Date Type Department Care Team (Late st Contact Info) Description 08/22/2024 9:00 AM EST Infusion Hematology Oncology at [address] [address] 08/26/2024 11:30 AM EST Telephone Hematology [place] [phone] [facility] [place] [address] 09/11/2024 8:30 AM EST Laboratory Appointment Lab at [facility] Hematology Oncology [address] [place] [phone] 09/11/2024 9:30 AM EST Office Visit Hematology [place] [phone] Albania Chahal MD [facility] [place]OLOG[place] [address] 09/11/2024 11:00 AM EST Appointment Hematology [place] [phone] 10/02/2024 7:45 AM EDT Laboratory Appointment Lab at [facility] Hematology Oncology [address] [place] [phone] 10/02/2024 9:[address] [place] [place] [phone] Albania Chahal MD [facility] [place]ATOLOG[place] [address] 10/02/2024 10:30 AM EDT Office Visit Hematology [place] [phone] Albania Chahal MD [facility] [place] [address] 10/02/2024 12:00 PM EDT Appointment Hematology [place] [address] documented as of this encounter Visit Diagnoses Not on filedocumented in this encounter Care Teams Display Screen Fabricator Relationship Specialty Start Date End Date America Caro MD [address] [place] [address] PCP - General Family Medicine 03/31/24 documented as of this encounter
--- OUTSIDE RECORDS SUMMARY | 2024-08-22 01:16 | XMS_ITS | Encounter Summary ---
Author Organization [facility] [place] [address] Care Team Providers Care Imcu Nurse Name Role Phone America Caro MD Primary Care Provider [phone] Reason for Visit * Treatment/Therapy Plan Authorization (Routine) - Authorized Specialty Diagnoses / Procedures Referred By Contac t Referred To Contact Hematology and Oncology Diagnoses Thymic carcinoma Medication management Procedures INFUSION Albania Chahal MD [facility] [address] HEMATOLOGY/[place] [address] [facility] [address] [place] [address] Referral ID Status Reason Start Date Expiration Date V isits Requested Visits Authorized [id number] Authorized 05/30/2024 05/30/2025 1 102 Encounter Details Date Type Department Care Team (Latest Contact Info) Description 07/24/2024 7:43 AM EST - 07/24/2024 11:59 PM EST Hospital Encounter Hematology [place] [phone] Thymic carcinoma Discharge Disposition: Home Social History Tobacco Use Types Packs/Day Years Used Date Smoking Tobacco: Former Pipe Passive Smoke Exposure: Past Smokeless Tobacco: Never Comments:Smoke pipe for 10 y ears since 13 years old, Does still smoke pot but is slowing down. Passive Exposure Comments:Second hand smoke since [id number] Alcohol Use Standard Drinks/Week Comments Yes 14 (1 standard drink = 0.6 oz pure alcohol) hardly any for the last month B1300 Health Literacy Answer Date Recor ded How often do you need to hav e someone help you when you read instructions, pamphlets, or other written material from your doctor or pharmacy? Never 05/04/2024 [facility] Utilities Answer Date Recorded In [...] time in the past 12 m [facility], were you homeless or living [...] Mass Index 25.17 07/24/2024 8:14 AM EST documented in this encounter Medications at Time of Discharge Medication Sig Dispensed Refills Start Date End Date senna (Senokot) 8.6 mg tablet Take 2 tablets by mouth daily. 60 tablet 11 07/24/2024 polyethylene glycoL (Miralax) 17 gram oral powder packet Take 17 g by mouth daily. 14 each 07/24/2024 prochlorperazine (Compazine) 10 mg tablet Take 1 tablet by mouth every 6 hours as needed for Nausea. 15 tablet 07/18/2024 hydrOXYzine (Atarax) 10 mg tablet Take orally 10 mg at night, can take up to 2 pills (20 mg) 30 tablet 5 07/04/2024 triamcinolone (Kenalog) 0.1 % Cream Apply thin amount topically twice daily to trunk and extremities x 14 days, take week off, repeat if needed for rash 453.6 g 2 07/04/2024 furosemide (Lasix) 20 mg tablet Take 20 mg by mouth daily. 04/17/2024 cholecalciferol, Vitamin D3, 25 mcg (1,000 unit) Capsule take 1 capsule po qd. 03/28/2018 colchicine (Colcrys) 0.6 mg tablet Take 1 tablet by mouth Daily at Noon. 04/10/2024 acetaminophen (Tylenol) 325 mg tablet Take 650 mg by mouth every 4 hours as needed for Pain. documented as of this encounter Progress Notes * Niles Hussein RN - 07/24/2024 3:08 PM EST Patient Name: Henry Javier Patient Age: 68 y.o. Birthdate: 1955 Admit date: 07/24/2024 Attending Physician: Aisha att. providers found Henry Javier, 68 y.o. 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 PROTOCOL: n/a CYCLE: 3 DAY: 1 Patient is on Cycle 3, however, his Paclitaxel was withheld twice due to hypersensitivity reactionswith [place]ucir[place]ab. Today was patient's second dose of Paclitaxel. 3 step titration utilized for Paclitaxel today. S: Patient agreeable to treatment today with no present questions or concerns. Reviewed plan of care for infusion visit, patient verbalized understanding of plan as outlined. Patient encouraged to utilize call lawler for any needs, questions, or concerns as they arise during their infusion stay. O: Chemotherapy orders independently verified for correct drug name, route and dosage per patient'sheight, weight and BSA by Niles Hussein RN, RN and a [facility] pharmacist. Chemotherapy administered per protocol. REACTIONS (DESCRIPTION, TIME, INTERVENTION AND EFFECTIVENESS) none A: Patient received treatment as ordered, reports feeling well enough to return home. Henry Javier confirms that all questions and concerns have been addressed prior to departure. P: Return to for care as scheduled. documented in this encounter Plan of Treatment Upcoming Encounters Date Type Department Care Team (Late st Contact Info) Description 08/22/2024 9:00 AM EST Infusion Hematology Oncology at [address] [phone] 08/26/2024 11:30 AM EST Telephone Hematology [place] [address] [facility] [place] [address] 09/11/2024 8:30 AM EST Laboratory Appointment Lab at [facility] Hematology Oncology [address] [place] [phone] 09/11/2024 9:30 AM EST Office Visit Hematology [place] [phone] Albania Chahal MD [facility] [place]EMATOLOGY/[place] [address] 09/11/2024 11:00 AM EST Appointment Hematology [place] [address] 10/02/2024 7:45 AM EDT Laboratory Appointment Lab at [facility] Hematology Oncology [address] [place] [phone] 10/02/2024 9:[address] [place] [phone] Albania Chahal MD [facility] [place]EMATOLOGY/[place] [address] 10/02/2024 10:30 AM EDT Office Visit Hematology [place] [phone] Albania Chahal MD [facility] [place]EMATOLOGY/[place] [address] 10/02/2024 12:00 PM EDT Appointment Hematology [place] [address] Scheduled Orders Name Type Priority Associated Diagnoses Orde r Schedule CBC (with Diff) Lab STAT Thymic carcinoma Expected: 07/21/2024 (Approximate), Expires: 08/20/2024 Comprehensive metabolic panel Non-fasting Lab STAT Thymic carcinoma Expected: 07/21/2024 (Approximate), Expires: 08/20/2024 Urinalysis Dipstick Lab STAT Thymic carcinoma Expected: 07/21/2024 (Approximate), Expires: 08/20/2024 Urinalysis Dipstick Lab STAT Thymic carcinoma 1 Occurrences starting 07/24/2024 until 07/24/2024 documented as of this encounter Procedures Procedure Name Priority Date/Time Associated Diagnosis Comments CBC (WITH DIFF) Routine 07/24/2024 8:31 AM EST Thymic carcinoma MAGNESIUM STAT 07/24/2024 8:31 AM EST Thymic carcinoma COMPREHENSIVE METABOLIC PANEL Routine 07/24/2024 8:31 AM EST Thymic carcinoma documented in this encounter Results * (ABNORMAL) Comprehensive metabolic panel Non-fasting (07/24/2024 8:31 AM EST) Glucose 78 65 - 199 mg/dL 07/24/2024 9:20 AM [facility] Comment:Glucose Concentratio n >=200 mg/dL plus symptoms is consistent with Diabetes Mellitus. Blood Urea Nitrogen 16 10 - 20 mg/dL 07/24/2024 9:20 AM [facility] Creatinine 0.89 0.80 - 1.50 mg/dL 07/24/2024 9:20 AM [facility] Sodium 137 135 - 145 mMol/L 07/24/2024 9:20 AM [facility] Potassium 4.3 3.5 - 5.0 mMol/L 07/24/2024 9:20 AM [facility] Chloride 101 98 - 107 mMol/L 07/24/2024 9:20 AM [facility] Carbon Dioxide 25 22 - 31 mMol/L 07/24/2024 9:20 AM [facility] Anion Gap 11 5 - 15 mMol/L 07/24/2024 9:20 AM [facility] Calcium 9.4 8.5 - 10.5 mg/dL 07/24/2024 9:20 AM [facility] Protein, Total 7.6 6.1 - 8.0 g/dL 07/24/2024 9:20 AM [facility] Albumin 4.2 3.2 - 5.2 g/dL 07/24/2024 9:20 AM [facility] Aspartate Aminotransferase 28 <=39 unit/L 07/24/2024 9:20 AM [facility] Alanine Aminotransferase 22 0 - 55 unit/L 07/24/2024 9:20 AM [facility] Alkaline Phosphatase 134(H) 40 - 130 unit/L 07/24/2024 9:20 AM [facility] Bilirubin, Total 0.4 <=1.3 mg/dL 07/24/2024 9:20 AM [facility] Est Glomerular Filtration Rate - Male 92 mL/min/1. 73 m?? 07/24/2024 9:20 AM [facility] [...] Foundation Fasting Status No 07/24/2024 9:20 AM [facility] Blood VENOUS BLOOD SPECIMEN / Unknown Venipuncture / Unknown 07/24/2024 8:31 AM EST 07/24/2024 8:42 AM EST Albania Dutton MD CHEMISTRY ORDERA BLES [facility] [place] [address] * (ABNORMAL) CBC (with Diff) (07/24/2024 8:31 AM EST) White Blood Cell 5.92 4.00 - 9.50 x10(3)/mc L 07/24/2024 9:06 AM [facility] Red Blood Cell 5.13 4.58 - 5.54 x10(6)/mc L 07/24/2024 9:06 AM [facility] Hemoglobin 14.4 13.7 - 16.5 g/dL 07/24/2024 9:06 AM [facility] Hematocrit 44.7 40.5 - 48.5 % 07/24/2024 9:06 AM [facility] Mean Cell Volume 87.1 82.9 - 93.1 fL 07/24/2024 9:06 AM [facility] Mean Cell Hemoglobin 28.1 27.5 - 32.1 pg 07/24/2024 9:06 AM [facility] Mean Cell Hemoglobin Concentration 32.2 32.0 - 35.7 g/dL 07/24/2024 9:06 AM [facility] Platelet 239 145 - 357 x10(3)/mc L 07/24/2024 9:06 AM [facility] Mean Platelet Volume 10.5 7.6 - 12.9 fL 07/24/2024 9:06 AM [facility] RDW Standard Deviation 73.5(H) 36.0 - 45.0 fL 07/24/2024 9:06 AM [facility] RDW coefficient of variation 23.7(H) 11.4 - 13.8 % 07/24/2024 9:06 AM [facility] NRBC% auto 0.0 % 07/24/2024 9:06 AM [facility] NRBC Absolute <0.01 <0.01 x10(3)/mc L 07/24/2024 9:06 AM [facility] Neutrophil % 64.5 % 07/24/2024 9:06 AM [facility] Neutrophil Absolute (ANC) - Automated 3.82 1.70 - 6.10 x10(3)/mc L 07/24/2024 9:06 AM [facility] Lymph % 24.2 % 07/24/2024 9:06 AM [facility] Lymph Absolute 1.43 0.90 - 3.20 x10(3)/mc L 07/24/2024 9:06 AM [facility] Monocyte % 8.6 % 07/24/2024 9:06 AM [facility] Monocyte Absolute 0.51 0.30 - 0.90 x10(3)/mc L 07/24/2024 9:06 AM [facility] Eos % 1.7 % 07/24/2024 9:06 AM [facility] Eos Absolute 0.10 0.00 - 0.40 x10(3)/mc L 07/24/2024 9:06 AM [facility] Basophil % 0.7 % 07/24/2024 9:06 AM [facility] Baso Absolute 0.04 0.00 - 0.10 x10(3)/mc L 07/24/2024 9:06 AM [facility] Immature Gran % 0.3 % 9:06 AM [facility] Immature Gran Absolute <0.04 0.00 - 0.04 x10(3)/mc L 07/24/2024 9:06 AM [facility] Blood VENOUS BLOOD SPECIMEN / Unknown Venipuncture / Unknown 07/24/2024 8:31 AM EST 07/24/2024 8:42 AM EST Albania Dutton MD HEMATOLOGY ORDER HERBERTH Performing Organization Address City/[facility]/[place] [address] * Magnesium (07/24/2024 8:31 AM EST) Magnesium 1.04 0.69 - 1.07 mMol/L 07/24/2024 9:20 AM [facility] Blood VENOUS BLOOD SPECIMEN / Unknown Venipuncture / Unknown 07/24/2024 8:31 AM EST 07/24/2024 8:42 AM EST Albania Dutton MD CHEMISTRY ORDERA BLES Performing Organization Address City/[facility]/[place] [address] documented in this encounter Visit Diagnoses Diagnosis Thymic carcinoma Malignant neoplasm of thymus documented in this encounter Administered Medications Inactive Administered Medications - up to 3 most recent administrations Medication Order MAR Action Action Date Dose Rate Site aprepitant (Cinvanti) (7.2 mg/mL) injection emulsion 130 mg 130 mg, Intravenous, Administer over 2 Minutes, ONCE, 1 dose, On Cherelle 07/24/24 at 0945, Alternative administration of IV push over 2 minutes is a recommendation from the aerial crop duster. Administer prior to chemotherapy., Routine Given 07/24/2024 9:45 AM EST 130 mg CARBOplatin (Paraplatin) 497 mg in dextrose 5% 299.7 mL infusion 497 mg (Target AUC = 5), Intravenous, ONCE, 1 dose, On Cherelle 07/24/24 at 1415, Administer over 30 Minutes, For target AUC = 5, the maximum dose is 750 mg. Warning Vesicant/Irritant Medication New Bag 07/24/2024 2:20 PM EST 497 mg 599.4 mL/hr dexAMETHasone (Decadron) tablet 10 mg 10 mg, Oral, ONCE, 1 dose, On Cherelle 07/24/24 at 0945, Administer 30 minutes prior to chemotherapy., Routine Given 07/24/2024 9:42 AM EST 10 mg diphenhydrAMINE (Benadryl) capsule 50 mg 50 mg, Oral, ONCE, 1 dose, On Cherelle 07/24/24 at 0945, Administer 30 minutes prior to chemotherapy., Routine Given 07/24/2024 9:42 AM EST 50 mg famotidine (Pepcid) (10 mg/mL) injection 20 mg 20 mg, Intravenous, ONCE, 1 dose, On Cherelle 07/24/24 at 1015, Administer 30 minutes prior to chemotherapy. Given 07/24/2024 9:45 AM EST 20 mg PACLitaxeL (Taxol) 350 mg in sodium chloride 0.9% Non-PVC 558.33 mL infusion 350 mg (200 mg/m2/dose ? 1.75 m2 Treatment Plan BSA from Recorded weight), Intravenous, ONCE, 1 dose, On Cherelle 07/24/24 at 1115, Administer over 3 Hours, Warning Vesicant/Irritant Medication 3 Step Titration for Infusions 1 and 2. Regular (Not Titrated) Rate to start at infusion 3 if no HSR. Priming Step: Always start at rate of 60 mL/hr for 1 minute - RN to remain with patient. Step 1: Start infusion at a rate of 1.8 mL/hr for 15 minutes. (1% of final rate) Step 2: Increase rate to 18.5 mL/hr for 15 minutes. (10% of final rate) Step 3: Increase to regular infusion rate 184.9 mL/hr for remainder of infusion. (100% of final rate) Warning Vesicant/Irritant Medication , Should this infusion continue 3 Step Titration (Initial Dosing) or Standard Infusion? Continue Initial 3 Step Titration New Bag 07/24/2024 10:25 AM EST 350 mg 1.8 mL/hr palonosetron (Aloxi) (0.05 mg/mL) injection 0.25 mg 0.25 mg, Intravenous, ONCE, 1 dose, On Cherelle 07/24/24 at 0945, Administer over 30 seconds. Administer prior to chemotherapy., Routine Given 07/24/2024 9:45 AM EST 0.25 mg sodium chloride 0.9% infusion 1,000 mL, Intravenous, ONCE, 1 dose, On Cherelle 07/24/24 at 0945 New Bag 07/24/2024 9:46 AM EST 1,000 mLs 200 mL/hr documented in this encounter Care Teams Imcu Nurse Relationship Specialty Start Date End Date America Caro MD [address] [place] [address] PCP - General Family Medicine 03/31/24 documented as of this encounter
--- OUTSIDE RECORDS SUMMARY | 2024-08-22 01:16 | XMS_ITS | Encounter Summary ---
Author Organization Formerly [facility] Address [facility] [place] [address] Care Team Providers Care Embroidery Worker Name Role Phone America Caro MD Primary Care Provider [phone] Encounter Details Date Type Department Care Team (Latest Contact Info) Description 08/21/2024 Travel Social History Tobacco Use Types Packs/Day Years Used Date Smoking Tobacco: Former Pipe Passive Smoke Exposure: Past Smokeless Tobacco: Never Comments:Smoke pipe for 10 y ears since 13 years old, Does still smoke pot but is slowing down. Passive Exposure Comments:Second hand smoke since [id number] Alcohol Use Standard Drinks/Week Comments Yes 14 (1 standard drink = 0.6 oz pure alcohol) hardly any for the last month B1300 Health Literacy Answer Date Recor ded How often do you need to hav e someone help you when you read instructions, pamphlets, or other written material from your doctor or pharmacy? Never 05/04/2024 [facility] Utilities Answer Date Recorded In the past 12 months has [employer], gas, oil, or water [employer] threatened to shut off services in your [...] time in the past 12 m [facility], were you homeless or living in [...] AM EST Infusion Hematology Oncology at [address] [phone] 08/26/2024 11:30 AM EST Telephone [place]emat[place] [phone] [facility] [place] [address] 09/11/2024 8:30 AM EST Laboratory Appointment Lab at [facility] Hematology Oncology [address] [place] [phone] 09/11/2024 9:30 AM EST Office Visit [place]ology [place] [phone] Albania Chahal MD [facility] HEMATOLOGY/[place] [address] 09/11/2024 11:00 AM EST Appointment Hematology [place] [phone] 10/02/2024 7:45 AM EDT Laboratory Appointment Lab at [facility] Hematology Oncology [address] [place] [phone] 10/02/2024 9:[address] [place] [place] [phone] Albania Chahal MD [facility] HEMATOLOGY/[place] [address] 10/02/2024 10:30 AM EDT Office Visit [place]ematology [place] [phone] Albania Chahal MD [facility] HEMATOLOGY[place] [address] 10/02/2024 12:00 PM EDT Appointment Hematology and Oncology at [place] [phone] documented as of this encounter Visit Diagnoses Not on filedocumented in this encounter Care Teams Embroidery Worker Relationship Specialty Start Date End Date America Caro MD [address] [place] [address] PCP - General Family Medicine 03/31/24 documented as of this encounter
--- OUTSIDE RECORDS SUMMARY | 2024-08-22 01:16 | XMS_ITS | Encounter Summary ---
Author Organization [facility] [place] [address] Care Team Providers Care Construction Management Instructor Name Role Phone America Caro MD Primary Care Provider [phone] Reason for Visit * Treatment/Therapy Plan Authorization (Routine) - Authorized Specialty Diagnoses / Procedures Referred By Contac t Referred To Contact Hematology and Oncology Diagnoses Thymic carcinoma Medication management Procedures INFUSION Albania Chahal MD [facility] DR HEMATOLOGY/[place] [address] [facility] [address] [place] [address] Referral ID Status Reason Start Date Expiration Date V isits Requested Visits Authorized [id number] Authorized 05/30/2024 05/30/2025 1 102 Encounter Details Date Type Department Care Team (Latest Contact Info) Description 07/18/2024 7:33 AM EST - 07/18/2024 11:59 PM EST Hospital Encounter Hematology [place] [id number] Thymic carcinoma; Medication management Discharge Disposition: Home Social History Tobacco Use Types Packs/Day Years Used Date Smoking Tobacco: Former Pipe Passive Smoke Exposure: Past Smokeless Tobacco: Never Comments:Smoke pipe for 10 y ears since 13 years old, Does still smoke pot but is slowing down. Passive Exposure Comments:Second hand smoke since 9980-1774 Alcohol Use Standard Drinks/Week Comments Yes 14 (1 standard drink = 0.6 oz pure alcohol) hardly any for the last month B1300 Health Literacy Answer Date Recor ded How often do you need to hav e someone help you when you read instructions, pamphlets, or other written material from your doctor or pharmacy? Never 05/04/2024 [facility] Utilities Answer Date Recorded [...] Sign Reading Time Taken Comments Blood Pressure 115/82 07/18/2024 2:44 PM EST Pulse 58 07/18/2024 2:44 PM EST Temperature 36 ??C (96.8 ??F) 07/18/2024 2:44 PM EST Respiratory Rate 16 07/18/2024 2:44 PM EST Oxygen Saturation 99% 07/18/2024 2:44 PM EST Inhaled Oxygen Concentration - - Weight - - Height - - Body Mass Index - - documented in this encounter Medications at Time [...] as of this encounter Progress Notes * Leigh Addison RN - 07/18/2024 11:36 AM EST Patient Name: Henry Javier Patient Age: 68 y.o. Birthdate: 1955 Admit date: 07/18/2024 Attending Physician: No att. providers found Seat time: 1051 Leave time: 1500 Henry Javier, 68 y.o. male with diagnosis of 1. Thymic carcinoma 2. Medication management is here for chemotherapy infusion regimen of Ramucirumab, Taxol, and Carboplatin. Pt also received IV fluids. Pt also received subQ injection of Xgeva in right arm, tolerated well. Pt did not receive Taxol or Carboplatin do to reaction to Ramucirumab and verbal order from MD. CYCLE: 2 DAY: 1 S: Patient agreeable to treatment today with no present questions or concerns. Reviewed plan of care for infusion visit, patient verbalized understanding of plan as outlined. Patient encouraged to utilize call lawler for any needs, questions, or concerns as they arise during their infusion stay. O: Chemotherapy orders independently verified for correct drug name, route and dosage per patient'sheight, weight and BSA by Leigh Addison RN, RN and a [facility] pharmacist. Chemotherapy administered per protocol. REACTIONS (DESCRIPTION, TIME, INTERVENTION AND EFFECTIVENESS) Ramucirumab Pt had a reaction of itchiness on his arms and a scratchy throat after 57.6mLs, infusion stopped [id number] fluids started. 25mg of Benadryl, 20mg of Pepcid and 4mg of Dexamethasone administered. Maicol Dutton MD paged, at bedside within 3 minutes. Verbal orders from MD to discontinue medication. [id number] 20mg of dexamethasone administered due to patients symptoms not resolving. At 1340 a code white was called due to pt symptoms not resolving and spreading to both ankles and bilateral flanks withraised hives, pt also reported he felt his voice was becoming hoarse but denied SOB or difficulty swallowing, pt was elevated then and decided to continue observation in , but if symptoms worsened an epi pen would be administered and pt would go to ED. Blood pressures were elevated during symptoms and monitored every 10-15 minutes until discharge. BP's trended back to baseline as symptoms resolved, see flowsheets for vital signs. This lasted for about an hour before patient felt any improvement. Symptoms resolved around 1420, pt monitored until 1500. A: Patient received treatment as ordered, reports feeling well enough to return home. Henry Javier confirms that all questions and concerns have been addressed prior to departure. P: Return to for care as scheduled. documented in this encounter Plan of Treatment Upcoming Encounters Date Type Department Care Team (Late st Contact Info) Description 08/22/2024 9:00 AM EST Infusion Hematology Oncology at [address] [phone] 08/26/2024 11:30 AM EST Telephone Hematology [place] [address] [facility] [place] [address] 09/11/2024 8:30 AM EST Laboratory Appointment Lab at [facility] Hematology Oncology [address] [place] [phone] 09/11/2024 9:30 AM EST Office Visit Hematology [place] [address] Albania Chahal MD [facility] HEMATOLOGY/[place] [address] 09/11/2024 11:00 AM EST Appointment Hematology [place] [address] 10/02/2024 7:45 AM EDT Laboratory Appointment Lab at [facility] Hematology Oncology [address] [place] [phone] 10/02/2024 9:[address] [place] [address] Albania Chahal MD [facility] HEMATOLOGY/[place] [address] 10/02/2024 10:30 AM EDT Office Visit Hematology [place] [address] Albania Chahal MD [facility] HEMATOLOGY/[place] [address] 10/02/2024 12:00 PM EDT Appointment Hematology [place] [address] documented as of this encounter Results * Urinalysis Dipstick (07/18/2024 7:48 AM EST) Glucose, Urine Dipstick Negative Negative 07/18/2024 8:00 AM EST [facility] Protein, Urine Dipstick Negative Negative 07/18/2024 8:00 AM EST [facility] Bilirubin, Urine Dipstick Negative Negative [...] 8:00 AM [facility] Specific Machias Urine Automated 1.020 1.005 - 1.030 07/18/2024 [...] AM EST Albania Dutton MD URINE ORDERABLES [facility] [place] [address] * Magnesium (07/18/2024 7:45 AM EST) Magnesium 0.97 0.69 - 1.07 mMol/L 07/18/2024 8:38 AM EST [facility] Blood VENOUS BLOOD SPECIMEN / Unknown Venipuncture / Unknown 07/18/2024 7:45 AM EST 07/18/2024 7:54 AM EST Albania Dutton MD CHEMISTRY ORDERA BLES Performing Organization Address [facility]/ZIP Co de Phone Number [facility] [place] [address] * Lactate Dehydrogenase (07/18/2024 7:45 AM EST) Lactate Dehydrogenase 176 110 - 220 unit/L 07/18/2024 8:38 AM [facility] Blood VENOUS BLOOD SPECIMEN / Unknown Venipuncture / Unknown 07/18/2024 7:45 AM EST 07/18/2024 7:54 AM EST Albania Dutton MD CHEMISTRY ORDERA BLES Performing Organization Address [facility] Co de Phone Number [facility] [place] [address] * (ABNORMAL) Comprehensive metabolic panel Non-fasting (07/18/2024 7:45 AM EST) Glucose 95 65 - 199 mg/dL 07/18/2024 8:38 AM [facility] Comment:Glucose Concentratio n >=200 mg/dL plus symptoms is consistent with Diabetes Mellitus. Blood Urea Nitrogen 17 10 - 20 mg/dL 07/18/2024 8:38 AM [facility] Creatinine 1.00 0.80 - 1.50 mg/dL 07/18/2024 8:38 AM [facility] Sodium 139 135 - 145 mMol/L 07/18/2024 8:38 AM [facility] Potassium 4.5 3.5 - 5.0 mMol/L 07/18/2024 8:38 AM [facility] Chloride 104 98 - 107 mMol/L 07/18/2024 8:38 AM [facility] Carbon Dioxide 27 22 - 31 mMol/L 07/18/2024 8:38 AM [facility] Anion Gap 8 5 - 15 mMol/L 07/18/2024 8:38 AM [facility] Calcium 9.6 8.5 - 10.5 mg/dL 07/18/2024 8:38 AM [facility] Protein, Total 7.5 6.1 - 8.0 g/dL 07/18/2024 8:38 AM [facility] Albumin 4.3 3.2 - 5.2 g/dL 07/18/2024 8:38 AM [facility] Aspartate Aminotransferase 25 <=39 unit/L 07/18/2024 8:38 AM [facility] Alanine Aminotransferase 26 0 - 55 unit/L 07/18/2024 8:38 AM [facility] Alkaline Phosphatase 133(H) 40 - 130 unit/L 07/18/2024 8:38 AM [facility] Bilirubin, Total 0.3 <=1.3 mg/dL 07/18/2024 8:38 AM [facility] Est Glomerular Filtration Rate - Male 81 mL/min/1. 73 m?? 07/18/2024 8:38 AM [facility] Comment: This [...] Foundation Fasting Status No 07/18/2024 8:38 AM [facility] Blood VENOUS BLOOD SPECIMEN / Unknown Venipuncture / Unknown 07/18/2024 7:45 AM EST 07/18/2024 7:54 AM EST Narrative Authorizing Provider Result Levi Dutton MD CHEMISTRY ORDERA BLES [facility] [place] [address] * (ABNORMAL) CBC (with Diff) (07/18/2024 7:45 AM EST) White Blood Cell 5.43 4.00 - 9.50 x10(3)/mc L 07/18/2024 8:11 AM [facility] Red Blood Cell 5.09 4.58 - 5.54 x10(6)/mc L 07/18/2024 8:11 AM [facility] Hemoglobin 13.8 13.7 - 16.5 g/dL 07/18/2024 8:11 AM [facility] Hematocrit 44.0 40.5 - 48.5 % 07/18/2024 8:11 AM [facility] Mean Cell Volume 86.4 82.9 - 93.1 fL 07/18/2024 8:11 AM [facility] Mean Cell Hemoglobin 27.1(L) 27.5 - 32.1 pg 07/18/2024 8:11 AM [facility] Mean Cell Hemoglobin Concentration 31.4(L) 32.0 - 35.7 g/dL 07/18/2024 8:11 AM [facility] Platelet 304 145 - 357 x10(3)/mc L 07/18/2024 8:11 AM [facility] Mean Platelet Volume 8.6 7.6 - 12.9 fL 07/18/2024 8:11 AM [facility] RDW Standard Deviation 73.9(H) 36.0 - 45.0 fL 07/18/2024 8:11 AM [facility] RDW coefficient of variation 23.8(H) 11.4 - 13.8 % 07/18/2024 8:11 AM [facility] NRBC% auto 0.0 % 07/18/2024 8:11 AM [facility] NRBC Absolute <0.01 <0.01 x10(3)/mc L 07/18/2024 8:11 AM [facility] Neutrophil % 61.9 % 07/18/2024 8:11 AM [facility] Neutrophil Absolute (ANC) - Automated 3.36 1.70 - 6.10 x10(3)/mc L 07/18/2024 8:11 AM [facility] Lymph % 24.3 % 07/18/2024 8:11 AM [facility] Lymph Absolute 1.32 0.90 - 3.20 x10(3)/mc L 07/18/2024 8:11 AM [facility] Monocyte % 10.1 % 07/18/2024 8:11 AM [facility] Monocyte Absolute 0.55 0.30 - 0.90 x10(3)/mc L 07/18/2024 8:11 AM [facility] Eos % 1.5 % 07/18/2024 8:11 AM [facility] Eos Absolute 0.08 0.00 - 0.40 x10(3)/mc L 07/18/2024 8:11 AM [facility] Basophil % 1.5 % 07/18/2024 8:11 AM [facility] Baso Absolute 0.08 0.00 - 0.10 x10(3)/mc L 07/18/2024 8:11 AM [facility] Immature Gran % 0.7 % 8:11 AM [facility] Immature Gran Absolute 0.04 0.00 - 0.04 x10(3)/mc L 07/18/2024 8:11 AM [facility] Blood VENOUS BLOOD SPECIMEN / Unknown Venipuncture / Unknown 07/18/2024 7:45 AM EST 07/18/2024 7:54 AM EST [place] L Maicol Dutton MD [place] [address] documented in this encounter Visit Diagnoses Diagnosis [...] over 2 Minutes, ONCE, 1 dose, On Sun07/18/24 at 1015, Alternative administration of IV push over 2 minutes is a recommendation from the toll patrolman. Administer prior to chemotherapy., Routine Given 07/18/2024 11:25 AM EST 130 mg denosumab (Xgeva) (120 mg/1.7 mL) subcutaneous injection 120 mg 120 mg, Subcutaneous, ONCE, 1 dose, On Sun07/18/24 at 1015, - Bring to room temperature 15-30 minutes before administration. - Call provider for corrected calcium less than 8.5 mg/dL or CrCl less than 30 mL/min., This agent is restricted to outpatient use. Is this drug being given as an outpatient? Yes Given 07/18/2024 11:55 AM EST 120 mg Right Arm dexAMETHasone (Decadron) 20 mg in sodium chloride 0.9% 50 mL infusion 20 mg, Intravenous, ONCE, 1 dose, On Sun07/18/24 at 1045, Administer over 10 Minutes, Administer 60 minutes prior to chemotherapy. New Bag 07/18/2024 11:15 AM EST 20 mg 300 mL/hr dexAMETHasone (Decadron) injection 4 mg 4 mg, Intravenous, ONCE, 1 dose, On Sun07/18/24 at 1315, IV Push over 30 seconds Given 07/18/2024 12:52 PM EST 4 mg dexAMETHasone (PF) (Decadron) (10 mg/mL) injection 10 mg 10 mg, Intravenous, ONCE, 1 dose, On Sun07/18/24 at 1345 Given 07/18/2024 1:22 PM EST 10 mg diphenhydrAMINE (Benadryl) (50 mg/mL) injection 25 mg 25 mg, Intravenous, ONCE, 1 dose, On Sun07/18/24 at 1100, Administer 30 minutes prior to chemotherapy., Routine Given 07/18/2024 11:56 AM EST 25 mg diphenhydrAMINE (Benadryl) (50 mg/mL) injection 25 mg 25 mg, Intravenous, ONCE, 1 dose, On Sun07/18/24 at 1315, May repeat once. IV push over 1 minute once (50mg maximum dose during reaction)., Routine Given 07/18/2024 12:50 PM EST 25 mg famotidine (Pepcid) (10 mg/mL) injection 20 mg 20 mg, Intravenous, ONCE, 1 dose, On Sun07/18/24 at 1045, Administer 30 minutes prior to chemotherapy. Given 07/18/2024 11:56 AM EST 20 mg famotidine (Pepcid) (10 mg/mL) injection 20 mg 20 mg, Intravenous, ONCE, 1 dose, On Sun07/18/24 at 1315, IV Push over 1 minute, Routine Given 07/18/2024 12:52 PM EST 20 mg palonosetron (Aloxi) (0.05 mg/mL) injection 0.25 mg 0.25 mg, Intravenous, ONCE, 1 dose, On Sun07/18/24 at 1015, Administer over 30 seconds. Administer prior to chemotherapy., Routine Given 07/18/2024 11:25 AM EST 0.25 mg ramucirumab (Cyramza) 700 mg in sodium chloride 0.9% 250 mL infusion 700 mg (rounded from 681 mg = 10 mg/kg/dose ? 68.1 kg Treatment plan Recorded weight), Intravenous, ONCE, 1 dose, On Sun07/18/24 at 1145, Administer over 90 Minutes, - Administer ramucirumab infusion via infusion pump through a separate infusion line. Flush the line with NS after each dose. - Compatible with 0.9% sodium chloride ONLY. - Hold for grade III or greater hypertension (SBP greater than 160 or DBP greater than 100). - If the first infusion is tolerated, all subsequent ramucirumab infusions may be administered over 30 minutes. - Infuse through a separate infusion line using an infusion pump; the use of a 0.22-micron protein-sparing filter is recommended., This agent is restricted to outpatient use. Is this drug being given as an outpatient? Yes New Bag 07/18/2024 12:28 PM EST 700 mg 166.7 mL/hr sodium chloride 0.9% infusion 1,000 mL, Intravenous, ONCE, 1 dose, On Sun07/18/24 at 1015 New Bag 07/18/2024 11:31 AM EST 1,000 mLs sodium chloride 0.9% infusion 500 mL, Intravenous, CONTINUOUS, Starting on Sun07/18/24 at 1300, Until 07/19/24 at 0435, Ensure patent IV access to keep vein open New Bag 07/18/2024 1:40 PM EST 100 mLs 100 mL/hr documented in this encounter Care Teams Construction Management Instructor Relationship Specialty Start Date End Date America Caro MD [address] [place] [address] PCP - General Family Medicine 03/31/24 documented as of this encounter
--- OUTSIDE RECORDS SUMMARY | 2024-08-22 01:16 | XMS_ITS | Encounter Summary ---
Author Organization [facility] Address [facility] [place] [address] Care Team Providers Care Transmission Calibration Engineer Name Role Phone America Caro MD Primary Care Provider [phone] Reason for Visit * Reason Comments Follow-up Encounter Details Date Type Department Care Team (Late st Contact Info) Description 07/18/2024 9:00 AM EST Office Visit H[place] [address] Albania Chahal MD [facility] [address] HEMATOLOGY/[place] [address] Thymic carcinoma Social History Tobacco Use Types Packs/Day Years Used Date Smoking Tobacco: Former Pipe Passive Smoke Exposure: Past Smokeless Tobacco: Never Comments:Smoke pipe for 10 y ears since 13 years old, Does still smoke pot but is slowing down. Passive Exposure Comments:Second hand smoke since 1677-4813 Alcohol Use Standard Drinks/Week Comments Yes 14 [...] any time in the past 12 m [facility], were you homeless or living in a snf (including now)? No 05/04/2024 Sex and Gender Information Value Date Recorded Sex Assigned at Not on file Gender Identity Not on file Sexual Orientation Not on file documented as of this encounter Last Filed Vital Signs Vital Sign Reading Time Taken Comments Blood Pressure 127/85 07/18/2024 8:56 AM EST Pulse 63 07/18/2024 8:56 AM EST Temperature 36.3 ??C (97.3 ??F) 07/18/2024 8:56 AM ES T Respiratory Rate 18 07/18/2024 8:56 AM EST Oxygen Saturation 100% 07/18/2024 8:56 AM EST Inhaled Oxygen Concentration - - Weight 68.1 kg (150 lb 2.1 oz) 07/18/2024 8:56 A M EST Height 161.6 cm (5' 3.62) 07/18/2024 8:56 AM ES T Body Mass Index 26.08 07/18/2024 8:56 AM EST documented in this encounter Progress Notes * Albania Chahal MD - 07/18/2024 9:00 AM EST Images from the original note [...] infusion 06/05/2024 Denosumab + 98.5 cc of ramucirumab, stopped infusion due to grade 21 infusion-related reaction (allergic reaction: hives, itchiness, normal BP, no respiratory symptoms) 06/26/2024 C1D1 carboplatin, paclitaxel without ramucirumab + denosumab (infusions delayed per patient's preference and infusion availability) 07/18/2024 C1D2 carboplatin, paclitaxel and re-challenge with ramucirumab Interval history: Mr. Javier comes for C2D1 of treatment, this time he will receive ramucirumab. Since his last visit,he developed again a generalized rash and was seen by water plumber. They feel like this is a hypersensitive reaction from chemotherapeutic but recommended to continue cancer treatment while treatingthe rash. Mr. Javier states that he is doing well. He is feeling full of energy, he is able to complete his normal activities. He hosted holiday libertarian for 10 people and cook everything by himself. Hisrash has subsided. He does not have chest pain or palpitations. There is no pain with deep breathing, or breathing changes. He denies headaches, tingling or numbness. His bowel movements are normal, with no diarrhea or constipation. Appetite has increased and is much improved. His weight is 150 pounds, he gained 7 pounds since last visit. He denies swelling of the legs. He denies fever, chills. REVIEW OF SYSTEMS: As per HPI. A 12 point [id number] was obtained. Symptoms as explained in the HPI. PAST MEDICAL HISTORY: Pericarditis diagnosed in March 2024 treated with colchicine, ibuprofen and Tylenol Carpal tunnel syndrome PAST SURGICAL HISTORY: Tonsillectomy and appendectomy at early age Cholecystectomy in 2023 MEDICATIONS: Current Outpatient Medications on File Prior to Visit Medication Sig Dispense Refill hydrOXYzine (Atarax) 10 mg tablet Take orally 10 mg at night, can take up to 2 pills (20 mg) 30 tablet 5 triamcinolone (Kenalog) 0.1 % Cream Apply thin amount topically twice daily to trunk and extremities x 14 days, take week off, repeat if needed for rash 453.6 g 2 [DISCONTINUED] prochlorperazine (Compazine) 10 mg tablet Take 1 tablet by mouth every 6 hours as needed for Nausea. 15 tablet 0 furosemide (Lasix) 20 mg [...] . 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 Alcohol: He drank heavily for a long [...] 24 hrs: Temp Pulse Resp BP SpO2 07/18/24 0856 36.3 ??C (97.3 ??F) 63 18 127/85 100 % GENERAL: Henry Javier appears well and [...] spinal or chest wall tenderness. LABORATORY STUDIES: CBC within normal limits CMP SHAWNA down to 133 otherwise wnl LDH stable at 144 TSH normal (06/26/2024) RADIOLOGY STUDIES REVIEWED: CT scan of the [...] He received a remote second opinion at [facility], where, based on his radiographic findings, it [...] treatment plan is to continue carboplatin, switch nab-paclitaxel to paclitaxel, discontinue pembrolizumab (due to insufficient [...] 31.9 months-not estimated), respectively. [[place] Oncol. 2023;35(9):817-826.] After the first 98.5 cc of ramicirumab, the patient developed a allergy mainly including hives and severe itchiness in his upper and lower extremities, chest and abdomen. His blood pressure was normal and he did not develop shortness of breath or tongue swelling. He was given 10 mg of dexamethasoneas pre-med, and 10 mg after the reaction, in addition to Benadryl and Pepcid. This eventually subsided. Considering that he is at high risk of infusion reaction, we decided to proceed with cycle 1 ofcarboplatin and Taxol. He tolerated well the infusion except for recurrence of rash at day 4 after infusion. He was seen by water plumber who thinks this is most likely morbiliform drug eruption (delayed, type IV hypersensitivity reaction). He has been stable. We plan to re challenge for cycle 2 with ramicirumab today. I reviewed the protocol with the pharmacist and we are increasing the dose of dexamethasone and Benadryl to be given at least an hour before the infusion. The rate of infusion oframicirumab will be decreased to 50% as well. Henry agrees with this plan. We will obtain a CT sca n imaging after the 2 cycles of current treatment (~08/04/2023). Overall, Mr. Javier has a good performance status (ECOG of 0), and appears well- suited for cancer treatment. [...] normal EF of 60%. Second opinion at [facility] advised todiscuss about pericardiocentesis. Cardiology on board. [...] First dose on 06/05/2024. SHAWNA trending down. Morbilliform Drug Eruption (Delayed, type IV hypersensitivity reaction) Given importance of current oncology regimen and tolerance of the medications apart from the rash, dermatology team recommended to continue with current oncology medications. He was started on triamcinolone 0.1% ointment twice daily x 14 days, and hydroxyzine 10mg: Take orally 10 mg at night, can take up to 2 pills (20 mg) if needed for itching relief. Thin superficial desquamation can be expected as rash resolves. Recommended using sensitive skin moisturizers, cerave, cetaphil moisture cream. RECOMMENDATIONS: He is okay to proceed with C2D1 of carboplatin, paclitaxel, and ramucirumab today. We are re challenging with ramucirumab today. Plan to premedicate in the setting of previous reaction to ramucirumab: Increase dexamethasone to 20 mg IV to be given an hour before the infusion. Provide 25 mg IV of Benadryl 30 minutes before the infusion. Ramicirumab: Infusion rate over 90 minutes (decreased by 50%). Plan to obtain a staging imaging after 2 cycles of treatment at [facility] (~08/07). Bone metastasis: On denosumab 120 mg every 3 weeks. Advised to start calcium and vitamin D. There is no need for a therapeutic thoracentesis at this time, as his breathing is stable during this visit. Continue treatment for pericarditis as directed by the tong setter. There is not overt indication of pericardiocentesis to this point. Improving. INFUSION TREATMENT NOTE: I was called by the infusion nurse staff to assess Mr. Javier. After 57 cc of ramucirumab, he developed generalized itchiness in his upper and lower extremities as well as thorax and abdomen. He was given additional dose of dexamethasone, Pepcid, and Benadryl. His symptoms persistent complicated by e levated blood pressure and swelling of his hands. White code was called. Epi was considered but hold it. He eventually improved after 1 hour of initial treatment. We are holding infusion now. He willbe discharged home, with plan for a infusion with carboplatin and Taxol stand alone next week. I provided alarm signs in case he needs additional treatment. I spent 30 minutes in the total care of this patient including review of records and imaging, [id number] consultation and counseling, interpretation of studies, coordination of care and documentation. Albania Milian M.D. Thoracic Oncology Pager # [phone] 07/18/24, 9:15 AM [facility] documented in this encounter Plan of Treatment Upcoming Encounters Date Type Department Care Team (Late st Contact Info) Description 08/22/2024 9:00 AM EST Infusion Hematology Oncology at [address] [phone] 08/26/2024 11:30 AM EST Telephone Hematology [place] [address] Aniya Saab, [facility] [place] [place] [address] 09/11/2024 8:30 AM EST Laboratory Appointment Lab at [facility] Hematology Oncology [address] [place] [phone] 09/11/2024 9:30 AM EST Office Visit Hematology [place] [address] Albania Chahal MD [facility] HEMATOLOGY/[place] [address] 09/11/2024 11:00 AM EST Appointment Hematology [place] [address] 10/02/2024 7:45 AM EDT Laboratory Appointment Lab at [facility] Hematology Oncology [address] [place] [phone] 10/02/2024 9:[address] [place] [address] Albania Chahal MD [facility] HEMATOLOGY/[place] [address] 10/02/2024 10:30 AM EDT Office Visit Hematology [place] [address] Albania Chahal MD [facility] HEMATOLOGY/[place] [address] 10/02/2024 12:00 PM EDT Appointment Hematology [place] [phone] documented as of this encounter Visit Diagnoses Diagnosis Thymic carcinoma Malignant neoplasm of thymus documented in this encounter Care Teams Transmission Calibration Engineer Relationship Specialty Start Date End Date America Caro MD [address] [place] [address] PCP - General Family Medicine 03/31/24 documented as of this encounter
--- OUTSIDE RECORDS SUMMARY | 2024-08-22 01:16 | XMS_ITS | Encounter Summary ---
Author Organization [facility] Address [facility] [place] [address] Care Team Providers Care Mold Cleaning And Storage Supervisor Name Role Phone America Caro MD Primary Care Provider [phone] Reason for Visit * Reason Comments Dermatitis * Consultation (Urgent) - Closed Specialty Diagnoses / Procedures Referred By Contac t Referred To Contact Dermatology Diagnoses Skin rash Albania Chahal MD [facility] [place]ATOLOGY/[place] [address] [facility] Dermatology [address] [place] [address] Referral ID Status Reason Start Date Expiration Date V isits Requested Visits Authorized [id number] Closed Consult, Test & Treat 05/23/2024 05/23/2025 1 1 Encounter Details Date Type Department Care Team (Late st Contact Info) Description 07/03/2024 11:00 AM EST Office Visit Dermatology at [facility] [address] [place] [address] Chrystal Garza MD [facility] [place] [address] Morbilliform rash Social History Tobacco Use Types Packs/Day Years Used Date Smoking Tobacco: Former Pipe Passive Smoke Exposure: Past Smokeless Tobacco: Never Comments:Smoke pipe for 10 y ears since 13 years old, Does still smoke pot but is slowing down. Passive Exposure Comments:Second hand smoke since 9500-7324 Alcohol Use Standard Drinks/Week Comments Yes 14 [...] any time in the past 12 m [facility], were you homeless or living in a nursing home (including now)? No 05/04/2024 Sex and Gender Information Value Date Recorded Sex Assigned at Not on file Gender Identity Not on file Sexual Orientation Not on file documented as of this encounter Progress Notes * Chrystal Garza MD - 07/03/2024 11:00 AM EST Images from the original note were not included. DEPARTMENT OF DERMATOLOGY Medical Dermatology Clinic Note Provider: Chrystal Garza MD Patient's preferred name Henry Preferred contact method for results [x]Phone []myD-H []Letter Detailed phone message OK? yes Are there any other people with whom we may discuss your care? 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 Received C1D1 carbo/taxol on 06/26. 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 Patient is referred to the clinic at the request of Albania Dutton for moderately itchy rash on the trunk and extremities. Patient reports the following: he was recently diagnosed with metastatic thymic carcinoma for whichhe has been undergoing systemic therapy infusions at [facility] Heme/Oncology. He notes development of rashes on his torso and upper legs a few days after his infusions. - He notes that the first incidence of the rash occurred 7 days after his first infusion. Subsequent episodes of his rash have occurred 3-4 days after his infusions, with exception of an allergic reaction he had to one of the therapies (denosumab and ramucirumab) later introduced into his treatmentregimen while in the infusion chair. - For the episodic rash, he was previously applying OTC cortisone 10 cream and was told to take benadryl at night (but he has not picked this up yet). He is currently using triamcinolone cream (prescription-strength) twice daily to trunk and extremities, with some relief. Review of Systems: General: Feeling well. Skin: No other skin concerns. Medications: Reviewed in eD-H Allergies: Reviewed in eD-H Skin Examination: Focused skin examination of the trunk and extremities was normal with the exception of the findingsbelow. Assessment/Plan #. Favor Morbilliform Drug Eruption (Delayed, type IV hypersensitivity reaction)- [place] blanchable macules and thin papules coalescing into patches and thin plaques on the trunk and extremities. - Onset is usually between 4 and 14 days after initiating a medication. The time to eruption may beshorter if the patient had previously been sensitized to the triggering medication. - Given predominant distribution of rash involving flexural sites (most notable during first episode of rash), rash possibly represents SDRIFE (a subtype of morbilliform, type IV hypersensitivity reaction with predilection for flexural sites). This rash can become more generalized over time with repeat exposure to the culprit medication. This type of reaction has been reported with taxol medications [PUBMED ID:[id number]]. - Patient reassured that rash is symptomatically bothersome, but is not dangerous - All of the medications listed below fit the timeline and have been associated with morbilliform drug eruption. While we cannot identify the triggering medication with absolute certainty, we favor that nab-paclitaxel > Carboplatin could be the likely culprit. - Drug timeline: 05/15/2024 C1D1 Carboplatin, nab-paclitaxel, pembrolizumab --> Reportedly first developed rash 7days after 05/22/2024 C1D8 Held nab-paclitaxel due to generalized rash attributed to medication 05/29/2024 C1D15 (interim improvement of rash) Nab-paclitaxel infusion --> patient uncertain butthinks he may have had rash ~4 days after infusion (no mention of rash recurrence per chart review) 06/05/2024 Carboplatin, nab-paclitaxel, Denosumab + 98.5 cc of ramicirumab, stopped infusion due tograde 2 infusion-related reaction (allergic reaction: hives, itchiness, normal BP, no respiratory symptoms) --> (Likely type I hypersensitivity reaction) 06/26/2024 C1D1 carboplatin, paclitaxel, denosumab (without ramicirumab) --> development of rash4 days after - When a culprit drug is considered essential without a suitable alternative, mild or moderate eruptions can be treated through with topical steroids and antihistamines while the medication is continued. - Can expect superficial desquamation as the eruption resolves. - No facial swelling today Plan: - Given importance of current oncology regimen and tolerance of the medications apart from the rash, we would recommend that he continue with current oncology medications and treatment of the rash symptomatically. - Start Rx: triamcinolone 0.1% ointment: Apply to the affected areas on trunk and extremities twicedaily x 14 days, take week off repeat if needed. - Discussed risks of prolonged topical corticosteroid use including atrophy, striae, hypopigmentation, tachyphylaxis. - Start Rx: Hydroxyzine 10mg: Take orally 10 mg at night, can take up to 2 pills (20 mg) if needed for itching relief. - Can consider pre-medication with systemic steroids prior to infusion with oncology team - Thin superficial desquamation can be expected as rash resolves. Recommended using sensitive skin moisturizers, cerave, cetaphil moisture cream - Recommendations discussed with oncology team - Patient advised to go to the ED if he experiences any of the following: involvement of mucosal sites (eyes, mouth, genitalia), blistering, full body redness, fevers, difficulty breathing Figure 1 Photo(s) taken and charted with patient's verbal consent. Other: Sun protection discussed (protective clothing and SPF30+ broad-spectrum sunscreen) RTC: PRN; patient to message on [employer] regarding progress in ~2 weeks. []Note routed to pathology secretary []Recall placed in scheduling system []Appointment scheduled at checkout Scribe attestation: LOUIS MALONE LPN has performed the documentation for this encounter in the presence of and acting as a scribe for Chrystal Garza MD. I performed the above scribed service and agree with the accuracy of the documentation in this encounter. Reviewed and signed by: Chrystal Garza MD Dermatology [facility] Patient seen and evaluated with staff dry roaster: Yara Pal MD Department of Dermatology [facility] * Yara Pal MD - 07/03/2024 11:00 AM EST I directly supervised Chrystal Garza MD in the care of this Dermatology patient in person. I saw and evaluated this patient with Chrystal Garza MD. Chrystal Garza MD presented the history and physical exam details to me, then we saw the patient together, and I confirmed these findings. I agree with details as written. My physical examination confirms Chrystal Garza MD's findings. The assessment and plan were formulated in discussion with me at the time of visit, and I agree with them as documented. Yara Pal MD Staff Pipe Layer Department of Dermatology [facility] documented in this encounter Plan of Treatment Upcoming Encounters Date Type Department Care Team (Late st Contact Info) Description 08/22/2024 9:00 AM EST Infusion Hematology Oncology at [address] [phone] 08/26/2024 11:30 AM EST Telephone Hematology [place] [address] [facility] [place] [address] 09/11/2024 8:30 AM EST Laboratory Appointment Lab at [facility] Hematology Oncology [address] [place] [phone] 09/11/2024 9:30 AM EST Office Visit Hematology [place] [address] Albania Chahal MD [facility] HEMATOLOGY/[place] [address] 09/11/2024 11:00 AM EST Appointment Hematology [place] [address] 10/02/2024 7:45 AM EDT Laboratory Appointment Lab at [facility] Hematology Oncology [address] [place] [phone] 10/02/2024 9:[address] [place] [address] Albania Chahal MD [facility] HEMATOLOGY/[place] [address] 10/02/2024 10:30 AM EDT Office Visit Hematology [place] [address] Albania Chahal MD [facility] HEMATOLOGY/[place] [address] 10/02/2024 12:00 PM EDT Appointment Hematology [place] [address] documented as of this encounter Visit Diagnoses Diagnosis Morbilliform rash Rash and other nonspecific skin eruption documented in this encounter Care Teams [employer] Cleaning [employer] Storage Supervisor Relationship Specialty Start Date End Date America Caro MD [address] [place] [address] PCP - General Family Medicine 03/31/24 documented as of this encounter
--- OUTSIDE RECORDS SUMMARY | 2024-08-22 01:16 | XMS_ITS | Encounter Summary ---
Author Organization [facility] Address [facility] [place] [address] Care Team Providers Care Quality Director Name Role Phone America Caro MD Primary Care Provider [phone] Reason for Referral * Diagnostic Test (Routine) - Authorized Specialty Diagnoses / Procedures Referred By Contac t Referred To Contact Radiology Diagnoses Thymic carcinoma Procedures CT Chest Abdomen Pelvis w Contrast (Generic) Albania Chahal MD [facility] [address] HEMATOLOGY/[place] [address] Referral ID Status Reason Start Date Expiration Date Visits Requested Visits Authorized [id number] Authorized Specialty Service Requested 08/19/2024 02/16/2026 1 1 * Consultation (Routine) - Authorized Specialty Diagnoses / Procedures Referred By Contac t Referred To Contact Diagnoses Thymic carcinoma Albania Chahal MD [facility] [address] HEMATOLOGY/[place] [address] [facility] [place] [address] Referral ID Status Reason Start Date Expiration Date Visits Requested Visits Authorized [id number] Authorized Continuity of Care 08/19/2024 08/19/2025 1 1 Encounter Details Date Type Department Care Team (Late st Contact Info) Description 08/19/2024 9:00 AM EST TH Visit (TeleHealth) Hematology and Oncology at [facility] [place] [address] Albania Chahal MD [facility] HEMATOLOGY/[place] [address] Thymic carcinoma Social History Tobacco Use Types Packs/Day Years Used Date Smoking Tobacco: Former Pipe Passive Smoke Exposure: Past Smokeless Tobacco: Never Comments:Smoke pipe for 10 y ears since 13 years old, Does still smoke pot but is slowing down. Passive Exposure Comments:Second hand smoke since 4649-2388 Alcohol Use Standard Drinks/Week Comments Yes 14 (1 standard drink = 0.6 oz pure alcohol) hardly any for the last month B1300 Health Literacy Answer Date Recor ded How often do you need to hav e someone help you when you read instructions, pamphlets, or other written material from your doctor or pharmacy? Never 05/04/2024 [facility] Utilities Answer Date Recorded In the past 12 months has th e [employer], gas, oil, or water [employer] threatened to shut off services in your [...] any time in the past 12 m [facility], were you homeless or living in a usp (including now)? No 05/04/2024 Sex and Gender Information Value Date Recorded Sex Assigned at Not on file Gender Identity Not on file Sexual Orientation Not on file documented as of this encounter Progress Notes * Albania Chahal MD - 08/19/2024 9:00 AM EST Images from the original note were not included. FOLLOW-UP THORACIC ONCOLOGY VISIT Patient identity was confirmed and patient verbally consented to this telephone visit and understands that this visit may be billed, similar to a clinic office visit. Patient understands that a telephone visit prevents the ability to complete a full evaluation which normally includes vitals and physical exam. Patient understands if there are concerns and he/she may be asked to have an office visit. Reason for consult: Thymic carcinoma Referred by: [...] to pembrolizumab 05/29/2024 C1D15 nab-paclitaxel infusion 06/05/2024 Started on denosumab. Plan to start carboplatin, paclitaxel and ramucirumab per REVELANCE trial. Developed grade 2 infusion-related reaction (allergic reaction: hives, itchiness, normal BP, no respiratory symptoms) after 98.5 cc of ramucirumab Infusion delayed per patient's preference to host Thanksgiving and infusion availability 06/26/2024 C1D1 Carboplatin, paclitaxel without ramucirumab 07/18/2024 C2D1 Carboplatin, paclitaxel and re-challenge with ramucirumab developed severe grade 2 infusion-related reaction (allergic reaction: hives, itchiness, elevated BP, no respiratory symptoms) after 57 cc of ramucirumab. No carbo or paclitaxel given 07/24/2024 C2D1 Carboplatin and paclitaxel 08/04/2024 Significant radiographic response to treatment 08/22/2024 C3D1 Carboplatin and paclitaxel planned at [facility] history: Mr. Javier is here for consideration of cycle 3 of carboplatin and paclitaxel. He states that he is doing good. He did not develop rash after his last infusion, but itchiness at night that eventually subsided. He had nausea occasionally and used Compazine twice over the last cycle. His weight is stable at 145 pounds, and remains with good appetite. He would like to see a glazier artist. His level ofenergy remains stable, he has some days where he feels more exhausted but otherwise he is able to walk ~3 miles per day with the dog. He was a bit constipated. Senna in the morning worked well with Miralax at night. He has dryness in his hands that improved with humidifier. He lost his bear. He denies headaches, tingling numbness. He denies fever, chills. REVIEW OF SYSTEMS: As per HPI. A 12 point ruzaci-[id number]-wngueeq was obtained. Symptoms as explained in the HPI. PAST MEDICAL HISTORY: Pericarditis diagnosed in March 2024 treated with colchicine, ibuprofen and Tylenol Carpal tunnel syndrome PAST SURGICAL HISTORY: Tonsillectomy and appendectomy at early age Cholecystectomy in 2023 MEDICATIONS: Current Outpatient Medications on File Prior to Visit Medication Sig Dispense Refill senna (Senokot) 8.6 mg tablet Take 2 tablets by mouth daily. 60 tablet 11 polyethylene glycoL (Miralax) 17 gram oral powder packet Take 17 g by mouth daily. 14 each 0 prochlorperazine (Compazine) 10 mg tablet Take 1 tablet by mouth every 6 hours as needed for Nausea. 15 tablet 0 hydrOXYzine (Atarax) 10 mg tablet Take orally 10 mg at night, can take up to 2 pills (20 mg) 30 tablet 5 triamcinolone (Kenalog) 0.1 % Cream Apply thin amount topically twice daily to trunk and extremities x 14 days, take week off, repeat if needed for rash 453.6 g 2 furosemide (Lasix) 20 mg tablet Take 20 [...] See note from 07/18/2024 for second reaction. FAMILY HISTORY: His sister was diagnosed with [...] . 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 Alcohol: He drank heavily for a long [...] He has never smoked tobacco. PHYSICAL EXAM No VS GENERAL: Henry Javier appears well and is in no acute distress. NEUROLOGICAL: Alert and oriented to person, place and time. LABORATORY STUDIES: From 07/24/2024: CBC within normal limits CMP SHAWNA down to 133 otherwise wnl LDH stable at 144 TSH normal (06/26/2024) Next ones scheduled on 08/22/2024. RADIOLOGY STUDIES REVIEWED: CT scan chest, abdomen and pelvis 08/04/2024: There is being very significant improvement in the appearance of the chest. All the previously present bilateral lung nodules have resolved there are no nodules or infiltrates evident in either lung edwards and there are no pleural effusions. The large mediastinal mass has significantly decreased in size and anterior mediastinal fat now hasresume more normal triangular configuration. There is also no longer interdigitation of the mass between the ascending thoracic aorta and IVC, as previously evident on CT scan of 05/09/2024. There isno longer abnormal thickening of the pericardium the anterior mediastinal fat is uniformly dense. This may be related to treated mass possible radiation changes or a combination of both. There is single enhancing lymph node now evident just anterior to the lower esophagus above the GE junction, this measuring 10 x 7 mm. This does not appear to have been present on the CT scan of the 05/09/2024. Therefore may be significant There are few lucencies within both iliac bones of pelvics which are not expansile and noted associated with cortical disruption. There nevertheless cannot exclude the possibility that these are possibly lytic metastatic osseous lesions. Recommend whole-body nuclear bone scan. Prostate is enlarged and indents the bladder base. CT scan of the chest 05/09/2024: Multiple [...] He received a remote second opinion at [facility], where, based on his [...] and paclitaxel in previously untreated advanced thymic carcinoma. After the first 98.5 cc of ramicirumab, [...] we decided to proceed with cycle 1 of carboplatin and Taxol. He tolerated well the infusion except for recurrence of rash at day4 after infusion. He was seen by first assistant manager who thinks this is most likely morbiliform drug eruption (delayed, type IV hypersensitivity reaction). He has been stable. We planned to re challenge for cycle 2 with ramicirumab, we provided additional protocol to avoid reaction infusion, however after only 57 cc of ramicirumab he developed a grade 3 reaction, this time with hypertension, swelling of the hands and generalized rash. White code was called. Infusion was stopped and his cycle 2 was reschedule successfully. Henry is plan to have cycle 3 locally this week. After 2 attempts of providing ramucirumab, we have agreed to avoid this infusion in the future. Moreover, we obtained a staging CT scan on 08/04/2024 that showed significant resolution of his lung nodules, as well as mediastinal mass, with resolution of pericardial thickening and pleural effusions. We are pleased with this response. Overall, Mr. Javier has a good performance status (ECOG of 0), and appears well-suited for cancer treatment. We plan to continue with treatment to complete 4 cycles and obtain a staging CT scanto make further steps in treatment. I briefly went over the logistics [...] with him today. Other: Left-side pleural effusion, resolved He underwent thoracentesis on 04/16/2024, s/p [address] cc [address] fluid[address] Freeman performed the procedure. No indication for immediate procedure now. His breathing is stable today. Per CT scan on 08/04/2024 did not demonstrate a pleural effusion. Pericarditis with large pleural effusion, resolved He was found with large pericardial effusion, treated with colchicine, ibuprofen and Tylenol. His pain has improved but still have some residual pain. PET CT showed pericardial thickening which couldrepresent pericarditis vs malignancy. Echo with normal EF of 60%. Second opinion at [facility] advised todiscuss about pericardiocentesis. Cardiology on board. His last CT scan from 08/04/2024 showed resolution of pericardial fluid. He had echocardiogram in 07/2024 with resolution of the pericardial fluid. Bone mets (sacrum, ribs) Started on denosumab every 3 weeks. Advised to start calcium and vitamin D. I reviewed side effectsof this medication including osteonecrosis of the jaw. He agrees with the plan. First dose on 06/05/2024. SHAWNA trending down. Per CT scan on 08/04/2024, there are few lucencies within both iliac bones of pelvics which are not expansile and noted associated with cortical disruption. We will continue with denosumab. Morbilliform Drug Eruption (Delayed, type IV hypersensitivity [...] RECOMMENDATIONS: He is okay to proceed with C3D1 of carboplatin, and paclitaxel, scheduled on 08/22/2024 at [facility]. He ishaving labs early on the appointment. He is okay to proceed with Xgeva SQ on 08/22/2024 at [facility]. Plan to obtain a staging imaging after 4 cycles of treatment at [facility] (~10/02). I will be discussing his case with radiation oncologist to discuss the role of radiation as definitive treatment. Bone metastasis: On denosumab 120 mg every 3 weeks. Continue on calcium and vitamin D. Continue treatment for pericarditis as directed by the intranet developer. There is not overt indication of pericardiocentesis to this point. Resolved. I spent 30 minutes in the total care of this patient including review of records and imaging, cayc-ni-rmnl consultation and counseling, interpretation of studies, coordination of care and documentation. Albania Milian M.D. Thoracic Oncology Pager # [phone] 08/15/24, 12:30 PM [facility] documented in this encounter Plan of Treatment Upcoming Encounters Date Type Department Care Team (Late st Contact Info) Description 08/22/2024 9:00 AM EST Infusion Hematology Oncology at [address] [address] 08/26/2024 11:30 AM EST Telephone Hematology [place] [address] Aniya Saab, [place] [facility] [place] [address] 09/11/2024 8:30 AM EST Laboratory Appointment Lab at [facility] [place] [address] [place] [phone] 09/11/2024 9:30 AM EST Office Visit Hematology [place] [address] Albania Chahal MD [facility] HEMATOLOGY/[place] [address] 09/11/2024 11:00 AM EST Appointment Hematology [place] [address] 10/02/2024 7:45 AM EDT Laboratory Appointment Lab at [facility] Hematology Oncology [address] [place] [phone] 10/02/2024 9:[address] [place] [address] Albania Chahal MD [facility] HEMATOLOGY/[place] [address] 10/02/2024 10:30 AM EDT Office Visit Hematology [place] [address] Albania Chahal MD [facility] HEMATOLOGY/[place] [address] 10/02/2024 12:00 PM EDT Appointment Hematology [place] [address] Scheduled Orders Name Type Priority Associated Diagnoses Orde r Schedule CT Chest Abdomen Pelvis w Contrast (Generic) Imaging Routine Thymic carcinoma Expected: 09/22/2024, Expires: 03/24/2025 Scheduled Referrals Name Type Priority Associated Diagnoses Orde r Schedule Referral to Nutrition Services Outpatient Referral Routine Thymic carcinoma Ordered: 08/19/2024 documented as of this encounter Visit Diagnoses Diagnosis Thymic carcinoma Malignant neoplasm of thymus documented in this encounter Care Teams Quality Director Relationship Specialty Start Date End Date America Caro MD [address] [place] [address] PCP - General Family Medicine 03/31/24 documented as of this encounter
--- OUTSIDE RECORDS SUMMARY | 2024-08-22 01:16 | XMS_ITS | Encounter Summary ---
Author Organization [facility] Address [facility] [place] [address] Care Team Providers Care Medical Sonographer Name Role Phone America Caro MD Primary Care Provider [phone] Encounter Details Date Type Department Care Team (Latest Contact Info) Description 06/26/2024 Travel Social History Tobacco Use Types Packs/Day Years Used Date Smoking Tobacco: Former Pipe Passive Smoke Exposure: Past Smokeless Tobacco: Never Comments:Smoke pipe for 10 y ears since 13 years old, Does still smoke pot but is slowing down. Passive Exposure Comments:Second hand smoke since 7503-1898 Alcohol Use Standard Drinks/Week Comments Yes 14 (1 standard drink = 0.6 oz pure alcohol) hardly any for the last month B1300 Health Literacy Answer Date Recor ded How often do you need to hav e someone help you when you read instructions, pamphlets, or other written material from your doctor or pharmacy? Never 05/04/2024 [facility] Utilities Answer Date Recorded In the past 12 months has [employer], gas, oil, or water [employer] threatened to shut off services in your [...] AM EST Infusion Hematology Oncology at [address] [address] 08/26/2024 11:30 AM EST Telephone Hematology [place] [phone] [facility] [place] [address] 09/11/2024 8:30 AM EST Laboratory Appointment Lab at [facility] Hematology Oncology [address] [place] [phone] 09/11/2024 9:30 AM EST Office Visit Hematology [place] [phone] Albania Chahal MD [facility] HEMATOLOGY/[place] [address] 09/11/2024 11:00 AM EST Appointment Hematology [place] [phone] 10/02/2024 7:45 AM EDT Laboratory Appointment Lab at [facility] Hematology Oncology [address] [place] [phone] 10/02/2024 9:[address] [place] [phone] Albania Chahal MD [facility] HEMATOLOGY[place] [address] 10/02/2024 10:30 AM EDT Office Visit Hematology [place] [phone] Albania Chahal MD [facility] HEMATOLOGY[place] [address] 10/02/2024 12:00 PM EDT Appointment Hematology and Oncology at [place] [phone] documented as of this encounter Visit Diagnoses Not on filedocumented in this encounter Care Teams Medical Sonographer Relationship Specialty Start Date End Date America Caro MD [address] [place] [address] PCP - General Family Medicine 03/31/24 documented as of this encounter
--- OUTSIDE RECORDS SUMMARY | 2024-08-22 01:16 | XMS_ITS | Encounter Summary ---
Author Organization [facility] Address [facility] [place] [address] Care Team Providers Care Boat Captain Name Role Phone America Caro MD Primary Care Provider [phone] Encounter Details Date Type Department Care Team (Latest Contact Info) Description 06/26/2024 9:30 AM EST Clinical Support Hematology [place] [phone] [facility] [place] [address] Non-small cell cancer of left lung Social History Tobacco Use Types Packs/Day Years Used Date Smoking Tobacco: Former Pipe Passive Smoke Exposure: Past Smokeless Tobacco: Never Comments:Smoke pipe for 10 y ears since 13 years old, Does still smoke pot but is slowing down. Passive Exposure Comments:Second hand smoke since 6279-8022 Alcohol Use Standard Drinks/Week Comments Yes 14 (1 standard drink = 0.6 oz pure alcohol) hardly any for the last month B1300 Health Literacy Answer Date Recor ded How often do you need to hav e someone help you when you read instructions, pamphlets, or other written material from your doctor or pharmacy? 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 He's here today for cycle 3 without ramicirumab . Pt has gained 5# during this time and hosted Thanksgiving at his home. He is feeling well, working out and eating well. No concerns at this time. Will f/u during next cycle. Wt Readings from Last 3 Encounters: 06/26/24 65.2 kg (143 lb 12.8 oz) 06/05/24 62.8 kg (138 lb 7.2 oz) 05/30/24 60 kg (132 lb 4.8 oz) 5# wt gain this visit 175# 2.5 yrs ago Lost mother/sister over 4 months 160# last year 127# few weeks ago Exercise: Demanding dog Walking with neighbor [phone] steps/day Estimated Needs: Calories: 8193-7790 kcal (30-35 kcal/kg) Protein: 76-95g (1.2-1.5g/kg) Meds: lasix, Vit D 1000 units Labs: noted Treatment related side effects: Loss of appetite (resolved at this time) Intervention: No new nutrition intervention at this time. Monitoring: Will f/u with pt during next chemo. Aniya Saab RD, CNSC, LD documented in this encounter Plan of Treatment Upcoming Encounters Date Type Department Care Team (Late st Contact Info) Description 08/22/2024 9:00 AM EST Infusion Hematology Oncology at [address] [address] 08/26/2024 11:30 AM EST Telephone Hematology [place] [address] [facility] [address] 09/11/2024 8:30 AM EST Laboratory Appointment Lab [place] [facility] [place] [address] [place] [phone] 09/11/2024 9:30 AM EST Office Visit Hematology [place] [address] Albania Chahal MD [facility] HEMATOLOGY/[place] [address] 09/11/2024 11:00 AM EST Appointment Hematology [place] [address] 10/02/2024 7:45 AM EDT Laboratory Appointment Lab at [facility] [place] On[place] [address] [place] [phone] 10/02/2024 9:[address] [place] [address] Albania Chahal MD [facility] HEMATOLOGY/[place] [address] 10/02/2024 10:30 AM EDT Office Visit Hematology [place] [address] Albania Chahal MD [facility] HEMATOLOGY[place] [address] 10/02/2024 12:00 PM EDT Appointment Hematology [place] [address] documented as of this encounter Visit Diagnoses Diagnosis Non-small cell cancer of left lung documented in this encounter Care Teams Boat Captain Relationship Specialty Start Date End Date America Caro MD [address] [place] [phone] PCP - General Family Medicine 03/31/24 documented as of this encounter
--- OUTSIDE RECORDS SUMMARY | 2024-08-22 01:16 | XMS_ITS | Encounter Summary ---
Author Organization [facility] [place] [address] Care Team Providers Care Brim Edge Trimmer Name Role Phone America Caro MD Primary Care Provider [phone] Encounter Details Date Type Department Care Team (Late st Contact Info) Description 07/22/2024 Telephone Hematology [place] [address] Tia Becerra, RN Social History Tobacco Use Types Packs/Day Years Used Date Smoking Tobacco: Former Pipe Passive Smoke Exposure: Past Smokeless Tobacco: Never Comments:Smoke pipe for 10 y ears since 13 years old, Does still smoke pot but is slowing down. Passive Exposure Comments:Second hand smoke since [id number] Alcohol Use Standard Drinks/Week Comments Yes 14 (1 standard drink = 0.6 oz pure alcohol) hardly any for the last month B1300 Health Literacy Answer Date Recor ded How often do you need to hav e someone help you when you read instructions, pamphlets, or other written material from your doctor or pharmacy? Never 05/04/2024 [facility] Utilities Answer Date Recorded In [...] any time in the past 12 m [facility], were you homeless or living in a long term (including now)? No 05/04/2024 Sex and Gender Information Value Date Recorded Sex Assigned at Not on file Gender Identity Not on file Sexual Orientation Not on file documented as of this encounter Miscellaneous Notes * Telephone Encounter - Tia Becerra RN - 07/22/2024 3:01 PM EST Caller: Henry Relationship: Self Clarified Two Patient Identifiers: [x] Oncology Diagnosis: Squamous cell ca of lung Current Treatment: Received ramucirumab infusion 07/18/2024 Reason For Call: Message received from school secretary: Henry called and reports he has diarrhea and some incontinence. He said he took 60ml of Milk of Magnesia last night and 30ml this morning. He can be reached at [phone] Assessment/Symptom Review (onset, location, duration, what makes it better or worse, pertinent positives and negatives): Call placed to pt to assess symptoms. States he has been constipated & he took MOM to help resolve. Last bowel movement was on 07/20. Yesterday he was able to pass sm amts of hard formed stool but still felt he had to move his bowels more. He took MOM 60 ml last evening & then an additional 30 ml this morning. He has since been passing sm amts of thick brown stool & is incontinent at times. He denies any abdominal pain, cramping, nausea, vomiting or distension. He is able to eat &drink. Feels like there is more hard stool that he is having difficulty passing. Disposition/Plan of Care: Follow home care directions Encouraged pt to drink at least 8-10 glasses of fluid/day & to try to remain physically active.Suggested he take a dose of miralax this evening & if no results repeat dose in the morning. Also suggested ducolax suppository x 1 to help pass solid stool. Instructed pt to call back to clinic if constipation persists or he develops any abdominal pain, cramping, nausea, vomiting or rectal bleeding. Reinforced to pt not to go more than 3 days without having a BM. Pt verbalized understanding and agreement and knows to call clinic with any concerns and/or questions. Patient/Caregiver verbalizes understanding of plan of care: Yes Patient/Caregiver agrees with plan: Yes Advised patient/caregiver to: call office back for any new or worsening symptoms Patient/Caregiver demonstrates understanding via teach back: Yes documented in this encounter Plan of Treatment Upcoming Encounters Date Type Department Care Team (Late st Contact Info) Description 08/22/2024 9:00 AM EST Infusion Hematology Oncology at [address] [phone] 08/26/2024 11:30 AM EST Telephone Hematology [place] [address] [facility] [place] [place] [address] 09/11/2024 8:30 AM EST Laboratory Appointment Lab at [facility] Hematology Oncology [address] [place] [phone] 09/11/2024 9:30 AM EST Office Visit Hematology [place] [phone] Albania Chahal MD [facility] HEMATOLOGY/[place] [address] 09/11/2024 11:00 AM EST Appointment Hematology [place] [address] 10/02/2024 7:45 AM EDT Laboratory Appointment Lab at [facility] Hematology Oncology [address] [place] [phone] 10/02/2024 9:[address] [place] [phone] Albania Chahal MD [facility] HEMATOLOGY/[place] [address] 10/02/2024 10:30 AM EDT Office Visit Hematology [place] [address] Albania hCahal MD [facility] HEMATOLOGY/[place] [address] 10/02/2024 12:00 PM EDT Appointment Hematology [place] [address] documented as of this encounter Visit Diagnoses Not on filedocumented in this encounter Care Teams Brim Edge Trimmer Relationship Specialty Start Date End Date America Caro MD [address] [place] [address] PCP - General Family Medicine 03/31/24 documented as of this encounter
--- OUTSIDE RECORDS SUMMARY | 2024-08-22 01:16 | XMS_ITS | Encounter Summary ---
Author Organization [facility] Address [facility] [place] [address] Care Team Providers Care Sales Designer Name Role Phone America Caro MD Primary Care Provider [phone] Encounter Details Date Type Department Care Team (Late st Contact Info) Description 07/25/2024 Orders Only Hematology [place] [address] Albania Chahal MD [facility] [address] HEMATOLOGY/[place] [address] Thymic carcinoma Social History Tobacco Use Types Packs/Day Years Used Date Smoking Tobacco: Former Pipe Passive Smoke Exposure: Past Smokeless Tobacco: Never Comments:Smoke pipe for 10 y ears since 13 years old, Does still smoke pot but is slowing down. Passive Exposure Comments:Second hand smoke since [id number] Alcohol Use Standard Drinks/Week Comments Yes 14 (1 standard drink = 0.6 oz pure alcohol) hardly any for the last month B1300 Health Literacy Answer Date Recor ded How often do you need to hav e someone help you when you read instructions, pamphlets, or other written material from your doctor or pharmacy? Never 05/04/2024 [facility] Utilities Answer Date Recorded In the [...] any time in the past 12 m [facility], were you homeless or living [...] AM EST Infusion Hematology Oncology at [address] [phone] 08/26/2024 11:30 AM EST Telephone Hematology [place] [address] [facility] [place] [address] 09/11/2024 8:30 AM EST Laboratory Appointment Lab at [facility] Hematology Oncology [address] [place] [phone] 09/11/2024 9:30 AM EST Office Visit Hematology [place] [phone] Albania Chahal MD [facility] HEMATOLOGY/[place] [address] 09/11/2024 11:00 AM EST Appointment Hematology and Oncology at [place] [phone] 10/02/2024 7:45 AM EDT Laboratory Appointment Lab at [facility] Hematology Oncology [address] [place] [phone] 10/02/2024 9:[address] [place] [phone] Albania Chahal MD [facility] HEMATOLOGY/[place] [address] 10/02/2024 10:30 AM EDT Office Visit Hematology [place] [phone] Albania Chahal MD [facility] HEMATOLOGY/[place] [address] 10/02/2024 12:00 PM EDT Appointment Hematology [place] [phone] Scheduled Orders Name Type Priority Associated Diagnoses Orde r Schedule CBC (with Diff) Lab Routine Thymic carcinoma Expected: 08/15/2024, Expires: 02/14/2025 Comprehensive metabolic panel Non-fasting Lab Routine Thymic carcinoma Expected: 08/15/2024, Expires: 02/14/2025 Magnesium Lab Routine Thymic carcinoma Expected: 08/15/2024, Expires: 02/14/2025 Lactate Dehydrogenase Lab Routine Thymic carcinoma Expected: 08/15/2024, Expires: 02/14/2025 Urinalysis with reflex Culture Lab Routine Thymic carcinoma Expected: 08/15/2024, Expires: 02/14/2025 documented as of this encounter Visit Diagnoses Diagnosis Thymic carcinoma Malignant neoplasm of thymus documented in this encounter Care Teams Sales Designer Relationship Specialty Start Date End Date America Caro MD [address] [place] [address] PCP - General Family Medicine 03/31/24 documented as of this encounter
--- OUTSIDE RECORDS SUMMARY | 2024-08-22 01:16 | XMS_ITS ---
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 BCN AMB ONC LUNG CANCER (Thymoma / Thymic) - CARBOplatin / PACLitaxeL / RAMUCIRUMAB* Plan Start Date:06/05/2024 Plan Provider:Albania Chahal MD Linked Problems Thymic carcinomaMedication m anagement Treatment Medications Current Day (Day 1 , Cycle 4 - Planned for 08/22/2024) Next Day (Day 1, Cycle 5 - Planned for 09/12/2024) CARBOplatin (Paraplatin) in 150 mL infusionPACLitaxeL (Taxol) ConcentratePACLitaxeL (Taxol) in Non-PVC sodium chloride 0.9% 500 mL infusionramucirumab (Cyramza) in sodium chloride 0.9% 250 mL infusion CARBOplatin (Paraplatin) 497 mg in dextrose 5% 299.7 mL infusionPACLitaxeL (Taxol) 350 mg in sodium chloride 0.9% Non-PVC 558.33 mL infusion CARBOplatin (Paraplatin) 497 mg in dextrose 5% 299.7 mL infusionPACLitaxeL (Taxol) 350 mg in sodium chloride 0.9% Non-PVC 558.33 mL infusion Past Plans ADULT TREATMENT Plan Name Start Date Discontinue Date Treatment Medications Discontinue Reason Plan Provider Cycles BCN AMB ONC NONSMALL CELL LUNG CANCER - CARBOplatin / PACLitaxeL ALBUMIN-BOUND (ABRAXANE) (100 mg/m2 (Days 1, 8 & 15) every 21 days) / PEMBROLIZUMAB 024 05/30/2024 CARBOplatin (Paraplatin) in 150 mL infusionPACLitaxeL albumin-bound (Abraxane)pembrolizuma b (Keytruda) in sodium chloride 0.9% 100 mL infusionpembrolizumab (Keytruda) Recon Soln Change In Level Of Care Albania Chahal MD 1 of 8 cycles started Radiation Treatments * No radiation treatments are documented for this patient in [facility]. Treatments may have been administered in another system. 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
--- OUTSIDE RECORDS SUMMARY | 2024-08-22 01:16 | XMS_ITS | Encounter Summary ---
[place] [address] Care Team Providers Care Oracle E Business Developer Name Role Phone America Caro MD Primary Care Provider [phone] Encounter Details Date Type Department Care Team (Latest Contact Info) Description 06/26/2024 7:00 AM EST Laboratory Appointment Lab [place] [facility] [place] On[place] [address] [place] [phone] Thymic carcinoma; Non-small cell lung cancer, unspecified laterality Social History Tobacco Use Types Packs/Day Years Used Date Smoking Tobacco: Former Pipe Passive Smoke Exposure: Past Smokeless Tobacco: Never Comments:Smoke pipe for 10 y ears since 13 years old, Does still smoke pot but is slowing down. Passive Exposure Comments:Second hand smoke since 8629-4733 Alcohol Use Standard Drinks/Week Comments Yes 14 (1 standard drink = 0.6 oz pure alcohol) hardly any for the last month B1300 Health Literacy Answer Date Recor ded How often do you need to hav e someone help you when you read instructions, pamphlets, or other written material from your doctor or pharmacy? Never 05/04/2024 [facility] Utilities Answer Date Recorded In the past [...] 9:00 AM EST Infusion Hematology Oncology at [address] [phone] 08/26/2024 11:30 AM EST Telephone [place]ematology [place] [phone] [facility] [place] [address] 09/11/2024 8:30 AM EST Laboratory Appointment Lab at [facility] Hematology Oncology [address] [place] [phone] 09/11/2024 9:30 AM EST Office Visit Hematology [place] [phone] Albania Chahal MD [facility] HEMATOLOGY/[place] [address] 09/11/2024 11:00 AM EST Appointment Hematology [place] [phone] 10/02/2024 7:45 AM EDT Laboratory Appointment Lab at [facility] Hematology Oncology [address] [place] [phone] 10/02/2024 9:[address] [place] [place] [phone] Albania Chahal MD [facility] [place]EMATOLOGY/[place] [address] 10/02/2024 10:30 AM EDT Office Visit Hematology [place] [phone] Albania Chahal MD [facility] [place]ATOLOGY/[place] [address] 10/02/2024 12:00 PM EDT Appointment Hematology [place] [phone] documented as of this encounter Procedures Procedure Name Priority Date/Time Associated Diagnosis Comments SCAN, PERIPHERAL BLOOD KARINA 6:56 AM EST Thymic carcinoma URINALYSIS DIPSTICK STAT 06/26/2024 6 :56 AM EST Thymic carcinoma CBC (WITH DIFF) STAT 06/26/2024 6:56 AM EST Thymic carcinoma MAGNESIUM STAT 06/26/2024 6:56 AM EST Thymic carcinoma LACTATE DEHYDROGENASE STAT 06/26/2024 6:56 AM EST Thymic carcinoma COMPREHENSIVE METABOLIC PANEL STAT 06/26/2024 6:56 AM EST Thymic carcinoma documented in this encounter Results * Scan, Peripheral Blood (06/26/2024 6:56 AM EST) RBC Morphology Abnormal 06/26/2024 7:38 AM EST [facility] Platelet Estimate Normal Normal 06/26/2024 7:38 AM EST [facility] Macrocyte 1-5 /HPF 06/26/2024 7:38 AM EST [facility] Microcyte 1-5 /HPF 06/26/2024 7:38 AM [facility] Ovalocytes 1-5 /HPF 06/26/2024 7:38 AM [facility] Blood VENOUS BLOOD SPECIMEN / Unknown Venipuncture / Unknown 06/26/2024 6:56 AM EST 06/26/2024 7:04 AM EST Albania Dutton MD HEMATOLOGY ORDER [facility]BER[facility] Performing Organization Address City/State/[facility] Co de Phone Number [facility] [place] [phone] * (ABNORMAL) CBC (with Diff) (06/26/2024 6:56 AM EST) White Blood Cell 5.14 4.00 - 9.50 x10(3)/mc L 06/26/2024 7:38 AM [facility] Red Blood Cell 5.08 4.58 - 5.54 x10(6)/mc L 06/26/2024 7:38 AM [facility] Hemoglobin 13.4(L) 13.7 - 16.5 g/dL 06/26/2024 7:38 AM [facility] Hematocrit 42.5 40.5 - 48.5 % 06/26/2024 7:38 AM [facility] Mean Cell Volume 83.7 82.9 - 93.1 fL 06/26/2024 7:38 AM [facility] Mean Cell Hemoglobin 26.4(L) 27.5 - 32.1 pg 06/26/2024 7:38 AM [facility] Mean Cell Hemoglobin Concentration 31.5(L) 32.0 - 35.7 g/dL 06/26/2024 7:38 AM [facility] Platelet 347 145 - 357 x10(3)/mc L 06/26/2024 7:38 AM [facility] Mean Platelet Volume 8.8 7.6 - 12.9 fL 06/26/2024 7:38 AM [facility] RDW Standard Deviation 68.1(H) 36.0 - 45.0 fL 06/26/2024 7:38 AM [facility] RDW coefficient of variation 23.1(H) 11.4 - 13.8 % 06/26/2024 7:38 AM [facility] NRBC% auto 0.0 % 06/26/2024 7:38 AM [facility] NRBC Absolute <0.01 <0.01 x10(3)/mc L 06/26/2024 7:38 AM [facility] Neutrophil % 64.3 % 06/26/2024 7:38 AM [facility] Neutrophil Absolute (ANC) - Automated 3.31 1.70 - 6.10 x10(3)/mc L 06/26/2024 7:38 AM [facility] Lymph % 24.9 % 06/26/2024 7:38 AM [facility] Lymph Absolute 1.28 0.90 - 3.20 x10(3)/mc L 06/26/2024 7:38 AM [facility] Monocyte % 7.8 % 06/26/2024 7:38 AM [facility] Monocyte Absolute 0.40 0.30 - 0.90 x10(3)/mc L 06/26/2024 7:38 AM [facility] Eos % 1.8 % 06/26/2024 7:38 AM [facility] Eos Absolute 0.09 0.00 - 0.40 x10(3)/mc L 06/26/2024 7:38 AM [facility] Basophil % 0.8 % 06/26/2024 7:38 AM [facility] Baso Absolute 0.04 0.00 - 0.10 x10(3)/mc L 06/26/2024 7:38 AM [facility] Immature Gran % 0.4 % 7:38 AM [facility] Immature Gran Absolute <0.04 0.00 - 0.04 x10(3)/mc L 06/26/2024 7:38 AM [facility] Blood VENOUS BLOOD SPECIMEN / Unknown Venipuncture / Unknown 06/26/2024 6:56 AM EST 06/26/2024 7:04 AM EST Albania Dutton MD HEMATOLOGY ORDER [facility]BER[facility] [place] [address] * (ABNORMAL) Comprehensive metabolic panel Non-fasting (06/26/2024 6:56 AM EST) Glucose 95 65 - 199 mg/dL 06/26/2024 7:36 AM [facility] Comment:Glucose Concentratio n >=200 mg/dL plus symptoms is consistent with Diabetes Mellitus. Blood Urea Nitrogen 19 10 - 20 mg/dL 06/26/2024 7:36 AM [facility] Creatinine 0.93 0.80 - 1.50 mg/dL 06/26/2024 7:36 AM [facility] Sodium 136 135 - 145 mMol/L 06/26/2024 7:36 AM [facility] Potassium 4.5 3.5 - 5.0 mMol/L 06/26/2024 7:36 AM [facility] Chloride 102 98 - 107 mMol/L 06/26/2024 7:36 AM [facility] Carbon Dioxide 26 22 - 31 mMol/L 06/26/2024 7:36 AM [facility] Anion Gap 8 5 - 15 mMol/L 06/26/2024 7:36 AM [facility] Calcium 9.4 8.5 - 10.5 mg/dL 06/26/2024 7:36 AM [facility] Protein, Total 7.5 6.1 - 8.0 g/dL 06/26/2024 7:36 AM [facility] Albumin 4.2 3.2 - 5.2 g/dL 06/26/2024 7:36 AM [facility] Aspartate Aminotransferase 26 <=39 unit/L 06/26/2024 7:36 AM [facility] Alanine Aminotransferase 38 0 - 55 unit/L 06/26/2024 7:36 AM [facility] Alkaline Phosphatase 162(H) 40 - 130 unit/L 06/26/2024 7:36 AM [facility] Bilirubin, Total 0.3 <=1.3 mg/dL 06/26/2024 7:36 AM [facility] Est Glomerular Filtration Rate - Male 88 mL/min/1. 73 m?? 06/26/2024 7:36 AM [facility] Comment: This patient's estimated [...] Calculator [employer] Fasting Status No 06/26/2024 7:36 AM [facility] Blood VENOUS BLOOD SPECIMEN / Unknown Venipuncture / Unknown 06/26/2024 6:56 AM EST 06/26/2024 7:04 AM EST Albania Dutton MD CHEMISTRY ORDERA BLES [facility] [place] [address] * Lactate Dehydrogenase (06/26/2024 6:56 AM EST) Lactate Dehydrogenase 145 110 - 220 unit/L 06/26/2024 7:36 AM [facility] Blood VENOUS BLOOD SPECIMEN / Unknown Venipuncture / Unknown 06/26/2024 6:56 AM EST 06/26/2024 7:04 AM EST Albania Schumacher Maicol Dutton MD CHEMISTRY ORDERA BLES Performing Organization Address [facility]/ZIP Co de Phone Number [facility] [place] [address] * Urinalysis Dipstick (06/26/2024 6:56 AM EST) Pathologist [facility] Glucose, Urine Dipstick Negative Negative 06/26/2024 7:08 AM [facility] Protein, Urine Dipstick Negative Negative 06/26/2024 7:08 AM [facility] Bilirubin, Urine Dipstick Negative Negative 06/26/2024 7:08 AM [facility] Comment:Clinical correlation required for positive Urine Bilirubin results as false positive may occur with some drugs and drug related products. If a false positive is suspected a serum total bilirubin should be considered if clinically indicated. Urobilinogen, Urine Dipstick Normal Normal, 0.2 mg/dL, 1.0 mg/dL 06/26/2024 7:08 AM [facility] pH, Urine (dipstick) 5.5 5.0 - 8.0 06/26/2024 7:08 AM [facility] Blood, Urine Dipstick Negative Negative 06/26/2024 7:08 AM [facility] Ketone, Urine Dipstick Negative Negative 06/26/2024 7:08 AM [facility] Nitrite, Urine Dipstick Negative Negative 06/26/2024 7:08 AM [facility] Leukocytes, Urine Dipstick Negative Negative 06/26/2024 7:08 AM [facility] Specific [place] Urine Automated 1.020 1.005 - 1.030 06/26/2024 7:08 AM [facility] Appearance, Urine Dipstick Clear Clear 06/26/2024 7:08 AM [facility] Color, Urine Dipstick Yellow Yellow, Dark Yellow 06/26/2024 7:08 AM [facility] CULTURE ADDED? 06/26/2024 7:08 AM [facility] Urine URINE SPECIMEN OBTAINED BY CLEAN CATCH PROCEDURE / Unknown Non Blood Collection / Unknown 06/26/2024 6:56 AM EST 06/26/2024 7:05 AM EST Albania Dutton MD URINE ORDERABLES Performing Organization Address City/[facility]/ZIP Co de Phone Number [facility] [place] [address] * Magnesium (06/26/2024 6:56 AM EST) Magnesium 0.96 0.69 - 1.07 mMol/L 06/26/2024 7:36 AM [facility] Blood VENOUS BLOOD SPECIMEN / Unknown Venipuncture / Unknown 06/26/2024 6:56 AM EST 06/26/2024 7:04 AM EST Albania Dutton MD CHEMISTRY ORDERA BLES [facility] [place] [address] documented in this encounter Visit Diagnoses Diagnosis Thymic carcinoma Malignant neoplasm of thymus Non-small cell lung cancer, unspecified laterality documented in this encounter Care Teams Oracle E Business Developer Relationship Specialty Start Date End Date America Caro MD [address] [place] [address] PCP - General Family Medicine 03/31/24 documented as of this encounter
--- OUTSIDE RECORDS SUMMARY | 2024-08-22 01:17 | XMS_ITS | Encounter Summary ---
Author Organization [facility] [place] [address] Care Team Providers Care Supportability Engineer Name Role Phone America Caro MD Primary Care Provider [phone] Encounter Details Date Type Department Care Team (Late st Contact Info) Description 05/15/2024 Notes Only [place] [phone] Fletcher Alvarado RN Social History Tobacco Use Types Packs/Day Years Used Date Smoking Tobacco: Former Pipe Passive Smoke Exposure: Past Smokeless Tobacco: Never Comments:Smoke pipe for 10 y ears since 13 years old, Does still smoke pot but is slowing down. Passive Exposure Comments:Second hand smoke since 8557-4974 Alcohol Use Standard Drinks/Week Comments Yes 14 (1 standard drink = 0.6 oz pure alcohol) hardly any for the last month B1300 Health Literacy Answer Date Recor ded How often do you need to hav e someone help you when you read instructions, pamphlets, or other written material from your doctor or pharmacy? Never 05/04/2024 [facility] Utilities Answer Date Recorded In [...] Consent to Participate in Clinical Trial STUDY [id number]: Immune profiling for cancer immunotherapy response Patient was seen in Hematology-Oncology clinic on 05/15/24. Patient was offered the opportunity to participate in study [id number]. Study protocol reviewed with patient, including description [...] and consented for lab draws on study [id number]. Consent form was signed and dated by [...] AM EST Infusion Hematology Oncology at [address] [phone] 08/26/2024 11:30 AM EST Telephone [place] [address] [facility] [place] [address] 09/11/2024 8:30 AM EST Laboratory Appointment Lab [place] [facility] [place] [address] [place] [phone] 09/11/2024 9:30 AM EST Office Visit [place] [address] Albania Chahal MD [facility] HEMATOLOGY/[place] [address] 09/11/2024 11:00 AM EST Appointment H[place]ology [place] [address] 10/02/2024 7:45 AM EDT Laboratory Appointment Lab [place] [facility] [place] [address] [place] [phone] 10/02/2024 9:[address] [place] [place] [phone] Albania Chahal MD [facility] HEMATOLOGY/[place] [address] 10/02/2024 10:30 AM EDT Office Visit [place] [address] Albania Chahal MD [facility] HEMATOLOGY/[place] [address] 10/02/2024 12:00 PM EDT Appointment [place]ology [place] [phone] documented as of this encounter Visit Diagnoses Not on filedocumented in this encounter Care Teams Supportability Engineer Relationship Specialty Start Date End Date America Caro MD [address] [place] [address] PCP - General Family Medicine 03/31/24 documented as of this encounter
--- OUTSIDE RECORDS SUMMARY | 2024-08-22 01:17 | XMS_ITS | Encounter Summary ---
Author Organization [facility] Address [facility] [place] [address] Care Team Providers Care Woodworking Machine Setter Name Role Phone America Caro MD Primary Care Provider [phone] Encounter Details Date Type Department Care Team (Late st Contact Info) Description 05/28/2024 Orders Only [place]ematology [place] [address] Albania Chahal MD [facility] DR HEMATOLOGY/[place] [address] Non-small cell lung cancer, unspecified laterality Social History Tobacco Use Types Packs/Day Years Used Date Smoking Tobacco: Former Pipe Passive Smoke Exposure: Past Smokeless Tobacco: Never Comments:Smoke pipe for 10 y ears since 13 years old, Does still smoke pot but is slowing down. Passive Exposure Comments:Second hand smoke since 9639-8668 Alcohol Use Standard Drinks/Week Comments Yes 14 (1 standard drink = 0.6 oz pure alcohol) hardly any for the last month B1300 Health Literacy Answer Date Recor ded How often do you need to hav e someone help you when you read instructions, pamphlets, or other written material from your doctor or pharmacy? Never 05/04/2024 [facility] Utilities Answer Date Recorded In the past [...] any time in the past 12 m [facility], were you homeless or living in [...] AM EST Infusion Hematology Oncology at [address] [address] 08/26/2024 11:30 AM EST Telephone [place]ology [place] [address] Aniya Saab, [facility] [place] [address] 09/11/2024 8:30 AM EST Laboratory Appointment Lab at [facility] Hematology Oncology [address] [place] [phone] 09/11/2024 9:30 AM EST Office Visit Hematology [place] [phone] Albania Chahal MD [facility] HEMATOLOGY[place] [address] 09/11/2024 11:00 AM EST Appointment Hematology [place] [address] 10/02/2024 7:45 AM EDT Laboratory Appointment Lab at [facility] Hematology Oncology [address] [place] [phone] 10/02/2024 9:[address] Scan at [place] [phone] Albania Chahal MD [facility] HEMATOLOGY/[place] [address] 10/02/2024 10:30 AM EDT Office Visit Hematology [place] [address] Albania Chahal MD [facility] HEMATOLOGY[place] [address] 10/02/2024 12:00 PM EDT Appointment Hematology and Oncology at [place] [phone] documented as of this encounter Visit Diagnoses Diagnosis Non-small cell lung cancer, unspecified laterality documented in this encounter Care Teams Woodworking Machine Setter Relationship Specialty Start Date End Date America Caro MD [address] [place] [address] PCP - General Family Medicine 03/31/24 documented as of this encounter
--- OUTSIDE RECORDS SUMMARY | 2024-08-22 01:17 | XMS_ITS | Encounter Summary ---
Author Organization [facility] Address [facility] [place] [address] Care Team Providers Care Alterations Workroom Clerk Name Role Phone America Caro MD Primary Care Provider [phone] Reason for Visit * Reason Comments Chemotherapy Cycle 1 Day 15 Abrax ane * Treatment/Therapy Plan Authorization (Routine) - Closed Specialty Diagnoses / Procedures Referred By Hank keller Referred To Contact Hematology and Oncology Diagnoses Non-small cell lung cancer, unspecified laterality Medication management Procedures TC PALONOSETRON HCL, 25MCG, INJ (ALOXI) TC APREPITANT, 1 MG, INJ TC PEMBROLIZUMAB, 1 MG, INJ TC PACLITAXEL PROTEIN-BOUND PARTICLES, 1MG, INJ TC PACLITAXEL PROTEIN-BOUND PARTICLES (M[place]OTHO REGENT), 1 MG, INJ TC CARBOPLATIN, 50MG, INJ (PARAPLATIN) Albania Chahal MD [facility] DR HEMATOLOGY/[place] [address] Albania Chahal MD [facility] [address] HEMATOLOGY/[place] [address] Referral ID Status Reason Start Date Expiration Date Visits Re quested Visits Authorized [id number] Closed 05/06/2024 05/06/2025 99 100 Encounter Details Date Type Department Care Team (Late st Contact Info) Description 05/30/2024 9:00 AM EST Infusion Hematology Oncology at [address] [address] Non-small cell lung cancer, unspecified laterality Social History Tobacco Use Types Packs/Day Years Used Date Smoking Tobacco: Former Pipe Passive Smoke Exposure: Past Smokeless Tobacco: Never Comments:Smoke pipe for 10 y ears since 13 years old, Does still smoke pot but is slowing down. Passive Exposure Comments:Second hand smoke since 3090-5794 Alcohol Use Standard Drinks/Week Comments Yes 14 (1 standard drink = 0.6 oz pure alcohol) hardly any for the last month B1300 Health Literacy Answer Date Recor ded How often do you need to hav e someone help you when you read instructions, pamphlets, or other written material from your doctor or pharmacy? Never 05/04/2024 [facility] Utilities Answer Date Recorded In [...] any time in the past 12 m [facility], were you homeless or living in a care home (including now)? No 05/04/2024 Sex and Gender Information Value Date Recorded Sex Assigned at Not on file Gender Identity Not on file Sexual Orientation Not on file documented as of this encounter Last Filed Vital Signs Vital Sign Reading Time Taken Comments Blood Pressure 124/70 05/30/2024 9:07 AM EST Pulse 61 05/30/2024 9:07 AM EST Temperature 36.3 ??C (97.3 ??F) 05/30/2024 9:07 AM ES T Respiratory Rate 18 05/30/2024 9:07 AM EST Oxygen Saturation 100% 05/30/2024 9:07 AM EST Inhaled Oxygen Concentration - - Weight 60 kg (132 lb 4.8 oz) 05/30/2024 9:07 AM EST Height 161.6 cm (5' 3.62) 05/30/2024 9:07 AM ES T Body Mass Index 22.98 05/30/2024 9:07 AM EST documented in this encounter Progress Notes * Gladys Govea RN - 05/30/2024 9:00 AM EST Images from the original note were not included. INFUSION THERAPY ADMINISTRATION NOTES DIAGNOSIS: NSCLS CYCLE #:1 Day 15 REASON FOR VISIT: Abraxane He is apart of the immunotherapy blood draw study. Today is day 15 so he doesn't need rosa be drawn. SUBJECTIVE Henry offers no complaints. States his chemo was held last week because of a rash that has since cleared up. He is accompanied by his nephew today. OBJECTIVE LAB DATA: IV ACCESS: PIV right hand Pre administration: Chemotherapy orders independently verified for drug name, route, and dosage per patient's height, weight and BSA by Gladys Govea RN & [facility] onsite. REACTIONS (DESCRIPTION, TIME, INTERVENTION AND EFFECTIVENESS) none ASSESSMENT Henry was awake, alert and tolerated treatment well. PLAN Return to clinic per routine. documented in this encounter Plan of Treatment Upcoming Encounters Date Type Department Care Team (Late st Contact Info) Description 08/22/2024 9:00 AM EST Infusion Hematology Oncology at [address] [address] 08/26/2024 11:30 AM EST Telephone Hematology [place] [address] [facility] [place] [address] 09/11/2024 8:30 AM EST Laboratory Appointment Lab at [facility] [place] [address] [place] [phone] 09/11/2024 9:30 AM EST Office Visit Hematology [place] [phone] Albania Chahal MD [facility] HEMATOLOGY/[place] [address] 09/11/2024 11:00 AM EST Appointment Hematology [place] [phone] 10/02/2024 7:45 AM EDT Laboratory Appointment Lab at [facility] Hematology Oncology [address] [place] [phone] 10/02/2024 9:[address] [place] [address] Albania Chahal MD [facility] HEMATOLOGY[place] [address] 10/02/2024 10:30 AM EDT Office Visit Hematology [place] [address] Albania Chahal MD [facility] HEMATOLOGY/[place] [address] 10/02/2024 12:00 PM EDT Appointment Hematology [place] [address] documented as of this encounter Visit Diagnoses Diagnosis Non-small cell lung cancer, unspecified laterality documented in this encounter Administered Medications Inactive Administered Medications - up to 3 most recent administrations Medication Order MAR Action Action Date Dose Rate Site ondansetron (Zofran) tablet 8 mg 8 mg, Oral, ONCE, 1 dose, On Sun05/30/24 at 0945, Administer prior to chemotherapy, Routine Given 05/30/2024 9:38 AM EST 8 mg PACLitaxeL albumin-bound (Abraxane) injection 164 mg 164 mg (100 mg/m2/dose ? 1.64 m2 Treatment Plan BSA from Recorded weight), Intravenous, ONCE, 1 dose, On Sun05/30/24 at 1045, Administer over 30 Minutes, Line primed with drug. Final product is a Suspension: resuspend by MILD agitation. Warning Vesicant/Irritant Medication New Bag 05/30/2024 10:19 AM EST 164 mg 65.6 mL/hr documented in this encounter Care Teams Alterations Workroom Clerk Relationship Specialty Start Date End Date America Caro MD [address] [place] [address] PCP - General Family Medicine 03/31/24 documented as of this encounter
--- OUTSIDE RECORDS SUMMARY | 2024-08-22 01:17 | XMS_ITS | Encounter Summary ---
Author Organization [facility] Address [facility] [place] [address] Care Team Providers Care Global Creative Chairman Name Role Phone America Caro MD Primary Care Provider [phone] Reason for Visit * Reason Comments Follow-up Encounter Details Date Type Department Care Team (Late st Contact Info) Description 05/15/2024 9:00 AM EDT Office Visit [place]ematology [place] [address] Albania Chahal MD [facility] [place]ATOLOGY/[place] [address] Non-small cell cancer of right lung Social History Tobacco Use Types Packs/Day Years Used Date Smoking Tobacco: Former Pipe Passive Smoke Exposure: Past Smokeless Tobacco: Never Comments:Smoke pipe for 10 y ears since 13 years old, Does still smoke pot but is slowing down. Passive Exposure Comments:Second hand smoke since 9331-4122 Alcohol Use Standard Drinks/Week Comments Yes 14 (1 standard drink = 0.6 oz pure alcohol) hardly any for the last month B1300 Health Literacy Answer Date Recor ded How often do you need to hav e someone help you when you read instructions, pamphlets, or other written material from your doctor or pharmacy? Never 05/04/2024 [facility] Utilities Answer Date Recorded In [...] any time in the past 12 m [facility], were you homeless or living [...] SYSTEMS: As per HPI. A 12 point [id number] was obtained. Symptoms as explained in the [...] . 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 Alcohol: He drank heavily for a long [...] Considering this information, we will proceed with [id number] with carboplatin, Abraxane, and pembrolizumab. Overall, Mr. [...] with infusions scheduled for Day 1 at [facility] and standalone infusions on Days 8 and 15 at [facility]. He has anemia and upon treatment response, [...] treatment for pericarditis as directed by the [facility]. Enroll to [facility]. I spent 30 minutes in the total care of this patient including review of records and imaging, [id number] consultation and counseling, interpretation of studies, coordination of care and documentation. Albania Milian M.D. Thoracic Oncology Pager # [phone] 05/15/24, 9:26 AM [facility] documented in this encounter Plan of Treatment Upcoming Encounters Date Type Department Care Team (Late st Contact Info) Description 08/22/2024 9:00 AM EST Infusion Hematology Oncology at [address] [phone] 08/26/2024 11:30 AM EST Telephone [place] [address] Aniya Saab, [facility] [place] [address] 09/11/2024 8:30 AM EST Laboratory Appointment Lab at [facility] Hematology Oncology [address] [place] [phone] 09/11/2024 9:30 AM EST Office Visit [place] [phone] Albania Chahal MD [facility] HEMATOLOGY[place] [address] 09/11/2024 11:00 AM EST Appointment [place]ematology [place] [address] 10/02/2024 7:45 AM EDT Laboratory Appointment Lab at [facility] Hematology [address] [address] 10/02/2024 9:[address] [place] [place] [address] Albania Chahal MD [facility] [place]ATOLOGY[place] [address] 10/02/2024 10:30 AM EDT Office Visit [place]ology [place] [address] Albania Chahal MD [facility] [place]OLOG[place] [address] 10/02/2024 12:00 PM EDT Appointment [place]ematology [place] [address] documented as of this encounter Visit Diagnoses Diagnosis Non-small cell cancer of right lung documented in this encounter Care Teams Global Creative Chairman Relationship Specialty Start Date End Date America Caro MD [address] [place] [address] PCP - General Family Medicine 03/31/24 documented as of this encounter
--- OUTSIDE RECORDS SUMMARY | 2024-08-22 01:17 | XMS_ITS | Encounter Summary ---
Author Organization [facility] Address [facility] [place] [address] Care Team Providers Care Truck Assembler Name Role Phone America Caro MD Primary Care Provider [phone] Encounter Details Date Type Department Care Team (Latest Contact Info) Description 06/05/2024 Travel Social History Tobacco Use Types Packs/Day Years Used Date Smoking Tobacco: Former Pipe Passive Smoke Exposure: Past Smokeless Tobacco: Never Comments:Smoke pipe for 10 y ears since 13 years old, Does still smoke pot but is slowing down. Passive Exposure Comments:Second hand smoke since 5282-3438 Alcohol Use Standard Drinks/Week Comments Yes 14 [...] Recorded In the past 12 months has [employer], gas, oil, or water [employer] threatened to shut off services in your [...] time in the past 12 m [facility], were you homeless or living [...] AM EST Infusion Hematology Oncology at [address] [address] 08/26/2024 11:30 AM EST Telephone Hematology [place] [phone] [facility] [place] [address] 09/11/2024 8:30 AM EST Laboratory Appointment Lab at [facility] Hematology Oncology [address] [place] [phone] 09/11/2024 9:30 AM EST Office Visit Hematology [place] [phone] Albania Chahal MD [facility] [place]OLOG[place] [address] 09/11/2024 11:00 AM EST Appointment Hematology [place] [phone] 10/02/2024 7:45 AM EDT Laboratory Appointment Lab at [facility] Hematology Oncology [address] [place] [phone] 10/02/2024 9:[address] [place] [phone] Albania Chahal MD [facility] HEMATOLOGY[place] [address] 10/02/2024 10:30 AM EDT Office Visit Hematology [place] [phone] Albania Chahal MD [facility] HEMATOLOGY[place] [address] 10/02/2024 12:00 PM EDT Appointment Hematology and Oncology at [place] [phone] documented as of this encounter Visit Diagnoses Not on filedocumented in this encounter Care Teams Truck Assembler Relationship Specialty Start Date End Date America Caro MD [address] [place] [address] PCP - General Family Medicine 03/31/24 documented as of this encounter
--- OUTSIDE RECORDS SUMMARY | 2024-08-22 01:17 | XMS_ITS | Encounter Summary ---
Author Organization [facility] [place] [address] Care Team Providers Care Director Clinical Pharmacology Name Role Phone America Caro MD Primary Care Provider [phone] Encounter Details Date Type Department Care Team (Late st Contact Info) Description 05/28/2024 Telephone Hematology [place] [address] Rose Roe, RN Social History Tobacco Use Types Packs/Day Years Used Date Smoking Tobacco: Former Pipe Passive Smoke Exposure: Past Smokeless Tobacco: Never Comments:Smoke pipe for 10 y ears since 13 years old, Does still smoke pot but is slowing down. Passive Exposure Comments:Second hand smoke since 7403-2385 Alcohol Use Standard Drinks/Week Comments Yes 14 [...] time in the past 12 m [facility], were you homeless or living in a fpc (including now)? No 05/04/2024 Sex and Gender Information Value Date Recorded Sex Assigned at Not on file Gender Identity Not on file Sexual Orientation Not on file documented as of this encounter Miscellaneous Notes * Telephone Encounter - Rose Roe RN - 05/28/2024 3:32 PM EST Labs drawn on 05/28 at [facility] for carbo/abraxane/alimta scheduled for 05/29. Results indexed and reviewed: WBC 3.86 Plt 512 ANC2.29 LFT and Bun/Cr ok. Provider made aware. Pt called to review results and let him know his labs are fine to received chemo. documented in this encounter Plan of Treatment Upcoming Encounters Date Type Department Care Team (Late st Contact Info) Description 08/22/2024 9:00 AM EST Infusion Hematology Oncology at [address] [address] 08/26/2024 11:30 AM EST Telephone [place]ematology [place] [phone] Aniya Saab, [facility] [place] [address] 09/11/2024 8:30 AM EST Laboratory Appointment Lab at [facility] Hematology Oncology [address] [place], [place] [phone] 09/11/2024 9:30 AM EST Office Visit Hematology and Oncology at [place] [phone] Albania Chahal MD [facility] HEMATOLOGY/[place] [address] 09/11/2024 11:00 AM EST Appointment Hematology and Oncology at [address] 10/02/2024 7:45 AM EDT Laboratory Appointment Lab at [facility] Hematology Oncology [address] [place] [phone] 10/02/2024 9:[address] Scan at [place] [phone] Albania Chahal MD [facility] HEMATOLOGY/[place] [address] 10/02/2024 10:30 AM EDT Office Visit [place]ematology [place] [address] Albania Chahal MD [facility] HEMATOLOGY/[place] [address] 10/02/2024 12:00 PM EDT Appointment Hematology and Oncology at [place] [phone] documented as of this encounter Visit Diagnoses Not on filedocumented in this encounter Care Teams Director Clinical Pharmacology Relationship Specialty Start Date End Date America Caro MD [address] [place] [address] PCP - General Family Medicine 03/31/24 documented as of this encounter
--- OUTSIDE RECORDS SUMMARY | 2024-08-22 01:17 | XMS_ITS | Encounter Summary ---
Author Organization [facility] Address [facility] [place] [address] Care Team Providers Care Agitator Operator Name Role Phone America Caro MD Primary Care Provider [phone] Encounter Details Date Type Department Care Team (Late st Contact Info) Description 05/20/2024 Orders Only [place] [address] Albania Chahal MD [facility] DR HEMATOLOGY/[place] [address] Non-small cell cancer of left lung Social History Tobacco Use Types Packs/Day Years Used Date Smoking Tobacco: Former Pipe Passive Smoke Exposure: Past Smokeless Tobacco: Never Comments:Smoke pipe for 10 y ears since 13 years old, Does still smoke pot but is slowing down. Passive Exposure Comments:Second hand smoke since 9343-2995 Alcohol Use Standard Drinks/Week Comments Yes 14 (1 standard drink = 0.6 oz pure alcohol) hardly any for the last month B1300 Health Literacy Answer Date Recor ded How often do you need to hav e someone help you when you read instructions, pamphlets, or other written material from your doctor or pharmacy? Never 05/04/2024 [facility] Utilities Answer Date Recorded In the [...] any time in the past 12 m [facility], were you homeless or living [...] additional stains suggested by the oncologist from [facility]. I have received the report and will be discussing in detailed during our next visit. documented in this encounter Plan of Treatment Upcoming Encounters Date Type Department Care Team (Late st Contact Info) Description 08/22/2024 9:00 AM EST Infusion Hematology Oncology at [address] [address] 08/26/2024 11:30 AM EST Telephone [place] [address] Aniya Saab, [place] [facility] [place] [address] 09/11/2024 8:30 AM EST Laboratory Appointment Lab at [facility] [place] [address] [place] [phone] 09/11/2024 9:30 AM EST Office Visit [place] [address] Albania Chahal MD [facility] [place]ATOLOG[place] [address] 09/11/2024 11:00 AM EST Appointment [place] [address] 10/02/2024 7:45 AM EDT Laboratory Appointment Lab at [facility] [place] On[place] [address] [place] [phone] 10/02/2024 9:[address] [place] [address] Albania Chahal MD [facility] HEMATOLOGY/[place] [address] 10/02/2024 10:30 AM EDT Office Visit [place] [address] Albania Chahal MD [facility] [place]ATOLOG[place] [address] 10/02/2024 12:00 PM EDT Appointment [place] [address] Scheduled Orders Name Type Priority Associated Diagnoses Orde r Schedule Anatomical Pathology Additional Testing Pathology/Cytol ogy Routine Non-small cell cancer of left lung Ordered: 05/20/2024 documented as of this encounter Visit Diagnoses Diagnosis Non-small cell cancer of left lung documented in this encounter Care Teams Agitator Operator Relationship Specialty Start Date End Date America Caro MD [address] [place] [address] PCP - General Family Medicine 03/31/24 documented as of this encounter
--- OUTSIDE RECORDS SUMMARY | 2024-08-22 01:17 | XMS_ITS | Encounter Summary ---
Author Organization [facility] Address [facility] [place] [address] Care Team Providers Care Relay Adjuster Name Role Phone America Caro MD Primary Care Provider [phone] Encounter Details Date Type Department Care Team (Latest Contact Info) Description 05/16/2024 Travel Social History Tobacco Use Types Packs/Day Years Used Date Smoking Tobacco: Former Pipe Passive Smoke Exposure: Past Smokeless Tobacco: Never Comments:Smoke pipe for 10 y ears since 13 years old, Does still smoke pot but is slowing down. Passive Exposure Comments:Second hand smoke since 1235-4862 Alcohol Use Standard Drinks/Week Comments Yes 14 (1 standard drink = 0.6 oz pure alcohol) hardly any for the last month B1300 Health Literacy Answer Date Recor ded How often do you need to hav e someone help you when you read instructions, pamphlets, or other written material from your doctor or pharmacy? Never 05/04/2024 [facility] Utilities Answer Date Recorded In the past 12 months has [employer], gas, oil, or water [employer] threatened to shut off services in your [...] AM EST Infusion Hematology Oncology at [address] [address] 08/26/2024 11:30 AM EST Telephone Hematology [place] [phone] [facility] [place] [address] 09/11/2024 8:30 AM EST Laboratory Appointment Lab [place] [facility] [place] [address] [place] [phone] 09/11/2024 9:30 AM EST Office Visit Hematology [place] [phone] Albania Chahal MD [facility] HEMATOLOGY/[place] [address] 09/11/2024 11:00 AM EST Appointment Hematology [place] [phone] 10/02/2024 7:45 AM EDT Laboratory Appointment Lab at [facility] [place] [address] [place] [phone] 10/02/2024 9:[address] [place] [phone] Albania Chahal MD [facility] HEMATOLOGY/[place] [address] 10/02/2024 10:30 AM EDT Office Visit Hematology [place] [phone] Albania Chahal MD [facility] HEMATOLOGY/[place] [address] 10/02/2024 12:00 PM EDT Appointment Hematology and Oncology at [place] [phone] documented as of this encounter Visit Diagnoses Not on filedocumented in this encounter Care Teams Relay Adjuster Relationship Specialty Start Date End Date America Caro MD [address] [place] [address] PCP - General Family Medicine 03/31/24 documented as of this encounter
--- OUTSIDE RECORDS SUMMARY | 2024-08-22 01:17 | XMS_ITS | Encounter Summary ---
Author Organization [facility] Address [facility] [place] [address] Care Team Providers Care Shirt Operator Name Role Phone America Caro MD Primary Care Provider [phone] Encounter Details Date Type Department Care Team (Latest Contact Info) Description 06/20/2024 Travel Social History Tobacco Use Types Packs/Day Years Used Date Smoking Tobacco: Former Pipe Passive Smoke Exposure: Past Smokeless Tobacco: Never Comments:Smoke pipe for 10 y ears since 13 years old, Does still smoke pot but is slowing down. Passive Exposure Comments:Second hand smoke since 0323-8809 Alcohol Use Standard Drinks/Week Comments Yes 14 [...] Recorded In the past 12 months has [employer], gas, oil, or water [employer] threatened to shut off services in your [...] 9:00 AM EST Infusion Hematology Oncology at [address] [address] 08/26/2024 11:30 AM EST Telephone Hematology [place] [phone] [facility] [place] [address] 09/11/2024 8:30 AM EST Laboratory Appointment Lab [place] [facility] [place] [address] [place] [phone] 09/11/2024 9:30 AM EST Office Visit Hematology [place] [phone] Albania Chahal MD [facility] HEMATOLOGY/[place] [address] 09/11/2024 11:00 AM EST Appointment Hematology [place] [phone] 10/02/2024 7:45 AM EDT Laboratory Appointment Lab [place] [facility] [place] [address] [place] [phone] 10/02/2024 9:[address] [place] [phone] Albania Chahal MD [facility] HEMATOLOGY[place] [address] 10/02/2024 10:30 AM EDT Office Visit Hematology [place] [phone] Albania Chahal MD [facility] HEMATOLOGY[place] [address] 10/02/2024 12:00 PM EDT Appointment Hematology and Oncology at [place] [phone] documented as of this encounter Visit Diagnoses Not on filedocumented in this encounter Care Teams Shirt Operator Relationship Specialty Start Date End Date America Caro MD [address] [place] [address] PCP - General Family Medicine 03/31/24 documented as of this encounter
--- OUTSIDE RECORDS SUMMARY | 2024-08-22 01:17 | XMS_ITS | Encounter Summary ---
Author Organization [facility] Address [facility] [place] [address] Care Team Providers Care Administrative Secretary Name Role Phone America Caro MD Primary Care Provider [phone] Reason for Referral * Consultation (Urgent) - Closed Specialty Diagnoses / Procedures Referred By Contac t Referred To Contact Dermatology Diagnoses Skin rash Albania Chahal MD [facility] DR HEMATOLOGY/[place] [address] [facility] Dermatology [address] [place] [address] Referral ID Status Reason Start Date Expiration Date V isits Requested Visits Authorized [id number] Closed Consult, Test & Treat 05/23/2024 05/23/2025 1 1 Encounter Details Date Type Department Care Team (Late st Contact Info) Description 05/23/2024 Orders Only Hematology [place] [address] Albania Chahal MD [facility] DR HEMATOLOGY/[place] [address] Skin rash Social History Tobacco Use Types Packs/Day Years Used Date Smoking Tobacco: Former Pipe Passive Smoke Exposure: Past Smokeless Tobacco: Never Comments:Smoke pipe for 10 y ears since 13 years old, Does still smoke pot but is slowing down. Passive Exposure Comments:Second hand smoke since 4446-2119 Alcohol Use Standard Drinks/Week Comments Yes 14 (1 standard drink = 0.6 oz pure alcohol) hardly any for the last month B1300 Health Literacy Answer Date Recor ded How often do you need to hav e someone help you when you read instructions, pamphlets, or other written material from your doctor or pharmacy? Never 05/04/2024 [facility] Utilities Answer Date Recorded [...] any time in the past 12 m [facility], were you homeless or living in a retirement (including now)? No 05/04/2024 Sex and Gender Information Value Date Recorded Sex Assigned at Not on file Gender Identity Not on file Sexual Orientation Not on file documented as of this encounter Progress Notes * Albania Chahal MD - 05/23/2024 9:58 AM EST Mr. Javier presented today to [facility] to have his C1D8 of Abraxane [...] and sent a referral for derma at [facility]. I am also directly reaching out to the derm colleagues from the [facility] to have their insights. We advised him that if thisis getting worse (new sites of rash with worsening of the skin lesions), and/or his SOB is progressively worse, he might need to the ED for oral/IV treatment with steroids. Albania Milian M.D. Medical Oncology Pager # [phone] 05/23/24, 10:21 [place] [address] documented in this encounter Plan of Treatment Upcoming Encounters Date Type Department Care Team (Late Contact Info) Description 08/22/2024 9:00 AM EST Infusion Hematology Oncology at [address] [address] 08/26/2024 11:30 AM EST Telephone Hematology [place] [address] [facility] [place] [address] 09/11/2024 8:30 AM EST Laboratory Appointment Lab at [facility] [place] Hematology Oncology [address] [place] [phone] 09/11/2024 9:30 AM EST Office Visit Hematology [place] [address] Albania Chahal MD [facility] [place] [address] 09/11/2024 11:00 AM EST Appointment Hematology and Oncology at [place] [phone] 10/02/2024 7:45 AM EDT Laboratory Appointment Lab at [facility] Hematology Oncology [address] [place] [phone] 10/02/2024 9:[address] Scan at [place] [phone] Albania Chahal MD [facility] [place] [address] 10/02/2024 10:30 AM EDT Office Visit Hematology [place] [address] Albania Chahal MD [facility] [place] [address] 10/02/2024 12:00 PM EDT Appointment Hematology and Oncology at [place] [phone] Scheduled Referrals Name Type Priority Associated Diagnoses Order Schedule Referral to Dermatology Outpatient Referral Urgent Skin rash Ordered: 05/23/2024 documented as of this encounter Visit Diagnoses Diagnosis Skin rash Rash and other nonspecific skin eruption documented in this encounter Care Teams Administrative Secretary Relationship Specialty Start Date End Date America Caro MD [address] [place] [address] PCP - General Family Medicine 03/31/24 documented as of this encounter
--- OUTSIDE RECORDS SUMMARY | 2024-08-22 01:17 | XMS_ITS | Encounter Summary ---
Author Organization [facility] Address [facility] [address] Care Team Providers Care Hogshead Mat Inspector Name Role Phone America Caro MD Primary Care Provider [phone] Encounter Details Date Type Department Care Team (Latest Contact Info) Description 05/23/2024 Travel Social History Tobacco Use Types Packs/Day Years Used Date Smoking Tobacco: Former Pipe Passive Smoke Exposure: Past Smokeless Tobacco: Never Comments:Smoke pipe for 10 y ears since 13 years old, Does still smoke pot but is slowing down. Passive Exposure Comments:Second hand smoke since 6915-0774 Alcohol Use Standard Drinks/Week Comments Yes 14 (1 standard drink = 0.6 oz pure alcohol) hardly any for the last month B1300 Health Literacy Answer Date Recor ded How often do you need to hav e someone help you when you read instructions, pamphlets, or other written material from your doctor or pharmacy? Never 05/04/2024 [facility] Utilities Answer Date Recorded In the past 12 months has [employer], gas, oil, or water [employer] threatened to shut off services in your [...] AM EST Infusion Hematology Oncology at [address] [address] 08/26/2024 11:30 AM EST Telephone Hematology [place] [phone] [facility] [place] [address] 09/11/2024 8:30 AM EST Laboratory Appointment Lab [place] [facility] [place] [address] [place] [phone] 09/11/2024 9:30 AM EST Office Visit Hematology [place] [phone] Albania Chahal MD [facility] [place]ATOLOGY/[place] [address] 09/11/2024 11:00 AM EST Appointment Hematology [place] [phone] 10/02/2024 7:45 AM EDT Laboratory Appointment Lab [place] [facility] [place] [address] [place] [phone] 10/02/2024 9:[address] [place] [phone] Albania Chahal MD [facility] [place]ATOLOGY[place] [address] 10/02/2024 10:30 AM EDT Office Visit Hematology [place] [phone] Albania Chahal MD [facility] [place]ATOLOGY[place] [address] 10/02/2024 12:00 PM EDT Appointment Hematology and Oncology at [place] [phone] documented as of this encounter Visit Diagnoses Not on filedocumented in this encounter Care Teams Hogshead Mat Inspector Relationship Specialty Start Date End Date America Caro MD [address] [place] [address] PCP - General Family Medicine 03/31/24 documented as of this encounter
--- OUTSIDE RECORDS SUMMARY | 2024-08-22 01:17 | XMS_ITS | Encounter Summary ---
Author Organization [facility] [place] [address] Care Team Providers Care Supervisor Wool Shearing Name Role Phone America Caro MD Primary Care Provider [phone] Encounter Details Date Type Department Care Team (Late st Contact Info) Description 06/06/2024 Telephone Hematology [place] [address] Tali Barnard, RN Social History Tobacco Use Types Packs/Day Years Used Date Smoking Tobacco: Former Pipe Passive Smoke Exposure: Past Smokeless Tobacco: Never Comments:Smoke pipe for 10 y ears since 13 years old, Does still smoke pot but is slowing down. Passive Exposure Comments:Second hand smoke since 6817-3000 Alcohol Use Standard Drinks/Week Comments Yes 14 (1 standard drink = 0.6 oz pure alcohol) hardly any for the last month B1300 Health Literacy Answer Date Recor ded How often do you need to hav e someone help you when you read instructions, pamphlets, or other written material from your doctor or pharmacy? Never 05/04/2024 [facility] Utilities Answer Date Recorded In the [...] any time in the past 12 m [facility], were you homeless or living in a intermediate (including now)? No 05/04/2024 Sex and Gender Information Value Date Recorded Sex Assigned at Not on file Gender Identity Not on file Sexual Orientation Not on file documented as of this encounter Miscellaneous Notes * Telephone Encounter - Tali Barnard RN - 06/06/2024 8:18 AM EST Message received from Dr. Milian: Please follow-up on how he is doing (he had hives and redness in his arms, upper chest, never developed SOB or low BP). Based on symptoms, he might need Claritin. If his symptoms are causing a lot discomfort, I can send a prescription for short course of prednisone oral or renew the topical steroid. We ([facility], pharmacy) are currently working to rearrange infusion next week here since [facility] wont feel comfortable to provide the infusion there due to high risk of infusion reaction again. Please let him know that, we will call him once we find an infusion time. Call to patient: Left voicemail and sent message via [facility] to follow up. Dr. Milian notified that patient could not be reached. Call to patient on 06/09: Spoke with Henry who reported his infusion reaction symptoms had all resolved by the evening of the infusion, except for a few hives on his legs, but he applied some moisturizing cream and these resolved by the next morning. He denied any new symptoms/concerns. He is aware scheduling will watch for cancellations next week to reschedule the infusions he was not able to receive on 06/05 due to the infusion reaction. He was advised to call with any questions/concerns. He verbalized understanding and had no questions at this time. Update sent to provider. Message received from Dr. Milian: Thank you so much, Tali, for following on him. He was not picking up the phone last Sunday. [facility] reached out to him and he declined rescheduling this week, we are keeping an eye in case there is an open spot next week. Glad to hear he is doing better. documented in this encounter Plan of Treatment Upcoming Encounters Date Type Department Care Team (Late st Contact Info) Description 08/22/2024 9:00 AM EST Infusion Hematology Oncology at [address] [address] 08/26/2024 11:30 AM EST Telephone Hematology [place] [address] Aniya Saab, [place] [facility] [place] [address] 09/11/2024 8:30 AM EST Laboratory Appointment Lab at [facility] [place] [address] [place] [phone] 09/11/2024 9:30 AM EST Office Visit Hematology [place] [address] Albania Chahal MD [facility] HEMATOLOGY[place] [address] 09/11/2024 11:00 AM EST Appointment Hematology [place] [phone] 10/02/2024 7:45 AM EDT Laboratory Appointment Lab at [facility] [place] Oncology [address] [place] [phone] 10/02/2024 9:[address] [place] [address] Albania Chahal MD [facility] [place]EMATOLOGY/[place] [address] 10/02/2024 10:30 AM EDT Office Visit Hematology [place] [address] Albania Chahal MD [facility] HEMATOLOGY[place] [address] 10/02/2024 12:00 PM EDT Appointment Hematology [place] [address] documented as of this encounter Visit Diagnoses Not on filedocumented in this encounter Care Teams Supervisor Wool Shearing Relationship Specialty Start Date End Date America Caro MD [address] [place] [address] PCP - General Family Medicine 03/31/24 documented as of this encounter
--- OUTSIDE RECORDS SUMMARY | 2024-08-22 01:17 | XMS_ITS | Encounter Summary ---
Author Organization [facility] Address [facility] [place] [address] Care Team Providers Care Design Teacher Name Role Phone America Caro MD Primary Care Provider [phone] Encounter Details Date Type Department Care Team (Latest Contact Info) Description 05/15/2024 Travel Social History Tobacco Use Types Packs/Day Years Used Date Smoking Tobacco: Former Pipe Passive Smoke Exposure: Past Smokeless Tobacco: Never Comments:Smoke pipe for 10 y ears since 13 years old, Does still smoke pot but is slowing down. Passive Exposure Comments:Second hand smoke since 7428-2875 Alcohol Use Standard Drinks/Week Comments Yes 14 (1 standard drink = 0.6 oz pure alcohol) hardly any for the last month B1300 Health Literacy Answer Date Recor ded How often do you need to hav e someone help you when you read instructions, pamphlets, or other written material from your doctor or pharmacy? Never 05/04/2024 [facility] Utilities Answer Date Recorded In the past 12 months has [employer], gas, oil, or water [employer] threatened to shut off services in your [...] time in the past 12 m [facility], were you homeless or living in a [...] AM EST Infusion Hematology Oncology at [address] [address] 08/26/2024 11:30 AM EST Telephone [place]ematology [place] [phone] [facility] [place] [address] 09/11/2024 8:30 AM EST Laboratory Appointment Lab at [facility] [place]ology Oncology [address] [place] [phone] 09/11/2024 9:30 AM EST Office Visit Hematology [place] [phone] Albania Chahal MD [facility] [place] [address] 09/11/2024 11:00 AM EST Appointment Hematology [place] [phone] 10/02/2024 7:45 AM EDT Laboratory Appointment Lab at [facility] [place]ology Oncology [address] [place] [phone] 10/02/2024 9:[address] [place] [phone] Albania Chahal MD [facility] HEMATOLOGY[place] [address] 10/02/2024 10:30 AM EDT Office Visit Hematology [place] [phone] Albania Chahal MD [facility] HEMATOLOGY[place] [address] 10/02/2024 12:00 PM EDT Appointment Hematology and Oncology at [place] [phone] documented as of this encounter Visit Diagnoses Not on filedocumented in this encounter Care Teams Design Teacher Relationship Specialty Start Date End Date America Caro MD [address] [place] [address] PCP - General Family Medicine 03/31/24 documented as of this encounter
--- OUTSIDE RECORDS SUMMARY | 2024-08-22 01:17 | XMS_ITS | Encounter Summary ---
Author Organization [facility] [place] [address] Care Team Providers Care Drier Belt Conveyor Name Role Phone America Caro MD Primary Care Provider [phone] Reason for Visit * Treatment/Therapy Plan Authorization (Routine) - Closed Specialty Diagnoses / Procedures Referred By Contac t Referred To Contact Hematology and Oncology Diagnoses Non-small cell lung cancer, unspecified laterality Medication management Procedures TC PALONOSETRON HCL, 25MCG, INJ (ALOXI) TC APREPITANT, 1 MG, INJ TC PEMBROLIZUMAB, 1 MG, INJ TC PACLITAXEL PROTEIN-BOUND PARTICLES, 1MG, INJ TC PACLITAXEL PROTEIN-BOUND PARTICLES (FRENCH REGENT), 1 MG, INJ TC CARBOPLATIN, 50MG, INJ (PARAPLATIN) Albania Chahal MD [facility] DR HEMATOLOGY/[place] [address] Albania Chahal MD [facility] [address] HEMATOLOGY/[place] [address] Referral ID Status Reason Start Date Expiration Date Visits Re quested Visits Authorized [id number] Closed 05/06/2024 05/06/2025 99 100 Encounter Details Date Type Department Care Team (Latest Contact Info) Description 05/15/2024 7:47 AM EDT - 05/15/2024 11:59 PM EDT Hospital Encounter Hematology [place] [address] Non-small cell lung cancer, unspecified laterality; Medication management Discharge Disposition: Home Social History Tobacco Use Types Packs/Day Years Used Date Smoking Tobacco: Former Pipe Passive Smoke Exposure: Past Smokeless Tobacco: Never Comments:Smoke pipe for 10 y ears since 13 years old, Does still smoke pot but is slowing down. Passive Exposure Comments:Second hand smoke since 1721-0159 Alcohol Use Standard Drinks/Week Comments Yes 14 [...] every 4 hours as needed for Pain. prochlorperazine (Compazine) 10 mg tablet Take 1 tablet by mouth every 6 hours as needed for Nausea. 15 tablet 05/15/2024 07/18/2024 ibuprofen (Advil) 200 mg tablet Take 200 mg by mouth every 6 hours as needed for Pain. 06/26/2024 documented as of this encounter Progress Notes [...] 05/15/2024 11:59 PM EDTEncounter addended by: Shannan Tellez RN on: 05/16/2024 2:31 PM Actions taken: MAR administration edited documented in this encounter Plan of Treatment Upcoming Encounters Date Type Department Care Team (Late st Contact Info) Description 08/22/2024 9:00 AM EST Infusion Hematology Oncology at [address] [phone] 08/26/2024 11:30 AM EST Telephone Hematology [place] [address] Aniya Saab, [facility] [place] [address] 09/11/2024 8:30 AM EST Laboratory Appointment Lab at [facility] Hematology Oncology [address] [place] [phone] 09/11/2024 9:30 AM EST Office Visit Hematology [place] [phone] Albania Chahal MD [facility] HEMATOLOGY/[place] [address] 09/11/2024 11:00 AM EST Appointment Hematology [place] [phone] 10/02/2024 7:45 AM EDT Laboratory Appointment Lab at [facility] Hematology Oncology [address] [place] [phone] 10/02/2024 9:[address] [place] [phone] Albania Chahal MD [facility] HEMATOLOGY/[place] [address] 10/02/2024 10:30 AM EDT Office Visit Hematology [place] [phone] Albania Chahal MD [facility] HEMATOLOGY/[place] [address] 10/02/2024 12:00 PM EDT Appointment Hematology [place] [phone] documented as of this encounter Results * T4, free (05/15/2024 8:03 AM EDT) [facility] Free T4 1.08 0.93 - 1.70 ng/dL 05/15/2024 8:52 AM EDT [facility] Blood VENOUS BLOOD SPECIMEN / Unknown Venipuncture / Unknown 05/15/2024 8:03 AM EDT 05/15/2024 8:03 AM EDT Albania Dutton MD CHEMISTRY ORDERA BLES Performing Organization Address City/[facility]/ZIP Co de Phone Number [facility] [place] [address] * (ABNORMAL) TSH (05/15/2024 8:03 AM EDT) Thyroid Stimulating Hormone 6.83(H) 0.27 - 4.20 mcIU/mL 05/15/2024 8:52 AM EDT [facility] Blood VENOUS BLOOD SPECIMEN / Unknown Venipuncture / Unknown 05/15/2024 8:03 AM EDT 05/15/2024 8:03 AM EDT Narrative Authorizing Provider Result Levi Dutton MD CHEMISTRY ORDERA BLES Performing Organization Address [facility] Co de Phone Number [facility] [place] [address] * (ABNORMAL) Lactate Dehydrogenase (05/15/2024 8:03 AM EDT) Lactate Dehydrogenase 270(H) 110 - 220 unit/L 05/15/2024 8:52 AM EDT [facility] Blood VENOUS BLOOD SPECIMEN / Unknown Venipuncture / Unknown 05/15/2024 8:03 AM EDT 05/15/2024 8:03 AM EDT Narrative Authorizing Provider Result Levi Dutton MD CHEMISTRY ORDERA BLES Performing Organization Address [facility]/ZIP Co de Phone Number [facility] [place] [address] * (ABNORMAL) Comprehensive metabolic panel Non-fasting (05/15/2024 8:03 AM EDT) Glucose 84 65 - 199 mg/dL 05/15/2024 8:52 AM EDT [facility] Comment:Glucose Concentratio n >=200 mg/dL plus symptoms is consistent with Diabetes Mellitus. Blood Urea Nitrogen 17 10 - 20 mg/dL 05/15/2024 8:52 AM EDT [facility] Creatinine 0.83 0.80 - 1.50 mg/dL 05/15/2024 8:[address] [facility] Sodium 137 135 - 145 mMol/L 05/15/2024 8:[address] [facility] Potassium 4.6 3.5 - 5.0 mMol/L 05/15/2024 8:[address] [facility] Chloride 100 98 - 107 mMol/L 05/15/2024 8:[address] [facility] Carbon Dioxide 30 22 - 31 mMol/L 05/15/2024 8:[address] [facility] Anion Gap 7 5 - 15 mMol/L 05/15/2024 8:[address] [facility] Calcium 9.9 8.5 - 10.5 mg/dL 05/15/2024 8:[address] [facility] Protein, Total 7.9 6.1 - 8.0 g/dL 05/15/2024 8:[address] [facility] Albumin 3.6 3.2 - 5.2 g/dL 05/15/2024 8:[address] [facility] Aspartate Aminotransferase 41(H) <=39 unit/L 05/15/2024 8:[address] [facility] Alanine Aminotransferase 54 0 - 55 unit/L 05/15/2024 8:[address] [facility] Alkaline Phosphatase 225(H) 40 - 130 unit/L 05/15/2024 8:[address] [facility] Bilirubin, Total 0.3 <=1.3 mg/dL 05/15/2024 8:[address] [facility] Est Glomerular Filtration Rate - Male 94 mL/min/1. 73 m?? 05/15/2024 8:[address] [facility] Comment: This patient's estimated GFR [...] Foundation Fasting Status No 05/15/2024 8:[address] [facility] Blood VENOUS BLOOD SPECIMEN / Unknown Venipuncture / Unknown 05/15/2024 8:03 AM EDT 05/15/2024 8:03 AM EDT Albania Dutton MD CHEMISTRY ORDERA BLES [facility] [place] [address] * (ABNORMAL) CBC (with Diff) (05/15/2024 8:03 AM EDT) White Blood Cell 7.22 4.00 - 9.50 x10(3)/mc L 05/15/2024 8:[address] [facility] Red Blood Cell 4.73 4.58 - 5.54 x10(6)/mc L 05/15/2024 8:[address] [facility] Hemoglobin 12.0(L) 13.7 - 16.5 g/dL 05/15/2024 8:[address] [facility] Hematocrit 38.4(L) 40.5 - 48.5 % 05/15/2024 8:[address] [facility] Mean Cell Volume 81.2(L) 82.9 - 93.1 fL 05/15/2024 8:[address] [facility] Mean Cell Hemoglobin 25.4(L) 27.5 - 32.1 pg 05/15/2024 8:[address] [facility] Mean Cell Hemoglobin Concentration 31.3(L) 32.0 - 35.7 g/dL 05/15/2024 8:[address] [facility] Platelet 628(H) 145 - 357 x10(3)/mc L 05/15/2024 8:[address] [facility] Mean Platelet Volume 8.5 7.6 - 12.9 fL 05/15/2024 8:[address] [facility] RDW Standard Deviation 47.0(H) 36.0 - 45.0 fL 05/15/2024 8:[address] [facility] RDW coefficient of variation 15.9(H) 11.4 - 13.8 % 05/15/2024 8:[address] [facility] NRBC% auto 0.0 % 05/15/2024 8:[address] [facility] NRBC Absolute <0.01 <0.01 x10(3)/mc L 05/15/2024 8:[address] [facility] Neutrophil % 75.6 % 05/15/2024 8:[address] [facility] Neutrophil Absolute (ANC) - Automated 5.46 1.70 - 6.10 x10(3)/mc L 05/15/2024 8:[address] [facility] Lymph % 15.4 % 05/15/2024 8:[address] [facility] Lymph Absolute 1.11 0.90 - 3.20 x10(3)/mc L 05/15/2024 8:[address] [facility] Monocyte % 7.6 % 05/15/2024 8:[address] [facility] Monocyte Absolute 0.55 0.30 - 0.90 x10(3)/mc L 05/15/2024 8:[address] [facility] Eos % 0.7 % 05/15/2024 8:[address] [facility] Eos Absolute 0.05 0.00 - 0.40 x10(3)/mc L 05/15/2024 8:[address] [facility] Basophil % 0.3 % 05/15/2024 8:[address] [facility] Baso Absolute <0.04 0.00 - 0.10 x10(3)/mc L 05/15/2024 8:19 AM EDT [facility] Immature Gran % 0.4 % 8:19 AM EDT [facility] Immature Gran Absolute <0.04 0.00 - 0.04 x10(3)/mc L 05/15/2024 8:19 AM EDT [facility] Blood VENOUS BLOOD SPECIMEN / Unknown Venipuncture / Unknown 05/15/2024 8:03 AM EDT 05/15/2024 8:03 AM EDT Albania Dutton MD HEMATOLOGY ORDER [facility] [place] [address] documented in this encounter Visit Diagnoses Diagnosis [...] 2 minutes is a recommendation from the retail link analyst. Administer prior to chemotherapy., Routine Given 05/15/2024 [...] mL/hr documented in this encounter Care Teams Drier Belt Conveyor Relationship Specialty Start Date End Date America Caro MD [address] [place] [address] PCP - General Family Medicine 03/31/24 documented as of this encounter
--- OUTSIDE RECORDS SUMMARY | 2024-08-22 01:17 | XMS_ITS | Encounter Summary ---
Author Organization [facility] [place] [address] Care Team Providers Care Milled Rice Broker Name Role Phone America Caro MD Primary Care Provider [phone] Encounter Details Date Type Department Care Team (Late st Contact Info) Description 05/19/2024 Telephone Hematology [place] [phone] Tia Becerra, RN Social History Tobacco Use Types Packs/Day Years Used Date Smoking Tobacco: Former Pipe Passive Smoke Exposure: Past Smokeless Tobacco: Never Comments:Smoke pipe for 10 y ears since 13 years old, Does still smoke pot but is slowing down. Passive Exposure Comments:Second hand smoke since 3111-0765 Alcohol Use Standard Drinks/Week Comments Yes 14 (1 standard drink = 0.6 oz pure alcohol) hardly any for the last month B1300 Health Literacy Answer Date Recor ded How often do you need to hav e someone help you when you read instructions, pamphlets, or other written material from your doctor or pharmacy? Never 05/04/2024 [facility] Utilities Answer Date Recorded In [...] in the past 12 m [facility], were you homeless or living in a [...] renewals Other issues : [facility] ? Squamous cell cancer vs thymic cancer & different recommendations based in. Pt will send a copy of the report via [employer] & let him know I would get this to Dr. Milian. Education provided: Plan: Reinforced to patient/care-disabilities caregiver to call facility 05/02 with any new/worsening signs and symptoms orconcerns or questions. Phone number provided. Pt verbalized understanding and is in agreement with plan. documented in this encounter Plan of Treatment Upcoming Encounters Date Type Department Care Team (Late st Contact Info) Description 08/22/2024 9:00 AM EST Infusion Hematology Oncology at [address] [phone] 08/26/2024 11:30 AM EST Telephone Hematology [place] [phone] [facility] [place] [address] 09/11/2024 8:30 AM EST Laboratory Appointment Lab at [facility] Hematology Oncology [address] [place] [phone] 09/11/2024 9:30 AM EST Office Visit Hematology [place] [phone] Albania Chahal MD [facility] HEMATOLOGY/[place], [place] [phone] 09/11/2024 11:00 AM EST Appointment Hematology and Oncology at [place] [phone] 10/02/2024 7:45 AM EDT Laboratory Appointment Lab at [facility] Hematology Oncology [address] [place] [phone] 10/02/2024 9:[address] Scan at [place] [phone] Albania Chahal MD [facility] HEMATOLOGY/[place] [address] 10/02/2024 10:30 AM EDT Office Visit Hematology and Oncology at [place] [phone] Albania Chahal MD [facility] HEMATOLOGY/[place] [address] 10/02/2024 12:00 PM EDT Appointment Hematology and Oncology at [place] [phone] documented as of this encounter Visit Diagnoses Not on filedocumented in this encounter Care Teams Milled Rice Broker Relationship Specialty Start Date End Date America Caro MD [address] [place] [address] PCP - General Family Medicine 03/31/24 documented as of this encounter
--- OUTSIDE RECORDS SUMMARY | 2024-08-22 01:17 | XMS_ITS | Encounter Summary ---
Author Organization [facility] Address [facility] [place] [address] Care Team Providers Care Product Advisor Name Role Phone America Caro MD Primary Care Provider [phone] Encounter Details Date Type Department Care Team (Latest Contact Info) Description 06/05/2024 Unscheduled Encounter Hematology [place] [address] Albania Chahal MD [facility] HEMATOLOGY/[place] [address] Thymic carcinoma Social History Tobacco Use Types Packs/Day Years Used Date Smoking Tobacco: Former Pipe Passive Smoke Exposure: Past Smokeless Tobacco: Never Comments:Smoke pipe for 10 y ears since 13 years old, Does still smoke pot but is slowing down. Passive Exposure Comments:Second hand smoke since 6501-5267 Alcohol Use Standard Drinks/Week Comments Yes 14 (1 standard drink = 0.6 oz pure alcohol) hardly any for the last month B1300 Health Literacy Answer Date Recor ded How often do you need to hav e someone help you when you read instructions, pamphlets, or other written material from your doctor or pharmacy? Never 05/04/2024 [facility] Utilities Answer Date Recorded In the [...] Progress Notes * Albania Chahal MD - 06/05/2024 3:29 PM EST Mr. Javier developed an infusion reaction after 98 cc of ramicirumab infusion. He was immediately treated with Benadryl 25 mg IV, Pepcid IV, and additional 10 mg of dexamethasone. He experienced an infusion reaction characterized by hives on his arms, hands, upper chest, and lower extremities (see Media for photos), along with itching and swelling in his left arm. His blood pressure remained stable, and he did not experience shortness of breath or tongue swelling. His lungs were clear to auscultation, with no wheezing present. He responded to all questions in full sentences. After treatment, his symptoms began to improve, with better control of the itching and redness. He completed IV hydration, and due to the prolonged resolution of the infusion reaction, we decided to hold cancer treatment and reschedule for next week. He was discharged home and his nephew drove him home. We contacted the infusion suite at [facility], but given the high risk of further infusion reactions, they do not feel comfortable administering Taxol there. Our team is working on arranging the infusion at our facility next week. Our nurse attempted to follow up with him today regarding his symptoms, but we were unable to reach him. We will continue to monitor his condition. PLAN: He was advised to take Claritin for allergy. Plan to give carboplatin and paclitaxel next week at [facility]. Our schedulers are working on it. I am reaching out to pharmacy to clarify if there is a desensitivation protocol for ramicirumab or pre-treamtent to avoid infusion reactions. This is a medication that is small in his cancer treatment demonstrating overall survival benefits. Albania Milian M.D. Medical Oncology Pager # [phone] 06/06/24, 4:35 [place] [address] documented in this encounter Plan of Treatment Upcoming Encounters Date Type Department Care Team (Late st Contact Info) Description 08/22/2024 9:00 AM EST Infusion Hematology Oncology at [address] [phone] 08/26/2024 11:30 AM EST Telephone Hematology [place] [phone] Aniya Saab, [facility] [place] [address] 09/11/2024 8:30 AM EST Laboratory Appointment Lab at [facility] Hematology Oncology [address] [place] [phone] 09/11/2024 9:30 AM EST Office Visit Hematology [place] [phone] Albania Chahal MD [facility] HEMATOLOGY/[place] [address] 09/11/2024 11:00 AM EST Appointment Hematology [place] [phone] 10/02/2024 7:45 AM EDT Laboratory Appointment Lab at [facility] Hematology Oncology [address] [place] [phone] 10/02/2024 9:[address] Scan at [place] [phone] Albnaia Chahal MD [facility] HEMATOLOGY/[place] [address] 10/02/2024 10:30 AM EDT Office Visit Hematology [place] [phone] Albania Chahal MD [facility] HEMATOLOGY/[place] [address] 10/02/2024 12:00 PM EDT Appointment Hematology and Oncology at [place] [address] documented as of this encounter Visit Diagnoses Diagnosis Thymic carcinoma Malignant neoplasm of thymus documented in this encounter Care Teams Product Advisor Relationship Specialty Start Date End Date America Caro MD [address] [place] [address] PCP - General Family Medicine 03/31/24 documented as of this encounter
--- OUTSIDE RECORDS SUMMARY | 2024-08-22 01:17 | XMS_ITS | Encounter Summary ---
[place] [address] Care Team Providers Care Pantograph Watcher Name Role Phone America Caro MD Primary Care Provider [phone] Encounter Details Date Type Department Care Team (Latest Contact Info) Description 06/05/2024 9:15 AM EST Laboratory Appointment [place] [facility] [place] [address] [place] [phone] Thymic carcinoma; Non-small cell lung cancer, unspecified laterality Social History Tobacco Use Types Packs/Day Years Used Date Smoking Tobacco: Former Pipe Passive Smoke Exposure: Past Smokeless Tobacco: Never Comments:Smoke pipe for 10 y ears since 13 years old, Does still smoke pot but is slowing down. Passive Exposure Comments:Second hand smoke since 8160-3503 Alcohol Use Standard Drinks/Week Comments Yes 14 (1 standard drink = 0.6 oz pure alcohol) hardly any for the last month B1300 Health Literacy Answer Date Recor ded How often do you need to hav e someone help you when you read instructions, pamphlets, or other written material from your doctor or pharmacy? Never 05/04/2024 [facility] Utilities Answer Date Recorded In [...] 9:00 AM EST Infusion Hematology Oncology at [address] [phone] 08/26/2024 11:30 AM EST Telephone Hematology [place] [phone] [facility] [place] [address] 09/11/2024 8:30 AM EST Laboratory Appointment Lab [place] [facility] [place] [address] [place] [phone] 09/11/2024 9:30 AM EST Office Visit Hematology [place] [phone] Albania Chahal MD [facility] HEMATOLOGY/[place] [address] 09/11/2024 11:00 AM EST Appointment Hematology [place] [phone] 10/02/2024 7:45 AM EDT Laboratory Appointment Lab [place] [facility] [place] [address] [place] [phone] 10/02/2024 9:[address] [place] [phone] Albania Chahal MD [facility] HEMATOLOGY/[place] [address] 10/02/2024 10:30 AM EDT Office Visit Hematology [place] [phone] Albania Chahal MD [facility] [place]EMATOLOG[facility] [address] 10/02/2024 12:00 PM EDT Appointment Hematology [place] [phone] Pending Results Name Type Priority Associated Diagnoses Date /Time Miscellaneous Lab request Lab Routine Non-small cell lung cancer, unspecified laterality 06/05/2024 9:15 AM EST documented as of this encounter Procedures Procedure Name Priority Date/Time Associated Diagnosis Comments URINALYSIS DIPSTICK STAT 06/05/2024 1 0:10 AM EST Thymic carcinoma CBC (WITH DIFF) STAT 06/05/2024 9:15 AM EST Thymic carcinoma MAGNESIUM STAT 06/05/2024 9:15 AM EST Thymic carcinoma LACTATE DEHYDROGENASE STAT 06/05/2024 9:15 AM EST Thymic carcinoma COMPREHENSIVE METABOLIC PANEL STAT 06/05/2024 9:15 AM EST Thymic carcinoma documented in this encounter Results * Urinalysis Dipstick (06/05/2024 10:10 AM [facility]) Glucose, Urine Dipstick Negative Negative 06/05/2024 10:25 AM [facility] Protein, Urine Dipstick Negative Negative 06/05/2024 10:25 AM [facility] Bilirubin, Urine Dipstick Negative Negative 06/05/2024 10:25 AM [facility] Comment:Clinical correlation required for positive Urine Bilirubin results as false positive may occur with some drugs and drug related products. If a false positive is suspected a serum total bilirubin should be considered if clinically indicated. Urobilinogen, Urine Dipstick Normal Normal, 0.2 mg/dL, 1.0 mg/dL 06/05/2024 10:25 AM [facility] pH, Urine (dipstick) 7.0 5.0 - 8.0 06/05/2024 10:25 AM [facility] Blood, Urine Dipstick Negative Negative 06/05/2024 10:25 AM [facility] Ketone, Urine Dipstick Negative Negative 06/05/2024 10:25 AM [facility] Nitrite, Urine Dipstick Negative Negative 06/05/2024 10:25 AM [facility] Leukocytes, Urine Dipstick Negative Negative 06/05/2024 10:25 AM [facility] Specific [place] Urine Automated 1.008 1.005 - 1.030 06/05/2024 10:25 AM [facility] Appearance, Urine Dipstick Clear Clear 06/05/2024 10:25 AM [facility] Color, Urine Dipstick Yellow Yellow, Dark Yellow 06/05/2024 10:25 AM [facility] CULTURE ADDED? 06/05/2024 10:25 AM [facility] Urine URINE SPECIMEN OBTAINED BY CLEAN CATCH PROCEDURE / Unknown 06/05/2024 10:10 AM EST 06/05/2024 10:10 AM EST Albania Schumacher Maicol Dutton MD URINE ORDERABLES [facility] [place] [address] * (ABNORMAL) CBC (with Diff) (06/05/2024 9:15 AM EST) White Blood Cell 4.93 4.00 - 9.50 x10(3)/mc L 06/05/2024 10:22 AM [facility] Red Blood Cell 4.74 4.58 - 5.54 x10(6)/mc L 06/05/2024 10:22 AM [facility] Hemoglobin 11.9(L) 13.7 - 16.5 g/dL 06/05/2024 10:22 AM [facility] Hematocrit 38.2(L) 40.5 - 48.5 % 06/05/2024 10:22 AM [facility] Mean Cell Volume 80.6(L) 82.9 - 93.1 fL 06/05/2024 10:22 AM [facility] Mean Cell Hemoglobin 25.1(L) 27.5 - 32.1 pg 06/05/2024 10:22 AM [facility] Mean Cell Hemoglobin Concentration 31.2(L) 32.0 - 35.7 g/dL 06/05/2024 10:22 AM [facility] Platelet 493(H) 145 - 357 x10(3)/mc L 06/05/2024 10:22 AM [facility] Mean Platelet Volume 8.6 7.6 - 12.9 fL 06/05/2024 10:22 AM [facility] RDW Standard Deviation 48.6(H) 36.0 - 45.0 fL 06/05/2024 10:22 AM [facility] RDW coefficient of variation 17.1(H) 11.4 - 13.8 % 06/05/2024 10:22 AM [facility] NRBC% auto 0.0 % 06/05/2024 10:22 AM [facility] NRBC Absolute <0.01 <0.01 x10(3)/mc L 06/05/2024 10:22 AM [facility] Neutrophil % 63.7 % 06/05/2024 10:22 AM [facility] Neutrophil Absolute (ANC) - Automated 3.14 1.70 - 6.10 x10(3)/mc L 06/05/2024 10:22 AM [facility] Lymph % 28.6 % 06/05/2024 10:22 AM [facility] Lymph Absolute 1.41 0.90 - 3.20 x10(3)/mc L 06/05/2024 10:22 AM [facility] Monocyte % 4.1 % 06/05/2024 10:22 AM [facility] Monocyte Absolute 0.20(L) 0.30 - 0.90 x10(3)/mc L 06/05/2024 10:22 AM [facility] Eos % 0.8 % 06/05/2024 10:22 AM [facility] Eos Absolute 0.04 0.00 - 0.40 x10(3)/mc L 06/05/2024 10:22 AM [facility] Basophil % 1.2 % 06/05/2024 10:22 AM [facility] Baso Absolute 0.06 0.00 - 0.10 x10(3)/mc L 06/05/2024 10:22 AM [facility] Immature Gran % 1.6 % 10:22 AM [facility] Immature Gran Absolute 0.08(H) 0.00 - 0.04 x10(3)/mc L 06/05/2024 10:22 AM [facility] Blood VENOUS BLOOD SPECIMEN / Unknown Venipuncture / Unknown 06/05/2024 9:15 AM EST 06/05/2024 9:15 AM EST Albania Schumacher Maicol Dutton MD HEMATOLOGY ORDER [facility] [place] [address] * (ABNORMAL) Comprehensive metabolic panel Non-fasting (06/05/2024 9:15 AM EST) Glucose 91 65 - 199 mg/dL 06/05/2024 10:10 AM [facility] Comment:Glucose Concentratio n >=200 mg/dL plus symptoms is consistent with Diabetes Mellitus. Blood Urea Nitrogen 22(H) 10 - 20 mg/dL 06/05/2024 10:10 AM [facility] Creatinine 0.76(L) 0.80 - 1.50 mg/dL 06/05/2024 10:10 AM [facility] Sodium 136 135 - 145 mMol/L 06/05/2024 10:10 AM [facility] Potassium 4.4 3.5 - 5.0 mMol/L 06/05/2024 10:10 AM [facility] Chloride 99 98 - 107 mMol/L 06/05/2024 10:10 AM [facility] Carbon Dioxide 29 22 - 31 mMol/L 06/05/2024 10:10 AM [facility] Anion Gap 8 5 - 15 mMol/L 06/05/2024 10:10 AM [facility] Calcium 9.8 8.5 - 10.5 mg/dL 06/05/2024 10:10 AM [facility] Protein, Total 8.1(H) 6.1 - 8.0 g/dL 06/05/2024 10:10 AM [facility] Albumin 4.0 3.2 - 5.2 g/dL 06/05/2024 10:10 AM [facility] Aspartate Aminotransferase 32 <=39 unit/L 06/05/2024 10:10 AM [facility] Alanine Aminotransferase 39 0 - 55 unit/L 06/05/2024 10:10 AM EST [facility] Alkaline Phosphatase 240(H) 40 - 130 unit/L 06/05/2024 10:10 AM [facility] Bilirubin, Total 0.2 <=1.3 mg/dL 06/05/2024 10:10 AM [facility] Est Glomerular Filtration Rate - Male 97 mL/min/1. 73 m?? 06/05/2024 10:10 AM EST [facility] Comment: This patient's estimated [...] Calculator [employer] Fasting Status No 06/05/2024 10:10 AM EST [facility] Blood VENOUS BLOOD SPECIMEN / Unknown Venipuncture / Unknown 06/05/2024 9:15 AM EST 06/05/2024 9:15 AM EST Albania Dutton MD CHEMISTRY ORDERA BLES [facility] [place] [address] * Lactate Dehydrogenase (06/05/2024 9:15 AM EST) Lactate Dehydrogenase 158 110 - 220 unit/L 06/05/2024 10:10 AM [facility] Blood VENOUS BLOOD SPECIMEN / Unknown Venipuncture / Unknown 06/05/2024 9:15 AM EST 06/05/2024 9:15 AM EST Albania Dutton MD CHEMISTRY ORDERA BLES [facility] [place] [address] * Magnesium (06/05/2024 9:15 AM EST) Magnesium 0.90 0.69 - 1.07 mMol/L 06/05/2024 10:10 AM EST [facility] Blood VENOUS BLOOD SPECIMEN / Unknown Venipuncture / Unknown 06/05/2024 9:15 AM EST 06/05/2024 9:15 AM EST Albania Dutton MD [place] [address] documented in this encounter Visit Diagnoses Diagnosis Thymic carcinoma Malignant neoplasm of thymus Non-small cell lung cancer, unspecified laterality documented in this encounter Care Teams Pantograph Watcher Relationship Specialty Start Date End Date America Caro MD [address] [place] [phone] PCP - General Family Medicine 03/31/24 documented as of this encounter
--- OUTSIDE RECORDS SUMMARY | 2024-08-22 01:17 | XMS_ITS | Encounter Summary ---
Author Organization [facility] [place] [address] Care Team Providers Care Hospice Art Therapist Name Role Phone America Caro MD Primary Care Provider [phone] Reason for Referral * Diagnostic Test (Routine) - Authorized Specialty Diagnoses / Procedures Referred By Contac t Referred To Contact Radiology Diagnoses Thymic carcinoma Procedures CT Chest Abdomen Pelvis w Contrast (Generic) Albania Chahal MD [facility] DR HEMATOLOGY/[place] [address] Referral ID Status Reason Start Date Expiration Date Visits Requested Visits Authorized [id number] Authorized Specialty Service Requested 4 12/01/2025 1 1 Reason for Visit * Reason Comments Follow-up Encounter Details Date Type Department Care Team (Late st Contact Info) Description 06/05/2024 10:30 AM EST Office Visit Hematology [place] [address] Albania Chahal MD [facility] HEMATOLOGY/[place] [address] Thymic carcinoma; Medication management Social History Tobacco Use Types Packs/Day Years Used Date Smoking Tobacco: Former Pipe Passive Smoke Exposure: Past Smokeless Tobacco: Never Comments:Smoke pipe for 10 y ears since 13 years old, Does still smoke pot but is slowing down. Passive Exposure Comments:Second hand smoke since 1511-4342 Alcohol Use Standard Drinks/Week Comments Yes 14 (1 standard drink = 0.6 oz pure alcohol) hardly any for the last month B1300 Health Literacy Answer Date Recor ded How often do you need to hav e someone help you when you read instructions, pamphlets, or other written material from your doctor or pharmacy? Never 05/04/2024 [facility] Utilities Answer Date Recorded In the past [...] Sign Reading Time Taken Comments Blood Pressure 123/82 06/05/2024 10:18 AM EST Pulse 60 06/05/2024 10:18 AM EST Temperature 36 ??C (96.8 ??F) 06/05/2024 10:18 AM EST Respiratory Rate 17 06/05/2024 10:18 AM EST Oxygen Saturation 99% 06/05/2024 10:18 AM EST Inhaled Oxygen Concentration - - Weight 62.8 kg (138 lb 7.2 oz) 06/05/2024 10:18 AM EST Height 161.6 cm (5' 3.62) 06/05/2024 10:[address] Body Mass Index 24.05 06/05/2024 10:18 AM EST documented in this encounter Progress Notes * Albania Chahal MD - 06/05/2024 10:30 AM EST Images from the original note [...] TPS 10% Molecular panel pending (ordered on 05/06/2024) Liquid biopsy (05/06/2024) [id number], [...] C1D8 Hold nab-paclitaxel due to generalized rash 05/29/2024 C1D15 nab-paclitaxel infusion 06/05/2024 C1D1 Carboplatin, paclitaxel and ramucirumab + denosumab Interval history: Mr. Javier completed his first infusion treatment. During his second week of treatment, he developeda maculopapular rash in both axillary areas and on his upper chest, accompanied by itching. He was treated with a topical steroid and antihistamines, which effectively controlled his symptoms. His infusion on day 8 was postponed, but he was cleared to proceed with the infusion on day 15. Rash has improved with the use of topical steroids. It was previously present on the lower extremities and ankles as well. His energy levels have improved, allowing for better performance of daily activities. His left-side chest pain is now better controlled, he has not taken any pain medication since a week ago. He remains in colchicine. There is no pain with deep breathing, or breathing changes. He deniesheadaches, tingling or numbness. His bowel movements are normal, with no diarrhea or constipation. Appetite has increased and is much improved. His weight is 138 pounds, he increased 6 pounds since our last visit. He denies swelling of the legs. He denies fever, chills. REVIEW OF SYSTEMS: As per HPI. A 12 point [id number] was obtained. Symptoms as explained in the HPI. PAST MEDICAL HISTORY: Pericarditis diagnosed in March 2024 treated with colchicine, ibuprofen and Tylenol Carpal tunnel syndrome PAST SURGICAL HISTORY: Tonsillectomy and appendectomy at early age Cholecystectomy in 2023 MEDICATIONS: Current Outpatient Medications on File Prior to Visit Medication Sig Dispense Refill prochlorperazine (Compazine) 10 mg tablet Take 1 [...] topically 2 times daily. 30 g 0 ibuprofen (Advil) 200 mg tablet Take 200 [...] . 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 Alcohol: He drank heavily for a long [...] 24 hrs: Temp Pulse Resp BP SpO2 06/05/24 1018 36 ??C (96.8 ??F) 60 17 123/82 99 % GENERAL: Henry Javier appears well [...] LABORATORY STUDIES: CBC, anemia with Hb at 11.9, and platelet count at 493K, normal WBC CMP SHAWNA increased at 240 LDH stable at 158 TSH high at 6.83, and free T4 normal at 1.08 (05/15/2024) RADIOLOGY STUDIES REVIEWED: CT scan of the [...] TPS 10% Molecular panel pending (ordered on 05/06/2024) Liquid biopsy (05/06/2024) [id number], [...] He received a remote second opinion at [facility], where, based on his radiographic [...] was started on carboplatin, nab-paclitaxel, and pembrolizumab. Given the updated pathology results, the recommended treatment plan is to continue carboplatin, switch nab-paclitaxel to paclitaxel, discontinue pembrolizumab (due to insufficient evidence for its use in this setting), and consider initiating ramucirumab. Pembrolizumab is usually preferred for second lines. The prospective deputy sheriff/investigator-initiated phase II RELEVENT trial was the first to show important activity of ramucirumab added to carboplatin and paclitaxel in previously untreated advanced TC. The study met its primary endpoint with [...] 31.9 months-not estimated), respectively. [[place] Oncol. 2023;35(9):817-826.] I reviewed side effects of ramucirumab today, including increase of risk of gastrointestinal hemorrhage, gastrointestinal perforations, impaired wound healing, arterial thromboembolic events such as DVT and PE, hypertension, infusion related reactions, worsening of pre-existing hepatic impairment, p osterior reversible encephalopathy syndrome, proteinuria including nephrotic syndrome, thyroid dysfunction. Overall, Mr. Javier has a good performance status (ECOG of 1), he did well with his first cycle, [...] normal EF of 60%. Second opinion at [facility] advised todiscuss about pericardiocentesis. Cardiology on board. Next appointment in 06/17. His last CT scan showed improvement of pericardial fluid. Bone mets (sacrum, ribs) We will start denosumab every 3 weeks in this cycle. Advised to start calcium and vitamin D. He hada dental cleaning in April 2024. There are not over contraindication for this. I reviewed side effects of this medication including osteonecrosis of the jaw. He agrees with the plan. RECOMMENDATIONS: He is okay to proceed with C1D1 of carboplatin, paclitaxel, and ramicurumab every 3 weeks. Plan to complete 4-6 cycles upon clinical assessment, followed by ramucirumab maintenance until disease progression or unacceptable toxicity. Plan to obtain a staging imaging on 07/14 at [facility]. Bone metastasis: Plan to start denosumab 120 mg every 3 weeks. Advised to start calcium and vitaminD. There is no need for a therapeutic thoracentesis at this time, as his breathing is stable during this visit. Continue treatment for pericarditis as directed by the cycle consultant. Next appointment on 06/17/2024.There is not overt indication of pericardiocentesis to this point. Next appointments: 06/26 C2D1 Labs, visit with me, infusion 07/[address] [facility] 07/17 C3D1 Labs, visit with me, infusion 08/07 C4D1 Labs, visit with me, infusion I spent 30 minutes in the total care of this patient including review of records and imaging, [id number] consultation and counseling, interpretation of studies, coordination of care and documentation. Albania Milian M.D. Thoracic Oncology Pager # [phone] 06/05/24, 11:59 AM [facility] documented in this encounter Plan of Treatment Upcoming Encounters Date Type Department Care Team (Late st Contact Info) Description 08/22/2024 9:00 AM EST Infusion Hematology Oncology at [address] [phone] 08/26/2024 11:30 AM EST Telephone [place]ematology [place] [address] Aniya Saab, [facility] [place] [address] 09/11/2024 8:30 AM EST Laboratory Appointment [place] [facility] [place] [address] [phone] 09/11/2024 9:30 AM EST Office Visit Hematology [place] [address] Albania Chahal MD [facility] HEMATOLOGY/[place] [address] 09/11/2024 11:00 AM EST Appointment Hematology [place] [address] 10/02/2024 7:45 AM EDT Laboratory Appointment Lab [place] [facility] [place] [address] [place] [phone] 10/02/2024 9:[address] [place] [place] [address] Albania Chahal MD [facility] HEMATOLOGY/[place] [address] 10/02/2024 10:30 AM EDT Office Visit [place]ematology [place] [address] Albania Chahal MD [facility] HEMATOLOGY/[place] [address] 10/02/2024 12:00 PM EDT Appointment [place]ematology [place] [address] Scheduled Orders Name Type Priority Associated Diagnoses Orde r Schedule CT Chest Abdomen Pelvis w Contrast (Generic) Imaging Routine Thymic carcinoma Expected: 07/14/2024, Expires: 01/13/2025 TSH Lab Routine Thymic carcinoma Medication management Ordered: 06/05/2024 T4, free Lab Routine Thymic carcinoma Medication management Ordered: 06/05/2024 documented as of this encounter Visit Diagnoses Diagnosis Thymic carcinoma Malignant neoplasm of thymus Medication management Encounter for long-term (current) use of other medications documented in this encounter Care Teams Hospice Art Therapist Relationship Specialty Start Date End Date America Caro MD [address] [place] [id number] PCP - General Family Medicine 03/31/24 documented as of this encounter
--- OUTSIDE RECORDS SUMMARY | 2024-08-22 01:17 | XMS_ITS | Encounter Summary ---
[place] [address] Care Team Providers Care Sales Account Coordinator Name Role Phone America Caro MD Primary Care Provider [phone] Encounter Details Date Type Department Care Team (Late st Contact Info) Description 05/30/2024 External Results Hematology [place] [phone] Sharon Roman, RN Social History Tobacco Use Types Packs/Day Years Used Date Smoking Tobacco: Former Pipe Passive Smoke Exposure: Past Smokeless Tobacco: Never Comments:Smoke pipe for 10 y ears since 13 years old, Does still smoke pot but is slowing down. Passive Exposure Comments:Second hand smoke since 6700-9834 Alcohol Use Standard Drinks/Week Comments Yes 14 (1 standard drink = 0.6 oz pure alcohol) hardly any for the last month B1300 Health Literacy Answer Date Recor ded How often do you need to hav e someone help you when you read instructions, pamphlets, or other written material from your doctor or pharmacy? Never 05/04/2024 [facility] Utilities Answer Date Recorded In [...] were you homeless or living in a long-term (including now)? No 05/04/2024 Sex and Gender Information Value Date Recorded Sex Assigned at Not on file Gender Identity Not on file Sexual Orientation Not on file documented as of this encounter Plan of Treatment Upcoming Encounters Date Type Department Care Team (Late st Contact Info) Description 08/22/2024 9:00 AM EST Infusion Hematology Oncology at [address] [phone] 08/26/2024 11:30 AM EST Telephone Hematology [place] [address] [facility] [address] 09/11/2024 8:30 AM EST Laboratory Appointment Lab at [facility] Hematology Oncology [address] [place] [phone] 09/11/2024 9:30 AM EST Office Visit Hematology [place] [phone] Albania Chahal MD [facility] HEMATOLOGY/[place] [address] 09/11/2024 11:00 AM EST Appointment Hematology [place] [phone] 10/02/2024 7:45 AM EDT Laboratory Appointment Lab at [facility] Hematology Oncology [address] [place] [phone] 10/02/2024 9:[address] [place] [phone] Albania Chahal MD [facility] HEMATOLOGY/[place] [address] 10/02/2024 10:30 AM EDT Office Visit Hematology [place] [phone] Albania Chahal MD [facility] HEMATOLOGY/[place], [place] [phone] 10/02/2024 12:00 PM EDT Appointment Hematology [place] [phone] documented as of this encounter Procedures Procedure Name Priority Date/Time Associated Diagnosis Comments EXTERNAL LAB CBC CMP THYROID RESULTS PANEL Routine 05/28/2024 9:58 AM EST documented in this encounter Results * (ABNORMAL) CBC / CMP / Thyroid [...] 144 05/28/2024 9:58 AM EST Historical Provider MD [facility] documented in this encounter Visit Diagnoses Not on filedocumented in this encounter Care Teams Sales Account Coordinator Relationship Specialty Start Date End Date America Caro MD [address] [place] [address] PCP - General Family Medicine 03/31/24 documented as of this encounter
--- OUTSIDE RECORDS SUMMARY | 2024-08-22 01:17 | XMS_ITS | Encounter Summary ---
Author Organization Formerly [facility] Address [facility] [place] [address] Care Team Providers Care Quality Assurance Group Leader Name Role Phone America Caro MD Primary Care Provider [phone] Encounter Details Date Type Department Care Team (Late st Contact Info) Description 05/15/2024 Orders Only Hematology [place] [address] Albania Chahal MD [facility] DR HEMATOLOGY/[place] [address] Non-small cell lung cancer, unspecified laterality Social History Tobacco Use Types Packs/Day Years Used Date Smoking Tobacco: Former Pipe Passive Smoke Exposure: Past Smokeless Tobacco: Never Comments:Smoke pipe for 10 y ears since 13 years old, Does still smoke pot but is slowing down. Passive Exposure Comments:Second hand smoke since [id number] Alcohol Use Standard Drinks/Week Comments Yes 14 (1 standard drink = 0.6 oz pure alcohol) hardly any for the last month B1300 Health Literacy Answer Date Recor ded How often do you need to hav e someone help you when you read instructions, pamphlets, or other written material from your doctor or pharmacy? Never 05/04/2024 [facility] Utilities Answer Date Recorded In [...] any time in the past 12 m [facility], were you homeless or living [...] AM EST Infusion Hematology Oncology at [address] [phone] 08/26/2024 11:30 AM EST Telephone Hematology [place] [address] Aniya Saab, [place] [facility] [place] [address] 09/11/2024 8:30 AM EST Laboratory Appointment Lab at [facility] Hematology Oncology [address] [place] [phone] 09/11/2024 9:30 AM EST Office Visit Hematology [place] [phone] Albania Chahal MD [facility] HEMATOLOGY/[place] [address] 09/11/2024 11:00 AM EST Appointment Hematology [place] [address] 10/02/2024 7:45 AM EDT Laboratory Appointment Lab at [facility] Hematology Oncology [address] [place] [phone] 10/02/2024 9:[address] Scan at [place] [phone] Albania Chahal MD [facility] HEMATOLOGY/[place] [address] 10/02/2024 10:30 AM EDT Office Visit Hematology [place] [address] Albania Chahal MD [facility] HEMATOLOGY/[place] [address] 10/02/2024 12:00 PM EDT Appointment Hematology and Oncology at [place] [phone] Pending Results Name Type Priority Associated Diagnoses Date /Time Miscellaneous Lab request Lab Routine Non-small cell lung cancer, unspecified laterality 06/05/2024 9:15 AM EST Scheduled Orders Name Type Priority Associated Diagnoses Orde r Schedule Miscellaneous Lab request Lab Routine Non-small cell lung cancer, unspecified laterality Every 3 weeks for 9 Occurrences starting 05/15/2024 until 05/15/2025 documented as of this encounter Visit Diagnoses Diagnosis Non-small cell lung cancer, unspecified laterality documented in this encounter Care Teams Quality Assurance Group Leader Relationship Specialty Start Date End Date America Caro MD [address] [place] [address] PCP - General Family Medicine 03/31/24 documented as of this encounter
--- OUTSIDE RECORDS SUMMARY | 2024-08-22 01:17 | XMS_ITS | Encounter Summary ---
Author Organization [facility] [place] [address] Care Team Providers Care Quality Audit Representative Name Role Phone America Caro MD Primary Care Provider [phone] Reason for Visit * Treatment/Therapy Plan Authorization (Routine) - Closed Specialty Diagnoses / Procedures Referred By Contac t Referred To Contact Hematology and Oncology Diagnoses Non-small cell lung cancer, unspecified laterality Medication management Procedures TC PALONOSETRON HCL, 25MCG, INJ (ALOXI) TC APREPITANT, 1 MG, INJ TC PEMBROLIZUMAB, 1 MG, INJ TC PACLITAXEL PROTEIN-BOUND PARTICLES, 1MG, INJ TC PACLITAXEL PROTEIN-BOUND PARTICLES (ARMENIAN REGENT), 1 MG, INJ TC CARBOPLATIN, 50MG, INJ (PARAPLATIN) Albania Chahal MD [facility] DR HEMATOLOGY/[place] [address] Albania Chahal MD [facility] DR HEMATOLOGY/[place] [address] Referral ID Status Reason Start Date Expiration Date Visits Re quested Visits Authorized [id number] Closed 05/06/2024 05/06/2025 99 100 Encounter Details Date Type Department Care Team (Latest Contact Info) Description 06/05/2024 9:07 AM EST - 06/05/2024 11:59 PM EST Hospital Encounter Hematology [place] [address] Thymic carcinoma Discharge Disposition: Home Social History Tobacco Use Types Packs/Day Years Used Date Smoking Tobacco: Former Pipe Passive Smoke Exposure: Past Smokeless Tobacco: Never Comments:Smoke pipe for 10 y ears since 13 years old, Does still smoke pot but is slowing down. Passive Exposure Comments:Second hand smoke since 9974-1968 Alcohol Use Standard Drinks/Week Comments Yes 14 (1 standard drink = 0.6 oz pure alcohol) hardly any for the last month B1300 Health Literacy Answer Date Recor ded How often do you need to hav e someone help you when you read instructions, pamphlets, or other written material from your doctor or pharmacy? Never 05/04/2024 [facility] Utilities Answer Date Recorded In [...] Sign Reading Time Taken Comments Blood Pressure 118/84 06/05/2024 3:50 PM EST Pulse 67 06/05/2024 3:43 PM EST Temperature 36.3 ??C (97.3 ??F) 06/05/2024 3:05 PM ES T Respiratory Rate 18 06/05/2024 3:43 PM EST Oxygen Saturation 99% 06/05/2024 3:43 PM EST Inhaled Oxygen Concentration - - Weight - - Height - - Body Mass Index - - documented in this encounter Discharge Instructions * Patient Instructions* Heather Kennedy RN - 06/05/2024 5:04 PM EST Pt. chemo teaching instructions reinforced: During clinic hours (8am-5pm Sunday-Sunday): pt. can call [phone] with questions or concerns. After clinic hours (5pm-8am Sunday-Sunday and s) pt can call [phone] and ask for the mutual fund analyst/oncologist legal nurse consultant. Henry Javier verbalized understanding of potential chemotherapy side effects and home care including but not limited to- handwashing to prevent infection, signs and symptoms of low blood counts (fever, fatigue, bleeding), to call with a fever of 100.4 or greater, any significant constipation/diarrhea, importance of nutrition and fluid intake (drinking at least 32-64 ounces of non-caffeinated beverages/day), mouth care. documented in this encounter Medications at Time [...] Apply topically 2 times daily. 30 g 05/23/2024 06/26/2024 prochlorperazine (Compazine) 10 mg tablet Take 1 tablet by mouth every 6 hours as needed for Nausea. 15 tablet 05/15/2024 07/18/2024 ibuprofen (Advil) 200 mg tablet Take 200 mg by mouth every 6 hours as needed for Pain. 06/26/2024 documented as of this encounter Progress Notes * Heather Kennedy RN - 06/05/2024 2:32 PM EST Patient Name: Henry Javier Patient Age: 68 y.o. Birthdate: 1955 Admit date: 06/05/2024 Attending Physician: No att. providers found TIME TREATMENT STARTED: 1345 TIME TREATMENT ENDED: 1505 Henry Javier, 68 y.o. 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 PROTOCOL: NA CYCLE: 1 DAY: 1 S: Pt. offers no complaints at this time. Chemo checks performed per policy. Reviewed plan of care for Infusion visit, patient verbalized understanding of plan as outlined. Patient discharged to home O: Patient's Chemotherapy orders independently verified for correct drug name, route and dosage perpatient's height, weight and BSA by Heather Kennedy, ANALI/pharmacy RN and Pharmacist. REACTIONS (DESCRIPTION, TIME, INTERVENTION AND EFFECTIVENESS) After 98.5mL of Ramucirumab, pt reported itching on bilateral upper arms, hives were noted on upperarms, upper back, bilateral flanks and lower abdomen. Med was stopped and HSK administered (see MAR). Provider paged and came to bed side to assess. Hives and redness moving down both arms, down backand noted on bilateral knees. Remainder of treatment was held, pt to be observed for an hour befored/c. 30 mins after HSK, pt still c/o itching and rash. Provider paged and ordered another 6mg or Dex. Pt walked to the bathroom with RN and it was noted that left arm was very edematous and it was noted that finger on bilateral hands were dusky. VS obtained code white called provider to chair side pt was reassessed. Pt had no c/o SOB, difficulty breathing or difficulty swallowing. ok with observing pt for a couple of hours. @1630 reassessed pt and noted that hives had started to disappear and pt report itching had stopped. Edema in left arm had gone down and fingers returning to normal color. to chair to reassess pt and ok with d/c pt at 1700. IV removed and pt ambulated indepently from infusion center. A: Henry Javier confirms that all questions and issues have been addressed. Fluid intake, exercise, watching for a fever and handwashing discussed with patient. P: Return to clinic per routine. documented in this encounter Plan of Treatment Upcoming Encounters Date Type Department Care Team (Late st Contact Info) Description 08/22/2024 9:00 AM EST Infusion Hematology Oncology at [address] [phone] 08/26/2024 11:30 AM EST Telephone Hematology [place] [address] [facility] [place] [address] 09/11/2024 8:30 AM EST Laboratory Appointment Lab at [facility] Hematology Oncology [address] [place] [phone] 09/11/2024 9:30 AM EST Office Visit Hematology [place] [address] Albania Chahal MD [facility] [place]ATOLOGY[place] [address] 09/11/2024 11:00 AM EST Appointment Hematology [place] [address] 10/02/2024 7:45 AM EDT Laboratory Appointment Lab at [facility] Hematology Oncology [address] [place] [phone] 10/02/2024 9:[address] [place] [address] Albania Chahal MD [facility] HEMATOLOGY/[place] [address] 10/02/2024 10:30 AM EDT Office Visit Hematology [place] [phone] Albania Chahal MD [facility] HEMATOLOGY/[place] [address] 10/02/2024 12:00 PM EDT Appointment Hematology [place] [phone] documented as of this encounter Results * Urinalysis Dipstick (06/05/2024 10:10 AM EST) Pathologist [facility] Glucose, Urine Dipstick Negative Negative 06/05/2024 10:25 [...] 06/05/2024 10:25 AM [facility] Specific [place] Urine Automated 1.008 1.005 - 1.030 06/05/2024 10:25 AM [facility] Appearance, Urine Dipstick Clear Clear 06/05/2024 10:25 AM [facility] Color, Urine Dipstick Yellow Yellow, Dark Yellow 06/05/2024 10:25 AM [facility] CULTURE ADDED? 06/05/2024 10:25 AM [facility] Urine URINE SPECIMEN OBTAINED BY CLEAN CATCH PROCEDURE / Unknown 06/05/2024 10:10 AM EST 06/05/2024 10:10 AM EST Albania Dutton MD URINE ORDERABLES Performing Organization Address City/[facility]/ZIP Co de Phone Number [facility] [place] [address] * Magnesium (06/05/2024 9:15 AM EST) Magnesium 0.90 0.69 - 1.07 mMol/L 06/05/2024 10:10 AM [facility] Blood VENOUS BLOOD SPECIMEN / Unknown Venipuncture / Unknown 06/05/2024 9:15 AM EST 06/05/2024 9:15 AM EST Albania Dutton MD CHEMISTRY ORDERA BLES [facility] [place] [address] * Lactate Dehydrogenase (06/05/2024 9:15 AM EST) Lactate Dehydrogenase 158 110 - 220 unit/L 06/05/2024 10:10 AM [facility] Blood VENOUS BLOOD SPECIMEN / Unknown Venipuncture / Unknown 06/05/2024 9:15 AM EST 06/05/2024 9:15 AM EST Albania Schumacher Maicol Dutton MD CHEMISTRY ORDERA BLES [facility] [place] [address] * (ABNORMAL) Comprehensive metabolic panel Non-fasting (06/05/2024 [...] 0 - 55 unit/L 06/05/2024 10:10 AM [facility] Alkaline Phosphatase 240(H) 40 - 130 unit/L 06/05/2024 10:10 AM [facility] Bilirubin, Total 0.2 <=1.3 mg/dL 06/05/2024 10:10 AM [facility] Est Glomerular Filtration Rate - Male 97 mL/min/1. 73 m?? 06/05/2024 10:10 AM [facility] Comment: This patient's [...] Foundation Fasting Status No 06/05/2024 10:10 AM [facility] Blood VENOUS BLOOD SPECIMEN / Unknown Venipuncture / Unknown 06/05/2024 9:15 AM EST 06/05/2024 9:15 AM EST Albania Dutton MD CHEMISTRY ORDERA BLES [facility] [place] [address] * (ABNORMAL) CBC (with Diff) (06/05/2024 9:15 [...] - 3.20 x10(3)/mc L 06/05/2024 10:22 AM EST [facility] Monocyte % 4.1 % 06/05/2024 10:22 AM EST [facility] Monocyte Absolute 0.20(L) 0.30 - 0.90 x10(3)/mc L 06/05/2024 10:22 AM [facility] Eos % 0.8 % 06/05/2024 10:22 AM [facility] Eos Absolute 0.04 0.00 - 0.40 x10(3)/mc L 06/05/2024 10:22 AM EST [facility] Basophil % 1.2 % 06/05/2024 [...] 06/05/2024 9:15 AM EST Albania Dutton MD HEMATOLOGY ORDER HERBERTH Performing Organization Address City/State/[place] Co de Phone Number [facility] [place] [address] documented in this encounter Visit Diagnoses Diagnosis Thymic carcinoma Malignant neoplasm of thymus documented in this encounter Administered Medications Inactive Administered Medications - up to 3 most recent administrations Medication Order MAR Action Action Date Dose Rate Site aprepitant (Cinvanti) (7.2 mg/mL) injection emulsion 130 mg 130 mg, Intravenous, Administer over 2 Minutes, ONCE, 1 dose, On Cherelle 06/05/24 at 1245, Alternative administration of IV push over 2 minutes is a recommendation from the casino worker. Administer prior to chemotherapy., Routine Given 06/05/2024 2:21 PM EST 130 mg denosumab (Xgeva) (120 mg/1.7 mL) subcutaneous injection 120 mg 120 mg, Subcutaneous, ONCE, 1 dose, On Cherelle 06/05/24 at 1300, - Bring to room temperature 15-30 minutes before administration. - Call provider for corrected calcium less than 8.5 mg/dL or CrCl less than 30 mL/min., This agent is restricted to outpatient use. Is this drug being given as an outpatient? Yes Given 06/05/2024 2:23 PM EST 120 mg Left Arm dexAMETHasone (Decadron) injection 4 mg 4 mg, Intravenous, ONCE, 1 dose, On Cherelle 06/05/24 at 1530 Given 06/05/2024 3:09 PM EST 4 mg dexAMETHasone (PF) (Decadron) (10 mg/mL) injection 10 mg 10 mg, Intravenous, ONCE, 1 dose, On Cherelle 06/05/24 at 1315, Administer 30 minutes prior to chemotherapy. Given 06/05/2024 2:21 PM EST 10 mg dexAMETHasone (PF) (Decadron) (10 mg/mL) injection 6 mg 6 mg, Intravenous, ONCE, 1 dose, On Cherelle 06/05/24 at 1600 Given 06/05/2024 4:00 PM EST 6 mg diphenhydrAMINE (Benadryl) (50 mg/mL) injection 25 mg 25 mg, Intravenous, ONCE, 1 dose, On Cherelle 06/05/24 at 1315, Administer 30 minutes prior to chemotherapy., Routine Given 06/05/2024 2:21 PM EST 25 mg diphenhydrAMINE (Benadryl) (50 mg/mL) injection 25 mg 25 mg, Intravenous, ONCE PRN, 2 doses, Starting on Cherelle 06/05/24 at 1453, Until Sun06/06/24 at 0435, Itching, for itching, hives and flushing., May repeat once after 10 minutes. IV push over 1 minute once., Routine Given 06/05/2024 2:55 PM EST 25 mg famotidine (Pepcid) (10 mg/mL) injection 20 mg 20 mg, Intravenous, ONCE, 1 dose, On Cherelle 06/05/24 at 1315, Administer 30 minutes prior to chemotherapy. Given 06/05/2024 2:21 PM EST 20 mg famotidine (Pepcid) (10 mg/mL) injection 20 mg 20 mg, Intravenous, ONCE, 1 dose, On Cherelle 06/05/24 at 1515, IV push over 1 minute once., Routine Given 06/05/2024 2:56 PM EST 20 mg palonosetron (Aloxi) (0.05 mg/mL) injection 0.25 mg 0.25 mg, Intravenous, ONCE, 1 dose, On Cherelle 06/05/24 at 1245, Administer over 30 seconds. Administer prior to chemotherapy., Routine Given 06/05/2024 2:21 PM EST 0.25 mg ramucirumab (Cyramza) 600 mg in sodium chloride 0.9% 250 mL infusion 600 mg (10 mg/kg/dose ? 60 kg Treatment plan Recorded weight), Intravenous, ONCE, 1 dose, On Cherelle 06/05/24 at 1345, Administer over 60 Minutes, - Administer ramucirumab infusion via infusion pump through a separate infusion line. - Flush the line with NS after each dose. - Compatible with 0.9% sodium chloride ONLY. - Hold for grade III or greater hypertension (SBP greater than 160 or DBP greater than 100)., This agent is restricted to outpatient use. Is this drug being given as an outpatient? Yes New Bag 06/05/2024 2:27 PM EST 600 mg 250 mL/hr sodium chloride 0.9% infusion 1,000 mL, Intravenous, ONCE, 1 dose, On Cherelle 06/05/24 at 1245 New Bag 06/05/2024 2:11 PM EST 1,000 mLs documented in this encounter Care Teams Quality Audit Representative Relationship Specialty Start Date End Date America Caro MD [address] [place] [address] PCP - General Family Medicine 03/31/24 documented as of this encounter
--- OUTSIDE RECORDS SUMMARY | 2024-08-22 01:17 | XMS_ITS | Encounter Summary ---
Author Organization [facility] [place] [address] Care Team Providers Care Metrology Engineer Name Role Phone America Caro MD Primary Care Provider [phone] Encounter Details Date Type Department Care Team (Late st Contact Info) Description 05/27/2024 9:30 AM EST Laboratory [place] [phone] Social History Tobacco Use Types Packs/Day Years Used Date Smoking Tobacco: Former Pipe Passive Smoke Exposure: Past Smokeless Tobacco: Never Comments:Smoke pipe for 10 y ears since 13 years old, Does still smoke pot but is slowing down. Passive Exposure Comments:Second hand smoke since [id number] Alcohol Use Standard Drinks/Week Comments Yes 14 (1 standard drink = 0.6 oz pure alcohol) hardly any for the last month B1300 Health Literacy Answer Date Recor ded How often do you need to hav e someone help you when you read instructions, pamphlets, or other written material from your doctor or pharmacy? Never 05/04/2024 [facility] Utilities Answer Date Recorded In the [...] AM EST Infusion Hematology Oncology at [address] [phone] 08/26/2024 11:30 AM EST Telephone [place]ematology [place] [phone] [facility] [place] [address] 09/11/2024 8:30 AM EST Laboratory Appointment Lab at [facility] Hematology Oncology [address] [place] [phone] 09/11/2024 9:30 AM EST Office Visit Hematology [place] [phone] Albania Chahal MD [facility] HEMATOLOGY/[place] [address] 09/11/2024 11:00 AM EST Appointment Hematology [place] [address] 10/02/2024 7:45 AM EDT Laboratory Appointment Lab at [facility] Hematology Oncology [address] [place] [phone] 10/02/2024 9:[address] [place] [address] Albania Chahal MD [facility] HEMATOLOGY/[place] [address] 10/02/2024 10:30 AM EDT Office Visit Hematology [place] [address] Albania Chahal MD [facility] HEMATOLOGY/[place] [address] 10/02/2024 12:00 PM EDT Appointment Hematology [place] [address] documented as of this encounter Visit Diagnoses Not on filedocumented in this encounter Care Teams Metrology Engineer Relationship Specialty Start Date End Date America Caro MD [address] [place] [address] PCP - General Family Medicine 03/31/24 documented as of this encounter
--- OUTSIDE RECORDS SUMMARY | 2024-08-22 01:17 | XMS_ITS | Encounter Summary ---
Author Organization [facility] Address [facility] [place] [address] Care Team Providers Care Credit Controller Name Role Phone America Caro MD Primary Care Provider [phone] Encounter Details Date Type Department Care Team (Late st Contact Info) Description 06/05/2024 2:00 PM EST Clinical Support Hematology [place] [phone] [facility] [place] [address] Thymic carcinoma Social History Tobacco Use Types Packs/Day Years Used Date Smoking Tobacco: Former Pipe Passive Smoke Exposure: Past Smokeless Tobacco: Never Comments:Smoke pipe for 10 y ears since 13 years old, Does still smoke pot but is slowing down. Passive Exposure Comments:Second hand smoke since 1003-7725 Alcohol Use Standard Drinks/Week Comments Yes 14 (1 standard drink = 0.6 oz pure alcohol) hardly any for the last month B1300 Health Literacy Answer Date Recor ded How often do you need to hav e someone help you when you read instructions, pamphlets, or other written material from your doctor or pharmacy? 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 He reports his appetite is better. He has some nutrition questions regarding certain foods, especially in light of his cholecystectomy. He reports he cut back on fat, but has added some foods back inwithout issue (ie eggs, olive oil, butter, 2% milk). He also eats ice cream. He notes he was an avid wine drinker, but has not had wine since February. Pt lost his mother and sister within 4 months of eachother and lost some weight which he was initially happy about until he kept losing. He notes he weighed 127# a few weeks ago. 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 Wt Readings from Last 3 Encounters: 06/05/24 62.8 kg (138 lb 7.2 oz) 05/30/24 60 kg (132 lb 4.8 oz) 05/23/24 60.6 kg (133 lb 8 oz) 6# wt gain this week 175# 2.5 yrs ago Lost mother/sister over 4 m [facility] 160# last year 127# few weeks ago Home 135# Exercise: Demanding dog Walking with neighbor [phone] steps/day Estimated Needs: Calories: 7631-2300 kcal (30-35 kcal/kg) Protein: 76-95g (1.2-1.5g/kg) Meds: lasix, Vit D 1000 units Labs: noted Treatment related side effects: Loss of appetite Intervention: - answered many nutrition questions regarding certain foods - talked about what to do if his appetite is affected after this chemo cycle - encouraged pt to keep exercising as he is doing & eating well Monitoring: Will f/u with pt during next chemo. Aniya Saab RD, CNSC, LD documented in this encounter Plan of Treatment Upcoming Encounters Date Type Department Care Team (Late st Contact Info) Description 08/22/2024 9:00 AM EST Infusion Hematology Oncology at [address] [address] 08/26/2024 11:30 AM EST Telephone Hematology [place] [phone] [facility] [place] [address] 09/11/2024 8:30 AM EST Laboratory Appointment Lab at [facility] Hematology Oncology [address] [place] [phone] 09/11/2024 9:30 AM EST Office Visit Hematology [place] [phone] Albania Chahal MD [facility] HEMATOLOGY/[place] [address] 09/11/2024 11:00 AM EST Appointment Hematology [place] [address] 10/02/2024 7:45 AM EDT Laboratory Appointment Lab at [facility] Hematology Oncology [address] [place] [phone] 10/02/2024 9:[address] Scan at [place] [phone] Albania Chahal MD [facility] HEMATOLOGY/[place] [address] 10/02/2024 10:30 AM EDT Office Visit Hematology [place] [address] Albania Chahal MD [facility] HEMATOLOGY/[place] [address] 10/02/2024 12:00 PM EDT Appointment Hematology [place] [address] documented as of this encounter Visit Diagnoses Diagnosis Thymic carcinoma Malignant neoplasm of thymus documented in this encounter Care Teams Credit Controller Relationship Specialty Start Date End Date America Caro MD [address] [place] [address] PCP - General Family Medicine 03/31/24 documented as of this encounter
--- OUTSIDE RECORDS SUMMARY | 2024-08-22 01:17 | XMS_ITS | Encounter Summary ---
Author Organization [facility] Address [facility] [place] [address] Care Team Providers Care Titrator Name Role Phone America Caro MD Primary Care Provider [phone] Encounter Details Date Type Department Care Team (Latest Contact Info) Description 06/04/2024 Travel Social History Tobacco Use Types Packs/Day Years Used Date Smoking Tobacco: Former Pipe Passive Smoke Exposure: Past Smokeless Tobacco: Never Comments:Smoke pipe for 10 y ears since 13 years old, Does still smoke pot but is slowing down. Passive Exposure Comments:Second hand smoke since 7023-0530 Alcohol Use Standard Drinks/Week Comments Yes 14 (1 standard drink = 0.6 oz pure alcohol) hardly any for the last month B1300 Health Literacy Answer Date Recor ded How often do you need to hav e someone help you when you read instructions, pamphlets, or other written material from your doctor or pharmacy? Never 05/04/2024 [facility] Utilities Answer Date Recorded In the past 12 months has [employer], gas, oil, or water [employer] threatened to shut off services in your [...] AM EST Infusion Hematology Oncology at [address] [address] 08/26/2024 11:30 AM EST Telephone Hematology [place] [phone] [facility] [place] [address] 09/11/2024 8:30 AM EST Laboratory Appointment Lab at [facility] Hematology Oncology [address] [place] [phone] 09/11/2024 9:30 AM EST Office Visit Hematology [place] [phone] Albania Chahal MD [facility] HEMATOLOGY/[place] [address] 09/11/2024 11:00 AM EST Appointment Hematology [place] [phone] 10/02/2024 7:45 AM EDT Laboratory Appointment Lab at [facility] Hematology Oncology [address] [place] [phone] 10/02/2024 9:[address] [place] [phone] Albania Chahal MD [facility] HEMATOLOGY/[place] [address] 10/02/2024 10:30 AM EDT Office Visit Hematology [place] [phone] Albania Chahal MD [facility] HEMATOLOGY[place] [address] 10/02/2024 12:00 PM EDT Appointment Hematology and Oncology at [place] [phone] documented as of this encounter Visit Diagnoses Not on filedocumented in this encounter Care Teams Titrator Relationship Specialty Start Date End Date America Caro MD [address] [place] [address] PCP - General Family Medicine 03/31/24 documented as of this encounter
--- OUTSIDE RECORDS SUMMARY | 2024-08-22 01:17 | XMS_ITS | Encounter Summary ---
Author Organization [facility] Address [facility] [place] [address] Care Team Providers Care Surgical Services Assistant Name Role Phone America Caro MD Primary Care Provider [phone] Encounter Details Date Type Department Care Team (Latest Contact Info) Description 05/30/2024 Travel Social History Tobacco Use Types Packs/Day Years Used Date Smoking Tobacco: Former Pipe Passive Smoke Exposure: Past Smokeless Tobacco: Never Comments:Smoke pipe for 10 y ears since 13 years old, Does still smoke pot but is slowing down. Passive Exposure Comments:Second hand smoke since 1823-3319 Alcohol Use Standard Drinks/Week Comments Yes 14 (1 standard drink = 0.6 oz pure alcohol) hardly any for the last month B1300 Health Literacy Answer Date Recor ded How often do you need to hav e someone help you when you read instructions, pamphlets, or other written material from your doctor or pharmacy? Never 05/04/2024 [facility] Utilities Answer Date Recorded In the past 12 months has [employer], gas, oil, or water [employer] threatened to shut off services in your [...] AM EST Infusion Hematology Oncology at [address] [address] 08/26/2024 11:30 AM EST Telephone [place]ematology [place] [phone] [facility] [place] [address] 09/11/2024 8:30 AM EST Laboratory Appointment Lab at [facility] Hematology Oncology [address] [place] [phone] 09/11/2024 9:30 AM EST Office Visit [place]ematology [place] [phone] Albania Chahal MD [facility] [place]EMATOLOGY[place] [address] 09/11/2024 11:00 AM EST Appointment Hematology [place] [phone] 10/02/2024 7:45 AM EDT Laboratory Appointment Lab at [facility] Hematology Oncology [address] [place] [phone] 10/02/2024 9:[address] [place] [phone] Albania Chahal MD [facility] HEMATOLOGY[place] [address] 10/02/2024 10:30 AM EDT Office Visit Hematology [place] [phone] Albania Chahal MD [facility] HEMATOLOGY[place] [address] 10/02/2024 12:00 PM EDT Appointment Hematology and Oncology at [place] [phone] documented as of this encounter Visit Diagnoses Not on filedocumented in this encounter Care Teams Surgical Services Assistant Relationship Specialty Start Date End Date America Caro MD [address] [place] [address] PCP - General Family Medicine 03/31/24 documented as of this encounter
--- OUTSIDE RECORDS SUMMARY | 2024-08-22 01:17 | XMS_ITS | Encounter Summary ---
Author Organization [facility] [place] [address] Care Team Providers Care Pharmacogeneticist Name Role Phone America Caro MD Primary Care Provider [phone] Encounter Details Date Type Department Care Team (Late st Contact Info) Description 05/26/2024 Telephone Hematology [place] [phone] Tia Becerra, RN Social History Tobacco Use Types Packs/Day Years Used Date Smoking Tobacco: Former Pipe Passive Smoke Exposure: Past Smokeless Tobacco: Never Comments:Smoke pipe for 10 y ears since 13 years old, Does still smoke pot but is slowing down. Passive Exposure Comments:Second hand smoke since 4191-7928 Alcohol Use Standard Drinks/Week Comments Yes 14 (1 standard drink = 0.6 oz pure alcohol) hardly any for the last month B1300 Health Literacy Answer Date Recor ded How often do you need to hav e someone help you when you read instructions, pamphlets, or other written material from your doctor or pharmacy? Never 05/04/2024 [facility] Utilities Answer Date Recorded In the past [...] time in the past 12 m [facility], were you homeless or living in [...] appt. He is scheduled for infusion in [facility] on 05/29 & is asking if he will get chemo that day as scheduled. Advised I would update Dr. Milian & get back [facility] with plan. Updated Dr. Milian. No further intervention at this time. OK to proceed with infusion in [facility] on 05/29 & then RTC 06/05. Call placed to pt with plan. Let him know Dr. Milian has been updated & there is no further intervention needed at this time. Plan is to proceed with infusion 05/29 in [facility]. Pt to then RTC 06/[address] [...] AM EST Infusion Hematology Oncology at [address] [address] 08/26/2024 11:30 AM EST Telephone [place]ematology [place] [address] Aniya Saab, [place] [facility] [place] [address] 09/11/2024 8:30 AM EST Laboratory Appointment Lab at [facility] Hematology Oncology [address] [place] [phone] 09/11/2024 9:30 AM EST Office Visit Hematology [place] [address] Albania Chahal MD [facility] HEMATOLOGY[place] [address] 09/11/2024 11:00 AM EST Appointment Hematology [place] [address] 10/02/2024 7:45 AM EDT Laboratory Appointment Lab at [facility] Hematology Oncology [address] [place] [phone] 10/02/2024 9:[address] [place] [place] [address] Albania Chahal MD [facility] HEMATOLOGY[place] [address] 10/02/2024 10:30 AM EDT Office Visit Hematology [place] [address] Albania Chahal MD [facility] HEMATOLOGY[place] [address] 10/02/2024 12:00 PM EDT Appointment Hematology [place] [address] documented as of this encounter Visit Diagnoses Not on filedocumented in this encounter Care Teams Pharmacogeneticist Relationship Specialty Start Date End Date America Caro MD [address] [place] [address] PCP - General Family Medicine 03/31/24 documented as of this encounter
--- OUTSIDE RECORDS SUMMARY | 2024-08-22 01:17 | XMS_ITS | Encounter Summary ---
Author Organization [facility] [place] [address] Care Team Providers Care Compressed Gas Tester Name Role Phone America Caro MD Primary Care Provider [phone] Encounter Details Date Type Department Care Team (Late st Contact Info) Description 05/23/2024 Telephone Hematology [place] [phone] Tia Becerra, RN Social History Tobacco Use Types Packs/Day Years Used Date Smoking Tobacco: Former Pipe Passive Smoke Exposure: Past Smokeless Tobacco: Never Comments:Smoke pipe for 10 y ears since 13 years old, Does still smoke pot but is slowing down. Passive Exposure Comments:Second hand smoke since 8193-9299 Alcohol Use Standard Drinks/Week Comments Yes 14 (1 standard drink = 0.6 oz pure alcohol) hardly any for the last month B1300 Health Literacy Answer Date Recor ded How often do you need to hav e someone help you when you read instructions, pamphlets, or other written material from your doctor or pharmacy? Never 05/04/2024 [facility] Utilities Answer Date Recorded In the [...] any time in the past 12 m [facility], were you homeless or living in a [place] health care facility (including now)? No 05/04/2024 Sex and Gender Information Value Date Recorded Sex Assigned at Not on file Gender Identity Not on file Sexual Orientation Not on file documented as of this encounter Miscellaneous Notes * Telephone Encounter - Tia Becerra RN - 05/23/2024 3:43 PM EST Message received from leather coverer stating pt was on the line reporting [...] fever. Reminded that there is a provider [facility] over the weekend & explained how to reach [facility] provider on off hours. Triage nurse to [...] AM EST Infusion Hematology Oncology at [address] [address] 08/26/2024 11:30 AM EST Telephone Hematology [place] [phone] Aniya Saab RD [facility] [place] [address] 09/11/2024 8:30 AM EST Laboratory Appointment Lab at [facility] Hematology Oncology [address] [place] [phone] 09/11/2024 9:30 AM EST Office Visit Hematology [place] [phone] Albania Chahal MD [facility] HEMATOLOGY/[place] [address] 09/11/2024 11:00 AM EST Appointment Hematology [place] [address] 10/02/2024 7:45 AM EDT Laboratory Appointment Lab at [facility] Hematology Oncology [address] [place] [phone] 10/02/2024 9:[address] [place] [phone] Albania Chahal MD [facility] HEMATOLOGY/[place] [address] 10/02/2024 10:30 AM EDT Office Visit Hematology [place] [address] Albania Chahal MD [facility] HEMATOLOGY/[place] [address] 10/02/2024 12:00 PM EDT Appointment Hematology [place] [address] documented as of this encounter Visit Diagnoses Not on filedocumented in this encounter Care Teams Compressed Gas Tester Relationship Specialty Start Date End Date America Caro MD [address] [place] [address] PCP - General Family Medicine 03/31/24 documented as of this encounter
--- OUTSIDE RECORDS SUMMARY | 2024-08-22 01:17 | XMS_ITS | Encounter Summary ---
Author Organization [facility] [address] Care Team Providers Care Staff Writer Name Role Phone America Caro MD Primary Care Provider Encounter Details Date Type Department Care Team (Late st Contact Info) Description 06/02/2024 Telephone Hematology [place] [address] Tia Becerra, RN Social History Tobacco Use Types Packs/Day Years Used Date Smoking Tobacco: Former Pipe Passive Smoke Exposure: Past Smokeless Tobacco: Never Comments:Smoke pipe for 10 y ears since 13 years old, Does still smoke pot but is slowing down. Passive Exposure Comments:Second hand smoke since 1740-0490 Alcohol Use Standard Drinks/Week Comments Yes 14 (1 standard drink = 0.6 oz pure alcohol) hardly any for the last month B1300 Health Literacy Answer Date Recor ded How often do you need to hav e someone help you when you read instructions, pamphlets, or other written material from your doctor or pharmacy? Never 05/04/2024 [facility] Utilities Answer Date Recorded In the [...] Telephone Encounter - Tia Becerra RN - 06/02/2024 12:37 PM EST Message received from typing secretary: [phone] Henry called to ask if there is an update on the second opinion diagnosis. Said there were stainsthat may be done to confirm whether it is lung or thymus. He is filing a claim for [facility] exposure with the [facility] and this info will be pertinent. Per Dr. 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 He wrote an addendum. I think he might need the copy of that pathology report. Please let him know this info so he can go ahead to fill out the [facility] form. I will explain more to him this . The treatment does not change a lot, basically we will continue carboplatin, paclitaxel instead of nab- paclitaxel anddc pembrolizumab, every 3 weeks. Call placed to pt & reviewed the above information. Pt asked that a copy of the addended pathology report be sent to him via [facility]. Report sent as requested. He will discuss this in more detail when he sees Dr. Milian later this week. documented in this encounter Plan of Treatment Upcoming Encounters Date Type Department Care Team (Late st Contact Info) Description 08/22/2024 9:00 AM EST Infusion Hematology Oncology at [address] [address] 08/26/2024 11:30 AM EST Telephone Hematology [place] [address] Aniya Saab, [place] [facility] [place] [place] [address] 09/11/2024 8:30 AM EST Laboratory Appointment Lab [place] [facility] [place] [address] [place] [phone] 09/11/2024 9:30 AM EST Office Visit Hematology [place] [address] Albania Chahal MD [facility] HEMATOLOGY[place] [address] 09/11/2024 11:00 AM EST Appointment Hematology [place] [address] 10/02/2024 7:45 AM EDT Laboratory Appointment Lab at [facility] [place] [address] [place] [phone] 10/02/2024 9:[address] [place] [place] [address] Albania Chahal MD [facility] HEMATOLOGY/[place] [address] 10/02/2024 10:30 AM EDT Office Visit Hematology [place] [address] Albania Chahal MD [facility] HEMATOLOGY/[place] [address] 10/02/2024 12:00 PM EDT Appointment Hematology [place] [address] documented as of this encounter Visit Diagnoses Not on filedocumented in this encounter Care Teams Staff Writer Relationship Specialty Start Date End Date America Caro MD [address] [place] [address] PCP - General Family Medicine 03/31/24 documented as of this encounter
--- OUTSIDE RECORDS SUMMARY | 2024-08-22 01:17 | XMS_ITS | Encounter Summary ---
Author Organization [facility] [place] [address] Care Team Providers Care Garnetter Name Role Phone America Caro MD Primary Care Provider [phone] Reason for Visit * Treatment/Therapy Plan Authorization (Routine) - Authorized Specialty Diagnoses / Procedures Referred By Contac t Referred To Contact Hematology and Oncology Diagnoses Thymic carcinoma Medication management Procedures INFUSION [place]ia Chahal MD [facility] [address] HEMATOLOGY/[place] [address] [facility] [address] [place] [address] Referral ID Status Reason Start Date Expiration Date V isits Requested Visits Authorized [id number] Authorized 05/30/2024 05/30/2025 1 102 Encounter Details Date Type Department Care Team (Latest Contact Info) Description 06/26/2024 6:46 AM EST - 06/26/2024 11:59 PM EST Hospital Encounter [place]ematology [place] [phone] Thymic carcinoma Discharge Disposition: Home Social History Tobacco Use Types Packs/Day Years Used Date Smoking Tobacco: Former Pipe Passive Smoke Exposure: Past Smokeless Tobacco: Never Comments:Smoke pipe for 10 y ears since 13 years old, Does still smoke pot but is slowing down. Passive Exposure Comments:Second hand smoke since 2968-3451 Alcohol Use Standard Drinks/Week Comments Yes 14 [...] time in the past 12 m [facility], were you homeless or living in a group home (including now)? No 05/04/2024 Sex and Gender Information Value Date Recorded Sex Assigned at Not on file Gender Identity Not on file Sexual Orientation Not on file documented as of this encounter Discharge Instructions * Attachments The following attachments cannot be sent through Care Everywhere. * Cancer: Nausea and Vomiting ([place]i) * Chemotherapy: Managing Side Effects ([place]i) * Chemotherapy: Side Effects and Safety: General Info ([place]i) documented in this encounter Medications at Time [...] needed for Nausea. 15 tablet 05/15/2024 07/18/2024 documented as of this encounter Progress Notes * Karishma Lowe, RN - 06/26/2024 10:42 AM EST Patient Name: Henry Javier Patient Age: 68 y.o. Birthdate: 1955 Admit date: 06/26/2024 Attending Physician: Aisha att. 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 CYCLE: 1 DAY: 1 S: Pt. offers no complaints at this time. O: Chemotherapy orders independently verified for correct drug name, route and dosage per patient'sheight, weight and BSA by Karishma Lowe, ANALI and onsite pharmacist REACTIONS (DESCRIPTION, TIME, INTERVENTION AND EFFECTIVENESS) NA A: Pt. Tolerated treatment well. Henry Colee confirms that all questions and issues have been addressed. P: Return to clinic as advised. Pt. chemo teaching instructions reinforced: During clinic hours (8am-5pm Sunday-Sunday): pt. can call [phone] with questions or concerns. After clinic hours (5pm-8am Sunday-Sunday and weekends) pt can call [phone] and ask for the sewage reticulation drafting officer/oncologist correctional manager. Henry Javier verbalized understanding of potential chemotherapy side effects and home care including but not limited to- handwashing to prevent infection, signs and symptoms of low blood counts (fever, fatigue, bleeding), to call with a fever of 100.4 or greater, any significant constipation/diarrhea, importance of nutrition and fluid intake (drinking at least 32-64 ounces of non-caffeinated beverages/day), mouth care. documented in this encounter Plan of Treatment Upcoming Encounters Date Type Department Care Team (Late st Contact Info) Description 08/22/2024 9:00 AM EST Infusion Hematology Oncology at [address] [phone] 08/26/2024 11:30 AM EST Telephone Hematology [place] [phone] [facility] [place] [address] 09/11/2024 8:30 AM EST Laboratory Appointment Lab at [facility] Hematology Oncology [address] [place] [phone] 09/11/2024 9:30 AM EST Office Visit Hematology [place] [address] Albania Chahal MD [facility] HEMATOLOGY/[place] [address] 09/11/2024 11:00 AM EST Appointment Hematology [place] [address] 10/02/2024 7:45 AM EDT Laboratory Appointment Lab at [facility] Hematology Oncology [address] [place] [phone] 10/02/2024 9:[address] [place] [address] Albania Chahal MD [facility] HEMATOLOGY[place] [address] 10/02/2024 10:30 AM EDT Office Visit Hematology [place] [address] Albania Chahal MD [facility] HEMATOLOGY/[place] [address] 10/02/2024 12:00 PM EDT Appointment Hematology and Oncology at [facility] [place] [address] documented as of this encounter Results * Magnesium (06/26/2024 6:56 AM EST) Pathologist [facility] [place] Magnesium 0.96 0.69 - 1.07 mMol/L 06/26/2024 7:36 AM [facility] Blood VENOUS BLOOD SPECIMEN / Unknown Venipuncture / Unknown 06/26/2024 6:56 AM EST 06/26/2024 7:04 AM EST Albania Dutton MD CHEMISTRY ORDERA BLES [facility] [place] [address] * Urinalysis Dipstick (06/26/2024 6:56 AM EST) Pathologist [facility] [place] Glucose, Urine Dipstick Negative Negative 06/26/2024 7:08 AM [facility] Protein, Urine Dipstick Negative Negative 06/26/2024 7:08 AM [facility] Bilirubin, Urine Dipstick Negative Negative 06/26/2024 7:08 AM [facility] Comment:Clinical correlation required for positive Urine Bilirubin results as false positive may occur with some drugs and drug related products. If a false positive is suspected a serum total bilirubin should be considered if clinically indicated. Urobilinogen, Urine Dipstick Normal Normal, 0.2 mg/dL, 1.0 mg/dL 06/26/2024 7:08 AM [facility] pH, Urine (dipstick) 5.5 5.0 - 8.0 06/26/2024 7:08 AM [facility] Blood, Urine Dipstick Negative Negative 06/26/2024 7:08 AM [facility] Ketone, Urine Dipstick Negative Negative 06/26/2024 7:08 AM [facility] Nitrite, Urine Dipstick Negative Negative 06/26/2024 7:08 AM [facility] Leukocytes, Urine Dipstick Negative Negative 06/26/2024 7:08 AM [facility] Specific [place] Urine Automated 1.020 1.005 - 1.030 06/26/2024 7:08 AM [facility] Appearance, Urine Dipstick Clear Clear 06/26/2024 7:08 AM [facility] Color, Urine Dipstick Yellow Yellow, Dark Yellow 06/26/2024 7:08 AM [facility] CULTURE ADDED? 06/26/2024 7:08 AM [facility] Urine URINE SPECIMEN OBTAINED BY CLEAN CATCH PROCEDURE / Unknown Non Blood Collection / Unknown 06/26/2024 6:56 AM EST 06/26/2024 7:05 AM EST [place]ia Dutton MD URINE ORDERABLES Performing Organization Address City/[facility]/ZIP Co de Phone Number [facility] [place] [address] * Lactate Dehydrogenase (06/26/2024 6:56 AM EST) Lactate Dehydrogenase 145 110 - 220 unit/L 06/26/2024 7:36 AM [facility] Blood VENOUS BLOOD SPECIMEN / Unknown Venipuncture / Unknown 06/26/2024 6:56 AM EST 06/26/2024 7:04 AM EST Albania Dutton MD CHEMISTRY ORDERA BLES Performing Organization Address City/[facility]/ZIP Co de Phone Number [facility] [place] [address] * (ABNORMAL) Comprehensive metabolic panel Non-fasting (06/26/2024 6:56 AM EST) Glucose 95 65 - 199 mg/dL 06/26/2024 7:36 AM [facility] Comment:Glucose Concentratio n >=200 mg/dL plus symptoms is consistent with Diabetes Mellitus. Blood Urea Nitrogen 19 10 - 20 mg/dL 06/26/2024 7:36 AM [facility] Creatinine 0.93 0.80 - 1.50 mg/dL 06/26/2024 7:36 AM [facility] Sodium 136 135 - 145 mMol/L 06/26/2024 7:36 AM [facility] Potassium 4.5 3.5 - 5.0 mMol/L 06/26/2024 7:36 AM [facility] Chloride 102 98 - 107 mMol/L 06/26/2024 7:36 AM [facility] Carbon Dioxide 26 22 - 31 mMol/L 06/26/2024 7:36 AM [facility] Anion Gap 8 5 - 15 mMol/L 06/26/2024 7:36 AM [facility] Calcium 9.4 8.5 - 10.5 mg/dL 06/26/2024 7:36 AM [facility] Protein, Total 7.5 6.1 - 8.0 g/dL 06/26/2024 7:36 AM [facility] Albumin 4.2 3.2 - 5.2 g/dL 06/26/2024 7:36 AM [facility] Aspartate Aminotransferase 26 <=39 unit/L 06/26/2024 7:36 AM [facility] Alanine Aminotransferase 38 0 - 55 unit/L 06/26/2024 7:36 AM [facility] Alkaline Phosphatase 162(H) 40 - 130 unit/L 06/26/2024 7:36 AM [facility] Bilirubin, Total 0.3 <=1.3 mg/dL 06/26/2024 7:36 AM [facility] Est Glomerular Filtration Rate - Male 88 mL/min/1. 73 m?? 06/26/2024 7:36 AM [facility] Comment: This patient's estimated GFR was [...] Foundation Fasting Status No 06/26/2024 7:36 AM [facility] Blood VENOUS BLOOD SPECIMEN / Unknown Venipuncture / Unknown 06/26/2024 6:56 AM EST 06/26/2024 7:04 AM EST Albania Dutton MD CHEMISTRY ORDERA [facility] Performing Organization Address City/State/[facility] Co de Phone Number [facility] [place] [address] * (ABNORMAL) CBC (with Diff) (06/26/2024 6:56 AM EST) White Blood Cell 5.14 4.00 - 9.50 x10(3)/mc L 06/26/2024 7:38 AM [facility] Red Blood Cell 5.08 4.58 - 5.54 x10(6)/mc L 06/26/2024 7:38 AM [facility] Hemoglobin 13.4(L) 13.7 - 16.5 g/dL 06/26/2024 7:38 AM [facility] Hematocrit 42.5 40.5 - 48.5 % 06/26/2024 7:38 AM [facility] Mean Cell Volume 83.7 82.9 - 93.1 fL 06/26/2024 7:38 AM [facility] Mean Cell Hemoglobin 26.4(L) 27.5 - 32.1 pg 06/26/2024 7:38 AM [facility] Mean Cell Hemoglobin Concentration 31.5(L) 32.0 - 35.7 g/dL 06/26/2024 7:38 AM [facility] Platelet 347 145 - 357 x10(3)/mc L 06/26/2024 7:38 AM [facility] Mean Platelet Volume 8.8 7.6 - 12.9 fL 06/26/2024 7:38 AM [facility] RDW Standard Deviation 68.1(H) 36.0 - 45.0 fL 06/26/2024 7:38 AM [facility] RDW coefficient of variation 23.1(H) 11.4 - 13.8 % 06/26/2024 7:38 AM [facility] NRBC% auto 0.0 % 06/26/2024 7:38 AM [facility] NRBC Absolute <0.01 <0.01 x10(3)/mc L 06/26/2024 7:38 AM [facility] Neutrophil % 64.3 % 06/26/2024 7:38 AM [facility] Neutrophil Absolute (ANC) - Automated 3.31 1.70 - 6.10 x10(3)/mc L 06/26/2024 7:38 AM [facility] Lymph % 24.9 % 06/26/2024 7:38 AM [facility] Lymph Absolute 1.28 0.90 - 3.20 x10(3)/mc L 06/26/2024 7:38 AM [facility] Monocyte % 7.8 % 06/26/2024 7:38 AM [facility] Monocyte Absolute 0.40 0.30 - 0.90 x10(3)/mc L 06/26/2024 7:38 AM [facility] Eos % 1.8 % 06/26/2024 7:38 AM [facility] Eos Absolute 0.09 0.00 - 0.40 x10(3)/mc L 06/26/2024 7:38 AM EST [facility] Basophil % 0.8 % 06/26/2024 7:38 AM EST [facility] Baso Absolute 0.04 0.00 - 0.10 x10(3)/mc L 06/26/2024 7:38 AM EST [facility] Immature Gran % 0.4 % 7:38 AM EST [facility] Immature Gran Absolute <0.04 0.00 - 0.04 x10(3)/mc L 06/26/2024 7:38 AM EST [facility] Blood VENOUS BLOOD SPECIMEN / Unknown Venipuncture / Unknown 06/26/2024 6:56 AM EST 06/26/2024 7:04 AM EST [place] Winsome Dutton MD HEMATOLOGY ORDER [facility] [place] [address] documented in this encounter Visit Diagnoses Diagnosis Thymic carcinoma Malignant neoplasm of thymus documented in this encounter Administered Medications Inactive Administered Medications - up to 3 most recent administrations Medication Order MAR Action Action Date Dose Rate Site aprepitant (Cinvanti) (7.2 mg/mL) injection emulsion 130 mg 130 mg, Intravenous, Administer over 2 Minutes, ONCE, 1 dose, On Cherelle 06/26/24 at 0945, Alternative administration of IV push over 2 minutes is a recommendation from the psychiatric technician assistant. Administer prior to chemotherapy., Routine Given 06/26/2024 10:19 AM EST 130 mg CARBOplatin (Paraplatin) 439 mg in dextrose 5% 293.9 mL infusion 439 mg (rounded from 438.5 mg, Target AUC = 5), Intravenous, ONCE, 1 dose, On Cherelle 06/26/24 at 1415, Administer over 30 Minutes, For target AUC = 5, the maximum dose is 750 mg. Warning Vesicant/Irritant Medication New Bag 06/26/2024 2:47 PM EST 439 mg 587.8 mL/hr denosumab (Xgeva) (120 mg/1.7 mL) subcutaneous injection 120 mg 120 mg, Subcutaneous, ONCE, 1 dose, On Cherelle 06/26/24 at 0945, - Bring to room temperature 15-30 minutes before administration. - Call provider for corrected calcium less than 8.5 mg/dL or CrCl less than 30 mL/min., This agent is restricted to outpatient use. Is this drug being given as an outpatient? Yes Given 06/26/2024 10:19 AM EST 120 mg Left Arm dexAMETHasone (Decadron) tablet 10 mg 10 mg, Oral, ONCE, 1 dose, On Cherelle 06/26/24 at 0945, Administer 30 minutes prior to chemotherapy., Routine Given 06/26/2024 10:15 AM EST 10 mg diphenhydrAMINE (Benadryl) (50 mg/mL) injection 25 mg 25 mg, Intravenous, ONCE, 1 dose, On Cherelle 06/26/24 at 1015, Administer 30 minutes prior to chemotherapy., Routine Given 06/26/2024 10:15 AM EST 25 mg famotidine (Pepcid) (10 mg/mL) injection 20 mg 20 mg, Intravenous, ONCE, 1 dose, On Cherelle 06/26/24 at 1015, Administer 30 minutes prior to chemotherapy. Given 06/26/2024 10:16 AM EST 20 mg PACLitaxeL (Taxol) 328 mg in sodium chloride 0.9% Non-PVC 554.67 mL infusion 328 mg (200 mg/m2/dose ? 1.64 m2 Treatment Plan BSA from Recorded weight), Intravenous, ONCE, 1 dose, On Cherelle 06/26/24 at 1115, Administer over 3 Hours, Warning [...] Warning Vesicant/Irritant Medication , Should this infusion follow 3 Step Titration (Initial Dosing) or Standard Infusion? Initial: 3 Step Titration New Bag 06/26/2024 10:58 AM EST 328 mg 184.9 mL/hr palonosetron (Aloxi) (0.05 mg/mL) injection 0.25 mg 0.25 mg, Intravenous, ONCE, 1 dose, On Cherelle 06/26/24 at 0945, Administer over 30 seconds. Administer prior to chemotherapy., Routine Given 06/26/2024 10:19 AM EST 0.25 mg sodium chloride 0.9% infusion 1,000 mL, Intravenous, ONCE, 1 dose, On Cherelle 06/26/24 at 0945 Restarted 06/26/2024 2:47 PM EST New Bag 06/26/2024 10:08 AM EST 1,000 mLs documented in this encounter Care Teams Garnetter Relationship Specialty Start Date End Date America Caro MD [address] [place] [address] PCP - General Family Medicine 03/31/24 documented as of this encounter
--- OUTSIDE RECORDS SUMMARY | 2024-08-22 01:17 | XMS_ITS | Encounter Summary ---
[place] [address] Care Team Providers Care Project Intern Name Role Phone America Caro MD Primary Care Provider [phone] Encounter Details Date Type Department Care Team (Late st Contact Info) Description 06/17/2024 [place] [address] Anna Reed Social History Tobacco Use Types Packs/Day Years Used Date Smoking Tobacco: Former Pipe Passive Smoke Exposure: Past Smokeless Tobacco: Never Comments:Smoke pipe for 10 y ears since 13 years old, Does still smoke pot but is slowing down. Passive Exposure Comments:Second hand smoke since 1058-0777 Alcohol Use Standard Drinks/Week Comments Yes 14 (1 standard drink = 0.6 oz pure alcohol) hardly any for the last month B1300 Health Literacy Answer Date Recor ded How often do you need to hav e someone help you when you read instructions, pamphlets, or other written material from your doctor or pharmacy? Never 05/04/2024 [facility] Utilities Answer Date Recorded [...] encounter Progress Notes * Anna Reed - 06/17/2024 11:41 AM ESTSummary: Financial Counselor Today, I called the patient to followed up on him. The patient said that he is doing fine,his finances were under control, and he didn't need any help at this time. The patient stated that he will contact me in the event that he required financial support. No further action is required. documented in this encounter Plan of Treatment Upcoming Encounters Date Type Department Care Team (Late st Contact Info) Description 08/22/2024 9:00 AM EST Infusion Hematology Oncology at [address] [phone] 08/26/2024 11:30 AM EST Telephone Hematology [place] [address] Aniya Saab, [facility] [place] [address] 09/11/2024 8:30 AM EST Laboratory Appointment Lab at [facility] Hematology Oncology [address] [place] [phone] 09/11/2024 9:30 AM EST Office Visit Hematology [place] [address] Albania Chahal MD [facility] [address] [place]EMATOLOGY/[place] [address] 09/11/2024 11:00 AM EST Appointment Hematology [place] [address] 10/02/2024 7:45 AM EDT Laboratory Appointment Lab at [facility] Hematology Oncology [address] [place] [phone] 10/02/2024 9:[address] [place] [address] Albania Chahal MD [facility] [place]ATOLOGY/[place] [address] 10/02/2024 10:30 AM EDT Office Visit Hematology [place] [address] Albania Chahal MD [facility] [place]ATOLOGY/[place] [address] 10/02/2024 12:00 PM EDT Appointment Hematology [place] [address] documented as of this encounter Visit Diagnoses Not on filedocumented in this encounter Care Teams Project Intern Relationship Specialty Start Date End Date America Caro MD [address] [place] [address] PCP - General Family Medicine 03/31/24 documented as of this encounter
--- OUTSIDE RECORDS SUMMARY | 2024-08-22 01:18 | XMS_ITS | Encounter Summary ---
Author Organization [facility] Address [facility] [place] [address] Care Team Providers Care Hard Hat Diver Name Role Phone America Caro MD Primary Care Provider [phone] Encounter Details Date Type Department Care Team (Latest Contact Info) Description 05/09/2024 Travel Social History Tobacco Use Types Packs/Day Years Used Date Smoking Tobacco: Former Pipe Passive Smoke Exposure: Past Smokeless Tobacco: Never Comments:Smoke pipe for 10 y ears since 13 years old, Does still smoke pot but is slowing down. Passive Exposure Comments:Second hand smoke since 5267-1057 Alcohol Use Standard Drinks/Week Comments Yes 14 (1 standard drink = 0.6 oz pure alcohol) hardly any for the last month B1300 Health Literacy Answer Date Recor ded How often do you need to hav e someone help you when you read instructions, pamphlets, or other written material from your doctor or pharmacy? Never 05/04/2024 [facility] Utilities Answer Date Recorded In the past 12 months has Advisor Client [employer], gas, oil, or water [employer] threatened to shut off services in your [...] any time in the past 12 m [facility], were you homeless or [...] 9:00 AM EST Infusion Hematology Oncology at [address] [phone] 08/26/2024 11:30 AM EST Telephone [place] [phone] [facility] [place] [place] [address] 09/11/2024 8:30 AM EST Laboratory Appointment Lab at [facility] Hematology Oncology [address] [place] [phone] 09/11/2024 9:30 AM EST Office Visit [place]ology [place] [phone] Albania Chahal MD [facility] HEMATOLOGY/[place] [address] 09/11/2024 11:00 AM EST Appointment [place]ology [place] [phone] 10/02/2024 7:45 AM EDT Laboratory Appointment Lab at [facility] Hematology Oncology [address] [place] [phone] 10/02/2024 9:[address] [place] [place] [phone] Albania Chahal MD [facility] HEMATOLOGY[place] [address] 10/02/2024 10:30 AM EDT Office Visit [place]ology [place] [phone] Albania Chahal MD [facility] HEMATOLOGY[place] [address] 10/02/2024 12:00 PM EDT Appointment Hematology and Oncology at [place] [phone] documented as of this encounter Visit Diagnoses Not on filedocumented in this encounter Care Teams Hard Hat Diver Relationship Specialty Start Date End Date America Caro MD [address] [place] [address] PCP - General Family Medicine 03/31/24 documented as of this encounter
--- OUTSIDE RECORDS SUMMARY | 2024-08-22 01:18 | XMS_ITS | Encounter Summary ---
Author Organization [facility] [place] [address] Care Team Providers Care Utility Aide Name Role Phone America Caro MD Primary Care Provider [phone] Encounter Details Date Type Department Care Team (Late st Contact Info) Description 05/12/2024 Notes Only [place] [address] Albania Chahal MD [facility] [address] HEMATOLOGY/[place] [address] Social History Tobacco Use Types Packs/Day Years Used Date Smoking Tobacco: Former Pipe Passive Smoke Exposure: Past Smokeless Tobacco: Never Comments:Smoke pipe for 10 y ears since 13 years old, Does still smoke pot but is slowing down. Passive Exposure Comments:Second hand smoke since 3950-6459 Alcohol Use Standard Drinks/Week Comments Yes 14 (1 standard drink = 0.6 oz pure alcohol) hardly any for the last month B1300 Health Literacy Answer Date Recor ded How often do you need to hav e someone help you when you read instructions, pamphlets, or other written material from your doctor or pharmacy? Never 05/04/2024 [facility] Utilities Answer Date Recorded In the [...] any time in the past [address] [facility], were you homeless or living [...] Albania Milian M.D. Medical Oncology Pager # [phone] 05/12/24, 11:11 AM [facility] [place] [address] documented in this encounter Plan of Treatment Upcoming Encounters Date Type Department Care Team (Late st Contact Info) Description 08/22/2024 9:00 AM EST Infusion Hematology Oncology at [address] [phone] 08/26/2024 11:30 AM EST Telephone [place] [address] Aniya Saab, [facility] [place] [address] 09/11/2024 8:30 AM EST Laboratory Appointment Lab at [facility] Hematology Oncology [address] [place], [place] [phone] 09/11/2024 9:30 AM EST Office Visit Hematology and Oncology at [place] [phone] Albania Chahal MD [facility] HEMATOLOGY[place] [address] 09/11/2024 11:00 AM EST Appointment Hematology [place] [phone] 10/02/2024 7:45 AM EDT Laboratory Appointment Lab at [facility] Hematology Oncology [address] [place] [phone] 10/02/2024 9:[address] Scan at [place] [phone] Albania Chahal MD [facility] HEMATOLOGY/[place] [address] 10/02/2024 10:30 AM EDT Office Visit [place]ology [place] [address] Albania Chahal MD [facility] HEMATOLOGY/[place] [address] 10/02/2024 12:00 PM EDT Appointment [place]ematology [place] [phone] documented as of this encounter Visit Diagnoses Not on filedocumented in this encounter Care Teams Utility Aide Relationship Specialty Start Date End Date America Caro MD [address] [place] [address] PCP - General Family Medicine 03/31/24 documented as of this encounter
--- OUTSIDE RECORDS SUMMARY | 2024-08-22 01:18 | XMS_ITS | Encounter Summary ---
Author Organization [facility] Address [facility] [place] [address] Care Team Providers Care Flight Inspector Name Role Phone America Caro MD Primary Care Provider [phone] Encounter Details Date Type Department Care Team (Latest Contact Info) Description 05/04/2024 Travel Social History Tobacco Use Types Packs/Day Years Used Date Smoking Tobacco: Former Pipe Passive Smoke Exposure: Past Smokeless Tobacco: Never Comments:Smoke pipe for 10 y ears since 13 years old, Does still smoke pot but is slowing down. Passive Exposure Comments:Second hand smoke since 4479-1549 Alcohol Use Standard Drinks/Week Comments Yes 14 (1 standard drink = 0.6 oz pure alcohol) hardly any for the last month B1300 Health Literacy Answer Date Recor ded How often do you need to hav e someone help you when you read instructions, pamphlets, or other written material from your doctor or pharmacy? Never 05/04/2024 [facility] Utilities Answer Date Recorded In the past 12 months has [employer], gas, oil, or water [employer] threatened to shut off services in [...] any time in the past 12 m [facility], were you homeless or [...] AM EST Infusion Hematology Oncology at [address] [phone] 08/26/2024 11:30 AM EST Telephone [place]ematology [place] [phone] [facility] [place] [address] 09/11/2024 8:30 AM EST Laboratory Appointment Lab at [facility] Hematology Oncology [address] [place] [phone] 09/11/2024 9:30 AM EST Office Visit Hematology [place] [phone] Albania Chahal MD [facility] HEMATOLOGY/[place] [address] 09/11/2024 11:00 AM EST Appointment Hematology [place] [phone] 10/02/2024 7:45 AM EDT Laboratory Appointment Lab at [facility] Hematology Oncology [address] [place] [phone] 10/02/2024 9:[address] [place] [phone] Albania Chahal MD [facility] HEMATOLOGY/[place] [address] 10/02/2024 10:30 AM EDT Office Visit Hematology [place] [phone] Albania Chahal MD [facility] HEMATOLOGY/[place] [address] 10/02/2024 12:00 PM EDT Appointment Hematology and Oncology at [place] [phone] documented as of this encounter Visit Diagnoses Not on filedocumented in this encounter Care Teams Flight Inspector Relationship Specialty Start Date End Date America Caro MD [address] [place] [address] PCP - General Family Medicine 03/31/24 documented as of this encounter
--- OUTSIDE RECORDS SUMMARY | 2024-08-22 01:18 | XMS_ITS | Encounter Summary ---
Author Organization [facility] Address [facility] [place] [address] Care Team Providers Care Flattening Press Operator Name Role Phone America Caro MD Primary Care Provider [phone] Encounter Details Date Type Department Care Team (Late st Contact Info) Description 05/09/2024 Orders Only [place]ology [place] [address] Albania Chahal MD [facility] [address] [place]EMATOLOGY/[place] [address] Non-small cell lung cancer, unspecified laterality Social History Tobacco Use Types Packs/Day Years Used Date Smoking Tobacco: Former Pipe Passive Smoke Exposure: Past Smokeless Tobacco: Never Comments:Smoke pipe for 10 y ears since 13 years old, Does still smoke pot but is slowing down. Passive Exposure Comments:Second hand smoke since 7218-7029 Alcohol Use Standard Drinks/Week Comments Yes 14 [...] AM EST Infusion Hematology Oncology at [address] [phone] 08/26/2024 11:30 AM EST Telephone [place] [address] Aniya Saab, KEATON [facility] [place] [address] 09/11/2024 8:30 AM EST Laboratory Appointment Lab at [facility] Hematology Oncology [address] [place] [phone] 09/11/2024 9:30 AM EST Office Visit [place] [phone] Albania Chahal MD [facility] HEMATOLOGY/[place] [address] 09/11/2024 11:00 AM EST Appointment [place]ology [place] [address] 10/02/2024 7:45 AM EDT Laboratory Appointment Lab at [facility] Hematology Oncology [address] [place] [phone] 10/02/2024 9:[address] Scan at [place] [phone] Albania Chahal MD [facility] HEMATOLOGY[place] [address] 10/02/2024 10:30 AM EDT Office Visit [place]ology [place] [address] Albania Chahal MD [facility] HEMATOLOGY/[place] [address] 10/02/2024 12:00 PM EDT Appointment Hematology and Oncology at [place] [phone] Pending Results Name Type Priority Associated Diagnoses [...] laterality documented in this encounter Care Teams Flattening Press Operator Relationship Specialty Start Date End Date America Caro MD [address] [place] [address] PCP - General Family Medicine 03/31/24 documented as of this encounter
--- OUTSIDE RECORDS SUMMARY | 2024-08-22 01:18 | XMS_ITS | Encounter Summary ---
[place] [address] Care Team Providers Care Electric Motor Repair Supervisor Name Role Phone America Caro MD Primary Care Provider [phone] Reason for Referral * Diagnostic Test (Routine) - Authorized Specialty Diagnoses / Procedures Referred By Contac t Referred To Contact Radiology Diagnoses Non-small cell lung cancer, unspecified laterality Procedures CT Chest w Contrast Albania Chahal MD [facility] DR HEMATOLOGY/[place] [address] Referral ID Status Reason Start Date Expiration Date Visits Requested Visits Authorized [id number] Authorized Specialty Service Requested 11/04/2025 1 1 Reason for Visit * Reason Comments Advice Only * Consultation (Urgent) - Authorized Specialty Diagnoses / Procedures Referred By Contac t Referred To Contact Hematology and Oncology Diagnoses Malignant neoplasm of bronchus and lung HAS LARGE PERICARDIAL EFFUSION America Caro MD [address] [place] [address] [facility] [address] [place] [address] Referral ID Status Reason Start Date Expiration Date Visits Requested Visits Authorized [id number] Authorized Consult, Test & Treat PCP Updated and/or Approved 04/14/2024 10/12/2024 6 6 Encounter Details Date Type Department Care Team (Late st Contact Info) Description 05/06/2024 1:00 PM EDT Office Visit Hematology and Oncology at [facility] [place] [phone] Albania Chahal MD [facility] HEMATOLOGY/[place] [address] Non-small cell lung cancer, unspecified laterality Social History Tobacco Use Types Packs/Day Years Used Date Smoking Tobacco: Former Pipe Passive Smoke Exposure: Past Smokeless Tobacco: Never Comments:Smoke pipe for 10 y ears since 13 years old, Does still smoke pot but is slowing down. Passive Exposure Comments:Second hand smoke since 0621-2614 Alcohol Use Standard Drinks/Week Comments Yes 14 [...] SYSTEMS: As per HPI. A 12 point [id number] was obtained. Symptoms as explained in the [...] . 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 Alcohol: He drank heavily for a long [...] and next-generation sequencing to identify any tumor local bulk driver alterations were ordered yesterday (04/22/2024). Results [...] with infusions scheduled for Day 1 at [facility] and Days 8 and 15 at [facility]. I will arrange for an updated CT [...] treatment for pericarditis as directed by the freezing room worker. I spent 60 minutes in the total care of this patient including review of records and imaging, zpur-fl-wldu consultation and counseling, interpretation of studies, coordination of care and documentation. Albania Milian M.D. Thoracic Oncology Pager # [phone] 05/06/24, 2:[address] [facility] [place] documented in this encounter Plan of Treatment Upcoming Encounters Date Type Department Care Team (Late st Contact Info) Description 08/22/2024 9:00 AM EST Infusion Hematology Oncology at [address] [phone] 08/26/2024 11:30 AM EST Telephone Hematology [place] [phone] [facility] [place] [place] [address] 09/11/2024 8:30 AM EST Laboratory Appointment Lab at [facility] [place] Hematology Oncology [address] [place] [phone] 09/11/2024 9:30 AM EST Office Visit Hematology [place] [phone] Albania Chahal MD [facility] HEMATOLOGY/[place] [address] 09/11/2024 11:00 AM EST Appointment Hematology [place] [address] 10/02/2024 7:45 AM EDT Laboratory Appointment Lab at [facility] [place] Hematology Oncology [address] [place] [phone] 10/02/2024 9:[address] [place] [phone] Albania Chahal MD [facility] HEMATOLOGY/[place] [address] 10/02/2024 10:30 AM EDT Office Visit Hematology [place] [phone] Albania Chahal MD [facility] HEMATOLOGY/[place] [address] 10/02/2024 12:00 PM EDT Appointment Hematology [place] [phone] Pending Results Name Type Priority Associated Diagnoses [...] - 220 unit/L 05/06/2024 1:06 PM EDT [facility] Blood VENOUS BLOOD SPECIMEN / Unknown Venipuncture / Unknown 05/06/2024 12:15 PM EDT 05/06/2024 12:15 PM EDT Albania Dutton MD CHEMISTRY ORDERA BLES [facility] [place] [address] * (ABNORMAL) Comprehensive metabolic panel Non-fasting (05/06/2024 12:15 PM EDT) Glucose 97 65 - 199 mg/dL 05/06/2024 1:18 PM [facility] Comment:Glucose Concentratio n >=200 mg/dL plus symptoms is consistent with Diabetes Mellitus. Blood Urea Nitrogen 19 10 - 20 mg/dL 05/06/2024 1:18 PM [facility] Creatinine 0.79(L) 0.80 - 1.50 mg/dL 05/06/2024 1:18 PM [facility] Sodium 133(L) 135 - 145 mMol/L 05/06/2024 1:18 PM [facility] Potassium 4.9 3.5 - 5.0 mMol/L 05/06/2024 1:18 PM [facility] Chloride 96(L) 98 - 107 mMol/L 05/06/2024 1:18 PM [facility] Carbon Dioxide 27 22 - 31 mMol/L 05/06/2024 1:18 PM [facility] Anion Gap 10 5 - 15 mMol/L 05/06/2024 1:18 PM [facility] Calcium 9.8 8.5 - 10.5 mg/dL 05/06/2024 1:18 PM [facility] Protein, Total 8.4(H) 6.1 - 8.0 g/dL 05/06/2024 1:18 PM [facility] Albumin 3.9 3.2 - 5.2 g/dL 05/06/2024 1:18 PM [facility] Aspartate Aminotransferase 33 <=39 unit/L 05/06/2024 1:18 PM [facility] Alanine Aminotransferase 34 0 - 55 unit/L 05/06/2024 1:18 PM [facility] Alkaline Phosphatase 265(H) 40 - 130 unit/L 05/06/2024 1:18 PM [facility] Bilirubin, Total 0.4 <=1.3 mg/dL 05/06/2024 1:18 PM EDT [facility] Est Glomerular Filtration Rate - Male 96 mL/min/1. 73 m?? 05/06/2024 1:18 PM EDT [facility] Comment: This patient's estimated GFR [...] Fasting Status No 05/06/2024 1:18 PM EDT [facility] Blood VENOUS BLOOD SPECIMEN / Unknown Venipuncture / Unknown 05/06/2024 12:15 PM EDT 05/06/2024 12:15 PM EDT Albania Dutton MD CHEMISTRY ORDERA [facility] Organization Address City/State/ZIP Co de Phone Number [facility] [address] * (ABNORMAL) CBC (with Diff) (05/06/2024 12:15 PM EDT) White Blood Cell 9.45 4.00 - 9.50 x10(3)/mc L 05/06/2024 12:33 PM EDT [facility] Red Blood Cell 4.99 4.58 - 5.54 x10(6)/mc L 05/06/2024 12:33 PM EDT [facility] Hemoglobin 12.9(L) 13.7 - 16.5 g/dL 05/06/2024 12:33 PM EDT [facility] Hematocrit 40.2(L) 40.5 - 48.5 % 05/06/2024 12:33 PM EDT [facility] Mean Cell Volume 80.6(L) 82.9 - 93.1 fL 05/06/2024 12:33 PM [facility] Mean Cell Hemoglobin 25.9(L) 27.5 - 32.1 pg 05/06/2024 12:33 PM [facility] Mean Cell Hemoglobin Concentration 32.1 32.0 - 35.7 g/dL 05/06/2024 12:33 PM [facility] Platelet 689(H) 145 - 357 x10(3)/mc L 05/06/2024 12:33 PM [facility] Mean Platelet Volume 8.5 7.6 - 12.9 fL 05/06/2024 12:33 PM [facility] RDW Standard Deviation 44.5 36.0 - 45.0 fL 05/06/2024 12:33 PM [facility] RDW coefficient of variation 15.2(H) 11.4 - 13.8 % 05/06/2024 12:33 PM [facility] NRBC% auto 0.0 % 05/06/2024 12:33 PM [facility] NRBC Absolute <0.01 <0.01 x10(3)/mc L 05/06/2024 12:33 PM [facility] Neutrophil % 81.1 % 05/06/2024 12:33 PM [facility] Neutrophil Absolute (ANC) - Automated 7.65(H) 1.70 - 6.10 x10(3)/mc L 05/06/2024 12:33 PM [facility] Lymph % 11.6 % 05/06/2024 12:33 PM [facility] Lymph Absolute 1.10 0.90 - 3.20 x10(3)/mc L 05/06/2024 12:33 PM [facility] Monocyte % 6.2 % 05/06/2024 12:33 PM [facility] Monocyte Absolute 0.59 0.30 - 0.90 x10(3)/mc L 05/06/2024 12:33 PM EDT [facility] Eos % 0.2 % 05/06/2024 12:33 PM EDT [facility] Eos Absolute <0.04 0.00 - 0.40 x10(3)/mc L 05/06/2024 12:33 PM EDT [facility] Basophil % 0.4 % 05/06/2024 12:33 PM EDT [facility] Baso Absolute 0.04 0.00 - 0.10 x10(3)/mc L 05/06/2024 12:33 PM EDT [facility] Immature Gran % 0.5 % 12:33 PM EDT [facility] Immature Gran Absolute 0.05(H) 0.00 - 0.04 x10(3)/mc L 05/06/2024 12:33 PM EDT [facility] Blood VENOUS BLOOD SPECIMEN / Unknown Venipuncture / Unknown 05/06/2024 12:15 PM EDT 05/06/2024 12:15 PM EDT Albania Dutton MD HEMATOLOGY ORDER [facility] [place] [address] documented in this encounter Visit Diagnoses Diagnosis Non-small cell lung cancer, unspecified laterality documented in this encounter Care Teams Electric Motor Repair Supervisor Relationship Specialty Start Date End Date America Caro MD [address] [place] [address] PCP - General Family Medicine 03/31/24 documented as of this encounter
--- OUTSIDE RECORDS SUMMARY | 2024-08-22 01:18 | XMS_ITS | Encounter Summary ---
Author Organization [facility] [address] Care Team Providers Care Cargo Service Agent Name Role Phone America Caro MD Primary Care Provider [phone] Encounter Details Date Type Department Care Team (Late st Contact Info) Description 05/09/2024 4:10 PM EDT Ancillary Procedure Radiology Library at [facility] [place] [phone] America Caro MD [address] [place] [address] Social History Tobacco Use Types Packs/Day Years Used Date Smoking Tobacco: Former Pipe Passive Smoke Exposure: Past Smokeless Tobacco: Never Comments:Smoke pipe for 10 y ears since 13 years old, Does still smoke pot but is slowing down. Passive Exposure Comments:Second hand smoke since 6763-4173 Alcohol Use Standard Drinks/Week Comments Yes 14 [...] has e electric, gas, oil, or water [employer] threatened to shut off services in your [...] any time in the past 12 m [facility], were you homeless or living in a alf (including now)? No 05/04/2024 Sex and Gender Information Value Date Recorded Sex Assigned at Not on file Gender Identity Not on file Sexual Orientation Not on file documented as of this encounter Plan of Treatment Upcoming Encounters Date Type Department Care Team (Late st Contact Info) Description 08/22/2024 9:00 AM EST Infusion Hematology Oncology at [address] [phone] 08/26/2024 11:30 AM EST Telephone Hematology [place] [phone] [facility] [place] [address] 09/11/2024 8:30 AM EST Laboratory Appointment Lab at [facility] [place] Hematology Oncology [address] [place] [phone] 09/11/2024 9:30 AM EST Office Visit Hematology [place] [phone] Albania Chahal MD [facility] [place]EMATOLOGY/[place] [address] 09/11/2024 11:00 AM EST Appointment Hematology [place] [address] 10/02/2024 7:45 AM EDT Laboratory Appointment Lab at [facility] Hematology Oncology [address] [place] [phone] 10/02/2024 9:[address] [place] [phone] Albania Chahal MD [facility] DR [place] [address] 10/02/2024 10:30 AM EDT Office Visit Hematology [place] [phone] Albania Chahal MD [facility] HEMATOLOGY[place] [address] 10/02/2024 12:00 PM EDT Appointment Hematology [place] [address] documented as of this encounter Procedures Procedure Name Priority Date/Time Associated Diagnosis Comments FILM LIBRARY STORAGE ONLY CT CHEST Routine 05/09/2024 4:08 PM EDT documented in this encounter Results * Film Library- Storage Only CT Chest (05/09/2024 4:08 PM EDT) Narrative [facility] - 05/09/2024 4:08 PM EDT This exam is auto-finalizing. It's purpose is for storage only. America Caro MD IMG FILM LIBRARY ORD ERABLES [place], [place] documented in this encounter Visit Diagnoses Not on filedocumented in this encounter Care Teams Cargo Service Agent Relationship Specialty Start Date End Date America Caro MD [address] [place] [address] PCP - General Family Medicine 03/31/24 documented as of this encounter
--- OUTSIDE RECORDS SUMMARY | 2024-08-22 01:18 | XMS_ITS | Encounter Summary ---
Author Organization Formerly [facility] [place] [address] Care Team Providers Care Grout Machine Operator Name Role Phone America Caro MD Primary Care Provider Encounter Details Date Type Department Care Team (Late st Contact Info) Description 04/21/2024 Telephone [place] [address] Andrea Freeman MD [facility] [place] [address] Social History Tobacco Use Types Packs/Day Years Used Date Smoking Tobacco: Former Pipe Passive Smoke Exposure: Past Smokeless Tobacco: Never Comments:Smoke pipe for 10 y ears since 13 years old, Does still smoke pot but is slowing down. Passive Exposure Comments:Second hand smoke since 3331-2104 Sex and Gender Information Value Date Recorded [...] suspect malignant pericardial effusion (seeing cardiology at [facility] for this) and that if his dyspnea [...] Section of Pulmonary & Critical Care Pager: [phone] documented in this encounter Plan of Treatment Upcoming Encounters Date Type Department Care Team (Late st Contact Info) Description 08/22/2024 9:00 AM EST Infusion Hematology Oncology at [address] [phone] 08/26/2024 11:30 AM EST Telephone Hematology [place] [address] Aniya Saab, KE[place]ON [facility] [place] [address] 09/11/2024 8:30 AM EST Laboratory Appointment Lab at [facility] Hematology Oncology [address] [place] [phone] 09/11/2024 9:30 AM EST Office Visit Hematology [place] [address] Albania Chahal MD [facility] HEMATOLOGY/[place] [address] 09/11/2024 11:00 AM EST Appointment Hematology [place] [address] 10/02/2024 7:45 AM EDT Laboratory Appointment Lab at [facility] Hematology Oncology [address] [place] [phone] 10/02/2024 9:[address] Scan at [place] [phone] Albania Chahal MD [facility] HEMATOLOGY/[place] [address] 10/02/2024 10:30 AM EDT Office Visit Hematology [place] [address] Albania Chahal MD [facility] HEMATOLOGY/[place] [address] 10/02/2024 12:00 PM EDT Appointment Hematology and Oncology at [place] [phone] documented as of this encounter Visit Diagnoses Not on filedocumented in this encounter Care Teams Grout Machine Operator Relationship Specialty Start Date End Date America Caro MD [address] [place] [address] PCP - General Family Medicine 03/31/24 documented as of this encounter
--- OUTSIDE RECORDS SUMMARY | 2024-08-22 01:18 | XMS_ITS | Encounter Summary ---
[place] [address] Care Team Providers Care Telecom Sales Consultant Name Role Phone America Caro MD Primary Care Provider [phone] Encounter Details Date Type Department Care Team (Late st Contact Info) Description 05/09/2024 Notes Only [place] [phone] Filemon Millan, RN Social History Tobacco Use Types Packs/Day Years Used Date Smoking Tobacco: Former Pipe Passive Smoke Exposure: Past Smokeless Tobacco: Never Comments:Smoke pipe for 10 y ears since 13 years old, Does still smoke pot but is slowing down. Passive Exposure Comments:Second hand smoke since 0106-1644 Alcohol Use Standard Drinks/Week Comments Yes 14 [...] AM EST Infusion Hematology Oncology at [address] [phone] 08/26/2024 11:30 AM EST Telephone [place] [address] Aniya Saab, [facility] [facility] [place] [address] 09/11/2024 8:30 AM EST Laboratory Appointment Lab at [facility] Hematology Oncology [address] [place] [phone] 09/11/2024 9:30 AM EST Office Visit [place] [phone] Albania Chahal MD [facility] HEMATOLOGY/[place] [address] 09/11/2024 11:00 AM EST Appointment [place] [phone] 10/02/2024 7:45 AM EDT Laboratory Appointment Lab at [facility] Hematology Oncology [address] [place] [phone] 10/02/2024 9:[address] Scan at [place] [phone] Albania Chahal MD [facility] HEMATOLOGY/[place] [address] 10/02/2024 10:30 AM EDT Office Visit [place] [phone] Albania Chahal MD [facility] HEMATOLOGY/[place] [address] 10/02/2024 12:00 PM EDT Appointment Hematology and Oncology at [place] [phone] documented as of this encounter Visit Diagnoses Not on filedocumented in this encounter Care Teams Telecom Sales Consultant Relationship Specialty Start Date End Date America Caro MD [address] [place] [address] PCP - General Family Medicine 03/31/24 documented as of this encounter
--- OUTSIDE RECORDS SUMMARY | 2024-08-22 01:18 | XMS_ITS | Encounter Summary ---
Author Organization Formerly [facility] Address [facility] [place] [address] Care Team Providers Care Die Mounter Name Role Phone America Caro MD Primary Care Provider [phone] Encounter Details Date Type Department Care Team (Latest Contact Info) Description 04/24/2024 6:27 AM EDT - 04/24/2024 9:32 AM EDT Hospital Encounter [place] [address] BackerAndrea MD [facility] [place] [address] Discharge Disposition: Home Social History Tobacco Use Types Packs/Day Years Used Date Smoking Tobacco: Former Pipe Passive Smoke Exposure: Past Smokeless Tobacco: Never Comments:Smoke pipe for 10 y ears since 13 years old, Does still smoke pot but is slowing down. Passive Exposure Comments:Second hand smoke since 9610-5400 Alcohol Use Standard Drinks/Week Comments Yes 14 [...] your doctor if you can take an nnnh-hyh-mfkaajp medicine. If you think your pain medicine [...] more? Visit our health information library at [email or web address]. You can also view health information on bitmovin, your personal patient account. Log in or sign uptoday. Enter S288 in the search box to learn more about Bronchoscopy: What to Expect at Home. Current as of: December 22, 2018 Content Version: 12.2 ?? 8799-3224 [employer]. Care instructions adapted under license by [facility]. If you have questions about a medical condition or this instruction, always ask your healthcare professional. [employer] disclaims any warranty or liability for your [...] every 4 hours as needed for Pain. ibuprofen (Advil) 200 mg tablet Take 200 [...] Section of Pulmonary & Critical Care Pager: [phone] documented in this encounter Miscellaneous Notes * [...] the procedure. Procedure Descriptions: Airway Examination: A PPDai EB-580S (5.3 mm) flexible bronchoscope was used [...] [see below]). . EBUS-TBNA (4 sites): The PPDai EBUS (EB-530US) scope was inserted, lymph node [...] Station 4L was <5 mm. Therapeutic Suctioning (01304): A significant portion of operative time was spent clearing out the airway of debris, blood and secretions prior to or during the intervention. Chest Ultrasound with Interpretation (94333/modifier 26): The patient was placed in a supine position and a bilateral lateral (limited) chest aogkw-wv-wdtw ultrasound was performed. No pleural effusion was [...] Section of Pulmonary & Critical Care Pager: [phone] documented in this encounter Plan of Treatment Upcoming Encounters Date Type Department Care Team (Late st Contact Info) Description 08/22/2024 9:00 AM EST Infusion Hematology Oncology at [address] [phone] 08/26/2024 11:30 AM EST Telephone Hematology [place] [address] Aniya Saab, [place] [facility] [place] [place] [address] 09/11/2024 8:30 AM EST Laboratory Appointment Lab at [facility] Hematology Oncology [address] [place] [phone] 09/11/2024 9:30 AM EST Office Visit Hematology [place] [phone] Albania Chahal MD [facility] [place]ATOLOGY/[place] [address] 09/11/2024 11:00 AM EST Appointment Hematology [place] [phone] 10/02/2024 7:45 AM EDT Laboratory Appointment Lab at [facility] Hematology Oncology [address] [place] [phone] 10/02/2024 9:[address] [place] [phone] Albania Chahal MD [facility] DR CARTWRIGHT/[place] [address] 10/02/2024 10:30 AM EDT Office Visit Hematology [place] [address] Albania Chahal MD [facility] HEMATOLOGY[place] [address] 10/02/2024 12:00 PM EDT Appointment Hematology [place] [phone] documented as of this encounter Procedures Procedure [...] THAN THYROID Routine 04/24/2024 8:22 AM EDT [facility] Guided Sampl 3/> Node Station/Strux (86018) 04/24/2024 7:37 AM EDT Lymphadenopathy documented in this encounter Results * (ABNORMAL) Cytology FNA (04/24/2024 8:22 AM EDT) Case Report Medical Cytology Report ? Case: [id number] ? Authorizing Provider: ??Andrea Freeman MD ? Collected: ? 04/24/2024821 ? Ordering Location: ? Gastroenterology at [facility] ?? Received: ?04/24/2024842 ? Pathologist: ? Kedar Connor MD ? Specimen: ?Lung, Left Lower Lobe ? 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 Cell block was examined. See note. Note: The malignant cells have high nuclear to cytoplasmic ratios, hyperchromatic chromatin and occasional nucleoli and pseudoinclusions. By immunohistochemistry they show strong expression for keratin ([id number]) and squamous markers (p40, CK5) with patchy, [...] and radiological correlation is recommended. 10:07 AM [facility] Specimen Adequacy Satisfactory for evaluation. 10:07 AM [facility] Addendum 2 Additional immunohistochemical testing reveals that the malignant cells are positive for PAX8 and CD117 and negative for CD5. 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 10:07 AM [facility] Addendum electronically signed by Kedar Connor [...] The assay was performed according to the operations leader's instructions using Anti-PD-L1 (22C3, pharmDX) antibody. 10:07 AM [facility] Addendum electronically signed by Kedar Connor MD on 05/14/2024 at 1:14 PM Additional Studies Task ID IHC/Special Stains Result A1-2 TTF1 Negative A1-3 p40 Positive A1-4 Synaptophysin Rare, weak positive A1-5 INSM1 Patchy positive A1-6 CD45 Negative A1-7 Ki-67 Positive >70% A1-8 [id number] Positive A1-9 RB1 Rare positive A1-10 Chromogranin A Rare, weak positive A1-11 CK5 Positive A1-12 NUT Negative A1-13 p16 Positive 10:07 AM [facility] Disclaimer(s) Formalin-fixed, paraffin-embedded tissue sections are [...] criteria and other diagnostic tests. 10:07 AM [facility] Clinical Information 68 y.o with mediastinal mass 10:07 AM [facility] Gross Description Received in formalin, approximately 20 mL total volume of cloudy, red fluid with clots. Total preparation: Cell Block: 1. 10:07 AM [facility] Result Note THIS RESULT REQUIR ES PHYSICIAN/MARVIN FOLLOW UP(A) 10:07 AM [facility] Fine Needle Aspirate STRUCTURE OF LOWER LOBE OF LEFT LUNG / Unknown Non Blood Collection / Unknown 04/24/2024 8:22 AM EDT 04/24/2024 8:43 AM EDT Andrea Freeman MD PATHOLOGY/CYTOLOGY O RDERABLES [facility] [place] [address] * (ABNORMAL) Cytology FNA (04/24/2024 8:22 AM EDT) Case Report Medical Cytology Report ? Case: [id number] ? Authorizing Provider: ??Andrea Freeman MD ? Collected: ? 04/24/2024821 ? Ordering Location: ? Gastroenterology at [facility] ?? Received: ?04/24/2024842 ? Pathologist: ? Kedar Connor MD ? Specimen: ?Lymph Node, Station 7 ? 05/01/2024 12:53 PM EDT [facility] Specimen Source Lymph Node, Station 7, EBUS-guided FNA 05/01/2024 12:53 PM EDT [facility] Final Diagnosis Positive for malignancy 05/01/2024 12:53 PM EDT [facility] Diagnosis Discussion Poorly differentiated carcinoma. See [id number] for complete characterization. Cell block was examined. 05/01/2024 12:53 PM EDT [facility] Specimen Adequacy Satisfactory for evaluation. 05/01/2024 12:53 PM EDT [facility] Clinical Information 68 y.o with mediastinal mass 05/01/2024 12:53 PM EDT [facility] Gross Description Received in formalin, approximately 20 mL total volume of cloudy, pink fluid with clots. Total preparation: Cell Block: 1. 05/01/2024 12:53 PM EDT [facility] Result Note THIS RESULT REQUIRES PHYSICIAN/MARVIN FOLLOW UP(A) 05/01/2024 12:53 PM EDT [facility] Fine Needle Aspirate (Lymph Node, Station 7) Non Blood Collection / Unknown 04/24/2024 8:22 AM EDT 04/24/2024 8:43 AM EDT Andrea Freeman MD PATHOLOGY/CYTOLOGY O RDERABLES Performing Organization Address City/State/[facility] Co de Phone Number [facility] [place] [address] * (ABNORMAL) Cytology FNA (04/24/2024 8:22 AM EDT) Case Report Medical Cytology Report ? Case: [id number] ? Authorizing Provider: ??Andrea Freeman MD ? Collected: ? 04/24/202422 ? Ordering Location: ? Gastroenterology at [facility] ?? Received: ?04/24/2024 0845 ? Pathologist: ? Kedar Connor MD ? Specimen: ?Lymph Node, Station 4R ? 05/01/2024 12:57 PM EDT [facility] Specimen Source Lymph Node, Station 4R, EBUS-guided FNA 05/01/2024 12:57 PM EDT [facility] Final Diagnosis Suspicious for malignancy 05/01/2024 12:57 PM [facility] Diagnosis Discussion There is a single cluster of highly atypical epithelioid cells which are morphologically similar to the malignant cells see in [id number]. The background contains lymphoid tissue. Cell block was examined. 05/01/2024 12:57 PM T [facility] Specimen Adequacy Satisfactory for evaluation. 05/01/2024 12:57 PM EDT [facility] Clinical Information 68 y.o with mediastinal mass 05/01/2024 12:57 PM T [facility] Gross Description Received in formalin, approximately 25 mL total volume of clear, pink fluid with clots. Total preparation: Cell Block: 1. 05/01/2024 12:57 PM [facility] Result Note THIS RESULT REQUIRES PHYSICIAN/MARVIN FOLLOW UP(A) 05/01/2024 12:57 PM T [facility] Fine Needle Aspirate (Lymph Node, Station 4R) Non Blood Collection / Unknown 04/24/2024 8:22 AM EDT 04/24/2024 8:45 AM EDT Andrea Freeman MD PATHOLOGY/CYTOLOGY O RDERABLES [facility] [place] [address] * Cytology FNA (04/24/2024 8:22 AM EDT) Case Report Medical Cytology Report ? Case: [id number] ? Authorizing Provider: ??Andrea Freeman MD ? Collected: ? 04/24/2024821 ? Ordering Location: ? Gastroenterology at [facility] ?? Received: ?04/24/2024843 ? Pathologist: ? Kedar Connor MD ? Specimen: ?Lymph Node, Station 11R ? 05/01/2024 12:54 PM EDT [facility] Specimen Source Lymph Node, Station 11R, EBUS-guided FNA 05/01/2024 12:54 PM EDT [facility] Final Diagnosis Negative for malignancy 05/01/2024 12:54 PM EDT [facility] Diagnosis Discussion Consistent with benign lymph node sampling. Cell block was examined. 05/01/2024 12:54 PM EDT [facility] Specimen Adequacy Satisfactory for evaluation. 05/01/2024 12:54 PM EDT [facility] Clinical Information 68 y.o with mediastinal mass 05/01/2024 12:54 PM EDT [facility] Gross Description Received in formalin, approximately 20 mL total volume of cloudy, red fluid with clots. Total preparation: Cell Block: 1. 05/01/2024 12:54 PM EDT [facility] Result Note Routine 05/01/2024 12:54 PM EDT [facility] Fine Needle Aspirate (Lymph Node, Station 11R) Non Blood Collection / Unknown 04/24/2024 8:22 AM EDT 04/24/2024 8:44 AM EDT Andrea Freeman MD PATHOLOGY/CYTOLOGY O RDERABLES [facility] [place] [phone] * Immunophenotyping Flow Cytometry (04/24/2024 8:22 AM EDT) Final Diagnosis - No phenotypically abnormal T-cell population detected, limited number of B-cells for assessment (see Comment). 04/25/2024 11:54 AM EDT [facility] Signing Pathologist This result has been reviewed by Misbah Hand DO on 04/25/24 at 11:54 AM. 04/25/2024 11:54 AM EDT [facility] Discussion Flow cytometry does not detect certain hematolymphoid malignancies and non-hematolymphoid malignancies. Correlation with pending morphology from the biopsy is recommended. 04/25/2024 11:54 AM [facility] Interpretation B-cells were less than 30 in number, too few for adequate assessment. 04/25/2024 11:54 AM [facility] Lymphocyte % 15.0 % 04/25/2024 11:54 AM [facility] CD3+ % 52.0 % 04/25/2024 11:54 AM [facility] CD19+ % 1.0 % 04/25/2024 11:54 AM [facility] CD56+ % 43.0 % 04/25/2024 11:54 AM [facility] B-Cell:T-Cell Ratio 0.0 04/25/2024 11:54 AM [facility] [place]:Lambda Ratio 1.6 04/25/2024 11:54 AM [facility] CD4:CD8 Ratio 1.0 04/25/2024 11:54 AM [facility] Cell Viability % 68.2 % 04/25/20 11:54 AM [facility] Specimen Processing Cells for immunophenotypic analysis were derived from lung fine needle biopsy. The following markers were assessed: CD2, CD3, CD4, CD5, CD7, CD8, CD10, CD19, CD45, CD56, kappa light chain, and lambda light chain. 04/25/2024 11:54 AM [facility] Disclaimer Flow analysis is an ancillary study. A definite diagnosis requires correlation with the morphologic features of this process and if necessary, correlation with other ancillary studies like immunohistochemist ry, enzyme cytochemistry and/or cyto/molecular genetics. This test was developed and its performance characteristics determined by the Clinical Flow Cytometry Laboratory at [facility]. It has not been cleared [...] clinical laboratory testing. 04/25/2024 11:54 AM EDT [facility] Clinical Information Lung nodules 04/25/2024 11:54 AM EDT [facility] Fine Needle Aspirate STRUCTURE OF LOWER LOBE OF LEFT LUNG / Unknown Non Blood Collection / Unknown 04/24/2024 8:22 AM EDT 04/24/2024 8:42 AM EDT Andrea Freeman MD HEMATOLOGY ORDERABLE S [facility] [place] [address] documented in this encounter Visit Diagnoses Not [...] CRNA) documented in this encounter Care Teams Die Mounter Relationship Specialty Start Date End Date America Caro MD [address] [place] [address] PCP - General Family Medicine 03/31/24 documented as of this encounter
--- OUTSIDE RECORDS SUMMARY | 2024-08-22 01:18 | XMS_ITS | Encounter Summary ---
Author Organization [facility] [place] [address] Care Team Providers Care Telephone Directory Deliverer Name Role Phone America Caro MD Primary Care Provider [phone] Reason for Referral * Diagnostic Test (Routine) - Closed Specialty Diagnoses / Procedures Referred By Contac t Referred To Contact Radiology Diagnoses NSCLC of left lung Procedures MRI Brain wwo Contrast (Generic) Andrea Freeman MD [facility] [place] [address] [place] [address] Referral ID Status Reason Start Date Expiration Date V isits Requested Visits Authorized [id number] Closed Specialty Service Requested 05/01/2024 10/30/2025 1 1 Encounter Details Date Type Department Care Team (Late st Contact Info) Description 05/01/2024 Telephone [place] [phone] Andrea Freeman MD [facility] [place] [address] Social History Tobacco Use Types Packs/Day Years Used Date Smoking Tobacco: Former Pipe Passive Smoke Exposure: Past Smokeless Tobacco: Never Comments:Smoke pipe for 10 y ears since 13 years old, Does still smoke pot but is slowing down. Passive Exposure Comments:Second hand smoke since 8890-6391 Alcohol Use Standard Drinks/Week Comments Yes 14 [...] were answered to his liking. Home Phone [phone] Andrea Freeman MD, 05/01/2024, 1:23 PM Interventional Pulmonology Section of Pulmonary & Critical Care Pager: [phone] documented in this encounter Plan of Treatment Upcoming Encounters Date Type Department Care Team (Late st Contact Info) Description 08/22/2024 9:00 AM EST Infusion Hematology Oncology at [address] [address] 08/26/2024 11:30 AM EST Telephone Hematology [place] [address] Aniya Saab, [facility] [facility] [place] [address] 09/11/2024 8:30 AM EST Laboratory Appointment Lab [place] [facility] [place] Oncology [address] [place] [phone] 09/11/2024 9:30 AM EST Office Visit Hematology [place] [address] Albania Chahal MD [facility] HEMATOLOGY[place] [address] 09/11/2024 11:00 AM EST Appointment Hematology [place] [phone] 10/02/2024 7:45 AM EDT Laboratory Appointment Lab at [facility] [place] [address] [place] [phone] 10/02/2024 9:[address] [place] [place] [phone] Albania Chahal MD [facility] HEMATOLOGY[place] [address] 10/02/2024 10:30 AM EDT Office Visit Hematology [place] [address] Albania Chahal MD [facility] HEMATOLOGY[place] [address] 10/02/2024 12:00 PM EDT Appointment [place]ematology [place] [address] documented as of this encounter Results * MRI Brain wwo Contrast (Generic) (05/07/2024 9:14 AM EDT) [email or web address] Signature WORKSTATION ID [id number] [facility] Anatomical Region Laterality Modality Head Magnetic Resonan [...] who have questions please contact the health daycare assistant that requested your imaging first. ? [...] patients who have questions please contactthe health daycare assistant that requested your imaging first. Andrea Freeman MD IMG MRI ORDERABLES documented in this encounter Visit Diagnoses Diagnosis NSCLC of left lung NSCLC of left lung documented in this encounter Care Teams Telephone Directory Deliverer Relationship Specialty Start Date End Date America Caro MD [address] [place] [id number] PCP - General Family Medicine 03/31/24 documented as of this encounter
--- OUTSIDE RECORDS SUMMARY | 2024-08-22 01:18 | XMS_ITS | Encounter Summary ---
Author Organization [facility] [place] [address] Care Team Providers Care Home Appliances Mechanic Name Role Phone America Caro MD Primary Care Provider [phone] Reason for Visit * Reason Onset Date Comments Other 04/23/2024 Bronchoscopy ins tructions Encounter Details Date Type Department Care Team (Late st Contact Info) Description 04/23/2024 [place] [phone] Roseanna Rutledge RN Other (Bronchoscopy instructions) Social History Tobacco Use Types Packs/Day Years Used Date Smoking Tobacco: Former Pipe Passive Smoke Exposure: Past Smokeless Tobacco: Never Comments:Smoke pipe for 10 y ears since 13 years old, Does still smoke pot but is slowing down. Passive Exposure Comments:Second hand smoke since 2447-0223 Sex and Gender Information Value Date Recorded [...] minutes. [x] Informed patient they must have otr hazmat company driver who accompanies them into and to drive pt home safelyafter the procedure. Conrelius Miguel -Masking is now optional if you [...] ALEXANDR Payan, RN Pulmonary [facility] Clinic Pager: [phone] documented in this encounter Plan of Treatment Upcoming Encounters Date Type Department Care Team (Late st Contact Info) Description 08/22/2024 9:00 AM EST Infusion Hematology Oncology at [address] [address] 08/26/2024 11:30 AM EST Telephone [place] [phone] [facility] [place] [address] 09/11/2024 8:30 AM EST Laboratory Appointment Lab at [facility] Hematology Oncology [address] [place] [phone] 09/11/2024 9:30 AM EST Office Visit Hematology [place] [address] Albania Chahal MD [facility] HEMATOLOGY/[place] [address] 09/11/2024 11:00 AM EST Appointment Hematology [place] [address] 10/02/2024 7:45 AM EDT Laboratory Appointment Lab at [facility] Hematology Oncology [address] [place] [phone] 10/02/2024 9:[address] [place] [place] [address] Albania Chahla MD [facility] DR [facility] [address] 10/02/2024 10:30 AM EDT Office Visit Hematology [place] [address] Albania Chahal MD [facility] HEMATOLOGY/[place] [address] 10/02/2024 12:00 PM EDT Appointment Hematology [place] [address] documented as of this encounter Visit Diagnoses Not on filedocumented in this encounter Care Teams Home Appliances Mechanic Relationship Specialty Start Date End Date America Caro MD [address] [place] [address] PCP - General Family Medicine 03/31/24 documented as of this encounter
--- OUTSIDE RECORDS SUMMARY | 2024-08-22 01:18 | XMS_ITS | Encounter Summary ---
[place] [address] Care Team Providers Care Firebrick Layer Helper Name Role Phone America Caro MD Primary Care Provider [phone] Encounter Details Date Type Department Care Team (Latest Contact Info) Description 05/15/2024 10:00 AM EDT Clinical Support Hematology [place] [phone] Bart Saunders, [facility] Non-small cell lung cancer, unspecified laterality Social History Tobacco Use Types Packs/Day Years Used Date Smoking Tobacco: Former Pipe Passive Smoke Exposure: Past Smokeless Tobacco: Never Comments:Smoke pipe for 10 y ears since 13 years old, Does still smoke pot but is slowing down. Passive Exposure Comments:Second hand smoke since 6797-5609 Alcohol Use Standard Drinks/Week Comments Yes 14 (1 standard drink = 0.6 oz pure alcohol) hardly any for the last month B1300 Health Literacy Answer Date Recor ded How often do you need to hav e someone help you when you read instructions, pamphlets, or other written material from your doctor or pharmacy? Never 05/04/2024 [facility] Utilities Answer Date Recorded In [...] any time in the past 12 m [facility], were you homeless or living in a half-way (including now)? No 05/04/2024 Sex and Gender Information Value Date Recorded Sex Assigned at Not on file Gender Identity Not on file Sexual Orientation Not on file documented as of this encounter Progress Notes * Bart Saunders, [facility] - 05/15/2024 10:00 AM EDT PATIENT ID: [...] 9:00 AM EST Infusion Hematology Oncology at [address] [address] 08/26/2024 11:30 AM EST Telephone Hematology [place] [address] Aniya Saab, [facility] [place] [address] 09/11/2024 8:30 AM EST Laboratory Appointment Lab at [facility] Hematology Oncology [address] [place] [phone] 09/11/2024 9:30 AM EST Office Visit Hematology [place] [address] Albania Chahal MD [facility] HEMATOLOGY/[place] [address] 09/11/2024 11:00 AM EST Appointment Hematology [place] [address] 10/02/2024 7:45 AM EDT Laboratory Appointment Lab at [facility] Hematology Oncology [address] [place] [phone] 10/02/2024 9:[address] [place] [address] Albania Chahal MD [facility] HEMATOLOGY/[place] [address] 10/02/2024 10:30 AM EDT Office Visit Hematology [place] [address] Albania Chahal MD [facility] HEMATOLOGY/[place] [address] 10/02/2024 12:00 PM EDT Appointment Hematology [place] [address] documented as of this encounter Visit Diagnoses Diagnosis Non-small cell lung cancer, unspecified laterality documented in this encounter Care Teams Firebrick Layer Helper Relationship Specialty Start Date End Date America Caro MD [address] [place] [address] PCP - General Family Medicine 03/31/24 documented as of this encounter
--- OUTSIDE RECORDS SUMMARY | 2024-08-22 01:18 | XMS_ITS | Encounter Summary ---
Author Organization [facility] [place] [address] Care Team Providers Care Mixing Machine Tender Cork Gasket Name Role Phone America Caro MD Primary Care Provider [phone] Reason for Referral * Diagnostic Test (Routine) - Closed Specialty Diagnoses / Procedures Referred By Contac t Referred To Contact Radiology Diagnoses NSCLC of left lung Procedures MRI Brain wwo Contrast (Generic) Andrea Freeman MD [facility] [place] [address] [place] [address] Referral ID Status Reason Start Date Expiration Date V isits Requested Visits Authorized [id number] Closed Specialty Service Requested 05/01/2024 10/30/2025 1 1 Reason for Visit * Diagnostic Test (Routine) - Closed Specialty Diagnoses / Procedures Referred By Contac t Referred To Contact Radiology Diagnoses NSCLC of left lung Procedures MRI Brain wwo Contrast (Generic) Andrea Freeman MD [facility] [place] [address] [place] [address] Referral ID Status Reason Start Date Expiration Date V isits Requested Visits Authorized [id number] Closed Specialty Service Requested 05/01/2024 10/30/2025 1 1 Encounter Details Date Type Department Care Team (Latest Contact Info) Description 05/07/2024 7:41 AM EDT - 05/07/2024 11:59 PM EDT Hospital Encounter MRI at [facility] [place] [phone] Andrea Freeman MD [facility] [place] [address] NSCLC of left lung Discharge Disposition: Home Social History Tobacco Use Types Packs/Day Years Used Date Smoking Tobacco: Former Pipe Passive Smoke Exposure: Past Smokeless Tobacco: Never Comments:Smoke pipe for 10 y ears since 13 years old, Does still smoke pot but is slowing down. Passive Exposure Comments:Second hand smoke since 9138-7762 Alcohol Use Standard Drinks/Week Comments Yes 14 (1 standard drink = 0.6 oz pure alcohol) hardly any for the last month B1300 Health Literacy Answer Date Recor ded How often do you need to hav e someone help you when you read instructions, pamphlets, or other written material from your doctor or pharmacy? Never 05/04/2024 [facility] Utilities Answer Date Recorded In the [...] any time in the past 12 m [facility], were you homeless or living [...] Pain. 06/26/2024 documented as of this encounter Plan of Treatment Upcoming Encounters Date Type Department Care Team (Late st Contact Info) Description 08/22/2024 9:00 AM EST Infusion Hematology Oncology at [address] [address] 08/26/2024 11:30 AM EST Telephone [place] [phone] [facility] [place] [address] 09/11/2024 8:30 AM EST Laboratory Appointment Lab at [facility] Hematology Oncology [address] [place] [phone] 09/11/2024 9:30 AM EST Office Visit H[place]ology [place] [phone] Albania Chahal MD [facility] HEMATOLOGY/[place] [address] 09/11/2024 11:00 AM EST Appointment Hematology [place] [phone] 10/02/2024 7:45 AM EDT Laboratory Appointment Lab at [facility] Hematology Oncology [address] [place] [phone] 10/02/2024 9:[address] [place] [place] [phone] Albania Chahal MD [facility] HEMATOLOGY[place] [address] 10/02/2024 10:30 AM EDT Office Visit [place]ology [place] [address] Albania Chahal MD [facility] HEMATOLOGY/[place], [place] [phone] 10/02/2024 12:00 PM EDT Appointment [place]ology [place] [phone] documented as of this encounter Procedures Procedure Name Priority Date/Time Associated Diagnosis Comments MRI BRAIN WWO CONTRAST (GENERIC) Routine 05/07/2024 9:14 AM EDT NSCLC of left lung documented in this encounter Results * MRI Brain wwo Contrast (Generic) (05/07/2024 9:14 AM EDT) Pathologist [facility] WORKSTATION ID [id number] RAD Anatomical Region Laterality Modality Head Magnetic [...] who have questions please contact the health intensive care unit registered nurse that requested your imaging first. [...] patients who have questions please contactthe health intensive care unit registered nurse that requested your imaging first. [...] mLs documented in this encounter Care Teams Mixing Machine Tender Cork Gasket Relationship Specialty Start Date End Date America Caro MD [address] [place] [address] PCP - General Family Medicine 03/31/24 documented as of this encounter
--- OUTSIDE RECORDS SUMMARY | 2024-08-22 01:18 | XMS_ITS | Encounter Summary ---
[place] [address] Care Team Providers Care Geriatric Nurse Name Role Phone America Caro MD Primary Care Provider [phone] Encounter Details Date Type Department Care Team (Latest Contact Info) Description 05/06/2024 12:00 PM EDT Laboratory Appointment Lab at [facility] Hematology Oncology [address] [place] [phone] Non-small cell lung cancer, unspecified laterality Social History Tobacco Use Types Packs/Day Years Used Date Smoking Tobacco: Former Pipe Passive Smoke Exposure: Past Smokeless Tobacco: Never Comments:Smoke pipe for 10 y ears since 13 years old, Does still smoke pot but is slowing down. Passive Exposure Comments:Second hand smoke since 7183-2060 Alcohol Use Standard Drinks/Week Comments Yes 14 (1 standard drink = 0.6 oz pure alcohol) hardly any for the last month B1300 Health Literacy Answer Date Recor ded How often do you need to hav e someone help you when you read instructions, pamphlets, or other written material from your doctor or pharmacy? Never 05/04/2024 [facility] Utilities Answer Date Recorded In the past [...] AM EST Infusion Hematology Oncology at [address] [phone] 08/26/2024 11:30 AM EST Telephone [place] [phone] [facility] [place] [address] 09/11/2024 8:30 AM EST Laboratory Appointment Lab at [facility] Hematology Oncology [address] [place] [phone] 09/11/2024 9:30 AM EST Office Visit [place] [phone] Albania Chahal MD [facility] HEMATOLOGY/[place] [address] 09/11/2024 11:00 AM EST Appointment [place]ology [place] [address] 10/02/2024 7:45 AM EDT Laboratory Appointment Lab at [facility] Hematology Oncology [address] [place] [phone] 10/02/2024 9:[address] [place] [place] [phone] Albania Chahal MD [facility] [place] [address] 10/02/2024 10:30 AM EDT Office Visit Hematology [place] [phone] Albania Chahal MD [facility] [place]OLOG[place] [address] 10/02/2024 12:00 PM EDT Appointment [place]ology [place] [address] Pending Results Name Type Priority Associated Diagnoses [...] - 220 unit/L 05/06/2024 1:06 PM EDT [facility] Blood VENOUS BLOOD SPECIMEN / Unknown Venipuncture / Unknown 05/06/2024 12:15 PM EDT 05/06/2024 12:15 PM EDT Albania L Maicol Dutton MD CHEMISTRY ORDERA BLES [facility] [place] [address] * (ABNORMAL) Comprehensive metabolic panel Non-fasting (05/06/2024 12:15 PM EDT) Pathologist [facility] Glucose 97 65 - 199 mg/dL 05/06/2024 1:18 PM EDT [facility] Comment:Glucose Concentratio n >=200 mg/dL plus symptoms is consistent with Diabetes Mellitus. Blood Urea Nitrogen 19 10 - 20 mg/dL 05/06/2024 1:18 PM EDT [facility] Creatinine 0.79(L) 0.80 - 1.50 mg/dL 05/06/2024 1:18 PM EDT [facility] Sodium 133(L) 135 - 145 mMol/L 05/06/2024 1:18 PM EDT [facility] Potassium 4.9 3.5 - 5.0 mMol/L 05/06/2024 1:18 PM EDT [facility] Chloride 96(L) 98 - 107 mMol/L 05/06/2024 1:18 PM EDT [facility] Carbon Dioxide 27 22 - 31 mMol/L 05/06/2024 1:18 PM EDT [facility] Anion Gap 10 5 - 15 mMol/L 05/06/2024 1:18 PM EDT [facility] Calcium 9.8 8.5 - 10.5 mg/dL 05/06/2024 1:18 PM EDT [facility] Protein, Total 8.4(H) 6.1 - 8.0 g/dL 05/06/2024 1:18 PM EDT [facility] Albumin 3.9 3.2 - 5.2 g/dL 05/06/2024 1:18 PM EDT [facility] Aspartate Aminotransferase 33 <=39 unit/L 05/06/2024 1:18 PM EDT [facility] Alanine Aminotransferase 34 0 - 55 unit/L 05/06/2024 1:18 PM EDT [facility] Alkaline Phosphatase 265(H) 40 - 130 unit/L 05/06/2024 1:18 PM EDT [facility] Bilirubin, Total 0.4 <=1.3 mg/dL 05/06/2024 1:18 PM EDT [facility] Est Glomerular Filtration Rate - Male 96 mL/min/1. 73 m?? 05/06/2024 1:18 PM EDT [facility] Comment: This patient's estimated GFR [...] Fasting Status No 05/06/2024 1:18 PM EDT [facility] Blood VENOUS BLOOD SPECIMEN / Unknown Venipuncture / Unknown 05/06/2024 12:15 PM EDT 05/06/2024 12:15 PM EDT Albania Dutton MD CHEMISTRY ORDERA BLES [facility] [place] [address] * (ABNORMAL) CBC (with Diff) (05/06/2024 12:15 PM EDT) White Blood Cell 9.45 4.00 - 9.50 x10(3)/mc L 05/06/2024 12:33 PM [facility] Red Blood Cell 4.99 [...] 6.10 x10(3)/mc L 05/06/2024 12:33 PM EDT [facility] Lymph % 11.6 % 05/06/2024 12:33 PM EDT [facility] Lymph Absolute 1.10 0.90 - 3.20 x10(3)/mc L 05/06/2024 12:33 PM EDT [facility] Monocyte % 6.2 % 05/06/2024 12:33 PM EDT [facility] Monocyte Absolute 0.59 0.30 - 0.90 x10(3)/mc L 05/06/2024 12:33 PM EDT [facility] Eos % 0.2 % 05/06/2024 12:33 PM EDT [facility] Eos Absolute <0.04 0.00 - 0.40 x10(3)/mc L 05/06/2024 12:33 PM EDT [facility] Basophil % 0.4 % 05/06/2024 12:33 PM EDT [facility] Baso Absolute 0.04 0.00 - 0.10 x10(3)/mc L 05/06/2024 12:33 PM EDT [facility] Immature Gran % 0.5 % 12:33 PM EDT [facility] Immature Gran Absolute 0.05(H) 0.00 - 0.04 x10(3)/mc L 05/06/2024 12:33 PM EDT [facility] Blood VENOUS BLOOD SPECIMEN / Unknown Venipuncture / Unknown 05/06/2024 12:15 PM EDT 05/06/2024 12:15 PM EDT Albania Dutton MD HEMATOLOGY ORDER HERBERTH [facility] [place] [address] documented in this encounter Visit Diagnoses Diagnosis Non-small cell lung cancer, unspecified laterality documented in this encounter Care Teams Geriatric Nurse Relationship Specialty Start Date End Date America Caro MD [address] [place] [address] PCP - General Family Medicine 03/31/24 documented as of this encounter
--- OUTSIDE RECORDS SUMMARY | 2024-08-22 01:18 | XMS_ITS | Encounter Summary ---
[place] [address] Care Team Providers Care Crusher Loader Operator Name Role Phone America Caro MD Primary Care Provider [phone] Encounter Details Date Type Department Care Team (Late st Contact Info) Description 05/09/2024 Patient Outreach Hematology [place] [phone] Filemon Millan, RN Social History Tobacco Use Types Packs/Day Years Used Date Smoking Tobacco: Former Pipe Passive Smoke Exposure: Past Smokeless Tobacco: Never Comments:Smoke pipe for 10 y ears since 13 years old, Does still smoke pot but is slowing down. Passive Exposure Comments:Second hand smoke since 2761-4005 Alcohol Use Standard Drinks/Week Comments Yes 14 [...] in the past 12 m [facility], were you homeless or living [...] pericarditis vs cancer. 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 Zavala, at [facility] to discuss. He has an appointment scheduled for early June, but will work on moving that up and knows to call etcher printed circuit boards for assistance if he is unable to do so. documented in this encounter Plan of Treatment Upcoming Encounters Date Type Department Care Team (Late st Contact Info) Description 08/22/2024 9:00 AM EST Infusion Hematology Oncology at [address] [phone] 08/26/2024 11:30 AM EST Telephone Hematology [place] [address] Aniya Saab, [facility] [place] [address] 09/11/2024 8:30 AM EST Laboratory Appointment Lab at [facility] Hematology Oncology [address] [place], [place] [phone] 09/11/2024 9:30 AM EST Office Visit Hematology and Oncology at [place] [phone] Albania Chahal MD [facility] HEMATOLOGY[place] [address] 09/11/2024 11:00 AM EST Appointment Hematology [place] [phone] 10/02/2024 7:45 AM EDT Laboratory Appointment Lab at [facility] Hematology Oncology [address] [place] [phone] 10/02/2024 9:[address] Scan at [place] [phone] Albania Chahal MD [facility] HEMATOLOGY/[place] [address] 10/02/2024 10:30 AM EDT Office Visit Hematology [place] [address] Albania Chahal MD [facility] HEMATOLOGY[place] [address] 10/02/2024 12:00 PM EDT Appointment Hematology [place] [phone] documented as of this encounter Visit Diagnoses Not on filedocumented in this encounter Care Teams Crusher Loader Operator Relationship Specialty Start Date End Date America Caro MD [address] [place] [address] PCP - General Family Medicine 03/31/24 documented as of this encounter
--- OUTSIDE RECORDS SUMMARY | 2024-08-22 01:18 | XMS_ITS | Encounter Summary ---
Author Organization Formerly [facility] Address [facility] [place] [address] Care Team Providers Care Chore Worker Name Role Phone America Caro MD Primary Care Provider [phone] Encounter Details Date Type Department Care Team (Late st Contact Info) Description 04/24/2024 7:30 AM EDT - 04/24/2024 8:40 AM EDT [place] [address] BackerAndrea MD [facility] [place] [address] BRONCH, W ENDOBRONCHIAL ULTRASOUND (EBUS) GUIDED SAMPLING, 3+ NODES (WRVU 4.96) Social History Tobacco Use Types Packs/Day Years Used Date Smoking Tobacco: Former Pipe Passive Smoke Exposure: Past Smokeless Tobacco: Never Comments:Smoke pipe for 10 y ears since 13 years old, Does still smoke pot but is slowing down. Passive Exposure Comments:Second hand smoke since 0351-8671 Alcohol Use Standard Drinks/Week Comments Yes 14 [...] your doctor if you can take an mfvb-rel-vxahpcu medicine. If you think your pain medicine [...] more? Visit our health information library at [email or web address]. You can also view health information on [employer], your personal patient account. Log in or sign uptoday. Enter S288 in the search box to learn more about Bronchoscopy: What to Expect at Home. Current as of: December 22, 2018 Content Version: 12.2 ?? 5145-4016 [employer]. Care instructions adapted under license by [facility]. If you have questions about a medical condition or this instruction, always ask your healthcare professional. [employer] disclaims any warranty or liability for your [...] Section of Pulmonary & Critical Care Pager: [phone] documented in this encounter Miscellaneous Notes * [...] the procedure. Procedure Descriptions: Airway Examination: A ZarthCode EB-580S (5.3 mm) flexible bronchoscope was used [...] [see below]). . EBUS-TBNA (4 sites): The ZarthCode EBUS (EB-530US) scope was inserted, lymph node [...] Station 4L was <5 mm. Therapeutic Suctioning (52509): A significant portion of operative time was spent clearing out the airway of debris, blood and secretions prior to or during the intervention. Chest Ultrasound with Interpretation (55577/modifier 26): The patient was placed in a supine position and a bilateral lateral (limited) chest agygc-zv-oyrl ultrasound was performed. No pleural effusion was [...] Section of Pulmonary & Critical Care Pager: [phone] documented in this encounter Plan of Treatment Upcoming Encounters Date Type Department Care Team (Late st Contact Info) Description 08/22/2024 9:00 AM EST Infusion Hematology Oncology at [address] [address] 08/26/2024 11:30 AM EST Telephone Hemat[place] [address] Aniya Saab, KE[place]ON [facility] [place] [place] [address] 09/11/2024 8:30 AM EST Laboratory Appointment Lab at [facility] Hematology Oncology [address] [place] [phone] 09/11/2024 9:30 AM EST Office Visit Hematology and Oncology at [place] [phone] Albania Chahal MD [facility] HEMATOLOGY/[place] [address] 09/11/2024 11:00 AM EST Appointment Hematology [place] [address] 10/02/2024 7:45 AM EDT Laboratory Appointment Lab at [facility] Hematology Oncology [address] [place] [phone] 10/02/2024 9:[address] [place] [place] [address] Albania Chahal MD [facility] HEMATOLOGY/[place] [address] 10/02/2024 10:30 AM EDT Office Visit [place] [address] Albania Chahal MD [facility] HEMATOLOGY[place] [address] 10/02/2024 12:00 PM EDT Appointment [place]ology [place] [address] documented as of this encounter Procedures Procedure [...] THAN THYROID Routine 04/24/2024 8:[address] [facility] Guided Sampl 3/> Node Station/Strux (34106) 04/24/2024 7:37 AM EDT Lymphadenopathy documented in this encounter Results * (ABNORMAL) Cytology FNA (04/24/2024 8:22 AM EDT) Case Report Medical Cytology Report ? Case: [id number] ? Authorizing Provider: ??Andrea Freeman MD ? Collected: ? 04/24/2024821 ? Ordering Location: ? Gastroenterology at [facility] ?? Received: ?04/24/202443 ? Pathologist: ? Kedar Connor MD ? Specimen: ?Lung, Left Lower Lobe ? 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 Cell block was examined. See note. Note: The malignant cells have high nuclear to cytoplasmic ratios, hyperchromatic chromatin and occasional nucleoli and pseudoinclusions. By immunohistochemistry they show strong expression for keratin ([id number]) and squamous markers (p40, CK5) with patchy, [...] The assay was performed according to the milk house worker's instructions using Anti-PD-L1 (22C3, pharmDX) antibody. 4 10:07 AM [facility] Addendum electronically signed by Kedar Connor MD on 05/14/2024 at 1:14 PM Additional Studies Task ID IHC/Special Stains Result A1-2 TTF1 Negative A1-3 p40 Positive A1-4 Synaptophysin Rare, weak positive A1-5 INSM1 Patchy positive A1-6 CD45 Negative A1-7 Ki-67 Positive >70% A1-8 [id number] Positive A1-9 RB1 Rare positive A1-10 Chromogranin [...] histopathological criteria and other diagnostic tests. 4 10:07 AM [facility] Clinical Information 68 y.o with mediastinal mass 10:07 AM [facility] Gross Description Received in formalin, approximately 20 mL total volume of cloudy, red fluid with clots. Total preparation: Cell Block: 1. 4 10:07 AM [facility] Result Note THIS RESULT REQUIR ES PHYSICIAN/MARVIN FOLLOW UP(A) 10:07 AM EST [facility] Fine Needle Aspirate STRUCTURE OF LOWER LOBE OF LEFT LUNG / Unknown Non Blood Collection / Unknown 04/24/2024 8:22 AM EDT 04/24/2024 8:43 AM EDT Andrea Freeman MD PATHOLOGY/CYTOLOGY O RDERABLES [facility] [place] [address] * (ABNORMAL) Cytology FNA (04/24/2024 8:22 AM EDT) Case Report Medical Cytology Report ? Case: [id number] ? Authorizing Provider: ??Andrea Freeman MD ? Collected: ? 04/24/2024821 ? Ordering Location: ? Gastroenterology at [facility] ?? Received: ?04/24/202443 ? Pathologist: ? Kedar Connor MD ? Specimen: ?Lymph Node, Station 7 ? 05/01/2024 12:53 PM EDT [facility] Specimen Source Lymph Node, Station 7, EBUS-guided FNA 05/01/2024 12:53 PM EDT [facility] Final Diagnosis Positive for malignancy 05/01/2024 12:53 PM EDT [facility] Diagnosis Discussion Poorly differentiated carcinoma. See [id number] for complete characterization. Cell block was examined. 05/01/2024 12:53 PM EDT [facility] Specimen Adequacy Satisfactory for evaluation. 05/01/2024 12:53 PM EDT [facility] Clinical Information 68 y.o with mediastinal mass 05/01/2024 12:53 PM EDT [facility] Gross Description Received in formalin, approximately 20 mL total volume of cloudy, pink fluid with clots. Total preparation: Cell Block: 1. 05/01/2024 12:53 PM EDT [facility] Result Note THIS RESULT REQUIRES PHYSICIAN/MARVIN FOLLOW UP(A) 05/01/2024 12:53 PM EDT [facility] Fine Needle Aspirate (Lymph Node, Station 7) Non Blood Collection / Unknown 04/24/2024 8:22 AM EDT 04/24/2024 8:43 AM EDT Andrea Freeman MD PATHOLOGY/CYTOLOGY O RDERABLES Performing Organization Address City/State/[facility] Co de Phone Number [facility] [place] [address] * (ABNORMAL) Cytology FNA (04/24/2024 8:22 AM EDT) Case Report Medical Cytology Report ? Case: [id number] ? Authorizing Provider: ??Andrea Freeman MD ? Collected: ? 04/24/2024 0822 ? Ordering Location: ? Gastroenterology at [facility] ?? Received: ?04/24/2024 0845 ? Pathologist: ? Kedar Connor MD ? Specimen: ?Lymph Node, Station 4R ? 05/01/2024 12:57 PM EDT [facility] Specimen Source Lymph Node, Station 4R, EBUS-guided FNA 05/01/2024 12:57 PM EDT [facility] Final Diagnosis Suspicious for malignancy 05/01/2024 12:57 PM T [facility] Diagnosis Discussion There is a single cluster of highly atypical epithelioid cells which are morphologically similar to the malignant cells see in [id number]. The background contains lymphoid tissue. Cell block was examined. 05/01/2024 12:57 PM EDT [facility] Specimen Adequacy Satisfactory for evaluation. 05/01/2024 12:57 PM EDT [facility] Clinical Information 68 y.o with mediastinal mass 05/01/2024 12:57 PM EDT [facility] Gross Description Received in formalin, approximately 25 mL total volume of clear, pink fluid with clots. Total preparation: Cell Block: 1. 05/01/2024 12:57 PM T [facility] Result Note THIS RESULT REQUIRES PHYSICIAN/MARVIN FOLLOW UP(A) 05/01/2024 12:57 PM EDT [facility] Fine Needle Aspirate (Lymph Node, Station 4R) Non Blood Collection / Unknown 04/24/2024 8:22 AM EDT 04/24/2024 8:45 AM EDT Andrea Freeman MD PATHOLOGY/CYTOLOGY O RDERABLES [facility] [place] [address] * Cytology FNA (04/24/2024 8:22 AM EDT) Case Report Medical Cytology Report ? Case: [id number] ? Authorizing Provider: ??Andrea Freeman MD ? Collected: ? 04/24/2024821 ? Ordering Location: ? Gastroenterology at [facility] ?? Received: ?04/24/202444 ? Pathologist: ? Kedar Connor MD ? Specimen: ?Lymph Node, Station 11R ? 05/01/2024 12:54 PM EDT [facility] Specimen Source Lymph Node, Station 11R, EBUS-guided FNA 05/01/2024 12:54 PM EDT [facility] Final Diagnosis Negative for malignancy 05/01/2024 12:54 PM EDT [facility] Diagnosis Discussion Consistent with benign lymph node sampling. Cell block was examined. 05/01/2024 12:54 PM EDT [facility] Specimen Adequacy Satisfactory for evaluation. 05/01/2024 12:54 PM EDT [facility] Clinical Information 68 y.o with mediastinal mass 05/01/2024 12:54 PM EDT [facility] Gross Description Received in formalin, approximately 20 mL total volume of cloudy, red fluid with clots. Total preparation: Cell Block: 1. 05/01/2024 12:54 PM EDT [facility] Result Note Routine 05/01/2024 12:54 PM EDT [facility] Fine Needle Aspirate (Lymph Node, Station 11R) Non Blood Collection / Unknown 04/24/2024 8:22 AM EDT 04/24/2024 8:44 AM EDT Andrea Freeman MD PATHOLOGY/CYTOLOGY O RDERABLES [facility] [place] [address] * Immunophenotyping Flow Cytometry (04/24/2024 8:22 AM EDT) Final Diagnosis - No phenotypically abnormal T-cell population detected, limited number of B-cells for assessment (see Comment). 04/25/2024 11:54 AM EDT [facility] Signing Pathologist This result has been reviewed by Misbah Hand DO on 04/25/24 at 11:54 AM. 04/25/2024 11:54 AM EDT [facility] Discussion Flow cytometry does not detect certain hematolymphoid malignancies and non-hematolymphoid malignancies. Correlation with pending morphology from the biopsy is recommended. 04/25/2024 11:[address] [facility] Interpretation B-cells were less than 30 in number, too few for adequate assessment. 04/25/2024 11:[address] [facility] Lymphocyte % 15.0 % 04/25/2024 11:[address] [facility] CD3+ % 52.0 % 04/25/2024 11:[address] [facility] CD19+ % 1.0 % 04/25/2024 11:[address] [facility] CD56+ % 43.0 % 04/25/2024 11:[address] [facility] B-Cell:T-Cell Ratio 0.0 04/25/2024 11:[address] [facility] [place]:Lambda Ratio 1.6 04/25/2024 11:[address] [facility] CD4:CD8 Ratio 1.0 04/25/2024 11:[address] [facility] Cell Viability % 68.2 % 04/25/20 11:[address] [facility] Specimen Processing Cells for immunophenotypic analysis were derived from lung fine needle biopsy. The following markers were assessed: CD2, CD3, CD4, CD5, CD7, CD8, CD10, CD19, CD45, CD56, kappa light chain, and lambda light chain. 04/25/2024 11:[address] [facility] Disclaimer Flow analysis is an ancillary study. A definite diagnosis requires correlation with the morphologic features of this process and if necessary, correlation with other ancillary studies like immunohistochemist ry, enzyme cytochemistry and/or cyto/molecular genetics. This test was developed and its performance characteristics determined by the Clinical Flow Cytometry Laboratory at [facility]. It has not been cleared [...] clinical laboratory testing. 04/25/2024 11:54 AM EDT [facility] Clinical Information Lung nodules 04/25/2024 11:54 AM EDT [facility] Fine Needle Aspirate STRUCTURE OF LOWER LOBE OF LEFT LUNG / Unknown Non Blood Collection / Unknown 04/24/2024 8:22 AM EDT 04/24/2024 8:42 AM EDT Andrea Freeman MD HEMATOLOGY ORDERABLE S [facility] [place] [address] documented in this encounter Visit Diagnoses Diagnosis [...] CRNA) documented in this encounter Care Teams Chore Worker Relationship Specialty Start Date End Date America Caro MD [address] [place] [address] PCP - General Family Medicine 03/31/24 documented as of this encounter
--- OUTSIDE RECORDS SUMMARY | 2024-08-22 01:18 | XMS_ITS | Encounter Summary ---
[place] [address] Care Team Providers Care Oriental Rug Stretcher Name Role Phone America Caro MD Primary Care Provider [phone] Encounter Details Date Type Department Care Team (Late st Contact Info) Description 05/06/2024 Notes Only Hematology [place] [phone] Olga Ceballos RN Social History Tobacco Use Types Packs/Day Years Used Date Smoking Tobacco: Former Pipe Passive Smoke Exposure: Past Smokeless Tobacco: Never Comments:Smoke pipe for 10 y ears since 13 years old, Does still smoke pot but is slowing down. Passive Exposure Comments:Second hand smoke since 9381-9072 Alcohol Use Standard Drinks/Week Comments Yes 14 [...] any time in the past 12 m [facility], were you homeless or living in a jail (including now)? No 05/04/2024 Sex and Gender Information Value Date Recorded Sex Assigned at Not on file Gender Identity Not on file Sexual Orientation Not on file documented as of this encounter Progress Notes * Olga Ceballos RN - 05/06/2024 12:48 PM EDT Test requisition form, pt demographics/insurance and lab specimens collected and shipped to [facility]. FedEx: [id number]. documented in this encounter Plan of Treatment Upcoming Encounters Date Type Department Care Team (Late st Contact Info) Description 08/22/2024 9:00 AM EST Infusion Hematology Oncology at [address] [address] 08/26/2024 11:30 AM EST Telephone Hematology [place] [phone] Aniya Saab, KE[place]ON [facility] [place] [address] 09/11/2024 8:30 AM EST Laboratory Appointment Lab at [facility] Hematology Oncology [address] [place] [phone] 09/11/2024 9:30 AM EST Office Visit Hematology [place] [address] Albania Chahal MD [facility] HEMATOLOGY/[place] [address] 09/11/2024 11:00 AM EST Appointment Hematology [place] [address] 10/02/2024 7:45 AM EDT Laboratory Appointment Lab at [facility] Hematology Oncology [address] [place] [phone] 10/02/2024 9:[address] [place] [address] Albania Chahal MD [facility] [place]EMATOLOGY/[place] [address] 10/02/2024 10:30 AM EDT Office Visit Hematology [place] [address] Albania Chahal MD [facility] [place]ATOLOG[place] [address] 10/02/2024 12:00 PM EDT Appointment Hematology [place] [address] documented as of this encounter Visit Diagnoses Not on filedocumented in this encounter Care Teams Oriental Rug Stretcher Relationship Specialty Start Date End Date America Caro MD [address] [place] [address] PCP - General Family Medicine 03/31/24 documented as of this encounter
--- OUTSIDE RECORDS SUMMARY | 2024-08-22 01:18 | XMS_ITS | Encounter Summary ---
Author Organization [facility] [place] [address] Care Team Providers Care Disability Manager Name Role Phone America Caro MD Primary Care Provider [phone] Encounter Details Date Type Department Care Team (Late Contact Info) Description 04/22/2024 Telephone [place] [phone] Kaela Zayas Social History Tobacco Use Types Packs/Day Years Used Date Smoking Tobacco: Former Pipe Passive Smoke Exposure: Past Smokeless Tobacco: Never Comments:Smoke pipe for 10 y ears since 13 years old, Does still smoke pot but is slowing down. Passive Exposure Comments:Second hand smoke since 6331-9013 Sex and Gender Information Value Date Recorded Sex Assigned at Not on file Gender Identity Not on file Sexual Orientation Not on file documented as of this encounter Plan of Treatment Upcoming Encounters Date Type Department Care Team ([facility] Contact Info) Description 08/22/2024 9:00 AM EST Infusion Hematology Oncology at [address] [phone] 08/26/2024 11:30 AM EST Telephone Hematology [place] [address] [facility] [place] [place] [address] 09/11/2024 8:30 AM EST Laboratory Appointment Lab at [facility] Hematology Oncology [address] [place] [phone] 09/11/2024 9:30 AM EST Office Visit Hematology [place] [address] Albania Chahal MD [facility] HEMATOLOGY/[place] [address] 09/11/2024 11:00 AM EST Appointment Hematology and Oncology at [place] [phone] 10/02/2024 7:45 AM EDT Laboratory Appointment Lab at [facility] Hematology Oncology [address] [place] [phone] 10/02/2024 9:[address] Scan at [place] [phone] Albania Chahal MD [facility] HEMATOLOGY/[place] [address] 10/02/2024 10:30 AM EDT Office Visit Hematology [place] [address] Albania Chahal MD [facility] HEMATOLOGY[place] [address] 10/02/2024 12:00 PM EDT Appointment Hematology and Oncology at [place] [phone] documented as of this encounter Visit Diagnoses Not on filedocumented in this encounter Care Teams Disability Manager Relationship Specialty Start Date End Date America Caro MD [address] [place] [address] PCP - General Family Medicine 03/31/24 documented as of this encounter
--- OUTSIDE RECORDS SUMMARY | 2024-08-22 01:18 | XMS_ITS | Encounter Summary ---
[place] [address] Care Team Providers Care Antenna Design Engineer Name Role Phone America Caro MD Primary Care Provider [phone] Encounter Details Date Type Department Care Team (Late st Contact Info) Description 05/09/2024 Notes [place] [phone] Anna Reed Social History Tobacco Use Types Packs/Day Years Used Date Smoking Tobacco: Former Pipe Passive Smoke Exposure: Past Smokeless Tobacco: Never Comments:Smoke pipe for 10 y ears since 13 years old, Does still smoke pot but is slowing down. Passive Exposure Comments:Second hand smoke since 8165-7722 Alcohol Use Standard Drinks/Week Comments Yes 14 [...] the reminder 20% as long as the tlm-ts-pvfbpq maximum has been met. The patient was also advised that [employer] has previously done away with the qe-zy-cpstiv maximum for ret iree patients. Financial Assistance [...] AM EST Infusion Hematology Oncology at [address] [phone] 08/26/2024 11:30 AM EST Telephone Hematology [place] [phone] Aniya Saab, [place] [facility] [place] [address] 09/11/2024 8:30 AM EST Laboratory Appointment Lab at [facility] Hematology Oncology [address] [place] [phone] 09/11/2024 9:30 AM EST Office Visit Hematology and Oncology at [place] [phone] Albania Chahal MD [facility] HEMATOLOGY[place] [address] 09/11/2024 11:00 AM EST Appointment Hematology [place] [phone] 10/02/2024 7:45 AM EDT Laboratory Appointment Lab at [facility] Hematology Oncology [address] [place] [phone] 10/02/2024 9:[address] [place] [phone] Albania Chahal MD [facility] HEMATOLOGY/[place] [address] 10/02/2024 10:30 AM EDT Office Visit Hematology [place] [phone] Albania Chahal MD [facility] HEMATOLOGY/[place] [address] 10/02/2024 12:00 PM EDT Appointment Hematology [place] [address] documented as of this encounter Visit Diagnoses Not on filedocumented in this encounter Care Teams Antenna Design Engineer Relationship Specialty Start Date End Date America Caro MD [address] [place] [address] PCP - General Family Medicine 03/31/24 documented as of this encounter
--- OUTSIDE RECORDS SUMMARY | 2024-08-22 01:18 | XMS_ITS | Encounter Summary ---
[place] [address] Care Team Providers Care Supervisor Cloth Winding Name Role Phone America Caro MD Primary Care Provider [phone] Reason for Visit * Reason Onset Date Comments Establish Care 05/06/2024 Encounter Details Date Type Department Care Team (Late st Contact Info) Description 05/06/2024 Patient Outreach Hematology [place] [phone] Filemon Millan, RN Establish Care Social History Tobacco Use Types Packs/Day Years Used Date Smoking Tobacco: Former Pipe Passive Smoke Exposure: Past Smokeless Tobacco: Never Comments:Smoke pipe for 10 y ears since 13 years old, Does still smoke pot but is slowing down. Passive Exposure Comments:Second hand smoke since 1850-6460 Alcohol Use Standard Drinks/Week Comments Yes 14 [...] Millan RN - 05/06/2024 1:54 PM EDT [facility] Oncology Nurse Navigation Patient Intake & Care Plan Met with Henry Gary Concepcion 'Adams' a 68 y.o. diagnosed with non-small cell lung cancer to assess for nurse navigation services. Introduced the role of Thoracic Navigator as a point of contact for communication between different disciplines and a environmental marketer of timely access to care and resources. [...] may years ago, but since moving to [place] has been a heavy marijuana smoker. He recently switched to edibles. Lifestyle/Living arrangements/Social: Adams lives in [place], [place]. He has a bird dog who has a lot of energy and keeps Bill active. He moved to [place] from [place] 5 years ago. He is very close with his nephew and family who live nearby, and has some good friends and neighbors. In his free time Adams does some bird hunting and plays iris music on the flute and accordion. Transportation: Adams is closer to [facility] but is also fine driving to [place] for some treatment. He will see how things go and decide. 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 Medicare and [employer] insurance. Gave patient navigator contact information, advised to call for assistance coordinating care or with any questions or concerns. Outlined main ancillary services available to help support patient, including Social Work, Palliative Care, Psycho Onc, Nutrition and PT. Patient prefers treatment in [facility] or [place]. PLAN: [employer] [address] chest in [facility] for treatment PDL1 pending ONN to follow Thoracic Oncology Nurse Navigator is ALEXANDR Weldon, RN. documented in this encounter Plan of Treatment Upcoming Encounters Date Type Department Care Team (Late st Contact Info) Description 08/22/2024 9:00 AM EST Infusion Hematology Oncology at [address] [phone] 08/26/2024 11:30 AM EST Telephone Hematology [place] [address] [facility] [place] [address] 09/11/2024 8:30 AM EST Laboratory Appointment Lab at [facility] [place] Hematology Oncology [address] [place] [phone] 09/11/2024 9:30 AM EST Office Visit Hematology [place] [phone] Albania Chahal MD [facility] HEMATOLOGY/[place] [address] 09/11/2024 11:00 AM EST Appointment Hematology and Oncology at [place] [phone] 10/02/2024 7:45 AM EDT Laboratory Appointment Lab at [facility] [place] Hematology Oncology [address] [place] [phone] 10/02/2024 9:[address] Scan at [place] [phone] Albania Chahal MD [facility] HEMATOLOGY/[place] [address] 10/02/2024 10:30 AM EDT Office Visit Hematology and Oncology at [place] [phone] Albania Chahal MD [facility] HEMATOLOGY/[place] [address] 10/02/2024 12:00 PM EDT Appointment Hematology and Oncology at [place] [phone] documented as of this encounter Visit Diagnoses Not on filedocumented in this encounter Care Teams Supervisor Cloth Winding Relationship Specialty Start Date End Date America Caro MD [address] [place] [address] PCP - General Family Medicine 03/31/24 documented as of this encounter
--- OUTSIDE RECORDS SUMMARY | 2024-08-22 01:18 | XMS_ITS | Encounter Summary ---
[place] [address] Care Team Providers Care Package Delivery Driver Name Role Phone America Caro MD Primary Care Provider [phone] Encounter Details Date Type Department Care Team (Latest Contact Info) Description 05/15/2024 8:15 AM EDT Laboratory Appointment [place] [facility] [address] [place] [phone] Non-small cell lung cancer, unspecified laterality; Medication management Social History Tobacco Use Types Packs/Day Years Used Date Smoking Tobacco: Former Pipe Passive Smoke Exposure: Past Smokeless Tobacco: Never Comments:Smoke pipe for 10 y ears since 13 years old, Does still smoke pot but is slowing down. Passive Exposure Comments:Second hand smoke since 7036-1267 Alcohol Use Standard Drinks/Week Comments Yes 14 (1 standard drink = 0.6 oz pure alcohol) hardly any for the last month B1300 Health Literacy Answer Date Recor ded How often do you need to hav e someone help you when you read instructions, pamphlets, or other written material from your doctor or pharmacy? Never 05/04/2024 [facility] Utilities Answer Date Recorded In the [...] AM EST Infusion Hematology Oncology at [address] [phone] 08/26/2024 11:30 AM EST Telephone Hematology [place] [phone] [facility] [place] [address] 09/11/2024 8:30 AM EST Laboratory Appointment Lab [place] [facility] [address] [place] [phone] 09/11/2024 9:30 AM EST Office Visit Hematology [place] [phone] Albania Chahal MD [facility] HEMATOLOGY/[place] [address] 09/11/2024 11:00 AM EST Appointment Hematology [place] [phone] 10/02/2024 7:45 AM EDT Laboratory Appointment Lab at [facility] [place] [address] [place] [phone] 10/02/2024 9:[address] [place] [phone] Albaina Chahal MD [facility] HEMATOLOGY/[place] [address] 10/02/2024 10:30 AM EDT Office Visit Hematology [place] [phone] Albania Chahal MD [facility] HEMATOLOGY[place] [address] 10/02/2024 12:00 PM EDT Appointment Hematology [place] [phone] Pending Results Name Type Priority Associated Diagnoses [...] - 9.50 x10(3)/mc L 05/15/2024 8:19 AM [facility] Red Blood Cell 4.73 4.58 - 5.54 x10(6)/mc L 05/15/2024 8:19 AM [facility] Hemoglobin 12.0(L) 13.7 - 16.5 g/dL 05/15/2024 8:19 AM [facility] Hematocrit 38.4(L) 40.5 - 48.5 % 05/15/2024 8:19 AM [facility] Mean Cell Volume 81.2(L) 82.9 - 93.1 fL 05/15/2024 8:19 AM [facility] Mean Cell Hemoglobin 25.4(L) 27.5 - 32.1 pg 05/15/2024 8:19 AM [facility] Mean Cell Hemoglobin Concentration 31.3(L) 32.0 - 35.7 g/dL 05/15/2024 8:19 AM [facility] Platelet 628(H) 145 - 357 x10(3)/mc L 05/15/2024 8:19 AM [facility] Mean Platelet Volume 8.5 7.6 - 12.9 fL 05/15/2024 8:19 AM [facility] RDW Standard Deviation 47.0(H) 36.0 - 45.0 fL 05/15/2024 8:19 AM [facility] RDW coefficient of variation 15.9(H) 11.4 - 13.8 % 05/15/2024 8:19 AM [facility] NRBC% auto 0.0 % 05/15/2024 8:19 AM [facility] NRBC Absolute <0.01 <0.01 x10(3)/mc L 05/15/2024 8:19 AM [facility] Neutrophil % 75.6 % 05/15/2024 8:19 AM [facility] Neutrophil Absolute (ANC) - Automated 5.46 1.70 - 6.10 x10(3)/mc L 05/15/2024 8:19 AM [facility] Lymph % 15.4 % 05/15/2024 8:19 AM [facility] Lymph Absolute 1.11 0.90 - 3.20 x10(3)/mc L 05/15/2024 8:19 AM [facility] Monocyte % 7.6 % 05/15/2024 8:19 AM [facility] Monocyte Absolute 0.55 0.30 - 0.90 x10(3)/mc L 05/15/2024 8:19 AM [facility] Eos % 0.7 % 05/15/2024 8:19 AM [facility] Eos Absolute 0.05 0.00 - 0.40 x10(3)/mc L 05/15/2024 8:19 AM [facility] Basophil % 0.3 % 05/15/2024 8:19 AM [facility] Baso Absolute <0.04 0.00 - 0.10 x10(3)/mc L 05/15/2024 8:19 AM [facility] Immature Gran % 0.4 % 8:19 AM [facility] Immature Gran Absolute <0.04 0.00 - 0.04 x10(3)/mc L 05/15/2024 8:19 AM [facility] Blood VENOUS BLOOD SPECIMEN / Unknown Venipuncture / Unknown 05/15/2024 8:03 AM EDT 05/15/2024 8:03 AM EDT Narrative Authorizing Provider Result Levi Dutton MD HEMATOLOGY ORDER [facility]BER[facility] [place] [address] * (ABNORMAL) Comprehensive metabolic panel Non-fasting (05/15/2024 8:03 AM EDT) Glucose 84 65 - 199 mg/dL 05/15/2024 8:52 AM EDT [facility] Comment:Glucose Concentratio n >=200 mg/dL plus symptoms is consistent with Diabetes Mellitus. Blood Urea Nitrogen 17 10 - 20 mg/dL 05/15/2024 8:52 AM EDT [facility] Creatinine 0.83 0.80 - 1.50 mg/dL 05/15/2024 8:52 AM EDT [facility] Sodium 137 135 - 145 mMol/L 05/15/2024 8:52 AM EDT [facility] Potassium 4.6 3.5 - 5.0 mMol/L 05/15/2024 8:52 AM [facility] Chloride 100 98 - 107 mMol/L 05/15/2024 8:52 AM [facility] Carbon Dioxide 30 22 - 31 mMol/L 05/15/2024 8:[facility] Anion Gap 7 5 - 15 mMol/L 05/15/2024 8:52 AM [facility] Calcium 9.9 8.5 - 10.5 mg/dL 05/15/2024 8:[facility] Protein, Total 7.9 6.1 - 8.0 g/dL 05/15/2024 8:52 AM [facility] Albumin 3.6 3.2 - 5.2 g/dL 05/15/2024 8:52 [facility] Aspartate Aminotransferase 41(H) <=39 unit/L 05/15/2024 8:52 AM EDT [facility] Alanine Aminotransferase 54 0 - 55 unit/L 05/15/2024 8:52 AM EDT [facility] Alkaline Phosphatase 225(H) 40 - 130 unit/L 05/15/2024 8:52 AM EDT [facility] Bilirubin, Total 0.3 <=1.3 mg/dL 05/15/2024 8:52 AM EDT [facility] Est Glomerular Filtration Rate - Male 94 mL/min/1. 73 m?? 05/15/2024 8:52 AM EDT [facility] Comment: This patient's estimated GFR [...] Fasting Status No 05/15/2024 8:52 AM EDT [facility] Blood VENOUS BLOOD SPECIMEN / Unknown Venipuncture / Unknown 05/15/2024 8:03 AM EDT 05/15/2024 8:03 AM EDT Albania Dutton MD CHEMISTRY ORDERA BLES [facility] [place] [address] * (ABNORMAL) Lactate Dehydrogenase (05/15/2024 8:03 AM EDT) Lactate Dehydrogenase 270(H) 110 - 220 unit/L 05/15/2024 8:52 AM EDT [facility] Blood VENOUS BLOOD SPECIMEN / Unknown Venipuncture / Unknown 05/15/2024 8:03 AM EDT 05/15/2024 8:03 AM EDT Albania Dutton MD CHEMISTRY ORDERA BLES Performing Organization Address [facility]/ZIP Co de Phone Number [facility] [place] [address] * (ABNORMAL) TSH (05/15/2024 8:03 AM EDT) Thyroid Stimulating Hormone 6.83(H) 0.27 - 4.20 mcIU/mL 05/15/2024 8:52 AM EDT [facility] Blood VENOUS BLOOD SPECIMEN / Unknown Venipuncture / Unknown 05/15/2024 8:03 AM EDT 05/15/2024 8:03 AM EDT Albania Dutton MD CHEMISTRY ORDERA BLES Performing Organization Address [facility] Co de Phone Number [facility] [place] [address] * T4, free (05/15/2024 8:03 AM EDT) Free T4 1.08 0.93 - 1.70 ng/dL 05/15/2024 8:52 AM EDT [facility] Blood VENOUS BLOOD SPECIMEN / Unknown Venipuncture / Unknown 05/15/2024 8:03 AM EDT 05/15/2024 8:03 AM EDT Albania Dutton MD CHEMISTRY ORDERA BLES Performing Organization Address City/[facility]/ZIP Co de Phone Number [facility] [place] [address] documented in this encounter Visit Diagnoses Diagnosis Non-small cell lung cancer, unspecified laterality Medication management Encounter for long-term (current) use of other medications documented in this encounter Care Teams Package Delivery Driver Relationship Specialty Start Date End Date America Caro MD [address] [place] [address] PCP - General Family Medicine 03/31/24 documented as of this encounter
--- OUTSIDE RECORDS SUMMARY | 2024-08-22 01:18 | XMS_ITS | Encounter Summary ---
Author Organization [facility] Address [facility] [place] [address] Care Team Providers Care Hospital Liaison Name Role Phone America Caro MD Primary Care Provider [phone] Encounter Details Date Type Department Care Team (Late st Contact Info) Description 04/24/2024 7:37 AM EDT Anesthesia [place] [address] Radha Arhsad MD [facility] [place] [address] Anesthesia Record Procedure Summary Procedure Name Responsible [...] Type Details Placement Removal PIV 04/24/24; 721; krta-pmy-nixruy catheter system; 20 gauge; median cubital vein [...] Dalton CRNA 04/24/24 08 by Joann Dalton WHEEL TRUER documented in this encounter Social History Tobacco Use Types Packs/Day Years Used Date Smoking Tobacco: Former Pipe Passive Smoke Exposure: Past Smokeless Tobacco: Never Comments:Smoke pipe for 10 y ears since 13 years old, Does still smoke pot but is slowing down. Passive Exposure Comments:Second hand smoke since 0360-9897 Alcohol Use Standard Drinks/Week Comments Yes 14 [...] Procedure Summary Date: 04/24/24 Room / Location: [facility] ENDO 1 / [facility] ENDOSCOPY Anesthesia Start: 736 Anesthesia Stop: 838 Procedure: BRONCH, W ENDOBRONCHIAL ULTRASOUND (EBUS) GUIDED SAMPLING, 3+ NODES (WRVU 4.96) Diagnosis: Lymphadenopathy (Lymphadenopathy/ Bronch with EBUS/ GA/ Bakcer) Surgeons: Andrea Freeman MD Responsible Provider: Radha Arshad MD Anesthesia Type: general ASA Status: 3 All Anesthesia Providers: Anesthesiologist: Radha Arshad MD WHEEL TRUER: Joann Dalton CRNA Vitals Value Taken Time BP 89/61 04/24/24 0900 Temp 36.4 ??C (97.5 ??F) 04/24/24 0835 Pulse Resp 20 04/24/24 0850 SpO2 92 % 04/24/24 0906 Pain Level 0 04/24/24 0850 Vitals shown include unfiled device data. Patient Location: PACU/[facility] Level of Consciousness: Awake and [...] Passive exposure: Past (Second hand smoke since 1861-1826) Smokeless tobacco: Never Tobacco comments: Smoke pipe [...] proceed. Radha Arshad MD Attending Anesthesiologist Pager [phone] 04/24/24 Informed Consent: Anesthetic plan and risks discussed with patient. Plan discussed with WHEEL TRUER and attending. Anesthesia Screening documented in this encounter Plan of Treatment Upcoming Encounters Date Type Department Care Team (Late st Contact Info) Description 08/22/2024 9:00 AM EST Infusion Hematology Oncology at [address] [phone] 08/26/2024 11:30 AM EST Telephone [place] [phone] [facility] [place] [address] 09/11/2024 8:30 AM EST Laboratory Appointment Lab at [facility] Hematology Oncology [address] [place] [phone] 09/11/2024 9:30 AM EST Office Visit Hematology and Oncology at [place] [phone] Albania Chahal MD [facility] HEMATOLOGY/[place] [address] 09/11/2024 11:00 AM EST Appointment Hematology [place] [phone] 10/02/2024 7:45 AM EDT Laboratory Appointment Lab at [facility] Hematology Oncology [address] [place] [phone] 10/02/2024 9:[address] [place] [place] [phone] Albania Chahal MD [facility] HEMATOLOGY/[place] [address] 10/02/2024 10:30 AM EDT Office Visit [place]ology [place] [phone] Albania Chahal MD [facility] HEMATOLOGY/[place] [address] 10/02/2024 12:00 PM EDT Appointment [place]ology [place] [phone] documented as of this encounter [...] mg documented in this encounter Care Teams Hospital Liaison Relationship Specialty Start Date End Date America Caro MD [address] [place] [address] PCP - General Family Medicine 03/31/24 documented as of this encounter
--- OUTSIDE RECORDS SUMMARY | 2024-08-22 01:18 | XMS_ITS | Encounter Summary ---
Author Organization [facility] Address [facility] [place] [address] Care Team Providers Care Face Man Name Role Phone America Caor MD Primary Care Provider Encounter Details Date Type Department Care Team (Late st Contact Info) Description 05/12/2024 Orders Only [place]ematology [place] [address] Albania Chahal MD [facility] DR HEMATOLOGY/[place] [address] Non-small cell cancer of left lung Social History Tobacco Use Types Packs/Day Years Used Date Smoking Tobacco: Former Pipe Passive Smoke Exposure: Past Smokeless Tobacco: Never Comments:Smoke pipe for 10 y ears since 13 years old, Does still smoke pot but is slowing down. Passive Exposure Comments:Second hand smoke since 5771-6031 Alcohol Use Standard Drinks/Week Comments Yes 14 (1 standard drink = 0.6 oz pure alcohol) hardly any for the last month B1300 Health Literacy Answer Date Recor ded How often do you need to hav e someone help you when you read instructions, pamphlets, or other written material from your doctor or pharmacy? Never 05/04/2024 [facility] Utilities Answer Date Recorded In [...] 9:00 AM EST Infusion Hematology Oncology at [address] [phone] 08/26/2024 11:30 AM EST Telephone Hematology [place] [address] Aniya Saab, [facility] [place] [address] 09/11/2024 8:30 AM EST Laboratory Appointment Lab at [facility] [place] [address] [place] [phone] 09/11/2024 9:30 AM EST Office Visit Hematology [place] [phone] Albania Chahal MD [facility] HEMATOLOGY/[place] [address] 09/11/2024 11:00 AM EST Appointment Hematology [place] [address] 10/02/2024 7:45 AM EDT Laboratory Appointment Lab at [facility] H[place] On[place] [address] [place] [phone] 10/02/2024 9:[address] [place] [place] [phone] Albania Chahal MD [facility] HEMATOLOGY[place] [address] 10/02/2024 10:30 AM EDT Office Visit Hematology [place] [address] Albania Chahal MD [facility] HEMATOLOGY[place] [address] 10/02/2024 12:00 PM EDT Appointment Hematology [place] [phone] Scheduled Orders Name Type Priority Associated Diagnoses [...] lung documented in this encounter Care Teams Face Man Relationship Specialty Start Date End Date America Caro MD [address] [place] [address] PCP - General Family Medicine 03/31/24 documented as of this encounter
--- OUTSIDE RECORDS SUMMARY | 2024-08-22 01:18 | XMS_ITS | Encounter Summary ---
Author Organization [facility] [address] Care Team Providers Care Lubrication Servicer Name Role Phone America Caro MD Primary Care Provider [phone] Encounter Details Date Type Department Care Team (Latest Contact Info) Description 04/16/2024 Travel Social History Tobacco Use Types Packs/Day Years Used Date Smoking Tobacco: Former Pipe Passive Smoke Exposure: Past Smokeless Tobacco: Never Comments:Smoke pipe for 10 y ears since 13 years old, Does still smoke pot but is slowing down. Passive Exposure Comments:Second hand smoke since 5601-1894 Sex and Gender Information Value Date Recorded Sex Assigned at Not on file Gender Identity Not on file Sexual Orientation Not on file documented as of this encounter Plan of Treatment Upcoming Encounters Date Type Department Care Team (Late st Contact Info) Description 08/22/2024 9:00 AM EST Infusion Hematology Oncology at [address] [phone] 08/26/2024 11:30 AM EST Telephone Hematology [place] [address] [facility] [place] [address] 09/11/2024 8:30 AM EST Laboratory Appointment Lab [place] [facility] [place] [address] [place] [phone] 09/11/2024 9:30 AM EST Office Visit Hematology [place] [phone] Albania Chahal MD [facility] HEMATOLOGY/[place] [address] 09/11/2024 11:00 AM EST Appointment Hematology [place] [address] 10/02/2024 7:45 AM EDT Laboratory Appointment Lab at [facility] [place] On[place] [address] [place] [phone] 10/02/2024 9:[address] Scan at [place] [phone] Albania Chahal MD [facility] HEMATOLOGY[place] [address] 10/02/2024 10:30 AM EDT Office Visit Hematology [place] [address] Albania Chahal MD [facility] HEMATOLOGY/[place] [address] 10/02/2024 12:00 PM EDT Appointment Hematology and Oncology at [place] [phone] documented as of this encounter Visit Diagnoses Not on filedocumented in this encounter Care Teams Lubrication Servicer Relationship Specialty Start Date End Date America Caro MD [address] [place] [address] PCP - General Family Medicine 03/31/24 documented as of this encounter
--- OUTSIDE RECORDS SUMMARY | 2024-08-22 01:18 | XMS_ITS | Encounter Summary ---
Author Organization On License [facility] Address [facility] [address] Care Team Providers Care Supervisor Paper Machine Name Role Phone America Caro MD Primary Care Provider [phone] Encounter Details Date Type Department Care Team (Latest Contact Info) Description 05/06/2024 Travel Social History Tobacco Use Types Packs/Day Years Used Date Smoking Tobacco: Former Pipe Passive Smoke Exposure: Past Smokeless Tobacco: Never Comments:Smoke pipe for 10 y ears since 13 years old, Does still smoke pot but is slowing down. Passive Exposure Comments:Second hand smoke since 6644-3624 Alcohol Use Standard Drinks/Week Comments Yes 14 (1 standard drink = 0.6 oz pure alcohol) hardly any for the last month B1300 Health Literacy Answer Date Recor ded How often do you need to hav e someone help you when you read instructions, pamphlets, or other written material from your doctor or pharmacy? Never 05/04/2024 [facility] Utilities Answer Date Recorded In the past 12 months has [employer], gas, oil, or water Work in Field threatened to shut off services in your [...] in the past 12 m [facility], were you homeless or living in a penitentiary (including now)? No 05/04/2024 Sex and Gender Information Value Date Recorded Sex Assigned at Not on file Gender Identity Not on file Sexual Orientation Not on file documented as of this encounter Plan of Treatment Upcoming Encounters Date Type Department Care Team (Late st Contact Info) Description 08/22/2024 9:00 AM EST Infusion Hematology Oncology at [address] [address] 08/26/2024 11:30 AM EST Telephone [place] [phone] [facility] [place] [address] 09/11/2024 8:30 AM EST Laboratory Appointment Lab at [facility] Hematology Oncology [address] [place] [phone] 09/11/2024 9:30 AM EST Office Visit [place] [phone] Albania Chhaal MD [facility] HEMATOLOGY/[place] [address] 09/11/2024 11:00 AM EST Appointment [place] [phone] 10/02/2024 7:45 AM EDT Laboratory Appointment Lab at [facility] Hematology Oncology [address] [place] [phone] 10/02/2024 9:[address] [place] [place] [phone] Albania Chahal MD [facility] HEMATOLOGY/[place] [address] 10/02/2024 10:30 AM EDT Office Visit [place]ology [place] [phone] Albania Chahal MD [facility] HEMATOLOGY/[place] [address] 10/02/2024 12:00 PM EDT Appointment Hematology and Oncology at [place] [phone] documented as of this encounter Visit Diagnoses Not on filedocumented in this encounter Care Teams Supervisor Paper Machine Relationship Specialty Start Date End Date America Caro MD [address] [place] [address] PCP - General Family Medicine 03/31/24 documented as of this encounter
--- OUTSIDE RECORDS SUMMARY | 2024-08-22 01:18 | XMS_ITS | Encounter Summary ---
Author Organization Formerly [facility] [place] [address] Care Team Providers Care Storage Center Manager Name Role Phone America Caro MD Primary Care Provider Encounter Details Date Type Department Care Team (Latest Contact Info) Description 04/16/2024 2:40 PM EDT Laboratory Appointment Lab [address] [place] [phone] Pleural effusion, bilateral Social History Tobacco Use Types Packs/Day Years Used Date Smoking Tobacco: Former Pipe Passive Smoke Exposure: Past Smokeless Tobacco: Never Comments:Smoke pipe for 10 y ears since 13 years old, Does still smoke pot but is slowing down. Passive Exposure Comments:Second hand smoke since 4692-5914 Sex and Gender Information Value Date Recorded Sex Assigned at Not on file Gender Identity Not on file Sexual Orientation Not on file documented as of this encounter Plan of Treatment Upcoming Encounters Date Type Department Care Team (Late st Contact Info) Description 08/22/2024 9:00 AM EST Infusion Hematology Oncology at [address] [phone] 08/26/2024 11:30 AM EST Telephone Hematology [place] [phone] Aniya Saab RD [facility] [place] [address] 09/11/2024 8:30 AM EST Laboratory Appointment Lab at [facility] Hematology Oncology [address] [place] [phone] 09/11/2024 9:30 AM EST Office Visit Hematology [place] [address] Albania Chahal MD [facility] HEMATOLOGY/[place] [address] 09/11/2024 11:00 AM EST Appointment Hematology [place] [address] 10/02/2024 7:45 AM EDT Laboratory Appointment Lab at [facility] Hematology Oncology [address] [place] [phone] 10/02/2024 9:[address] [place] [address] Albania Chahal MD [facility] HEMATOLOGY[place] [address] 10/02/2024 10:30 AM EDT Office Visit Hematology [place] [address] Albania Chahal MD [facility] HEMATOLOGY/[place] [address] 10/02/2024 12:00 PM EDT Appointment Hematology [place] [address] documented as of this encounter Procedures Procedure [...] 65 - 199 mg/dL 04/16/2024 1:32 PM T [facility] Comment:Glucose Concentratio n >=200 mg/dL plus symptoms is consistent with Diabetes Mellitus. Blood Urea Nitrogen 14 10 - 20 mg/dL 04/16/2024 1:32 PM T [facility] Creatinine 0.71(L) 0.80 - 1.50 mg/dL 04/16/2024 1:32 PM [facility] Sodium 140 135 - 145 mMol/L 04/16/2024 1:32 PM [facility] Potassium 4.1 3.5 - 5.0 mMol/L 04/16/2024 1:32 PM [facility] Chloride 103 98 - 107 mMol/L 04/16/2024 1:32 PM [facility] Carbon Dioxide 27 22 - 31 mMol/L 04/16/2024 1:32 PM [facility] Anion Gap 10 5 - 15 mMol/L 04/16/2024 1:32 PM [facility] Calcium 9.0 8.5 - 10.5 mg/dL 04/16/2024 1:32 PM [facility] Protein, Total 7.1 6.1 - 8.0 g/dL 04/16/2024 1:32 PM [facility] Albumin 3.5 3.2 - 5.2 g/dL 04/16/2024 1:32 PM [facility] Aspartate Aminotransferase 27 <=39 unit/L 04/16/2024 1:32 PM [facility] Alanine Aminotransferase 30 0 - 55 unit/L 04/16/2024 1:32 PM [facility] Alkaline Phosphatase 419(H) 40 - 130 unit/L 04/16/2024 1:32 PM [facility] Bilirubin, Total 0.5 <=1.3 mg/dL 04/16/2024 1:32 PM EDT [facility] Est Glomerular Filtration Rate - Male 99 mL/min/1. 73 m?? 04/16/2024 1:32 PM EDT [facility] Comment: This patient's estimated [...] Fasting Status No 04/16/2024 1:32 PM EDT [facility] Blood VENOUS BLOOD SPECIMEN / Unknown Venipuncture / Unknown 04/16/2024 12:47 PM EDT 04/16/2024 12:47 PM EDT Seven Saha MD CHEMISTRY ORDERABLES [facility] [place] [address] * (ABNORMAL) Lactate Dehydrogenase (04/16/2024 12:47 PM EDT) Lactate Dehydrogenase 275(H) 110 - 220 unit/L 04/16/2024 1:32 PM EDT [facility] Blood VENOUS BLOOD SPECIMEN / Unknown Venipuncture / Unknown 04/16/2024 12:47 PM EDT 04/16/2024 12:47 PM EDT Seven Saha MD CHEMISTRY ORDERABLES [facility] [place] [address] * (ABNORMAL) CBC (with Diff) (04/16/2024 12:47 PM EDT) White Blood Cell 8.36 4.00 - 9.50 x10(3)/mc L 04/16/2024 1:04 PM [facility] Red Blood Cell 4.54(L) 4.58 - 5.54 x10(6)/mc L 04/16/2024 1:04 PM [facility] Hemoglobin 12.1(L) 13.7 - 16.5 g/dL 04/16/2024 1:04 PM [facility] Hematocrit 37.5(L) 40.5 - 48.5 % 04/16/2024 1:04 PM [facility] Mean Cell Volume 82.6(L) 82.9 - 93.1 fL 04/16/2024 1:04 PM [facility] Mean Cell Hemoglobin 26.7(L) 27.5 - 32.1 pg 04/16/2024 1:04 PM [facility] Mean Cell Hemoglobin Concentration 32.3 32.0 - 35.7 g/dL 04/16/2024 1:04 PM [facility] Platelet 725(H) 145 - 357 x10(3)/mc L 04/16/2024 1:04 PM [facility] Mean Platelet Volume 8.5 7.6 - 12.9 fL 04/16/2024 1:04 PM [facility] RDW Standard Deviation 45.0 36.0 - 45.0 fL 04/16/2024 1:04 PM [facility] RDW coefficient of variation 14.9(H) 11.4 - 13.8 % 04/16/2024 1:04 PM [facility] NRBC% auto 0.0 % 04/16/2024 1:04 PM [facility] NRBC Absolute <0.01 <0.01 x10(3)/mc L 04/16/2024 1:04 PM [facility] Neutrophil % 77.2 % 04/16/2024 1:04 PM EDT [facility] Neutrophil Absolute (ANC) - Automated 6.46(H) 1.70 - 6.10 x10(3)/mc L 04/16/2024 1:04 PM EDT [facility] Lymph % 14.0 % 04/16/2024 1:04 PM EDT [facility] Lymph Absolute 1.17 0.90 - 3.20 x10(3)/mc L 04/16/2024 1:04 PM EDT [facility] Monocyte % 7.2 % 04/16/2024 1:04 PM EDT [facility] Monocyte Absolute 0.60 0.30 - 0.90 x10(3)/mc L 04/16/2024 1:04 PM EDT [facility] Eos % 0.5 % 04/16/2024 1:04 PM EDT [facility] Eos Absolute 0.04 0.00 - 0.40 x10(3)/mc L 04/16/2024 1:04 PM EDT [facility] Basophil % 0.4 % 04/16/2024 1:04 PM EDT [facility] Baso Absolute <0.04 0.00 - 0.10 x10(3)/mc L 04/16/2024 1:04 PM EDT [facility] Immature Gran % 0.7 % 1:04 PM EDT [facility] Immature Gran Absolute 0.06(H) 0.00 - 0.04 x10(3)/mc L 04/16/2024 1:04 PM EDT [facility] Blood VENOUS BLOOD SPECIMEN / Unknown Venipuncture / Unknown 04/16/2024 12:47 PM EDT 04/16/2024 12:47 PM EDT Seven Saha MD HEMATOLOGY ORDERABLE S [facility] [place] [address] documented in this encounter Visit Diagnoses Diagnosis Pleural effusion, bilateral Unspecified pleural effusion documented in this encounter Care Teams Storage Center Manager Relationship Specialty Start Date End Date America Caro MD [address] [place] [address] PCP - General Family Medicine 03/31/24 documented as of this encounter
--- OUTSIDE RECORDS SUMMARY | 2024-08-22 01:18 | XMS_ITS | Encounter Summary ---
Author Organization Formerly [facility] Address [facility] [place] [address] Care Team Providers Care Employee Communications Manager Name Role Phone America Caro MD Primary Care Provider [phone] Encounter Details Date Type Department Care Team (Latest Contact Info) Description 04/16/2024 12:45 PM EDT - 04/16/2024 11:59 PM EDT Hospital Encounter XRay at [address] [place] [address] Seven Saha MD [facility] [place] [address] Pleural effusion, bilateral Discharge Disposition: Home Social History Tobacco Use Types Packs/Day Years Used Date Smoking Tobacco: Former Pipe Passive Smoke Exposure: Past Smokeless Tobacco: Never Comments:Smoke pipe for 10 y ears since 13 years old, Does still smoke pot but is slowing down. Passive Exposure Comments:Second hand smoke since 1416-4695 Sex and Gender Information Value Date Recorded [...] AM EST Infusion Hematology Oncology at [address] [phone] 08/26/2024 11:30 AM EST Telephone Hematology [place] [address] Aniya Saab, [facility] [place] [place] [address] 09/11/2024 8:30 AM EST Laboratory Appointment Lab at [facility] Hematology Oncology [address] [place] [phone] 09/11/2024 9:30 AM EST Office Visit Hematology [place] [address] Albania Chahal MD [facility] HEMATOLOGY/[place] [address] 09/11/2024 11:00 AM EST Appointment Hematology [place] [address] 10/02/2024 7:45 AM EDT Laboratory Appointment Lab at [facility] Hematology Oncology [address] [place] [phone] 10/02/2024 9:[address] [place] [address] Albania Chahal MD [facility] HEMATOLOGY/[place] [address] 10/02/2024 10:30 AM EDT Office Visit Hematology [place] [address] Albania Chahal MD [facility] HEMATOLOGY/[place] [address] 10/02/2024 12:00 PM EDT Appointment Hematology [place] [address] documented as of this encounter Procedures Procedure Name Priority Date/Time Associated Diagnosis Comments XR CHEST PA AND LATERAL Routine 04/16/2024 1:08 PM EDT Pleural effusion, bilateral documented in this encounter Results * XR Chest PA & Lateral (Generic) (04/16/2024 1:08 PM EDT) WORKSTATION ID [id number] RAD Anatomical Region Laterality Modality Chest N/A [...] that requested your imaging first. ? Narrative 04/16/2024 1:44 PM EDT EXAMINATION: XR [...] registered nurse that requested your imaging first. Electronically signed by: JOSE ROBERTO FRANCES MD, [facility]([phone]), at 04/16/2024 1:44 PM Seven Saha MD IMG DX ORDERABLES documented in this encounter Visit Diagnoses Diagnosis Pleural effusion, bilateral Unspecified pleural effusion documented in this encounter Care Teams Employee Communications Manager Relationship Specialty Start Date End Date America Caro MD [address] [place] [address] PCP - General Family Medicine 03/31/24 documented as of this encounter
--- OUTSIDE RECORDS SUMMARY | 2024-08-22 01:19 | XMS_ITS | Encounter Summary ---
[place] [address] Care Team Providers Care House Calls Nurse Name Role Phone America Caro MD Primary Care Provider [phone] Reason for Referral * Diagnostic Test (Routine) - Closed Specialty Diagnoses / Procedures Referred By Contac t Referred To Contact Radiology Diagnoses Multiple nodules of lung Procedures NM PET CT Skull Base to Mid-thigh America Caro MD [address] [place] [address] [place] [address] Referral ID Status Reason Start Date Expiration Date V isits Requested Visits Authorized [id number] Closed Specialty Service Requested 04/03/2024 10/01/2025 1 1 Reason for Visit * Diagnostic Test (Routine) - Closed Specialty Diagnoses / Procedures Referred By Contac t Referred To Contact Radiology Diagnoses Multiple nodules of lung Procedures NM PET CT Skull Base to Mid-thigh America Caro MD [address] [place] [address] [place] [address] Referral ID Status Reason Start Date Expiration Date V isits Requested Visits Authorized [id number] Closed Specialty Service Requested 04/03/2024 10/01/2025 1 1 Encounter Details Date Type Department Care Team (Latest Contact Info) Description 04/11/2024 9:33 AM EDT - 04/11/2024 11:59 PM EDT Hospital Encounter Nuclear Medicine at [place] [phone] America Caro MD [address] [place] [address] Multiple nodules of lung Discharge Disposition: Home [...] AM EST Infusion Hematology Oncology at [address] [phone] 08/26/2024 11:30 AM EST Telephone [place]ematology [place] [address] [facility] [place] [address] 09/11/2024 8:30 AM EST Laboratory Appointment Lab [place] [facility] [place] [address] [place] [phone] 09/11/2024 9:30 AM EST Office Visit Hematology [place] [phone] Albania Chahal MD [facility] [place]OLOGY/[place] [address] 09/11/2024 11:00 AM EST Appointment Hematology [place] [phone] 10/02/2024 7:45 AM EDT Laboratory Appointment Lab at [facility] [place] [address] [place] [phone] 10/02/2024 9:[address] [place] [place] [phone] Albania Chahal MD [facility] HEMATOLOGY[place] [address] 10/02/2024 10:30 AM EDT Office Visit Hematology [place] [phone] Albania Chahal MD [facility] HEMATOLOGY/[place], [place] [address] 10/02/2024 12:00 PM EDT Appointment [place]ematology [place] [phone] documented as of this encounter Procedures Procedure Name Priority Date/Time Associated Diagnosis Comments NM PET CT SKULL BASE TO MID-THIGH ([facility]) Routine 04/11/2024 11:00 AM EDT Multiple nodules of lung documented in this encounter Results * NM PET CT Skull Base to Mid-thigh (04/11/2024 11:00 AM EDT) Pathologist [employer] WORKSTATION ID [id number] RAD Anatomical Region Laterality Modality Positron Emissio [...] effusions. 7. ??Findings were communicated with Dr. mAerica Caro at 2:40 PM on 04/14/24. I [...] questions please contact the health customer care manager that requested your imaging first. ? Electronically signed by: Rishabh Cohen MD, [facility] ([phone]), at 04/14/2024 3:40 PM Narrative 04/14/2024 3:40 PM EDT EXAMINATION: NM PET CT STANDARD SKULL BASE TO MID-THIGH CLINICAL HISTORY: multiple nodules of lung; other nonspecific abnormal finding of lung field R91.8, Other nonspecific abnormal finding of lung field TECHNIQUE: Following IV injection of 16-gxpino-8-deoxyglucose (FDG) a standard uptake of approximately 60 [...] Note Rishabh Cohen MD - 04/14/2024 EXAMINATION: [place] PET CT STANDARD SKULL BASE TO MID-THIGH CLINICAL HISTORY: multiple nodules of lung; other nonspecific abnormalfinding of lung field R91.8, Other nonspecific abnormal finding of lung field TECHNIQUE: Following IV injection of 85-rmqrms-0-deoxyglucose (FDG) astandard uptake of approximately 60 minutes, [...] have questions please contactthe health customer care manager that requested your imaging first. America Caro [...] Arm documented in this encounter Care Teams House Calls Nurse Relationship Specialty Start Date End Date America Caro MD [address] [place] [address] PCP - General Family Medicine 03/31/24 documented as of this encounter
--- OUTSIDE RECORDS SUMMARY | 2024-08-22 01:19 | XMS_ITS | Encounter Summary ---
[place] [address] Care Team Providers Care Vegetable Washing Machine Operator Name Role Phone America Caro MD Primary Care Provider [phone] Reason for Referral * Consultation (Urgent) - Authorized Specialty Diagnoses / Procedures Referred By Contac t Referred To Contact Hematology and Oncology Diagnoses Malignant neoplasm of bronchus and lung HAS LARGE PERICARDIAL EFFUSION America Caro MD [address] [place] [address] [facility] [address] [place] [address] Referral ID Status Reason Start Date Expiration Date Visits Requested Visits Authorized [id number] Authorized Consult, Test & Treat PCP Updated and/or Approved 04/14/2024 10/12/2024 6 6 Encounter Details Date Type Department Care Team (Latest Contact Info) Description 04/15/2024 Transcribe Orders eDH Incoming Referrals [phone] America Caro MD [address] [place] [address] Malignant neoplasm of bronchus and [...] AM EST Infusion Hematology Oncology at [address] [phone] 08/26/2024 11:30 AM EST Telephone Hematology [place] [phone] Aniya Saab, [facility] [place] [place] [address] 09/11/2024 8:30 AM EST Laboratory Appointment Lab at [facility] Hematology Oncology [address] [place] [phone] 09/11/2024 9:30 AM EST Office Visit Hematology [place] [phone] Albania Chahal MD [facility] HEMATOLOGY/[place] [address] 09/11/2024 11:00 AM EST Appointment Hematology [place] [phone] 10/02/2024 7:45 AM EDT Laboratory Appointment Lab at [facility] Hematology Oncology [address] [place] [phone] 10/02/2024 9:[address] [place] [phone] Albania Chahal MD [facility] HEMATOLOGY/[place] [address] 10/02/2024 10:30 AM EDT Office Visit Hematology [place] [phone] Albania Chahal MD [facility] HEMATOLOGY/[place] [address] 10/02/2024 12:00 PM EDT Appointment Hematology [place] [phone] Scheduled Referrals Name Type Priority Associated Diagnoses Order Schedule Referral to Hematology and Oncology Outpatient Referral Routine Malignant neoplasm of bronchus and lung Ordered: 04/15/2024 documented as of this encounter Visit Diagnoses Diagnosis Malignant neoplasm of bronchus and lung Malignant neoplasm of bronchus and lung, unspecified site documented in this encounter Care Teams Vegetable Washing Machine Operator Relationship Specialty Start Date End Date America Caro MD [address] [place] [address] PCP - General Family Medicine 03/31/24 documented as of this encounter
--- OUTSIDE RECORDS SUMMARY | 2024-08-22 01:19 | XMS_ITS | Encounter Summary ---
Author Organization [facility] [place] [address] Care Team Providers Care Adobe Maker Name Role Phone Unavailable Primary Care Provider Unavailabl e Encounter Details Date Type Department Care Team (Late st Contact Info) Description 03/28/2024 Ancillary Procedure Radiology Library [place] [address] America Caro MD [address] [place], [place] [address] Social History Tobacco Use Types Packs/Day Years [...] AM EST Infusion Hematology Oncology at [address] [phone] 08/26/2024 11:30 AM EST Telephone Hematology [place] [address] [facility] [place] [address] 09/11/2024 8:30 AM EST Laboratory Appointment Lab at [facility] Hematology Oncology [address] [place] [phone] 09/11/2024 9:30 AM EST Office Visit Hematology [place] [address] Albania Chahal MD [facility] HEMATOLOGY/[place] [address] 09/11/2024 11:00 AM EST Appointment Hematology [place] [phone] 10/02/2024 7:45 AM EDT Laboratory Appointment Lab at [facility] Hematology Oncology [address] [place] [phone] 10/02/2024 9:[address] [place] [phone] Albania Chahal MD [facility] HEMATOLOGY[place] [address] 10/02/2024 10:30 AM EDT Office Visit Hematology [place] [phone] Albania Chahal MD [facility] HEMATOLOGY[place] [address] 10/02/2024 12:00 PM EDT Appointment Hematology [place] [address] documented as of this encounter Procedures Procedure Name Priority Date/Time Associated Diagnosis Comments FILM LIBRARY STORAGE ONLY CT CHEST Routine 03/28/2024 12:00 AM EDT documented in this encounter Results * Film Library- Storage Only CT Chest (03/28/2024 12:00 AM EDT) Narrative [facility] - 04/02/2024 10:44 AM EDT This exam is auto-finalizing. It's purpose is for storage only. America Caro MD G FILM LIBRARY ORD ERABLES DH MIKALA Mahan documented in this encounter Visit Diagnoses Not on filedocumented in this encounter
--- OUTSIDE RECORDS SUMMARY | 2024-08-22 01:19 | XMS_ITS | Encounter Summary ---
[place] [address] Care Team Providers Care Gunstock Spray Unit Adjuster Name Role Phone Venancio Caro MD Primary Care Provider [phone] Reason for Referral * Diagnostic Test (Routine) - Closed Specialty Diagnoses / Procedures Referred By Contac t Referred To Contact Cardiology Diagnoses Pericardial effusion Procedures Mobile Echo Venancio Caro MD [address] [place] [address] [facility] [place] [address] Referral ID Status Reason Start Date Expiration Date V isits Requested Visits Authorized [id number] Closed Specialty Service Requested 04/02/2024 04/02/2025 1 1 Reason for Visit * Diagnostic Test (Routine) - Closed Specialty Diagnoses / Procedures Referred By Contac t Referred To Contact Cardiology Diagnoses Pericardial effusion Procedures Mobile Echo Venancio Caro MD [address] [place] [address] [facility] [place] [address] Referral ID Status Reason Start Date Expiration Date V isits Requested Visits Authorized [id number] Closed Specialty Service Requested 04/02/2024 04/02/2025 1 1 Encounter Details Date Type Department Care Team (Latest Contact Info) Description 04/02/2024 8:53 AM EDT - 04/02/2024 11:59 PM EDT Hospital Encounter [place] [phone] Venancio Caro MD [address] [place] [address] Pericardial effusion Discharge Disposition: Home Social History [...] AM EST Infusion Hematology Oncology at [address] [address] 08/26/2024 11:30 AM EST Telephone [place]emat[place] [phone] Aniya Saab, [facility] [place] [address] 09/11/2024 8:30 AM EST Laboratory Appointment Lab at [facility] [place] Oncology [address] [place] [phone] 09/11/2024 9:30 AM EST Office Visit Hematology [place] [address] Albania Chahal MD [facility] HEMATOLOGY/[place] [address] 09/11/2024 11:00 AM EST Appointment Hematology [place] [phone] 10/02/2024 7:45 AM EDT Laboratory Appointment Lab at [facility] Hematology Oncology [address] [place] [address] 10/02/2024 9:[address] [place] [place] [address] Albania Chahal MD [facility] HEMATOLOGY/[place] [address] 10/02/2024 10:30 AM EDT Office Visit Hematology [place] [address] Albania Chahal MD [facility] HEMATOLOGY/[place] [address] 10/02/2024 12:00 PM EDT Appointment Hematology [place] [address] documented as of this encounter Procedures Procedure Name Priority Date/Time Associated Diagnosis Comments ECHO COMPLETE Routine 04/02/2024 9:55 AM EDT Pericardial effusion documented in this encounter Results * ECHO COMPLETE (04/02/2024 9:55 AM EDT) Pathologist [facility] [place] EF 60 HEARTLAB SYSTEM Anatomical Region Laterality Modality Other 04/02/2024 7:48 AM EDT Narrative 04/02/2024 10:17 AM EDT 1 [place] [address] ? Echocardiogram Report Name: HENRY IRVIN ?Study Date: 04/02/2024 07:48 AMBP: 121/69 mmHg : 1955 ? Height: 160 cm ? Account: [id number] Age: 68 yrs ? Weight: 63 kg Gender: Male ?BSA: 1.7 m2 Ordering Physician: VENANCIO CARO Referring Physician: VENANCIO CARO Performed By: JOSEPH Reason For Study: Pericardial Effusion Exam Location: [facility]. Interpretation Summary -There is a moderate [...] disease. -No comparison study is available. Procedure Complete-[id number]. Satisfactory quality. Left Ventricle Left ventricle is [...] Note Sabino Ortiz MD - 04/02/2024 1 [place] [address] Echocardiogram Report Name: IRVINHENRY Study Date:04/02/2024 07:48 AMBP: 121/69 mmHg : 1955 Height: 160 cm Account: [id number] Age: 68 yrs Weight: 63 kg Gender: Male BSA: 1.7 m2 Ordering Physician: VENANCIO CARO Referring Physician: VENANCIO CARO Performed By: JOSEPH Reason For Study: Pericardial Effusion Exam Location: [facility]. Interpretation Summary -There is a moderate [...] disease. -No comparison study is available. Procedure Complete-[id number]. Satisfactory quality. Left Ventricle Left ventricle is [...] pericardium documented in this encounter Care Teams Gunstock Spray Unit Adjuster Relationship Specialty Start Date End Date Venancio Caro MD [address] [place] [address] PCP - General Family Medicine 03/31/24 documented as of this encounter
--- OUTSIDE RECORDS SUMMARY | 2024-08-22 01:19 | XMS_ITS | Encounter Summary ---
[place] [address] Care Team Providers Care Generation Engineer Name Role Phone America Caro MD Primary Care Provider [phone] Reason for Referral * Consultation (Urgent) - Authorized Specialty Diagnoses / Procedures Referred By Contac t Referred To Contact Pulmonology Diagnoses Other nonspecific abnormal finding of lung field Multiple lung nodules America Caro MD [address] [place] [address] [facility] Pulmonology [address] [place] [phone] Referral ID Status Reason Start Date Expiration Date Visits Requested Visits Authorized [id number] Authorized Consult, Test & Treat PCP Updated and/or Approved 03/31/2024 03/30/2025 6 6 Encounter Details Date Type Department Care Team (Latest Contact Info) Description 04/14/2024 Transcribe Orders eDH Incoming Referrals [phone] America Caro MD [address] [place] [address] Other nonspecific abnormal finding of [...] AM EST Infusion Hematology Oncology at [address] [phone] 08/26/2024 11:30 AM EST Telephone Hematology [place] [phone] Aniya Saab, [facility] [place] [address] 09/11/2024 8:30 AM EST Laboratory Appointment Lab at [facility] [place]ology Oncology [address] [place] [phone] 09/11/2024 9:30 AM EST Office Visit Hematology [place] [phone] Albania Chahal MD [facility] HEMATOLOGY/[place] [address] 09/11/2024 11:00 AM EST Appointment Hematology [place] [phone] 10/02/2024 7:45 AM EDT Laboratory Appointment Lab at [facility] Hematology Oncology [address] [place] [phone] 10/02/2024 9:[address] [place] [phone] Albania Chahal MD [facility] HEMATOLOGY/[place] [address] 10/02/2024 10:30 AM EDT Office Visit Hematology [place] [phone] Albania Chahal MD [facility] HEMATOLOGY/[place] [address] 10/02/2024 12:00 PM EDT Appointment Hematology [place] [address] Scheduled Referrals Name Type Priority Associated Diagnoses Orde r Schedule Referral to Pulmonology Outpatient Referral Routine Other nonspecific abnormal finding of lung field Ordered: 04/14/2024 documented as of this encounter Visit Diagnoses Diagnosis Other nonspecific abnormal finding of lung field documented in this encounter Care Teams Generation Engineer Relationship Specialty Start Date End Date America Caro MD [address] [place] [address] PCP - General Family Medicine 03/31/24 documented as of this encounter
--- OUTSIDE RECORDS SUMMARY | 2024-08-22 01:19 | XMS_ITS | Encounter Summary ---
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 Lawrence Cruz MD [address] [place] [address] [place] [address] [facility] Thoracic Surg [address] [place] [phone] Referral ID Status Reason Start Date Expiration Date V isits Requested Visits Authorized [id number] Closed Consult, Test & Treat PCP Updated and/or Approved 03/31/2024 03/31/2025 6 6 Encounter Details Date Type Department Care Team (Late st Contact Info) Description 03/31/2024 Transcribe Orders eDH Incoming Referrals [phone] Lawrence Cruz MD [address] [place] [address] [place] [address] Mass of mediastinum Social History [...] AM EST Infusion Hematology Oncology at [address] [phone] 08/26/2024 11:30 AM EST Telephone Hematology [place] [address] Aniya Saab, [facility] [place] [address] 09/11/2024 8:30 AM EST Laboratory Appointment Lab at [facility] Hematology Oncology [address] [place] [phone] 09/11/2024 9:30 AM EST Office Visit Hematology and Oncology at [place] [phone] Albania Chahal MD [facility] HEMATOLOGY/[place] [address] 09/11/2024 11:00 AM EST Appointment Hematology [place] [phone] 10/02/2024 7:45 AM EDT Laboratory Appointment Lab at [facility] Hematology Oncology [address] [place] [phone] 10/02/2024 9:[address] [place] [phone] Albania Chahal MD [facility] HEMATOLOGY/[place] [address] 10/02/2024 10:30 AM EDT Office Visit Hematology [place] [phone] Albania Chahal MD [facility] HEMATOLOGY/[place] [address] 10/02/2024 12:00 PM EDT Appointment Hematology [place] [phone] Scheduled Referrals Name Type Priority Associated Diagnoses Orde r Schedule Referral to Hematology and Oncology Outpatient Referral Urgent Mass of mediastinum Ordered: 03/31/2024 documented as of this encounter Visit Diagnoses Diagnosis Mass of mediastinum Swelling, mass, or lump in chest documented in this encounter Care Teams Telemarketing Sales Representative Relationship Specialty Start Date End Date America Caro MD [address] [place] [address] PCP - General Family Medicine 03/31/24 documented as of this encounter
--- OUTSIDE RECORDS SUMMARY | 2024-08-22 01:19 | XMS_ITS | Encounter Summary ---
[place] [address] Care Team Providers Care Python Web Developer Name Role Phone America Caro MD Primary Care Provider [phone] Reason for Visit * Diagnostic Test (Routine) - Closed Specialty Diagnoses / Procedures Referred By Contac t Referred To Contact Radiology Diagnoses Multiple nodules of lung Procedures NM PET CT Skull Base to Mid-thigh America Caro MD [address] [place] [address] [place] [address] Referral ID Status Reason Start Date Expiration Date V isits Requested Visits Authorized [id number] Closed Specialty Service Requested 04/03/2024 10/01/2025 1 1 Encounter Details Date Type Department Care Team (Latest Contact Info) Description 04/11/2024 9:33 AM EDT - 04/11/2024 11:59 PM EDT Hospital Encounter [place] [phone] America Caro MD [address] [place] [address] Discharge Disposition: Home Social History [...] 9:00 AM EST Infusion Hematology Oncology at [address] [address] 08/26/2024 11:30 AM EST Telephone Hematology [place] [address] Aniya Saab, [facility] [place] [address] 09/11/2024 8:30 AM EST Laboratory Appointment Lab at [facility] [place] [address] [place] [phone] 09/11/2024 9:30 AM EST Office Visit [place]ology [place] [address] Albania Chahal MD [facility] HEMATOLOGY/[place] [address] 09/11/2024 11:00 AM EST Appointment Hematology [place] [address] 10/02/2024 7:45 AM EDT Laboratory Appointment Lab at [facility] Hematology Oncology [address] [place] [phone] 10/02/2024 9:[address] [place] [place] [address] Albania Chahal MD [facility] DR [place] [address] 10/02/2024 10:30 AM EDT Office Visit [place]ematology [place] [address] Albania Chahal MD [facility] DR HEMATOLOGY/[place] [address] 10/02/2024 12:00 PM EDT Appointment [place]ematology [place] [phone] documented as of this encounter Procedures Procedure Name Priority Date/Time Associated Diagnosis Comments NM PET CT SKULL BASE TO MID-THIGH (LCSR) Routine 04/11/2024 11:00 AM EDT Multiple nodules of lung POC, GLUCOSE Routine 04/11/2024 9:43 AM EDT documented in this encounter Results * POC, GLUCOSE (04/11/2024 9:43 AM EDT) [facility] Signature Glucometer, POC 76 65 - 199 mg/dL 04/11/2024 9:43 AM EDT [facility] Comment:Supplemental ranges: <140 mg/dL before meals <180 mg/dL all other times of the day. Blood CAPILLARY BLOOD / Unknown 04/11/2024 9:43 AM EDT 04/11/2024 9:43 AM EDT America Caro MD POINT OF CARE TEST O RDERABLES [facility] [place] [address] documented in this encounter Visit Diagnoses Not on filedocumented in this encounter Care Teams Python Web Developer Relationship Specialty Start Date End Date America Caro MD [address] [place] [address] PCP - General Family Medicine 03/31/24 documented as of this encounter
--- OUTSIDE RECORDS SUMMARY | 2024-08-22 01:19 | XMS_ITS | Encounter Summary ---
Author Organization [facility] [place] [address] Care Team Providers Care Automobile Seat Cover Installer Name Role Phone America Caro MD Primary Care Provider [phone] Encounter Details Date Type Department Care Team [...] AM EST Infusion Hematology Oncology at [address] [phone] 08/26/2024 11:30 AM EST Telephone Hematology [place] [phone] [facility] [place] [address] 09/11/2024 8:30 AM EST Laboratory Appointment Lab at [facility] Hematology Oncology [address] [place] [phone] 09/11/2024 9:30 AM EST Office Visit Hematology [place] [phone] Albania Chahal MD [facility] HEMATOLOGY[place] [address] 09/11/2024 11:00 AM EST Appointment Hematology [place] [address] 10/02/2024 7:45 AM EDT Laboratory Appointment Lab at [facility] Hematology Oncology [address] [place] [phone] 10/02/2024 9:[address] Scan at [place] [phone] Albania Chahal MD [facility] HEMATOLOGY/[place] [address] 10/02/2024 10:30 AM EDT Office Visit Hematology [place] [phone] Albania Chahal MD [facility] [place]EMATOLOGY/[place] [address] 10/02/2024 12:00 PM EDT Appointment Hematology and Oncology at [place] [address] documented as of this encounter Visit Diagnoses Not on filedocumented in this encounter Care Teams Automobile Seat Cover Installer Relationship Specialty Start Date End Date America Caro MD [address] [place] [address] PCP - General Family Medicine 03/31/24 documented as of this encounter
--- OUTSIDE RECORDS SUMMARY | 2024-08-22 01:19 | XMS_ITS | Encounter Summary ---
[place] [address] Care Team Providers Care Laboratory Helper Name Role Phone America Caro MD Primary Care Provider [phone] Reason for Referral * Consultation (Routine) - Closed Specialty Diagnoses / Procedures Referred By Contac t Referred To Contact Cardiology Diagnoses Pericardial effusion Chest pain, R sided. Echo w/ moderate pericardial effusion, CT shows thickening of mediastinum & lung nodules (referred to Pulm). PMH recent cholecystectomy America Caro MD [address] [place] [address] [facility] Cardiology [address] [place] [phone] Referral ID Status Reason Start Date Expiration Date V isits Requested Visits Authorized [id number] Closed Consult, Test & Treat 04/07/2024 04/07/2025 1 0 Encounter Details Date Type Department Care Team (Latest Contact Info) Description 04/07/2024 Transcribe Orders eDH Incoming Referrals [phone] America Caro MD [address] [place] [address] Pericardial effusion Social History Tobacco [...] AM EST Infusion Hematology Oncology at [address] [phone] 08/26/2024 11:30 AM EST Telephone Hematology [place] [address] Aniya Saab, [facility] [place] [address] 09/11/2024 8:30 AM EST Laboratory Appointment Lab at [facility] Hematology Oncology [address] [place] [phone] 09/11/2024 9:30 AM EST Office Visit Hematology and Oncology at [place] [phone] Albania Chahal MD [facility] HEMATOLOGY/[place] [address] 09/11/2024 11:00 AM EST Appointment Hematology [place] [phone] 10/02/2024 7:45 AM EDT Laboratory Appointment Lab at [facility] Hematology Oncology [address] [place] [phone] 10/02/2024 9:[address] [place] [place] [phone] Albania Chahal MD [facility] HEMATOLOGY/[place] [address] 10/02/2024 10:30 AM EDT Office Visit Hematology [place] [phone] Albania Chahal MD [facility] HEMATOLOGY/[place] [address] 10/02/2024 12:00 PM EDT Appointment Hematology [place] [phone] Scheduled Referrals Name Type Priority Associated Diagnoses Order Schedule Referral to Cardiology Outpatient Referral Routine Pericardial effusion Ordered: 04/07/2024 documented as of this encounter Visit Diagnoses Diagnosis Pericardial effusion Unspecified disease of pericardium documented in this encounter Care Teams Laboratory Helper Relationship Specialty Start Date End Date America Caro MD [address] [place] [address] PCP - General Family Medicine 03/31/24 documented as of this encounter
--- OUTSIDE RECORDS SUMMARY | 2024-08-22 01:19 | XMS_ITS | Encounter Summary ---
[place] [address] Care Team Providers Care Covering Machine Operator Helper Name Role Phone America Caro MD Primary Care Provider [phone] Encounter Details Date Type Department Care Team (Late st Contact Info) Description 04/04/2024 Telephone [place] [address] Regina Alves Social History Tobacco Use Types Packs/Day Years Used Date Smoking Tobacco: Never Assessed B1300 Health Literacy Answer Date Recor ded How often do you need to hav e someone help you when you read instructions, pamphlets, or other written material from your doctor or pharmacy? Never 05/04/2024 [facility] Utilities Answer Date Recorded In the past [...] AM EST Infusion Hematology Oncology at [address] [phone] 08/26/2024 11:30 AM EST Telephone Hematology [place] [phone] Aniya Saab, [facility] [place] [address] 09/11/2024 8:30 AM EST Laboratory Appointment Lab at [facility] Hematology Oncology [address] [place] [phone] 09/11/2024 9:30 AM EST Office Visit Hematology [place] [phone] Albania Chahal MD [facility] HEMATOLOGY[place] [address] 09/11/2024 11:00 AM EST Appointment Hematology [place] [phone] 10/02/2024 7:45 AM EDT Laboratory Appointment Lab at [facility] Hematology Oncology [address] [place] [phone] 10/02/2024 9:[address] [place] [address] Albania Chahal MD [facility] [place]EMATOLOGY/[place] [address] 10/02/2024 10:30 AM EDT Office Visit Hematology [place] [address] Albania Chahal MD [facility] HEMATOLOGY[place] [address] 10/02/2024 12:00 PM EDT Appointment Hematology [place] [address] documented as of this encounter Visit Diagnoses Not on filedocumented in this encounter Care Teams Covering Machine Operator Helper Relationship Specialty Start Date End Date America Caro MD [address] [place] [address] PCP - General Family Medicine 03/31/24 documented as of this encounter
--- OUTSIDE RECORDS SUMMARY | 2024-08-22 01:19 | XMS_ITS | Encounter Summary ---
Author Organization [facility] [place] [address] Care Team Providers Care Environmental Quality Analyst Name Role Phone America Caro MD Primary Care Provider [phone] Encounter Details Date Type Department Care Team [...] AM EST Infusion Hematology Oncology at [address] [phone] 08/26/2024 11:30 AM EST Telephone Hematology [place] [phone] [facility] [place] [address] 09/11/2024 8:30 AM EST Laboratory Appointment Lab at [facility] Hematology Oncology [address] [place] [phone] 09/11/2024 9:30 AM EST Office Visit Hematology [place] [phone] Albania Chahal MD [facility] HEMATOLOGY[place] [address] 09/11/2024 11:00 AM EST Appointment Hematology [place] [address] 10/02/2024 7:45 AM EDT Laboratory Appointment Lab at [facility] Hematology Oncology [address] [place] [phone] 10/02/2024 9:[address] Scan at [place] [phone] Albania Chahal MD [facility] [place]ATOLOGY[place] [address] 10/02/2024 10:30 AM EDT Office Visit Hematology [place] [phone] Albania Chahal MD [facility] [place]OLOG[place] [address] 10/02/2024 12:00 PM EDT Appointment Hematology and Oncology at [place] [address] documented as of this encounter Visit Diagnoses Not on filedocumented in this encounter Care Teams Environmental Quality Analyst Relationship Specialty Start Date End Date America Caro MD [address] [place] [address] PCP - General Family Medicine 03/31/24 documented as of this encounter
--- OUTSIDE RECORDS SUMMARY | 2024-08-22 01:19 | XMS_ITS | Encounter Summary ---
Author Organization [facility] [place] [address] Care Team Providers Care Resin Painter Name Role Phone America Caro MD Primary Care Provider [phone] Encounter Details Date Type Department Care Team (Late st Contact Info) Description 04/15/2024 [place]phone [place] [phone] Kaela Zayas Social History Tobacco Use Types [...] AM EST Infusion Hematology Oncology at [address] [address] 08/26/2024 11:30 AM EST Telephone Hematology [place] [phone] [facility] [place] [address] 09/11/2024 8:30 AM EST Laboratory Appointment Lab at [facility] Hematology Oncology [address] [place] [phone] 09/11/2024 9:30 AM EST Office Visit Hematology [place] [phone] Albania Chahal MD [facility] HEMATOLOGY/[place] [address] 09/11/2024 11:00 AM EST Appointment Hematology and Oncology at [place] [phone] 10/02/2024 7:45 AM EDT Laboratory Appointment Lab at [facility] Hematology Oncology [address] [place] [phone] 10/02/2024 9:[address] Scan at [place] [phone] Albania Chahal MD [facility] HEMATOLOGY/[place] [address] 10/02/2024 10:30 AM EDT Office Visit Hematology [place] [phone] Albania Chahal MD [facility] HEMATOLOGY/[place] [address] 10/02/2024 12:00 PM EDT Appointment Hematology and Oncology at [place] [phone] documented as of this encounter Visit Diagnoses Not on filedocumented in this encounter Care Teams Resin Painter Relationship Specialty Start Date End Date America Caro MD [address] [place] [address] PCP - General Family Medicine 03/31/24 documented as of this encounter
--- OUTSIDE RECORDS SUMMARY | 2024-08-22 01:19 | XMS_ITS | Encounter Summary ---
Author Organization [facility] Address [facility] [place] [address] Care Team Providers Care Roofer Vinyl Coating Name Role Phone America Caro MD Primary Care Provider [phone] Reason for Visit * Reason Comments Establish Care * Consultation (Urgent) - Authorized Specialty Diagnoses / Procedures Referred By Contac t Referred To Contact Pulmonology Diagnoses Other nonspecific abnormal finding of lung field Multiple lung nodules America Caro MD [address] [place] [address] [facility] Pulmonology [address] [place] [phone] Referral ID Status Reason Start Date Expiration Date Visits Requested Visits Authorized [id number] Authorized Consult, Test & Treat PCP Updated and/or Approved 03/31/2024 03/30/2025 6 6 Encounter Details Date Type Department Care Team (Late st Contact Info) Description 04/16/2024 10:40 AM EDT [place] [phone] Andrea Freeman MD [facility] [place] [address] Pleural effusion, bilateral (Primary Dx); Laboratory procedure Social History Tobacco Use Types Packs/Day Years Used Date Smoking Tobacco: Former Pipe Passive Smoke Exposure: Past Smokeless Tobacco: Never Tobacco Cessation:Counseling Given: Not Answered Comments:Smoke pipe for 10 years since 13 years old, Does still smoke pot but is slowing down. Passive Exposure Comments:Second hand smoke since [id number] Sex and Gender Information Value Date Recorded [...] NAME: Henry Javier : 1955 MEDICAL RECORD: [id number] PRIMARY CARE PHYSICIAN: America Caro MD REFERRING PROVIDER: [place] [address] I have been asked to see Henry [...] acute chest pain prompting ED presentaiton to [facility]. He underwent cardiac eval and [...] or prior radiation. 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 Denies carcinogenic exposure occupationally. 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 Procedure Descriptions: Thoracentesis with Ultrasound Guidance (86752): The patient was placed in an upright [...] a post-procedure radiograph has been ordered. [employer] Pleura-Seal thoracentesis kit was used for this [...] Section of Pulmonary & Critical Care Pager: [phone] documented in this encounter Plan of Treatment Upcoming Encounters Date Type Department Care Team (Late st Contact Info) Description 08/22/2024 9:00 AM EST Infusion Hematology Oncology at [address] [phone] 08/26/2024 11:30 AM EST Telephone [place]ematology [place] [phone] Aniya Saab, [place] [facility] [place] [place] [address] 09/11/2024 8:30 AM EST Laboratory Appointment Lab at [facility] Hematology Oncology [address] [place] [phone] 09/11/2024 9:30 AM EST Office Visit [place]ology [place] [phone] Albania Chahal MD [facility] HEMATOLOGY/[place] [address] 09/11/2024 11:00 AM EST Appointment Hematology [place] [phone] 10/02/2024 7:45 AM EDT Laboratory Appointment Lab at [facility] Hematology Oncology [address] [place] [phone] 10/02/2024 9:[address] [place] [place] [phone] Albania Chahal MD [facility] [address] [place] [address] 10/02/2024 10:30 AM EDT Office Visit Hematology [place] [phone] Albania Chahal MD [facility] HEMATOLOGY[place] [address] 10/02/2024 12:00 PM EDT Appointment [place]ematology [place] [phone] documented as of this encounter Procedures Procedure [...] 11:45 AM EDT Pleural effusion, bilateral 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-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 THERMIT Routine 04/16/2024 10:5 2 AM EDT Pleural effusion, bilateral documented in this encounter Results * XR Chest PA & Lateral (Generic) (04/16/2024 1:08 PM EDT) [employer] Signature WORKSTATION ID [id number] RAD Anatomical Region Laterality Modality Chest N/A [...] Electronically signed by: JOSE ROBERTO CHAPIN MD, [facility] ([phone]), at 04/16/2024 1:44 PM Narrative 04/16/2024 1:44 [...] Electronically signed by: JOSE ROBERTO CHAPIN MD, [facility]([phone]), at 04/16/2024 1:44 PM Seven Saha MD IMG DX ORDERABLES * (ABNORMAL) Comprehensive metabolic panel Non-fasting (04/16/2024 12:47 PM EDT) Glucose 97 65 - 199 mg/dL 04/16/2024 1:32 PM EDT [facility] Comment:Glucose Concentratio n >=200 mg/dL plus symptoms is consistent with Diabetes Mellitus. Blood Urea Nitrogen 14 10 - 20 mg/dL 04/16/2024 1:32 PM EDT [facility] Creatinine 0.71(L) 0.80 - 1.50 mg/dL 04/16/2024 1:32 PM [facility] Sodium 140 135 - 145 mMol/L 04/16/2024 1:32 PM [facility] Potassium 4.1 3.5 - 5.0 mMol/L 04/16/2024 1:32 PM [facility] Chloride 103 98 - 107 mMol/L 04/16/2024 1:32 PM [facility] Carbon Dioxide 27 22 - 31 mMol/L 04/16/2024 1:32 PM [facility] Anion Gap 10 5 - 15 mMol/L 04/16/2024 1:32 PM [facility] Calcium 9.0 8.5 - 10.5 mg/dL 04/16/2024 1:32 PM [facility] Protein, Total 7.1 6.1 - 8.0 g/dL 04/16/2024 1:32 PM [facility] Albumin 3.5 3.2 - 5.2 g/dL 04/16/2024 1:32 PM [facility] Aspartate Aminotransferase 27 <=39 unit/L 04/16/2024 1:32 PM [facility] Alanine Aminotransferase 30 0 - 55 unit/L 04/16/2024 1:32 PM [facility] Alkaline Phosphatase 419(H) 40 - 130 unit/L 04/16/2024 1:32 PM [facility] Bilirubin, Total 0.5 <=1.3 mg/dL 04/16/2024 1:32 PM [facility] Est Glomerular Filtration Rate - Male 99 mL/min/1. 73 m?? 04/16/2024 1:32 PM [facility] Comment: This patient's estimated GFR [...] Fasting Status No 04/16/2024 1:32 PM EDT [facility] Blood VENOUS BLOOD SPECIMEN / Unknown Venipuncture / Unknown 04/16/2024 12:47 PM EDT 04/16/2024 12:47 PM EDT Seven Saha MD CHEMISTRY ORDERABLES [facility] [place] [address] * (ABNORMAL) Lactate Dehydrogenase (04/16/2024 12:47 PM EDT) Pathologist [facility] Lactate Dehydrogenase 275(H) 110 - 220 unit/L 04/16/2024 1:32 PM EDT [facility] Blood VENOUS BLOOD SPECIMEN / Unknown Venipuncture / Unknown 04/16/2024 12:47 PM EDT 04/16/2024 12:47 PM EDT Seven Saha MD CHEMISTRY ORDERABLES [facility] [place] [address] * (ABNORMAL) CBC (with Diff) (04/16/2024 12:47 PM EDT) White Blood Cell 8.36 4.00 - 9.50 x10(3)/mc L 04/16/2024 1:04 PM EDT [facility] Red Blood Cell 4.54(L) 4.58 - 5.54 x10(6)/mc L 04/16/2024 1:04 PM EDT [facility] Hemoglobin 12.1(L) 13.7 - 16.5 g/dL 04/16/2024 1:04 PM EDT [facility] Hematocrit 37.5(L) 40.5 - 48.5 % 04/16/2024 1:04 PM [facility] Mean Cell Volume 82.6(L) 82.9 - 93.1 fL 04/16/2024 1:04 PM [facility] Mean Cell Hemoglobin 26.7(L) 27.5 - 32.1 pg 04/16/2024 1:04 PM [facility] Mean Cell Hemoglobin Concentration 32.3 32.0 - 35.7 g/dL 04/16/2024 1:04 PM [facility] Platelet 725(H) 145 - 357 x10(3)/mc L 04/16/2024 1:04 PM [facility] Mean Platelet Volume 8.5 7.6 - 12.9 fL 04/16/2024 1:04 PM [facility] RDW Standard Deviation 45.0 36.0 - 45.0 fL 04/16/2024 1:04 PM [facility] RDW coefficient of variation 14.9(H) 11.4 - 13.8 % 04/16/2024 1:04 PM [facility] NRBC% auto 0.0 % 04/16/2024 1:04 PM [facility] NRBC Absolute <0.01 <0.01 x10(3)/mc L 04/16/2024 1:04 PM [facility] Neutrophil % 77.2 % 04/16/2024 1:04 PM [facility] Neutrophil Absolute (ANC) - Automated 6.46(H) 1.70 - 6.10 x10(3)/mc L 04/16/2024 1:04 PM [facility] Lymph % 14.0 % 04/16/2024 1:04 PM [facility] Lymph Absolute 1.17 0.90 - 3.20 x10(3)/mc L 04/16/2024 1:04 PM [facility] Monocyte % 7.2 % 04/16/2024 1:04 PM EDT [facility] Monocyte Absolute 0.60 0.30 - 0.90 x10(3)/mc L 04/16/2024 1:04 PM EDT [facility] Eos % 0.5 % 04/16/2024 1:04 PM EDT [facility] Eos Absolute 0.04 0.00 - 0.40 x10(3)/mc L 04/16/2024 1:04 PM EDT [facility] Basophil % 0.4 % 04/16/2024 1:04 PM EDT [facility] Baso Absolute <0.04 0.00 - 0.10 x10(3)/mc L 04/16/2024 1:04 PM EDT [facility] Immature Gran % 0.7 % 1:04 PM EDT [facility] Immature Gran Absolute 0.06(H) 0.00 - 0.04 x10(3)/mc L 04/16/2024 1:04 PM EDT [facility] Blood VENOUS BLOOD SPECIMEN / Unknown Venipuncture / Unknown 04/16/2024 12:47 PM EDT 04/16/2024 12:47 PM EDT Seven Saha MD HEMATOLOGY ORDERABLE S Performing Organization Address City/State/[facility] Co de Phone Number [facility] [place] [address] * Pathology Fluid Review (04/16/2024 11:45 AM [...] more definitive diagnosis. 04/17/2024 1:08 PM EDT [facility] Pathology Slide Review 04/17/2024 1:08 PM EDT [facility] Signing Pathologist This result has been reviewed by TERRY JEAN-BAPTISTE MD on 04/17/24 at 1:08 PM. 04/17/2024 1:08 PM EDT [facility] Body Fluid LEFT PLEURAL FLUID / Unknown 04/16/2024 11:45 AM EDT 04/16/2024 1:21 PM EDT Seven Saha MD BODY FLUIDS AND STOO LS ORDERABLES [facility] [place] [address] * Lactate Dehydrogenase Body Fluid (04/16/2024 11:45 AM EDT) Lactate Dehydrogenase, Fluid 246 unit/L 04/16/2024 2:00 PM EDT [facility] Comment:Reference intervals are unavailable for this test in body fluids. Comparison of this result with the concentration in blood serum or plasma is recommended. This test has not been cleared by the [place] FDA. Performance characteristics of this test for the analysis of body fluids were determined by [facility] in accordance with CLIA requirements. This laboratory is qualified under CLIA to perform high-complexity testing. Body Fluid Source Pleural Fluid, Left 04/16/2024 2:00 PM EDT [facility] Body Fluid LEFT PLEURAL FLUID / Unknown 04/16/2024 11:45 AM EDT 04/16/2024 1:21 PM EDT Andrea Freeman MD BODY FLUIDS AND STOO LS ORDERABLES [facility] [place] [address] * Immunophenotyping Flow Cytometry (04/16/2024 11:45 AM EDT) Final Diagnosis - No monotypic B-cell population or phenotypically abnormal T-cell population is detected. 04/17/2024 12:48 PM EDT [facility] Signing Pathologist This result has been reviewed by Jim Forrest MD on 04/17/24 at 12:48 PM. 04/17/2024 12:48 PM [facility] Interpretation No monotypic B-cell population detected. The T-cell CD4:CD8 ratio is 3.7:1, and no specific calderon-T-cell marker aberrancies are detected. 04/17/2024 12:48 PM [facility] Lymphocyte % 30.3 % 04/17/2024 12:48 PM [facility] Monocyte % 11.8 % 04/17/2024 12:48 PM [facility] Granulocyte % 32.6 % 04/17/2024 12:48 PM [facility] CD45 DIM % 0.4 % 04/17/2024 12:48 PM [facility] CD3+ % 64.0 % 04/17/2024 12:48 PM [facility] CD19+ % 8.0 % 04/17/2024 12:48 PM [facility] CD56+ % 26.0 % 04/17/2024 12:48 PM [facility] B-Cell:T-Cell Ratio 0.1 04/17/2024 12:48 PM [facility] Ship Bottom:Lambda Ratio 0.9 04/17/2024 12:48 PM [facility] CD4:CD8 Ratio 3.7 04/17/2024 12:48 PM [facility] Cell Viability % 98.5 % 04/17/20 12:48 PM [facility] Specimen Processing Cells for immunophenotypic analysis were derived from pleural fluid. The following markers were assessed: CD2, CD3, CD4, CD5, CD7, CD8, CD10, CD19, CD45, CD56, kappa light chain, and lambda light chain. 04/17/2024 12:48 PM [facility] Disclaimer Flow analysis is an ancillary study. A definite diagnosis requires correlation with the morphologic features of this process and if necessary, correlation with other ancillary studies like immunohistochemist ry, enzyme cytochemistry and/or cyto/molecular genetics. This test was developed and its performance characteristics determined by the Clinical Flow Cytometry Laboratory at [facility]. It has not been cleared or [...] clinical laboratory testing. 04/17/2024 12:48 PM EDT [facility] Body Fluid LEFT PLEURAL FLUID / Unknown 04/16/2024 11:45 AM EDT 04/16/2024 1:21 PM EDT Seven Saha MD HEMATOLOGY ORDERABLE S Performing Organization Address City/State/[facility] Co de Phone Number [facility] [place] [address] * Albumin Level Body Fluid (04/16/2024 11:45 AM EDT) Albumin, Fluid 2.1 g/dL 04/16/2024 2:00 PM EDT [facility] Comment:Reference intervals are unavailable for this test in body fluids. Comparison of this result with the concentration in blood serum or plasma is recommended. This test has not been cleared by the [place] FDA. Performance characteristics of this test for the analysis of body fluids were determined by [facility] in accordance with CLIA requirements. This laboratory is qualified under CLIA to perform high-complexity testing. Body Fluid Source Pleural Fluid, Left 04/16/2024 2:00 PM EDT [facility] Body Fluid LEFT PLEURAL FLUID / Unknown 04/16/2024 11:45 AM EDT 04/16/2024 1:21 PM EDT Seven Saha MD BODY FLUIDS AND STOO LS ORDERABLES Performing Organization Address City/[facility] Co de Phone Number [facility] [place] [address] * Body Fluid Culture, Aerobic (04/16/2024 11:45 AM EDT) Body Fluid Culture No growth 04/20/2024 9:44 AM EDT [facility] Gram Stain Cytocentrifuge Gram Stain performed 04/20/2024 9:44 AM EDT [facility] Gram Stain Neutrophils seen 04/20/20 9:44 AM EDT [facility] Gram Stain No microorganisms seen 04/20/2024 9:44 AM EDT [facility] Body Fluid LEFT PLEURAL FLUID / Unknown 04/16/2024 11:45 AM EDT 04/16/2024 1:21 PM EDT Seven Saha MD MICROBIOLOGY - [facility] ORDERABLES Performing Organization Address [facility] Co de Phone Number [facility] [place] [address] * Glucose Level Body Fluid (04/16/2024 11:45 AM EDT) Glucose, Fluid 107 mg/dL 04/16/2024 2:00 PM EDT [facility] Body Fluid Source Pleural Fluid, Left 04/16/2024 2:00 PM EDT [facility] Body Fluid LEFT PLEURAL FLUID / Unknown 04/16/2024 11:45 AM EDT 04/16/2024 1:21 PM EDT Narrative [facility] - 04/16/2024 2:00 PM EDT Reference intervals are unavailable for this test in body fluids. Comparison of this result with the concentration in blood, serum, or plasma is recommended. This test has not been cleared by the [place] FDA. Performance characteristics of this test for the analysis of body fluids were determined by [facility] in accordance with CLIA requirements. This laboratory is qualified under CLIA to perform high-complexity testing. Seven Saha MD BODY FLUIDS AND STOO LS ORDERABLES Performing Organization Address City/[facility]/ZIP Co de Phone Number [facility] [place] [address] * Protein Level Body Fluid (04/16/2024 11:45 AM EDT) Protein, Fluid 3.6 g/dL 04/16/2024 2:00 PM EDT [facility] Comment:Reference intervals are unavailable for this test in body fluids. Comparison of this result with the concentration in blood serum or plasma is recommended. This test has not been cleared by the [place] FDA. Performance characteristics of this test for the analysis of body fluids were determined by [facility] in accordance with CLIA requirements. This laboratory is qualified under CLIA to perform high-complexity testing. Body Fluid Source Pleural Fluid, Left 04/16/2024 2:00 PM EDT [facility] Body Fluid LEFT PLEURAL FLUID / Unknown 04/16/2024 11:45 AM EDT 04/16/2024 1:21 PM EDT Seven Saha MD BODY FLUIDS AND STOO LS ORDERABLES Performing Organization Address City/[facility]/ZIP Co de Phone Number [facility] [place] [address] * (ABNORMAL) Cell Count Pulmonary Fluid ([facility]) (04/16/2024 11:45 AM EDT) Color, Fld [place] 04/16/2024 2:06 PM EDT [facility] Appearance, PF Slightly Cloudy 04/16/2024 2:06 PM EDT [facility] Seg PF Count 43 % 04/16/2024 2:06 PM EDT [facility] Lymph PF Count 34 % 04/16/2024 2:06 PM EDT [facility] Macrophage PF Count 23 % 04/16/2024 2:06 PM EDT [facility] WBC Count, PF 1,093(H) <500 Cells 04/16/2024 2:06 PM EDT [facility] Comment: All body fluid results should always be interpreted in light of the total clinical presentation of the patient, including clinical history, data from additional tests and other appropriate information. FLUID DIFF COUNT 200 04/16/20 24 2:06 PM EDT [facility] Body Fluid LEFT PLEURAL FLUID / Unknown 04/16/2024 11:45 AM EDT 04/16/2024 1:21 PM EDT Seven Saha MD BODY FLUIDS AND STOO LS ORDERABLES [facility] [place] [address] * Cytology Non-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 THERMIT (04/16/2024 10:52 AM EDT) Case Report Medical Cytology Report ? Case: [id number] ? Authorizing Provider: ??Seven Saha MD ? Collected: ? 04/16/2024 1052 ? Ordering Location: ? Pulmonology at [facility] ?Received: ?04/16/2024 1311 ? Pathologist: ? Jose Luis Matute MD ? Specimen: ?Pleural Fluid, Left ? 04/18/2024 5:16 PM [facility] Specimen Source Pleural Fluid, Left 04/18/2024 5:16 PM [facility] Final Diagnosis Negative for malignancy 04/18/2024 5:16 PM [facility] Diagnosis Discussion Predominantly reactive mesothelial cells, macrophages, neutrophils, and lymphocytes present. No overtly cytologically malignant cells seen. Cell block was examined. 04/18/2024 5:16 PM [facility] Specimen Adequacy Satisfactory for evaluation. 04/18/2024 5:16 PM [facility] Additional Studies Task ID IHC/Special Stains Result A2-2 Calretinin Positive in mesothelial cells A2-3 CEA Ellis Negative A2-4 CD68 Positive in macrophages 04/18/2024 5:16 PM [facility] Disclaimer(s) Formalin-fixed, paraffin-embedded tissue sections [...] and other diagnostic tests. 04/18/2024 5:16 PM T [facility] Clinical Information Mediastinal mass 04/18/2024 5:16 PM [facility] Gross Description Received fresh, approximately 90 mL total volume of cloudy, red fluid with light flecks. Total preparation: ThinPrep: 1 and Cell Block: 1. 04/18/2024 5:16 PM [facility] Result Note Routine 04/18/2024 5:16 PM [facility] Body Fluid LEFT PLEURAL FLUID / Unknown 04/16/2024 10:52 AM EDT 04/16/2024 1:11 PM EDT Seven Saha MD PATHOLOGY/CYTOLOGY O RDERARYANN Performing Organization Address City/State/[facility] [place] [address] documented in this encounter Visit Diagnoses Diagnosis Pleural effusion, bilateral- Primary Unspecified pleural effusion Laboratory procedure Laboratory examination, unspecified Pleural effusion, bilateral Unspecified pleural effusion documented in this encounter Care Teams [employer]of[employer] Relationship Specialty Start Date End Date America Caro MD [address] [place] [id number] PCP - General Family Medicine 03/31/24 documented as of this encounter
[2024-08-22 08:22] LABS: Abs Immature Grans 0.02 10^3/uL (0.0-0.06); Absolute Basophil Count 0.04 10^3/uL (0.0-0.2); Absolute Eosinophil Count 0.08 10^3/uL (0.0-0.7); Absolute Lymphocyte Count 1.32 10^3/uL (1.2-3.4); Absolute Monocyte Count 0.43 10^3/uL (0.1-0.8); Basophils % 0.8 %; Eosinophils % 1.6 %; HCT 44.2 % (40.0-50.0); HGB 14.3 g/dL (13.5-17.5); Immature Grans % 0.4 %; Lymphocytes % 26.5 %; MCH 29.2 pg (27.0-33.0); MCHC 32.4 % (32.0-36.0); MCV 90 fL (80-95); MPV 8.9 fL (8.0-11.0); Monocytes % 8.6 %; Neutrophils % 62.1 %; Platelet Count 191 10^3/uL (130-400); RBC 4.89 10^6/uL (4.36-5.78); RDW 20.2 % (11.8-14.1); RDW-SD 66.3 fL; WBC 4.99 10^3/uL (4.4-10.8)
[2024-08-22 08:24] LABS: Bilirubin Negative (Negative); Blood Trace-lysed (Negative); Clarity Clear (Clear); Glucose Negative (Negative); Ketones Negative (Negative); Leukocyte Esterase Negative (Negative); Nitrite Negative (Negative); Urobilinogen 0.2 mg/dL (Up to 0.2); pH 5.5 (5-8)
[2024-08-22 08:32] LABS: Anisocytosis 1+
[2024-08-22 08:37] LABS: Bacteria Negative HPF (Negative); C & S Indicated? No; Casts Negative LPF (Negative); Crystals Negative HPF (Negative); Epithelial Cells Negative HPF (Negative); Mucus Negative (Negative); RBC 0-2 HPF (0-2); WBC 0-2 HPF (0-5)
[2024-08-22 08:37] LABS: ALT 26 U/L (16-63); AST 22 U/L (15-37); Albumin 3.6 g/dL (3.4-5.0); Alkaline Phosphatase 109 U/L (46-116); Anion Gap 1.3 mmol/L (3-11); BUN 17 mg/dL (7-18); Bilirubin, Total 0.41 mg/dL (0.2-1.0); CO2 32.7 mmol/L (21.0-32.0); CREATININE 1.1 mg/dL (0.70-1.30); Calcium 8.9 mg/dL (8.5-10.1); Chloride 106 mmol/L (98-107); Estimated GFR 72.22 (mL/min/1.73m2); Glucose 62 mg/dL (74-106); LDH 148 U/L (85-227); Magnesium 2.2 mg/dL (1.8-2.4); Sodium 140 mmol/L (136-145); Total Protein 7.3 g/dL (6.4-8.2)
== END 2024-08-22 01:15 | disposition home or self-care (01) ==
PROVIDERS: PCP Family Medicine; Visit Provider Internal Medicine
DX: C37 Malignant neoplasm of thymus (principal)
CPT/HCPCS: 36415; 80053; 81003; 81015; 83615; 83735; 85025

== ENCOUNTER 2025-01-22 01:28 | Outpatient (CLI) | payer MEDICARE, BC, SELFPAY ==
--- NOTE | 2025-01-22 | DI.CT_ITS ---
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 TECHNIQUE: Imaging Protocol: Axial computed tomography images with coronal and sagittal reformatted images were created and reviewed. Images were performed before IV contrast and following IV contrast using a 30, 70 second delay, followed by 5 minute delayed images. CONTRAST MATERIAL: Intravenous: Omnipaque 350 Contrast volume:100 cc Oral:Yes COMPARISON: CT CT CHEST W from 05/09/[address] CHEST/ABD/PEL W from 08/04/[address] CHEST W LEB from 01/13/[address] CHEST W CONTRAST from 01/13/2025 FINDINGS: Lung Bases: Normal where visualized. Liver: Normal density. 2.6 cm low-density lesion is now seen in the inferior, anterior aspect of the liver. No additional lesions. The finding is new compared to prior exams, suspicious for metastasis. Gallbladder and biliary tract: Cholecystectomy. No biliary dilation. Pancreas: Normal density, no abnormal calcifications or inflammatory process. Spleen: Normal. Kidneys: Normal size, contour and axis. No radiodense stones or obstructive uropathy. No suspicious masses seen. Adrenal glands: No masses seen. Lymph nodes: 1 centimeter lymph node again identified anterior to the esophagus near the level of the diaphragm. Abdominal Aorta: Abdominal portion non-dilated. Soft tissues: Unremarkable. Bladder: Mild wall thickening. No evidence of a mass.No evidence of calculi. Bowel: Stomach unremarkable. No obstruction or bowel wall thickening. Appendix normal. Increased quantity of stool from the cecum through splenic flexure. Peritoneal cavity: No ascites, collection or mesenteric inflammatory response. Bones: Abnormal lucencies are noted in both iliac crests, similar to prior. Stable small lucency in L4. Area of sclerosis the superior endplate of T2 as well as at the S2 1 level. Reproductive organs: Enlarged prostate impresses on the base of the bladder. IMPRESSION: New 2.6 centimeter mass severe right lobe of the liver, suspicious for metastatic lesion. No additional lesions are identified. Stable bone lucencies. RADIATION DOSE DELIVERED: Total DLP DATA REPOSITORY: All CT scans at this facility are submitted to the National Radiology Data Registry (NRDR) Dose Index Registry (DIR) with the [employer] ([employer]). RADIATION OPTIMIZATION: All CT scans at this facility use at least one of these dose optimization techniques: automated exposure control; mA and/or kV adjustment per patient size (includes targeted exams where dose is matched to clinical indication); or iterative reconstruction.
[2025-01-22] MEDS: Barium Sulfate 2% W/V-Berry Smoothie 450 ML BTL PO (13:08)
[2025-01-22] MEDS: Barium Sulfate 2% W/V-Creamy Vanilla Smoothie 450 ML BTL PO (13:09)
[2025-01-22 13:51] LABS: ALT 24 U/L (16-63); AST 23 U/L (15-37); Albumin 4.3 g/dL (3.4-5.0); Alkaline Phosphatase 82 U/L (46-116); Anion Gap 7.2 mmol/L (3-11); BUN 15 mg/dL (7-18); Bilirubin, Total 0.5 mg/dL (0.2-1.0); CO2 29.8 mmol/L (21.0-32.0); Calcium 8.8 mg/dL (8.5-10.1); Chloride 102 mmol/L (98-107); Estimated GFR 91.31 (mL/min/1.73m2); Glucose 86 mg/dL (74-106); Potassium 4.1 mmol/L (3.5-5.1); Sodium 139 mmol/L (136-145); Total Protein 7.7 g/dL (6.4-8.2)
[2025-01-22] MEDS: Normal Saline - Diluent 50 ML VIAL IJ (15:20)
[2025-01-22] MEDS: Omnipaque 350 MG/ML 100 ML BTL 75 ML IJ (15:21)
== END 2025-01-22 01:48 ==
PROVIDERS: PCP Family Medicine; Visit Provider Internal Medicine
DX: C37 Malignant neoplasm of thymus (principal); K76.9 Liver disease, unspecified; C79.51 Secondary malignant neoplasm of bone
CPT/HCPCS: 80053; 74178; J3490